=== PATIENT | male | born 1950 | race Caucasian/White ===

== ENCOUNTER 2016-05-25 16:18 | Emergency (ER) | payer OTHER ==
[~2016-05-25] VITALS: Ht 182.9 cm; Wt 97.1 kg
[~2016-05-25 16:18] MED LIST: CHOL100010 PO; CIPR-255 PO; CLC100 PO; DTR5 PO; LISI20TA3 PO; MULT-506 PO; OMEG10007 PO; OXYC-59 PO; OXYC1TAB3 PO; PRAV20TA PO; PXL/40 PO
[2016-05-25 16:24] VITALS: TEMP 36.7; Ht 182.9 cm; Wt 97.1 kg
[2016-05-25] MEDS ORDERED: CIPROFLOXACIN 500 MG TAB PO STA (17:07)
[2016-05-25] MEDS ORDERED: CIPR-255 PO (17:20)
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
[2016-05-25] MEDS ORDERED: PXL20 PO (17:36)
[2016-05-25] MEDS ORDERED: PRVC/20 PO (17:36)
[2016-05-25] MEDS ORDERED: LSN20 PO (17:36)
[2016-05-25] MEDS ORDERED: OXYC-609 PO (17:42)
[2016-05-25 17:44] LABS: MANUAL MICROSCOPIC REQUIRED? YES; REVIEW REQ? NO; SULFASALICYLIC ACID POS (NEG); URINE APPEARANCE T (CLEAR); URINE COLOR RED; URINE SPECIFIC GRAVITY 1.029 (1.000-1.030)
[2016-05-25 17:54] LABS: URINE BACTERIA 1+ (NEG); URINE RBC >30 /hpf (0-4); URINE WBC >30 /hpf (0-5); ZZUR CULT IF INDIC CLEAN CATCH YES
[2016-05-25 18:11] VITALS: BP 135/80; PULSE 79; O2SAT 98
[2016-05-25] MEDS ORDERED: METF-384 PO (22:47)
== END 2016-05-25 17:50 | disposition home or self-care (01) ==
LOC: C.EDB 16:19 → C.EDC 17:50
DX: R31.9 Hematuria, unspecified (principal); I10 Essential (primary) hypertension; Z98.890 Other specified postprocedural states; F17.200 Nicotine dependence, unspecified, uncomplicated; Z83.3 Family history of diabetes mellitus; Z80.9 Family history of malignant neoplasm, unspecified; Z88.0 Allergy status to penicillin; Z85.46 Personal history of malignant neoplasm of prostate

== ENCOUNTER 2016-06-08 20:30 | Emergency (ER) | payer OTHER ==
[~2016-06-08] VITALS: Ht 182.9 cm; Wt 102.3 kg
[~2016-06-08 20:30] MED LIST changes: -LISI20TA3 PO; +LSN20 PO; +METF-384 PO; -OXYC-59 PO; +OXYC-609 PO; -OXYC1TAB3 PO; -PRAV20TA PO; +PRVC/20 PO; -PXL/40 PO; +PXL20 PO
[2016-06-08 20:35] VITALS: TEMP 36.7; Ht 182.9 cm; Wt 102.3 kg
[2016-06-08 20:37] VITALS: O2SAT 98
[2016-06-08] MEDS ORDERED: SODIUM CHLORIDE 0.9% 1000ML 1,000 ML IV STA (20:45)
[2016-06-08 21:00] LABS: BASO % 0.1 %; BASO ABS # 0.01 K/uL (0-0.2); COMPLETE YES; EOS % 2.8 %; HEMATOCRIT 40.3 % (42-52); IG% 0.3 %; LYMPH % 21.1 %; LYMPH ABS # 2.48 K/uL (1.2-3.4); MEAN CELL VOLUME 90.8 fL (80-100); MEAN CORPUSCULAR HEMOGLOBIN 32.4 pg (25-34); MEAN CORPUSCULAR HGB CONC 35.7 g/dl (32-36); MEAN PLATELET VOLUME 9.3 fL (7.4-10.4); MONO % 7.7 %; PLATELET COUNT 377 K/uL (130-400); RED BLOOD COUNT 4.44 M/uL (4.7-6.1); WHITE BLOOD COUNT 11.73 K/uL (4.8-10.8)
--- NOTE | 2016-06-08 21:18 | DIAGNOSTIC IMAGING REPORT ---
HEAD CT NONCONTRAST CT DOSE: 712.55 mGy.cm HISTORY: Mental status change altered ms and headache TECHNIQUE: Multiaxial CT images of the head were performed without the use of intravenous contrast. Comparison: None. Findings: The paranasal sinuses and mastoid air cells are clear. The calvarium and skull base are intact. The ventricles and sulci are within normal limits. There is no mass, hematoma, midline shift, or acute infarct. Impression: No acute intracranial abnormality. Electronically signed by: Calixto Walker M.D. 06/08/2016 9:16 PM Dictated Date/Time: 06/08/2016 9:16 PM
[2016-06-08 21:23] LABS: ALT/SGPT 24 U/L (12-78); BLOOD UREA NITROGEN 30 mg/dl (7-18); BUN/CREATININE RATIO 14.3 (10-20); CALCIUM 8.8 mg/dl (8.5-10.1); CARBON DIOXIDE 22 mmol/L (21-32); CHLORIDE 104 mmol/L (98-107); GLUCOSE 115 mg/dl (70-99); POTASSIUM 4.1 mmol/L (3.5-5.1); SODIUM 139 mmol/L (136-145)
[2016-06-08 21:33] LABS: ALKALINE PHOSPHATASE 119 U/L (45-117); AST/SGOT 20 U/L (15-37); CKMB/CK RATIO 1.7 (0-3.0)
[2016-06-08 21:56] LABS: REVIEW REQ? NO; URINE APPEARANCE CLEAR (CLEAR); URINE BILIRUBIN NEG (NEG); URINE COLOR YELLOW; URINE EPITHELIAL CELL AUTO 20-30 /lpf (0-5); URINE NITRITE NEG (NEG); URINE PH 5.5 (4.5-7.5); URINE SPECIFIC GRAVITY 1.021 (1.000-1.030); UROBILINOGEN NEG (NEG)
[2016-06-08 21:57] LABS: MANUAL MICROSCOPIC REQUIRED? NO
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
[2016-06-08] MEDS ORDERED: OXYCODONE IR HOME PACK PO ONE (23:30)
[2016-06-08 23:35] VITALS: BP 114/78; PULSE 69; O2SAT 98
== END 2016-06-08 23:35 | disposition home or self-care (01) ==
LOC: EDBD 20:30 → C.EDB 20:33
DX: R55 Syncope and collapse (principal); N28.9 Disorder of kidney and ureter, unspecified; E11.9 Type 2 diabetes mellitus without complications; I10 Essential (primary) hypertension; R41.0 Disorientation, unspecified; Z85.46 Personal history of malignant neoplasm of prostate; Z90.79 Acquired absence of other genital organ(s); Z98.890 Other specified postprocedural states; Z82.49 Family history of ischemic heart disease and other diseases of the circulatory system; Z79.84 Long term (current) use of oral hypoglycemic drugs; Z79.899 Other long term (current) drug therapy

== ENCOUNTER → 2016-06-23 | Outpatient (CLI) | payer OTHER ==
[~2016-06-23] MED LIST changes: -CIPR-255 PO; -DTR5 PO
--- NOTE | 2016-06-23 11:29 | DIAGNOSTIC IMAGING REPORT ---
C-SPINE ROUTINE 4 OR 5 VIEWS CLINICAL HISTORY: Cervical radiculopathy. COMPARISON STUDY: Cervical spine radiographs October 18, 2012 and MRI the cervical spine October 21, 2012 FINDINGS: Visualization of the cervical spine is adequate. Slight retrolisthesis of C5 on C6 is unchanged. There is moderate to marked disc space narrowing at this level. There is moderate to severe multilevel facet arthrosis most pronounced at the C4-C5 and C5-C6 levels. There is no fracture or suspicious lesion. IMPRESSION: 1. No cervical spine fracture or subluxation. 2. Moderate to severe multilevel degenerative disc disease and facet arthrosis, most pronounced at C5-C6. 3. Slight retrolisthesis of C5 on C6 which is unchanged. Electronically signed by: Issac Vu M.D. 06/23/2016 11:28 AM Dictated Date/Time: 06/23/2016 11:25 AM
[2016-06-23 12:14] LABS: BLOOD UREA NITROGEN 28 mg/dl (7-18); BUN/CREATININE RATIO 21.2 (10-20)
[2016-06-23 12:18] LABS: PROSTATE SPECIFIC ANTIGEN < 0.010 ng/ml (0.000-4.000)
== END | disposition home or self-care (01) ==
LOC: C.RAD 10:30
PROVIDERS: ATTEND Urology
DX: M54.2 Cervicalgia (principal); M54.12 Radiculopathy, cervical region

== ENCOUNTER → 2016-09-20 | Outpatient (CLI) | payer OTHER ==
[2016-09-20 13:27] LABS: BLOOD UREA NITROGEN 25 mg/dl (7-18)
== END | disposition home or self-care (01) ==
LOC: C.LAB 11:59
PROVIDERS: ATTEND Family Medicine
DX: R79.89 Other specified abnormal findings of blood chemistry (principal)

== ENCOUNTER 2016-10-03 10:16 | Emergency (ER) | payer OTHER ==
[~2016-10-03] VITALS: Ht 182.9 cm; Wt 98.7 kg
[2016-10-03 10:19] VITALS: Ht 182.9 cm; Wt 98.7 kg
[2016-10-03] MEDS ORDERED: KETOROLAC TROMETHAMINE 60 MG/2 ML VIAL IM STA (11:27)
[2016-10-03] MEDS ORDERED: HYDROmorphone INJ 1 MG/ML SYR IM STA (11:27)
[2016-10-03] MEDS ORDERED: ONDANSETRON 4MG OD TAB PO STA (11:27)
--- NOTE | 2016-10-03 12:07 | DIAGNOSTIC IMAGING REPORT ---
LEFT SHOULDER MIN 2 VIEWS ROUTINE CLINICAL HISTORY: Left shoulder pain following lifting. COMPARISON: None FINDINGS: Alignment of the left shoulder is anatomic. There is no fracture or suspicious lesion. There is moderate AC joint arthrosis and mild glenohumeral joint arthrosis. IMPRESSION: 1. No acute fracture or dislocation of the left shoulder. 2. Moderate left acromioclavicular joint osteoarthritis and mild left glenohumeral joint arthritis. Electronically signed by: Issac Vu M.D. 10/03/2016 12:06 PM Dictated Date/Time: 10/03/2016 12:05 PM
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
[2016-10-03 13:23] VITALS: BP 121/88; PULSE 71; TEMP 36.8; O2SAT 94
== END 2016-10-03 13:24 | disposition home or self-care (01) ==
LOC: C.EDB 10:18
DX: M25.512 Pain in left shoulder (principal); M54.2 Cervicalgia; G89.29 Other chronic pain; E11.9 Type 2 diabetes mellitus without complications; I10 Essential (primary) hypertension; Z79.899 Other long term (current) drug therapy

== ENCOUNTER → 2016-10-29 | Outpatient (CLI) | payer OTHER | END | disposition home or self-care (01) | LOC: C.RDSM 14:22 | PROVIDERS: ATTEND Family Medicine | DX: M65.812 Other synovitis and tenosynovitis, left shoulder (principal); M54.5 Low back pain; C61 Malignant neoplasm of prostate ==

== ENCOUNTER → 2016-11-01 | Outpatient (CLI) | payer OTHER ==
--- NOTE | 2016-11-01 14:54 | DIAGNOSTIC IMAGING REPORT ---
WHOLE-BODY NUCLEAR BONE SCAN CLINICAL HISTORY: Low back pain. Reported history of prostate cancer. COMPARISON STUDY: Bone scan of the cervical spine. Radiographs of the lumbar spine dated 10/29/2016. Abdominal CT dated 06/28/2015.. TECHNIQUE: Three hours following the IV administration of 26.7 mCi of technetium 99m MDP, whole body nuclear bone scan was performed in the anterior and posterior projections. FINDINGS: There is no abnormal osseous tracer deposition identified typical in appearance for bony metastatic disease. Typically degenerative uptake is identified in the shoulders, knees, hips, ankles, and feet. Typically degenerative activity is seen throughout the spine, greatest in the lumbar region. There is paraspinous activity consistent with bone graft material from previous spinal surgery. There is expected excreted activity within the renal collecting system and bladder. IMPRESSION: 1. There is no abnormal tracer deposition identified typical in appearance for bony metastatic disease. 2. Typically degenerative as well as postoperative activity is noted throughout the spine. Electronically signed by: Perry Noe M.D. 11/01/2016 2:52 PM Dictated Date/Time: 11/01/2016 2:39 PM
== END | disposition home or self-care (01) ==
LOC: C.NUCL 10:34
PROVIDERS: ATTEND Family Medicine
DX: M54.5 Low back pain (principal); C61 Malignant neoplasm of prostate

== ENCOUNTER → 2016-11-10 | Outpatient (CLI) | payer OTHER ==
[2016-11-10 10:56] LABS: BLOOD UREA NITROGEN 36 mg/dl (7-18); BUN/CREATININE RATIO 29.8 (10-20)
[2016-11-10 11:02] LABS: PROSTATE SPECIFIC ANTIGEN < 0.010 ng/ml (0.000-4.000)
== END | disposition home or self-care (01) ==
LOC: C.LAB 10:01
PROVIDERS: ATTEND Urology
DX: N52.9 Male erectile dysfunction, unspecified (principal)

== ENCOUNTER 2017-01-12 15:51 | Emergency (ER) | payer OTHER ==
[~2017-01-12] VITALS: Ht 182.9 cm; Wt 101.0 kg
[2017-01-12 15:53] VITALS: Ht 182.9 cm; Wt 101.0 kg
[2017-01-12 17:53] VITALS: BP 159/80; PULSE 75; TEMP 36.7; O2SAT 96
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
== END 2017-01-12 17:53 | disposition home or self-care (01) ==
LOC: C.EDB 15:53 → C.EDD 17:53
DX: M54.2 Cervicalgia (principal); M54.5 Low back pain; M25.511 Pain in right shoulder; M25.512 Pain in left shoulder; E11.9 Type 2 diabetes mellitus without complications; H02.009 Unspecified entropion of unspecified eye, unspecified eyelid; I10 Essential (primary) hypertension

== ENCOUNTER → 2017-02-06 | Outpatient (CLI) | payer OTHER ==
[~2017-02-06] MED LIST changes: -CHOL100010 PO; -CLC100 PO; -OXYC-609 PO
== END | disposition home or self-care (01) ==
LOC: C.RDSM 13:48
PROVIDERS: ATTEND Family Medicine
DX: M25.512 Pain in left shoulder (principal)

== ENCOUNTER → 2017-05-02 | Outpatient (CLI) | payer OTHER, MEDICARE ==
--- NOTE | 2017-05-02 09:16 | DIAGNOSTIC IMAGING REPORT ---
LUMBAR SPINE W/O CONTRAST HISTORY: Pain. Neuropathy. LUMBAR PAIN TECHNIQUE: Multiplanar multisequence MRI of the lumbar spine was performed without the use of contrast. COMPARISON: None. FINDINGS: For the purpose of the report the L5-S1 disc space will be located on axial image 28 of 30. Findings consistent with a posterior laminectomy and fusion with interpedicular screws from L3 through S1. Vertebral body alignment is anatomic. There is moderate degenerative disc changes throughout. Sagittal images suggest narrowing of the spinal canal at L2-L3. L1-L2: No significant central canal or neural foraminal narrowing. L2-L3: Moderate multifactorial narrowing of the spinal canal. Moderate broad-based disc herniation. Moderate impact upon the anterior thecal sac. Mild narrowing of the neuroforamina bilaterally. This is slightly more prominent on the right. L3-L4: Posterior laminectomy and fusion. No significant narrowing of the spinal canal L4-L5: Posterior laminectomy and fusion. No significant narrowing of spinal canal. L5-S1: Posterior laminectomy and fusion. No significant narrowing of spinal canal. IMPRESSION: 1. Moderate multifactorial narrowing of the spinal canal at L2-L3 associated with a moderate broad-based disc herniation. 2. There is also narrowing to a significant degree of the right and to lesser extent left neural foramina. 3. Findings consistent with posterior laminectomy and fusion from L3 through S1 with the spinal canal widely patent at those sites The above report was generated using voice recognition software. It may contain grammatical, syntax or spelling errors. Electronically signed by: Calixto Walker M.D. 05/02/2017 9:15 AM Dictated Date/Time: 05/02/2017 9:07 AM
== END | disposition home or self-care (01) ==
LOC: C.MRI 08:06
PROVIDERS: ATTEND Orthopaedic Surgery Orthopaedic Surgery of the Spine
DX: M54.5 Low back pain (principal); M99.73 Connective tissue and disc stenosis of intervertebral foramina of lumbar region

== ENCOUNTER 2017-05-18 19:43 | Emergency (ER) | payer OTHER, MEDICARE ==
[~2017-05-18] VITALS: Ht 182.9 cm; Wt 98.0 kg
[~2017-05-18 19:43] MED LIST changes: -METF-384 PO
[2017-05-18 19:50] VITALS: TEMP 36.7; Ht 182.9 cm; Wt 98.0 kg
[2017-05-18] MEDS ORDERED: HYDROmorphone INJ 2 MG/ML SYR/VIAL IM STA (20:19)
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
[2017-05-18] MEDS ORDERED: VLM5CL PO (20:49)
[2017-05-18] MEDS ORDERED: SILD1TAB20 PO (20:49)
[2017-05-18] MEDS ORDERED: OXYC-164 PO (20:49)
[2017-05-18 21:01] VITALS: BP 120/69; PULSE 69; O2SAT 94
[2017-05-18] MEDS ORDERED: METF-384 PO (22:47)
== END 2017-05-18 21:02 | disposition home or self-care (01) ==
LOC: C.EDB 19:44 → C.EDD 21:02
DX: M54.5 Low back pain (principal); M25.512 Pain in left shoulder; M54.2 Cervicalgia; E11.9 Type 2 diabetes mellitus without complications; I10 Essential (primary) hypertension; Z79.899 Other long term (current) drug therapy

== ENCOUNTER → 2017-08-02 | Outpatient (CLI) | payer OTHER, MEDICARE ==
[~2017-08-02] MED LIST changes: +METF-384 PO; +OXYC-164 PO; +SILD1TAB20 PO; +VLM5CL PO
[2017-08-02 10:29] LABS: ALBUMIN 3.7 gm/dl (3.4-5.0); ALT/SGPT 21 U/L (12-78); BLOOD UREA NITROGEN 19 mg/dl (7-18); CALCIUM 8.2 mg/dl (8.5-10.1); CARBON DIOXIDE 24 mmol/L (21-32); CHOLESTEROL 227 mg/dl (0-200); CREATININE 1.59 mg/dl (0.60-1.40); GLUCOSE 114 mg/dl (70-99); POTASSIUM 4.1 mmol/L (3.5-5.1); SODIUM 134 mmol/L (136-145)
[2017-08-02 10:32] LABS: ALKALINE PHOSPHATASE 76 U/L (45-117); AST/SGOT 28 U/L (15-37); LDL CHOLESTEROL CALCULATED 172 mg/dl; TOTAL PROTEIN 7.2 gm/dl (6.4-8.2)
[2017-08-02 10:32] LABS: BLOOD UREA NITROGEN 19 mg/dl (7-18); CREATININE 1.52 mg/dl (0.60-1.40)
[2017-08-02 10:43] LABS: HEMOGLOBIN A1C 5.5 % (4.5-5.6)
== END | disposition home or self-care (01) ==
LOC: C.LAB 07:10
PROVIDERS: ATTEND Nurse Practitioner Family
DX: E78.5 Hyperlipidemia, unspecified (principal); I10 Essential (primary) hypertension; E11.9 Type 2 diabetes mellitus without complications

== ENCOUNTER 2017-08-10 21:33 | Emergency (ER) | payer OTHER, MEDICARE ==
[~2017-08-10] VITALS: Ht 182.9 cm; Wt 95.4 kg
[2017-08-10 21:39] VITALS: Ht 182.9 cm; Wt 95.4 kg
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
[2017-08-10 22:31] VITALS: BP 146/86; PULSE 78; TEMP 36.7; O2SAT 97
== END 2017-08-10 22:32 | disposition home or self-care (01) ==
LOC: C.EDB 21:35 → C.EDC 22:32
DX: M54.9 Dorsalgia, unspecified (principal); E11.9 Type 2 diabetes mellitus without complications; I10 Essential (primary) hypertension; Z82.49 Family history of ischemic heart disease and other diseases of the circulatory system

== ENCOUNTER 2017-11-28 22:41 | Emergency (ER) | payer OTHER, MEDICARE ==
[~2017-11-28] VITALS: Ht 182.9 cm; Wt 91.9 kg
[~2017-11-28 22:41] MED LIST changes: +LISI-726 PO; -LSN20 PO; +MRPSR15 PO; -OXYC-164 PO; +PARO1TAB27 PO; +PRX/40 PO; -PXL20 PO; +RXC5 PO; -SILD1TAB20 PO; +SILD1TAB31 PO
[2017-11-28 22:46] VITALS: TEMP 36.8; Ht 182.9 cm; Wt 91.9 kg
[2017-11-28] MEDS ORDERED: MoRPHine SULFATE 10 MG/ML CARP/VIAL IM STA (23:11)
[2017-11-28] MEDS ORDERED: DEXAMETHASONE **PF** INJ 10 MG/ML VIAL IM STA (23:11)
[2017-11-28] MEDS ORDERED: GLUCTAB7 PO (23:34)
[2017-11-28] MEDS ORDERED: MULTCAP7 PO (23:34)
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
--- NOTE | 2017-11-29 00:45 | EMERGENCY ROOM VISIT NOTE ---
ED Visit Note First contact with patient: 23:00 Staff note: I have reviewed the Patients chart and have discussed this case with my PA. I generally agree with the ED note and findings.
[2017-11-29 00:50] VITALS: BP 123/79; PULSE 80; O2SAT 94
[2017-11-29] MEDS ORDERED: METH4PAK PO (01:10)
--- NOTE | 2017-11-29 06:42 | DIAGNOSTIC IMAGING REPORT ---
L-SPINE MIN 4 VIEWS ROUTINE HISTORY: 67 years-old Male low back pain with right radiculopathy acute low back pain COMPARISON: Spot fluoroscopic images of the lumbar spine 10/03/2017 TECHNIQUE: 5 views of the lumbar spine FINDINGS: Prior laminectomy with posterior interbody sherry and screw fusion and L2-S1. Discectomy changes at L2-L3, L4-L5 and L5-S1. No evidence of hardware fracture or loosening. There is 4 mm retrolisthesis L3 on L4 with otherwise satisfactory alignment. Multilevel spondylitic spurring. Intervertebral disc space narrowing is seen about the imaged lower thoracic spine and also at L3-L4. IMPRESSION: 1. No acute fracture. 2. Postoperative changes of the lumbar spine as above. No evidence of hardware fracture or loosening. 3. 4 mm retrolisthesis L3 on L4. The above report was generated using voice recognition software. It may contain grammatical, syntax or spelling errors. Electronically signed by: Wolfgang Cedillo M.D. 11/29/2017 6:40 AM Dictated Date/Time: 11/29/2017 6:37 AM
--- NOTE | 2017-11-29 06:54 | DIAGNOSTIC IMAGING REPORT ---
CERVICAL SPINE 2 OR 3 VIEWS HISTORY: 67 years-old Male neck pain acute neck pain without known injury COMPARISON: Cervical spine radiographs 06/23/2016 TECHNIQUE: 3 views of the cervical spine FINDINGS: Moderate to severe intervertebral disc space narrowing at C5-C6 with spondylitic spurring. Unchanged 3 mm retrolisthesis C5 on C6, likely degenerative. Mild multilevel facet arthropathy, at least moderate within the lower cervical spine levels. There is mild straightening of the normal cervical lordosis. No acute fracture or subluxation is identified. No prevertebral soft tissue swelling. The imaged lung apices are clear. IMPRESSION: 1. No acute fracture or subluxation. 2. Moderate to severe intervertebral disc space narrowing redemonstrated at C5-C6. 3. Multilevel facet arthropathy. The above report was generated using voice recognition software. It may contain grammatical, syntax or spelling errors. Electronically signed by: Wolfgang Cedillo M.D. 11/29/2017 6:53 AM Dictated Date/Time: 11/29/2017 6:51 AM
== END 2017-11-29 00:53 | disposition home or self-care (01) ==
LOC: C.EDB 22:43 → C.EDC 11-29 00:53
DX: G89.29 Other chronic pain (principal); M54.41 Lumbago with sciatica, right side; M54.2 Cervicalgia; M25.512 Pain in left shoulder; E11.9 Type 2 diabetes mellitus without complications; Z79.84 Long term (current) use of oral hypoglycemic drugs; E78.5 Hyperlipidemia, unspecified; Z98.1 Arthrodesis status; Z88.0 Allergy status to penicillin; Z91.048 Other nonmedicinal substance allergy status

== ENCOUNTER 2018-06-16 05:48 | Observation (INO) ==
--- NOTE | 2018-06-02 09:07 | Anesthesiology Consultation ---
Date of Service June 02, 2018 Assessment & Plan (1) Encounter for pre-operative examination: Plan: - Check BSG AM DOS Chart Review Chart Review: Acceptable Risk for Surgery and Patient seen in Pre Admission Testing Teaching & Discussion Pre-Anesthesia Teaching/Discussion Notes: Instructed NPO after midnight before surgery,except medications with 15 cc of water. Medication instructions provided according to the PAT guidelines. History Surgery Operation Date: 06/16/18 07:45 Proposed Procedures p C5-C6 Anterior Cervical Discectomy and Fusion - Sanchez Blank DO Height/Weight Height: 6 ft Weight: 95 kg Allergies Allergy/AdvReac Type Severity Reaction Status Date / Time mold Allergy Mild NASAL Verified 05/29/18 08:39 CONGESTION,DIFFICULTY BREATHING Penicillins Allergy Mild CHILD Verified 05/29/18 08:39 RASH HIVES Dust Allergy Intermediate receives Uncoded 05/29/18 08:39 allergy shots-NASAL CONGESTION,DIFFICULTY BREATHING Medications Home Medications Medication Instructions Recorded Confirmed Last Taken diazepam [Valium] 5 mg PO HS 01/28/18 05/29/18 05/14/18 glucosamine-chondroitin 1 tab PO 01/28/18 05/29/18 05/14/18 lisinopril [Zestril] 20 mg PO HS 01/28/18 05/29/18 05/14/18 metformin 500 mg PO HS 01/28/18 05/29/18 05/14/18 multivitamin 1 tab PO 01/28/18 05/29/18 05/14/18 omega 6-hir-njn-fish oil [Fish Oil] 1 cap PO 01/28/18 05/29/18 05/14/18 paroxetine HCl [Paxil] 40 mg PO 01/28/18 05/29/18 05/14/18 paroxetine HCl [Paxil] 60 mg PO 01/28/18 05/29/18 05/14/18 pravastatin [Pravachol] 20 mg PO 01/28/18 05/29/18 05/14/18 meloxicam 15 mg PO 05/09/18 05/29/18 05/14/18 Past Medical History Medical History Anxiety CKD (chronic kidney disease) Cancer PROSTATE CANCER (2017) Depression 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, type 2 NIDDM Hepatitis C "RESOLVED" SPONTANEOUSLY Hyperlipidemia Hypertension Past Family History Family History Uncle Family history of diabetes mellitus Mother FHx: breast cancer Aneurysm FRONTAL LOBE Father FHx: aortic aneurysm Past Surgical History Surgical History History of spinal fusion LUMBAR AREA X2 History of appendectomy History of colonoscopy History of herniorrhaphy INGUINAL HERNIA REPAIR History of nasal septoplasty History of prostatectomy History of repair of rotator cuff B/L History of tonsillectomy Past Anesthesia History No Hx of Anesthesia Complications and No Family Hx of Anesthesia Complications History of PONV No Motion Sickness Screening History of Motion Sickness: No STOP BANG Total 5 Social History Smoking Status: Former smoker tobacco type: cigarettes Smoking cigarettes per day: QUIT 1979 Do You Dip or Chew Tobacco: No Hx Alcohol Use: No Hx Substance Use: No substance use type: does not use Exercise / Class Metabolic Activity II 4-5 Yardwork/Stairs/Walk up hill Review of Systems Patient denies chest pain, shortness of breath, dyspnea on exertion, wheezing, palpitations. Physical Exam Vital Signs VITALS BP 131/80 P 86 TEMP 98.2 SP02 95%RA RESP 16 Full neck and c-spine range of motion. Full TMJ range of motion. TMD 3 finger breaths Mallampati Score 2 Dentition: cavity "fell out" on right upper, upper front caps, crown on molar Lungs: clear throughout to auscultation Cardiac: regular rate and rhythm, no murmurs noted Spine: normal Carotid arteries: negative bruit Extremities: no edema Testing Electrocardiogram Date: 09/04/17 Findings: + NSR @ (76) Chest X-Ray Date: 09/04/17 Findings: + NAD Laboratory Results Blood Type A Positive 06/02/18 10:01 Antibody Screen NEGATIVE 06/02/18 10:01 PT 10.4 Seconds (9.0-12.0) 06/02/18 10:01 INR 1.0 (0.9-1.1) 06/02/18 10:01 APTT 23.1 Seconds (21.0-31.0) 06/02/18 10:01 Hemoglobin A1c 5.5 % (4.5-5.6) 06/02/18 10:01 Urine Color Dark Yellow 06/02/18 Unknown Urine Appearance Clear (Clear) 06/02/18 Unknown Urine pH 5.0 (4.5-7.5) 06/02/18 Unknown Ur Specific Kenney 1.024 (1.000-1.030) 06/02/18 Unknown Urine Protein Trace (Negative) H 06/02/18 Unknown Urine Glucose (UA) Negative (Negative) 06/02/18 Unknown Urine Ketones Trace (Negative) H 06/02/18 Unknown Urine Nitrite Negative (Negative) 06/02/18 Unknown Ur Leukocyte Esterase Negative (Negative) 06/02/18 Unknown Urine WBC (Auto) 5-10 /hpf (0-5) H 06/02/18 Unknown Urine RBC (Auto) 5-10 /hpf (0-4) H 06/02/18 Unknown U Hyaline Cast (Auto) 5-10 /lpf (0-5) H 06/02/18 Unknown U Epithel Cells (Auto) >30 /lpf (0-5) H 06/02/18 Unknown Urine Bacteria (Auto) Negative (Negative) 06/02/18 Unknown 05/09/18 WBC 6.1 H/H 14.8/41.5 PLATELETS 240 SODIUM 142 POTASSIUM 4.0 CHLORIDE 109 CO2 26 BUN 17 CREATININE 1.44 GLUCOSE 95
--- NOTE | 2018-06-02 09:09 | PAT Medication Instructions ---
Medication Instructions Date of Service June 02, 2018 Home Medications diazepam [Valium] 5 mg PO HS glucosamine-chondroitin 1 tab PO HS lisinopril [Zestril] 20 mg PO HS metformin 500 mg PO HS multivitamin 1 tab PO HS omega 9-tud-scf-fish oil [Fish Oil] 1 cap PO HS paroxetine HCl [Paxil] 40 mg PO HS paroxetine HCl [Paxil] 60 mg PO HS pravastatin [Pravachol] 20 mg PO HS meloxicam 15 mg PO HS ASK your surgeon for instructions meloxicam 15 mg PO HS STOP taking 2 weeks before surgery (or as soon as possible if surgery is within 2 weeks) omega 7-kno-pdn-fish oil [Fish Oil] 1 cap PO HS glucosamine-chondroitin 1 tab PO HS Take evening before surgery diazepam [Valium] 5 mg PO HS lisinopril [Zestril] 20 mg PO HS metformin 500 mg PO HS multivitamin 1 tab PO HS paroxetine HCl [Paxil] 40 mg PO HS paroxetine HCl [Paxil] 60 mg PO HS pravastatin [Pravachol] 20 mg PO HS Other Notes If you have any questions please call us at [phone] or [phone] or [phone] or [phone]
[2018-06-02 10:57] LABS: Estimated Average Glucose 111 mg/dl
[2018-06-02 11:18] LABS: Appearance Urine Clear (Clear); Bacteria Urine Automated Negative (Negative); Bilirubin Urine Negative (Negative); Color Urine Dark Yellow; Epithelial Cell Urine Auto >30 /lpf (0-5); Glucose Urine UA Negative (Negative); Ketones Urine Trace (Negative); Leukocyte Esterase Urine Negative (Negative); Nitrite Urine Negative (Negative); Protein Urine Trace (Negative); Specific Gravity Urine 1.024 (1.000-1.030); Urobilinogen Urine Negative (Negative)
[2018-06-02 11:28] LABS: Partial Thromboplastin Ratio 0.9; Partial Thromboplastin Time 23.1 Seconds (21.0-31.0); Prothrombin Time 10.4 Seconds (9.0-12.0)
[2018-06-16] MEDS ORDERED: ACETAMINOPHEN 500 MG TAB PO SCH (06:00)
[2018-06-16] MEDS ORDERED: LR 15ML/HR IV SCH (06:00)
[2018-06-16] MEDS ORDERED: CeleBREX 200 MG CAP PO SCH (06:00)
[2018-06-16] MEDS ORDERED: CEFAZOLIN 2000MG 2,000 MG/15 ML SYR IV SCH (06:00)
[2018-06-16] MEDS ORDERED: CLINDAMYCIN 600 MG/54 ML BAG IV SCH (06:00)
[2018-06-16] MEDS ORDERED: CIPROFLOXACIN 400 MG/200 ML BAG IV SCH (06:00)
[2018-06-16] MEDS ORDERED: GABAPENTIN 300 MG PO SCH (06:00)
[2018-06-16] MEDS ORDERED: LIDOCAINE HCL 2% 2 ML VIAL/AMP(20MG/ML) INFIL ONE (06:34)
[2018-06-16] MEDS ORDERED: ROCURONIUM BROMIDE 10 MG/ML 5 ML VIAL ONE (06:34)
[2018-06-16] MEDS ORDERED: PROPOFOL IV EMULSION 10 MG/ML 20 ML VIAL IV ONE (06:34)
[2018-06-16] MEDS ORDERED: fentaNYL citrate 100 MCG/2 ML VIAL ONE ×2 (06:35→08:05)
[2018-06-16] MEDS ORDERED: MIDAZOLAM HCL 1 MG/ML 2ML VIAL ONE (06:35)
[2018-06-16] MEDS ORDERED: BACITRACIN INJ 50,000 UNIT VIAL ONE (06:47)
[2018-06-16] MEDS ORDERED: ePHEDrine sulfate 50 MG/ML AMP IV PRN (07:28)
[2018-06-16] MEDS ORDERED: PHENYLEPHRINE 100MCG/ML 5ML SYR IV PRN (07:28)
[2018-06-16] MEDS ORDERED: LABETALOL HCL IV 5 MG/ML 20ML IV PRN (07:28)
[2018-06-16] MEDS ORDERED: ATROPINE SULFATE 0.1 MG/ML 10ML SYR IV PRN (07:28)
[2018-06-16] MEDS ORDERED: MEPERIDINE HCL 25 MG/ML CARP IV PRN (07:28)
[2018-06-16] MEDS ORDERED: ONDANSETRON INJ 2 MG/ML 2 ML VIAL IV PRN ×2 (07:28→10:42)
--- NOTE | 2018-06-16 07:33 | History & Physical Bridge Note ---
Date of Service June 16, 2018 History & Physical Bridge Note I have examined the patient, reviewed the History & Physical and in the interval since the performance of the History & Physical I have noted the following changes of clinical significance: no changes noted
--- NOTE | 2018-06-16 07:34 | History & Physical Report ---
Date of Service June 16, 2018 Assessment & Plan (1) Cervical stenosis of spinal canal: Anterior cervical discectomy and fusion C5-6 Present on Admission?: Yes History of Present Illness Chief Complaint: Neck and arm pain Primary Care Provider: Ilia Gonzalez MD This is a 68-year-old male well-known to me that presents with chronic persistent neck and arm pain. After failing extensive course of nonoperative care is here for surgical intervention. Allergies Allergy/AdvReac Type Severity Reaction Status Date / Time mold Allergy Mild NASAL Verified 06/16/18 06:07 CONGESTION,DIFFICULTY BREATHING Penicillins Allergy Mild CHILD Verified 06/16/18 06:07 RASH HIVES Dust Allergy Intermediate receives Uncoded 06/16/18 06:07 allergy shots-NASAL CONGESTION,DIFFICULTY BREATHING Home Medications Home Medications Medication Instructions Recorded Confirmed Type diazepam [Valium] 5 mg PO HS 01/28/18 06/16/18 History glucosamine-chondroitin 1 tab PO HS 01/28/18 06/16/18 History lisinopril [Zestril] 20 mg PO HS 01/28/18 06/16/18 History metformin 500 mg PO HS 01/28/18 06/16/18 History multivitamin 1 tab PO HS 01/28/18 06/16/18 History omega 8-nqy-sek-fish oil [Fish Oil] 1 cap PO HS 01/28/18 06/16/18 History paroxetine HCl [Paxil] 40 mg PO HS 01/28/18 06/16/18 History paroxetine HCl [Paxil] 60 mg PO HS 01/28/18 06/16/18 History pravastatin [Pravachol] 20 mg PO HS 01/28/18 06/16/18 History meloxicam 15 mg PO HS 05/09/18 06/16/18 History oxycodone [OxyContin] 10 mg PO PRN 06/16/18 History Past Med/Surg History Medical History Anxiety CKD (chronic kidney disease) Cancer PROSTATE CANCER (2017) Depression 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, type 2 NIDDM Hepatitis C "RESOLVED" SPONTANEOUSLY Hyperlipidemia Hypertension Surgical History History of spinal fusion LUMBAR AREA X2 History of appendectomy History of colonoscopy History of herniorrhaphy INGUINAL HERNIA REPAIR History of nasal septoplasty History of prostatectomy History of repair of rotator cuff B/L History of tonsillectomy Family History Uncle Family history of diabetes mellitus Mother FHx: breast cancer Aneurysm FRONTAL LOBE Father FHx: aortic aneurysm Social History marital status: Single Current Living Situation: Alone current occupational status: retired Other Information That Helps Us Care for You: No Feels Safe at Home: Yes Safety Concerns: Feels Safe At This Time Smoking Status: Former smoker Do You Dip or Chew Tobacco: No Hx Alcohol Use: No Hx Substance Use: No Beliefs That Will Affect Care: None Preferred Language: Gambian Communication Ability: Effective Fleet Coordinator Required: No Physical Exam 2 Vital Signs (Past 24 Hours): Last Vital Signs Temp 36.9 C 06/16/18 06:15 Pulse 71 06/16/18 06:15 Resp 20 06/16/18 06:15 BP 173/111 H 06/16/18 06:15 Pulse Ox 94 06/16/18 06:15 Results & Data Medications Administered Acetaminophen (Tylenol) 1,000 mg PO PREOP JORJE Stop: 06/16/18 18:00 Last Admin: 06/16/18 06:35 Dose: 1,000 mg Celecoxib (Celebrex) 200 mg PO PREOP JORJE Stop: 06/16/18 18:00 Last Admin: 06/16/18 06:35 Dose: 200 mg Gabapentin (Neurontin) 300 mg PO PREOP JORJE Stop: 06/16/18 18:00 Last Admin: 06/16/18 06:35 Dose: 300 mg Lactated Ringer's (Lr) 1,000 mls @ 15 mls/hr IV .Q24H JORJE Stop: 06/17/18 05:59 Last Admin: 06/16/18 06:35 Dose: 15 mls/hr
[2018-06-16] MEDS ORDERED: FLOSEAL HEMOSTATIC MATRIX 10ML TOP ONE (08:15)
[2018-06-16] MEDS ORDERED: HYDROmorphone INJ 2 MG/ML SYR/VIAL ONE (08:23)
--- NOTE | 2018-06-16 09:00 | Operative Report ---
Post Operative Report Pre & Post Diagnosis Operation Date: 06/16/18 07:45 Pre-Op Diagnosis: Cervical spinal stenosis with radiculopathy Post-Op Diagnosis: Same Procedure Operation Date: 06/16/18 07:45 Actual Procedures #1 anterior cervical discectomy bilateral foraminotomies C5-6. #2 anterior cervical arthrodesis C5-6. #3 history of cortical allograft 8 mm in height filled with DBM at C5-6. #4 application harmon plate and screws across C5-6. Surgeon Sanchez Blank DO Grinding Wheel Dresser Karolina Bae Estimated Blood Loss 20 Findings Consistent with Post-Op Diagnosis Specimens None Description of Procedure Patient was met with preoperatively case discussed all questions addressed. After informed consent obtained patient was taken to the operative suite underwent intubation and placed in a supine position on the Иван table the head Farmer head trimmer. All bony prominences well-padded eyes inspected to ensure no external pressure placed upon the. This point the anterior cervical spine was prepped and draped in normal sterile fashion with the assistance of fluoroscopy nodes identified the C5-6 disc space. A transverse incision was placed on the right anterior aspect of the cervical spine overlying this region. Sharp dissection with the assistance of bipolar elective cautery was performed down to and exposing the anterior cervical spine at C5-6. Self- retaining retractors placed. A complete discectomy of C5-6 was performed out to the uncovertebral joints bilaterally. [place] distracting pins were utilized to assist in visualization. Removed all posterior annular fibers and longitudinal ligament. Bilateral foraminotomies performed. Endplates then burred to subcortical bleeding bone and an 8 mm cortical allograft filled with DBM tamped in position. Distraction apparatus was removed and a harmon plate and screws applied with the assistance of fluoroscopy. 10 round TEJAS drain inserted. Incision was then closed with 2 Vicryl in a fashion of 4 Monocryl for final skin closure Steri-Strip sterile dressings placed. Patient will continue to PACU stable condition. Please note Karolina Bae present throughout the entire procedure involved in patient positioning complex portions of the surgery and final skin closure. I attest to the content of the Intraoperative Record and any orders documented therein. Any exceptions are noted below.
[2018-06-16] MEDS: fentaNYL citrate 100 MCG/2 ML VIAL IV PRN ×6 (09:14→09:49)
--- NOTE | 2018-06-16 09:27 | Fluoroscopy Report ---
FL cervical 2-3V CLINICAL HISTORY: C5-C6 ACDFfusion COMPARISON STUDY: 08/14/2006 FLUOROSCOPY TIME: 7 seconds NUMBER OF FLUOROSCOPIC IMAGES: 3 FINDINGS: Findings consistent with an anterior C5-C6 fusion. IMPRESSION: Anterior C5-C6 fusion. The above report was generated using voice recognition software. It may contain grammatical, syntax or spelling errors. Electronically signed by: Calixto Walker M.D. 06/16/2018 9:26 AM
[2018-06-16] MEDS: HYDROmorphone INJ 1 MG/ML SYRINGE IV PRN ×6 (09:39→10:14)
--- NOTE | 2018-06-16 10:13 | Anesthesiology Progress Note ---
Date of Service June 16, 2018 Anesthesia Post Procedure Vital Signs Vital Signs: Temp Pulse Pulse Resp BP Pulse Ox 06/16/18 10:05 78 19 139/89 99 06/16/18 09:55 76 13 146/97 H 99 06/16/18 09:45 78 17 144/83 H 100 06/16/18 09:35 78 17 162/105 H 100 06/16/18 09:25 83 17 161/107 H 100 06/16/18 09:15 87 11 L 157/100 H 90 06/16/18 09:08 37 C 88 18 174/96 H 94 06/16/18 06:15 36.9 C 71 20 173/111 H 94 Pain Intensity Medial Back: Pain Intensity: 3 Anterior Neck: Pain Intensity: 3 Notes Notes: I discussed with the patient and his sister to watch for any difficulty breathing or neck swelling once the patient is on the floor and to notify a nurse immediately if this is experienced.
[2018-06-16] MEDS ORDERED: DEXAMETHASONE SOD PHOSPHATE 8 MG in SYRINGE 0 ML IV PRN (10:42)
[2018-06-16] MEDS ORDERED: NALOXONE HCL 0.4 MG/1 ML VIAL/CARP IV PRN (10:42)
[2018-06-16] MEDS ORDERED: MAGNESIUM HYDROXIDE SUSP 30 ML UDC PO PRN (10:42)
[2018-06-16] MEDS ORDERED: LORazepam 0.5 MG/1 ML VIAL IV PRN (10:42)
[2018-06-16] MEDS ORDERED: DiphenhydrAMINE HCL 50 MG/ML VIAL IV PRN (10:42)
[2018-06-16] MEDS ORDERED: DO NOT ADMINISTER FLU VACCINE PRN (10:42)
[2018-06-16] MEDS ORDERED: DO NOT ADMINISTER PNEUMOCOCCAL VACCINE PRN (10:42)
[2018-06-16] MEDS ORDERED: ACETAMINOPHEN 1,000 MG/100 ML VIAL IV PRN (10:42)
[2018-06-16] MEDS ORDERED: RACEPINEPHRINE 2.25% NEBU SOLN 0.5 ML VIAL INH PRN (10:42)
[2018-06-16] MEDS: OXYCODONE HCL IR 5 MG TAB (IMMEDIATE RELEASE) PO PRN ×3 (11:49→23:31)
[2018-06-16] MEDS: LACTATED RINGER'S 1,000 ML IV SCH (11:50)
[2018-06-16] MEDS ORDERED: SCOPOLAMINE 1.5 MG TDSY TD SCH (12:00)
[2018-06-16] MEDS ORDERED: PHARMACY GLYCEMIC MGMT CONSULT PRN (14:42)
--- NOTE | 2018-06-16 14:57 | Pharmacy Report ---
Glycemic Control Consultation - Date of Service June 16, 2018 - Scope Scope: Glycemic Pharmacist consulted by Dr Blank on 06/16/18 for glycemic control and to write orders per [facility] inpatient glycemic control protocol - Objective Weight: 95.9 kg Accuchecks BSG (last 24hrs): 06/16/18 06/16/18 06/16/18 06:20 09:20 11:57 POC Glucose 100 H 108 H 121 H HbA1c: Hemoglobin A1c 5.5 % (4.5-5.6) 06/02/18 10:01 - Recent Pertinent Medications Outpatient Anti-diabetic Regimen: * Metformin 500 mg HS * A1c = 5.5 % 06/02/18 Risk Factors for Insulin Resistance: * Recent Surgery:POD #0 * Diet: T2DM, Clear Liquids : - Assessment & Plan Assessment & Plan: ASSESSMENT: * Mr. Coleman is a 68 yo m with history of type 2 DM, admitted following elective spinal surgery * Outpatient A1c is within normal limits indicating good control with metformin/ diet * BSGs have been within range post-surgical intervention * Patient has order for dexamethasone for stridor but no administrations documented * Will initiate novolog correctional scale for now and add carb coverage if needed. PLAN FOR INPATIENT GLYCEMIC CONTROL: * Hold basal insulin for now * Holding outpatient oral diabetes medications * Bolus insulin * NovoLog per scale ACHS or Q6hrs while NPO * Goal Range: Low 110 mg/dL - High 140 mg/dL * Correction Factor: 25 mg/dL/unit * Please note that the plan above was derived based on current level of insulin resistance and hospital stress. These recommendations are appropriate for inpatient admission only. Plan of care upon discharge will need to be reassessed to avoid potential outpatient hypo/hyperglycemia. Thank you.
[2018-06-16] MEDS: CHECK SCOPOLAMINE PATCH PLACEMENT SCH ×2 (15:32→23:31)
[2018-06-16] MEDS: HYDROmorphone INJ 0.5 MG/0.5 ML SYR IV PRN ×2 (16:02→21:21)
[2018-06-16] MEDS: CLINDAMYCIN 600 MG in DEXTROSE 5% 50 ML IV SCH ×2 (16:02→23:30)
[2018-06-16] MEDS: INSULIN ASPART 100 UNITS/ML 3 ML PEN SC SCH ×2 (18:10→21:01)
[2018-06-16] MEDS ORDERED: METFORMIN HCL 500 MG TAB PO SCH (21:00)
[2018-06-16] MEDS ORDERED: PRAVASTATIN SOD 20 MG TAB PO SCH (21:00)
[2018-06-16] MEDS ORDERED: LISINOPRIL 20 MG TAB PO SCH (21:00)
[2018-06-16] MEDS ORDERED: MULTIVITAMIN TAB PO SCH (21:00)
[2018-06-16] MEDS ORDERED: diazePAM 5 MG TABLET PO SCH (21:00)
[2018-06-16] MEDS ORDERED: PARoxetine HCl 20 MG TAB PO SCH (21:00)
[2018-06-16] MEDS ORDERED: PAROXETINE HCL 40 MG PO SCH (21:00)
[2018-06-16] MEDS: DOCUSATE SODIUM 100 MG CAP PO SCH (21:21)
[2018-06-17] MEDS: HYDROmorphone INJ 0.5 MG/0.5 ML SYR IV PRN ×3 (00:26→07:33)
[2018-06-17] MEDS: OXYCODONE HCL IR 5 MG TAB (IMMEDIATE RELEASE) PO PRN ×2 (03:29→08:21)
[2018-06-17] MEDS: LACTATED RINGER'S 1,000 ML IV SCH (07:00)
[2018-06-17] MEDS: CHECK SCOPOLAMINE PATCH PLACEMENT SCH (08:15)
--- NOTE | 2018-06-17 08:15 | Anesthesiology Progress Note ---
Date of Service June 17, 2018 Anesthesia Post Procedure Vital Signs Vital Signs: Temp Pulse Pulse Resp BP Pulse Ox Pulse Ox 06/17/18 07:40 36.4 C L 66 18 119/79 98 97 06/17/18 07:18 63 16 96 06/17/18 06:00 36.4 C L 68 16 117/68 94 06/17/18 04:05 36.6 C 61 18 107/66 94 06/17/18 03:36 66 20 94 06/17/18 01:58 36.7 C 69 16 118/71 96 06/16/18 23:41 36.5 C 66 16 127/76 94 06/16/18 23:19 86 18 93 06/16/18 22:30 36.7 C 69 18 127/73 93 06/16/18 19:12 36.5 C 76 22 145/82 H 91 06/16/18 19:09 82 14 96 06/16/18 18:00 36.7 C 79 16 123/77 96 06/16/18 16:00 37.0 C 82 16 142/83 H 95 06/16/18 15:20 83 16 96 06/16/18 13:38 82 18 138/77 94 06/16/18 12:46 79 18 153/89 H 93 06/16/18 11:40 36.7 C 76 17 150/88 H 94 06/16/18 11:23 80 16 98 06/16/18 11:08 36.5 C 79 18 152/89 H 93 06/16/18 10:40 36.4 C L 78 16 138/86 97 97 06/16/18 10:15 36.8 C 77 22 131/83 99 06/16/18 10:05 78 19 139/89 99 06/16/18 09:55 76 13 146/97 H 99 06/16/18 09:45 78 17 144/83 H 100 06/16/18 09:35 78 17 162/105 H 100 06/16/18 09:25 83 17 161/107 H 100 06/16/18 09:15 87 11 L 157/100 H 90 06/16/18 09:08 37 C 88 18 174/96 H 94 Pain Intensity Medial Back: Pain Intensity: 3 Anterior Neck: Pain Intensity: 8 Notes Mental Status: alert / awake / arousable and participated in evaluation Nausea / Vomiting: adequately controlled Pain: adequately controlled Airway Patency, RR, SpO2: stable & adequate BP & HR: stable & adequate Hydration State: stable & adequate Anesthetic Complications: no major complications apparent
[2018-06-17] MEDS: INSULIN ASPART 100 UNITS/ML 3 ML PEN SC SCH (08:16)
[2018-06-17] MEDS: CLINDAMYCIN 600 MG in DEXTROSE 5% 50 ML IV SCH (08:20)
[2018-06-17] MEDS: DOCUSATE SODIUM 100 MG CAP PO SCH (08:21)
[2018-06-17] MEDS ORDERED: MoRPHine SULFATE CR 15 MG TABCR PO SCH (09:15)
--- NOTE | 2018-06-17 09:21 | Discharge Summary ---
Date of Service June 17, 2018 Admission HPI Per Admitting Provider This is a 68-year-old male well-known to me that presents with chronic persistent neck and arm pain. After failing extensive course of nonoperative care is here for surgical intervention. Principal Diagnosis Cervical spinal stenosis with radiculopathy Discharge Data Allergies Allergy/AdvReac Type Severity Reaction Status Date / Time mold Allergy Mild NASAL Verified 06/16/18 06:07 CONGESTION,DIFFICULTY BREATHING Penicillins Allergy Mild CHILD Verified 06/16/18 06:07 RASH HIVES Dust Allergy Intermediate receives Uncoded 06/16/18 06:07 allergy shots-NASAL CONGESTION,DIFFICULTY BREATHING Procedures Performed Operation Date: 06/16/18 07:45 Actual Procedures p C5-C6 Anterior Cervical Discectomy and Fusion(Not Applicable) - Sanchez Blank DO Ordered Studies 06/16/18 07:45 FL cervical 2-3V Routine FL fluoroscopy <1hr Routine Hospital Course (1) Cervical stenosis of spinal canal: Patient underwent anterior cervical discectomy and fusion tolerated this well was taken to orthopedic floor postoperative. Postop day #1 he was swallowing well. No hoarseness. Neck pain controlled. Subsequently was discharged home. Discharge orders and instructions found in the chart for further review. Total Time Total Time Spent Total Time Spent (In Minutes): Not applicable Discharge Plan Discharge Items Patient Disposition: Home - Self-Care Reason For Visit: CERVICAL SPINAL STENOSIS Discharge Diagnosis: cervical stenosis Discharge Goals: Decrease discomfort Activity: Per 'Additional Instructions' section Non-emergency contact: Primary Care Provider Call non-emergency contact if: you have any medication questions Follow-up/Referrals: Ilia Gonzalez MD [Primary Care Provider] - Diet: Regular Addtl Provider Instructions: ACTIVITY RECOMMENDATIONS: SELF CARE INSTRUCTIONS AFTER CERVICAL FUSIONS 1. No smoking. Smoking drastically decreases the chance of a solid fusion. 2. No bending, lifting more than 5 pounds, or twisting (roll like a log when turning in bed). 3. You may shower 3 days after surgery. Thoroughly dry wound. Do not soak in the tub. 4. Cervical collar: Must be worn at all times including sleeping. You may remove the brace only to bath, eat and if you are sitting in a recliner. 5. Please walk as much as you can for exercise. Gradually increase the distance that you walk as your endurance increases. SPECIAL CARE INSTRUCTIONS: VERY IMPORTANT TO READ AND REVIEW A. Do not take any anti-inflammatory medications (i.e. Indocin, Advil, Aspirin, Naprosyn, Aleve, Motrin, etc.) as these may inhibit the chance of a solid fusion. Tylenol is okay to take. B. Your surgical incision has been closed with a cosmetic suture under the skin that will dissolve in about 6 weeks. In 14 days, you can use a pair of clean scissors and cut the suture that is left outside of the skin at the ends of your incision. C. Complications are uncommon, but please contact us if you have any signs or symptoms of: 1. wound infection (fever higher than 102.5 degrees F, redness, separation of wound, drainage, or increasing pain from the incision) 2. blood clots in legs (pain, swelling, redness and warmth in legs) 3. urinary tract infection (fever higher than 102.5 degrees, burning upon urination or increased frequency of urination) 4. nerve problems (inability to walk on your toes or heels, numbness, loss of bowel or bladder control) 5. any other symptoms that concern you. D. Please call the office at if you have any concerns or questions about your operation or recovery. MANAGING PAIN AFTER SPINAL SURGERY 1. Narcotic medication is intended for short-term use and will be provided for surgical pain. Surgical pain usually lasts for a period of 4-6 weeks. Narcotic medication includes Percocet, Vicodin, Darvocet, Tylenol #3 or Lortab. 2. Longer-term pain is more appropriately treated with non-narcotic medication such as Tylenol ES. 3. Muscle spasm is not appropriately treated with narcotics. Muscle relaxers such as Soma, Flexeril or Skelaxin can be used along with Tylenol ES. 4. Remember that we all live with some "aches and pains". This is not unusual or uncommon after an injury or as we get older. 5. We will provide appropriate medication within the normal guidelines of their prescribed use. We will also be very cautious and aware of potential abuse and extended duration of patients' medication needs. 6. Please allow 2-3 days to process refills. Prescriptions will not be mailed but must be picked up at the office. FOLLOW UP VISIT: Keep your scheduled follow-up appointment. Any questions, please call the office at . Prescriptions: New oxycodone 5 mg Tablet 5 mg PO Q4H PRN (Reason: Pain) Qty: 20 RF: 0 morphine 15 mg Tablet Extended Release 15 mg PO Q12H Qty: 14 RF: 0 Continue oxycodone [OxyContin] 10 mg Tablet,Oral Only,Ext.Rel.12 Hr 10 mg PO PRN (Reason: Pain) RF: 0 multivitamin Tablet 1 tab PO HS RF: 0 metformin 500 mg Tablet 500 mg PO HS RF: 0 lisinopril [Zestril] 20 mg tablet 20 mg PO HS RF: 0 paroxetine HCl [Paxil] 20 mg tablet 60 mg PO HS RF: 0 pravastatin [Pravachol] 20 mg tablet 20 mg PO HS RF: 0 paroxetine HCl [Paxil] 40 mg tablet 40 mg PO HS RF: 0 diazepam [Valium] 5 mg tablet 5 mg PO HS RF: 0 glucosamine-chondroitin 250-200 mg Tablet 1 tab PO HS RF: 0 omega 7-zcy-zhb-fish oil [Fish Oil] 1,000 mg (120 mg-180 mg) Capsule 1 cap PO HS RF: 0 Discontinued meloxicam 15 mg tablet 15 mg PO HS RF: 0 Stand-Alone Forms: [facility] Discharge Orders: Discharge Order (Routine); Ordered 06/17/18 Ordered By: Sanchez Blank Admission Data Admit Date/Time: 06/16/18 09:05 Attending Provider: Sanchez Blank Admit Provider: Sanchez Blank Primary Care Provider: Ilia Gonzalez Service: Surgical Services
[2018-06-17 09:58] LABS: Est GFR (African American) 45.1; Est GFR (Non-African American) 38.9
[2018-06-18] MEDS ORDERED: BISACODYL 5 MG TABEC PO PRN (09:04)
== END 2018-06-17 12:48 | disposition home or self-care (01) ==
LOC: 3E 05:48 → ASU 05:48

== ENCOUNTER 2019-03-10 08:22 | Inpatient (IN) ==
--- NOTE | 2019-02-25 13:06 | PAT Medication Instructions ---
Medication Instructions Date of Service February 25, 2019 Home Medications diazepam [Valium] 5 mg PO BID lisinopril [Zestril] 20 mg PO HS metformin 500 mg PO HS multivitamin 1 tab PO HS omega 7-yks-tkw-fish oil [Fish Oil] 1 cap PO HS paroxetine HCl [Paxil] 60 mg PO HS pravastatin [Pravachol] 40 mg PO HS oxycodone-acetaminophen 1 tab PO QID PRN oxycodone 5 mg PO QID PRN STOP taking 2 weeks before surgery (or as soon as possible if surgery is within 2 weeks) omega 5-dsc-zxe-fish oil [Fish Oil] 1 cap PO HS Take morning of surgery With a small sip of water, OTHERWISE NOTHING TO EAT OR DRINK AFTER MIDNIGHT: diazepam [Valium] 5 mg PO BID oxycodone-acetaminophen 1 tab PO QID PRN (okay to take up to 4 hours prior to surgery if needed) oxycodone 5 mg PO QID PRN (okay to take up to 4 hours prior to surgery if needed) Take evening before surgery diazepam [Valium] 5 mg PO BID lisinopril [Zestril] 20 mg PO HS metformin 500 mg PO HS multivitamin 1 tab PO HS paroxetine HCl [Paxil] 60 mg PO HS pravastatin [Pravachol] 40 mg PO HS oxycodone-acetaminophen 1 tab PO QID PRN (if needed) oxycodone 5 mg PO QID PRN (if needed) Other Notes If you have any questions please call us at [phone] or [phone] or [phone] or [phone]
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
[2019-02-26 12:13] LABS: Basophils # (auto) 0.03 K/uL (0-0.2); Basophils % (auto) 0.4 %; Eosinophils # (auto) 0.33 K/uL (0-0.5); Eosinophils % (auto) 4.6 %; Hematocrit (blood only) 37.1 % (42-52); Hemoglobin 12.8 g/dL (14.0-18.0); Immature Granulocytes # (auto) 0.02 K/uL (0.00-0.02); Immature Granulocytes % (auto) 0.3 %; Lymphocytes % (auto) 29.4 %; Mean Corpuscular Hemoglobin 33.7 pg (25-34); Mean Corpuscular Hgb Conc 34.5 g/dL (32-36); Mean Corpuscular Volume 97.6 fL (80-100); Mean Platelet Volume 8.9 fL (7.4-10.4); Monocytes # (auto) 0.84 K/uL (0.11-0.59); Monocytes % (auto) 11.7 %; Neutrophils # (auto) 3.83 K/uL (1.4-6.5); Neutrophils % (auto) 53.6 %; Platelet Count 319 K/uL (130-400); RDW Standard Deviation 49.5 fL (36.4-46.3); White Blood Count 7.15 K/uL (4.8-10.8)
[2019-02-26 12:18] LABS: Appearance Urine Clear (Clear); Bilirubin Urine Negative (Negative); Blood Urine Negative (Negative); Color Urine Yellow; Glucose Urine UA Negative (Negative); Ketones Urine Negative (Negative); Leukocyte Esterase Urine Negative (Negative); Nitrite Urine Negative (Negative); Protein Urine Negative (Negative); Specific Gravity Urine 1.019 (1.000-1.030); Urobilinogen Urine Negative (Negative)
[2019-02-26 12:21] LABS: Estimated Average Glucose 108 mg/dl; Hemoglobin A1C 5.4 % (4.5-5.6)
[2019-02-26 12:26] LABS: Partial Thromboplastin Ratio 0.9; Partial Thromboplastin Time 24.5 Seconds (21.0-31.0); Prothrombin Time 10.4 Seconds (9.0-12.0)
[~2019-03-10 08:22] MED LIST changes: +ACETAMINOPHEN 500 MG TAB PO SCH; +CLINDAMYCIN 600 MG/54 ML BAG IV SCH; +CeleBREX 200 MG CAP PO SCH; +GABAPENTIN 300 MG CAP PO SCH; -LISI-726 PO; +LR 15ML/HR IV SCH; -METF-384 PO; -MRPSR15 PO; -MULT-506 PO; -OMEG10007 PO; -PARO1TAB27 PO; -PRVC/20 PO; -PRX/40 PO; -RXC5 PO; -SILD1TAB31 PO; -VLM5CL PO
[2019-03-10] MEDS ORDERED: ROCURONIUM BROMIDE 10 MG/ML 5 ML VIAL ONE ×2 (09:05→11:05)
[2019-03-10] MEDS ORDERED: ONDANSETRON INJ 2 MG/ML 2 ML VIAL ONE (09:05)
[2019-03-10] MEDS ORDERED: PROPOFOL IV EMULSION 10 MG/ML 20 ML VIAL IV ONE (09:05)
[2019-03-10] MEDS ORDERED: fentaNYL citrate 100 MCG/2 ML VIAL ONE (09:05)
[2019-03-10] MEDS ORDERED: MIDAZOLAM HCL 1 MG/ML 2ML VIAL ONE (09:05)
[2019-03-10] MEDS ORDERED: DEXAMETHASONE SOD INJ 4 MG/ML VIAL ONE (09:05)
[2019-03-10] MEDS ORDERED: LIDOCAINE HCL 2% 2 ML VIAL/AMP(20MG/ML) INFIL ONE (09:05)
--- NOTE | 2019-03-10 09:37 | History & Physical Bridge Note ---
Date of Service March 10, 2019 History & Physical Bridge Note I have examined the patient, reviewed the History & Physical and in the interval since the performance of the History & Physical I have noted the following changes of clinical significance: no changes noted
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
[2019-03-10] MEDS ORDERED: ATROPINE SULFATE 0.1 MG/ML 10ML SYR IV PRN (09:48)
[2019-03-10] MEDS ORDERED: HYDROmorphone INJ 1 MG/ML SYRINGE IV PRN (09:48)
[2019-03-10] MEDS ORDERED: LABETALOL HCL IV 5 MG/ML 20ML IV PRN (09:48)
[2019-03-10] MEDS ORDERED: ONDANSETRON INJ 2 MG/ML 2 ML VIAL IV PRN ×2 (09:48→14:18)
[2019-03-10] MEDS ORDERED: BACITRACIN INJ 50,000 UNIT VIAL ONE (09:49)
[2019-03-10] MEDS ORDERED: BUPIVACAINE 0.5 % 5 MG/1 ML MPF 30ML VIAL ONE (09:52)
[2019-03-10] MEDS ORDERED: EPINEPHrine INJ 1 MG/ML AMP ONE (09:52)
[2019-03-10] MEDS ORDERED: HYDROmorphone INJ 2 MG/ML SYR/VIAL ONE (10:29)
[2019-03-10] MEDS ORDERED: BUPIVACAINE 0.5 % 5 MG/1 ML MPF 30ML VIAL INFIL ONE (10:44)
[2019-03-10] MEDS ORDERED: EPINEPHrine INJ 1 MG/ML AMP INJ STA (10:45)
[2019-03-10] MEDS ORDERED: PHENYLEPHRINE 100MCG/ML 5ML SYR ONE (10:59)
[2019-03-10] MEDS ORDERED: ePHEDrine sulfate 50 MG/ML SYR ONE (10:59)
[2019-03-10] MEDS ORDERED: KETAMINE HCL INJ 50 MG/ML 10 ML VIAL ONE (11:50)
[2019-03-10] MEDS ORDERED: GLYCOPYRROLATE 0.2 MG/ML VIAL ONE (12:34)
[2019-03-10] MEDS ORDERED: NEOSTIGMINE METHYLSULFATE 1 MG/ML 10ML VIAL ONE (12:34)
--- NOTE | 2019-03-10 12:47 | Operative Report ---
Post Operative Report Pre & Post Diagnosis Operation Date: 03/10/19 10:05 Pre-Op Diagnosis: Lumbar spinal stenosis with neurogenic claudication. Herniated nucleus pulposus L1-2. Post-Op Diagnosis: Same I identified the patient and participated in the time-out.: Yes Procedure Operation Date: 03/10/19 10:05 Actual Procedures #1 removal of posterior instrumentation L2. #2 expiration of fusion L2-3. #3 lumbar decompression with bilateral medial facetectomies and foraminotomies T12- L1 L1-L2. #4 posterior spinal fusion T10-L2. #5 placement posterior segmental instrumentation T11-L2. #6 interbody fusion L1-2. #7 placement of peek cage 9 x 26 mm at L1-2. #8 placement of locally harvested morselized autograft in the posterior lateral gutters. #9 placement infuse collagen sponge master graft in the posterior lateral gutters and ostial amp and interbody space. Surgeon Sanchez Blank, DO Manager Concrete None Estimated Blood Loss 200 Findings Consistent with Post-Op Diagnosis Specimens None Indications This is a 68-year-old male known to me that presents with above-mentioned diagnosis after having marked decline in status would like to undergo the above- mentioned procedure in urgent basis. Description of Procedure Patient was met with identified and informed consent obtained. Patient was then taken to the operative suite underwent intubation placed in a prone position the Иван table on top of the Jabari frame. All bony prominences well-padded eyes inspected to ensure no external pressure placed upon the peer at this point the thoracolumbar spine was prepped and draped in normal sterile fashion. Sharp dissection with the assistance of Bovie electrocautery was performed down to and exposing the lamina and transverse processes of T10-T11 T12-L1 and instrumentation at L2. I then proceed remove the connector and pedicle screw at L2 as well as the barrel connector connected to the proximal aspect of the pre- existing rods. I then performed a complete laminectomy of L1 partial laminectomy of L2 including bilateral medial facetectomies and foraminotomies ad dressing severe stenosis. This also included addressing the massive disc herniation at L1-2 level with caudal migration. After this complete pedicle screws were placed in T11 T12-L1 and L2 bilaterally. And by way of a transforaminal approach on the right a complete discectomy of L1-L2 was performed endplates curetted to subcortical being bone and a 9 x 26 mm peek cage filled with ostium bone graft tapped in position. Appropriate size rods were then placed and connected and locked in final position. The transverse processes of T10-T11 T12-L1 and L2 burred to subcortical bleeding bone. Infuse collagen sponge master graft and local graft was placed the posterior gutters. 15 round TEJAS drain inserted. The incision was then closed with 1 Vicryl in the fascia 2-0 Vicryl substantially and 4-0 Monocryl for final skin closure. Steri- Strip sterile dressing placed. Patient awakened taken to PACU stable condition. Please note spinal cord monitoring was utilized that the procedure no changes noted. I attest to the content of the Intraoperative Record and any orders documented therein. Any exceptions are noted below.
--- NOTE | 2019-03-10 13:01 | Fluoroscopy Report ---
FL lumbar spine 2-3V CLINICAL HISTORY: 68 years-old Male presenting with T11-L2 decompression and fusion. TECHNIQUE: 2 fluoroscopic image(s) recorded as part of an intraoperative procedure. COMPARISON: CT from 02/06/2019. FINDINGS/IMPRESSION: Post surgical changes of posterior bilateral transpedicular screw and sherry fixation, which now extends to the T11 level. Previously hardware extending to the level of L2. Laminectomy defects noted in the lumbar spine. An interbody spacer is now in place at L1-2. Prior interbody spacer noted at L2-3. Mil d wedging deformity of L1 is similar to prior CT. Please see surgical report for further details. Fluoroscopy dosage (mGy): 15.85. Fluoroscopy time: 24.2 seconds. Number or time of high level fluoroscopy (HLF), digital spot, or digital subtraction images: 0. Electronically signed by: Gerry Holm M.D. 03/10/2019 1:00 PM
[2019-03-10] MEDS: HYDROmorphone INJ 1 MG/ML SYRINGE IV PRN ×6 (13:12→20:38)
--- NOTE | 2019-03-10 13:40 | Anesthesiology Progress Note ---
Date of Service March 10, 2019 Anesthesia Post Procedure Vital Signs Vital Signs: Temp Pulse Pulse Resp BP Pulse Ox 03/10/19 13:30 83 16 105/71 97 03/10/19 13:20 82 20 116/75 99 03/10/19 13:10 77 20 114/67 99 03/10/19 13:00 80 20 109/72 99 03/10/19 12:51 36.8 C 86 20 149/86 H 99 03/10/19 08:54 37 C 87 20 134/91 97 Pain Intensity Lower Back: Pain Intensity: 6 Transfer of Care Handoff Completed per policy Notes Mental Status: alert / awake / arousable Patient Amnestic to Procedure: Yes Nausea / Vomiting: adequately controlled Pain: adequately controlled Airway Patency, RR, SpO2: stable & adequate BP & HR: stable & adequate Hydration State: stable & adequate Anesthetic Complications: no major complications apparent
[2019-03-10] MEDS ORDERED: METOCLOPRAMIDE HCL INJ 5 MG/ML 2 ML VIAL IV PRN (14:18)
[2019-03-10] MEDS ORDERED: FAMOTIDINE 20 MG TAB PO PRN (14:18)
[2019-03-10] MEDS ORDERED: TRAMADOL HCL 50 MG TABLET PO PRN (14:18)
[2019-03-10] MEDS ORDERED: HYDROmorphone INJ 0.5 MG/0.5 ML SYR IV PRN (14:18)
[2019-03-10] MEDS ORDERED: ONDANSETRON 4 MG OD TAB PO PRN (14:18)
[2019-03-10] MEDS ORDERED: PROMETHAZINE HCL 12.5 MG in SODIUM CHLORIDE 0.9% 50 ML IV PRN (14:18)
[2019-03-10] MEDS ORDERED: ACETAMINOPHEN 1,000 MG/100 ML VIAL IV PRN (14:18)
[2019-03-10] MEDS ORDERED: DO NOT ADMINISTER FLU VACCINE PRN (14:18)
[2019-03-10] MEDS ORDERED: LORazepam 0.5 MG TAB PO PRN (14:18)
[2019-03-10] MEDS ORDERED: SOD PHOSPHATE/SOD BIPHOSPHATE ENEMA 132 ML BTL PR PRN (14:18)
[2019-03-10] MEDS ORDERED: BISACODYL 10 MG SUPP PR PRN (14:18)
[2019-03-10] MEDS ORDERED: NALOXONE HCL 0.4 MG/1 ML VIAL/CARP IV PRN (14:18)
[2019-03-10] MEDS ORDERED: LORazepam 0.5 MG/1 ML VIAL IV PRN (14:18)
[2019-03-10] MEDS ORDERED: ALUMINUM/MAGNESIUM SUSP 30 ML UDC PO PRN (14:18)
[2019-03-10] MEDS ORDERED: DO NOT ADMINISTER PNEUMOCOCCAL VACCINE PRN (14:18)
[2019-03-10] MEDS: OXYCODONE HCL IR 5 MG TAB (IMMEDIATE RELEASE) PO PRN ×3 (14:52→23:33)
[2019-03-10] MEDS: KETOROLAC TROMETHAMINE 15 MG/ML VIAL IV SCH ×2 (14:56→20:41)
[2019-03-10] MEDS: SODIUM CHLORIDE 0.9% 1000ML 1,000 ML IV SCH ×2 (16:05→23:31)
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
[2019-03-10] MEDS ORDERED: LORazepam 1 MG TAB PO PRN (17:12)
[2019-03-10] MEDS: THIAMINE HCL 100 MG TAB PO SCH (19:31)
[2019-03-10] MEDS: CLINDAMYCIN 600 MG in DEXTROSE 5% 50 ML IV SCH (19:31)
[2019-03-10] MEDS: PRAVASTATIN SOD 20 MG TAB PO SCH (20:40)
[2019-03-10] MEDS: DOCUSATE SODIUM/SENNA 50/8.6MG TAB PO SCH (20:40)
[2019-03-10] MEDS: OMEGA-3 (PURIFIED FISH OIL) 1 GM CAP PO SCH (20:40)
[2019-03-10] MEDS: PARoxetine HCl 20 MG TAB PO SCH (20:40)
[2019-03-10] MEDS ORDERED: MULTIVITAMIN TAB PO SCH (21:00)
[2019-03-10] MEDS ORDERED: LISINOPRIL 20 MG TAB PO SCH (21:00)
[2019-03-10] MEDS: diazePAM 5 MG TABLET PO SCH (21:11)
[2019-03-10] MEDS: INSULIN ASPART 100 UNITS/ML 3 ML PEN SC SCH (23:27)
[2019-03-11] MEDS: HYDROmorphone INJ 1 MG/ML SYRINGE IV PRN ×7 (00:30→23:46)
[2019-03-11] MEDS: CLINDAMYCIN 600 MG in DEXTROSE 5% 50 ML IV SCH (03:13)
[2019-03-11] MEDS: KETOROLAC TROMETHAMINE 15 MG/ML VIAL IV SCH ×2 (03:13→09:16)
[2019-03-11] MEDS: OXYCODONE HCL IR 5 MG TAB (IMMEDIATE RELEASE) PO PRN ×4 (03:42→19:07)
[2019-03-11] MEDS: SODIUM CHLORIDE 0.9% 1000ML 1,000 ML IV SCH (04:54)
[2019-03-11] MEDS: POLYETHYLENE (MIRALAX) 17 GM PACK PO SCH ×4 (05:10→23:46)
[2019-03-11 05:29] LABS: Eosinophils # (auto) 0.01 K/uL (0-0.5); Eosinophils % (auto) 0.1 %; Hemoglobin 11.3 g/dL (14.0-18.0); Immature Granulocytes # (auto) 0.04 K/uL (0.00-0.02); Immature Granulocytes % (auto) 0.3 %; Lymphocytes # (auto) 1.58 K/uL (1.2-3.4); Lymphocytes % (auto) 13.2 %; Mean Corpuscular Hemoglobin 32.9 pg (25-34); Mean Corpuscular Hgb Conc 33.2 g/dL (32-36); Mean Corpuscular Volume 99.1 fL (80-100); Mean Platelet Volume 9.1 fL (7.4-10.4); Monocytes # (auto) 0.91 K/uL (0.11-0.59); Monocytes % (auto) 7.6 %; Neutrophils # (auto) 9.43 K/uL (1.4-6.5); Neutrophils % (auto) 78.8 %; Platelet Count 229 K/uL (130-400); RDW Coefficient of Variation 13.5 % (11.5-14.5); RDW Standard Deviation 48.7 fL (36.4-46.3); Red Blood Count 3.43 M/uL (4.7-6.1); White Blood Count 11.97 K/uL (4.8-10.8)
[2019-03-11 05:58] LABS: BUN Creatinine Ratio 18.9 (10-20); Calcium 8.1 mg/dl (8.5-10.1); Creatinine Clr Calc Pharmacy 53.2 ml/min; Est GFR (African American) 55.4; Est GFR (Non-African American) 47.8; Magnesium 1.6 mg/dl (1.8-2.4); Potassium 4.6 mmol/L (3.5-5.1)
[2019-03-11] MEDS: ACETAMINOPHEN 500 MG TAB PO PRN (07:26)
[2019-03-11] MEDS ORDERED: Nursing to Pharmacy Communication ONE (08:18)
[2019-03-11] MEDS: INSULIN ASPART 100 UNITS/ML 3 ML PEN SC SCH ×4 (09:11→21:57)
[2019-03-11] MEDS: diazePAM 5 MG TABLET PO SCH ×2 (09:16→20:24)
[2019-03-11] MEDS: CEROVITE ADV FORMULA TAB PO SCH (09:16)
[2019-03-11] MEDS: FOLIC ACID 1 MG TAB PO SCH (09:16)
[2019-03-11] MEDS: MAGNESIUM SULFATE / D5W 1 GM/100 ML BAG IV SCH ×2 (09:28→10:38)
[2019-03-11] MEDS: THIAMINE HCL 100 MG TAB PO SCH ×2 (09:55→10:56)
--- NOTE | 2019-03-11 11:51 | Orthopedic Progress Note ---
Date of Service March 11, 2019 Assessment & Plan (1) Spinal stenosis, lumbar region with neurogenic claudication: This time we will continue physical therapy monitor his TEJAS output hopefully discharge home in the next few days. Present on Admission?: Yes Subjective Back pain is controlled leg pain improved. Physical Exam Physical Exam: On exam patient is in the chair at the bedside. Is good strength testing. Appears comfortable. Results & Data Vital Signs (Past 12 Hours) Vital Signs Temp Pulse Pulse Resp BP BP Pulse Ox 03/11/19 07:44 36.4 C L 65 11 L 115/70 99 03/11/19 03:15 36.8 C 68 16 114/72 98
--- NOTE | 2019-03-11 17:24 | Hospitalist Progress Note ---
Date of Service March 11, 2019 Assessment & Plan (1) Acute blood loss anemia: mild - pre-op Hb 12.8, now 11.3. repeat CBC in am for stability. may need iron supplementation depending if there are further decreases in H/H. acute blood loss is 2nd to surgery. (2) Hypomagnesemia: replace w/ 2 grams mag sulfate IV x 1. repeat mag level am. likely due to chronic etoh dependence. (3) Status post lumbar surgery: POD #1 -- s/p lumbar decompression-fusion procedure by Dr Blank. Defer pain management, fluids, DVT proph to Dr Blank. He has chronic opiate dependence and thus he has tolerance. May need adjustments in normal oxycodone regimen given that tolerance. (4) CKD (chronic kidney disease): stage 3, with baseline Cr of 1.5-1.6. Cr 1.5 today and stable. cont to hold RAPHAEL given the low-normal BPs. (5) 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, type 2: most recent HbA1C was quite low (5.4%). even despite perioperative steroids his glycemic control is excellent. cont novolog sliding scale prn. Hold metformin. (6) Hypertension: BPs are low or low-normal post-op. cont to HOLD RAPHAEL. creatinine is stable. (7) Chronic pain syndrome: See discussion above in "lumbar back surgery." Defer pain management to primary team. (8) Chronic use of benzodiazepine for therapeutic purpose: Continue valium BID. (9) Depression: Cont home meds including paxil 60mg daily. Cont valium. (10) Anxiety: Valium BID. (11) Hyperlipidemia: Cont statin agent. (12) Chest pain: PRIOR TO THE HOSPITAL STAY (SEVERAL MONTHS PRIOR). Had 2-3 episodes over the last few months at home - nonexertional, no radiation to the arms/neck/back, resolved on own. No recent stress test. Pre-op EKG wnl. Again no chest pain overnight. Multiple CAD risk factors. Recommended he discuss with his PCP an outpatient stress test down the line once recovered from surgery. (13) Tremor: Consider neurology referral after d/c. familial/benign essential?? intermittent - due to anxiety? other? (14) Alcohol dependence: MVI, thiamine, folic acid supplementation. Replace low mag. At risk of withdrawal - however, has never had withdrawal in a hospital setting in the past. And continues to display no signs of withdrawal this admission. Cont alcohol withdrawal precautions. Ativan prn per protocol. (15) DVT prophylaxis: SCDS/TEDs Subjective patient had significant pain overnight. having to use IV dilaudid to stay ahead of pain. oxycodone ineffective at current doses. just started passing flatus this afternoon. eating ok. ambulated today. no shakes; no withdrawal symptoms. Review of Systems Respiratory: no cough, no dyspnea and no dyspnea on exertion Cardiovascular: no chest pain Gastrointestinal: no abdominal pain, no nausea and no vomiting Physical Exam Constitutional: well developed and well nourished; no acute distress sitting in chair comfortably ENMT: external ear and nose normal, oropharynx normal Respiratory: normal respiratory effort, lungs clear to auscultation Cardiovascular: Rate/Rhythm: regular rate and regular rhythm Heart Sounds: normal S1 and normal S2; no murmur Vessels: posterior tibial pulses present and dorsalis pedis pulses present; no JVD Extremities: no edema Gastrointestinal (Abdomen): normal bowel sounds, soft, nontender, no hepatosplenomegaly Neurologic: moves all extremities; no focal motor deficits (strength 5/5 both legs) Motor/Sensory: no tremor Psychiatric: Orientation: alert and oriented x 3 Affect: no anxious affect and no flat affect Results & Data Vital Signs (Past 12 Hours) Vital Signs Temp Pulse Pulse Resp BP Pulse Ox 03/11/19 15:14 36.7 C 73 17 115/72 96 03/11/19 12:00 36.9 C 74 11 L 116/68 96 03/11/19 07:44 36.4 C L 65 11 L 115/70 99 Laboratory Results Laboratory Results - last 24 hr 03/11/19 03/11/19 03/11/19 09:00 12:07 17:21 POC Glucose 123 H 102 H 106 H 03/11/19 20:39 POC Glucose 100 H Hb 11.3 Cr 1.5 mag 1.6 PG Care Time/CCT Total # of Minutes Spent Total Time Spent with Patient: Total time spent is greater than 50% in coordination of care (as documented) at patient's floor/unit and/or counseling patient: (1) CKD (chronic kidney disease) Chronic kidney disease stage: stage 3 (moderate) Qualified Code(s): N18.3 - Chronic kidney disease, stage 3 (moderate) (2) 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, 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 complication status: without complication Qualified Code(s): E11.9 - Type 2 diabetes mellitus without complications (3) Hypertension Hypertension type: essential hypertension Qualified Code(s): I10 - Essential (primary) hypertension (4) Depression Depression Type: other depression Qualified Code(s): F32.89 - Other specified depressive episodes (5) Hyperlipidemia Hyperlipidemia type: mixed hyperlipidemia Qualified Code(s): E78.2 - Mixed hyperlipidemia (6) Chest pain Chest pain type: unspecified Qualified Code(s): R07.9 - Chest pain, unspecified (7) Alcohol dependence Substance use status: uncomplicated Qualified Code(s): F10.20 - Alcohol dependence, uncomplicated
[2019-03-11] MEDS: DOCUSATE SODIUM/SENNA 50/8.6MG TAB PO SCH (20:21)
[2019-03-11] MEDS: PRAVASTATIN SOD 20 MG TAB PO SCH (20:22)
[2019-03-11] MEDS: PARoxetine HCl 20 MG TAB PO SCH (20:22)
[2019-03-11] MEDS: OMEGA-3 (PURIFIED FISH OIL) 1 GM CAP PO SCH (20:22)
[2019-03-12] MEDS: HYDROmorphone INJ 1 MG/ML SYRINGE IV PRN ×6 (02:57→22:30)
[2019-03-12] MEDS: POLYETHYLENE (MIRALAX) 17 GM PACK PO SCH ×4 (05:55→23:52)
[2019-03-12 06:48] LABS: Hematocrit (blood only) 33.2 % (42-52); Hemoglobin 11.5 g/dL (14.0-18.0); Mean Corpuscular Hemoglobin 33.6 pg (25-34); Mean Corpuscular Hgb Conc 34.6 g/dL (32-36); Mean Corpuscular Volume 97.1 fL (80-100); Mean Platelet Volume 9.2 fL (7.4-10.4); Platelet Count 263 K/uL (130-400); RDW Coefficient of Variation 13.3 % (11.5-14.5); RDW Standard Deviation 46.7 fL (36.4-46.3); Red Blood Count 3.42 M/uL (4.7-6.1); White Blood Count 11.85 K/uL (4.8-10.8)
[2019-03-12] MEDS: INSULIN ASPART 100 UNITS/ML 3 ML PEN SC SCH ×4 (06:58→21:38)
[2019-03-12 07:21] LABS: BUN Creatinine Ratio 18.6 (10-20); Calcium 8.8 mg/dl (8.5-10.1); Creatinine Clr Calc Pharmacy 54.3 ml/min; Est GFR (African American) 56.8; Magnesium 1.8 mg/dl (1.8-2.4); Potassium 4.4 mmol/L (3.5-5.1)
--- NOTE | 2019-03-12 07:36 | Orthopedic Progress Note ---
Date of Service March 12, 2019 Assessment & Plan (1) Spinal stenosis, lumbar region with neurogenic claudication: At this time would like to add MS Contin to his pain regimen. He has had a history of narcotic use were hoping sustained relief will provide better pain control. TEJAS drain is still significant we will maintain in place. We will continue to advance his bowel regimen. Present on Admission?: Yes Subjective Patient's complaining mostly of back pain today. He and his leg symptoms are markedly improved. He is tolerating ambulation relatively well. No bowel movement at this time. Physical Exam Physical Exam: Physical exam is in the chair at the bedside is good strength testing. Is able to stand and ambulate reasonably well. Results & Data Vital Signs (Past 12 Hours) Vital Signs Temp Pulse Resp BP BP Pulse Ox 03/12/19 06:15 37.2 C 86 15 103/65 98 03/12/19 02:20 37.4 C 91 H 15 89/49 L 100/65 96 03/11/19 23:09 36.9 C 78 15 123/79 100
[2019-03-12] MEDS: THIAMINE HCL 100 MG TAB PO SCH (08:27)
[2019-03-12] MEDS: CEROVITE ADV FORMULA TAB PO SCH (08:27)
[2019-03-12] MEDS: diazePAM 5 MG TABLET PO SCH ×2 (08:27→20:20)
[2019-03-12] MEDS: FOLIC ACID 1 MG TAB PO SCH (08:27)
[2019-03-12] MEDS: MoRPHine SULFATE CR 15 MG TABCR PO SCH ×2 (08:27→20:20)
[2019-03-12] MEDS: OXYCODONE HCL IR 5 MG TAB (IMMEDIATE RELEASE) PO PRN ×3 (12:08→23:52)
--- NOTE | 2019-03-12 18:10 | Hospitalist Progress Note ---
Date of Service March 12, 2019 Assessment & Plan (1) Hyponatremia: Yesterday was 134; now 132. Patient appears euvolemic. Not on diuretics. Creatinine is at baseline. Etiology? SIADH? Recheck serum Na now along with serum osm and uric acid. Check urine Na and urine osm. Then re-eval. If suspicion of SIADH then fluid restrict and add salt tab daily. BMP am. (2) Acute blood loss anemia: mild. repeat CBC today without further Hb drop. acute blood loss is 2nd to surgery. would not add iron supplementation at this time as it will make his constipation worse. (3) Hypomagnesemia: replaced and resolved; level 1.8 this am. (4) Status post lumbar surgery: POD #2-- s/p lumbar decompression-fusion procedure by Dr Blank. He has chronic opiate dependence and thus he has tolerance to such. Agree w/ addition of long-acting pain medications. Hopefully this will allow us to wean him off IV dilaudid. (5) CKD (chronic kidney disease): stage 3, with baseline Cr of 1.5-1.6. Cr 1.4 today. cont to hold RAPHAEL given the low-normal BPs. (6) 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, type 2: glycemic control remains excellent. cont novolog sliding scale prn. cont to hold metformin. (7) Hypertension: BPs are low or controlled post-op. cont to HOLD RAPHAEL. (8) Chronic pain syndrome: See discussion above in "lumbar back surgery." Defer pain management to primary team. Agree w/ addition of ms-contin. (9) Chronic use of benzodiazepine for therapeutic purpose: Continue valium BID. (10) Depression: Cont home meds including paxil 60mg daily. (11) Anxiety: Valium BID. (12) Hyperlipidemia: Cont statin agent. (13) Chest pain: PRIOR TO THE HOSPITAL STAY (SEVERAL MONTHS PRIOR). Had 2-3 episodes over the last few months at home - nonexertional, no radiation to the arms/neck/back, resolved on own. No recent stress test. Pre-op EKG wnl. Multiple CAD risk factors. Outpatient stress test recommended. No ischemic symptoms perioperatively or post-op. (14) Tremor: Consider neurology referral after d/c. familial/benign essential?? no features of PD while here. (15) Alcohol dependence: Cont MVI, thiamine, folic acid supplementation. At risk of withdrawal but no signs of withdrawal to date. Cont alcohol withdrawal precautions. Ativan prn per protocol. (16) DVT prophylaxis: SCDS/TEDs will continue to follow Subjective pt's main complaint is that of back pain. Dr Blank added extended release ms contin to help with basal pain control. he is still requiring frequent use of IV dilaudid. he is passing flatus but not much and certainly has not had a stool yet. no tremors or anxiety. no abd pain or nausea/vomiting. no chest pain or dyspnea. Review of Systems Constitutional: no fever Respiratory: no cough, no dyspnea and no dyspnea on exertion Cardiovascular: no chest pain, no dyspnea on exertion, no orthopnea, no paroxysmal nocturnal dyspnea and no edema Gastrointestinal: + constipation; no abdominal pain, no nausea and no vomiting Genitourinary: no difficulty urinating Physical Exam Constitutional: well developed, well nourished and average body habitus; no acute distress and no altered mental status ENMT: external ear and nose normal, oropharynx normal Respiratory: normal respiratory effort, lungs clear to auscultation Cardiovascular: Rate/Rhythm: regular rate and regular rhythm Heart Sounds: normal S1 and normal S2; no murmur Vessels: posterior tibial pulses present and dorsalis pedis pulses present; no JVD Extremities: no edema Gastrointestinal (Abdomen): normal bowel sounds, soft, nontender, no hepatosplenomegaly Skin: dressings intact over lumbar spine area Neurologic: no focal motor deficits (strength 5/5 both legs) Psychiatric: Orientation: alert and oriented x 3 Results & Data Vital Signs (Past 12 Hours) Vital Signs Temp Pulse Resp BP BP Pulse Ox 03/12/19 16:22 37.2 C 82 17 114/72 94 03/12/19 06:15 37.2 C 86 15 103/65 98 Laboratory Results Laboratory Results - last 24 hr 03/10/19 03/12/19 03/12/19 08:45 06:36 06:36 WBC 11.85 H RBC 3.42 L Hgb 11.5 L Hct 33.2 L MCV 97.1 MCH 33.6 MCHC 34.6 RDW Std Deviation 46.7 H RDW Coeff of Diana 13.3 Plt Count 263 MPV 9.2 Sodium 132 L Potassium 4.4 Chloride 102 Carbon Dioxide 23 Anion Gap 8.0 BUN 27 H Creatinine 1.47 H Est Cr Clr Drug Dosing 54.3 Est GFR ( Amer) 56.8 Est GFR (Non-Af Amer) 49.0 BUN/Creatinine Ratio 18.6 Glucose 103 H POC Glucose Osmolality Uric Acid Calcium 8.8 Magnesium 1.8 Urine Osmolality Ur Random Sodium Crossmatch See Detail 03/12/19 03/12/19 03/12/19 06:38 12:12 17:14 WBC RBC Hgb Hct MCV MCH MCHC RDW Std Deviation RDW Coeff of Diana Plt Count MPV Sodium Potassium Chloride Carbon Dioxide Anion Gap BUN Creatinine Est Cr Clr Drug Dosing Est GFR ( Amer) Est GFR (Non-Af Amer) BUN/Creatinine Ratio Glucose POC Glucose 105 H 87 122 H Osmolality Uric Acid Calcium Magnesium Urine Osmolality Ur Random Sodium Crossmatch 03/12/19 03/12/19 03/12/19 18:29 18:29 20:58 WBC RBC Hgb Hct MCV MCH MCHC RDW Std Deviation RDW Coeff of Diana Plt Count MPV Sodium 133 L Potassium Chloride Carbon Dioxide Anion Gap BUN Creatinine Est Cr Clr Drug Dosing Est GFR ( Amer) Est GFR (Non-Af Amer) BUN/Creatinine Ratio Glucose POC Glucose 115 H Osmolality 283 Uric Acid 7.1 Calcium Magnesium Urine Osmolality Ur Random Sodium Crossmatch 03/12/19 03/12/19 Unknown Unknown WBC RBC Hgb Hct MCV MCH MCHC RDW Std Deviation RDW Coeff of Diana Plt Count MPV Sodium Potassium Chloride Carbon Dioxide Anion Gap BUN Creatinine Est Cr Clr Drug Dosing Est GFR ( Amer) Est GFR (Non-Af Amer) BUN/Creatinine Ratio Glucose POC Glucose Osmolality Uric Acid Calcium Magnesium Urine Osmolality 402 L Ur Random Sodium 31 Crossmatch PG Care Time/CCT Total # of Minutes Spent Total Time Spent with Patient: Total time spent is greater than 50% in coordination of care (as documented) at patient's floor/unit and/or counseling patient: (1) Alcohol dependence Substance use status: uncomplicated Qualified Code(s): F10.20 - Alcohol dependence, uncomplicated (2) 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, type 2 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 complication status: without complication 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 Qualified Code(s): E11.9 - Type 2 diabetes mellitus without complications (3) Depression Depression Type: other depression Qualified Code(s): F32.89 - Other specified depressive episodes (4) Hyperlipidemia Hyperlipidemia type: mixed hyperlipidemia Qualified Code(s): E78.2 - Mixed hyperlipidemia (5) CKD (chronic kidney disease) Chronic kidney disease stage: stage 3 (moderate) Qualified Code(s): N18.3 - Chronic kidney disease, stage 3 (moderate) (6) Chest pain Chest pain type: unspecified Qualified Code(s): R07.9 - Chest pain, unspecified (7) Hypertension Hypertension type: essential hypertension Qualified Code(s): I10 - Essential (primary) hypertension
[2019-03-12 19:09] LABS: Uric Acid 7.1 mg/dl (2.6-7.2)
[2019-03-12] MEDS: DOCUSATE SODIUM/SENNA 50/8.6MG TAB PO SCH (20:20)
[2019-03-12] MEDS: PARoxetine HCl 20 MG TAB PO SCH (20:20)
[2019-03-12] MEDS: OMEGA-3 (PURIFIED FISH OIL) 1 GM CAP PO SCH (20:21)
[2019-03-12] MEDS: PRAVASTATIN SOD 20 MG TAB PO SCH (20:21)
[2019-03-13] MEDS: HYDROmorphone INJ 1 MG/ML SYRINGE IV PRN ×4 (02:25→17:07)
[2019-03-13] MEDS: POLYETHYLENE (MIRALAX) 17 GM PACK PO SCH ×3 (05:34→18:20)
[2019-03-13] MEDS: MAGNESIUM HYDROXIDE SUSP 30 ML UDC PO PRN (05:34)
[2019-03-13 05:39] LABS: BUN Creatinine Ratio 17.8 (10-20); Calcium 8.7 mg/dl (8.5-10.1); Creatinine Clr Calc Pharmacy 51.8 ml/min; Est GFR (African American) 53.7; Est GFR (Non-African American) 46.3
[2019-03-13] MEDS: OXYCODONE HCL IR 5 MG TAB (IMMEDIATE RELEASE) PO PRN ×2 (07:42→14:39)
[2019-03-13] MEDS: INSULIN ASPART 100 UNITS/ML 3 ML PEN SC SCH ×4 (08:35→21:54)
[2019-03-13] MEDS: MoRPHine SULFATE CR 15 MG TABCR PO SCH ×2 (09:24→22:01)
[2019-03-13] MEDS: THIAMINE HCL 100 MG TAB PO SCH (09:24)
[2019-03-13] MEDS: FOLIC ACID 1 MG TAB PO SCH (09:24)
[2019-03-13] MEDS: diazePAM 5 MG TABLET PO SCH ×2 (09:24→22:01)
[2019-03-13] MEDS: CEROVITE ADV FORMULA TAB PO SCH (09:24)
[2019-03-13] MEDS: SODIUM CHLORIDE 1 GM TABLET PO SCH (10:57)
--- NOTE | 2019-03-13 12:59 | Orthopedic Progress Note ---
Date of Service March 13, 2019 Assessment & Plan (1) Spinal stenosis, lumbar region with neurogenic claudication: This time we will continue physical therapy we will maintain the TEJAS drain another 24 hours post complete discharge home tomorrow. We discussed decreasing his daily narcotic utilization. Present on Admission?: Yes Subjective Patient's back pain is controlled. Leg symptoms improved. Physical Exam Physical Exam: On exam he is ambulating halls is good strength testing. Dressing in place. Results & Data Vital Signs (Past 12 Hours) Vital Signs Temp Pulse Pulse Resp BP BP Pulse Ox 03/13/19 11:28 37.3 C 78 11 L 130/68 99 03/13/19 07:35 37.7 C H 78 12 140/76 95 03/13/19 07:10 37.2 C 92 H 16 126/79 92
[2019-03-13] MEDS: ACETAMINOPHEN 500 MG TAB PO PRN (15:37)
--- NOTE | 2019-03-13 17:35 | XRay Report ---
XR abdomen min 2V CLINICAL HISTORY: severe constipation, abd pain COMPARISON STUDY: No previous studies for comparison. FINDINGS: The examination is somewhat limited from a technical standpoint. There are extensive postsu rgical changes present within the lower thoracic and lumbar spine. There is an overlying surgical marietta in. There is no pathologic bowel dilatation. IMPRESSION: No evidence of pathologic bowel dilatation. Electronically signed by: Rodger Biggs M.D. 03/13/2019 5:34 PM
[2019-03-13 18:21] LABS: Appearance Urine Clear (Clear); Bacteria Urine Automated Negative (Negative); Bilirubin Urine Negative (Negative); Blood Urine Trace (Negative); Color Urine Yellow; Glucose Urine UA Negative (Negative); Ketones Urine Negative (Negative); Leukocyte Esterase Urine Negative (Negative); Nitrite Urine Negative (Negative); Protein Urine Trace (Negative); RBC Urine Automated 0-4 /hpf (0-4); Specific Gravity Urine 1.019 (1.000-1.030); Urobilinogen Urine Negative (Negative)
--- NOTE | 2019-03-13 19:00 | Hospitalist Progress Note ---
Date of Service March 13, 2019 Assessment & Plan (1) Fever: may simply be post-operative inflammatory related fever. however, will obtain blood cx's, urine cx, u/a. treat fever w/ antipyretics. consider cxr. 2nd to severe constipation? low threshold for empiric abx if temps continue or worsen. (2) Constipation: severe. due to copious narcotic usage here and at home coupled with recent surgery. no ileus on x-ray; no nausea/vomiting/feeding intolerance to suggest ileus either. he is on senna, colace, and q6h miralax. give fleets enema x 1. if no results then consider "bowel prep" with miralax or golytely. last resort - relistor. (3) Hyponatremia: Patient appears euvolemic. Not on diuretics. Creatinine is at baseline. Urine osm > serum osm. 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 Fluid restrict to 1500cc/day. Start NaCL tab 1gm daily. Repeat Na level tonight and in am. (4) Acute blood loss anemia: mild. stable. acute blood loss is 2nd to surgery. would not add iron supplementation at this time given the severe constipation. (5) Hypomagnesemia: replaced and resolved. repeat level am. (6) Status post lumbar surgery: POD #3-- s/p lumbar decompression-fusion procedure by Dr Blank. Post-op course complicated by hyponatremia, constipation issues, and now fever. I spoke with Dr blank today and made him aware of fever and constipation. He will be seeing the patient tomorrow. (7) CKD (chronic kidney disease): stage 3, with baseline Cr of 1.5-1.6. Cr continues to be stable. cont to hold RAPHAEL as BPs at times are low. (8) 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, type 2: glycemic control remains excellent. cont novolog sliding scale prn. cont to hold metformin. (9) Hypertension: BPs are low or controlled. cont to HOLD RAPHAEL. (10) Chronic pain syndrome: Has been on narcotics at home for years. MS-Contin added by Dr Blank yesterday. Cont this + oxycodone. Despite such still requiring copious dilaudid. Defer management to Dr Blank. Could consider pain management consult. (11) Chronic use of benzodiazepine for therapeutic purpose: Continue valium BID. (12) Depression: Cont home meds including paxil 60mg daily. (13) Anxiety: Valium BID. Paxil. (14) Hyperlipidemia: Cont statin agent. (15) Chest pain: PRIOR TO THE HOSPITAL STAY (SEVERAL MONTHS PRIOR). Had 2-3 episodes over the last few months at home - nonexertional, no radiation to the arms/neck/back, resolved on own. No recent stress test. Pre-op EKG wnl. Multiple CAD risk factors. Outpatient stress test recommended. No ischemic symptoms perioperatively or post-op. (16) Tremor: Consider neurology referral after d/c. familial/benign essential?? no features of PD while here. he has minimal to no tremor most days I have seen him. (17) Alcohol dependence: Still no signs of etoh withdrawal. Unlikely to have any at this point in hospital stay. Cont MVI, thiamine, folic acid supplementation. Cont alcohol withdrawal precautions. Ativan prn per protocol. (18) DVT prophylaxis: SCDS/TEDs ambulation Subjective patient c/o constipation- no BM in 5+ days. passing little flatus. despite such he has no nausea, emesis or inability to eat. he has mild abd pain, however, due to the constipation. had fever/chills this afternoon. denies dysuria or difficulty voiding. denies cough. denies other infectious symptoms. states that during positioning for KUB x-ray he heard a "pop" in his back. still requiring COPIOUS amounts of IV dilaudid for breakthrough pain. Review of Systems Constitutional: + fever and + chills; no anorexia Respiratory: no cough, no chest congestion, no dyspnea and no dyspnea on exertion Cardiovascular: no chest pain Gastrointestinal: + abdominal pain, + bloating and + constipation; no nausea, no vomiting and no diarrhea/loose stools Genitourinary: no dysuria Musculoskeletal: + back pain Neurologic: + numbness (right upper lateral thigh only ); no localized weakness Physical Exam Constitutional: well developed, well nourished and average body habitus; no acute distress and no altered mental status ENMT: external ear and nose normal, oropharynx normal Neck: trachea midline, no thyromegaly Respiratory: normal respiratory effort, lungs clear to auscultation Cardiovascular: Rate/Rhythm: regular rate and regular rhythm Heart Sounds: normal S1 and normal S2; no murmur Vessels: posterior tibial pulses present and dorsalis pedis pulses present; no JVD Extremities: no edema Gastrointestinal (Abdomen): Inspection/Auscultation: + abdomen distended (mild); + abnormal bowel sounds (modestly decreased) Percussion/Palpation: abdomen soft; abdomen nontender and no hepatosplenomegaly Skin: no rashes, warm and dry Neurologic: no focal motor deficits (strength 5/5 both legs) Psychiatric: Orientation: alert and oriented x 3 Results & Data Vital Signs (Past 12 Hours) Vital Signs Temp Pulse Pulse Resp BP BP Pulse Ox 03/13/19 16:27 38.5 C H 03/13/19 15:41 38.4 C H 03/13/19 15:02 38.0 C H 97 H 18 112/72 96 03/13/19 11:28 37.3 C 78 11 L 130/68 99 03/13/19 08:15 36.9 C 03/13/19 07:35 37.7 C H 78 12 140/76 95 03/13/19 07:10 37.2 C 92 H 16 126/79 92 Laboratory Results Laboratory Results - last 24 hr 03/12/19 03/12/19 03/12/19 18:29 18:29 20:58 Sodium 133 L Potassium Chloride Carbon Dioxide Anion Gap BUN Creatinine Est Cr Clr Drug Dosing Est GFR ( Amer) Est GFR (Non-Af Amer) BUN/Creatinine Ratio Glucose POC Glucose 115 H Osmolality 283 Uric Acid 7.1 Calcium Urine Color Urine Appearance Urine pH Ur Specific [place] Urine Protein Urine Glucose (UA) Urine Ketones Urine Blood Urine Nitrite Urine Bilirubin Urine Urobilinogen Ur Leukocyte Esterase Urine WBC (Auto) Urine RBC (Auto) U Hyaline Cast (Auto) U Epithel Cells (Auto) Urine Bacteria (Auto) Urine Osmolality Ur Random Sodium 03/12/19 03/12/19 03/13/19 Unknown Unknown 05:01 Sodium 131 L Potassium 4.0 Chloride 99 Carbon Dioxide 25 Anion Gap 7.0 BUN 27 H Creatinine 1.54 H Est Cr Clr Drug Dosing 51.8 Est GFR ( Amer) 53.7 Est GFR (Non-Af Amer) 46.3 BUN/Creatinine Ratio 17.8 Glucose 95 POC Glucose Osmolality Uric Acid Calcium 8.7 Urine Color Urine Appearance Urine pH Ur Specific [place] Urine Protein Urine Glucose (UA) Urine Ketones Urine Blood Urine Nitrite Urine Bilirubin Urine Urobilinogen Ur Leukocyte Esterase Urine WBC (Auto) Urine RBC (Auto) U Hyaline Cast (Auto) U Epithel Cells (Auto) Urine Bacteria (Auto) Urine Osmolality 402 L Ur Random Sodium 31 03/13/19 03/13/19 03/13/19 08:28 12:06 16:20 Sodium 133 L Potassium Chloride Carbon Dioxide Anion Gap BUN Creatinine Est Cr Clr Drug Dosing Est GFR ( Amer) Est GFR (Non-Af Amer) BUN/Creatinine Ratio Glucose POC Glucose 102 H 114 H Osmolality Uric Acid Calcium Urine Color Urine Appearance Urine pH Ur Specific [place] Urine Protein Urine Glucose (UA) Urine Ketones Urine Blood Urine Nitrite Urine Bilirubin Urine Urobilinogen Ur Leukocyte Esterase Urine WBC (Auto) Urine RBC (Auto) U Hyaline Cast (Auto) U Epithel Cells (Auto) Urine Bacteria (Auto) Urine Osmolality Ur Random Sodium 03/13/19 17:34 Sodium Potassium Chloride Carbon Dioxide Anion Gap BUN Creatinine Est Cr Clr Drug Dosing Est GFR ( Amer) Est GFR (Non-Af Amer) BUN/Creatinine Ratio Glucose POC Glucose Osmolality Uric Acid Calcium Urine Color Yellow Urine Appearance Clear Urine pH 5.0 Ur Specific [place] 1.019 Urine Protein Trace H Urine Glucose (UA) Negative Urine Ketones Negative Urine Blood Trace H Urine Nitrite Negative Urine Bilirubin Negative Urine Urobilinogen Negative Ur Leukocyte Esterase Negative Urine WBC (Auto) 1-5 Urine RBC (Auto) 0-4 U Hyaline Cast (Auto) 1-5 U Epithel Cells (Auto) 5-10 H Urine Bacteria (Auto) Negative Urine Osmolality Ur Random Sodium Diagnostic Findings KUB x-ray- my reading - no bowel dilatation; copious stool throughout much of colon PG Care Time/CCT Total # of Minutes Spent Total Time Spent with Patient: Total time spent is greater than 50% in coordination of care (as documented) at patient's floor/unit and/or counseling patient: (1) Alcohol dependence Substance use status: uncomplicated Qualified Code(s): F10.20 - Alcohol dependence, uncomplicated (2) 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, type 2 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 complication status: without complication 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 Qualified Code(s): E11.9 - Type 2 diabetes mellitus without complications (3) Depression Depression Type: other depression Qualified Code(s): F32.89 - Other specified depressive episodes (4) Hyperlipidemia Hyperlipidemia type: mixed hyperlipidemia Qualified Code(s): E78.2 - Mixed hyperlipidemia (5) CKD (chronic kidney disease) Chronic kidney disease stage: stage 3 (moderate) Qualified Code(s): N18.3 - Chronic kidney disease, stage 3 (moderate) (6) Chest pain Chest pain type: unspecified Qualified Code(s): R07.9 - Chest pain, unspecified (7) Hypertension Hypertension type: essential hypertension Qualified Code(s): I10 - Essential (primary) hypertension (8) Fever Fever type: unspecified Qualified Code(s): R50.9 - Fever, unspecified (9) Constipation Constipation type: drug induced constipation Qualified Code(s): K59.03 - Drug induced constipation
[2019-03-13] MEDS: PRAVASTATIN SOD 20 MG TAB PO SCH (21:33)
[2019-03-13] MEDS: OMEGA-3 (PURIFIED FISH OIL) 1 GM CAP PO SCH (21:33)
[2019-03-13] MEDS: PARoxetine HCl 20 MG TAB PO SCH (21:33)
[2019-03-13] MEDS: DOCUSATE SODIUM/SENNA 50/8.6MG TAB PO SCH (21:33)
[2019-03-14] MEDS: POLYETHYLENE (MIRALAX) 17 GM PACK PO SCH ×4 (00:11→17:44)
[2019-03-14] MEDS: HYDROmorphone INJ 1 MG/ML SYRINGE IV PRN ×4 (00:13→23:41)
[2019-03-14] MEDS: OXYCODONE HCL IR 5 MG TAB (IMMEDIATE RELEASE) PO PRN ×2 (03:11→17:42)
[2019-03-14] MEDS: MAGNESIUM HYDROXIDE SUSP 30 ML UDC PO PRN (05:51)
[2019-03-14 06:16] LABS: BUN Creatinine Ratio 15.3 (10-20); Calcium 8.9 mg/dl (8.5-10.1); Creatinine Clr Calc Pharmacy 58.2 ml/min; Est GFR (African American) 61.9; Est GFR (Non-African American) 53.4; Magnesium 1.9 mg/dl (1.8-2.4); Potassium 4.2 mmol/L (3.5-5.1)
[2019-03-14] MEDS: INSULIN ASPART 100 UNITS/ML 3 ML PEN SC SCH ×4 (09:07→21:04)
--- NOTE | 2019-03-14 09:15 | Orthopedic Progress Note ---
Date of Service March 14, 2019 Assessment & Plan (1) Spinal stenosis, lumbar region with neurogenic claudication: This time we will discontinue his drain today. Continue activity and bowel regimen as tolerated. Anticipate discharge home tomorrow. Present on Admission?: Yes Subjective Patient's back pain is more more controlled. He did have a bowel movement last night this morning. He is feeling somewhat improved. Physical Exam Physical Exam: Patient appears more comfortable is neurologically intact. Results & Data Vital Signs (Past 12 Hours) Vital Signs Temp Pulse Resp BP BP Pulse Ox 03/14/19 06:18 37.2 C 86 16 107/58 L 92 03/13/19 23:10 37 C 82 16 101/62 94
[2019-03-14] MEDS: FOLIC ACID 1 MG TAB PO SCH (10:01)
[2019-03-14] MEDS: CEROVITE ADV FORMULA TAB PO SCH (10:02)
[2019-03-14] MEDS: diazePAM 5 MG TABLET PO SCH ×2 (10:02→20:41)
[2019-03-14] MEDS: SODIUM CHLORIDE 1 GM TABLET PO SCH (10:02)
[2019-03-14] MEDS: MoRPHine SULFATE CR 15 MG TABCR PO SCH ×2 (10:02→20:41)
[2019-03-14] MEDS: THIAMINE HCL 100 MG TAB PO SCH (10:02)
--- NOTE | 2019-03-14 11:01 | Hospitalist Progress Note ---
Date of Service March 14, 2019 Assessment & Plan (1) Status post lumbar surgery: - POD#4 lumbar decompression fusion procedure. - Continues to have issues with pain control -- MS Contin 30 mg BID was added on 03/12. - Will decrease Dilaudid to 1 mg IV q8hr and continue Oxycodone q6hr prn pain to prepare for discharge over next 24 hours. - PT/OT - discharge to home pending adequate pain control. (2) Fever: - Post-operative inflammatory related fever vs. related to infection. - U/a was negative; UC and BC are pending. - Consider CXR for recurrent fevers. - Hold abx coverage at this time - has been afebrile >24 hours. (3) Constipation: - Now resolved -- had multiple BMs this morning. - Continue Senokot S 2 tab qhs, Miralax q6hr in setting of high opioid use. - Abd XR was neg for obstruction/ileus on 03/13. (4) Hyponatremia: - Possibly related to SIADH in setting of recent surgery vs. Tramadol induced. - Responded well to 1500 cc fluid restriction -- will change to 2L per day. - Continue NaCl 1 gm PO daily. - Monitor levels daily. (5) Acute blood loss anemia: - Related to recent surgery. - Monitor CBC daily - hold iron supplementation due to constipation. (6) CKD (chronic kidney disease): - CKD Stage III. Creatinine currently below baseline. - Renally dose all meds. (7) 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, type 2: - Holding home Metformin. - A1C was 5.4 in Feb 2019. - Continue SSI coverage - BG well controlled. (8) Hypertension: - Holding home ACEI - BP has been normo to hypotensive. (9) Chronic pain syndrome: - On narcotics (Oxycodone and Percocet) for years at home; difficult to obtain adequate pain control as inpt. - MS Contin 30 mg BID started on 03/[address] Blank. - Will decrease Dilaudid to 1 mg IV q8hr to prepare for discharge; encourage oral Oxycodone usage. - Will need pain management consult if we are not able to taper Dilaudid dosing. (10) Chronic use of benzodiazepine for therapeutic purpose: - Continue Valium 5 mg BID. (11) Depression: - Continue home Paxil as prescribed. (12) Anxiety: - Continue Valium and Paxil. (13) Hyperlipidemia: - Continue Pravachol and Fish oil as prescribed. (14) Chest pain: - Several months prior to hospital admission. - Preop EKG was WNL. Has multiple CAD risk factors. - Recommend f/u with cardiology and outpatient stress test. (15) Tremor: - May be benign vs. familial. - Consider neuro referral as outpatient. (16) Alcohol dependence: - No evidence of acute withdrawal. - Continue folic acid, B1 replacement. - Ativan prn per protocol. (17) Hypomagnesemia: - Replaced prn. (18) DVT prophylaxis: - TEDs/SCDs; ppx per ortho team. Dispo: Med/surg for pain control post op. Discharge likely on 03/15 pending adequate pain control. Supervising Physician Co-Signing Physician Notes I have seen and examined patient with Ruby Callahan PA-C and agree with assessment and plan. Subjective Pt. complains of / back pain - he has been using Dilaudid IV frequently. We discussed discontinuing Dilaudid usage today -- pt. reports he cannot stop using Dilaudid as it is helping with short term pain. He states Oxycodone/Percocet will not help with pain. He was lethargic last evening -- MS Contin and home Valium were held but can be resumed this morning. He had 3 BMs this morning. Discussed case with Dr. Blank - will decrease Dilaudid to q8hr to begin tapering off IV narcotics to prepare for discharge. Review of Systems Review of Systems: All systems reviewed & are unremarkable except as noted in HPI & below Constitutional: no fever, no chills, no fatigue and no weakness Respiratory: no cough, no dyspnea, no dyspnea on exertion and no wheezing Cardiovascular: no chest pain, no palpitations and no edema Gastrointestinal: + abdominal pain; no nausea and no constipation Genitourinary: no difficulty urinating Musculoskeletal: + back pain; no joint pain Integumentary: no non-healing lesions Physical Exam Physical Exam: General: Resting comfortably HEENT: NC/AT; PERRLA with EOMI; Angie conjunctiva, MMM. No erythema of posterior pharynx Neck: Supple and nontender Cardiac: RRR Lungs: CTA bilaterally Abdomen: Bowel normoactive X 4; Nontender to palpation Extremities: Warm. No edema present Neuro: No focal weakness Skin: No rash; dressing in place on spine, no discharge noted. Results & Data Vital Signs (Past 12 Hours) Vital Signs Temp Pulse Resp BP BP Pulse Ox 03/14/19 06:18 37.2 C 86 16 107/58 L 92 03/13/19 23:10 37 C 82 16 101/62 94 Laboratory Results 03/14/19 03/14/19 03/13/19 Range/Units 06:40 05:31 20:34 Sodium 135 L (136-145) mmol/L Potassium 4.2 (3.5-5.1) mmol/L Chloride 101 (98-107) mmol/L Carbon Dioxide 28 (21-32) mmol/L Anion Gap 6.0 (3-11) BUN 21 H (7-18) mg/dl Creatinine 1.37 (0.6-1.4) mg/dl Est Cr Clr Drug Dosing 58.2 ml/min Est GFR ( Amer) 61.9 Est GFR (Non-Af Amer) 53.4 BUN/Creatinine Ratio 15.3 (10-20) Glucose 103 H (70-99) mg/dl POC Glucose 112 H 147 H (70-99) Calcium 8.9 (8.5-10.1) mg/dl Magnesium 1.9 (1.8-2.4) mg/dl Urine Color Urine Appearance (Clear) Urine pH (4.5-7.5) Ur Specific [place] (1.000-1.030) Urine Protein (Negative) Urine Glucose (UA) (Negative) Urine Ketones (Negative) Urine Blood (Negative) Urine Nitrite (Negative) Urine Bilirubin (Negative) Urine Urobilinogen (Negative) Ur Leukocyte Esterase (Negative) Urine WBC (Auto) (0-5) /hpf Urine RBC (Auto) (0-4) /hpf U Hyaline Cast (Auto) (0-5) /lpf U Epithel Cells (Auto) (0-5) /lpf Urine Bacteria (Auto) (Negative) 03/13/19 03/13/19 03/13/19 Range/Units 17:34 16:56 16:20 Sodium 133 L (136-145) mmol/L Potassium (3.5-5.1) mmol/L Chloride (98-107) mmol/L Carbon Dioxide (21-32) mmol/L Anion Gap (3-11) BUN (7-18) mg/dl Creatinine (0.6-1.4) mg/dl Est Cr Clr Drug Dosing ml/min Est GFR ( Amer) Est GFR (Non-Af Amer) BUN/Creatinine Ratio (10-20) Glucose (70-99) mg/dl POC Glucose 129 H (70-99) Calcium (8.5-10.1) mg/dl Magnesium (1.8-2.4) mg/dl Urine Color Yellow Urine Appearance Clear (Clear) Urine pH 5.0 (4.5-7.5) Ur Specific [place] 1.019 (1.000-1.030) Urine Protein Trace H (Negative) Urine Glucose (UA) Negative (Negative) Urine Ketones Negative (Negative) Urine Blood Trace H (Negative) Urine Nitrite Negative (Negative) Urine Bilirubin Negative (Negative) Urine Urobilinogen Negative (Negative) Ur Leukocyte Esterase Negative (Negative) Urine WBC (Auto) 1-5 (0-5) /hpf Urine RBC (Auto) 0-4 (0-4) /hpf U Hyaline Cast (Auto) 1-5 (0-5) /lpf U Epithel Cells (Auto) 5-10 H (0-5) /lpf Urine Bacteria (Auto) Negative (Negative) 03/13/19 Range/Units 12:06 Sodium (136-145) mmol/L Potassium (3.5-5.1) mmol/L Chloride (98-107) mmol/L Carbon Dioxide (21-32) mmol/L Anion Gap (3-11) BUN (7-18) mg/dl Creatinine (0.6-1.4) mg/dl Est Cr Clr Drug Dosing ml/min Est GFR ( Amer) Est GFR (Non-Af Amer) BUN/Creatinine Ratio (10-20) Glucose (70-99) mg/dl POC Glucose 114 H (70-99) Calcium (8.5-10.1) mg/dl Magnesium (1.8-2.4) mg/dl Urine Color Urine Appearance (Clear) Urine pH (4.5-7.5) Ur Specific [place] (1.000-1.030) Urine Protein (Negative) Urine Glucose (UA) (Negative) Urine Ketones (Negative) Urine Blood (Negative) Urine Nitrite (Negative) Urine Bilirubin (Negative) Urine Urobilinogen (Negative) Ur Leukocyte Esterase (Negative) Urine WBC (Auto) (0-5) /hpf Urine RBC (Auto) (0-4) /hpf U Hyaline Cast (Auto) (0-5) /lpf U Epithel Cells (Auto) (0-5) /lpf Urine Bacteria (Auto) (Negative) PG Care Time/CCT Total # of Minutes Spent Total Time Spent with Patient: Total time spent is greater than 50% in coordination of care (as documented) at patient's floor/unit and/or counseling p atient: (1) Alcohol dependence Substance use status: uncomplicated Qualified Code(s): F10.20 - Alcohol dependence, uncomplicated (2) Fever Fever type: unspecified Qualified Code(s): R50.9 - Fever, unspecified (3) 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, type 2 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 complication status: without complication 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 buttermaker helper insulin use: without buttermaker helper use Qualified Code(s): E11.9 - Type 2 diabetes mellitus without complications (4) Depression Depression Type: other depression Qualified Code(s): F32.89 - Other specified depressive episodes (5) Hyperlipidemia Hyperlipidemia type: mixed hyperlipidemia Qualified Code(s): E78.2 - Mixed hyperlipidemia (6) CKD (chronic kidney disease) Chronic kidney disease stage: stage 3 (moderate) Qualified Code(s): N18.3 - Chronic kidney disease, stage 3 (moderate) (7) Chest pain Chest pain type: unspecified Qualified Code(s): R07.9 - Chest pain, unspecified (8) Hypertension Hypertension type: essential hypertension Qualified Code(s): I10 - Essential (primary) hypertension (9) Constipation Constipation type: drug induced constipation Qualified Code(s): K59.03 - Drug induced constipation
[2019-03-14] MEDS: OMEGA-3 (PURIFIED FISH OIL) 1 GM CAP PO SCH (20:42)
[2019-03-14] MEDS: DOCUSATE SODIUM/SENNA 50/8.6MG TAB PO SCH (20:42)
[2019-03-14] MEDS: PARoxetine HCl 20 MG TAB PO SCH (20:42)
[2019-03-14] MEDS: PRAVASTATIN SOD 20 MG TAB PO SCH (20:43)
[2019-03-15 05:10] LABS: Hematocrit (blood only) 28.4 % (42-52); Hemoglobin 9.7 g/dL (14.0-18.0); Mean Corpuscular Hemoglobin 33.3 pg (25-34); Mean Corpuscular Hgb Conc 34.2 g/dL (32-36); Mean Corpuscular Volume 97.6 fL (80-100); Mean Platelet Volume 9.1 fL (7.4-10.4); Platelet Count 222 K/uL (130-400); RDW Coefficient of Variation 12.7 % (11.5-14.5); RDW Standard Deviation 45.3 fL (36.4-46.3); Red Blood Count 2.91 M/uL (4.7-6.1); White Blood Count 10.81 K/uL (4.8-10.8)
[2019-03-15 05:36] LABS: BUN Creatinine Ratio 12.4 (10-20); Calcium 8.7 mg/dl (8.5-10.1); Creatinine Clr Calc Pharmacy 66.5 ml/min; Est GFR (African American) 72.6; Est GFR (Non-African American) 62.6; Magnesium 1.8 mg/dl (1.8-2.4)
[2019-03-15] MEDS: OXYCODONE HCL IR 5 MG TAB (IMMEDIATE RELEASE) PO PRN (06:03)
[2019-03-15 07:32] VITALS: BP 100/62; PULSE 83; TEMP 98.8; O2SAT 93
[2019-03-15] MEDS: MoRPHine SULFATE CR 15 MG TABCR PO SCH (08:19)
[2019-03-15] MEDS: CEROVITE ADV FORMULA TAB PO SCH (08:19)
[2019-03-15] MEDS: FOLIC ACID 1 MG TAB PO SCH (08:19)
[2019-03-15] MEDS: diazePAM 5 MG TABLET PO SCH (08:20)
[2019-03-15] MEDS: SODIUM CHLORIDE 1 GM TABLET PO SCH (08:20)
[2019-03-15] MEDS: THIAMINE HCL 100 MG TAB PO SCH (08:20)
[2019-03-15] MEDS: INSULIN ASPART 100 UNITS/ML 3 ML PEN SC SCH (08:34)
--- NOTE | 2019-03-15 08:53 | Discharge Summary ---
Date of Service March 15, 2019 Admission HPI Per Admitting Provider This is a 68-year-old male well-known to me that presents with chronic persistent back and bilateral leg pain. After failing a course of nonoperative care is here for surgical intervention. Admission Exam (Per Admitting) Constitutional WD/WN, vitals as above Eyes normal visual johnson by confrontation ENMT external ear and nose normal, oropharynx normal Neck normal visual inspection Respiratory normal respiratory effort Cardiovascular Vessels: dorsalis pedis pulses present Extremities: normal capillary refill Gastrointestinal (Abdomen) Inspection/Auscultation: abdomen normal to inspection Musculoskeletal no cyanosis or clubbing, extremities motor strength 5/5 Spine: + pain with thoraco-lumbar ROM Extremities: extremities normal to inspection and strength 5/5 throughout Gait: normal gait Skin no rashes, warm and dry Neurologic patellar DTR's 2+ bilat, sensation intact deep tendon reflexes 2+ bilaterally and moves all extremities Psychiatric A+Ox3, euthymic affect Discharge Data Consultations 03/10/19 14:18 Consult Case Management - Discharge Planning Routine Consult Hospitalist Routine Procedures Performed Operation Date: 03/10/19 10:05 Actual Procedures p T11-L2 Decompression and Fusion, Application of osteoamp, application of infuse, interbody cage level L1-L2 , Spinal Cord Monitoring(Not Applicable) - Sanchez Blank DO s L2 Hardware Removal(Not Applicable) - Sanchez Blank DO Hospital Course (1) Spinal stenosis, lumbar region with neurogenic claudication: Patient has been discharged home on postoperative day 5. He struggled with pain control issues toward his postoperative course. He is on chronic narcotics. By the team at the time of discharge she is ambling 675 feet in ph ysical therapy. He had a bowel movement. Pain is under better control. Lab values have been stable. Discharge Instructions ACTIVITY RECOMMENDATIONS: SELF CARE INSTRUCTIONS AFTER THORACIC/LUMBAR FUSIONS 1. You may walk to your tolerance. It is good exercise for your legs and back. Expect some back and intermittent leg aches and pains. 2. You may perform "counter-top" level activities (make a sandwich, renetta with a project, etc.). 3. No bending or lifting of more than 10 pounds or back twisting of any nature (roll like a log when turning in bed). 4. You may ride in a car for 20-30 minutes at a time. No driving until after your first visit with your doctor. 5. Frequent changes of position and restricting sitting to 30 minutes at a time will help limit the amount of back spasms and stiffness you may experience. 6. You may discontinue the use of ambulatory aids (cane, crutches, etc.) once your strength and confidence allow. 7. You may package dye stand loader the shower and let water strike your incision when you arrive home at least once daily. Do not take a tub bath, sit in a hot tub or go into a swimming pool until after your first recheck in the office. SPECIAL CARE INSTRUCTIONS: VERY IMPORTANT TO READ AND REVIEW A. Your surgical incision has been closed with a cosmetic suture under the skin that will dissolve in about 6 weeks. In 14 days, you can use a pair of clean scissors and cut the suture that is left outside of the skin at the ends of your incision. 1. The small skin tapes can be removed 7 days after surgery if they have not fallen off by that point. 2. You may keep the wound open to air as much as possible to promote healing after post-op day number 5 unless told otherwise by your doctor. 3. If you think the wound looks like it is becoming infected (redness or worsening drainage) and/or you are experiencing fever, chill or worsening back pain and muscle spasms, contact the office so that we may evaluate you as soon as possible. B. Complications are uncommon, but please contact us if you have any signs or symptoms of: 1. wound infection (fever higher than 102.5 degrees F, redness, separation of wound, drainage, or increasing pain from the incision) 2. blood clots in legs (pain, swelling, redness and warmth in legs) 3. urinary tract infection (fever higher than 102.5 degrees F, burning upon urination or increased frequency of urination) 4. nerve problems (inability to walk on your toes or heels, numbness, loss of bowel or bladder control) 5. any other symptoms that concern you C. Please call the office at if you have any concerns or questions about your operation or recovery. D. No smoking! Smoking drastically decreases the chance of a solid fusion. E. Do not take any anti-inflammatory medications (Indocin, Advil, Motrin, Aspirin, Naprosyn, etc.) as these may inhibit the chance of a solid fusion. Tylenol is okay to take for pain. MANAGING PAIN AFTER SPINAL SURGERY 1. Narcotic medication is intended for short-term use and will be provided for surgical pain. Surgical pain usually lasts for a period of 4-6 weeks. Narcotic medication includes Percocet, Vicodin, Darvocet, Tylenol #3 or Lortab. 2. Longer-term pain is more appropriately treated with non-narcotic medication such as Tylenol ES. 3. Muscle spasm is not appropriately treated with narcotics. Muscle relaxers such as Soma, Flexeril or Skelaxin can be used along with Tylenol ES. 4. Remember that we all live with some "aches and pains". This is not unusual or uncommon after an injury or as we get older. a. Back pain is expected and may include muscle spasms for 4 to 6 weeks after surgery. The pain should gradually improve. If the pain worsens for no apparent reason, please contact the office. b. Intermittent leg pain may also be experienced and should not be concerned about unless it worsens for no apparent reason. If so, please contact the office. 5. We will provide appropriate medication within the normal guidelines of their prescribed use. We will also be very cautious and aware of potential abuse and extended duration of patients' medication needs. a. Pain medications are for your comfort and to assist with sleep and rest so that the tissue can heal. They are not provided in order to return to normal activity and should not be used through the day. To do so or worsening pain at night can result from ongoing tissue damage and development of tolerance to the prescribed medicine. 6. Please allow 2-3 days to process refills. Prescriptions will not be mailed but must be picked up at the office. FOLLOW UP VISIT: Keep your scheduled follow-up appointment. Any questions, please call the office at . Supervising Physician Co-Signing Physician Notes Dr. Sanchez Blank
--- NOTE | 2019-03-15 12:11 | Communication Note ---
Date of Service: March 15, 2019 Did not evaluate patient at bedside today. Per chart rounding: Na level is stable -- consider outpatient monitoring of BMP in 1-2 weeks. Hgb trended down to 9.7 - likely related to post op setting. Recommend outpatient CBC in 1-2 weeks. Continue MS Contin 30 mg BID with short acting narcotics for break through pain. He is medically stable for discharge, will sign off. I Fatoumata have seen and examined pt, and I agree with Ruby Callahan PA-C assessment and plan.
== END 2019-03-15 10:25 | disposition home or self-care (01) | DRG 454 ==
LOC: ASU 08:22 → 3E 12:51

== ENCOUNTER 2019-09-23 18:49 | Inpatient (IN) ==
[2019-09-23] MEDS ORDERED: FAMOTIDINE 20MG IV PUSH 20 MG/5 ML SYR IV STA (19:16)
[2019-09-23] MEDS ORDERED: DiphenhydrAMINE HCL 50 MG/ML VIAL IV STA (19:16)
[2019-09-23] MEDS ORDERED: PROCHLORPERAZINE 2 ML IV ONE (19:16)
[2019-09-23] MEDS ORDERED: SODIUM CHLORIDE 0.9% 1000ML 1,000 ML IV ONE (19:17)
--- NOTE | 2019-09-23 19:24 | Emergency Department Note ---
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 [place] % (Auto) Eos % (Auto) Baso % (Auto) Immature Gran # (Auto) Neut # (Auto) Lymph # (Auto) [place] # (Auto) Eos # (Auto) Baso # (Auto) Absolute Nucleated RBC Nucleated RBC % (auto) Neutrophils % (Manual) Band Neutrophils % Lymphocytes % (Manual) Prolymphocyte % Reactive Lymphs % (Man) Monocytes % (Manual) Eosinophils % (Manual) Basophils % (Manual) Metamyelocytes % (Man) Myelocytes % (Man) Promyelocytes % (Man) Blast Cells % (Manual) Plasma Cell % (Manual) Other Cells % Nucleated RBC % Neutrophils # (Manual) Band Neutrophils # Total Absolute Neuts Lymphocytes # (Manual) Prolymphocyte # Reactive Lymphs # Total Abs Lymphocytes Monocytes # (Manual) Eosinophils # (Manual) Basophils # (Manual) Metamyelocytes # (Man) Myelocytes # (Manual) Promyelocytes # (Man) Blast Cells # (Man) Plasma Cell # (Manual) Other Cells # Nucleated RBCs # (Man) Hypersegmented Neuts Hyposegmented Neuts Hypogranular Neuts Large Granular Lymphs # Lrg Granular Lymphs Hairy Cells Smudge Cells Toxic Granulation Toxic Vacuolation Dohle Bodies Yordy Rods Platelet Estimate Hypogranular Platelets Clumped Platelets Giant Platelets Platelet Satelliting RBC Morphology Polychromasia Hypochromasia Poikilocytosis Basophilic Stippling Anisocytosis Microcytosis Macrocytosis Spherocytes Pappenheimer Bodies Sickle Cells Target Cells Tear Drop Cells Ovalocytes Stomatocytes [place] Dickinson Bodies Echinocytes Acanthocytes (Spur) Rouleaux RBC Agglutinates Schistocytes RBC Morph Comment Sezary Cell PT INR APTT PTT Ratio POC Sodium (135-144) mmol/L Sodium POC Potassium (3.3-5.0) mmol/L Potassium POC Chloride (101-112) mmol/L Chloride Carbon Dioxide POC Total CO2 (24-31) mmol/L Anion Gap POC Anion Gap (16-25) mmol/L POC BUN (7-18) mg/dl BUN Creatinine POC Creatinine (0.6-1.3) mg/dl Est Cr Clr Drug Dosing Est GFR ( Amer) Est GFR (Non-Af Amer) BUN/Creatinine Ratio Glucose POC Glucose 75 (70-99) mg/dl POC Glucose (other) (70-99) mg/dl Lactate 1.0 (0.4-2.0) mmol/L Calcium POC Ioniz Calcium Steffen (1.12-1.32) mmol/l Phosphorus Magnesium Total Bilirubin Direct Bilirubin AST ALT Alkaline Phosphatase Total Creatine Kinase (39-308) U/L Troponin I Total Protein Albumin Globulin Albumin/Globulin Ratio Lipase TSH Ethyl Alcohol mg/dL < 3.0 COVID-19 PCR (Negative) Influenza Type A (PCR) (Neg) Influenza Type B (PCR) (Neg) 09/24/19 09/24/19 Range/Units 01:09 02:06 WBC RBC Hgb POC Hgb 11.9 L (14.0-18.0) g/dl Hct POC Hct 35 L (42-52) % MCV MCH MCHC RDW Std Deviation RDW Coeff of Diana Plt Count MPV Immature Gran % (Auto) Neut % (Auto) Lymph % (Auto) [place] % (Auto) Eos % (Auto) Baso % (Auto) Immature Gran # (Auto) Neut # (Auto) Lymph # (Auto) [place] # (Auto) Eos # (Auto) Baso # (Auto) Absolute Nucleated RBC Nucleated RBC % (auto) Neutrophils % (Manual) Band Neutrophils % Lymphocytes % (Manual) Prolymphocyte % Reactive Lymphs % (Man) Monocytes % (Manual) Eosinophils % (Manual) Basophils % (Manual) Metamyelocytes % (Man) Myelocytes % (Man) Promyelocytes % (Man) Blast Cells % (Manual) Plasma Cell % (Manual) Other Cells % Nucleated RBC % Neutrophils # (Manual) Band Neutrophils # Total Absolute Neuts Lymphocytes # (Manual) Prolymphocyte # Reactive Lymphs # Total Abs Lymphocytes Monocytes # (Manual) Eosinophils # (Manual) Basophils # (Manual) Metamyelocytes # (Man) Myelocytes # (Manual) Promyelocytes # (Man) Blast Cells # (Man) Plasma Cell # (Manual) Other Cells # Nucleated RBCs # (Man) Hypersegmented Neuts Hyposegmented Neuts Hypogranular Neuts Large Granular Lymphs # Lrg Granular Lymphs Hairy Cells Smudge Cells Toxic Granulation Toxic Vacuolation Dohle Bodies Yordy Rods Platelet Estimate Hypogranular Platelets Clumped Platelets Giant Platelets Platelet Satelliting RBC Morphology Polychromasia Hypochromasia Poikilocytosis Basophilic Stippling Anisocytosis Microcytosis Macrocytosis Spherocytes Pappenheimer Bodies Sickle Cells Target Cells Tear Drop Cells Ovalocytes Stomatocytes [place] Dickinson Bodies Echinocytes Acanthocytes (Spur) Rouleaux RBC Agglutinates Schistocytes RBC Morph Comment Sezary Cell PT INR APTT PTT Ratio POC Sodium 131 L (135-144) mmol/L Sodium 133 L POC Potassium 5.3 H (3.3-5.0) mmol/L Potassium 5.1 D POC Chloride 98 L (101-112) mmol/L Chloride 100 Carbon Dioxide 23 POC Total CO2 23 L (24-31) mmol/L Anion Gap 10.0 POC Anion Gap 16.0 (16-25) mmol/L POC BUN 65 H (7-18) mg/dl BUN 54 H Creatinine 2.55 H D POC Creatinine 2.8 H (0.6-1.3) mg/dl Est Cr Clr Drug Dosing 34.1 Est GFR ( Amer) 29.0 Est GFR (Non-Af Amer) 25.0 BUN/Creatinine Ratio 21.2 H Glucose 97 POC Glucose (70-99) mg/dl POC Glucose (other) 92 (70-99) mg/dl Lactate (0.4-2.0) mmol/L Calcium 8.4 L POC Ioniz Calcium Steffen 1.14 (1.12-1.32) mmol/l Phosphorus Magnesium Total Bilirubin Direct Bilirubin AST ALT Alkaline Phosphatase Total Creatine Kinase 521 H (39-308) U/L Troponin I Total Protein Albumin Globulin Albumin/Globulin Ratio Lipase TSH Ethyl Alcohol mg/dL COVID-19 PCR (Negative) Influenza Type A (PCR) (Neg) Influenza Type B (PCR) (Neg) Administered Medications Sodium Chloride (Nss 1000ml) 1,000 mls @ 125 mls/hr IV .Q8H JORJE Stop: 10/23/19 21:59 Last Admin: 09/23/19 22:36 Dose: 125 mls/hr Documented by: [id number] Ioversol (Optiray 320 100ml) 100 ml IV ONCE PRN PRN Reason: Interaction Checking Stop: 09/28/19 03:58 Last Admin: 09/24/19 04:00 Dose: 94 ml Documented by: [id number] Discontinued Medications Dextrose (Dextrose 50%) 100 ml IV NOW STA Stop: 09/23/19 21:51 Last Admin: 09/23/19 22:35 Dose: 100 ml Documented by: [id number] Diphenhydramine HCl (Benadryl) 25 mg IV NOW STA Stop: 09/23/19 19:17 Last Admin: 09/23/19 19:58 Dose: 25 mg Documented by: [id number] Prochlorperazine (Compazine) 2 mls @ 1 mls/min IV ONE ONE Stop: 09/23/19 19:17 Last Admin: 09/23/19 19:58 Dose: 1 mls/min Documented by: [id number] Famotidine (Pepcid 20mg Iv Push) 20 mg in 5 mls @ 2.5 mls/min IV NOW STA Stop: 09/23/19 19:17 Last Admin: 09/23/19 19:58 Dose: 2.5 mls/min Documented by: [id number] Sodium Chloride (Nss 1000ml) 1,000 mls @ 999 mls/hr IV .Q1H1M ONE Stop: 09/23/19 20:17 Last Infusion: 09/23/19 20:51 Dose: 0 mls/hr Documented by: [id number] Admin: 09/23/19 19:58 Dose: 999 mls/hr Documented by: [id number] Calcium Gluconate 2,000 mg/ (Sodium Chloride) 70 mls @ 240 mls/hr IV NOW STA Stop: 09/23/19 22:04 Last Infusion: 09/23/19 22:55 Dose: 0 mls/hr Documented by: [id number] Admin: 09/23/19 22:36 Dose: 240 mls/hr Documented by: [id number] Insulin Human Regular 10 units (/ Syringe) 9.9 mls @ 3 mls/sec IV ONE STA Stop: 09/23/19 21:51 Last Admin: 09/23/19 22:54 Dose: 3 mls/sec Documented by: [id number] Cosigned by: [id number] Ceftriaxone Sodium (Rocephin) 2,000 mg in 70 mls @ 140 mls/hr IV NOW STA Stop: 09/23/19 22:21 Last Infusion: 09/23/19 23:39 Dose: 0 mls/hr Documented by: [id number] Admin: 09/23/19 23:08 Dose: 140 mls/hr Documented by: [id number] Doxycycline Hyclate 100 mg/ (Dextrose) 110 mls @ 50 mls/hr IV NOW STA Stop: 09/24/19 00:03 Last Infusion: 09/24/19 01:20 Dose: 0 mls/hr Documented by: [id number] Admin: 09/23/19 23:08 Dose: 50 mls/hr Documented by: [id number] Blood Pressure Blood Pressure Findings: Low blood pressure Blood Pressure Disposition: further management by hospitalist Discharge Plan Visit Data *Final* Discharge Date/Time: 09/24/19 03:36 Chief Complaint: Cough Stated Complaint: COUGH ED Provider: Robby Moreno Discharge Problem: Pneumonia, Acute on chronic kidney failure, Acute hyperkalemia, Nausea & vomiting Patient Disposition: Admitted As Inpatient Discharge Instructions Interventions: ED Discharge Assessment Last Done: 09/24/19 03:36 Discharge Problem: Pneumonia Qualifiers: Pneumonia type: due to unspecified organism Laterality: bilateral Lung location: lower lobe of lung Qualified Code(s): J18.9 - Pneumonia, unspecified organism Acute on chronic kidney failure Qualifiers: Acute renal failure type: unspecified Chronic kidney disease stage: unspecified stage Qualified Code(s): N17.9 - Acute kidney failure, unspecified Nausea & vomiting Qualifiers: Vomiting type: unspecified Vomiting Intractability: non-intractable Qualified Code(s): R11.2 - Nausea with vomiting, unspecified
--- NOTE | 2019-09-23 20:38 | XRay Report ---
SINGLE VIEW CHEST CLINICAL HISTORY: Atypical chest pain. FINDINGS: An AP, portable, upright chest radiograph is compared to study dated 02/06/2019. The examina tion is degraded by portable technique and patient rotation. The heart is enlarged noting atheroscler otic calcification of the thoracic aorta. The pulmonary vasculature is noncongested. Patchy airspace opacities are present at both lung bases. No large pleural effusion or pneumothorax is seen. The skel etal structures are osteopenic. The bony thorax is grossly intact. Fusion hardware is noted in the lo wer cervical spine and the upper lumbar spine. IMPRESSION: 1. Cardiomegaly without radiographic evidence of congestive failure. 2. Patchy airspace opacities are present at both lung bases. This could represent atelectasis and/or pneumonia/aspiration pneumonitis. Clinical correlation will be required and radiographic follow-up to resolution is recommended. ACT 112: Negative or not required by law. Electronically signed by: Perry Noe M.D. 09/23/2019 8:37 PM
[2019-09-23 21:08] LABS: Influenza A virus by PCR Neg for Influ A (Neg); Influenza B virus by PCR Neg for Influ B (Neg)
[2019-09-23 21:20] LABS: Basophils # (auto) 0.02 K/uL (0-0.2); Basophils % (auto) 0.2 %; Eosinophils # (auto) 0.14 K/uL (0-0.5); Eosinophils % (auto) 1.5 %; Hematocrit (blood only) 38.9 % (42-52); Hemoglobin 12.8 g/dL (14.0-18.0); Immature Granulocytes # (auto) 0.01 K/uL (0.00-0.02); Immature Granulocytes % (auto) 0.1 %; Lymphocytes # (auto) 1.33 K/uL (1.2-3.4); Lymphocytes % (auto) 14.1 %; Mean Corpuscular Hemoglobin 30.8 pg (25-34); Mean Corpuscular Hgb Conc 32.9 g/dL (32-36); Mean Corpuscular Volume 93.7 fL (80-100); Mean Platelet Volume 9.4 fL (7.4-10.4); Monocytes # (auto) 0.84 K/uL (0.11-0.59); Monocytes % (auto) 8.9 %; Neutrophils # (auto) 7.08 K/uL (1.4-6.5); Neutrophils % (auto) 75.2 %; Platelet Count 213 K/uL (130-400); RDW Coefficient of Variation 14.2 % (11.5-14.5); RDW Standard Deviation 48.5 fL (36.4-46.3); Red Blood Count 4.15 M/uL (4.7-6.1); White Blood Count 9.42 K/uL (4.8-10.8)
[2019-09-23 21:27] LABS: Partial Thromboplastin Time 27.5 Seconds (21.0-31.0); Prothrombin Time 10.8 Seconds (9.0-12.0)
[2019-09-23 21:39] LABS: Albumin Level 4.2 gm/dl (3.4-5.0); Calcium 8.6 mg/dl (8.5-10.1); Creatinine Clr Calc Pharmacy 27.8 ml/min; Est GFR (African American) 22.7; Est GFR (Non-African American) 19.6; Magnesium 2.4 mg/dl (1.8-2.4); Potassium 6.5 mmol/L (3.5-5.1)
[2019-09-23 21:43] LABS: Albumin Globulin Ratio 1.2 (0.9-2); Bilirubin Direct 0.1 mg/dl (0-0.2); Bilirubin,Total 0.6 mg/dl (0.2-1); Globulin 3.6 gm/dl (2.5-4.0); Phosphorus 5.9 mg/dl (2.5-4.9); Total Protein 7.8 gm/dl (6.4-8.2)
[2019-09-23] MEDS ORDERED: CALCIUM GLUCONATE 10% 2,000 MG in SODIUM CHLORIDE 0.9% 50 ML IV STA (21:50)
[2019-09-23] MEDS ORDERED: INSULIN HUMAN REGULAR PER UNIT 10 UNITS in SYRINGE 9.9 ML IV STA (21:50)
[2019-09-23] MEDS ORDERED: DEXTROSE 50% 50 ML SYRINGE IV STA (21:50)
[2019-09-23] MEDS ORDERED: DOXYCYCLINE HYCLATE 100 MG in DEXTROSE 5% 100 ML IV STA (21:52)
[2019-09-23] MEDS ORDERED: cefTRIAXone SODIUM 2,000 MG/70 ML BAG IV STA (21:52)
[2019-09-23] MEDS: SODIUM CHLORIDE 0.9% 1000ML 1,000 ML IV SCH (22:36)
[2019-09-24 01:22] LABS: iSTAT Creatinine 2.8 mg/dl (0.6-1.3); iSTAT Hemoglobin 11.9 g/dl (14.0-18.0); iSTAT Ionized Calcium 1.14 mmol/l (1.12-1.32); iSTAT Potassium 5.3 mmol/L (3.3-5.0)
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
[2019-09-24 03:02] LABS: BUN Creatinine Ratio 21.2 (10-20); Calcium 8.4 mg/dl (8.5-10.1); Creatinine Clr Calc Pharmacy 34.1 ml/min; Potassium 5.1 mmol/L (3.5-5.1)
[2019-09-24] MEDS ORDERED: IOVERSOL 100ml IV PRN (03:59)
[2019-09-24] MEDS ORDERED: MAGNESIUM HYDROXIDE SUSP 30 ML UDC PO PRN (04:13)
[2019-09-24] MEDS ORDERED: ONDANSETRON INJ 2 MG/ML 2 ML VIAL IV PRN (04:13)
[2019-09-24] MEDS ORDERED: ALUMINUM/MAGNESIUM SUSP 30 ML UDC PO PRN (04:13)
[2019-09-24] MEDS ORDERED: POLYETHYLENE (MIRALAX) 17 GM PACK PO PRN (04:13)
--- NOTE | 2019-09-24 07:21 | CT Scan Report ---
CT OF THE ABDOMEN AND PELVIS WITH CONTRAST CLINICAL HISTORY: nausea/vomiting COMPARISON STUDY: CT of the abdomen separate 2015. Renal ultrasound September 18, 2019. TECHNIQUE: Following IV administration of 94 mL of Optiray-320, axial images of the abdomen and pelvi s were obtained from the lung bases to the proximal femurs. Images were reviewed in the axial, sagitt al, and coronal planes. IV contrast was administered without complication. Automated exposure contro l was utilized for the study. A dose lowering technique was utilized adhering to the principles of A JOHN. CT DOSE: 1025.31 mGy.cm FINDINGS: Lung bases are unremarkable. Subcentimeter right hepatic dome lesion is benign. The spleen, adrenal glands and pancreas are unremarkable. There is no biliary or pancreatic ductal dilatation. T here is no hydronephrosis. Note is made of a 1.7 cm intermediate attenuation lesion within the intelligence intern ior cortex of the upper pole of the right kidney. Adjacent hypodense lesion represents a cyst. There is no evidence for a bowel obstruction. The appendix is dilated, measuring 9 mm in caliber. There are suspected diverticula of the appendix. No periappendiceal infiltration is noted. There is no abscess or free air. No lymphadenopathy is noted. Central hernia contains a loop of small bowel without resu ltant bowel obstruction. A posterior decompression is noted. Multilevel discectomy is noted. Posterio r fusion from T11 through S1 is noted. The L2 screws have been removed. There is a fracture of the le ft T11 screw. Note is made of lucency adjacent to the T11 screws. IMPRESSION: 1. No acute process within the abdomen or pelvis. 2. Mildly dilated appendix which contains numerous diverticula. No evidence for acute appendicitis or diverticulitis however surgical consultation is recommended for consideration for appendectomy given potential for underlying lesion or complication. 3. 1.7 cm lesion within the posterior cortex of the upper pole pf the right kidney. This could reflec t a small solid renal lesion or hyperdense cyst. Nonemergent MRI of the kidneys is recommended. 4. Status post T11-S1 fusion. Fracture of the left T11 pedicle screw. Lucency adjacent to the T11 scr ews may reflect loosening. ACT 112: Negative or not required by law. Electronically signed by: Issac Vu M.D. 09/24/2019 7:19 AM
[2019-09-24] MEDS: SODIUM CHLORIDE 0.9% 1000ML 1,000 ML IV SCH ×2 (08:13→16:43)
[2019-09-24 09:00] LABS: Appearance Urine Clear (Clear); Bilirubin Urine Negative (Negative); Blood Urine Negative (Negative); Color Urine Yellow; Glucose Urine UA Negative (Negative); Ketones Urine Trace (Negative); Leukocyte Esterase Urine Negative (Negative); Nitrite Urine Negative (Negative); Protein Urine Negative (Negative); Urobilinogen Urine Negative (Negative)
[2019-09-24] MEDS ORDERED: lisinopriL 20 MG TAB PO SCH (09:00)
[2019-09-24 09:42] LABS: Urine Potassium 16.5 mmol/L
[2019-09-24] MEDS ORDERED: GLUCOSE 10 TABS/TUBE PO PRN (09:57)
[2019-09-24] MEDS ORDERED: CARBOHYDRATES FOR HYPOGLYCEMIA PO PRN (09:57)
[2019-09-24] MEDS ORDERED: DEXTROSE 50% 50 ML SYRINGE IV PRN (09:57)
[2019-09-24] MEDS ORDERED: GLUCAGON FOR INJ 1 MG VIAL SQ PRN (09:57)
[2019-09-24] MEDS ORDERED: GLUCOSE 40% GEL 15 GM TUBE PO PRN (09:57)
[2019-09-24] MEDS: diazePAM 5 MG TABLET PO SCH ×2 (12:11→21:27)
[2019-09-24] MEDS: INSULIN ASPART 100 UNITS/ML 3 ML PEN SC SCH ×3 (12:21→20:55)
--- NOTE | 2019-09-24 16:05 | Electrocardiogram Report ---
Test Reason : Blood Pressure : / mmHG Vent. Rate : 084 BPM Atrial Rate : 084 BPM P-R Int : 160 ms QRS Dur : 084 ms QT Int : 378 ms P-R-T Axes : 061 030 044 degrees QTc Int : 446 ms Normal sinus rhythm Normal ECG When compared with ECG of 26-FEB-2019 11:18, No significant change was found Confirmed by Kyaw Guzman ([id number]) on 09/24/2019 4:05:27 PM Referred By: REFERRED SELF Confirmed By:Chaz Guzman
--- NOTE | 2019-09-24 16:06 | Electrocardiogram Report ---
Test Reason : Blood Pressure : / mmHG Vent. Rate : 092 BPM Atrial Rate : 092 BPM P-R Int : 162 ms QRS Dur : 086 ms QT Int : 368 ms P-R-T Axes : 097 017 039 degrees QTc Int : 455 ms Poor data quality, interpretation may be adversely affected Normal sinus rhythm Normal ECG When compared with ECG of 23-SEP-2019 20:06, (unconfirmed) No significant change was found Confirmed by Kyaw Guzman ([id number]) on 09/24/2019 4:06:07 PM Referred By: REFERRED SELF Confirmed By:Chaz Guzman
--- NOTE | 2019-09-24 18:20 | Family Medicine Progress Note ---
Date of Service September 24, 2019 Assessment & Plan (1) Nausea & vomitin-year-old male was admitted on 24 Sep 2019 for acute nausea and vomiting over 24 hours. Nausea and vomiting: Patient notes his acute N/V has resolved since his admission. He has some mild right flank pain but no anterior abdominal pain. Afebrile. WBC 9. Lipase normal. Has not needed Zofran prn yet. Monitoring. Acute on chronic CKD: Initial Cr 3.12, BUN 59. Baseline Cr perhaps 1.6. FeNa 3% (intrinsic). Notes he has been voiding well all day today. - Providing hydration. Recheck labs in AM. Also will check a post-void bladder scan. Given level of electrolyte issues, may need nephrology consult. Airspace opacities: pCXR noted bilateral lung base patchy opacities. COVID- negative. Blood cultures sent. Given recent reported vomiting, perhaps has some aspiration pneumonitis. Symptomatically, he has no cough, fever, or leukocytosis suggesting infection. Lungs are clear to auscultation. - In ED, treated with single doses of ceftriaxone and doxycycline. - Will recheck CXR in AM. Lab issues: - Hyponatremia: Admit Na 131. Trace urine ketones. Perhaps a bit dehydrated. Provided IVF, recheck in AM. - Hyperkalemia: Initial K 6.5. Initial EKG okay. In ED, treated with calcium, insulin, IVF. Recheck down to 5.1. --- Combo of low Na and high K includes DDx Odilon disease. Will check AM cortisol level. - Hyperphosphatemia: Admit phos 5.9. Unclear source, DDx includes rhabdo vs acute / chronic kidney disease vs hypoparathyroidism. --- Recheck in AM. May need a phosphate binder. Ordered PTH as well. - Elevated CK: Admit CK 521. DDx includes dehydration vs rhabdo. Providing IVF, recheck in AM. - Elevated AP: Admit AP 154. Remaining LFTs normal. No abdominal pain or RUQ ttp. Recheck in AM. Anemia: Admit hemoglobin 12.8, MCV 94. No evidence of acute bleeding. Appendix diverticula: Noted on CT a/p. No present RLQ pain or tenderness on exam. - Will consult surgery to help determine if/when he would need an appendectomy. Right kidney lesion: 1.[address] a/p. Radiology recommended non-emergent kidney MRI. Ongoing medical history: - HTN, HLD: On home rosuvastatin. Hold his home lisinopril. - DM2: September 2019 HbA1c 5.6. At home is on metformin. On insulin sliding scale here. - Spinal stenosis: PSH T11-S1 fusion. See neurology in the past. CT a/p noted fracture of left T11 pedicle screw, possible loosening. Can follow up with his surgeon as an outpatient. - Chronic pain syndrome, chronic benzodiazepine use: On home scheduled Valium. - PMH prostate cancer: History of prostatectomy 2016. - Hepatitis C: Patient says has been in remission for 5 to 10 years. - Anxiety, depression: Continue home paroxetine 60 mg. - Gout: At home, takes colchicine prn, none recently. - Alcohol dependence: Admit ethanol negative. Patient says last drink a couple weeks ago. - PMH difficult intubation. Code status: Full code. Diet: Diabetic diet. On NS at 80 mL/hr. DVT prophy: Heparin and SCDs. PT/OT: Ordered. Disbo: Admitted to [facility] with telemetry. Lives at home alone. (2) Acute on chronic kidney failure: (3) Aspiration pneumonia: (4) Hyponatremia: (5) Hyperkalemia: (6) Hyperphosphatemia: (7) Elevated creatine kinase level: (8) Elevated alkaline phosphatase level: (9) Anemia: (10) Diverticula, appendix: (11) Lesion of right [place] kidney: (12) Hypertension: (13) Hyperlipidemia: (14) Spinal stenosis, lumbar region with neurogenic claudication: (15) Gout: (16) Alcohol dependence: (17) History of difficult intubation: Admission and Anticipated Discharge Date Admission Date: September 24, 2019 Supervising Physician Co-Signing Physician Notes I personally examined the patient and verified all guerrero points of history and exam, discussed case, and agree with decision making with Dr. Ferreira with the following additions/exceptions: Pt feeling much better nd is anxious to get home again hopefully tomorrow. He is making a lot of urine today. Denies any further N/V and is eating. He denies abd pain. Vitals reviewed NAD, AAOx3 Slight tremor in hands RRR no mgr CTAB no wcr Ext no edema Tele with NSR 69 yo male here with N/V, JACK. Much improved Continue IVFs Follow BMP Likely dc to home tomorrow Subjective Found patient lying very comfortably in bed. Overall he says he feels better than yesterday. - Patient notes his prior nausea and vomiting previously came "out of the blue". Presently, says his nausea has resolved and he has not thrown up at all overnight. Never had any diarrhea. Had a bowel movement yesterday. Presently denies any abdominal pain. - When asked about his overall nutrition, he says he eats regularly. He often will not eat full meals or 3 meals a day. Does not clarify why this is the case. - Only presents noted pain is chronic low back pain. - When asked about urinary symptoms, he says over the past couple of weeks he has had to "push" more to void. Denies any dysuria or known hematuria. Denies any suprapubic discomfort. Does note some right flank pain. He says that he was seen by his primary care provider, an ultrasound for this, and was told it was normal. - On review of systems, denies any chest pain or shortness of breath. Says on occasion he has a cough productive of phlegm. Review of Systems Review of Systems: Per HPI as above. Physical Exam Physical Exam: General Appearance: Awake, alert & oriented, comfortable in general, NAD. CV: +S1S2 RRR, no murmur. Pulm: Clear to auscultation throughout. No present cough. Abdomen: +BS, soft, non-tender, non-distended. Has a self-reducible midline incisional hernia. Extremities: No pedal edema or calf tenderness. Moving all extremities naturally and easily. He has a healed scar over his left second digit following surgery. Neuro: No resting tremor, though upon sitting up he has a bilateral upper extremity and almost whole body tremor. Results & Data ([facility]) Vital Signs (Past 12 Hours) Vital Signs Temp Pulse Pulse Resp BP Pulse Ox 09/24/19 16:26 36.9 C 72 17 108/70 93 09/24/19 08:00 72 09/24/19 07:42 36.9 C 76 18 104/68 95 Laboratory Results 09/24/19 09/24/19 09/24/19 Range/Units 16:48 12:07 08:00 WBC RBC Hgb POC Hgb (14.0-18.0) g/dl Hct POC Hct (42-52) % MCV MCH MCHC RDW Std Deviation RDW Coeff of Diana Plt Count MPV Immature Gran % (Auto) Neut % (Auto) Lymph % (Auto) [place] % (Auto) Eos % (Auto) Baso % (Auto) Immature Gran # (Auto) Neut # (Auto) Lymph # (Auto) [place] # (Auto) Eos # (Auto) Baso # (Auto) Absolute Nucleated RBC Nucleated RBC % (auto) Neutrophils % (Manual) Band Neutrophils % Lymphocytes % (Manual) Prolymphocyte % Reactive Lymphs % (Man) Monocytes % (Manual) Eosinophils % (Manual) Basophils % (Manual) Metamyelocytes % (Man) Myelocytes % (Man) Promyelocytes % (Man) Blast Cells % (Manual) Plasma Cell % (Manual) Other Cells % Nucleated RBC % Neutrophils # (Manual) Band Neutrophils # Total Absolute Neuts Lymphocytes # (Manual) Prolymphocyte # Reactive Lymphs # Total Abs Lymphocytes Monocytes # (Manual) Eosinophils # (Manual) Basophils # (Manual) Metamyelocytes # (Man) Myelocytes # (Manual) Promyelocytes # (Man) Blast Cells # (Man) Plasma Cell # (Manual) Other Cells # Nucleated RBCs # (Man) Hypersegmented Neuts Hyposegmented Neuts Hypogranular Neuts Large Granular Lymphs # Lrg Granular Lymphs Hairy Cells Smudge Cells Toxic Granulation Toxic Vacuolation Dohle Bodies Yordy Rods Platelet Estimate Hypogranular Platelets Clumped Platelets Giant Platelets Platelet Satelliting RBC Morphology Polychromasia Hypochromasia Poikilocytosis Basophilic Stippling Anisocytosis Microcytosis Macrocytosis Spherocytes Pappenheimer Bodies Sickle Cells Target Cells Tear Drop Cells Ovalocytes Stomatocytes [place] Bodies Echinocytes Acanthocytes (Spur) Rouleaux RBC Agglutinates Schistocytes RBC Morph Comment Sezary Cell PT INR APTT PTT Ratio POC Sodium (135-144) mmol/L Sodium POC Potassium (3.3-5.0) mmol/L Potassium POC Chloride (101-112) mmol/L Chloride Carbon Dioxide POC Total CO2 (24-31) mmol/L Anion Gap POC Anion Gap (16-25) mmol/L POC BUN (7-18) mg/dl BUN Creatinine POC Creatinine (0.6-1.3) mg/dl Est Cr Clr Drug Dosing Est GFR ( Amer) Est GFR (Non-Af Amer) BUN/Creatinine Ratio Glucose POC Glucose 107 H 88 (70-99) mg/dl POC Glucose (other) (70-99) mg/dl Lactate (0.4-2.0) mmol/L Calcium POC Ioniz Calcium Steffen (1.12-1.32) mmol/l Phosphorus Magnesium Total Bilirubin Direct Bilirubin AST ALT Alkaline Phosphatase Total Creatine Kinase (39-308) U/L Troponin I Total Protein Albumin Globulin Albumin/Globulin Ratio Lipase TSH Urine Color Urine Appearance (Clear) Urine pH (4.5-7.5) Ur Specific [place] (1.000-1.030) Urine Protein (Negative) Urine Glucose (UA) (Negative) Urine Ketones (Negative) Urine Blood (Negative) Urine Nitrite (Negative) Urine Bilirubin (Negative) Urine Urobilinogen (Negative) Ur Leukocyte Esterase (Negative) Ur Random Creatinine 38.0 mg/dl Urine Sodium 59 mmol/L Urine Potassium 16.5 mmol/L Urine Chloride 52 mmol/L Ethyl Alcohol mg/dL COVID-19 PCR (Negative) Influenza Type A (PCR) (Neg) Influenza Type B (PCR) (Neg) 09/24/19 09/24/19 09/24/19 Range/Units 08:00 04:35 02:06 WBC RBC Hgb POC Hgb (14.0-18.0) g/dl Hct POC Hct (42-52) % MCV MCH MCHC RDW Std Deviation RDW Coeff of Diana Plt Count MPV Immature Gran % (Auto) Neut % (Auto) Lymph % (Auto) [place] % (Auto) Eos % (Auto) Baso % (Auto) Immature Gran # (Auto) Neut # (Auto) Lymph # (Auto) [place] # (Auto) Eos # (Auto) Baso # (Auto) Absolute Nucleated RBC Nucleated RBC % (auto) Neutrophils % (Manual) Band Neutrophils % Lymphocytes % (Manual) Prolymphocyte % Reactive Lymphs % (Man) Monocytes % (Manual) Eosinophils % (Manual) Basophils % (Manual) Metamyelocytes % (Man) Myelocytes % (Man) Promyelocytes % (Man) Blast Cells % (Manual) Plasma Cell % (Manual) Other Cells % Nucleated RBC % Neutrophils # (Manual) Band Neutrophils # Total Absolute Neuts Lymphocytes # (Manual) Prolymphocyte # Reactive Lymphs # Total Abs Lymphocytes Monocytes # (Manual) Eosinophils # (Manual) Basophils # (Manual) Metamyelocytes # (Man) Myelocytes # (Manual) Promyelocytes # (Man) Blast Cells # (Man) Plasma Cell # (Manual) Other Cells # Nucleated RBCs # (Man) Hypersegmented Neuts Hyposegmented Neuts Hypogranular Neuts Large Granular Lymphs # Lrg Granular Lymphs Hairy Cells Smudge Cells Toxic Granulation Toxic Vacuolation Dohle Bodies Yordy Rods Platelet Estimate Hypogranular Platelets Clumped Platelets Giant Platelets Platelet Satelliting RBC Morphology Polychromasia Hypochromasia Poikilocytosis Basophilic Stippling Anisocytosis Microcytosis Macrocytosis Spherocytes Pappenheimer Bodies Sickle Cells Target Cells Tear Drop Cells Ovalocytes Stomatocytes [place] Bodies Echinocytes Acanthocytes (Spur) Rouleaux RBC Agglutinates Schistocytes RBC Morph Comment Sezary Cell PT INR APTT PTT Ratio POC Sodium (135-144) mmol/L Sodium 133 L POC Potassium (3.3-5.0) mmol/L Potassium 5.1 D POC Chloride (101-112) mmol/L Chloride 100 Carbon Dioxide 23 POC Total CO2 (24-31) mmol/L Anion Gap 10.0 POC Anion Gap (16-25) mmol/L POC BUN (7-18) mg/dl BUN 54 H Creatinine 2.55 H D POC Creatinine (0.6-1.3) mg/dl Est Cr Clr Drug Dosing 34.1 Est GFR ( Amer) 29.0 Est GFR (Non-Af Amer) 25.0 BUN/Creatinine Ratio 21.2 H Glucose 97 POC Glucose 92 (70-99) mg/dl POC Glucose (other) (70-99) mg/dl Lactate (0.4-2.0) mmol/L Calcium 8.4 L POC Ioniz Calcium Steffen (1.12-1.32) mmol/l Phosphorus Magnesium Total Bilirubin Direct Bilirubin AST ALT Alkaline Phosphatase Total Creatine Kinase 521 H (39-308) U/L Troponin I Total Protein Albumin Globulin Albumin/Globulin Ratio Lipase TSH Urine Color Yellow Urine Appearance Clear (Clear) Urine pH 5.0 (4.5-7.5) Ur Specific [place] 1.020 (1.000-1.030) Urine Protein Negative (Negative) Urine Glucose (UA) Negative (Negative) Urine Ketones Trace H (Negative) Urine Blood Negative (Negative) Urine Nitrite Negative (Negative) Urine Bilirubin Negative (Negative) Urine Urobilinogen Negative (Negative) Ur Leukocyte Esterase Negative (Negative) Ur Random Creatinine mg/dl Urine Sodium mmol/L Urine Potassium mmol/L Urine Chloride mmol/L Ethyl Alcohol mg/dL COVID-19 PCR (Negative) Influenza Type A (PCR) (Neg) Influenza Type B (PCR) (Neg) 09/24/19 09/24/19 09/23/19 Range/Units 01:09 00:40 23:01 WBC RBC Hgb POC Hgb 11.9 L (14.0-18.0) g/dl Hct POC Hct 35 L (42-52) % MCV MCH MCHC RDW Std Deviation RDW Coeff of Diana Plt Count MPV Immature Gran % (Auto) Neut % (Auto) Lymph % (Auto) [place] % (Auto) Eos % (Auto) Baso % (Auto) Immature Gran # (Auto) Neut # (Auto) Lymph # (Auto) [place] # (Auto) Eos # (Auto) Baso # (Auto) Absolute Nucleated RBC Nucleated RBC % (auto) Neutrophils % (Manual) Band Neutrophils % Lymphocytes % (Manual) Prolymphocyte % Reactive Lymphs % (Man) Monocytes % (Manual) Eosinophils % (Manual) Basophils % (Manual) Metamyelocytes % (Man) Myelocytes % (Man) Promyelocytes % (Man) Blast Cells % (Manual) Plasma Cell % (Manual) Other Cells % Nucleated RBC % Neutrophils # (Manual) Band Neutrophils # Total Absolute Neuts Lymphocytes # (Manual) Prolymphocyte # Reactive Lymphs # Total Abs Lymphocytes Monocytes # (Manual) Eosinophils # (Manual) Basophils # (Manual) Metamyelocytes # (Man) Myelocytes # (Manual) Promyelocytes # (Man) Blast Cells # (Man) Plasma Cell # (Manual) Other Cells # Nucleated RBCs # (Man) Hypersegmented Neuts Hyposegmented Neuts Hypogranular Neuts Large Granular Lymphs # Lrg Granular Lymphs Hairy Cells Smudge Cells Toxic Granulation Toxic Vacuolation Dohle Bodies Yordy Rods Platelet Estimate Hypogranular Platelets Clumped Platelets Giant Platelets Platelet Satelliting RBC Morphology Polychromasia Hypochromasia Poikilocytosis Basophilic Stippling Anisocytosis Microcytosis Macrocytosis Spherocytes Pappenheimer Bodies Sickle Cells Target Cells Tear Drop Cells Ovalocytes Stomatocytes [place] Bodies Echinocytes Acanthocytes (Spur) Rouleaux RBC Agglutinates Schistocytes RBC Morph Comment Sezary Cell PT INR APTT PTT Ratio POC Sodium 131 L (135-144) mmol/L Sodium POC Potassium 5.3 H (3.3-5.0) mmol/L Potassium POC Chloride 98 L (101-112) mmol/L Chloride Carbon Dioxide POC Total CO2 23 L (24-31) mmol/L Anion Gap POC Anion Gap 16.0 (16-25) mmol/L POC BUN 65 H (7-18) mg/dl BUN Creatinine POC Creatinine 2.8 H (0.6-1.3) mg/dl Est Cr Clr Drug Dosing Est GFR ( Amer) Est GFR (Non-Af Amer) BUN/Creatinine Ratio Glucose POC Glucose 75 (70-99) mg/dl POC Glucose (other) 92 (70-99) mg/dl Lactate 1.0 (0.4-2.0) mmol/L Calcium POC Ioniz Calcium Steffen 1.14 (1.12-1.32) mmol/l Phosphorus Magnesium Total Bilirubin Direct Bilirubin AST ALT Alkaline Phosphatase Total Creatine Kinase (39-308) U/L Troponin I Total Protein Albumin Globulin Albumin/Globulin Ratio Lipase TSH Urine Color Urine Appearance (Clear) Urine pH (4.5-7.5) Ur Specific [place] (1.000-1.030) Urine Protein (Negative) Urine Glucose (UA) (Negative) Urine Ketones (Negative) Urine Blood (Negative) Urine Nitrite (Negative) Urine Bilirubin (Negative) Urine Urobilinogen (Negative) Ur Leukocyte Esterase (Negative) Ur Random Creatinine mg/dl Urine Sodium mmol/L Urine Potassium mmol/L Urine Chloride mmol/L Ethyl Alcohol mg/dL COVID-19 PCR (Negative) Influenza Type A (PCR) (Neg) Influenza Type B (PCR) (Neg) 09/23/19 09/23/19 09/23/19 Range/Units 21:15 21:15 21:15 WBC RBC Hgb POC Hgb (14.0-18.0) g/dl Hct POC Hct (42-52) % MCV MCH MCHC RDW Std Deviation RDW Coeff of Diana Plt Count MPV Immature Gran % (Auto) Neut % (Auto) Lymph % (Auto) [place] % (Auto) Eos % (Auto) Baso % (Auto) Immature Gran # (Auto) Neut # (Auto) Lymph # (Auto) [place] # (Auto) Eos # (Auto) Baso # (Auto) Absolute Nucleated RBC Nucleated RBC % (auto) Neutrophils % (Manual) Band Neutrophils % Lymphocytes % (Manual) Prolymphocyte % Reactive Lymphs % (Man) Monocytes % (Manual) Eosinophils % (Manual) Basophils % (Manual) Metamyelocytes % (Man) Myelocytes % (Man) Promyelocytes % (Man) Blast Cells % (Manual) Plasma Cell % (Manual) Other Cells % Nucleated RBC % Neutrophils # (Manual) Band Neutrophils # Total Absolute Neuts Lymphocytes # (Manual) Prolymphocyte # Reactive Lymphs # Total Abs Lymphocytes Monocytes # (Manual) Eosinophils # (Manual) Basophils # (Manual) Metamyelocytes # (Man) Myelocytes # (Manual) Promyelocytes # (Man) Blast Cells # (Man) Plasma Cell # (Manual) Other Cells # Nucleated RBCs # (Man) Hypersegmented Neuts Hyposegmented Neuts Hypogranular Neuts Large Granular Lymphs # Lrg Granular Lymphs Hairy Cells Smudge Cells Toxic Granulation Toxic Vacuolation Dohle Bodies Yordy Rods Platelet Estimate Hypogranular Platelets Clumped Platelets Giant Platelets Platelet Satelliting RBC Morphology Polychromasia Hypochromasia Poikilocytosis Basophilic Stippling Anisocytosis Microcytosis Macrocytosis Spherocytes Pappenheimer Bodies Sickle Cells Target Cells Tear Drop Cells Ovalocytes Stomatocytes [place] Bodies Echinocytes Acanthocytes (Spur) Rouleaux RBC Agglutinates Schistocytes RBC Morph Comment Sezary Cell PT 10.8 INR 1.0 APTT 27.5 PTT Ratio 1.0 POC Sodium (135-144) mmol/L Sodium 131 L POC Potassium (3.3-5.0) mmol/L Potassium 6.5 H* POC Chloride (101-112) mmol/L Chloride 97 L Carbon Dioxide 24 POC Total CO2 (24-31) mmol/L Anion Gap 11.0 POC Anion Gap (16-25) mmol/L POC BUN (7-18) mg/dl BUN 59 H Creatinine 3.12 H POC Creatinine (0.6-1.3) mg/dl Est Cr Clr Drug Dosing 27.8 Est GFR ( Amer) 22.7 Est GFR (Non-Af Amer) 19.6 BUN/Creatinine Ratio 19.0 Glucose 83 POC Glucose (70-99) mg/dl POC Glucose (other) (70-99) mg/dl Lactate (0.4-2.0) mmol/L Calcium 8.6 POC Ioniz Calcium Steffen (1.12-1.32) mmol/l Phosphorus 5.9 H Magnesium 2.4 Total Bilirubin 0.6 Direct Bilirubin 0.1 AST 32 ALT 26 Alkaline Phosphatase 154 H Total Creatine Kinase (39-308) U/L Troponin I Total Protein 7.8 Albumin 4.2 Globulin 3.6 Albumin/Globulin Ratio 1.2 Lipase 78 TSH Urine Color Urine Appearance (Clear) Urine pH (4.5-7.5) Ur Specific [place] (1.000-1.030) Urine Protein (Negative) Urine Glucose (UA) (Negative) Urine Ketones (Negative) Urine Blood (Negative) Urine Nitrite (Negative) Urine Bilirubin (Negative) Urine Urobilinogen (Negative) Ur Leukocyte Esterase (Negative) Ur Random Creatinine mg/dl Urine Sodium mmol/L Urine Potassium mmol/L Urine Chloride mmol/L Ethyl Alcohol mg/dL < 3.0 COVID-19 PCR (Negative) Influenza Type A (PCR) (Neg) Influenza Type B (PCR) (Neg) 09/23/19 09/23/19 09/23/19 Range/Units 21:15 20:50 20:30 WBC 9.42 RBC 4.15 L Hgb 12.8 L POC Hgb (14.0-18.0) g/dl Hct 38.9 L POC Hct (42-52) % MCV 93.7 MCH 30.8 MCHC 32.9 RDW Std Deviation 48.5 H RDW Coeff of Diana 14.2 Plt Count 213 MPV 9.4 Immature Gran % (Auto) 0.1 Neut % (Auto) 75.2 Lymph % (Auto) 14.1 [place] % (Auto) 8.9 Eos % (Auto) 1.5 Baso % (Auto) 0.2 Immature Gran # (Auto) 0.01 Neut # (Auto) 7.08 H Lymph # (Auto) 1.33 [place] # (Auto) 0.84 H Eos # (Auto) 0.14 Baso # (Auto) 0.02 Absolute Nucleated RBC Nucleated RBC % (auto) Neutrophils % (Manual) Band Neutrophils % Lymphocytes % (Manual) Prolymphocyte % Reactive Lymphs % (Man) Monocytes % (Manual) Eosinophils % (Manual) Basophils % (Manual) Metamyelocytes % (Man) Myelocytes % (Man) Promyelocytes % (Man) Blast Cells % (Manual) Plasma Cell % (Manual) Other Cells % Nucleated RBC % Neutrophils # (Manual) Band Neutrophils # Total Absolute Neuts Lymphocytes # (Manual) Prolymphocyte # Reactive Lymphs # Total Abs Lymphocytes Monocytes # (Manual) Eosinophils # (Manual) Basophils # (Manual) Metamyelocytes # (Man) Myelocytes # (Manual) Promyelocytes # (Man) Blast Cells # (Man) Plasma Cell # (Manual) Other Cells # Nucleated RBCs # (Man) Hypersegmented Neuts Hyposegmented Neuts Hypogranular Neuts Large Granular Lymphs # Lrg Granular Lymphs Hairy Cells Smudge Cells Toxic Granulation Toxic Vacuolation Dohle Bodies Yordy Rods Platelet Estimate Hypogranular Platelets Clumped Platelets Giant Platelets Platelet Satelliting RBC Morphology Polychromasia Hypochromasia Poikilocytosis Basophilic Stippling Anisocytosis Microcytosis Macrocytosis Spherocytes Pappenheimer Bodies Sickle Cells Target Cells Tear Drop Cells Ovalocytes Stomatocytes [place] Bodies Echinocytes Acanthocytes (Spur) Rouleaux RBC Agglutinates Schistocytes RBC Morph Comment Sezary Cell PT INR APTT PTT Ratio POC Sodium (135-144) mmol/L Sodium POC Potassium (3.3-5.0) mmol/L Potassium POC Chloride (101-112) mmol/L Chloride Carbon Dioxide POC Total CO2 (24-31) mmol/L Anion Gap POC Anion Gap (16-25) mmol/L POC BUN (7-18) mg/dl BUN Creatinine POC Creatinine (0.6-1.3) mg/dl Est Cr Clr Drug Dosing Est GFR ( Amer) Est GFR (Non-Af Amer) BUN/Creatinine Ratio Glucose POC Glucose (70-99) mg/dl POC Glucose (other) (70-99) mg/dl Lactate (0.4-2.0) mmol/L Calcium POC Ioniz Calcium Steffen (1.12-1.32) mmol/l Phosphorus Magnesium Total Bilirubin Direct Bilirubin AST ALT Alkaline Phosphatase Total Creatine Kinase (39-308) U/L Troponin I Total Protein Albumin Globulin Albumin/Globulin Ratio Lipase TSH Urine Color Urine Appearance (Clear) Urine pH (4.5-7.5) Ur Specific [place] (1.000-1.030) Urine Protein (Negative) Urine Glucose (UA) (Negative) Urine Ketones (Negative) Urine Blood (Negative) Urine Nitrite (Negative) Urine Bilirubin (Negative) Urine Urobilinogen (Negative) Ur Leukocyte Esterase (Negative) Ur Random Creatinine mg/dl Urine Sodium mmol/L Urine Potassium mmol/L Urine Chloride mmol/L Ethyl Alcohol mg/dL Cancelled COVID-19 PCR NEGATIVE (Negative) Influenza Type A (PCR) (Neg) Influenza Type B (PCR) (Neg) 09/23/19 09/23/19 09/23/19 Range/Units 20:30 20:30 20:30 WBC Cancelled RBC Cancelled Hgb Cancelled POC Hgb (14.0-18.0) g/dl Hct Cancelled POC Hct (42-52) % MCV Cancelled MCH Cancelled MCHC Cancelled RDW Std Deviation Cancelled RDW Coeff of Diana Cancelled Plt Count Cancelled MPV Cancelled Immature Gran % (Auto) Cancelled Neut % (Auto) Cancelled Lymph % (Auto) Cancelled [place] % (Auto) Cancelled Eos % (Auto) Cancelled Baso % (Auto) Cancelled Immature Gran # (Auto) Cancelled Neut # (Auto) Cancelled Lymph # (Auto) Cancelled [place] # (Auto) Cancelled Eos # (Auto) Cancelled Baso # (Auto) Cancelled Absolute Nucleated RBC Cancelled Nucleated RBC % (auto) Cancelled Neutrophils % (Manual) Cancelled Band Neutrophils % Cancelled Lymphocytes % (Manual) Cancelled Prolymphocyte % Cancelled Reactive Lymphs % (Man) Cancelled Monocytes % (Manual) Cancelled Eosinophils % (Manual) Cancelled Basophils % (Manual) Cancelled Metamyelocytes % (Man) Cancelled Myelocytes % (Man) Cancelled Promyelocytes % (Man) Cancelled Blast Cells % (Manual) Cancelled Plasma Cell % (Manual) Cancelled Other Cells % Cancelled Nucleated RBC % Cancelled Neutrophils # (Manual) Cancelled Band Neutrophils # Cancelled Total Absolute Neuts Cancelled Lymphocytes # (Manual) Cancelled Prolymphocyte # Cancelled Reactive Lymphs # Cancelled Total Abs Lymphocytes Cancelled Monocytes # (Manual) Cancelled Eosinophils # (Manual) Cancelled Basophils # (Manual) Cancelled Metamyelocytes # (Man) Cancelled Myelocytes # (Manual) Cancelled Promyelocytes # (Man) Cancelled Blast Cells # (Man) Cancelled Plasma Cell # (Manual) Cancelled Other Cells # Cancelled Nucleated RBCs # (Man) Cancelled Hypersegmented Neuts Cancelled Hyposegmented Neuts Cancelled Hypogranular Neuts Cancelled Large Granular Lymphs Cancelled # Lrg Granular Lymphs Cancelled Hairy Cells Cancelled Smudge Cells Cancelled Toxic Granulation Cancelled Toxic Vacuolation Cancelled Dohle Bodies Cancelled Yordy Rods Cancelled Platelet Estimate Cancelled Hypogranular Platelets Cancelled Clumped Platelets Cancelled Giant Platelets Cancelled Platelet Satelliting Cancelled RBC Morphology Cancelled Polychromasia Cancelled Hypochromasia Cancelled Poikilocytosis Cancelled Basophilic Stippling Cancelled Anisocytosis Cancelled Microcytosis Cancelled Macrocytosis Cancelled Spherocytes Cancelled Pappenheimer Bodies Cancelled Sickle Cells Cancelled Target Cells Cancelled Tear Drop Cells Cancelled Ovalocytes Cancelled Stomatocytes Cancelled [place] Bodies Cancelled Echinocytes Cancelled Acanthocytes (Spur) Cancelled Rouleaux Cancelled RBC Agglutinates Cancelled Schistocytes Cancelled RBC Morph Comment Cancelled Sezary Cell Cancelled PT Cancelled INR Cancelled APTT Cancelled PTT Ratio Cancelled POC Sodium (135-144) mmol/L Sodium Cancelled POC Potassium (3.3-5.0) mmol/L Potassium Cancelled POC Chloride (101-112) mmol/L Chloride Cancelled Carbon Dioxide Cancelled POC Total CO2 (24-31) mmol/L Anion Gap Cancelled POC Anion Gap (16-25) mmol/L POC BUN (7-18) mg/dl BUN Cancelled Creatinine Cancelled POC Creatinine (0.6-1.3) mg/dl Est Cr Clr Drug Dosing Cancelled Est GFR ( Amer) Cancelled Est GFR (Non-Af Amer) Cancelled BUN/Creatinine Ratio Cancelled Glucose Cancelled POC Glucose (70-99) mg/dl POC Glucose (other) (70-99) mg/dl Lactate (0.4-2.0) mmol/L Calcium Cancelled POC Ioniz Calcium Steffen (1.12-1.32) mmol/l Phosphorus Cancelled Magnesium Cancelled Total Bilirubin Cancelled Direct Bilirubin Cancelled AST Cancelled ALT Cancelled Alkaline Phosphatase Cancelled Total Creatine Kinase (39-308) U/L Troponin I Cancelled Total Protein Cancelled Albumin Cancelled Globulin Cancelled Albumin/Globulin Ratio Cancelled Lipase Cancelled TSH Cancelled Urine Color Urine Appearance (Clear) Urine pH (4.5-7.5) Ur Specific [place] (1.000-1.030) Urine Protein (Negative) Urine Glucose (UA) (Negative) Urine Ketones (Negative) Urine Blood (Negative) Urine Nitrite (Negative) Urine Bilirubin (Negative) Urine Urobilinogen (Negative) Ur Leukocyte Esterase (Negative) Ur Random Creatinine mg/dl Urine Sodium mmol/L Urine Potassium mmol/L Urine Chloride mmol/L Ethyl Alcohol mg/dL COVID-19 PCR (Negative) Influenza Type A (PCR) (Neg) Influenza Type B (PCR) (Neg) 09/23/19 Range/Units 20:00 WBC RBC Hgb POC Hgb (14.0-18.0) g/dl Hct POC Hct (42-52) % MCV MCH MCHC RDW Std Deviation RDW Coeff of Diana Plt Count MPV Immature Gran % (Auto) Neut % (Auto) Lymph % (Auto) [place] % (Auto) Eos % (Auto) Baso % (Auto) Immature Gran # (Auto) Neut # (Auto) Lymph # (Auto) [place] # (Auto) Eos # (Auto) Baso # (Auto) Absolute Nucleated RBC Nucleated RBC % (auto) Neutrophils % (Manual) Band Neutrophils % Lymphocytes % (Manual) Prolymphocyte % Reactive Lymphs % (Man) Monocytes % (Manual) Eosinophils % (Manual) Basophils % (Manual) Metamyelocytes % (Man) Myelocytes % (Man) Promyelocytes % (Man) Blast Cells % (Manual) Plasma Cell % (Manual) Other Cells % Nucleated RBC % Neutrophils # (Manual) Band Neutrophils # Total Absolute Neuts Lymphocytes # (Manual) Prolymphocyte # Reactive Lymphs # Total Abs Lymphocytes Monocytes # (Manual) Eosinophils # (Manual) Basophils # (Manual) Metamyelocytes # (Man) Myelocytes # (Manual) Promyelocytes # (Man) Blast Cells # (Man) Plasma Cell # (Manual) Other Cells # Nucleated RBCs # (Man) Hypersegmented Neuts Hyposegmented Neuts Hypogranular Neuts Large Granular Lymphs # Lrg Granular Lymphs Hairy Cells Smudge Cells Toxic Granulation Toxic Vacuolation Dohle Bodies Yordy Rods Platelet Estimate Hypogranular Platelets Clumped Platelets Giant Platelets Platelet Satelliting RBC Morphology Polychromasia Hypochromasia Poikilocytosis Basophilic Stippling Anisocytosis Microcytosis Macrocytosis Spherocytes Pappenheimer Bodies Sickle Cells Target Cells Tear Drop Cells Ovalocytes Stomatocytes [place] Bodies Echinocytes Acanthocytes (Spur) Rouleaux RBC Agglutinates Schistocytes RBC Morph Comment Sezary Cell PT INR APTT PTT Ratio POC Sodium (135-144) mmol/L Sodium POC Potassium (3.3-5.0) mmol/L Potassium POC Chloride (101-112) mmol/L Chloride Carbon Dioxide POC Total CO2 (24-31) mmol/L Anion Gap POC Anion Gap (16-25) mmol/L POC BUN (7-18) mg/dl BUN Creatinine POC Creatinine (0.6-1.3) mg/dl Est Cr Clr Drug Dosing Est GFR ( Amer) Est GFR (Non-Af Amer) BUN/Creatinine Ratio Glucose POC Glucose (70-99) mg/dl POC Glucose (other) (70-99) mg/dl Lactate (0.4-2.0) mmol/L Calcium POC Ioniz Calcium Steffen (1.12-1.32) mmol/l Phosphorus Magnesium Total Bilirubin Direct Bilirubin AST ALT Alkaline Phosphatase Total Creatine Kinase (39-308) U/L Troponin I Total Protein Albumin Globulin Albumin/Globulin Ratio Lipase TSH Urine Color Urine Appearance (Clear) Urine pH (4.5-7.5) Ur Specific [place] (1.000-1.030) Urine Protein (Negative) Urine Glucose (UA) (Negative) Urine Ketones (Negative) Urine Blood (Negative) Urine Nitrite (Negative) Urine Bilirubin (Negative) Urine Urobilinogen (Negative) Ur Leukocyte Esterase (Negative) Ur Random Creatinine mg/dl Urine Sodium mmol/L Urine Potassium mmol/L Urine Chloride mmol/L Ethyl Alcohol mg/dL COVID-19 PCR (Negative) Influenza Type A (PCR) Neg for Influ A (Neg) Influenza Type B (PCR) Neg for Influ B (Neg) Medications Administered Current Inpatient Medications Al Hydrox/Mg Hydrox/Simethicone (Maalox) 30 ml PO Q6H PRN PRN Reason: Dyspepsia Stop: 10/24/19 04:12 Dextrose (Dextrose 50%) 25 - 50 ml IV UD PRN; Protocol PRN Reason: Hypoglycemia Protocol Stop: 10/24/19 09:56 Diazepam (Valium) 5 mg PO BID JORJE Stop: 10/24/19 08:59 Last Admin: 09/24/19 12:11 Dose: 5 mg Documented by: Glucagon (Glucagen) 1 mg SQ UD PRN; Protocol PRN Reason: Hypoglycemia Protocol Stop: 10/24/19 09:56 Glucose (Dex4 Glucose) 4 - 8 tabs PO UD PRN; Protocol PRN Reason: Hypoglycemia Protocol Stop: 10/24/19 09:56 Glucose (Glucose 40%) 15 - 30 gm PO UD PRN; Protocol PRN Reason: Hypoglycemia Protocol Stop: 10/24/19 09:56 Heparin Sodium (Porcine) (Heparin Sodium (Porcine)) 5,000 units SQ Q12 JORJE Stop: 10/24/19 20:59 Sodium Chloride (Nss 1000ml) 1,000 mls @ 80 mls/hr IV .[id number] JORJE Stop: 10/23/19 21:59 Last Admin: 09/24/19 16:43 Dose: 125 mls/hr Documented by: Insulin Aspart (Novolog Flexpen) 0 units SC ACHS JORJE Stop: 10/24/19 11:29 Last Admin: 09/24/19 17:24 Dose: 3 units Documented by: Ioversol (Optiray 320 100ml) 100 ml IV ONCE PRN PRN Reason: Interaction Checking Stop: 09/28/19 03:58 Last Admin: 09/24/19 04:00 Dose: 94 ml Documented by: Magnesium Hydroxide (Milk Of Magnesia) 30 ml PO Q6H PRN PRN Reason: Constipation Stop: 10/24/19 04:12 Miscellaneous (Carbohydrates For Hypoglycemia) 15 - 30 gm PO UD PRN PRN Reason: Hypoglycemia Protocol Stop: 10/24/19 09:56 Non-Formulary Medication (Paroxetine Hcl [Paxil]) 60 mg PO HS JOREJ Stop: 10/24/19 20:59 Ondansetron HCl (Zofran) 4 mg IV Q6H PRN PRN Reason: Nausea Stop: 10/24/19 04:12 Polyethylene Glycol (Miralax Powder Packet) 17 gm PO DAILY PRN PRN Reason: Constipation Stop: 10/24/19 04:12 Rosuvastatin Calcium (Crestor) 20 mg PO HS JORJE Stop: 10/24/19 20:59 Resident Activity Tracking Resident Involvement: Resident Care Provided Care Provided: Adult Hospital Medicine (1) Alcohol dependence Substance use status: uncomplicated Qualified Code(s): F10.20 - Alcohol dependence, uncomplicated (2) Nausea & vomiting Vomiting Intractability: non-intractable Vomiting type: unspecified Qualified Code(s): R11.2 - Nausea with vomiting, unspecified (3) Acute on chronic kidney failure Acute renal failure type: unspecified Chronic kidney disease stage: unspecified stage Qualified Code(s): N17.9 - Acute kidney failure, unspecified; N18.9 - Chronic kidney disease, unspecified
--- NOTE | 2019-09-24 18:41 | Billing Data ---
Date of Service September 24, 2019 Coding Level of Care Code 26350 Subseq Hosp Care Lvl 3
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
[2019-09-24] MEDS ORDERED: LORazepam 1 MG TAB PO PRN (19:38)
[2019-09-24] MEDS ORDERED: ROSUVASTATIN CALCIUM 20 MG TAB PO SCH (21:00)
[2019-09-24] MEDS ORDERED: PARoxetine HCL 20 MG TAB PO SCH (21:00)
[2019-09-24] MEDS: FOLIC ACID 1 MG TAB PO SCH (21:12)
[2019-09-24] MEDS: THIAMINE HCL 100 MG in SYRINGE 9 ML IV SCH (21:12)
[2019-09-24] MEDS: HEPARIN SOD 5,000 UNIT/0.5 ML VIAL SQ SCH (21:13)
--- NOTE | 2019-09-24 23:04 | Billing Data ---
Date of Service September 24, 2019 Coding Level of Care Code 14776 Initial Inpt Care Lvl 3
[2019-09-25] MEDS: SODIUM CHLORIDE 0.9% 1000ML 1,000 ML IV SCH (04:27)
[2019-09-25] MEDS: FOLIC ACID 1 MG TAB PO SCH (07:56)
[2019-09-25] MEDS: HEPARIN SOD 5,000 UNIT/0.5 ML VIAL SQ SCH (07:56)
[2019-09-25] MEDS: INSULIN ASPART 100 UNITS/ML 3 ML PEN SC SCH ×2 (07:58→11:32)
[2019-09-25] MEDS: diazePAM 5 MG TABLET PO SCH (08:02)
[2019-09-25 08:41] LABS: Hematocrit (blood only) 38.6 % (42-52); Hemoglobin 12.9 g/dL (14.0-18.0); Mean Corpuscular Hemoglobin 30.8 pg (25-34); Mean Corpuscular Hgb Conc 33.4 g/dL (32-36); Mean Corpuscular Volume 92.1 fL (80-100); Platelet Count 200 K/uL (130-400); Red Blood Count 4.19 M/uL (4.7-6.1); White Blood Count 5.85 K/uL (4.8-10.8)
[2019-09-25 09:04] LABS: Albumin Globulin Ratio 1.1 (0.9-2); Albumin Level 3.7 gm/dl (3.4-5.0); BUN Creatinine Ratio 18.1 (10-20); Bilirubin,Total 0.6 mg/dl (0.2-1); Calcium 9.2 mg/dl (8.5-10.1); Est GFR (African American) 49.4; Est GFR (Non-African American) 42.6; Globulin 3.5 gm/dl (2.5-4.0); Magnesium 2.1 mg/dl (1.8-2.4); Phosphorus 2.8 mg/dl (2.5-4.9); Potassium 4.6 mmol/L (3.5-5.1); Total Protein 7.2 gm/dl (6.4-8.2)
[2019-09-25] MEDS: THIAMINE HCL 100 MG in SYRINGE 9 ML IV SCH (09:04)
--- NOTE | 2019-09-25 09:57 | XRay Report ---
XR chest 2V PA/lateral CLINICAL HISTORY: 69 years-old Male presenting with recent chest pain, patchy basilar infiltrate, fol low-up. TECHNIQUE: PA and lateral views of the chest were obtained. COMPARISON: 09/23/2019. FINDINGS: Atherosclerosis of the aortic arch. Cardiac silhouette normal in size. Trace if any bibasilar opaciti es are present on the current exam. No new focal opacity. No pleural effusion or pneumothorax. Anteri or cervical and posterior thoracolumbar fusion hardware. Degenerative changes of the spine. Upper abd omen normal. IMPRESSION: 1. Minimal if any residual bibasilar opacities. No convincing evidence of acute cardiopulmonary dise ase on the current exam. ACT 112: Negative or not required by law. Electronically signed by: Gerry Holm M.D. 09/25/2019 9:55 AM
--- NOTE | 2019-09-25 11:52 | Discharge Summary ---
Date of Service September 25, 2019 Admission HPI Per Admitting Provider Sawyer Coleman is a 69y/o M w/ PMH significant for spinal stenosis, and history of alcohol dependence who presents emergency department with acute onset nausea and vomiting that began last night with associated cough and productive sputum worsening throughout the day. History provided by patient largely incoherent with minimal direct responses to questions asked, states that he has been staying mostly at home and only leaves his house for doctor's appointments and then every now and then to go to the grocery store with his daughter. Denies known or suspected COVID-19 exposure. Admission Exam Per Admitting Provider Constitutional: WD/WN, vitals as above Eyes: PERRL, conjunctivae normal, anicteric sclerae ENMT: external ear and nose normal, oropharynx normal Neck: normal visual inspection Respiratory: normal respiratory effort, lungs clear to auscultation Cardiovascular: Rate/Rhythm: regular rate and regular rhythm Heart Sounds: normal S1 and normal S2; no gallop, no murmur and no cardiac rub Gastrointestinal (Abdomen): Inspection/Auscultation: normal bowel sounds Percussion/Palpation: + abdomen tender (epigastric and suprapubic), + guarding and abdomen soft; no hepatosplenomegaly Musculoskeletal: no cyanosis or clubbing, extremities motor strength 5/5 Neurologic: patellar DTR's 2+ bilat, sensation intact CN's II-XI intact bilaterally Psychiatric: Orientation: alert, oriented to person, oriented to place and oriented to time Thought Process: + looseness of associations and + incoherent thought process Cognition: + attention not intact Insight: + limited insight Judgement: + limited judgement Genitourinary: + CVA tenderness Lymphatic: no cervical or axillary lymphadenopathy Principal Diagnosis Nausea and vomiting, acute on chronic kidney disease, airspace opacities, hyponatremia, hyperkalemia, hyperphosphatemia, elevated creatinine kinase, elevated alk phos, anemia, appendix diverticula, right kidney lesion, fractured left T11 pedicle screw, alcohol dependence Discharge Exam General Appearance: Awake, alert & oriented, comfortable in general, NAD. CV: +S1S2 RRR, no murmur. Pulm: Clear to auscultation throughout. No present cough. Abdomen: +BS, soft, non-tender, non-distended. Has a self-reducible midline incisional hernia. Extremities: No pedal edema or calf tenderness. Moving all extremities naturally and easily. He has a healed scar over his left second digit following surgery. Neuro: No gross neuro deficits. Discharge Data Allergies Allergy/AdvReac Type Severity Reaction Status Date / Time mold Allergy Mild nasal Verified 09/23/19 22:34 congestion, difficulty breathing Penicillins Allergy Mild rash, hives Verified 09/23/19 22:34 house dust Allergy Unknown congestion,difficulty Verified 09/23/19 22:34 breathing- receives allergy shots Consultations Surgical consult assessment and plan on September 24, 2019 - Patient admitted with nausea vomiting dehydration cough and sputum production with hyperkalemia and acute renal insufficiency - He seems to be improving significantly - He had an incidental finding on his CAT scan of mildly dilated appendix with diverticulosis, apparently this can sometimes be associated with neoplasm We will follow him as an outpatient if he improves significantly we will consider laparoscopic appendectomy versus open There is no plan for any surgical intervention during this admission Ordered Studies Single view chest x-ray on September 23, 2019 IMPRESSION: 1. Cardiomegaly without radiographic evidence of congestive failure. 2. Patchy airspace opacities are present at both lung bases. This could represent atelectasis and/or pneumonia/aspiration pneumonitis. Clinical correlation will be required and radiographic follow-up to resolution is recommended. Chest x-ray PA and lateral on September 25, 2019 IMPRESSION: 1. Minimal if any residual bibasilar opacities. No convincing evidence of acute cardiopulmonary disease on the current exam. CT abdomen and pelvis with IV contrast on September 24, 2019 IMPRESSION: 1. No acute process within the abdomen or pelvis. 2. Mildly dilated appendix which contains numerous diverticula. No evidence for acute appendicitis or diverticulitis however surgical consultation is recommended for consideration for appendectomy given potential for underlying lesion or complication. 3. 1.7 cm lesion within the posterior cortex of the upper pole pf the right kidney. This could reflect a small solid renal lesion or hyperdense cyst. Nonemergent MRI of the kidneys is recommended. 4. Status post T11-S1 fusion. Fracture of the left T11 pedicle screw. Lucency adjacent to the T11 screws may reflect loosening. Hospital Course (1) Nausea & vomitin-year-old male was admitted on 24 Sep 2019 for acute nausea and vomiting over 24 hours. Nausea and vomiting: His transient N/V has resolved since admission. He has some mild right flank pain but no anterior abdominal pain. Never needed any Zofran. Unclear source, though looks good now. Acute on CKD: Initial Cr 3.12, BUN 59. FeNa 3% (intrinsic). Treated with hydration, Cr back down to 1.6. Voiding well, though still c/o some need for increased effort. ? BPH. Can be followed as outpatient. Airspace opacities: Initial pCXR noted bilateral lung base patchy opacities. COVID-negative. BCx NGTD at time of hospital d/c. Given recent reported vomiting, perhaps has some aspiration pneumonitis. In ED, treated with single doses of ceftriaxone and doxycycline. On serial rechecks, completely pulm asymptomatic. Repeat CXR was clear. Lab issues Though to be related overall to poor nutrition, poor PO intake, +/- alcohol intake. - Hyponatremia: Admit Na 131. Trace urine ketones. Perhaps a bit dehydrated. Provided IVF, resolved to 137. - Hyperkalemia: Initial K 6.5. Initial EKG okay. Treated acutely. Resolved to 4.6. Checked AM cortisol (20), thus unlikely Odilon disease. - Hyperphosphatemia: Admit phos 5.9. Provided IVF, resolved to 2.8. Intact PTH was 57. - Elevated Creatinine Kinase: Admit CK 521. Provided IVF, resolved to 275. - Elevated AP: Admit AP 154. Remaining LFTs normal. No abdominal pain or RUQ ttp. On recheck, stable around 135. Can be followed as outpatient. Anemia: Admit hemoglobin 12.8, MCV 94. No evidence of acute bleeding. Recheck stable at 12.9. Can be followed as outpatient. Appendix diverticula: Noted on CT a/p. No present RLQ pain or tenderness on exam. See surgery consult. They recommended following him as an outpatient and possible surgery then. Right kidney lesion: 1.[address] a/p. Radiology recommended non-emergent kidney MRI. Ongoing medical history: - HTN, HLD: On home rosuvastatin. Will restart his home Lisinopril on dischar ge. - DM2: September 2019 HbA1c 5.6. At home is on metformin. On insulin sliding scale here. - Spinal stenosis: PSH T11-S1 fusion. See neurology in the past. CT a/p noted fracture of left T11 pedicle screw, possible loosening. --- Can follow up with his surgeon as an outpatient. - Chronic pain syndrome, chronic benzodiazepine use: On home scheduled Valium. --- Can consider acupuncture as an outpatient with Dr. Irish Yusuf. - PMH prostate cancer: History of prostatectomy 2016. - Hepatitis C: Patient says has been in remission for 5 to 10 years. - Anxiety, depression: Continue home paroxetine 60 mg. - Gout: At home, takes colchicine prn, none recently. - Alcohol dependence: Admit ethanol negative. Patient says last drink a couple weeks ago. Had recently started drinking again in March to help with his back pain. --- Added CIWA protocol, thiamine, and folate as a precaution. Is already on home scheduled valium. Will discharge on thiamine, folate, and recommend continued home MVI. - H difficult intubation. Code status: Full code. At time of hospital discharge, with the patient's permission, the patient's discharge plan was discussed with his sister Sumi Coleman on the phone. (2) Acute on chronic kidney failure: (3) Aspiration pneumonia: (4) Hyponatremia: (5) Hyperkalemia: (6) Hyperphosphatemia: (7) Elevated creatine kinase level: (8) Elevated alkaline phosphatase level: (9) Anemia: (10) Diverticula, appendix: (11) Lesion of right [place] kidney: (12) Hypertension: (13) Hyperlipidemia: (14) Spinal stenosis, lumbar region with neurogenic claudication: (15) Gout: (16) Alcohol dependence: (17) History of difficult intubation: Total Time Total Time Spent Total Time Spent (In Minutes): > 30 min Discharge Plan Discharge Items Patient Disposition: Home - Self-Care Reason For Visit: ACUTE RENAL FAILURE Discharge Diagnosis: Nausea vomiting, acute on chronic kidney disease, multiple lab issues, appendix diverticula, right kidney lesion Activity: Per Instructions section Non-emergency contact: Primary Care Provider and Surgeon Call non-emergency contact if: you have any medication questions Follow-up/Referrals: Yovani Ventura MD, FACS [Physician] - (Please call for a follow up appointment within 2 weeks.) Irish Yusuf DO [Hospitalist] - Ilia Gonzalez MD [Primary Care Provider] - Diet: Carb Consistent or DM2 Addtl Attending Provider Instructions: You were admitted to the hospital on September 24, 2019. While here we evaluated for the following issues: Nausea and vomiting: This seemed to be transient and had resolved at the time of your hospital discharge. Acute on chronic kidney disease: As you know, you have underlying kidney disease. On hospital admission, your kidneys were functioning worse than your baseline. This was likely related to being dehydrated. After some IV fluids, your kidney function returned to its baseline. - Please follow-up with your primary care provider for continued monitoring of your kidney function. Concern for aspiration pneumonia: There was some question that you may have aspirated (got some fluid into your lungs) after throwing up. This seem to have resolved on repeat chest x-ray and you are breathing well. Multiple laboratory issues: On hospital admission, there were multiple issues with your sodium, potassium, and other labs. Most likely this was all due to a combination of some dehydration as well as poor nutrition. - We would recommend that you try to eat three balanced meals per day. Perhaps your sister can help with this. Appendix diverticula: As an incidental finding on your CT scan, your appendix appears to have small pockets on it called diverticula. Because of this, we had general surgery see you. They recommend that you follow-up with them as an outpatient and discuss having your appendix taken out. Right kidney finding: As an incidental finding on your CT scan, there is a 1.7 cm mass, perhaps a cyst, on your kidney. Radiology recommends that you have a follow-up kidney MRI to help determine what this is. - Please work with your primary care provider for close follow-up of this. Spinal fusion: As an incidental finding on your CT scan, it looks like 1 of the fusion screws may be either loose or fractured. - Please follow-up with your spinal surgeon for further discussion on if this needs to be further addressed. Back pain, alcohol use: Of course, we recommend that you do not use alcohol to try to help cope with your back pain. - You can try following up with Dr. Irish Yusuf for outpatient acupuncture. Please make an appointment with her office to do so. - We recommend that you continue to take your home multivitamin. You will were also prescribed thiamine and folate supplements. At the time of your hospital discharge, with your permission, all of the above was discussed with your sister (Sumi Coleman) on the phone. Overall, we recommend that you follow-up with general surgery within 2 weeks, your back surgeon, as well as your primary care provider for ongoing care as discussed above. Please return to the nearest emergency department if you develop any new uncontrolled nausea or vomiting, abdominal pain, difficulty with urination, or any other emergent concerns. Addtl [employer] Provider Instructions: Please call Dr. Irish Yusuf at [facility] to schedule an appointment for acupuncture treatment for your back. Pending Studies at Discharge: Yes Studies:: Final blood culture results. Stand-Alone Forms: My [facility] Medications and DC Order Prescriptions: New folic acid 1 mg Tablet 1 mg PO QAM 30 Days Qty: 30 RF: 0 thiamine HCl (vitamin B1) 100 mg tablet 100 mg PO DAILY Qty: 30 RF: 0 Continued ascorbic acid (vitamin C) [Vitamin C] 500 mg Tablet 0 mg PO DAILY RF: 0 colchicine 0.6 mg Tablet 0.6 mg PO DAILY PRN (Reason: gout) RF: 0 rosuvastatin [Crestor] 20 mg tablet 20 mg PO HS RF: 0 oxycodone [Roxicodone] 5 mg tablet 7.5 mg PO Q6 PRN (Reason: Pain) RF: 0 multivitamin Tablet 1 tab PO HS RF: 0 metformin 500 mg Tablet 500 mg PO HS RF: 0 paroxetine HCl [Paxil] 40 mg tablet 60 mg PO HS RF: 0 diazepam [Valium] 5 mg tablet 5 mg PO BID RF: 0 omega 0-qky-mym-fish oil [Fish Oil] 1,000 mg (120 mg-180 mg) Capsule 1 cap PO HS RF: 0 lisinopril [Zestril] 20 mg tablet 20 mg PO DAILY RF: 0 docusate sodium [Colace] 100 mg capsule 100 mg PO BID PRN (Reason: Constipation) RF: 0 Discharge Orders: Discharge Order (Routine); Ordered 09/25/19 Ordered By: Wolfgang Ferreira Admission Data Admit Date/Time: 09/24/19 02:54 Attending Provider: Jazlyn Reese Admit Provider: Shailesh Silverman Primary Care Provider: Ilia Gonzalez Other Providers: Ian Menendez ; Yovani Ventura Other Interventions: Discharge Summary Assessment (RN) Last Done: 09/25/19 12:14 DC Date/Time DO NOT enter until pt leaves facility: 09/25/19 12:37 Supervising Physician Co-Signing Physician Notes I personally examined the patient and verified all guerrero points of history and exam, discussed case, and agree with decision making with Dr. Ferreira with the following additions/exceptions: Patient feeling much better, is tolerating regular diet. No further nausea or vomiting. Renal function is improved. He admits that he has been drinking more alcohol to deal with his chronic back pain and thinks that that may have been related to the nausea vomiting and likely had alcoholic gastritis. Stable for discharge home Vitals reviewed Gen: AAOx3, NAD HEENT: Anicteric sclerae, EOMI CV: RRR no mgr nl S1S2 Pulm: CTAB no wcr Abd: +BS soft NT ND no masses or hernias Ext: No edema, 2+ DP pulses Skin: No rashes, warm/dry Neuro: Full strength throughout 69-year-old male here with nausea vomiting likely alcoholic gastritis and acute kidney injury with electrolyte abnormalities now resolving -Encouraged abstinence from alcohol use Resident Activity Tracking Resident Involvement: Resident Care Provided Care Provided: Adult Hospital Medicine
--- NOTE | 2019-10-08 10:49 | Billing Data ---
Date of Service September 25, 2019 Coding Level of Care Code D/C Day Management >30 mins
== END 2019-09-25 12:37 | disposition home or self-care (01) | DRG 698 ==
LOC: ED 18:49 → SUATTDRO 09-24 02:54 → 2W 09-24 02:54
DX: M10.9 Gout, unspecified; N17.9 Acute kidney failure, unspecified; E87.1 Hypo-osmolality and hyponatremia; I12.9 Hypertensive chronic kidney disease with stage 1 through stage 4 chronic kidney disease, or unspecified chronic kidney disease; J69.0 Pneumonitis due to inhalation of food and vomit; E83.39 Other disorders of phosphorus metabolism; K38.2 Diverticulum of appendix; E11.9 Type 2 diabetes mellitus without complications; D64.9 Anemia, unspecified; R11.2 Nausea with vomiting, unspecified; N28.9 Disorder of kidney and ureter, unspecified; E78.5 Hyperlipidemia, unspecified; N18.9 Chronic kidney disease, unspecified; F10.20 Alcohol dependence, uncomplicated

== ENCOUNTER 2019-11-27 06:13 | Inpatient (IN) ==
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
[~2019-11-27 06:13] MED LIST changes: -ACETAMINOPHEN 500 MG TAB PO SCH; -CeleBREX 200 MG CAP PO SCH
[2019-11-27] MEDS ORDERED: PROPOFOL IV EMULSION 10 MG/ML 20 ML VIAL IV ONE (07:04)
[2019-11-27] MEDS ORDERED: ROCURONIUM BROMIDE 10 MG/ML 5 ML VIAL IV ONE (07:04)
[2019-11-27] MEDS ORDERED: ePHEDrine sulfate 50 MG/ML SYR ONE (07:04)
[2019-11-27] MEDS ORDERED: PHENYLEPHRINE 100MCG/ML 5ML SYR ONE (07:04)
[2019-11-27] MEDS ORDERED: GLYCOPYRROLATE 0.2 MG/ML VIAL ONE (07:04)
[2019-11-27] MEDS ORDERED: DEXAMETHASONE SOD INJ 4 MG/ML VIAL ONE (07:04)
[2019-11-27] MEDS ORDERED: fentaNYL citrate 100 MCG/2 ML VIAL ONE (07:04)
[2019-11-27] MEDS ORDERED: NEOSTIGMINE METHYLSULFATE 1 MG/ML 10ML VIAL ONE (07:04)
[2019-11-27] MEDS ORDERED: LARYING-O-JET KIT (LTA) ONE (07:04)
[2019-11-27] MEDS ORDERED: LIDOCAINE HCL 2% 2 ML VIAL/AMP(20MG/ML) INFIL ONE (07:04)
[2019-11-27] MEDS ORDERED: ONDANSETRON INJ 2 MG/ML 2 ML VIAL ONE (07:04)
[2019-11-27] MEDS ORDERED: MIDAZOLAM HCL 1 MG/ML 2ML VIAL ONE (07:05)
[2019-11-27] MEDS ORDERED: BACITRACIN INJ 50,000 UNIT VIAL ONE (07:08)
[2019-11-27] MEDS ORDERED: BUPIVACAINE/EPINEPHRINE 0.25% 1:200,000 30 ML VIAL ONE (07:08)
[2019-11-27] MEDS ORDERED: ATROPINE SULFATE 0.1 MG/ML 10ML SYR IV PRN (07:28)
[2019-11-27] MEDS ORDERED: ePHEDrine sulfate 50 MG/ML AMP IV PRN (07:28)
[2019-11-27] MEDS ORDERED: ONDANSETRON INJ 2 MG/ML 2 ML VIAL IV PRN (07:28)
--- NOTE | 2019-11-27 07:28 | History & Physical Bridge Note ---
Date of Service November 27, 2019 History & Physical Bridge Note I have examined the patient, reviewed the History & Physical and in the interval since the performance of the History & Physical I have noted the following changes of clinical significance: no changes noted
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
[2019-11-27] MEDS ORDERED: KETAMINE HCL INJ 50 MG/ML 10 ML VIAL ONE (07:43)
[2019-11-27] MEDS ORDERED: HYDROmorphone INJ 2 MG/ML SYR/VIAL ONE (08:00)
[2019-11-27] MEDS ORDERED: FLOSEAL HEMOSTATIC MATRIX 10ML TOP ONE (08:34)
[2019-11-27] MEDS ORDERED: KETOROLAC 30 MG/ML VIAL IV PRN (08:45)
[2019-11-27] MEDS ORDERED: KETOROLAC TROMETHAMINE 15 MG/ML VIAL IV PRN (08:45)
[2019-11-27] MEDS ORDERED: HYDROmorphone INJ 0.5 MG/0.5 ML SYR IV PRN ×2 (08:45)
[2019-11-27] MEDS ORDERED: OXYCODONE HCL IR 5 MG TAB (IMMEDIATE RELEASE) PO PRN ×2 (08:45)
--- NOTE | 2019-11-27 08:45 | Operative Report ---
Post Operative Report Pre & Post Diagnosis Operation Date: 11/27/19 07:45 Pre-Op Diagnosis: Right Sacroiliac Joint Dysfunction Post-Op Diagnosis: Right Sacroiliac Joint Dysfunction I identified the patient and participated in the time-out.: Yes Procedure Operation Date: 11/27/19 07:45 Actual Procedures #1 open right sacroiliac joint fusion. #2 placement of 25 mm allograft filled with infuse collagen sponge in the right SI joint. #3 placement of 3 percutaneous globus SI screws across the right SI joint. Surgeon Sanchez Blank, Biostatistician Papo Cotto Estimated Blood Loss 25 Findings Consistent with Post-Op Diagnosis Specimens None Indications This is a 69-year-old male well-known to me the presents with above-mentioned diagnosis after failed extensive course of nonoperative care is here for surgical invention. Description of Procedure Patient was met with identified informed consent obtained. Patient was then taken to the operative suite underwent intubation placed in the prone position the Иван table chest padded bolsters. All bony prominences well-padded eyes inspected to ensure no external pressure placed upon them. This point the right upper buttock was prepped and draped in normal sterile fashion. I then placed a approximately 3 cm incision over the right SI joint. I verified my position with fluoroscopy. Then placed a guidewire directly within the joint joint food scientist over the guidewire followed by cannula into the joint. I then curetted the joint out to subcortical bleeding bone and placed a 25 mm bony allograft filled with infuse collagen sponge directly in the right SI joint. After this complete a second incision was placed on the right upper buttock in line with the posterior sacral slope. It was approximately 3 cm in length. A guidewire was then inserted. Using inlet outlet and lateral views a guidewire was placed across the proximal portion of the right SI joint. Once this was established. Cannulas were placed and I drilled across the guidewire. A 50 mm SANDOVAL-coated slotted screw filled with infuse collagen sponge and local autograft was then placed across the joint. A second screw was then placed distally to this. It was placed in similar fashion. The screw was 45 mm in length SANDOVAL-coated slotted and filled with infuse and local autograft. A third distal screw was also placed in a similar fashion. The screw was 35 mm in length SANDOVAL-coated slotted filled with infuse and local autograft. All screws had excellent alignment and purchase. The incisions were then copiously irrigated closed with subcutaneous Vicryl and 4 Monocryl for final skin closure. Steri-Strips dressings placed. Patient waken taken to PACU stable condition. Please note Papo record was present at the entire procedure involved the patient positioning complex portions of the surgery and final skin closure. I attest to the content of the Intraoperative Record and any orders documented therein. Any exceptions are noted below.
[2019-11-27] MEDS: fentaNYL citrate 100 MCG/2 ML VIAL IV PRN ×4 (09:11→09:26)
[2019-11-27] MEDS: HYDROmorphone INJ 2 MG/ML SYR/VIAL IV PRN ×8 (09:31→10:06)
--- NOTE | 2019-11-27 09:56 | Fluoroscopy Report ---
FL sacrum HISTORY: 69 years-old Male RIGHT SI JOINT FUSION fusion of the right SI joint COMPARISON: CT abdomen pelvis 11/11/2019 TECHNIQUE: 3 spot fluoroscopic images of the sacrum were obtained utilizing 75.0 seconds fluoroscopy time FINDINGS: There are 3 cannulated screws fixating the right SI joint. Satisfactory alignment. Hardware appears i ntact. Partially imaged discectomy changes with posterior interbody sherry and screw fusion of the lower lumbar spine. IMPRESSION: Fluoroscopic assistance as above. Please see operative report for further details. ACT 112: Negative or not required by law. The above report was generated using voice recognition software. It may contain grammatical, syntax o r spelling errors. Electronically signed by: Wolfgang Cedillo M.D. 11/27/2019 9:54 AM
--- NOTE | 2019-11-27 10:16 | Anesthesiology Progress Note ---
Date of Service November 27, 2019 Anesthesia Post Procedure Vital Signs Vital Signs: Temp Pulse Pulse Resp BP BP Pulse Ox 11/27/19 10:10 37.2 C 82 16 108/69 96 11/27/19 10:00 91 H 16 119/73 97 11/27/19 09:50 91 H 16 141/72 H 95 11/27/19 09:40 88 16 133/72 96 11/27/19 09:30 87 16 117/82 92 11/27/19 09:20 85 16 130/86 98 11/27/19 09:10 88 16 139/86 99 11/27/19 09:02 36.3 C L 94 H 16 159/94 H 98 11/27/19 06:48 36.6 C 67 18 155/108 H 96 Transfer of Care Handoff Completed per policy Notes Mental Status: alert / awake / arousable and participated in evaluation Patient Amnestic to Procedure: Yes Nausea / Vomiting: adequately controlled Pain: adequately controlled Airway Patency, RR, SpO2: stable & adequate BP & HR: stable & adequate Hydration State: stable & adequate Anesthetic Complications: no major complications apparent and Pt Satisfied with anesthetic care
== END 2019-11-27 11:18 | disposition home or self-care (01) | DRG 460 ==
LOC: ASU 06:13 → 1E 07:00 → ASU 11:18

== ENCOUNTER 2022-06-27 09:31 | Inpatient (IN) ==
[2022-06-27] MEDS ORDERED: ACETAMINOPHEN 325 MG TAB PO STA (09:55)
[2022-06-27] MEDS ORDERED: cefTRIAXone SODIUM 2,000 MG/70 ML BAG IV STA (09:55)
[2022-06-27] MEDS ORDERED: SODIUM CHLORIDE 0.9% 1000ML 2,000 ML IV ONE (09:55)
--- NOTE | 2022-06-27 10:05 | Emergency Department Note ---
Impression & Plan Atrial flutter with rapid ventricular response, CHF (congestive heart failure), Sepsis, Pleural effusion, Hypoxia ED Provider Note NAME: ENRIQUE VÁSQUEZ AGE: 72 SEX: M : 1950 ARRIVES VIA: Ambulance INFORMANT: Patient ED PROVIDER(S): Francis Amaral DO CHIEF COMPLAINT: Shortness of breath HPI: Patient is a 72-year-old male who presents to the ER with past medical hi story of diabetes, hepatitis C, previous intravenous drug use, hypertension, back pain, spinal stenosis, alcohol dependence, who presents to the ER for fever, tachycardia, shortness of breath, and back pain. He notes he has chronic back pain but this has been getting worse. Denies any headache or change in vision. Does have pain in his chest with breathing in his back. No belly pain, nausea, vomiting, or diarrhea. No dysuria, urgency, or frequency. No other exacerbating or remitting factors. He was brought in by EMS and found to be in A-fib with RVR. PAST MEDICAL HISTORY:See Below PAST SURGICAL HISTORY:See Below FAMILY HISTORY:See Below SOCIAL HISTORY:See Below HOME MEDICATIONS:See Below ALLERGIES:See Below VITALS:See Below PHYSICAL EXAMINATION: GENERAL: Sitting up in bed, alert, ill-appearing, moderate distress, on nasal cannula EYE EXAM: normal conjunctiva. PERRL and EOM's intact. OROPHARYNX: mucous membranes are dry NECK: supple, no nuchal rigidity, no adenopathy, non-tender LUNGS: Clear to auscultation. Normal chest wall mechanics HEART: no murmurs, S1 normal and S2 normal BACK: Pain in the lower lumbar midline region with small mount of ABDOMEN: abdomen soft, non-tender, normo-active bowel sounds, no masses, no rebound or guarding. UPPER EXTREMITIES: upper extremities are grossly normal. LOWER EXTREMITIES: No pitting edema. NEURO EXAM: Normal sensorium, cranial nerves II-XII grossly intact, normal speech, no gross weakness of arms, no gross weakness of legs. MEDICAL DECISION MAKING: Patient is a 72-year-old male who presents to the ER brought in by EMS for shortness of breath. He was found to be in atrial flutter with RVR prior to arrival with a heart rate in the 170s. I received medical command. Ordered them to give him fluids and hold on antiarrhythmics. Upon presentation he is febrile and tachycardic with a temp of nearly 39. IVs were established and he was given 2 L of IV fluids. Heart rate trended down and converted from an atrial flutter with RVR into sinus rhythm in the 110s with PACs. Labs consistent with a leukocytosis of 12,000. Mild anemia 11.3. BMP with sodium of 140. Due to was unremarkable. Creatinine slightly up at 1.5. Lactate was elevated at 2.6. Troponin was elevated as well. Pro-Colin was normal. UA was clean. Viral URI pending upon admission. CT chest abdomen pelvis and thoracic spine shows mild pulmonary edema versus pneumonia. External records were reviewed. Fluids were stopped once he converted into a sinus rhythm and heart rate trended down. He received 2 L but did not receive any additional fluids as he received 500 prior to arrival and he does have overt failure on his CTA of the chest. No PEs. He was given Tylenol and IV antibiotics. He was updated at bedside. Discussed with Kostas Fofana for further evaluation management and treatment. External records were reviewed. Unclear source at this time external records were reviewed. Triage Nursing notes reviewed. Limited review of prior medical records performed Vital Signs: reviewed and remarkable for febrile and tachycardic Differential diagnosis: Differential diagnoses includes but is not limited to pneumonia, bronchitis, COPD/Asthma exacerbation, pneumothorax, pulmonary embolism, congestive heart failure, acute coronary syndrome ER treatment provided: See below Diagnostics interpreted by me include EKG and cardiac monitoring as listed below: -Cardiac Monitoring: An order was placed for continuous cardiac monitoring. The monitor shows a rate of 157 with Afib rhythm. -ECG: A-fib RVR rate 160 Normal axis PVCs QTc 469 Repeat EKG #2 shows sinus rhythm PACs present Normal axis PVCs present QTc 479 -Laboratory studies:Interpreted by me as stated above in MDM and shown below. Imaging studies: Xrays: As interpreted by me: Portable AP upright 1 view of the chest shows right lower lobe infiltrate per my read CTs show: CT angio of the chest as well as abdomen pelvis and thoracic spine shows pulmonary edema versus pneumonia Consultation(s): Discussed with Dr. Kostas Fofana for further evaluation management and treatment Procedures:none Critical Care: I have personally spent 32 minutes of critical care time in the direct management of this patient. This includes bedside care, interpretation of diagnostic studies, and testing, discussion with consultants, patient, and family members, and other required patient management activities. This 32 minutes is in excess of all separately billable procedures. Past Med/Surg History Medical History Acute kidney injury Alcohol dependence Anxiety Cancer Chronic pain syndrome Chronic use of benzodiazepine for therapeutic purpose CKD (chronic kidney disease) Depression 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, type 2 Hepatitis C History of benign eye tumor Hyperlipidemia Hypertension Stage 3b chronic kidney disease Tremor Surgical History History of Achilles tendon repair History of appendectomy History of back surgery History of colonoscopy History of difficult intubation History of elbow surgery History of eye surgery History of eyelid surgery History of facial surgery History of fusion of cervical spine History of herniorrhaphy History of incision and drainage History of nasal septoplasty History of prostatectomy History of repair of rotator cuff History of spinal fusion History of tonsillectomy Family History Uncle Family history of diabetes mellitus Cancer Mother FHx: breast cancer Aneurysm FRONTAL LOBE Breast cancer Father FHx: aortic aneurysm Lewy body dementia Cancer Social History Smoking Status: Former smoker Tobacco Type: Cigarettes packs per day: 1; Second Hand Exposure: Yes (at times); Hx Alcohol Use: Yes Alcohol type: hard liquor Alcohol type Comment: 3 drinks daily Hx Substance Use: No Preferred Language: Malian Communication Ability: Effective Visual Impairment: Limited Hearing Ability: Normal [employer] Consultant Required: No Beliefs That Will Affect Care: None marital status: Single Current Living Situation: Alone current occupational status: retired 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[employer], 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, 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 other: 1 daughter Feels Safe at Home: Yes Assistive Devices: Contacts and Glasses Allergies Allergies Allergy/AdvReac Type Severity Reaction Status Date / Time house dust Allergy Unknown congestion,difficulty Verified 04/13/22 10:24 breathing- receives allergy shots mold Allergy Unknown nasal Verified 04/13/22 10:24 congestion, difficulty breathing Penicillins Allergy Unknown rash, hives Verified 04/13/22 10:24 Home Meds Home Medications Medication Instructions Recorded Confirmed diazepam 5 mg tablet (Valium) 5 mg PO BID 01/28/18 06/27/22 metformin 500 mg tablet 500 mg PO HS 01/28/18 06/27/22 multivitamin 1 tab PO HS 01/28/18 06/27/22 lisinopril 20 mg tablet (Zestril) 20 mg PO HS 08/16/19 06/27/22 colchicine 0.6 mg tablet 0.6 mg PO DAILY PRN gout 09/23/19 06/27/22 paroxetine HCl 40 mg tablet (Paxil) 40 mg PO HS 01/04/22 06/27/22 oxycodone 5 mg tablet 5 mg PO TID PRN Pain 04/13/22 06/27/22 paroxetine HCl 20 mg tablet 20 mg PO HS 04/13/22 06/27/22 rosuvastatin 40 mg tablet 40 mg PO HS 04/13/22 06/27/22 Results & Data (ED) Vital Signs Vital Signs - 24 hr 06/27/22 09:47 06/27/22 09:54 06/27/22 10:21 Temperature 38.7 C H Temperature Source Oral Pulse Rate 185 H 167 H Pulse Rate from SpO2 Sensor Pulse Rhythm Irregular Pulse Strength Normal Respiratory Rate 22 Respiratory Effort / Characteristics Non-Labored Spontaneous Spontaneous Labored Short of Breath Respiratory Depth Normal Deep Respiratory Pattern Regular Tachypnea Blood Pressure 183/136 H Blood Pressure Mean 151 Pulse Oximetry 96 Oxygen Delivery Method Room Air Nasal Cannula Oxygen Flow Rate Sepsis Recent Fever Within 48 Hours No Sepsis New/Unexplained Change in Mental Status No Sepsis Action Taken by Nursing No Action Required 06/27/22 10:23 06/27/22 10:00 06/27/22 10:15 Temperature Temperature Source Pulse Rate 169 H 129 H Pulse Rate from SpO2 Sensor 169 H Pulse Rhythm Pulse Strength Respiratory Rate 32 H 34 H Respiratory Effort / Characteristics Respiratory Depth Respiratory Pattern Blood Pressure Blood Pressure Mean Pulse Oximetry 94 Oxygen Delivery Method Nasal Cannula Oxygen Flow Rate 2 Sepsis Recent Fever Within 48 Hours Sepsis New/Unexplained Change in Mental Status Sepsis Action Taken by Nursing 06/27/22 11:03 06/27/22 10:27 06/27/22 10:30 Temperature Temperature Source Pulse Rate 127 H 135 H Pulse Rate from SpO2 Sensor 111 H 99 H Pulse Rhythm Pulse Strength Respiratory Rate 30 H 23 Respiratory Effort / Characteristics Respiratory Depth Respiratory Pattern Blood Pressure 178/102 H 165/100 H Blood Pressure Mean 127 121 Pulse Oximetry 94 96 97 Oxygen Delivery Method Nasal Cannula Oxygen Flow Rate 2 Sepsis Recent Fever Within 48 Hours Sepsis New/Unexplained Change in Mental Status Sepsis Action Taken by Nursing 06/27/22 10:45 06/27/22 11:00 Temperature Temperature Source Pulse Rate 128 H 126 H Pulse Rate from SpO2 Sensor 119 H 115 H Pulse Rhythm Pulse Strength Respiratory Rate 24 23 Respiratory Effort / Characteristics Respiratory Depth Respiratory Pattern Blood Pressure 182/145 H Blood Pressure Mean 157 Pulse Oximetry 93 94 Oxygen Delivery Method Oxygen Flow Rate Sepsis Recent Fever Within 48 Hours Sepsis New/Unexplained Change in Mental Status Sepsis Action Taken by Nursing Laboratory Data 06/27/22 11:08 06/27/22 11:11 Lab Results 06/27/22 06/27/22 06/27/22 Range/Units 10:00 10:00 10:00 WBC Cancelled RBC Cancelled Hgb Cancelled POC Hgb (14.0-18.0) g/dl Hct Cancelled POC Hct (42-52) % MCV Cancelled MCH Cancelled MCHC Cancelled RDW Std Deviation Cancelled RDW Coeff of Diana Cancelled Plt Count Cancelled MPV Cancelled Immature Gran % (Auto) Cancelled Neut % (Auto) Cancelled Lymph % (Auto) Cancelled Davison % (Auto) Cancelled Eos % (Auto) Cancelled Baso % (Auto) Cancelled Neut # (Auto) Cancelled Lymph # (Auto) Cancelled Davison # (Auto) Cancelled Eos # (Auto) Cancelled Baso # (Auto) Cancelled Immature Gran # (Auto) Cancelled Absolute Nucleated RBC Cancelled Nucleated RBC % (auto) Cancelled Neutrophils % (Manual) Cancelled Band Neutrophils % Cancelled Lymphocytes % (Manual) Cancelled Prolymphocyte % Cancelled Reactive Lymphs % (Man) Cancelled Monocytes % (Manual) Cancelled Eosinophils % (Manual) Cancelled Basophils % (Manual) Cancelled Metamyelocytes % (Man) Cancelled Myelocytes % (Man) Cancelled Promyelocytes % (Man) Cancelled Blast Cells % (Manual) Cancelled Plasma Cell % (Manual) Cancelled Other Cells % Cancelled Nucleated RBC % Cancelled Neutrophils # (Manual) Cancelled Band Neutrophils # Cancelled Total Absolute Neuts Cancelled Lymphocytes # (Manual) Cancelled Prolymphocyte # Cancelled Reactive Lymphs # Cancelled Total Abs Lymphocytes Cancelled Monocytes # (Manual) Cancelled Eosinophils # (Manual) Cancelled Basophils # (Manual) Cancelled Metamyelocytes # (Man) Cancelled Myelocytes # (Manual) Cancelled Promyelocytes # (Man) Cancelled Blast Cells # (Man) Cancelled Plasma Cell # (Manual) Cancelled Other Cells # Cancelled Nucleated RBCs # (Man) Cancelled Hypersegmented Neuts Cancelled Hyposegmented Neuts Cancelled Hypogranular Neuts Cancelled Large Granular Lymphs Cancelled # Lrg Granular Lymphs Cancelled Hairy Cells Cancelled Smudge Cells Cancelled Toxic Granulation Cancelled Toxic Vacuolation Cancelled Dohle Bodies Cancelled Yordy Rods Cancelled Platelet Estimate Cancelled Hypogranular Platelets Cancelled Giant Platelets Cancelled Platelet Satelliting Cancelled RBC Morphology Cancelled Polychromasia Cancelled Hypochromasia Cancelled Poikilocytosis Cancelled Basophilic Stippling Cancelled Anisocytosis Cancelled Microcytosis Cancelled Macrocytosis Cancelled Spherocytes Cancelled Pappenheimer Bodies Cancelled Sickle Cells Cancelled Target Cells Cancelled Tear Drop Cells Cancelled Ovalocytes Cancelled Stomatocytes Cancelled Wilcox-Brewton Bodies Cancelled Echinocytes Cancelled Acanthocytes (Spur) Cancelled Rouleaux Cancelled RBC Agglutinates Cancelled Schistocytes Cancelled Sezary Cell Cancelled POC Sodium (135-144) mmol/L Sodium 140 (136-145) mmol/L POC Potassium (3.3-5.0) mmol/L Potassium TNP POC Chloride (101-112) mmol/L Chloride 108 H (98-107) mmol/L Carbon Dioxide 21 (21-32) mmol/L POC Total CO2 (24-31) mmol/L Anion Gap 11 (3-11) POC Anion Gap (16-25) mmol/L POC BUN (7-18) mg/dl BUN 27 H (6-23) mg/dl Creatinine 1.49 H (0.6-1.4) mg/dl POC Creatinine (0.6-1.3) mg/dl Est Cr Clr Drug Dosing 56.5 ml/min Est GFR ( Amer) 54.3 ml/min Est GFR (Non-Af Amer) 46.9 ml/min BUN/Creatinine Ratio 18.1 (10-20) Glucose 87 (70-99(Fasting)) mg/dl POC Glucose (70-99) mg/dl POC Glucose (other) (70-99) mg/dl Lactate (0.4-2.0) mmol/L Calcium 9.2 (8.5-10.1) mg/dl POC Ioniz Calcium Steffen (1.12-1.32) mmol/l Magnesium 1.2 L (1.7-2.4) mg/dl Total Bilirubin 0.6 (0.2-1.0) mg/dl Direct Bilirubin TNP AST TNP ALT 18 (7-52) U/L Alkaline Phosphatase 85 (34-104) U/L Troponin I High Sens 36.0 H (0-20) pg/ml Total Protein 6.9 (6.0-8.3) gm/dl Albumin 4.2 (3.4-5.0) gm/dl Procalcitonin < 0.05 (0-0.5) ng/ml Urine Color Urine Appearance (Clear) Urine pH (4.5-7.5) Ur Specific [place] (1.000-1.030) Urine Protein (Negative) Urine Glucose (UA) (Negative) Urine Ketones (Negative) Urine Blood (Negative) Urine Nitrite (Negative) Urine Bilirubin (Negative) Urine Urobilinogen (Negative) Ur Leukocyte Esterase (Negative) Urine WBC (Auto) (0-5) /hpf Urine RBC (Auto) (0-4) /hpf U Hyaline Cast (Auto) (0-5) /lpf U Epithel Cells (Auto) (0-5) /lpf Urine Bacteria (Auto) (Negative) Blood Parasites ID Cancelled 06/27/22 06/27/22 06/27/22 Range/Units 10:06 10:41 11:08 WBC 11.59 H RBC 3.43 L Hgb 11.3 L POC Hgb 9.2 L (14.0-18.0) g/dl Hct 33.1 L POC Hct 27 L (42-52) % MCV 96.5 MCH 32.9 MCHC 34.1 RDW Std Deviation 46.7 H RDW Coeff of Diana 13.3 Plt Count 178 MPV 9.6 Immature Gran % (Auto) 1.9 Neut % (Auto) 84.4 Lymph % (Auto) 7.9 Davison % (Auto) 4.9 Eos % (Auto) 0.6 Baso % (Auto) 0.3 Neut # (Auto) 9.79 H Lymph # (Auto) 0.91 L Davison # (Auto) 0.57 Eos # (Auto) 0.07 Baso # (Auto) 0.03 Immature Gran # (Auto) 0.22 H Absolute Nucleated RBC Nucleated RBC % (auto) Neutrophils % (Manual) Band Neutrophils % Lymphocytes % (Manual) Prolymphocyte % Reactive Lymphs % (Man) Monocytes % (Manual) Eosinophils % (Manual) Basophils % (Manual) Metamyelocytes % (Man) Myelocytes % (Man) Promyelocytes % (Man) Blast Cells % (Manual) Plasma Cell % (Manual) Other Cells % Nucleated RBC % Neutrophils # (Manual) Band Neutrophils # Total Absolute Neuts Lymphocytes # (Manual) Prolymphocyte # Reactive Lymphs # Total Abs Lymphocytes Monocytes # (Manual) Eosinophils # (Manual) Basophils # (Manual) Metamyelocytes # (Man) Myelocytes # (Manual) Promyelocytes # (Man) Blast Cells # (Man) Plasma Cell # (Manual) Other Cells # Nucleated RBCs # (Man) Hypersegmented Neuts Hyposegmented Neuts Hypogranular Neuts Large Granular Lymphs # Lrg Granular Lymphs Hairy Cells Smudge Cells Toxic Granulation Toxic Vacuolation Dohle Bodies Yordy Rods Platelet Estimate Hypogranular Platelets Giant Platelets Platelet Satelliting RBC Morphology Polychromasia Hypochromasia Poikilocytosis Basophilic Stippling Anisocytosis Microcytosis Macrocytosis Spherocytes Pappenheimer Bodies Sickle Cells Target Cells Tear Drop Cells Ovalocytes Stomatocytes Wilcox-Brewton Bodies Echinocytes Acanthocytes (Spur) Rouleaux RBC Agglutinates Schistocytes Sezary Cell POC Sodium 147 H (135-144) mmol/L Sodium (136-145) mmol/L POC Potassium 3.2 L (3.3-5.0) mmol/L Potassium POC Chloride 114 H (101-112) mmol/L Chloride (98-107) mmol/L Carbon Dioxide (21-32) mmol/L POC Total CO2 16 L (24-31) mmol/L Anion Gap (3-11) POC Anion Gap 22.0 (16-25) mmol/L POC BUN 21 H (7-18) mg/dl BUN (6-23) mg/dl Creatinine (0.6-1.4) mg/dl POC Creatinine 1.1 (0.6-1.3) mg/dl Est Cr Clr Drug Dosing ml/min Est GFR ( Amer) ml/min Est GFR (Non-Af Amer) ml/min BUN/Creatinine Ratio (10-20) Glucose (70-99(Fasting)) mg/dl POC Glucose (70-99) mg/dl POC Glucose (other) 65 L* (70-99) mg/dl Lactate 2.6 H* (0.4-2.0) mmol/L Calcium (8.5-10.1) mg/dl POC Ioniz Calcium Steffen 0.95 L (1.12-1.32) mmol/l Magnesium (1.7-2.4) mg/dl Total Bilirubin (0.2-1.0) mg/dl Direct Bilirubin AST ALT (7-52) U/L Alkaline Phosphatase (34-104) U/L Troponin I High Sens (0-20) pg/ml Total Protein (6.0-8.3) gm/dl Albumin (3.4-5.0) gm/dl Procalcitonin (0-0.5) ng/ml Urine Color Urine Appearance (Clear) Urine pH (4.5-7.5) Ur Specific [place] (1.000-1.030) Urine Protein (Negative) Urine Glucose (UA) (Negative) Urine Ketones (Negative) Urine Blood (Negative) Urine Nitrite (Negative) Urine Bilirubin (Negative) Urine Urobilinogen (Negative) Ur Leukocyte Esterase (Negative) Urine WBC (Auto) (0-5) /hpf Urine RBC (Auto) (0-4) /hpf U Hyaline Cast (Auto) (0-5) /lpf U Epithel Cells (Auto) (0-5) /lpf Urine Bacteria (Auto) (Negative) Blood Parasites ID 06/27/22 06/27/22 06/27/22 Range/Units 11:10 11:11 12:16 WBC RBC Hgb POC Hgb (14.0-18.0) g/dl Hct POC Hct (42-52) % MCV MCH MCHC RDW Std Deviation RDW Coeff of Diana Plt Count MPV Immature Gran % (Auto) Neut % (Auto) Lymph % (Auto) Davison % (Auto) Eos % (Auto) Baso % (Auto) Neut # (Auto) Lymph # (Auto) Davison # (Auto) Eos # (Auto) Baso # (Auto) Immature Gran # (Auto) Absolute Nucleated RBC Nucleated RBC % (auto) Neutrophils % (Manual) Band Neutrophils % Lymphocytes % (Manual) Prolymphocyte % Reactive Lymphs % (Man) Monocytes % (Manual) Eosinophils % (Manual) Basophils % (Manual) Metamyelocytes % (Man) Myelocytes % (Man) Promyelocytes % (Man) Blast Cells % (Manual) Plasma Cell % (Manual) Other Cells % Nucleated RBC % Neutrophils # (Manual) Band Neutrophils # Total Absolute Neuts Lymphocytes # (Manual) Prolymphocyte # Reactive Lymphs # Total Abs Lymphocytes Monocytes # (Manual) Eosinophils # (Manual) Basophils # (Manual) Metamyelocytes # (Man) Myelocytes # (Manual) Promyelocytes # (Man) Blast Cells # (Man) Plasma Cell # (Manual) Other Cells # Nucleated RBCs # (Man) Hypersegmented Neuts Hyposegmented Neuts Hypogranular Neuts Large Granular Lymphs # Lrg Granular Lymphs Hairy Cells Smudge Cells Toxic Granulation Toxic Vacuolation Dohle Bodies Yordy Rods Platelet Estimate Hypogranular Platelets Giant Platelets Platelet Satelliting RBC Morphology Polychromasia Hypochromasia Poikilocytosis Basophilic Stippling Anisocytosis Microcytosis Macrocytosis Spherocytes Pappenheimer Bodies Sickle Cells Target Cells Tear Drop Cells Ovalocytes Stomatocytes Wilcox-Brewton Bodies Echinocytes Acanthocytes (Spur) Rouleaux RBC Agglutinates Schistocytes Sezary Cell POC Sodium (135-144) mmol/L Sodium (136-145) mmol/L POC Potassium (3.3-5.0) mmol/L Potassium 4.2 POC Chloride (101-112) mmol/L Chloride (98-107) mmol/L Carbon Dioxide (21-32) mmol/L POC Total CO2 (24-31) mmol/L Anion Gap (3-11) POC Anion Gap (16-25) mmol/L POC BUN (7-18) mg/dl BUN (6-23) mg/dl Creatinine (0.6-1.4) mg/dl POC Creatinine (0.6-1.3) mg/dl Est Cr Clr Drug Dosing ml/min Est GFR ( Amer) ml/min Est GFR (Non-Af Amer) ml/min BUN/Creatinine Ratio (10-20) Glucose (70-99(Fasting)) mg/dl POC Glucose (70-99) mg/dl POC Glucose (other) (70-99) mg/dl Lactate 1.9 (0.4-2.0) mmol/L Calcium (8.5-10.1) mg/dl POC Ioniz Calcium Steffen (1.12-1.32) mmol/l Magnesium (1.7-2.4) mg/dl Total Bilirubin (0.2-1.0) mg/dl Direct Bilirubin 0.1 AST 25 ALT (7-52) U/L Alkaline Phosphatase (34-104) U/L Troponin I High Sens (0-20) pg/ml Total Protein (6.0-8.3) gm/dl Albumin (3.4-5.0) gm/dl Procalcitonin (0-0.5) ng/ml Urine Color Yellow Urine Appearance Clear (Clear) Urine pH 5.5 (4.5-7.5) Ur Specific [place] 1.015 (1.000-1.030) Urine Protein 1+ H (Negative) Urine Glucose (UA) Negative (Negative) Urine Ketones Trace H (Negative) Urine Blood Trace H (Negative) Urine Nitrite Negative (Negative) Urine Bilirubin Negative (Negative) Urine Urobilinogen Negative (Negative) Ur Leukocyte Esterase Negative (Negative) Urine WBC (Auto) 0 (0-5) /hpf Urine RBC (Auto) 0-4 (0-4) /hpf U Hyaline Cast (Auto) 0 (0-5) /lpf U Epithel Cells (Auto) 0-5 (0-5) /lpf Urine Bacteria (Auto) Negative (Negative) Blood Parasites ID 06/27/22 Range/Units 12:26 WBC RBC Hgb POC Hgb (14.0-18.0) g/dl Hct POC Hct (42-52) % MCV MCH MCHC RDW Std Deviation RDW Coeff of Diana Plt Count MPV Immature Gran % (Auto) Neut % (Auto) Lymph % (Auto) Davison % (Auto) Eos % (Auto) Baso % (Auto) Neut # (Auto) Lymph # (Auto) Davison # (Auto) Eos # (Auto) Baso # (Auto) Immature Gran # (Auto) Absolute Nucleated RBC Nucleated RBC % (auto) Neutrophils % (Manual) Band Neutrophils % Lymphocytes % (Manual) Prolymphocyte % Reactive Lymphs % (Man) Monocytes % (Manual) Eosinophils % (Manual) Basophils % (Manual) Metamyelocytes % (Man) Myelocytes % (Man) Promyelocytes % (Man) Blast Cells % (Manual) Plasma Cell % (Manual) Other Cells % Nucleated RBC % Neutrophils # (Manual) Band Neutrophils # Total Absolute Neuts Lymphocytes # (Manual) Prolymphocyte # Reactive Lymphs # Total Abs Lymphocytes Monocytes # (Manual) Eosinophils # (Manual) Basophils # (Manual) Metamyelocytes # (Man) Myelocytes # (Manual) Promyelocytes # (Man) Blast Cells # (Man) Plasma Cell # (Manual) Other Cells # Nucleated RBCs # (Man) Hypersegmented Neuts Hyposegmented Neuts Hypogranular Neuts Large Granular Lymphs # Lrg Granular Lymphs Hairy Cells Smudge Cells Toxic Granulation Toxic Vacuolation Dohle Bodies Yordy Rods Platelet Estimate Hypogranular Platelets Giant Platelets Platelet Satelliting RBC Morphology Polychromasia Hypochromasia Poikilocytosis Basophilic Stippling Anisocytosis Microcytosis Macrocytosis Spherocytes Pappenheimer Bodies Sickle Cells Target Cells Tear Drop Cells Ovalocytes Stomatocytes Wilcox-Brewton Bodies Echinocytes Acanthocytes (Spur) Rouleaux RBC Agglutinates Schistocytes Sezary Cell POC Sodium (135-144) mmol/L Sodium (136-145) mmol/L POC Potassium (3.3-5.0) mmol/L Potassium POC Chloride (101-112) mmol/L Chloride (98-107) mmol/L Carbon Dioxide (21-32) mmol/L POC Total CO2 (24-31) mmol/L Anion Gap (3-11) POC Anion Gap (16-25) mmol/L POC BUN (7-18) mg/dl BUN (6-23) mg/dl Creatinine (0.6-1.4) mg/dl POC Creatinine (0.6-1.3) mg/dl Est Cr Clr Drug Dosing ml/min Est GFR ( Amer) ml/min Est GFR (Non-Af Amer) ml/min BUN/Creatinine Ratio (10-20) Glucose (70-99(Fasting)) mg/dl POC Glucose 91 (70-99) mg/dl POC Glucose (other) (70-99) mg/dl Lactate (0.4-2.0) mmol/L Calcium (8.5-10.1) mg/dl POC Ioniz Calcium Steffen (1.12-1.32) mmol/l Magnesium (1.7-2.4) mg/dl Total Bilirubin (0.2-1.0) mg/dl Direct Bilirubin AST ALT (7-52) U/L Alkaline Phosphatase (34-104) U/L Troponin I High Sens (0-20) pg/ml Total Protein (6.0-8.3) gm/dl Albumin (3.4-5.0) gm/dl Procalcitonin (0-0.5) ng/ml Urine Color Urine Appearance (Clear) Urine pH (4.5-7.5) Ur Specific [place] (1.000-1.030) Urine Protein (Negative) Urine Glucose (UA) (Negative) Urine Ketones (Negative) Urine Blood (Negative) Urine Nitrite (Negative) Urine Bilirubin (Negative) Urine Urobilinogen (Negative) Ur Leukocyte Esterase (Negative) Urine WBC (Auto) (0-5) /hpf Urine RBC (Auto) (0-4) /hpf U Hyaline Cast (Auto) (0-5) /lpf U Epithel Cells (Auto) (0-5) /lpf Urine Bacteria (Auto) (Negative) Blood Parasites ID Administered Medications Discontinued Medications Acetaminophen (Acetaminophen 325 Mg Tab) 650 mg PO NOW STA Stop: 06/27/22 09:56 Last Admin: 06/27/22 10:19 Dose: 650 mg Documented By: LACIE Sodium Chloride (Nss 1000ml) 2,000 mls @ 999 mls/hr IV .Q2H1M ONE Stop: 06/27/22 11:55 Last Infusion: 06/27/22 13:08 Dose: 0 mls/hr Documented By: Admin: 06/27/22 10:20 Dose: 999 mls/hr Documented By: LACIE Ceftriaxone Sodium (Rocephin) 2,000 mg in 70 mls @ 140 mls/hr IV NOW STA Stop: 06/27/22 10:24 Last Infusion: 06/27/22 12:03 Dose: 0 mls/hr Documented By: Admin: 06/27/22 11:13 Dose: 140 mls/hr Documented By: LACIE Ioversol (Optiray 320 500ml) 115 ml IV ONCE ONE Stop: 06/27/22 12:04 Last Admin: 06/27/22 12:03 Dose: 115 ml Documented By: TELLO Morphine Sulfate (Morphine Sulfate 4 Mg/Ml 1 Ml Carp\Vial) 4 mg IV NOW STA Stop: 06/27/22 12:29 Last Admin: 06/27/22 12:59 Dose: 4 mg Documented By: MAS Imaging Data Radiologist's Impression: Chest X-Ray 06/27/22 09:56 XR chest 1V portable CLINICAL HISTORY: Sepsis TECHNIQUE: Single frontal radiograph of the chest was obtained. Comparison: Comparison is made to chest radiograph 09/25/2019 FINDINGS: No lines and tubes are seen. Calcified aortic knob is seen. Airspace opacities are seen in the bilateral lower lungs. No evidence of pleural effusion or pneumothorax. IMPRESSION: Airspace opacities in bilateral lower lungs may represent atelectasis, pneumonia, and/or aspiration. ACT 112: Negative or not required by law. Electronically signed by: Maico Nguyễn M.D. 06/27/2022 11:26 AM Chest CTA 06/27/22 10:05 CT angio chest PE protocol, CT thoracic spine w con CLINICAL HISTORY: PE CP lower thoracic pain febrile and tachy TECHNIQUE: Multidetector row helical CT of the chest was performed with angiographic protocol. Coronal and sagittal reformations were obtained. Coronal and sagittal MIPS were obtained from the axial data set and were submitted for review. Automated dose lowering techniques and/or adjustment according to patient size were utilized for this exam. Dedicated required portions of the thoracic spine were obtained. Comparison: Comparison is made to CT chest 09/01/2013 FINDINGS: Lungs and pleura: Bilateral pleural effusions are seen with associated atelectasis. Scattered groundglass opacities are seen primarily in the right lung. There is smooth interlobular septal thickening, the pulmonary trunk measures 32 mm in diameter. Heart and pericardium: Heart size is normal. No pericardial effusion. Vessels: No evidence of pulmonary embolism. Mediastinum and vijay: Unremarkable. Chest wall and lower neck: Unremarkable. Abdomen: Unremarkable. Bones: Degenerative changes in the thoracic spine. Posterior fixation hardware is seen in the lower thoracic spine. Anterior cervical fixation hardware is seen. IMPRESSION: 1. No pulmonary embolus is seen. No acute fracture. 2. Smooth interlobular septal thickening compatible with interstitial pulmonary edema. 3. Groundglass opacities may represent alveolar edema or superimposed pneumonia. 4. Small bilateral pleural effusions. ACT 112: Negative or not required by law. Electronically signed by: Maico Nguyễn M.D. 06/27/2022 12:[address] 06/27/22 11:19 CT angio chest PE protocol, CT thoracic spine w con CLINICAL HISTORY: PE CP lower thoracic pain febrile and tachy TECHNIQUE: Multidetector row helical CT of the chest was performed with angiographic protocol. Coronal and sagittal reformations were obtained. Coronal and sagittal MIPS were obtained from the axial data set and were submitted for review. Automated dose lowering techniques and/or adjustment according to pat ient size were utilized for this exam. Dedicated required portions of the thoracic spine were obtained. Comparison: Comparison is made to CT chest 09/01/2013 FINDINGS: Lungs and pleura: Bilateral pleural effusions are seen with associated atelectasis. Scattered groundglass opacities are seen primarily in the right lung. There is smooth interlobular septal thickening, the pulmonary trunk measures 32 mm in diameter. Heart and pericardium: Heart size is normal. No pericardial effusion. Vessels: No evidence of pulmonary embolism. Mediastinum and vijay: Unremarkable. Chest wall and lower neck: Unremarkable. Abdomen: Unremarkable. Bones: Degenerative changes in the thoracic spine. Posterior fixation hardware is seen in the lower thoracic spine. Anterior cervical fixation hardware is seen. IMPRESSION: 1. No pulmonary embolus is seen. No acute fracture. 2. Smooth interlobular septal thickening compatible with interstitial pulmonary edema. 3. Groundglass opacities may represent alveolar edema or superimposed pneumonia. 4. Small bilateral pleural effusions. ACT 112: Negative or not required by law. Electronically signed by: Maico Nguyễn M.D. 06/27/2022 12:26 PM Abdomen/Pelvis CT 06/27/22 11:20 CT OF THE ABDOMEN AND PELVIS WITH CONTRAST CLINICAL HISTORY: Sepsis. Abdominal and back pain. COMPARISON STUDY: CT of the abdomen pelvis November 11, 2019. Renal ultrasound January 26, 2022. TECHNIQUE: Following IV administration of 115 mL of Optiray, axial images of the abdomen and pelvis were obtained from the lung bases to the proximal femurs. Tami ges were reviewed in the axial, sagittal, and coronal planes. IV contrast was administered without complication. Automated exposure control was utilized for the study. A dose lowering technique was utilized adhering to the principles of ALARA. FINDINGS: Please note that the chest CT will be reported separately. Multifocal pericardial calcification is unchanged. Small bilateral pleural effusions are noted. Interlobular septal thickening is present. Subpleural ground glass opacities are also noted. No pneumatosis, free air or portal venous gas is present. There is hepatic steatosis. No biliary or pancreatic ductal dilatation. Spleen, adrenal glands and pancreas are unremarkable as is the left kidney. 2 right renal lesions were shown to represent cysts on prior renal ultrasound. There is no hydronephrosis. There is mild pericholecystic stranding. However, the gallbladder is not distended. There is no evidence for a bowel obstruction. The caliber and wall thickness of small and large bowel are normal. The appearance of the appendix is unchanged. Specifically, the appendix is mildly dilated, measuring 9 mm in caliber. There is wall thickening of the appendix with numerous appendiceal diverticula. No associated inflammation is noted. There is no lymphadenopathy. There is no ascites. Postoperative findings within the spine are noted, including a T11-S1 posterior fusion with multilevel posterior decompression and discectomy. No acute fracture is present. Left T11 pedicle screw is fractured. This is unchanged. Otherwise, hardware is intact. Lateral hernia is noted. This contains a small portion of a loop of small bowel. No resultant bowel obstruction. IMPRESSION: 1. No acute process within the abdomen or pelvis. 2. Small bilateral pleural effusions with evidence for pulmonary edema within the lower lungs. The chest CT will be reported separately. 3. Unchanged appearance of the appendix which is mildly dilated with wall thickening and contains numerous diverticula. No evidence for acute appendicitis. This remains pathologically indeterminate and nonemergent surgical consultation is recommended if not already obtained. 4. No bowel obstruction. No bowel wall thickening. 5. Unchanged postoperative findings within the spine. No acute fractures. ACT 112: Negative or not required by law. Electronically signed by: Issac Vu M.D. 06/27/2022 12:30 PM Discharge Plan Visit Data Chief Complaint: Shortness of Breath/Dyspnea Stated Complaint: SOB, BACK PAIN, TACHYCARDIA ED Provider: Francis Amaral Discharge Problem: Atrial flutter with rapid ventricular response, CHF (congestive heart failure), Sepsis, Pleural effusion, Hypoxia Forms Stand Alone Forms: My [facility] Prescriptions Prescriptions: No Action colchicine 0.6 mg Tablet 0.6 mg PO DAILY PRN (Reason: gout) multivitamin Tablet 1 tab PO HS metformin 500 mg Tablet 500 mg PO HS diazepam [Valium] 5 mg tablet 5 mg PO BID paroxetine HCl [Paxil] 40 mg tablet 40 mg PO HS lisinopril [Zestril] 20 mg tablet 20 mg PO HS paroxetine HCl 20 mg tablet 20 mg PO HS oxycodone 5 mg tablet 5 mg PO TID PRN (Reason: Pain) rosuvastatin 40 mg tablet 40 mg PO HS Referrals Referrals: Ilia Gonzalez MD [Physician] -
[2022-06-27 10:54] LABS: iSTAT Creatinine 1.1 mg/dl (0.6-1.3); iSTAT Hemoglobin 9.2 g/dl (14.0-18.0); iSTAT Ionized Calcium 0.95 mmol/l (1.12-1.32); iSTAT Potassium 3.2 mmol/L (3.3-5.0)
[2022-06-27 11:12] LABS: Alanine Aminotransferase 18 U/L (7-52); Albumin Level 4.2 gm/dl (3.4-5.0); Alkaline Phosphatase 85 U/L (34-104); Anion Gap 11 (3-11); BUN Creatinine Ratio 18.1 (10-20); Bilirubin,Total 0.6 mg/dl (0.2-1.0); Blood Urea Nitrogen 27 mg/dl (6-23); Calcium 9.2 mg/dl (8.5-10.1); Carbon Dioxide 21 mmol/L (21-32); Chloride 108 mmol/L (98-107); Creatinine Clr Calc Pharmacy 56.5 ml/min; Est GFR (African American) 54.3 ml/min; Est GFR (Non-African American) 46.9 ml/min; Glucose 87 mg/dl (70-99(Fasting)); Magnesium 1.2 mg/dl (1.7-2.4); Sodium 140 mmol/L (136-145); Total Protein 6.9 gm/dl (6.0-8.3)
--- NOTE | 2022-06-27 11:28 | XRay Report ---
XR chest 1V portable CLINICAL HISTORY: Sepsis TECHNIQUE: Single frontal radiograph of the chest was obtained. Comparison: Comparison is made to chest radiograph 09/25/2019 FINDINGS: No lines and tubes are seen. Calcified aortic knob is seen. Airspace opacities are seen in the bilate ral lower lungs. No evidence of pleural effusion or pneumothorax. IMPRESSION: Airspace opacities in bilateral lower lungs may represent atelectasis, pneumonia, and/or aspiration. ACT 112: Negative or not required by law. Electronically signed by: Maico Nguyễn M.D. 06/27/2022 11:26 AM
[2022-06-27 11:30] LABS: Basophils # (auto) 0.03 K/uL (0-0.2); Basophils % (auto) 0.3 %; Eosinophils # (auto) 0.07 K/uL (0-0.50); Eosinophils % (auto) 0.6 %; Hematocrit (blood only) 33.1 % (42.0-52.0); Hemoglobin 11.3 g/dl (14.0-18.0); Immature Granulocytes # (auto) 0.22 K/uL (0.01-0.20); Immature Granulocytes % (auto) 1.9 %; Lymphocytes # (auto) 0.91 K/uL (1.2-3.4); Lymphocytes % (auto) 7.9 %; Mean Corpuscular Hemoglobin 32.9 pg (25.0-34.0); Mean Corpuscular Hgb Conc 34.1 g/dL (32.0-36.0); Mean Corpuscular Volume 96.5 fL (80.0-100.0); Mean Platelet Volume 9.6 fL (9.4-12.4); Monocytes # (auto) 0.57 K/uL (0.11-0.59); Monocytes % (auto) 4.9 %; Neutrophils # (auto) 9.79 K/uL (1.40-6.50); Neutrophils % (auto) 84.4 %; Platelet Count 178 K/uL (130-400); RDW Coefficient of Variation 13.3 % (11.5-14.5); RDW Standard Deviation 46.7 fL (36.4-46.3); Red Blood Count 3.43 M/uL (4.70-6.10); White Blood Count 11.59 K/ul (4.8-10.8)
[2022-06-27 11:41] LABS: Appearance Urine Clear (Clear); Bacteria Urine Automated Negative (Negative); Bilirubin Urine Negative (Negative); Blood Urine Trace (Negative); Cast Urine Automated 0 /lpf (0-5); Color Urine Yellow; Epithelial Cell Urine Auto 0-5 /lpf (0-5); Glucose Urine UA Negative (Negative); Ketones Urine Trace (Negative); Leukocyte Esterase Urine Negative (Negative); Nitrite Urine Negative (Negative); Protein Urine 1+ (Negative); RBC Urine Automated 0-4 /hpf (0-4); Specific Gravity Urine 1.015 (1.000-1.030); Urobilinogen Urine Negative (Negative); WBC Urine Automated 0 /hpf (0-5); pH Urine 5.5 (4.5-7.5)
[2022-06-27 11:52] LABS: Bilirubin Direct 0.1 mg/dl (0-0.2); Potassium 4.2 mmol/L (3.5-5.1)
[2022-06-27] MEDS ORDERED: OPTIRAY 320 500ml IV ONE (12:03)
[2022-06-27] MEDS ORDERED: MoRPHine SULFATE 4 MG/ML 1 ML CARP\\VIAL IV STA (12:28)
--- NOTE | 2022-06-27 12:28 | CT Scan Report ---
CT angio chest PE protocol, CT thoracic spine w con CLINICAL HISTORY: PE CP lower thoracic pain febrile and tachy TECHNIQUE: Multidetector row helical CT of the chest was performed with angiographic protocol. Chang l and sagittal reformations were obtained. Coronal and sagittal MIPS were obtained from the axial viraj a set and were submitted for review. Automated dose lowering techniques and/or adjustment according to patient size were utilized for this exam. Dedicated required portions of the thoracic spine were o btained. Comparison: Comparison is made to CT chest 09/01/2013 FINDINGS: Lungs and pleura: Bilateral pleural effusions are seen with associated atelectasis. Scattered groundg lass opacities are seen primarily in the right lung. There is smooth interlobular septal thickening, the pulmonary trunk measures 32 mm in diameter. Heart and pericardium: Heart size is normal. No pericardial effusion. Vessels: No evidence of pulmonary embolism. Mediastinum and vijay: Unremarkable. Chest wall and lower neck: Unremarkable. Abdomen: Unremarkable. Bones: Degenerative changes in the thoracic spine. Posterior fixation hardware is seen in the lower t horacic spine. Anterior cervical fixation hardware is seen. IMPRESSION: 1. No pulmonary embolus is seen. No acute fracture. 2. Smooth interlobular septal thickening compatible with interstitial pulmonary edema. 3. Groundglass opacities may represent alveolar edema or superimposed pneumonia. 4. Small bilateral pleural effusions. ACT 112: Negative or not required by law. Electronically signed by: Maico Nguyễn M.D. 06/27/2022 12:26 PM
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
--- NOTE | 2022-06-27 12:32 | CT Scan Report ---
CT OF THE ABDOMEN AND PELVIS WITH CONTRAST CLINICAL HISTORY: Sepsis. Abdominal and back pain. COMPARISON STUDY: CT of the abdomen pelvis November 11, 2019. Renal ultrasound January 26, 2022. TECHNIQUE: Following IV administration of 115 mL of Optiray, axial images of the abdomen and pelvis w ere obtained from the lung bases to the proximal femurs. Images were reviewed in the axial, sagittal, and coronal planes. IV contrast was administered without complication. Automated exposure control w as utilized for the study. A dose lowering technique was utilized adhering to the principles of ROSE Brar. FINDINGS: Please note that the chest CT will be reported separately. Multifocal pericardial calcifica tion is unchanged. Small bilateral pleural effusions are noted. Interlobular septal thickening is pre sent. Subpleural ground glass opacities are also noted. No pneumatosis, free air or portal venous gas is present. There is hepatic steatosis. No biliary or pancreatic ductal dilatation. Spleen, adrenal glands and pancreas are unremarkable as is the left kidney. 2 right renal lesions were shown to repre sent cysts on prior renal ultrasound. There is no hydronephrosis. There is mild pericholecystic stran ding. However, the gallbladder is not distended. There is no evidence for a bowel obstruction. The c aliber and wall thickness of small and large bowel are normal. The appearance of the appendix is unch anged. Specifically, the appendix is mildly dilated, measuring 9 mm in caliber. There is wall thicken ing of the appendix with numerous appendiceal diverticula. No associated inflammation is noted. There is no lymphadenopathy. There is no ascites. Postoperative findings within the spine are noted, inclu ding a T11-S1 posterior fusion with multilevel posterior decompression and discectomy. No acute fract ure is present. Left T11 pedicle screw is fractured. This is unchanged. Otherwise, hardware is intact . Lateral hernia is noted. This contains a small portion of a loop of small bowel. No resultant bowel obstruction. IMPRESSION: 1. No acute process within the abdomen or pelvis. 2. Small bilateral pleural effusions with evidence for pulmonary edema within the lower lungs. The est CT will be reported separately. 3. Unchanged appearance of the appendix which is mildly dilated with wall thickening and contains num erous diverticula. No evidence for acute appendicitis. This remains pathologically indeterminate and nonemergent surgical consultation is recommended if not already obtained. 4. No bowel obstruction. No bowel wall thickening. 5. Unchanged postoperative findings within the spine. No acute fractures. ACT 112: Negative or not required by law. Electronically signed by: Issac uV M.D. 06/27/2022 12:30 PM
--- NOTE | 2022-06-27 12:47 | Electrocardiogram Report ---
Test Reason : Blood Pressure : / mmHG Vent. Rate : 160 BPM Atrial Rate : 374 BPM P-R Int : 000 ms QRS Dur : 072 ms QT Int : 288 ms P-R-T Axes : 000 031 030 degrees QTc Int : 469 ms Poor data quality, interpretation may be adversely affected Atrial flutter with premature ventricular or aberrantly conducted complexes Nonspecific ST abnormality Abnormal ECG When compared with ECG of 03-OCT-2019 20:32, atrial flutter has replaced Sinus rhythm Vent. rate has increased BY [address] now depressed in Anterior leads Reconfirmed by Kyaw Guzman ([id number]) on 06/27/2022 12:56:54 PM Referred By: Confirmed By:Chaz Guzman
--- NOTE | 2022-06-27 12:48 | Electrocardiogram Report ---
Test Reason : Blood Pressure : / mmHG Vent. Rate : 117 BPM Atrial Rate : 117 BPM P-R Int : 000 ms QRS Dur : 076 ms QT Int : 344 ms P-R-T Axes : 000 029 043 degrees QTc Int : 479 ms Sinus rhythm with PACs and possible aberrant conduction Low voltage QRS Borderline ECG When compared with ECG of 27-JUN-2022 09:43, (unconfirmed) Sinus rhythm has replaced atrial fibrillation Confirmed by Kyaw Guzman ([id number]) on 06/27/2022 12:48:08 PM Referred By: REFERRED SELF Confirmed By:Chaz Guzman
[2022-06-27 14:42] LABS: Adenovirus PCR Not Detected (NotDetected); Bordetella parapertussis PCR Not Detected (NotDetected); Bordetella pertussis PCR Not Detected (NotDetected); Chlamydia pneumoniae PCR Not Detected (NotDetected); Coronavirus 229E PCR Not Detected (NotDetected); Coronavirus CoV-2 (COVID19)PCR Not Detected (NotDetected); Coronavirus HKU1 PCR Not Detected (NotDetected); Coronavirus NL63 PCR Not Detected (NotDetected); Coronavirus OC43PCR Not Detected (NotDetected); Human Metapneumovirus PCR Not Detected (NotDetected); Influenza A PCR Not Detected (NotDetected); Influenza B PCR Not Detected (NotDetected); Mycoplasma pneumoniae PCR Not Detected (NotDetected); Parainfluenza Virus 1 PCR Not Detected (NotDetected); Parainfluenza Virus 2 PCR Not Detected (NotDetected); Parainfluenza Virus 3 PCR Not Detected (NotDetected); Parainfluenza Virus 4 PCR Not Detected (NotDetected); Respiratory Syncytial VirusPCR Not Detected (NotDetected); Rhinovirus/Enterovirus PCR Not Detected (NotDetected)
[2022-06-27] MEDS ORDERED: DEXTROSE 50% 50 ML SYRINGE IV PRN (15:59)
[2022-06-27] MEDS ORDERED: GLUCAGON FOR INJ 1 MG VIAL SQ PRN (15:59)
[2022-06-27] MEDS ORDERED: GLUCOSE 40% GEL 15 GM TUBE PO PRN (15:59)
[2022-06-27] MEDS ORDERED: oxyCODONE HCL IR 5 MG TAB (IMMEDIATE RELEASE) PO PRN (15:59)
[2022-06-27] MEDS ORDERED: ACETAMINOPHEN 325 MG TAB PO PRN (15:59)
[2022-06-27] MEDS ORDERED: GLUCOSE 10 TAB/TUBE PO PRN (15:59)
[2022-06-27] MEDS ORDERED: CARBOHYDRATES FOR HYPOGLYCEMIA PO PRN (15:59)
[2022-06-27] MEDS: MAGNESIUM SULFATE / D5W 1 GM/100 ML BAG IV SCH ×4 (16:10→20:23)
[2022-06-27] MEDS: INSULIN ASPART PER UNIT SC SCH ×2 (17:18→19:50)
[2022-06-27] MEDS: MoRPHine SULFATE 4 MG/ML 1 ML CARP\\VIAL IV PRN ×2 (17:41→22:02)
[2022-06-27] MEDS: AZITHROMYCIN 250 MG TAB PO SCH (17:52)
[2022-06-27] MEDS: ROSUVASTATIN CALCIUM 20 MG TAB PO SCH (19:27)
[2022-06-27] MEDS: PARoxetine HCL 20 MG TAB PO SCH (19:27)
[2022-06-27] MEDS: ACETAMINOPHEN 500 MG TAB PO SCH (19:28)
[2022-06-27] MEDS: MULTIVITAMIN TAB PO SCH (19:28)
[2022-06-27] MEDS: lisinopril 20 MG TAB PO SCH (19:28)
[2022-06-27] MEDS: diazePAM 5 MG TABLET PO SCH (20:23)
[2022-06-27] MEDS ORDERED: hydrALAZINE HCL 20 MG/ML VIAL IV PRN (20:29)
[2022-06-27] MEDS: HEPARIN SOD 5,000 UNIT/0.5 ML VIAL SQ SCH (20:48)
[2022-06-28] MEDS: MoRPHine SULFATE 4 MG/ML 1 ML CARP\\VIAL IV PRN ×4 (02:12→21:21)
[2022-06-28] MEDS: METOPROLOL TARTRATE 1 MG/ML VIAL IV PRN ×3 (02:12→03:37)
[2022-06-28] MEDS ORDERED: METOPROLOL TARTRATE 25 MG TAB PO ONE (03:37)
[2022-06-28] MEDS ORDERED: POTASSIUM CHLORIDE CRTAB 20 MEQ TABCR PO ONE (03:39)
[2022-06-28] MEDS: HEPARIN SOD 5,000 UNIT/0.5 ML VIAL SQ SCH ×2 (04:04→14:05)
[2022-06-28 06:11] LABS: Basophils # (auto) 0.02 K/uL (0-0.2); Basophils % (auto) 0.2 %; Eosinophils # (auto) 0.21 K/uL (0-0.50); Eosinophils % (auto) 1.9 %; Hematocrit (blood only) 31.2 % (42.0-52.0); Hemoglobin 10.6 g/dl (14.0-18.0); Immature Granulocytes # (auto) 0.04 K/uL (0.01-0.20); Immature Granulocytes % (auto) 0.4 %; Lymphocytes # (auto) 1.27 K/uL (1.2-3.4); Lymphocytes % (auto) 11.6 %; Mean Corpuscular Volume 97.2 fL (80.0-100.0); Mean Platelet Volume 9.8 fL (9.4-12.4); Monocytes # (auto) 0.55 K/uL (0.11-0.59); Neutrophils # (auto) 8.85 K/uL (1.40-6.50); Neutrophils % (auto) 80.9 %; Platelet Count 189 K/uL (130-400); RDW Coefficient of Variation 13.3 % (11.5-14.5); RDW Standard Deviation 46.6 fL (36.4-46.3); Red Blood Count 3.21 M/uL (4.70-6.10); White Blood Count 10.94 K/ul (4.8-10.8)
[2022-06-28 06:26] LABS: BUN Creatinine Ratio 15.1 (10-20); Calcium 8.5 mg/dl (8.5-10.1); Creatinine Clr Calc Pharmacy 59.8 ml/min; Est GFR (African American) 55.7 ml/min; Magnesium 1.7 mg/dl (1.7-2.4); Potassium 4.4 mmol/L (3.5-5.1)
[2022-06-28 06:36] LABS: Thyroid Stimulating Hormone 4.945 uIu/ml (0.300-4.500)
[2022-06-28 06:57] LABS: Estimated Average Glucose 120 mg/dl; Hemoglobin A1C 5.8 % (4.5-5.6)
[2022-06-28 07:11] LABS: T4 Free Thyroxine 0.81 ng/dl (0.61-1.60)
[2022-06-28 07:36] LABS: Troponin I High Sensitivity 33.8 pg/ml (0-20)
[2022-06-28] MEDS ORDERED: MAGNESIUM SULFATE / D5W 1 GM/100 ML BAG IV ONE (08:00)
--- NOTE | 2022-06-28 08:11 | Hospitalist Progress Note ---
Date of Service June 28, 2022 Assessment & Plan (1) Sepsis: Plan: Sawyer Coleman is a 72 yo male with PMH diabetes, hepatitis C, previous intravenous drug use, hypertension, back pain, spinal stenosis, alcohol dependence, who presents to the ER for fever, tachycardia, shortness of breath, and back pain. On admission he met SIRS criteria and was in atrial fl utter/fibrillation now converted to sinus rhythm. Sepsis - Met SIRS 3/4 on admission (tachycardic, tachypneic, febrile) - Lactate 2.6 -> 1.9 with 2L NSS bolus, WBC 10.94 - source most likely PNA given b/t opacities and small pleural effusions - source less likely from hardware in his back but pending blood cultures, negative at 24 hours - Biofire and UA negative - cover for bacterial PNA with ceftriaxone + azithromycin (2) Atrial flutter with rapid ventricular response: Plan: - Suspect secondary to sepsis and pneumonia and inciting cause - Mg and K replaced - TSH 4.945, T4 0.81 - TTE: EF 50-55%, right ventricular systolic pressure elevated 30-40mmg - CHADVasc 3 (moderate/high risk), recommend anticoagulation Eliquis - Recommend outpatient cardiology (3) Cervical stenosis of spinal canal: Plan: - Absence of red flags with regards to his back pain - Significant surgical history, hardware T10-S1, blood cx pending - Suspect cause in setting of a. fib with RVR making him more short of breath and acutely making his back pain worse. - Tyelenol 1,000mg TID, Oxycodone 5mg q6h PRN, Morphine 2mg q4h PRN - continue to monitor (4) Chronic kidney disease with active medical management without dialysis, stage 3 (moderate): Plan: - CKD stage G3b/A2 (moderate impairment). Baseline Cr 1.6 - 1.9 w/ mGFR 39.6 cc/min - Current BUN 22, Cr 1.46, GFR 48 (5) 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, type 2: Plan: - HbA1C 5.8 - Hold metformin Novolog: --Goal BSG Range: Low 110 mg/dL, High 140 mg/dL --Correction Factor: 45 mg/dL/unit No carb ratio --BSGs ACHS if eating, q6h if npo (6) Hypertension: Plan: - Continue lisinopril 20mg PO HS (7) Hyperlipidemia: Plan: - Continue rosuvastatin 40mg HS (8) Hypomagnesemia: Plan: - Mg level 1.2. 2g IV over 1 hour each followed by 2g IV over 2 hours each, - 06/28 AM 1.7, repleted (9) Anxiety: Plan: - Continue paroxetine - continue diazepam (10) Hyponatremia: Plan: - Sodium 140 on presentation, 133 following hydration 2L NS - Continue to monitor Plan VTE Prophylaxis - heparin 5000 units SQ q8h Diet - T2DM Disposition - admit to PCU/Tele Code - Full Admission and Anticipated Discharge Date Admission Date: June 27, 2022 Supervising Physician Co-Signing Physician Notes Attending attestation Pt seen and examined in concert with Dr. Gomez, . Dr. Milan, . In agreement with the documented findings as noted in the resident documentation with any exceptions or additions as noted here. Resting comfortably in bed without acute complaint - tolerating abx therapy well and in sinus rhythm at time of examination. On exam, S1/S2 nl RRR no MCG. CTAB. Abd NT/ND BS+ve Sepsis in the setting of bacterial PNA - f/u BCx, continue abx therapy as noted above Atrial fibrillation/flutter with RVR - start anticoagulation, consider rate limiting therapy Else see student/resident documentation as noted. Justice Coleman is a 72-year-old male who presents to the ER with past medical history of diabetes, hepatitis C, previous intravenous drug use, hypertension, back pain, spinal stenosis, alcohol dependence, who presents to the ER for fever, tachycardia, shortness of breath, and back pain. He has a history of chronic back pain and over the past 2-3 days developed a worsening of the pain as well as shortness of breath at rest and a racing heart that he woke up with in the middle of the night. This has never happened before. He endorses a cough but no chest pain, nausea/vomiting, diarrhea, lightheadedness or headache. Movement is limited by chromic back pain at baseline. Over the past 1.5 year, he has had 11 surgeries (4 on back, 1 on neck) that have reduced is activity significantly. He rarely drinks alcohol due to use of narcotic to relieve his pain but did drink over the past several days. He will have 2-3 drinks a day of rum. Today his breathing feels improved at rest and rates the back pain a 6/10. Review of Systems Review of Systems: See HPI Physical Exam Constitutional: WD/WN, vitals as above Eyes: PERRL, conjunctivae normal, anicteric sclerae Respiratory: normal respiratory effort, lungs clear to auscultation Cardiovascular: RRR, no murmur, no edema Gastrointestinal (Abdomen): normal bowel sounds, soft, nontender, no hepatosplenomegaly Psychiatric: A+Ox3, euthymic affect Results & Data Results & Data ([facility]) Vital Signs (Past 12 Hours) Vital Signs Temp Pulse Pulse Resp BP BP Pulse Ox 06/28/22 07:30 82 06/28/22 07:16 37.3 C 86 20 135/89 92 06/28/22 04:30 84 06/28/22 04:03 127 H 38 H 150/94 H 90 06/28/22 03:37 146 H 135/74 06/28/22 02:52 123 H 131/91 06/28/22 02:25 127 H 156/112 H 06/28/22 02:42 139 H 149/100 H 06/28/22 02:12 142 H 149/98 H 06/28/22 01:08 36.6 C 135 H 20 150/106 H 96 06/27/22 22:46 102 H 06/27/22 22:30 37 C 87 16 139/87 95 06/27/22 20:42 103 H 144/95 H O2 Del Method O2 Flow Rate 06/28/22 07:30 06/28/22 07:16 Nasal Cannula 2 06/28/22 04:30 06/28/22 04:03 Nasal Cannula 2 06/28/22 03:37 06/28/22 02:52 06/28/22 02:25 06/28/22 02:42 06/28/22 02:12 06/28/22 01:08 Nasal Cannula 2 06/27/22 22:46 06/27/22 22:30 Nasal Cannula 2 06/27/22 20:42 Laboratory Results 06/28/22 05:41 06/28/22 05:41 (5) 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, type 2 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 complication status: without complication 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 usp insulin use: without termite treater use Qualified Code(s): E11.9 - Type 2 diabetes mellitus without complications
[2022-06-28] MEDS: INSULIN ASPART PER UNIT SC SCH ×4 (08:16→21:15)
[2022-06-28] MEDS: ACETAMINOPHEN 500 MG TAB PO SCH ×3 (09:56→19:57)
[2022-06-28] MEDS: AZITHROMYCIN 250 MG TAB PO SCH (09:58)
[2022-06-28] MEDS: diazePAM 5 MG TABLET PO SCH ×2 (09:58→19:55)
[2022-06-28] MEDS: cefTRIAXone SODIUM 2,000 MG in DEXTROSE 5% 50 ML IV SCH (10:39)
--- NOTE | 2022-06-28 10:42 | XCELERA ---
[id number]
[2022-06-28] MEDS ORDERED: oxyCODONE HCL IR 5 MG TAB (IMMEDIATE RELEASE) PO PRN (11:03)
[2022-06-28] MEDS: oxyCODONE HCL IR 5 MG TAB (IMMEDIATE RELEASE) PO PRN ×2 (13:18→19:56)
[2022-06-28] MEDS: MULTIVITAMIN TAB PO SCH (19:55)
[2022-06-28] MEDS: APIXABAN 5 MG TABLET PO SCH (19:55)
[2022-06-28] MEDS: PARoxetine HCL 20 MG TAB PO SCH (19:55)
[2022-06-28] MEDS: ROSUVASTATIN CALCIUM 20 MG TAB PO SCH (19:55)
[2022-06-28] MEDS: lisinopril 20 MG TAB PO SCH (19:57)
[2022-06-29] MEDS: oxyCODONE HCL IR 5 MG TAB (IMMEDIATE RELEASE) PO PRN ×4 (02:33→20:33)
[2022-06-29] MEDS ORDERED: METOPROLOL TARTRATE 25 MG TAB PO ONE (02:51)
[2022-06-29] MEDS: MoRPHine SULFATE 4 MG/ML 1 ML CARP\\VIAL IV PRN ×4 (03:09→22:14)
[2022-06-29] MEDS: INSULIN ASPART PER UNIT SC SCH ×4 (07:24→20:08)
--- NOTE | 2022-06-29 07:58 | Hospitalist Progress Note ---
Date of Service June 29, 2022 Assessment & Plan (1) Sepsis: Plan: Sawyer Coleman is a 72 yo male with PMH diabetes, hepatitis C, previous intravenous drug use, hypertension, back pain, spinal stenosis, alcohol dependence, who presents to the ER for fever, tachycardia, shortness of breath, and back pain. On admission he met SIRS criteria and was in atrial fl utter/fibrillation now converted to sinus rhythm. Sepsis - Met SIRS 3/4 on admission (tachycardic, tachypneic, febrile) - Lactate 2.6 -> 1.9 with 2L NSS bolus, WBC 10.94 - source most likely PNA given b/t opacities and small pleural effusions - source less likely from hardware in his back but pending blood cultures, negative at 24 hours - Biofire and UA negative - cover for bacterial PNA with ceftriaxone + azithromycin 500mg - repeat CXR 06/30 (2) Atrial flutter with rapid ventricular response: Plan: - Suspect secondary to sepsis and pneumonia and inciting cause - Mg and K replaced - TSH 4.945, T4 0.81 - TTE: EF 50-55%, right ventricular systolic pressure elevated 30-40mmg - CHADVasc 3 (moderate/high risk), started anticoagulation Eliquis 5mg BID - Cardiology consulted, started on 25 mg metoprolol BID - F/u with cardiology outpatient (3) Cervical stenosis of spinal canal: Plan: - Absence of red flags with regards to his back pain - Significant surgical history, hardware T10-S1, blood cx pending - Suspect cause in setting of a. fib with RVR making him more short of breath and acutely making his back pain worse. - Tyelenol 1,000mg TID, Oxycodone 5mg q6h PRN, Morphine 2mg q4h PRN - Orthopedic outpatient f/u in one month - continue to monitor (4) Chronic kidney disease with active medical management without dialysis, stage 3 (moderate): Plan: - CKD stage G3b/A2 (moderate impairment). Baseline Cr 1.6 - 1.9 w/ mGFR 39.6 cc/min - Current BUN 22, Cr 1.46, GFR 48 (5) 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, type 2: Plan: - HbA1C 5.8 - Hold metformin Novolog: --Goal BSG Range: Low 110 mg/dL, High 140 mg/dL --Correction Factor: 45 mg/dL/unit No carb ratio --BSGs ACHS if eating, q6h if npo (6) Hypertension: Plan: - Continue lisinopril 20mg PO HS (7) Hyperlipidemia: Plan: - Continue rosuvastatin 40mg HS (8) Hypomagnesemia: Plan: - Mg level 1.2. 2g IV over 1 hour each followed by 2g IV over 2 hours each, - 06/28 AM 1.7, repleted (9) Anxiety: Plan: - Continue paroxetine - continue diazepam (10) Hyponatremia: Plan: - Sodium 140 on presentation, 133 following hydration 2L NS, appears to be baseline - Continue to monitor Plan VTE Prophylaxis - Eliquis 5mg BID Diet - T2DM Disposition - admit to PCU/Tele Code - Full Admission and Anticipated Discharge Date Admission Date: June 27, 2022 Supervising Physician Co-Signing Physician Notes I also saw the patient with the medical student resident physician and confirmed guerrero portions of the history and the physical examination. I agree with the impression and plan as noted in the documentation above, and as summarized below. Upon our midmorning exam, the patient was semireclined in bed. He reported less shortness of breath and increased ease of breathing since dosed with pain medication this morning. He describes increased back painsimilar location to his baseline, just increased discomfort. In review of the EMR, he has rather extensive history of back pain/surgery. Exam 126/84, 72, 18, 36.8, 91% on room air Pleasant. Talkative. Heart regular rate and rhythm. Respirations nonlabored. Lungs clear except for faint rales at the bases bilaterally Abdomen is soft nontender. Nondistended. Data Hemoglobin 10 Sodium 133, potassium 4.4, BUN 23, creatinine 1.65 Magnesium 1.6 Micro Blood cultures drawn 06/27/2022 show no growth after 48 hours Impression and Plan Sepsis, likely PNA based on CT imaging Generally improving Continue ceftriaxone/azithromycin Atrial flutter versus atrial fibrillation Cardiology consultation appreciated Continue systemic anticoagulation with apixaban Add metoprolol 25 mg p.o. twice daily Acute on chronic back pain Probably exacerbated the setting of acute illness, increased bedrest Continue current pain medication regimen Chronic kidney disease, stage III Baseline creatinine 1.61.9 Improved Caution with potentially nephrotoxic medications Follow BMP Additional per student/resident documentation above Subjective Normcrystal Coleman is a 72-year-old male who presents to the ER with past medical history of diabetes, hepatitis C, previous intravenous drug use, hypertension, back pain, spinal stenosis, alcohol dependence, who presents to the ER for fever, tachycardia, shortness of breath, and back pain. Sawyer had worsened shortness of breath and back pain last night as well as subjective fevers and chills. He was able to sleep following one dose of morphine for a few hours which also helped breathing. He was not on oxygen overnight. Per telemetry he had a run of Afib vs. flutter overnight at 2am and converted following 1 dose of Metoprolol within 2 hours. Today he feels continued shortness of breath at rest as well as 8/10 back pain located at the central spine, neck, and radiating outwards. Review of Systems Review of Systems: See HPI Physical Exam Constitutional: WD/WN, vitals as above Eyes: PERRL, conjunctivae normal, anicteric sclerae Respiratory: normal respiratory effort, lungs clear to auscultation (Wheeze right lower lung field) Cardiovascular: RRR, no murmur, no edema Gastrointestinal (Abdomen): normal bowel sounds, soft, nontender, no hepatospl enomegaly Musculoskeletal: +point tenderness T12/L1 Psychiatric: A+Ox3, euthymic affect Results & Data Results & Data ([facility]) Vital Signs (Past 12 Hours) Vital Signs Temp Pulse Pulse Pulse Resp BP Pulse Ox 06/29/22 07:40 65 06/29/22 07:20 37.7 C H 87 20 131/89 90 06/29/22 04:02 90 06/29/22 03:17 112 H 163/107 H 06/29/22 02:28 37.9 C H 136 H 22 158/119 H 90 06/28/22 22:53 36.8 C 103 H 24 171/102 H 90 06/28/22 22:48 95 H O2 Del Method 06/29/22 07:40 06/29/22 07:20 Room Air 06/29/22 04:02 06/29/22 03:17 06/29/22 02:28 Room Air 06/28/22 22:53 Room Air 06/28/22 22:48 Laboratory Results 06/29/22 07:16 06/29/22 07:16 (5) 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, type 2 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 complication status: without complication 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 matlab developer insulin use: without matlab developer use Qualified Code(s): E11.9 - Type 2 diabetes mellitus without complications
[2022-06-29 08:03] LABS: Basophils # (auto) 0.03 K/uL (0-0.2); Basophils % (auto) 0.3 %; Eosinophils # (auto) 0.27 K/uL (0-0.50); Hematocrit (blood only) 29.1 % (42.0-52.0); Immature Granulocytes # (auto) 0.05 K/uL (0.01-0.20); Immature Granulocytes % (auto) 0.6 %; Lymphocytes # (auto) 1.25 K/uL (1.2-3.4); Lymphocytes % (auto) 13.8 %; Mean Corpuscular Hemoglobin 33.1 pg (25.0-34.0); Mean Corpuscular Hgb Conc 34.4 g/dL (32.0-36.0); Mean Corpuscular Volume 96.4 fL (80.0-100.0); Mean Platelet Volume 10.1 fL (9.4-12.4); Monocytes # (auto) 0.58 K/uL (0.11-0.59); Monocytes % (auto) 6.4 %; Neutrophils # (auto) 6.88 K/uL (1.40-6.50); Neutrophils % (auto) 75.9 %; Platelet Count 171 K/uL (130-400); RDW Coefficient of Variation 13.2 % (11.5-14.5); RDW Standard Deviation 45.6 fL (36.4-46.3); Red Blood Count 3.02 M/uL (4.70-6.10); White Blood Count 9.06 K/ul (4.8-10.8)
[2022-06-29 08:11] LABS: BUN Creatinine Ratio 13.9 (10-20); Calcium 8.9 mg/dl (8.5-10.1); Creatinine Clr Calc Pharmacy 52.9 ml/min; Est GFR (Non-African American) 41.4 ml/min; Magnesium 1.6 mg/dl (1.7-2.4); Potassium 4.4 mmol/L (3.5-5.1)
[2022-06-29] MEDS: ACETAMINOPHEN 500 MG TAB PO SCH ×3 (08:35→19:58)
[2022-06-29] MEDS: AZITHROMYCIN 250 MG TAB PO SCH (08:35)
[2022-06-29] MEDS: APIXABAN 5 MG TABLET PO SCH ×2 (08:35→19:58)
[2022-06-29] MEDS: cefTRIAXone SODIUM 2,000 MG in DEXTROSE 5% 50 ML IV SCH (08:44)
[2022-06-29] MEDS: diazePAM 5 MG TABLET PO SCH ×2 (08:44→20:05)
[2022-06-29] MEDS: MAGNESIUM SULFATE / D5W 1 GM/100 ML BAG IV SCH ×2 (10:05→12:02)
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
[2022-06-29] MEDS: ROSUVASTATIN CALCIUM 20 MG TAB PO SCH (19:58)
[2022-06-29] MEDS: METOPROLOL TARTRATE 25 MG TAB PO SCH (19:58)
[2022-06-29] MEDS: PARoxetine HCL 20 MG TAB PO SCH (19:59)
[2022-06-29] MEDS: MULTIVITAMIN TAB PO SCH (19:59)
[2022-06-29] MEDS: lisinopril 20 MG TAB PO SCH (19:59)
[2022-06-30] MEDS: MoRPHine SULFATE 4 MG/ML 1 ML CARP\\VIAL IV PRN ×2 (03:11→08:22)
[2022-06-30] MEDS: oxyCODONE HCL IR 5 MG TAB (IMMEDIATE RELEASE) PO PRN (04:19)
[2022-06-30 07:32] LABS: Basophils # (auto) 0.04 K/uL (0-0.2); Basophils % (auto) 0.7 %; Eosinophils # (auto) 0.35 K/uL (0-0.50); Eosinophils % (auto) 5.8 %; Hematocrit (blood only) 31.2 % (42.0-52.0); Hemoglobin 10.5 g/dl (14.0-18.0); Immature Granulocytes # (auto) 0.03 K/uL (0.01-0.20); Immature Granulocytes % (auto) 0.5 %; Lymphocytes # (auto) 1.26 K/uL (1.2-3.4); Lymphocytes % (auto) 20.8 %; Mean Corpuscular Hemoglobin 32.5 pg (25.0-34.0); Mean Corpuscular Hgb Conc 33.7 g/dL (32.0-36.0); Mean Corpuscular Volume 96.6 fL (80.0-100.0); Monocytes # (auto) 0.59 K/uL (0.11-0.59); Monocytes % (auto) 9.7 %; Neutrophils # (auto) 3.79 K/uL (1.40-6.50); Neutrophils % (auto) 62.5 %; Platelet Count 183 K/uL (130-400); RDW Coefficient of Variation 13.5 % (11.5-14.5); RDW Standard Deviation 46.9 fL (36.4-46.3); Red Blood Count 3.23 M/uL (4.70-6.10); White Blood Count 6.06 K/ul (4.8-10.8)
[2022-06-30 07:39] LABS: BUN Creatinine Ratio 14.6 (10-20); Calcium 9.2 mg/dl (8.5-10.1); Creatinine Clr Calc Pharmacy 50.9 ml/min; Est GFR (Non-African American) 39.7 ml/min; Magnesium 1.8 mg/dl (1.7-2.4); Potassium 4.4 mmol/L (3.5-5.1)
--- NOTE | 2022-06-30 07:42 | XRay Report ---
XR chest 1V portable HISTORY: Pneumonia. Follow-up. COMPARISON: Chest 06/27/2022. FINDINGS: No pneumothorax. Interstitial thickening, hazy airspace opacities, and trace bilateral pleu ral effusions have slightly improved. The heart remains top normal in size. No new focal lung consoli dations. Cervical and lumbar spinal fusion hardware is again noted. IMPRESSION: Slight improvement in the mild interstitial pulmonary edema and trace bilateral pleural effusions. ACT 112: Negative or not required by law. Electronically signed by: Andres Carty M.D. 06/30/2022 7:40 AM
--- NOTE | 2022-06-30 07:43 | Hospitalist Progress Note ---
Date of Service June 30, 2022 Assessment & Plan Admission and Anticipated Discharge Date Admission Date: June 27, 2022 Results & Data Results & Data ([facility]) Vital Signs (Past 12 Hours) Vital Signs Temp Pulse Pulse Resp BP BP Pulse Ox 06/30/22 07:36 06/30/22 07:26 36.6 C 75 18 137/88 92 06/30/22 03:07 36.5 C 75 18 131/89 96 06/30/22 02:46 60 06/29/22 21:00 06/29/22 22:34 36.6 C 60 18 133/90 95 O2 Del Method 06/30/22 07:36 Room Air 06/30/22 07:26 Room Air 06/30/22 03:07 Room Air 06/30/22 02:46 06/29/22 21:00 Room Air 06/29/22 22:34 Room Air
[2022-06-30] MEDS: ACETAMINOPHEN 500 MG TAB PO SCH ×2 (08:08→14:43)
[2022-06-30] MEDS: METOPROLOL TARTRATE 25 MG TAB PO SCH (08:08)
[2022-06-30] MEDS: AZITHROMYCIN 250 MG TAB PO SCH (08:08)
[2022-06-30] MEDS: APIXABAN 5 MG TABLET PO SCH (08:08)
[2022-06-30] MEDS: diazePAM 5 MG TABLET PO SCH (08:15)
[2022-06-30] MEDS: cefTRIAXone SODIUM 2,000 MG in DEXTROSE 5% 50 ML IV SCH (08:20)
[2022-06-30] MEDS: INSULIN ASPART PER UNIT SC SCH ×2 (09:23→11:18)
--- NOTE | 2022-06-30 13:58 | Discharge Summary ---
Date of Service June 30, 2022 Admission HPI Per Admitting Provider Sawyer Coleman is a 72-year-old male who presents to the ER with shortness of breath. He reports 3 days of progressively worsening shortness of breath. He has chronic back pain and he thinks worsening of this pain was making him more short of breath and difficulty breathing. Called EMS and reported having new onset atrial fibrillation with rapid ventricular rate on the monitor. He denies any fever, chills, cough, nasal congestion, sinus pain, chest pain, abdominal pain, diarrhea. He was recently in the emergency room in April for evaluation of a flare of his chronic neck pain and received diazepam, lidocaine patch and dexamethasone and was subsequently discharged from the emergency room. No imaging was taken at this time. He reports this is different as the shortness of breath is new. In the ER initial heart rate was noted to be 195 although on monitor this was around 160 and appeared to convert to SR with PACs on the monitor down to 120s with 2 L normal saline. He does recent alcohol intake for the last 4 days as his girlfriend has been staying with him. He was treated as sepsis and after blood cultures taken was given empiric antibiotics with ceftriaxone 2 g IV. Urinalysis was relatively unremarkable for infection. CT chest/abdomen/pelvis and thoracic spine showed possible pneumonia but was otherwise unremarkable. He was referred to medicine for admission and ongoing management of sepsis. Admission Exam Per Admitting Provider Constitutional: WD/WN, vitals as above Eyes: + anicteric sclerae; normal pupil size Respiratory: normal respiratory effort; no respiratory distress Auscultation: + crackles (bibasal); breath sounds present, no diminished lung sounds, no rales, no rhonchi and no wheezes Cardiovascular: Rate/Rhythm: + tachycardic and + irregularly irregular Heart Sounds: no murmur Extremities: + pedal edema (2+ b/l pitting equal) Gastrointestinal (Abdomen): normal bowel sounds, soft, nontender, no hepatosplenomegaly Musculoskeletal: no cyanosis or clubbing, extremities motor strength 5/5 Skin: Ecchymosis on left chest Neurologic: moves all extremities and awake; no focal motor deficits and not confused Motor/Sensory: + tremor (left postural > right); no pronator drift Cranial Nerves: normal facial strength Coordination: normal sitpxy-ya-fqax test Psychiatric: A+Ox3, euthymic affect Principal Diagnosis Sepsis secondary to pulmonary source, atrial flutter, back pain Discharge Exam Constitutional: well-appearing, no acute distress CV: regular rhythm, no murmur appreciated, extremities well-perfused, no LE edema Resp: lung sounds slightly diminished on left upper and lower johnson, no increased work of breathing Neuro: alert, oriented, no focal neurologic deficit appreciated Discharge Data Allergies Allergy/AdvReac Type Severity Reaction Status Date / Time house dust Allergy Unknown congestion,difficulty Verified 04/13/22 10:24 breathing- receives allergy shots mold Allergy Unknown nasal Verified 04/13/22 10:24 congestion, difficulty breathing Penicillins Allergy Unknown rash, hives Verified 04/13/22 10:24 Consultations 06/27/22 12:17 ED Decision to Admit Stat 06/29/22 09:26 Consult Cardiology Routine Ordered Studies 06/27/22 10:05 CT angio chest PE protocol Stat 06/27/22 11:19 CT thoracic spine w con Stat 06/27/22 11:20 CT Abd and Pelvis [CT abd pelvis IV con only] Stat Hospital Course (1) Sepsis: Sepsis suspected secondary to pneumonia Patient's sepsis on admission was suspected to be due to pneumonia, though seeding infection from patient's back hardware was considered; however, blood cultures remained negative. Patient was empirically treated with ceftriaxone and azithromycin. Patient was afebrile from hospital day two until discharge. Patient spO2 remained adequate on room air from hospital day three until discharge. Patient was discharged home in stable condition with prescriptions to complete his antibiotic course (one more dose of azithromycin, and six days of cefdinir). PCP follow-up was arranged upon discharge (Dr. Foster at [facility]). Atrial flutter vs atrial fibrillation with RVR Cardiology was consulted and felt patient's EKG represented atrial flutter rather than atrial fibrillation with RVR due to the presence of organized atrial activity. Cardiology recommended anticoagulation with eliquis (5mg bid) as well as adding metoprolol tartrate 25mg PO bid. Patient was discharged with prescriptions for both of these medications. Outpatient cardiology follow-up (Dr. Beatty at [facility]) was arranged upon discharge, as was PCP follow-up as noted above. Jhons-ca-abwzkec back pain Patient's long history of lower back pain as well as multiple back surgeries with hardware placement was noted on admission. Patient did require an escalation of his home pain regimen; patient's acute worsening of back pain was suspected to be secondary to acute illness as well as reduced mobility while in the hospital. Given the acute exacerbation, patient was discharged with a five- day supply of oxycodone 10mg tid, after which he will resume his home dose of oxycodone 5mg tid. PCP follow-up was arranged upon discharge, and the importance of close follow-up was stressed. Patient voiced understanding of this plan. CKD3 Patient's creatinine was at baseline during this admission. DM2 Patient's home DM2 regimen was held on admission. BSG was controlled with sliding-scale insulin. HbA1c was 5.8% (06/28/22). Patient's home regimen was restarted upon discharge. (2) Atrial flutter with rapid ventricular response: (3) Pneumonia: (4) Back pain: (5) Chronic kidney disease with active medical management without dialysis, stage 3 (moderate): (6) 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, type 2: Total Time Total Time Spent Total Time Spent (In Minutes): see attending documentation Discharge Plan Discharge Items Patient Disposition: Home - Self-Care Reason For Visit: SEPSIS Discharge Diagnosis: Sepsis seondary to ppulmonary source, atrial flutter, back pain Activity: Resume your previous activity Non-emergency contact: Primary Care Provider and Portainer Operator Call non-emergency contact if: you have any medication questions, your symptoms worsen and you have a fever Follow-up/Referrals: Randal Beatty DO [Physician] - (New-onset afib with RVR) Nithya Foster [Primary Care Provider] - Diet: Carb Consistent or DM2 and Heart Healthy Addtl Attending Provider Instructions: You were admitted to the hospital for pneumonia as well as an abnormal heart rhythm called atrial fibrillation. You were treated with antibiotics for pneumonia, and you were treated with heart rate-lowering medicines and blood thinners for atrial fibrillation. You have improved nicely and we feel it is safe for you to return home. A discharge summary will be sent to your primary care physician to ensure continuity of care. Please bring this discharge summary with you to your next office appointment so that your provider can review it at that time. Follow-up appointments: We have requested a follow-up appointment with your primary care physician within one week of discharge. Please call their office if you do not hear from them by mid-week. We have also requested an appointment with Dr. Beatty, a cat operator with [facility]. Their office will be in contact with you next week in order to schedule that appointment. Keep all your follow-up appointments as already scheduled. If you cannot make an appointment, notify your provider. Medications: Your medication list has been reviewed and reconciled upon discharge to ensure accuracy and continuity of care. An updated list of all your medications is included with your hospital discharge paperwork. Please review this list closely, and make note of any changes. * We sent a new medication called apixaban (Eliquis) to your pharmacy. Take apixaban (5mg) one tablet twice daily. * We sent a new medication called azithromycin to your pharmacy. Take azithromycin (250mg) one capsule on Jul 01; after this one dose, you no longer need to take azithromycin. * We sent a new medication called cefdinir to your pharmacy. Take cefdinir (300mg) one capsule twice daily for six days. After your final dose on July 06, you no longer need to take cefdinir. * We also sent a small supply of oxycodone to your pharmacy. Take oxycodone (10mg) one tablet up to three times a day as-needed for pain. If you have any issues filling these prescriptions, please call [phone] and ask to leave a message for Dr. Lenny Barfield. Take your medications as instructed; do not skip a dose of your medicines. Make sure all of your doctors know every medicine you are taking (including dors-omu-ywjwpuw medicines, vitamins, and supplements). Call your primary care provider before taking any new medicines (including qnsg-vom-thlifhv medicines, vitamins, and supplements), because some of these may interact with your current medications, or may make your symptoms worse. Tell your primary care provider if you cannot afford your medications. CONTACT YOUR PRIMARY CARE PROVIDER if you experience any of the following: Fever, chills Worsening shortness of breath or difficulty breathing Difficulty following your treatment plan, or difficulty taking medications CALL 911 OR GO TO THE EMERGENCY DEPARTMENT if you experience any of the foll owing: Sudden, severe abdominal pain or nausea/vomiting Severe chest pain, or chest pain that radiates (moves) to your jaw or arm Sudden, severe shortness of breath or difficulty breathing Thank you for allowing us to participate in your care. Pending Studies at Discharge: No Stand-Alone Forms: My [facility] Medications and DC Order Prescriptions: New Eliquis 5 mg Tablet 5 mg PO BID 30 Days Qty: 60 1RF azithromycin 250 mg Tablet 250 mg PO QAM Qty: 1 0RF Rx Instructions: Take one tablet on Saturday, Jul 01; after this, you no longer need to take azithromycin. metoprolol tartrate 25 mg Tablet 25 mg PO BID 30 Days Qty: 60 1RF cefdinir 300 mg capsule 300 mg PO BID 6 Days Qty: 12 0RF Rx Instructions: Take one capsule twice daily for six days, then stop. oxycodone 10 mg tablet 10 mg PO TID 5 Days Qty: 15 0RF Rx Instructions: Temp increase post hospital; aware of 5mg TID presciption Continued colchicine 0.6 mg Tablet 0.6 mg PO DAILY PRN (Reason: gout) multivitamin Tablet 1 tab PO HS metformin 500 mg Tablet 500 mg PO HS diazepam [Valium] 5 mg tablet 5 mg PO BID paroxetine HCl [Paxil] 40 mg tablet 40 mg PO HS lisinopril [Zestril] 20 mg tablet 20 mg PO HS paroxetine HCl 20 mg tablet 20 mg PO HS oxycodone 5 mg tablet 5 mg PO TID PRN (Reason: Pain) rosuvastatin 40 mg tablet 40 mg PO HS Discharge Orders: Discharge Order (Routine); Ordered 06/30/22 Ordered By: Lenny Barfield Admission Data Admit Date/Time: 06/27/22 12:23 Attending Provider: Jeovany Whitfield Admit Provider: Kostas Fofana Primary Care Provider: Nithya Foster Other Providers: Kostas Fofana ; Kyaw Guzman Other Interventions: Discharge Summary Assessment (RN) Last Done: 06/30/22 14:40 Supervising Physician Co-Signing Physician Notes I also saw the patient with the resident physician and confirmed guerrero portions of the history and the physical examination. I agree with the impression and plan as noted in the documentation above, and as summarized below. He is feeling much better today. He states that his pain in his back, and with inspiration, is improved compared to yesterday. Not at his baseline back pain but again, improved. Remains afebrile. He is satting well on room air. He is having no difficulty with p.o. intake. Exam 131/89, 112, 18, 36.5, 91% room air Pleasant. Talkative. Heart regular rate and rhythm (upon my exam, auscultation mid 70s) Respirations nonlabored. Lungs clear except for faint rales at the bases bilaterally Abdomen is soft nontender. Nondistended. Data Hemoglobin 10.5 Sodium 135, potassium 4.4, BUN 25, creatinine 1.71 Micro Blood cultures drawn 06/27/2022 show no growth after 48 hours Imaging Chest x-ray from this morning shows improvement in the mild interstitial pulmo nary edema and trace bilateral pleural effusions. Impression and Plan Sepsis, likely PNA based on CT imaging SN[facility] improvement today compared to yesterday Tolerating p.o., on room air, and afebrile, meets criteria for discharge He does have assistance at home if needed Atrial flutter versus atrial fibrillation Cardiology consultation appreciated Continue systemic anticoagulation with apixaban Continue metoprolol 25 mg p.o. twice daily Outpatient follow-up with cardiology Acute on chronic back pain Probably exacerbated the setting of acute illness, increased bedrest Improved today but not at his baseline Increased oxycodone 10 mg p.o. 3 times daily for 5 days. One-time prescription for #15 sent to pharmacy Thereafter resume 5 mg p.o. 3 times daily (his chronic regimen). Chronic kidney disease, stage III Baseline creatinine 1.61.9 Improved Additional per student/resident documentation above Resident Activity Tracking Resident Involvement: Resident Care Provided Care Provided: Adult Hospital Medicine
== END 2022-06-30 15:15 | disposition home or self-care (01) | DRG 871 ==
LOC: ED 09:31 → SUATTDRO 12:23 → 2S 12:23

== ENCOUNTER 2023-02-12 19:07 | Inpatient (IN) ==
--- NOTE | 2023-02-12 19:29 | ED Triage Note ---
Date of Service February 12, 2023 History of Present Illness This patient was briefly evaluated while in triage. An abbreviated physical exam was performed. This patient is a 72-year-old Male who presents to the ED for evaluation of seen at cards today-recently started on a blood thinner (Eliquis), BP has been low, fatigue had abnormal blood work today-kidney functions was sent by has a history of JACK Physical Exam GENERAL: NAD , hypotensive CARDIOVASCULAR: RRR RESPIRATORY: CTA ABDOMEN: BS x 4. Nontender to palpation. Initial orders for labs and / or imaging were placed and patient was placed in the waiting area until a bed is available. Please see further documentation for the full ED course.
[2023-02-12] MEDS ORDERED: SODIUM CHLORIDE 0.9% 250 ML IV ONE ×2 (20:14→22:05)
[2023-02-12] MEDS ORDERED: SODIUM CHLORIDE 0.9% 1,000 ML IV SCH (20:15)
--- NOTE | 2023-02-12 21:06 | Emergency Department Note ---
Impression & Plan Acute hypotension, JACK (acute kidney injury), Generalized weakness ED Provider Note INFORMANT: Patient ED PROVIDER(S): Zachary Lama MD CHIEF COMPLAINT: Abnormal blood work and generalized weakness PLAN: Disposition: Admission Outpatient prescription management: none Referral: None MEDICAL DECISION MAKING: Patient presented because of abnormal blood work and concerns about kidney failure. He was mildly hypotensive on arrival. ECG showed a normal sinus rhythm. Cardiac monitoring did the same. I did attempt to get his blood work from the outpatient setting. Patient's blood work from the office did reveal a potassium of 5.1. His creatinine was approaching 5. Repeat blood work here revealed his creatinine to be slightly over 5. The patient underwent CT imaging. I see no evidence of obstruction. Patient has official read pending at this time. His potassium here hemolyzed. Patient's ECG here did not show any sign of hyperkalemia. Repeat potassium is processing. Patient did have some mildly low blood pressure and was given gentle fluid boluses as well as baseline hydration. Further management in the hospital will be necessary. Consultation was made with Dr. Ian Menendez of the [facility] service. Patient was evaluated in the ER for further management. Care/management discussed with: Discussed with sr. operations manager Level of care consideration(s): After review of the information above and other included data, I feel the patient requires escalation of care to admission. Triage Nursing notes: reviewed and agree them. Vital Signs: reviewed and remarkable for hypotension Additional History obtained from: none Chronic Medical/Social Conditions affecting care: A-fib, JACK Prior /Outside records reviewed: none Differential Diagnosis: Kidney failure, infection, dehydration, metabolic abnormality, hypo/hyperglycemia, electrolyte disturbance, anemia, hypoxia, cardiac sources, intracerebral event, toxicologic, neurologic, as well as other pathologies. Diagnostics, independently interpreted by me: EC Lead ECG performed and revealed Normal sinus rhythm at 60, normal [place], QRS normal. No elevation or depression. No PACs or PVCs. Cardiac Monitoring: Cardiac monitoring ordered by me: The patient was placed on continuous cardiac monitoring and observed. It revealed sinus bradycardia 50 beats per minute without ectopy or evidence of dysrhythmia. Medical decision rules: none Imaging studies: CT scan of the abdomen pelvis is negative for hydronephrosis or obstruction. I refer you to the EMR for further details. HPI: The patient is a 72-year-old male who arrives for evaluation of abnormal blood work and weakness. Patient notes that he has been feeling weak and tired over the last several days. He had blood work done at his primary office and was found to have kidney failure. Patient has a history of JACK. His blood pressure was low as well. Patient was referred back to the ER for further management regarding this issue. Patient notes having some chronic back pain but no new pains, especially in the chest or abdomen/pelvis. Patient notes some decreased urine output. Denies any vomiting and diarrhea. Pt denies LOC, headache, fevers, chills, diaphoresis, visual changes, neck pain, chest pain, breathing difficulties, nausea, vomiting, abdominal pain, melena, hematochezia, urinary symptoms, numbness, lymphadenopathy, rash, or other complaints. PAST MEDICAL HISTORY: See Below, chronic back., JACK PAST SURGICAL HISTORY: See Below, multiple back surgeries SOCIAL HISTORY: See Below, retired HOME MEDICATIONS: See Below ALLERGIES: See Below VITALS: See Below PHYSICAL EXAMINATION: GENERAL: Awake, tired-appearing, in no distress HENT: Normocephalic, atraumatic. Oropharynx unremarkable. EYES: Normal conjunctiva. Sclera non-icteric. NECK: Inspection normal. Non-tender. Supple. No nuchal rigidity. FROM. No masses. RESPIRATORY: Clear to auscultation. No wheezes. No rales. Normal respiratory effort. CARDIAC: Normal rate. Normal rhythm. No murmurs. No rubs. Extremities warm and well perfused. Pulses equal. No JVD. GI: Soft, non-distended. No tenderness to palpation. No rebound or guarding. No masses. RECTAL: Deferred. MUSCULOSKELETAL: Atraumatic. Chest examination reveals no tenderness. The back is symmetrical on inspection without obvious abnormality. There is no CVA tenderness to palpation. No joint edema. LOWER EXTREMITIES: Calves are equal size bilaterally and non-tender. Trace edema. No discoloration. NEURO: Normal sensorium. No sensory or motor deficits noted. SKIN: No rash or jaundice noted. PROCEDURES: none CRITICAL CARE: none OBSERVATION NOTE: none Past Med/Surg History Medical History Acute kidney injury Alcohol dependence Anxiety Cancer Chronic pain syndrome Chronic use of benzodiazepine for therapeutic purpose CKD (chronic kidney disease) Depression 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, type 2 Elevated troponin Hepatitis C History of benign eye tumor Hyperlipidemia Hypertension Hypomagnesemia Hyponatremia Sepsis Stage 3b chronic kidney disease Tremor Surgical History History of Achilles tendon repair History of appendectomy History of back surgery History of colonoscopy History of difficult intubation History of elbow surgery History of eye surgery History of eyelid surgery History of facial surgery History of fusion of cervical spine History of herniorrhaphy History of incision and drainage History of nasal septoplasty History of prostatectomy History of repair of rotator cuff History of spinal fusion History of tonsillectomy Family History Uncle Family history of diabetes mellitus Cancer Mother FHx: breast cancer Aneurysm FRONTAL LOBE Breast cancer Father FHx: aortic aneurysm Lewy body dementia Cancer Social History Smoking Status: Never smoker Tobacco Type: Cigarettes packs per day: 1; Second Hand Exposure: No; Do You Dip or Chew Tobacco: No; Hx Alcohol Use: Yes Alcohol type: hard liquor Alcohol type Comment: 3 drinks daily Hx Substance Use: Yes Substance Use Type Other:: in the Preferred Language: Mexican Communication Ability: Effective Visual Impairment: Limited Hearing Ability: Normal Candles Pourer Required: No Beliefs That Will Affect Care: None marital status: Single Current Living Situation: Alone current occupational status: retired 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[employer], 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, 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 other: 1 daughter Feels Safe at Home: Yes Assistive Devices: None Allergies Allergies Allergy/AdvReac Type Severity Reaction Status Date / Time house dust Allergy Unknown congestion,difficulty Verified 02/12/23 22:08 breathing- receives allergy shots mold Allergy Unknown nasal Verified 02/12/23 22:08 congestion, difficulty breathing Penicillins Allergy Unknown rash, hives Verified 02/12/23 22:08 Home Meds Home Medications Medication Instructions Recorded Confirmed metformin 500 mg tablet 500 mg PO HS 01/28/18 02/12/23 multivitamin 1 tab PO HS 01/28/18 02/12/23 lisinopril 20 mg tablet (Zestril) 20 mg PO HS 08/16/19 02/12/23 paroxetine HCl 40 mg tablet (Paxil) 40 mg PO HS 01/04/22 02/12/23 oxycodone 5 mg tablet 5 mg PO TID PRN Pain 04/13/22 02/12/23 paroxetine HCl 20 mg tablet 20 mg PO HS 04/13/22 02/12/23 rosuvastatin 40 mg tablet 40 mg PO HS 04/13/22 02/12/23 cholecalciferol (vitamin D3) 25 25 mcg PO HS 02/12/23 02/12/23 mcg (1,000 unit) tablet (Vitamin D3) diazepam 5 mg tablet 5 mg PO BID 02/12/23 02/12/23 diltiazem HCl 30 mg tablet 30 mg PO BID 02/12/23 02/12/23 metoprolol succinate 25 mg 25 mg PO HS 02/12/23 02/12/23 tablet,extended release 24 hr Previous Rx's Medication Instructions Recorded apixaban 5 mg tablet (Eliquis) 5 mg PO BID 30 days #60 tabs 06/30/22 Results & Data (ED) Vital Signs Vital Signs - 24 hr 02/12/23 19:29 02/12/23 20:25 02/12/23 20:25 Temperature 36.3 C L Temperature Source Temporal Artery Scan Pulse Rate 63 Pulse Rate [Apical] 58 L Respiratory Rate 18 14 Respiratory Effort / Characteristics Non-Labored Spontaneous Respiratory Depth Normal Blood Pressure 85/61 L Blood Pressure [Left Arm] 98/63 L Blood Pressure Mean 69 Blood Pressure Mean [Left Arm] 74 Blood Pressure Position Sitting Pulse Oximetry 99 98 98 Oxygen Delivery Method Room Air Room Air Room Air Sepsis Recent Fever Within 48 Hours No Sepsis New/Unexplained Change in Mental Status N/A Sepsis Action Taken by Nursing No Action Required 02/12/23 20:25 Temperature Temperature Source Pulse Rate Pulse Rate [Apical] Respiratory Rate Respiratory Effort / Characteristics Respiratory Depth Blood Pressure Blood Pressure [Left Arm] Blood Pressure Mean Blood Pressure Mean [Left Arm] Blood Pressure Position Pulse Oximetry Oxygen Delivery Method Room Air Sepsis Recent Fever Within 48 Hours Sepsis New/Unexplained Change in Mental Status Sepsis Action Taken by Nursing Laboratory Data 02/12/23 19:45 02/12/23 19:45 Lab Results 02/12/23 02/12/23 02/12/23 Range/Units 19:45 19:45 19:45 WBC 7.53 (4.8-10.8) K/ul RBC 4.63 L (4.70-6.10) M/uL Hgb 15.7 (14.0-18.0) g/dl Hct 45.1 (42.0-52.0) % MCV 97.4 (80.0-100.0) fL MCH 33.9 (25.0-34.0) pg MCHC 34.8 (32.0-36.0) g/dL RDW Std Deviation 47.6 H (36.4-46.3) fL RDW Coeff of Diana 13.2 (11.5-14.5) % Plt Count 266 (130-400) K/uL MPV 10.2 (9.4-12.4) fL Immature Gran % (Auto) 0.3 % Neut % (Auto) 59.9 % Lymph % (Auto) 21.2 % Cache % (Auto) 14.1 % Eos % (Auto) 4.0 % Baso % (Auto) 0.5 % Neut # (Auto) 4.51 (1.40-6.50) K/uL Lymph # (Auto) 1.60 (1.20-3.40) K/uL Cache # (Auto) 1.06 H (0.11-0.59) K/uL Eos # (Auto) 0.30 (0.00-0.50) K/uL Baso # (Auto) 0.04 (0.00-0.20) K/uL Immature Gran # (Auto) 0.02 (0.01-0.20) K/uL PT Cancelled INR Cancelled APTT Cancelled PTT Ratio Cancelled Sodium 132 L (136-145) mmol/L Potassium TNP Chloride 102 (98-107) mmol/L Carbon Dioxide 19 L (21-32) mmol/L Anion Gap 11 (3-11) BUN 72 H (6-23) mg/dl Creatinine 5.62 H* (0.6-1.4) mg/dl Est Cr Clr Drug Dosing 14.9 ml/min Est GFR ( Amer) 10.9 ml/min Est GFR (Non-Af Amer) 9.4 ml/min BUN/Creatinine Ratio 12.8 (10-20) Glucose 92 (70-99(Fasting)) mg/dl Calcium 9.9 (8.6-10.3) mg/dl Total Bilirubin 0.7 (0.2-1.0) mg/dl AST TNP ALT 14 (7-52) U/L Alkaline Phosphatase 116 H (34-104) U/L Troponin I High Sens 11.9 (0-20) pg/ml Total Protein 8.2 (6.0-8.3) gm/dl Albumin 5.1 H (3.4-5.0) gm/dl Globulin 3.1 (2.5-4.0) gm/dl Albumin/Globulin Ratio 1.6 (0.9-2) SARS-CoV-2, RNA, NAAT (NEGATIVE) 02/12/23 Range/Units 20:20 WBC (4.8-10.8) K/ul RBC (4.70-6.10) M/uL Hgb (14.0-18.0) g/dl Hct (42.0-52.0) % MCV (80.0-100.0) fL MCH (25.0-34.0) pg MCHC (32.0-36.0) g/dL RDW Std Deviation (36.4-46.3) fL RDW Coeff of Diana (11.5-14.5) % Plt Count (130-400) K/uL MPV (9.4-12.4) fL Immature Gran % (Auto) % Neut % (Auto) % Lymph % (Auto) % Cache % (Auto) % Eos % (Auto) % Baso % (Auto) % Neut # (Auto) (1.40-6.50) K/uL Lymph # (Auto) (1.20-3.40) K/uL Cache # (Auto) (0.11-0.59) K/uL Eos # (Auto) (0.00-0.50) K/uL Baso # (Auto) (0.00-0.20) K/uL Immature Gran # (Auto) (0.01-0.20) K/uL PT INR APTT PTT Ratio Sodium (136-145) mmol/L Potassium Chloride (98-107) mmol/L Carbon Dioxide (21-32) mmol/L Anion Gap (3-11) BUN (6-23) mg/dl Creatinine (0.6-1.4) mg/dl Est Cr Clr Drug Dosing ml/min Est GFR ( Amer) ml/min Est GFR (Non-Af Amer) ml/min BUN/Creatinine Ratio (10-20) Glucose (70-99(Fasting)) mg/dl Calcium (8.6-10.3) mg/dl Total Bilirubin (0.2-1.0) mg/dl AST ALT (7-52) U/L Alkaline Phosphatase (34-104) U/L Troponin I High Sens (0-20) pg/ml Total Protein (6.0-8.3) gm/dl Albumin (3.4-5.0) gm/dl Globulin (2.5-4.0) gm/dl Albumin/Globulin Ratio (0.9-2) SARS-CoV-2, RNA, NAAT NEGATIVE (NEGATIVE) Administered Medications Sodium Chloride (Nss) 1,000 mls @ 125 mls/hr IV .Q8H JORJE Stop: 03/14/23 20:14 Last Admin: 02/12/23 22:13 Dose: 125 mls/hr Documented By: STUART Discontinued Medications Sodium Chloride (Nss) 250 mls @ 999 mls/hr IV .Q16M ONE Stop: 02/12/23 20:29 Last Admin: 02/12/23 20:45 Dose: 999 mls/hr Documented By: STUART Sodium Chloride (Nss) 250 mls @ 999 mls/hr IV .Q16M ONE Stop: 02/12/23 22:20 Last Admin: 02/12/23 22:13 Dose: 999 mls/hr Documented By: STUART Discharge Plan Visit Data Chief Complaint: Cardiac Assessment Stated Complaint: BACK AND NECK PAIN ED Provider: Zachary Lama Discharge Problem: Acute hypotension, JACK (acute kidney injury), Generalized weakness Forms Stand Alone Forms: [facility] [employer] Prescriptions Prescriptions: No Action multivitamin Tablet 1 tab PO HS metformin 500 mg Tablet 500 mg PO HS paroxetine HCl [Paxil] 40 mg tablet 40 mg PO HS lisinopril [Zestril] 20 mg tablet 20 mg PO HS paroxetine HCl 20 mg tablet 20 mg PO HS oxycodone 5 mg tablet 5 mg PO TID PRN (Reason: Pain) rosuvastatin 40 mg tablet 40 mg PO HS diltiazem HCl 30 mg tablet 30 mg PO BID diazepam 5 mg tablet 5 mg PO BID metoprolol succinate 25 mg tablet extended release 24 hr 25 mg PO HS cholecalciferol (vitamin D3) [Vitamin D3] 25 mcg (1,000 unit) Tablet 25 mcg PO HS Eliquis 5 mg Tablet 5 mg PO BID 30 Days Qty: 60 1RF Referrals Referrals: Nithya Foster [Primary Care Provider] -
[2023-02-12 21:17] LABS: Alanine Aminotransferase 14 U/L (7-52); Albumin Globulin Ratio 1.6 (0.9-2); Albumin Level 5.1 gm/dl (3.4-5.0); Alkaline Phosphatase 116 U/L (34-104); Anion Gap 11 (3-11); BUN Creatinine Ratio 12.8 (10-20); Basophils # (auto) 0.04 K/uL (0.00-0.20); Basophils % (auto) 0.5 %; Bilirubin,Total 0.7 mg/dl (0.2-1.0); Blood Urea Nitrogen 72 mg/dl (6-23); Calcium 9.9 mg/dl (8.6-10.3); Carbon Dioxide 19 mmol/L (21-32); Chloride 102 mmol/L (98-107); Creatinine Clr Calc Pharmacy 14.9 ml/min; Est GFR (African American) 10.9 ml/min; Est GFR (Non-African American) 9.4 ml/min; Globulin 3.1 gm/dl (2.5-4.0); Glucose 92 mg/dl (70-99(Fasting)); Hematocrit (blood only) 45.1 % (42.0-52.0); Hemoglobin 15.7 g/dl (14.0-18.0); Immature Granulocytes # (auto) 0.02 K/uL (0.01-0.20); Immature Granulocytes % (auto) 0.3 %; Lymphocytes % (auto) 21.2 %; Mean Corpuscular Hemoglobin 33.9 pg (25.0-34.0); Mean Corpuscular Hgb Conc 34.8 g/dL (32.0-36.0); Mean Corpuscular Volume 97.4 fL (80.0-100.0); Mean Platelet Volume 10.2 fL (9.4-12.4); Monocytes # (auto) 1.06 K/uL (0.11-0.59); Monocytes % (auto) 14.1 %; Neutrophils # (auto) 4.51 K/uL (1.40-6.50); Neutrophils % (auto) 59.9 %; Platelet Count 266 K/uL (130-400); RDW Coefficient of Variation 13.2 % (11.5-14.5); RDW Standard Deviation 47.6 fL (36.4-46.3); Red Blood Count 4.63 M/uL (4.70-6.10); Sodium 132 mmol/L (136-145); Total Protein 8.2 gm/dl (6.0-8.3); Troponin I High Sensitivity 11.9 pg/ml (0-20); White Blood Count 7.53 K/ul (4.8-10.8)
[2023-02-12 22:38] LABS: Potassium 5.4 mmol/L (3.5-5.1)
--- NOTE | 2023-02-12 22:49 | CT Scan Report ---
Exam(s): CT ABDOMEN + PELVIS Without Contrast EXAM: CT Abdomen and Pelvis Without Intravenous Contrast CLINICAL HISTORY: Reason for exam: Acute renal failure. TECHNIQUE: Axial computed tomography images of the abdomen and pelvis without intravenous contrast. CTDI is 27.03 mGy and DLP is 1272.35 mGy-cm. Automated exposure control was utilized for the study. A dose lowering technique was utilized adhering to the principles of ALARA. COMPARISON: CT of the pelvis June 27, 2022 FINDINGS: Lung bases: Unremarkable. No mass. No consolidation. Heart: Mild pericardial calcifications. ABDOMEN: Liver: Unremarkable. Gallbladder and bile ducts: Unremarkable. No calcified stones. No ductal dilation. Pancreas: Unremarkable. No ductal dilation. Spleen: Unremarkable. No splenomegaly. Adrenals: Unremarkable. No mass. Kidneys and ureters: Posterior RIGHT renal cyst measures approximately 2 cm, better identified on contrast exam from June 27, 2022. No obstructing stones. No hydronephrosis. Stomach and bowel: Ventral abdominal wall hernia, which contains a single, small to small bowel. No small bowel obstruction at this time. This may be manually reducible. Diverticulosis, without acute diverticulitis. No small bowel obstruction. No free intraperitoneal air. PELVIS: Appendix: No findings to suggest acute appendicitis. Bladder: Mild wall thickening of the urinary bladder, correlate for UTI. Decompressed urinary bladder. No stones. Reproductive: Unremarkable as visualized. ABDOMEN and PELVIS: Intraperitoneal space: Unremarkable. No free air. No significant fluid collection. Bones/joints: Degenerative changes of the spine. RIGHT sacroiliac arthrodesis. Multilevel lumbosacral fusion hardware. No acute fracture. No dislocation. Soft tissues: See above. Vasculature: Atherosclerotic changes of the aorta. No abdominal aortic aneurysm. Lymph nodes: Unremarkable. No enlarged lymph nodes. IMPRESSION: 1. Mild wall thickening of the urinary bladder, correlate for UTI. 2. Mild pericardial calcifications. 3. Ventral abdominal wall hernia, which contains a single, small to small bowel. No small bowel obstruction at this time. This may be manually reducible. 4. RIGHT sacroiliac arthrodesis. Multilevel lumbosacral fusion hardware. 5. Posterior RIGHT renal cyst measures approximately 2 cm, better identified on contrast exam from June 27, 2022. 6. Diverticulosis, without acute diverticulitis. No small bowel obstruction. No free intraperitoneal air. Electronically signed by: Ronnie Galeano MD 02/12/23 22:48 PM
[2023-02-12 23:01] LABS: INR 1.1 (0.9-1.1); Partial Thromboplastin Ratio 0.9; Prothrombin Time 11.7 Seconds (9.0-12.0)
[2023-02-13] MEDS ORDERED: SODIUM CHLORIDE 0.9% 1,000 ML IV ONE ×2 (00:49→05:23)
[2023-02-13] MEDS ORDERED: PATIROMER CALCIUM SORBITEX 8.4 GM PACK PO ONE (00:49)
[2023-02-13] MEDS ORDERED: CALCIUM GLUCONATE 1,000 MG/60 ML BAG IV STA (00:50)
[2023-02-13] MEDS ORDERED: ACETAMINOPHEN 500 MG TAB PO STA (00:50)
[2023-02-13] MEDS ORDERED: LIDOCAINE 5% 1 PATCH TD STA (00:50)
--- NOTE | 2023-02-13 00:58 | History & Physical Report ---
Date of Service February 13, 2023 Assessment & Plan (1) Acute on chronic kidney failure: Plan: 72yo Male with PMH CKD3, alcohol dependence, hx IV drug use in remission, HTN, HLD, anxiety, DM2, prostate cancer, Hx. aflutter, back pain s/p surgical intervention, hx gout sent by cardiology for concern JACK on CKD. JACK on CKD -average creat 2.5, on admit 5.62. Uncertain if this is due to medication changes, cardiorenal syndrome, dehydration. No signs obstruction, patient urinating normally -in ED received NSS 1.5L -CT A/P: Mild wall thickening of the urinary bladder,. Mild pericardial calcifications. Ventral abdominal wall hernia with small bowel. No small bowel obstruction at this time. RIGHT sacroiliac arthrodesis. Multilevel lumbosacral fusion hardware. Posterior RIGHT renal cyst measures approximately 2 cm, Diverticulosis, without acute diverticulitis. No free intraperitoneal air. -admit to med/tele -repeat BMP pending -placed consult to nephrology -hold lisinopril -ordered NSS 1L bolus and 125mls/h -ordered UA, urine osm, urine sodium, urine creat Hyperkalemia -on admit K 5.4 -EKG NSR -started on IVF -received Veltassa 8.4g PO -received calcium gluconate 1g for cardioprotection -repeat BMP pending Dyspnea on Exertion -echo Jun 2022 normal EF -ordered repeat echo Hx. Aflutter -metoprolol on hold -continue eliquis at reduced dose given JACK -per patient cardiology had plans to switch to warfarin Hypotension -in ED received 1.5L NSS -ordered additional 1L NSS -hold diltiazem, lisinopril, metoprolol -trend I&O Substance Use Disorder (hx alcohol and IV drug use) -drinks 2 large glasses rum, last drink 12 days ago -ordered blood alcohol level Lumbar back pain s/p falls -ordered XR lumbar and pelvis -ordered CK level -hold oxycodone given hypotension -PRN tylenol lidocaine patches DM2 -ordered SSI -hold metformin Anxiety -continue paroxetine, if renal function does not improve may need to reduce dosage -hold diazepam for now given hypotension FENa: heart healthy carb consistent Code Status: Full DVT PPX: eliquis PT/OT: ordered Dispo: med/tele Pavithra Burns D.O. PGY 3, FCM (2) Alcohol dependence: (3) 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, type 2: (4) Anxiety: (5) Lumbar back pain: (6) Hypertension: (7) Hyperlipidemia: (8) Prostate cancer: (9) Atrial flutter with rapid ventricular response: History of Present Illness Chief Complaint: JACK Primary Care Provider: Nithya Foster 72yo Male with PMH CKD3, alcohol dependence, HTN, HLD, anxiety, DM2, prostate cancer, Hx. aflutter, back pain s/p surgical intervention, hx gout sent by cardiology for concern JACK on CKD. Patient states he had a cardiology f/u appt today after starting metoprolol and eliquis for hx aflutter, after starting the medication states he did not feel well noted feeling tired fatigued low appetite. States cardiology was planning to switch him to warfarin, wanted baseline labs first. Office creat was 4.96 with K 5.1, they called police to find patient to bring him to hospital. At this time patient denies any SOB at rest swelling in extremities, states he has been urinating normally with slight strain. He describes occasional nausea, occasional swelling in abd in morning that improves in afternoon. Patient states he has significant BECKHAM states standing to shower for a few minutes makes him short of breath. He denies any history MD CHF stroke, denies other recent medication changes. Patient states he usually drinks 2 large glasses of rum at a time, last drink 12 days ago. Patient aware of need for hospital stay and evaluation. 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 Allergies Allergy/AdvReac Type Severity Reaction Status Date / Time house dust Allergy Unknown congestion,difficulty Verified 02/12/23 22:08 breathing- receives allergy shots mold Allergy Unknown nasal Verified 02/12/23 22:08 congestion, difficulty breathing Penicillins Allergy Unknown rash, hives Verified 02/12/23 22:08 Home Medications Medication Instructions Recorded Confirmed Type metformin 500 mg tablet 500 mg PO HS 01/28/18 02/12/23 History multivitamin 1 tab PO HS 01/28/18 02/12/23 History lisinopril 20 mg tablet (Zestril) 20 mg PO HS 08/16/19 02/12/23 History paroxetine HCl 40 mg tablet (Paxil) 40 mg PO HS 01/04/22 02/12/23 History oxycodone 5 mg tablet 5 mg PO TID PRN Pain 04/13/22 02/12/23 History paroxetine HCl 20 mg tablet 20 mg PO HS 04/13/22 02/12/23 History rosuvastatin 40 mg tablet 40 mg PO HS 04/13/22 02/12/23 History apixaban 5 mg tablet (Eliquis) 5 mg PO BID 30 days #60 tabs 06/30/22 02/12/23 Rx cholecalciferol (vitamin D3) 25 25 mcg PO HS 02/12/23 02/12/23 History mcg (1,000 unit) tablet (Vitamin D3) diazepam 5 mg tablet 5 mg PO BID 02/12/23 02/12/23 History diltiazem HCl 30 mg tablet 30 mg PO BID 02/12/23 02/12/23 History metoprolol succinate 25 mg 25 mg PO HS 02/12/23 02/12/23 History tablet,extended release 24 hr Past Med/Surg History Medical History Acute kidney injury Alcohol dependence Anxiety Cancer Chronic pain syndrome Chronic use of benzodiazepine for therapeutic purpose CKD (chronic kidney disease) Depression 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, type 2 Elevated troponin Hepatitis C History of benign eye tumor Hyperlipidemia Hypertension Hypomagnesemia Hyponatremia Sepsis Stage 3b chronic kidney disease Tremor Surgical History History of Achilles tendon repair History of appendectomy History of back surgery History of colonoscopy History of difficult intubation History of elbow surgery History of eye surgery History of eyelid surgery History of facial surgery History of fusion of cervical spine History of herniorrhaphy History of incision and drainage History of nasal septoplasty History of prostatectomy History of repair of rotator cuff History of spinal fusion History of tonsillectomy Family History Uncle Family history of diabetes mellitus Cancer Mother FHx: breast cancer Aneurysm FRONTAL LOBE Breast cancer Father FHx: aortic aneurysm Lewy body dementia Cancer Social History Smoking Status: Never smoker Tobacco Type: Cigarettes packs per day: 1; Second Hand Exposure: No; Do You Dip or Chew Tobacco: No; Hx Alcohol Use: Yes Alcohol type: hard liquor Alcohol type Comment: 3 drinks daily Hx Substance Use: Yes Substance Use Type Other:: in the Preferred Language: [place] Communication Ability: Effective Visual Impairment: Limited Hearing Ability: Normal Mri Supervisor Required: No Beliefs That Will Affect Care: None marital status: Single Current Living Situation: Alone current occupational status: retired 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[employer], 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, 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 other: 1 daughter Feels Safe at Home: Yes Assistive Devices: None Physical Exam Constitutional: well developed, well nourished, cooperative and comfortable Eyes: PERRL, conjunctivae normal, anicteric sclerae ENMT: external ear and nose normal, oropharynx normal Neck: trachea midline, no thyromegaly Respiratory: normal respiratory effort, lungs clear to auscultation Cardiovascular: Rate/Rhythm: regular rate and regular rhythm Extremities: no edema Gastrointestinal (Abdomen): Inspection/Auscultation: abdomen normal to inspection Percussion/Palpation: abdomen soft; abdomen nontender Skin: no rashes, warm and dry Results & Data Results & Data Vital Signs (Past 12 Hours) Vital Signs Temp Pulse Pulse Resp BP BP Pulse Ox 02/13/23 00:15 53 L 17 90/59 L 97 02/13/23 00:00 54 L 19 92/65 L 98 02/12/23 23:45 54 L 21 95/63 L 98 02/12/23 23:30 55 L 18 98/66 L 97 02/12/23 23:15 55 L 15 81/63 L 96 02/12/23 23:10 55 L 19 96 02/12/23 23:00 13 98 02/12/23 22:50 97 02/12/23 22:45 56 L 19 99 02/12/23 22:45 86/62 L 02/12/23 22:40 58 L 24 96 02/12/23 22:30 57 L 21 97 02/12/23 22:30 90/63 L 02/12/23 22:20 57 L 25 H 94 02/12/23 22:15 58 L 23 96 02/12/23 22:15 90/58 L 02/12/23 22:10 56 L 16 96 02/12/23 22:04 78/58 L 02/12/23 22:04 56 L 15 02/12/23 22:03 77/59 L 02/12/23 22:03 57 L 15 02/12/23 22:01 80/52 L 02/12/23 22:01 57 L 14 02/12/23 22:00 57 L 10 L 02/12/23 21:54 56 L 13 02/12/23 21:54 96/57 L 02/12/23 21:53 65 19 02/12/23 21:44 83/58 L 02/12/23 21:44 58 L 28 H 97 02/12/23 21:40 57 L 20 95 02/12/23 21:30 58 L 25 H 95 02/12/23 21:20 58 L 20 97 02/12/23 21:15 88/53 L 02/12/23 21:15 56 L 21 95 02/12/23 21:10 57 L 11 L 94 02/12/23 21:00 58 L 21 95 02/12/23 21:00 85/59 L 02/12/23 20:50 58 L 25 H 95 02/12/23 20:45 85/57 L 02/12/23 20:45 58 L 23 95 02/12/23 20:40 59 L 22 96 02/12/23 20:35 92/57 L 02/12/23 20:35 63 17 81 L 02/12/23 20:30 58 L 18 92 02/12/23 20:23 59 L 14 02/12/23 20:23 98/63 L 02/12/23 20:22 19 02/12/23 20:25 02/12/23 20:25 98 02/12/23 20:25 58 L 14 98/63 L 98 02/12/23 19:29 36.3 C L 63 18 85/61 L 99 O2 Del Method 02/13/23 00:15 02/13/23 00:00 02/12/23 23:45 02/12/23 23:30 02/12/23 23:15 02/12/23 23:10 02/12/23 23:00 02/12/23 22:50 02/12/23 22:45 02/12/23 22:45 02/12/23 22:40 02/12/23 22:30 02/12/23 22:30 02/12/23 22:20 02/12/23 22:15 02/12/23 22:15 02/12/23 22:10 02/12/23 22:04 02/12/23 22:04 02/12/23 22:03 02/12/23 22:03 02/12/23 22:01 02/12/23 22:01 02/12/23 22:00 02/12/23 21:54 02/12/23 21:54 02/12/23 21:53 02/12/23 21:44 02/12/23 21:44 02/12/23 21:40 02/12/23 21:30 02/12/23 21:20 02/12/23 21:15 02/12/23 21:15 02/12/23 21:10 02/12/23 21:00 02/12/23 21:00 02/12/23 20:50 02/12/23 20:45 02/12/23 20:45 02/12/23 20:40 02/12/23 20:35 02/12/23 20:35 02/12/23 20:30 02/12/23 20:23 02/12/23 20:23 02/12/23 20:22 02/12/23 20:25 Room Air 02/12/23 20:25 Room Air 02/12/23 20:25 Room Air 02/12/23 19:29 Room Air Supervising Physician Co-Signing Physician Notes Attending addendum: I have physically seen this patient, have supervised the medical residents activities, and agree with the H&P unless as otherwise noted. Assessment and Plan: Acute kidney injury superimposed on CKD/hyperkalemia/hypertension- Creatinine 5.62 on admission, with base 2.47 Contributing factors include but not limited to: RAPHAEL inhibitor, dehydration, possible postobstructive component, analgesic nephropathy CT notes bladder wall thickening, however, does not note hydroureter or hydrone phrosis Patient did receive NSS 250 mL boluses x2, and then started on NSS at 125 MLS per hour by the ED Hold lisinopril Continue metoprolol succinate Calcium gluconate 1 g IV now Veltassa 8.4 g p.o. x1 now NSS at 125 mils per hour Repeat renal function panel and magnesium level in a few hours shows potassium down to 4.9 and creatinine down to 5.14. Hold on bicarb for now Repeat laboratories in the a.m. Consult nephrology Chronic low back pain- Lumbosacral fusion hardware, right sacroiliac arthrodesis Patient reports having been told that at least one of the screws came loose from his previous surgery We will check a x-ray of lumbosacral spine and pelvis Reports he has had 4-5 surgeries, all of which been done by Dr. Blank, so if necessary he can be consulted Atrial flutter/paroxysmal atrial tachycardia/paroxysmal ventricular tachycardia- Continue apixaban, diltiazem and metoprolol succinate Remaining orders and notations as noted Resident Activity Tracking Resident Involvement: Resident Care Provided Care Provided: Adult [facility] (1) Acute on chronic kidney failure Acute renal failure type: unspecified Chronic kidney disease stage: unspecified stage Qualified Code(s): N17.9 - Acute kidney failure, unspecified; N18.9 - Chronic kidney disease, unspecified (2) Alcohol dependence Substance use status: uncomplicated Qualified Code(s): F10.20 - Alcohol dependence, uncomplicated (3) 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, type 2 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 complication status: without complication 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 assisted insulin use: without assisted use Qualified Code(s): E11.9 - Type 2 diabetes mellitus without complications
[2023-02-13] MEDS ORDERED: GLUCOSE 10 TAB/TUBE PO PRN (01:11)
[2023-02-13] MEDS ORDERED: GLUCOSE 40% GEL 15 GM TUBE PO PRN (01:11)
[2023-02-13] MEDS ORDERED: DEXTROSE 50% 50 ML SYRINGE IV PRN (01:11)
[2023-02-13] MEDS ORDERED: GLUCAGON FOR INJ 1 MG VIAL SQ PRN (01:11)
[2023-02-13] MEDS ORDERED: CARBOHYDRATES FOR HYPOGLYCEMIA PO PRN (01:11)
[2023-02-13 02:19] LABS: Calcium 9.4 mg/dl (8.6-10.3); Creatinine Clr Calc Pharmacy 16.3 ml/min; Est GFR (African American) 12.2 ml/min; Est GFR (Non-African American) 10.5 ml/min; Potassium 4.9 mmol/L (3.5-5.1)
[2023-02-13] MEDS ORDERED: oxyCODONE HCL IR 5 MG TAB (IMMEDIATE RELEASE) PO PRN (02:33)
[2023-02-13] MEDS ORDERED: POLYETHYLENE (MIRALAX) 17 GM PACK PO PRN (02:33)
[2023-02-13] MEDS ORDERED: ACETAMINOPHEN 325 MG TAB PO PRN (02:33)
--- NOTE | 2023-02-13 04:52 | Billing Data ---
Date of Service February 13, 2023 Coding Level of Care Code 77003 INT INP/OBS CARE
[2023-02-13] MEDS: SODIUM CHLORIDE 0.9% 1,000 ML IV SCH ×2 (05:15→11:52)
--- NOTE | 2023-02-13 07:06 | XRay Report ---
XR lumbar spine 2-3V CLINICAL HISTORY: falls COMPARISON STUDY: Lumbar spine CT March 22, 2019. Lumbar spine radiographs July 01, 2018. FINDINGS: Multilevel decompression and fusion is noted. Fusion extends from T11 through S1. One of th e T11 screws, likely the left screw, is fractured. Otherwise, hardware is intact. No acute lumbar spi ne fracture is present. L1-L2, L2-L3, L4-L5 and L5-S1 discectomies are noted. There is a right SI sofia nt fusion. IMPRESSION: 1. No acute lumbar spine fracture or subluxation. 2. Status post multilevel spine decompression, fusion and discectomy. Fusion extends from T11 through S1. One of the T11 screws, likely the left screw, is fractured. Otherwise, hardware intact. Right SI joint fusion. ACT 112: Negative or not required by law. Electronically signed by: Issac Vu M.D. 02/13/2023 7:04 AM
--- NOTE | 2023-02-13 07:07 | XRay Report ---
XR chest 1V portable CLINICAL HISTORY: Chest pain, nonspecific. COMPARISON STUDY: Chest CT June 27, 2022. Chest radiograph June 30, 2022. FINDINGS: Anterior cervical spine fusion is incidentally noted. Lung volumes are normal. Lungs are cl ear. There is no pneumothorax or pleural effusion. Cardiac size is stable. Mediastinal contours are n ormal. There is no evidence for pulmonary edema. IMPRESSION: No acute cardiopulmonary findings. ACT 112: Negative or not required by law. Electronically signed by: Issac Vu M.D. 02/13/2023 7:06 AM
--- NOTE | 2023-02-13 07:16 | Hospitalist Progress Note ---
Date of Service February 13, 2023 Assessment & Plan (1) Acute on chronic kidney failure: Plan: Sawyer Coleman is a 72 year-old male with a past medical history of CKD3, alcohol dependence, hx IV drug use in remission, HTN, HLD, anxiety, DM2, prostate cancer, Hx. aflutter, back pain s/p surgical intervention, hx gout sent by cardiology for concern JACK on CKD. JACK on CKD -Baseline creat 2.5, on admit 5.62. Uncertain if this is due to medication changes, cardiorenal syndrome, dehydration- suspect prerenal etiology and possible ATN. No signs obstruction, patient urinating normally -CT A/P: Mild wall thickening of the urinary bladder, mild pericardial calcifications. Ventral abdominal wall hernia with small bowel. No small bowel obstruction at this time. RIGHT sacroiliac arthrodesis. Multilevel lumbosacral fusion hardware. Posterior RIGHT renal cyst measures approximately 2 cm, Diverticulosis, without acute diverticulitis. No free intraperitoneal air. -Nephrology consulted, appreciate recommendations -Continue IV hydration -UA, urine osm, urine sodium, urine creat pending Hyperkalemia -on admit K 5.4, repeat this morning at 5.2 -EKG NSR -started on IVF -received Veltassa 8.4g PO and calcium gluconate 1g for cardioprotection -Repeat BMP ordered for this afternoon and tomorrow a.m. Dyspnea on Exertion -echo Jun 2022 normal EF -ordered repeat echo: read is largely unchanged from prior echo Atrial Flutter -metoprolol on hold given hypotension -continue Eliquis at reduced dose given JACK -per patient cardiology had plans to switch to warfarin Hypotension -Likely due to poor PO intake for several weeks -hold diltiazem, lisinopril, metoprolol due to hypotension -Strict I's & O's -Normotensive today Substance Use Disorder (hx alcohol and IV drug use) -drinks 2 large glasses rum, last drink 12 days ago -Blood alcohol level negative Chronic Lumbar back pain -Patient endorses several recent falls at home -XR lumbar and pelvis without acute bony abnormality, T11 screw possibly fractured -No current indications for ortho consult or surgical in -CK level within normal limits -Chronic oxycodone 5mg at home, increased dose to 10mg given increased pain -Scheduled Tylenol ordered -PT/OT consulted DM2 -Ordered SSI -Hold metformin Anxiety -Continue paroxetine, if renal function does not improve may need to reduce dosage -Has been on chronic diazepam for several years, will resume diazepam 5mg BID FENa: heart healthy, carb consistent, low potassium Code Status: Full DVT PPX: Eliquis PT/OT: ordered (2) Alcohol dependence: (3) 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, type 2: (4) Anxiety: (5) Lumbar back pain: (6) Hypertension: (7) Hyperlipidemia: (8) Prostate cancer: (9) Atrial flutter with rapid ventricular response: Admission and Anticipated Discharge Date Admission Date: February 13, 2023 Supervising Physician Co-Signing Physician Notes I personally examined the patient and verified all guerrero points of history and exam, discussed case, and agree with decision making with Dr Meza ARF - fluids, time, appreciate nephro input back pain - comprehesnive plan to be build. hardware fx may be some of mid back. more aggerssive pain control for now otherwise as above, anticoagulated w eliquis Subjective Patient seen and examined at bedside. No acute events overnight since admission. Notes ongoing back pain, worsened by uncomfortable office bed. Patient notes that since he was started on metoprolol and Eliquis due to new atrial fibrillation, has had nausea and decreased appetite. Notes that he has only been eating 1 meal per day and decreased PO intake. Denies chest pain or shortness of breath at present. Review of Systems Review of Systems: As per above Physical Exam Constitutional: WD/WN, vitals as above Eyes: + anicteric sclerae; no conjunctival abnormality ENMT: Ears: no external ear abnormality Nose: no external nose abnormality Moist mucous membranes Respiratory: normal respiratory effort, lungs clear to auscultation Cardiovascular: Rate/Rhythm: + irregularly irregular No lower extremity edema bilaterally Gastrointestinal (Abdomen): normal bowel sounds, soft, nontender, no hepatosplenomegaly Musculoskeletal: Moves all limbs independently Skin: no rashes, warm and dry Psychiatric: A+Ox3, euthymic affect Results & Data Results & Data Vital Signs (Past 12 Hours) Vital Signs Temp Pulse Pulse Resp BP BP Pulse Ox 02/13/23 05:00 51 L 18 112/66 100 02/13/23 04:00 60 13 107/57 L 94 02/13/23 03:30 57 L 98/67 L 95 02/13/23 03:00 57 L 105/69 95 02/13/23 02:45 65 109/74 02/13/23 02:30 60 116/75 98 02/13/23 02:16 115/70 02/13/23 01:15 54 L 18 98/64 L 93 02/13/23 01:00 53 L 18 100/70 93 02/13/23 00:45 51 L 18 97/73 L 100 02/13/23 00:30 59 L 18 94/68 L 98 02/13/23 03:46 58 L 02/13/23 00:15 53 L 17 90/59 L 97 02/13/23 00:00 54 L 19 92/65 L 98 02/12/23 23:45 54 L 21 95/63 L 98 02/12/23 23:30 55 L 18 98/66 L 97 02/12/23 23:15 55 L 15 81/63 L 96 02/12/23 23:10 55 L 19 96 02/12/23 23:00 13 98 02/12/23 22:50 97 02/12/23 22:45 56 L 19 99 02/12/23 22:45 86/62 L 02/12/23 22:40 58 L 24 96 02/12/23 22:30 57 L 21 97 02/12/23 22:30 90/63 L 02/12/23 22:20 57 L 25 H 94 02/12/23 22:15 58 L 23 96 02/12/23 22:15 90/58 L 02/12/23 22:10 56 L 16 96 02/12/23 22:04 78/58 L 02/12/23 22:04 56 L 15 02/12/23 22:03 77/59 L 02/12/23 22:03 57 L 15 02/12/23 22:01 80/52 L 02/12/23 22:01 57 L 14 02/12/23 22:00 57 L 10 L 02/12/23 21:54 56 L 13 02/12/23 21:54 96/57 L 02/12/23 21:53 65 19 02/12/23 21:44 83/58 L 02/12/23 21:44 58 L 28 H 97 02/12/23 21:40 57 L 20 95 02/12/23 21:30 58 L 25 H 95 02/12/23 21:20 58 L 20 97 02/12/23 21:15 88/53 L 02/12/23 21:15 56 L 21 95 02/12/23 21:10 57 L 11 L 94 02/12/23 21:00 58 L 21 95 02/12/23 21:00 85/59 L 02/12/23 20:50 58 L 25 H 95 02/12/23 20:45 85/57 L 02/12/23 20:45 58 L 23 95 02/12/23 20:40 59 L 22 96 02/12/23 20:35 92/57 L 02/12/23 20:35 63 17 81 L 02/12/23 20:30 58 L 18 92 02/12/23 20:23 59 L 14 02/12/23 20:23 98/63 L 02/12/23 20:22 19 02/12/23 20:25 02/12/23 20:25 98 02/12/23 20:25 58 L 14 98/63 L 98 02/12/23 19:29 36.3 C L 63 18 85/61 L 99 O2 Del Method 02/13/23 05:00 02/13/23 04:00 02/13/23 03:30 02/13/23 03:00 02/13/23 02:45 02/13/23 02:30 02/13/23 02:16 02/13/23 01:15 02/13/23 01:00 Room Air 02/13/23 00:45 02/13/23 00:30 Room Air 02/13/23 03:46 02/13/23 00:15 02/13/23 00:00 02/12/23 23:45 02/12/23 23:30 02/12/23 23:15 02/12/23 23:10 02/12/23 23:00 02/12/23 22:50 02/12/23 22:45 02/12/23 22:45 02/12/23 22:40 02/12/23 22:30 02/12/23 22:30 02/12/23 22:20 02/12/23 22:15 02/12/23 22:15 02/12/23 22:10 02/12/23 22:04 02/12/23 22:04 02/12/23 22:03 02/12/23 22:03 02/12/23 22:01 02/12/23 22:01 02/12/23 22:00 02/12/23 21:54 02/12/23 21:54 02/12/23 21:53 02/12/23 21:44 02/12/23 21:44 02/12/23 21:40 02/12/23 21:30 02/12/23 21:20 02/12/23 21:15 02/12/23 21:15 02/12/23 21:10 02/12/23 21:00 02/12/23 21:00 02/12/23 20:50 02/12/23 20:45 02/12/23 20:45 02/12/23 20:40 02/12/23 20:35 02/12/23 20:35 02/12/23 20:30 02/12/23 20:23 02/12/23 20:23 02/12/23 20:22 02/12/23 20:25 Room Air 02/12/23 20:25 Room Air 02/12/23 20:25 Room Air 02/12/23 19:29 Room Air Diagnostic Findings Chest X-Ray 02/12/23 19:30 XR chest 1V portable CLINICAL HISTORY: Chest pain, nonspecific. COMPARISON STUDY: Chest CT June 27, 2022. Chest radiograph June 30, 2022. FINDINGS: Anterior cervical spine fusion is incidentally noted. Lung volumes are normal. Lungs are clear. There is no pneumothorax or pleural effusion. Cardiac size is stable. Mediastinal contours are normal. There is no evidence for pulmonary edema. IMPRESSION: No acute cardiopulmonary findings. ACT 112: Negative or not required by law. Electronically signed by: Issac Vu M.D. 02/13/2023 7:06 AM Abdomen/Pelvis CT 02/12/23 21:06 Exam(s): CT ABDOMEN + PELVIS Without Contrast EXAM: CT Abdomen and Pelvis Without Intravenous Contrast CLINICAL HISTORY: Reason for exam: Acute renal failure. TECHNIQUE: Axial computed tomography images of the abdomen and pelvis without intravenous contrast. CTDI is 27.03 mGy and DLP is 1272.35 mGy-cm. Automated exposure control was utilized for the study. A dose lowering technique was utilized adhering to the principles of ALARA. COMPARISON: CT of the pelvis June 27, 2022 FINDINGS: Lung bases: Unremarkable. No mass. No consolidation. Heart: Mild pericardial calcifications. ABDOMEN: Liver: Unremarkable. Gallbladder and bile ducts: Unremarkable. No calcified stones. No ductal dilation. Pancreas: Unremarkable. No ductal dilation. Spleen: Unremarkable. No splenomegaly. Adrenals: Unremarkable. No mass. Kidneys and ureters: Posterior RIGHT renal cyst measures approximately 2 cm, better identified on contrast exam from June 27, 2022. No obstructing stones. No hydronephrosis. Stomach and bowel: Ventral abdominal wall hernia, which contains a single, small to small bowel. No small bowel obstruction at this time. This may be manually reducible. Diverticulosis, without acute diverticulitis. No small bowel obstruction. No free intraperitoneal air. PELVIS: Appendix: No findings to suggest acute appendicitis. Bladder: Mild wall thickening of the urinary bladder, correlate for UTI. Decompressed urinary bladder. No stones. Reproductive: Unremarkable as visualized. ABDOMEN and PELVIS: Intraperitoneal space: Unremarkable. No free air. No significant fluid collection. Bones/joints: Degenerative changes of the spine. RIGHT sacroiliac arthrodesis. Multilevel lumbosacral fusion hardware. No acute fracture. No dislocation. Soft tissues: See above. Vasculature: Atherosclerotic changes of the aorta. No abdominal aortic aneurysm. Lymph nodes: Unremarkable. No enlarged lymph nodes. IMPRESSION: 1. Mild wall thickening of the urinary bladder, correlate for UTI. 2. Mild pericardial calcifications. 3. Ventral abdominal wall hernia, which contains a single, small to small bowel. No small bowel obstruction at this time. This may be manually reducible. 4. RIGHT sacroiliac arthrodesis. Multilevel lumbosacral fusion hardware. 5. Posterior RIGHT renal cyst measures approximately 2 cm, better identified on contrast exam from June 27, 2022. 6. Diverticulosis, without acute diverticulitis. No small bowel obstruction. No free intraperitoneal air. Electronically signed by: Ronnie Galeano MD 02/12/23 22:48 PM Lumbar Spine X-Ray 02/13/23 00:57 XR lumbar spine 2-3V CLINICAL HISTORY: falls COMPARISON STUDY: Lumbar spine CT March 22, 2019. Lumbar spine radiographs July 01, 2018. FINDINGS: Multilevel decompression and fusion is noted. Fusion extends from T11 through S1. One of the T11 screws, likely the left screw, is fractured. Otherwise, hardware is intact. No acute lumbar spine fracture is present. L1-L2, L2-L3, L4-L5 and L5-S1 discectomies are noted. There is a right SI joint fusion. IMPRESSION: 1. No acute lumbar spine fracture or subluxation. 2. Status post multilevel spine decompression, fusion and discectomy. Fusion extends from T11 through S1. One of the T11 screws, likely the left screw, is fractured. Otherwise, hardware intact. Right SI joint fusion. ACT 112: Negative or not required by law. Electronically signed by: Issac Vu M.D. 02/13/2023 7:04 AM Resident Activity Tracking Resident Involvement: Resident Care Provided Care Provided: Adult Hospital Medicine (1) Acute on chronic kidney failure Acute renal failure type: unspecified Chronic kidney disease stage: unspecified stage Qualified Code(s): N17.9 - Acute kidney failure, unspecified; N18.9 - Chronic kidney disease, unspecified (2) Alcohol dependence Substance use status: uncomplicated Qualified Code(s): F10.20 - Alcohol dependence, uncomplicated (3) 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, type 2 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 complication status: without complication 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 terminal manager insulin use: without terminal manager use Qualified Code(s): E11.9 - Type 2 diabetes mellitus without complications
--- NOTE | 2023-02-13 07:25 | XRay Report ---
XR hip JESUS 2v w pelvis CLINICAL HISTORY: Fall COMPARISON STUDY: CT of the abdomen and pelvis February 12, 2023. FINDINGS: Postoperative findings within the spine are partially imaged. There is a right SI joint fus ion. No acute fracture within the pelvis or hips is identified. Degenerative changes at the symphysis pubis are incidentally noted. IMPRESSION: No acute fracture within the pelvis or hips. ACT 112: Negative or not required by law. Electronically signed by: Issca Vu M.D. 02/13/2023 7:24 AM
[2023-02-13 07:54] LABS: Calcium 9.2 mg/dl (8.6-10.3); Potassium 5.2 mmol/L (3.5-5.1)
[2023-02-13 08:04] LABS: BUN Creatinine Ratio 14.9 (10-20); Creatinine Clr Calc Pharmacy 17.3 ml/min; Est GFR (African American) 13.1 ml/min; Est GFR (Non-African American) 11.3 ml/min
[2023-02-13] MEDS: INSULIN ASPART PER UNIT CHARGE SC SCH ×4 (09:01→20:42)
[2023-02-13] MEDS: APIXABAN 5 MG TABLET PO SCH ×2 (09:40→20:34)
--- NOTE | 2023-02-13 09:55 | Nephrology Consultation ---
Date of Consultation February 13, 2023 Assessment & Plan (1) Acute on chronic kidney failure: Non-oliguric. Volume status acceptable. IVF provided for intravascular volume depletion. Electrolytes improved. 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 Clinical history suggestive of prerenal physiology + possible ATN. Etiology not entirely clear but creatinine is improving with intravascular volume expansion. CT demonstrates kidneys to be unobstructed. Urine microscopy is acellular. Repeat metabolic profile this afternoon. Document I/O's. Medications are currently appropriately dosed for kidney function. Lisinopril and metformin held. Rosuvastatin has been dose adjusted from 40 mg daily to 10 mg daily. (2) Alcohol dependence: Last drink 12 days ago. (3) 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, type 2: Metformin held due to JACK. (4) Hypertension: Hypotensive on admission. Antihypertensives held. Avoid RAAS blockade given JAKC. (5) Atrial flutter with rapid ventricular response: Metoprolol on hold due to low BP. Eliquis dosing acceptable. (6) Hyperkalemia: Improved with Lokelma. Continue IVF to encourage urine output. Repeat blood work this afternoon. Low potassium diet. No acute EKG changes noted. ACEi held. History of Present Illness Reason for Consultation: JACK on CKD Requesting Physician: Francis Mera DO Attending Physician: Francis Mera DO History of Present Illness Sawyer is a 72 year old male with a history of CKD stage G3b/A2, diabetes mellitus type II, hypertension, spinal fusions, and previous hospitalization in June who presents to [facility] with JACK. He recently saw his medical office receptionist with concerns about his Eliquis. Sawyer felt the medication was making him lethargic, sleepy, and giving him loss of appetite after starting this 2-3 weeks ago. Planning to switch to Coumadin, bloodwork revealed elevated BUN and creatinine. On admission, his creatinine was 5.62 and BUN was 72. His blood pressure was 92/65 and his potassium was 5.4. CO2 was [address] Olivas for nephrology, his baseline creatinine is 1.6-1.9 w/ mGFR 39.6 cc/min. In October creatinine had been ~2.5 mg/dL. CT shows posterior right renal cyst about 2 cm. Kidneys are otherwise notable for symmetric cortical atrophy. There is no obstruction. Treatment has included Veltassa 8.4 g PO and calcium gluconate 1 g, and UA, urine osm, urine sodium, and urine creatinine were ordered last night. Metroprolol was put on hold and he was put on a reduced dose of Eliquis. This AM he feels that his lethargy and sluggishness has improved. He does not report any major concerns besides his back pain. He reports managing his diabetes well on metformin and controlling his hypertension well with lisinopril. He is not using any NSAIDs. He denies palpitations, feeling like his heart is skipping a beat, shortness of breath, and abdominal pain. Potassium is 5.2 this AM. CO2 is 18 L. BUN is 72 and creatinine is 4.83. UA still pending. On physical exam, when asked to sit up, he began shaking while holding himself up. This shaking resolved while lying back down in the bed. Sawyer attributes this to the pain in his back. Allergies Allergy/AdvReac Type Severity Reaction Status Date / Time house dust Allergy Unknown congestion,difficulty Verified 02/12/23 22:08 breathing- receives allergy shots mold Allergy Unknown nasal Verified 02/12/23 22:08 congestion, difficulty breathing Penicillins Allergy Unknown rash, hives Verified 02/12/23 22:08 Home Medications Medication Instructions Recorded Confirmed Type metformin 500 mg tablet 500 mg PO HS 01/28/18 02/12/23 History multivitamin 1 tab PO HS 01/28/18 02/12/23 History lisinopril 20 mg tablet (Zestril) 20 mg PO HS 08/16/19 02/12/23 History paroxetine HCl 40 mg tablet (Paxil) 40 mg PO HS 01/04/22 02/12/23 History oxycodone 5 mg tablet 5 mg PO TID PRN Pain 04/13/22 02/12/23 History paroxetine HCl 20 mg tablet 20 mg PO HS 04/13/22 02/12/23 History rosuvastatin 40 mg tablet 40 mg PO HS 04/13/22 02/12/23 History apixaban 5 mg tablet (Eliquis) 5 mg PO BID 30 days #60 tabs 06/30/22 02/12/23 Rx cholecalciferol (vitamin D3) 25 25 mcg PO HS 02/12/23 02/12/23 History mcg (1,000 unit) tablet (Vitamin D3) diazepam 5 mg tablet 5 mg PO BID 02/12/23 02/12/23 History diltiazem HCl 30 mg tablet 30 mg PO BID 02/12/23 02/12/23 History metoprolol succinate 25 mg 25 mg PO HS 02/12/23 02/12/23 History tablet,extended release 24 hr Patient History Medical History Acute kidney injury Alcohol dependence Anxiety Cancer Chronic pain syndrome Chronic use of benzodiazepine for therapeutic purpose CKD (chronic kidney disease) Depression 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, type 2 Elevated troponin Hepatitis C History of benign eye tumor Hyperlipidemia Hypertension Hypomagnesemia Hyponatremia Sepsis Stage 3b chronic kidney disease Tremor Surgical History History of Achilles tendon repair History of appendectomy History of back surgery History of colonoscopy History of difficult intubation History of elbow surgery History of eye surgery History of eyelid surgery History of facial surgery History of fusion of cervical spine History of herniorrhaphy History of incision and drainage History of nasal septoplasty History of prostatectomy History of repair of rotator cuff History of spinal fusion History of tonsillectomy Family History Uncle Family history of diabetes mellitus Cancer Mother FHx: breast cancer Aneurysm FRONTAL LOBE Breast cancer Father FHx: aortic aneurysm Lewy body dementia Cancer Social History Smoking Status: Never smoker Tobacco Type: Cigarettes packs per day: 1; Second Hand Exposure: No; Do You Dip or Chew Tobacco: No; Hx Alcohol Use: Yes Alcohol type: hard liquor Alcohol type Comment: 3 drinks daily Hx Substance Use: Yes Substance Use Type Other:: in the 1970s Preferred Language: Ecuadorean Communication Ability: Effective Visual Impairment: Limited Hearing Ability: Normal Machine I Trimmer Required: No Beliefs That Will Affect Care: None marital status: Single Current Living Situation: Alone current occupational status: retired 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 Physical Exam Constitutional: well developed; no acute distress Eyes: no scleral abnormality and no corneal abnormality ENMT: Mouth: no oral mucosal abnormality and oral mucous membranes not dry Neck: normal visual inspection and trachea midline Respiratory: normal respiratory effort Auscultation: lungs clear to auscultation bilaterally Cardiovascular: Rate/Rhythm: regular rate Heart Sounds: normal S1 and normal S2 Extremities: no edema Musculoskeletal: Extremities: no cyanosis and no clubbing Skin: normal turgor; no lesions Neurologic: Motor/Sensory: no tremor and no asterixis Psychiatric: Orientation: alert and oriented x 3 Results & Data Vital Signs (Past 12 Hours) Vital Signs Pulse Pulse Resp BP Pulse Ox O2 Del Method 02/13/23 07:47 53 L 02/13/23 05:00 51 L 18 112/66 100 02/13/23 04:00 60 13 107/57 L 94 02/13/23 03:30 57 L 98/67 L 95 02/13/23 03:00 57 L 105/69 95 02/13/23 02:45 65 109/74 02/13/23 02:30 60 116/75 98 02/13/23 02:16 115/70 02/13/23 01:15 54 L 18 98/64 L 93 02/13/23 01:00 53 L 18 100/70 93 Room Air 02/13/23 00:45 51 L 18 97/73 L 100 02/13/23 00:30 59 L 18 94/68 L 98 Room Air 02/13/23 03:46 58 L 02/13/23 00:15 53 L 17 90/59 L 97 02/13/23 00:00 54 L 19 92/65 L 98 02/12/23 23:45 54 L 21 95/63 L 98 02/12/23 23:30 55 L 18 98/66 L 97 02/12/23 23:15 55 L 15 81/63 L 96 02/12/23 23:10 55 L 19 96 02/12/23 23:00 13 98 02/12/23 22:50 97 02/12/23 22:45 56 L 19 99 02/12/23 22:45 86/62 L 02/12/23 22:40 58 L 24 96 02/12/23 22:30 57 L 21 97 02/12/23 22:30 90/63 L 02/12/23 22:20 57 L 25 H 94 02/12/23 22:15 58 L 23 96 02/12/23 22:15 90/58 L 02/12/23 22:10 56 L 16 96 02/12/23 22:04 78/58 L 02/12/23 22:04 56 L 15 02/12/23 22:03 77/59 L 02/12/23 22:03 57 L 15 02/12/23 22:01 80/52 L 02/12/23 22:01 57 L 14 02/12/23 22:00 57 L 10 L Laboratory Results Laboratory Results - last 24 hr 02/12/23 02/12/23 02/12/23 19:45 19:45 19:45 WBC 7.53 RBC 4.63 L Hgb 15.7 Hct 45.1 MCV 97.4 MCH 33.9 MCHC 34.8 RDW Std Deviation 47.6 H RDW Coeff of Diana 13.2 Plt Count 266 MPV 10.2 Immature Gran % (Auto) 0.3 Neut % (Auto) 59.9 Lymph % (Auto) 21.2 Cocke % (Auto) 14.1 Eos % (Auto) 4.0 Baso % (Auto) 0.5 Neut # (Auto) 4.51 Lymph # (Auto) 1.60 Cocke # (Auto) 1.06 H Eos # (Auto) 0.30 Baso # (Auto) 0.04 Immature Gran # (Auto) 0.02 PT Cancelled INR Cancelled APTT Cancelled PTT Ratio Cancelled Sodium 132 L Potassium TNP Chloride 102 Carbon Dioxide 19 L Anion Gap 11 BUN 72 H Creatinine 5.62 H* Est Cr Clr Drug Dosing 14.9 Est GFR ( Amer) 10.9 Est GFR (Non-Af Amer) 9.4 BUN/Creatinine Ratio 12.8 Glucose 92 POC Glucose Calcium 9.9 Total Bilirubin 0.7 AST TNP ALT 14 Alkaline Phosphatase 116 H Total Creatine Kinase Troponin I High Sens 11.9 Total Protein 8.2 Albumin 5.1 H Globulin 3.1 Albumin/Globulin Ratio 1.6 Ethyl Alcohol mg/dL SARS-CoV-2, RNA, NAAT 02/12/23 02/12/23 02/12/23 20:20 21:35 21:35 WBC RBC Hgb Hct MCV MCH MCHC RDW Std Deviation RDW Coeff of Diana Plt Count MPV Immature Gran % (Auto) Neut % (Auto) Lymph % (Auto) Cocke % (Auto) Eos % (Auto) Baso % (Auto) Neut # (Auto) Lymph # (Auto) Cocke # (Auto) Eos # (Auto) Baso # (Auto) Immature Gran # (Auto) PT 11.7 INR 1.1 APTT 24.0 PTT Ratio 0.9 Sodium Potassium 5.4 H Chloride Carbon Dioxide Anion Gap BUN Creatinine Est Cr Clr Drug Dosing Est GFR ( Amer) Est GFR (Non-Af Amer) BUN/Creatinine Ratio Glucose POC Glucose Calcium Total Bilirubin AST 17 ALT Alkaline Phosphatase Total Creatine Kinase 77 Troponin I High Sens Total Protein Albumin Globulin Albumin/Globulin Ratio Ethyl Alcohol mg/dL SARS-CoV-2, RNA, NAAT NEGATIVE 02/13/23 02/13/23 02/13/23 01:35 01:35 07:17 WBC RBC Hgb Hct MCV MCH MCHC RDW Std Deviation RDW Coeff of Diana Plt Count MPV Immature Gran % (Auto) Neut % (Auto) Lymph % (Auto) Cocke % (Auto) Eos % (Auto) Baso % (Auto) Neut # (Auto) Lymph # (Auto) Cocke # (Auto) Eos # (Auto) Baso # (Auto) Immature Gran # (Auto) PT INR APTT PTT Ratio Sodium 135 L 134 L Potassium 4.9 5.2 H Chloride 106 108 H Carbon Dioxide 20 L 18 L Anion Gap 9 8 BUN 72 H 72 H Creatinine 5.14 H* D 4.83 H* D Est Cr Clr Drug Dosing 16.3 17.3 Est GFR ( Amer) 12.2 13.1 Est GFR (Non-Af Amer) 10.5 11.3 BUN/Creatinine Ratio 14.0 14.9 Glucose 93 86 POC Glucose Calcium 9.4 9.2 Total Bilirubin AST ALT Alkaline Phosphatase Total Creatine Kinase Troponin I High Sens Total Protein Albumin Globulin Albumin/Globulin Ratio Ethyl Alcohol mg/dL < 10.0 SARS-CoV-2, RNA, NAAT 02/13/23 08:58 WBC RBC Hgb Hct MCV MCH MCHC RDW Std Deviation RDW Coeff of Diana Plt Count MPV Immature Gran % (Auto) Neut % (Auto) Lymph % (Auto) Cocke % (Auto) Eos % (Auto) Baso % (Auto) Neut # (Auto) Lymph # (Auto) Cocke # (Auto) Eos # (Auto) Baso # (Auto) Immature Gran # (Auto) PT INR APTT PTT Ratio Sodium Potassium Chloride Carbon Dioxide Anion Gap BUN Creatinine Est Cr Clr Drug Dosing Est GFR ( Amer) Est GFR (Non-Af Amer) BUN/Creatinine Ratio Glucose POC Glucose 82 Calcium Total Bilirubin AST ALT Alkaline Phosphatase Total Creatine Kinase Troponin I High Sens Total Protein Albumin Globulin Albumin/Globulin Ratio Ethyl Alcohol mg/dL SARS-CoV-2, RNA, NAAT Diagnostic Findings CT ABDOMEN + PELVIS Without Contrast COMPARISON: CT of the pelvis June 27, 2022 FINDINGS: Lung bases: Unremarkable. No mass. No consolidation. Heart: Mild pericardial calcifications. ABDOMEN: Liver: Unremarkable. Gallbladder and bile ducts: Unremarkable. No calcified stones. No ductal dilation. Pancreas: Unremarkable. No ductal dilation. Spleen: Unremarkable. No splenomegaly. Adrenals: Unremarkable. No mass. Kidneys and ureters: Posterior RIGHT renal cyst measures approximately 2 cm, better identified on contrast exam from June 27, 2022. No obstructing stones. No hydronephrosis. Stomach and bowel: Ventral abdominal wall hernia, which contains a single, small to small bowel. No small bowel obstruction at this time. This may be manually reducible. Diverticulosis, without acute diverticulitis. No small bowel obstruction. No free intraperitoneal air. PELVIS: Appendix: No findings to suggest acute appendicitis. Bladder: Mild wall thickening of the urinary bladder, correlate for UTI. Decompressed urinary bladder. No stones. Reproductive: Unremarkable as visualized. ABDOMEN and PELVIS: Intraperitoneal space: Unremarkable. No free air. No significant fluid collection. Bones/joints: Degenerative changes of the spine. RIGHT sacroiliac arthrodesis. Multilevel lumbosacral fusion hardware. No acute fracture. No dislocation. Soft tissues: See above. Vasculature: Atherosclerotic changes of the aorta. No abdominal aortic aneurysm. Lymph nodes: Unremarkable. No enlarged lymph nodes. IMPRESSION: 1. Mild wall thickening of the urinary bladder, correlate for UTI. 2. Mild pericardial calcifications. 3. Ventral abdominal wall hernia, which contains a single, small to small bowel. No small bowel obstruction at this time. This may be manually reducible. 4. RIGHT sacroiliac arthrodesis. Multilevel lumbosacral fusion hardware. 5. Posterior RIGHT renal cyst measures approximately 2 cm, better identified on contrast exam from June 27, 2022. 6. Diverticulosis, without acute diverticulitis. No small bowel obstruction. No free intraperitoneal air. XR chest 1V portable FINDINGS: Anterior cervical spine fusion is incidentally noted. Lung volumes are normal. Lungs are clear. There is no pneumothorax or pleural effusion. Cardiac size is stable. Mediastinal contours are normal. There is no evidence for pulmonary edema. IMPRESSION: No acute cardiopulmonary findings. Coding Level of Care Code 90270 IN/OBS CONSULT LVL 4,60M Diagnoses Acute on chronic kidney failure N17.9; N18.9 Acute renal failure type: unspecified Chronic kidney disease stage: unspecified stage Alcohol dependence F10.20 Substance use status: uncomplicated 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, type 2 E11.9 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 complication status: without complication 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 [facility] insulin use: without moth exterminator use Hypertension I10 Atrial flutter with rapid ventricular response I48.92 Hyperkalemia E87.5 (1) Acute on chronic kidney failure Acute renal failure type: unspecified Chronic kidney disease stage: unspecified stage Qualified Code(s): N17.9 - Acute kidney failure, unspecified; N18.9 - Chronic kidney disease, unspecified (2) Alcohol dependence Substance use status: uncomplicated Qualified Code(s): F10.20 - Alcohol dependence, uncomplicated (3) 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, type 2 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 complication status: without complication 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 moth exterminator insulin use: without [facility] use Qualified Code(s): E11.9 - Type 2 diabetes mellitus without complications
[2023-02-13] MEDS: LANTUS PER UNIT CHARGE SQ SCH ×2 (10:53→20:33)
--- NOTE | 2023-02-13 12:53 | XCELERA ---
[id number]
[2023-02-13] MEDS ORDERED: diazePAM 5 MG TABLET PO PRN (13:48)
[2023-02-13] MEDS: ACETAMINOPHEN 500 MG TAB PO SCH ×2 (14:21→20:34)
[2023-02-13] MEDS: MAGNESIUM SULFATE / D5W 1 GM/100 ML BAG IV SCH ×2 (14:21→16:02)
[2023-02-13] MEDS: oxyCODONE HCL IR 5 MG TAB (IMMEDIATE RELEASE) PO PRN (16:02)
--- NOTE | 2023-02-13 16:12 | Electrocardiogram Report ---
Test Reason : Blood Pressure : / mmHG Vent. Rate : 060 BPM Atrial Rate : 060 BPM P-R Int : 166 ms QRS Dur : 088 ms QT Int : 424 ms P-R-T Axes : 063 044 047 degrees QTc Int : 424 ms Normal sinus rhythm Normal ECG When compared with ECG of 27-JUN-2022 12:11, Previous ECG has undetermined rhythm, needs review Confirmed by Ilia Osborne ([id number]) on 02/13/2023 4:12:32 PM Referred By: REFERRED SELF Confirmed By:Ilia Osborne
[2023-02-13 16:18] LABS: Calcium 8.9 mg/dl (8.6-10.3); Creatinine Clr Calc Pharmacy 19.9 ml/min; Est GFR (African American) 15.5 ml/min; Est GFR (Non-African American) 13.4 ml/min; Potassium 4.6 mmol/L (3.5-5.1)
[2023-02-13] MEDS ORDERED: HYDROmorphone INJ 0.5 MG/0.5 ML SYR IV STA (18:06)
[2023-02-13] MEDS ORDERED: PREGABALIN 50 MG CAP PO ONE ×2 (18:08→20:25)
[2023-02-13] MEDS: PREGABALIN 75 MG CAP PO SCH (20:34)
[2023-02-13] MEDS: ROSUVASTATIN CALCIUM 10 MG TAB PO SCH (20:35)
[2023-02-13] MEDS: PARoxetine HCL 20 MG TAB PO SCH (20:35)
[2023-02-13] MEDS ORDERED: ROSUVASTATIN CALCIUM 20 MG TAB PO SCH (21:00)
[2023-02-13] MEDS ORDERED: PARoxetine HCL 20 MG TAB PO SCH (21:00)
[2023-02-14] MEDS: HYDROmorphone INJ 0.5 MG/0.5 ML SYR IV PRN ×4 (00:18→20:24)
[2023-02-14] MEDS: SODIUM CHLORIDE 0.9% 1,000 ML IV SCH (00:59)
[2023-02-14] MEDS: oxyCODONE HCL IR 5 MG TAB (IMMEDIATE RELEASE) PO PRN ×2 (06:01→10:13)
--- NOTE | 2023-02-14 07:02 | Hospitalist Progress Note ---
Date of Service February 14, 2023 Assessment & Plan (1) Acute on chronic kidney failure: Plan: Sawyer Coleman is a 72 year-old male with a past medical history of CKD3, alcohol dependence, hx IV drug use in remission, HTN, HLD, anxiety, DM2, prostate cancer, Hx. aflutter, back pain s/p surgical intervention, hx gout sent by cardiology for concern JACK on CKD. JACK on CKD -Baseline creat 2.5, on admit 5.62. Uncertain if this is due to medication changes, cardiorenal syndrome, dehydration- suspect prerenal etiology and possible ATN. No signs obstruction, patient urinating normally -CT A/P: Mild wall thickening of the urinary bladder, mild pericardial calcifications. Ventral abdominal wall hernia with small bowel. No small bowel obstruction at this time. RIGHT sacroiliac arthrodesis. Multilevel lumbosacral fusion hardware. Posterior RIGHT renal cyst measures approximately 2 cm, Diverticulosis, without acute diverticulitis. No free intraperitoneal air. -Nephrology consulted, appreciate recommendations -Continue IV hydration Hyperkalemia -on admit K 5.4, K 4.5 this afternoon -EKG NSR -started on IVF -received Veltassa 8.4g PO and calcium gluconate 1g for cardioprotection -Repeat BMP ordered for tomorrow a.m. Dyspnea on Exertion -echo Jun 2022 normal EF -ordered repeat echo: read is largely unchanged from prior echo Atrial Flutter -metoprolol on hold given hypotension -continue Eliquis at reduced dose given JACK -per patient cardiology had plans to switch to warfarin Hypotension -Likely due to poor PO intake for several weeks -hold diltiazem, lisinopril, metoprolol due to hypotension -Strict I's & O's -Normotensive today Substance Use Disorder (hx alcohol and IV drug use) -drinks 2 large glasses rum, last drink 12 days ago -Blood alcohol level negative Chronic Lumbar back pain -Patient endorses several recent falls at home -XR lumbar and pelvis without acute bony abnormality, T11 screw possibly fractured -No current indications for ortho consult or surgical intervention -Follow up with outpatient ortho spine/Dr. Blank -CK level within normal limits -Chronic oxycodone 5mg at home, increased dose to 10mg given increased pain. -Started Lyrica. Scheduled Tylenol ordered -PT/OT consulted -Will plan for starting OMT outpatient with Dr. Balderas DM2 -Ordered SSI -Hold metformin Anxiety -Continue paroxetine, if renal function does not improve may need to reduce dosage -Has been on chronic diazepam for several years, will resume diazepam 5mg BID FENa: heart healthy, carb consistent, low potassium Code Status: Full DVT PPX: Jenniis PT/OT: ordered (2) Alcohol dependence: (3) 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, type 2: (4) Anxiety: (5) Lumbar back pain: (6) Hypertension: (7) Hyperlipidemia: (8) Prostate cancer: (9) Atrial flutter with rapid ventricular response: Admission and Anticipated Discharge Date Admission Date: February 13, 2023 Supervising Physician Co-Signing Physician Notes I personally examined the patient and verified all guerrero points of history and exam, discussed case, and agree with decision making with Dr Meza ongoing back and neck pain. Chronic. Not really any different than his usual, but his usual is gotten to basically be intolerable. Extensive discussions on this. Vitals noted, in general he is awake and alert pleasant no distress. HEENT normocephalic atraumatic mucous membranes moist. Paraspinal hypertonicitygentle direct myofascial done, patient tolerated well (this was done in the cervical region) neuro without focal deficits. Skin without rashes, pallor, icterus. ARF - Improving fluids, time, appreciate nephro input back pain and neck painsuspect multifactorial. Spinal disease and postop ch anges/scarring certainly are a major contributor, but I will suspect there is a lot of overlying muscle and ligamentous pain, as well as a degree of chronic pain neurophysiology. Discussed this extensively and in depth with patient. Suspect biomechanical component would respond nicely to a prolonged trial of OMTdiscussed that this would probably take a while to make a difference but likely would be of benefit. Discussed what to expect as far as progress. In regards to peripheral nervous system facilitationstarted pregabalin, tolerating well so fartitrate up slowly as an outpatient. Possibly could benefit from additional med management, but obviously this is more of a long process and he already is on significant medications, so I do not want to induce polypharmacy problemsparticularly given that the bulk of the modifiable pain in my experience is much more the muscle sidewe will work on getting him set up for outpatient OMT after discharge otherwise as above, anticoagulated shanelle Rendon Patient seen and examined at bedside. He notes additional back and neck pain. Has been eating and drinking without issue. Review of Systems Review of Systems: As per above Physical Exam Constitutional: WD/WN, vitals as above Eyes: + anicteric sclerae; no conjunctival abnormality ENMT: Ears: no external ear abnormality Nose: no external nose abnormality Respiratory: normal respiratory effort, lungs clear to auscultation Cardiovascular: Rate/Rhythm: + irregularly irregular Gastrointestinal (Abdomen): normal bowel sounds, soft, nontender, no hepatosplenomegaly Skin: no rashes, warm and dry Psychiatric: A+Ox3, euthymic affect Results & Data Results & Data Vital Signs (Past 12 Hours) Vital Signs Temp Pulse Pulse Resp BP BP Pulse Ox 02/14/23 01:48 52 L 02/14/23 01:48 36.5 C 82 18 108/74 96 02/14/23 01:00 54 L 18 109/66 99 02/13/23 23:22 52 L 02/13/23 22:00 54 L 19 98 02/13/23 22:00 97/64 L 02/13/23 20:00 60 19 91 02/13/23 20:00 95/74 L O2 Del Method 02/14/23 01:48 02/14/23 01:48 Room Air 02/14/23 01:00 Room Air 02/13/23 23:22 02/13/23 22:00 02/13/23 22:00 02/13/23 20:00 02/13/23 20:00 Resident Activity Tracking Resident Involvement: Resident Care Provided Care Provided: Adult [facility] Medicine (1) Acute on chronic kidney failure Acute renal failure type: unspecified Chronic kidney disease stage: unspecified stage Qualified Code(s): N17.9 - Acute kidney failure, unspecified; N18.9 - Chronic kidney disease, unspecified (2) Alcohol dependence Substance use status: uncomplicated Qualified Code(s): F10.20 - Alcohol dependence, uncomplicated (3) 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, type 2 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 complication status: without complication 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 terminal clerk insulin use: without terminal clerk use Qualified Code(s): E11.9 - Type 2 diabetes mellitus without complications
[2023-02-14] MEDS ORDERED: SODIUM CHLORIDE 0.9% 1,000 ML IV SCH (07:15)
[2023-02-14 08:34] LABS: Appearance Urine Clear (Clear); Bilirubin Urine Negative (Negative); Blood Urine Negative (Negative); Color Urine Yellow; Glucose Urine UA Negative (Negative); Ketones Urine Negative (Negative); Leukocyte Esterase Urine Negative (Negative); Nitrite Urine Negative (Negative); Protein Urine Negative (Negative); Specific Gravity Urine 1.012 (1.000-1.030); Urobilinogen Urine Negative (Negative)
[2023-02-14] MEDS: INSULIN ASPART PER UNIT CHARGE SC SCH ×4 (08:42→20:31)
[2023-02-14] MEDS: LANTUS PER UNIT CHARGE SQ SCH ×3 (08:43→20:31)
[2023-02-14] MEDS: APIXABAN 5 MG TABLET PO SCH ×2 (09:35→20:31)
[2023-02-14] MEDS: ACETAMINOPHEN 500 MG TAB PO SCH ×3 (09:35→20:32)
[2023-02-14] MEDS: PREGABALIN 75 MG CAP PO SCH ×2 (09:36→20:32)
[2023-02-14 09:40] LABS: Albumin Level 4.3 gm/dl (3.4-5.0); BUN Creatinine Ratio 16.9 (10-20); Creatinine Clr Calc Pharmacy 24.4 ml/min; Est GFR (African American) 19.8 ml/min; Est GFR (Non-African American) 17.1 ml/min; Phosphorus 3.7 mg/dl (2.5-4.9); Potassium 4.7 mmol/L (3.5-5.1)
--- NOTE | 2023-02-14 10:52 | Nephrology Progress Note ---
Date of Service February 14, 2023 Assessment & Plan (1) JACK (acute kidney injury): Plan: Non-oliguric. VF provided for intravascular volume depletion. Electrolytes improved. Creatinine trending down. 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 Clinical history suggestive of prerenal physiology + possible ATN. Etiology not entirely clear but creatinine is improving with intravascular volume expansion. CT demonstrates kidneys to be unobstructed. Urine microscopy is acellular. Repeat metabolic profile this afternoon. Document I/O's. Medications are currently appropriately dosed for kidney function. Lisinopril and metformin held. Rosuvastatin has been dose adjusted from 40 mg daily to 10 mg daily. IVF switched from NSS to 1/2 NaCl + NaHCO3. (2) CKD (chronic kidney disease): Plan: KD stage G3b/A2 attributed to diabetes mellitus type II and hypertension. Followed by Dr. Olivas as outpatient. No emergent indication for STAGE ELECTRICIAN HELPER. (3) Acute hyperkalemia: Plan: Improved with Lokelma. Continue IVF to encourage urine output. Repeat blood work this afternoon. Low potassium diet. No acute EKG changes noted. ACEi held. (4) Cervical stenosis of spinal canal: Plan: Avoid NSAIDS. (5) Hypertension: Plan: Hypotensive on admission. Antihypertensives held. Avoid RAAS blockade given JACK. Admission and Anticipated Discharge Date Admission Date: February 13, 2023 Subjective No acute events overnight. Reports some neck pain this AM. No complaints otherwise. Pain is chronic. Appetite is good. No GI symptoms. No fluid retention or edema. Tolerating IVF. Review of Systems Review of Systems: All systems reviewed & are unremarkable except as noted in HPI & below Physical Exam Constitutional: well developed; no acute distress Eyes: no scleral abnormality and no corneal abnormality ENMT: Mouth: no oral mucosal abnormality and oral mucous membranes not dry Neck: normal visual inspection and trachea midline Respiratory: normal respiratory effort Auscultation: lungs clear to auscultation bilaterally Cardiovascular: Rate/Rhythm: regular rate Heart Sounds: normal S1 and normal S2 Extremities: no edema Musculoskeletal: Extremities: no cyanosis and no clubbing Skin: normal turgor; no lesions Neurologic: Motor/Sensory: no tremor and no asterixis Psychiatric: Orientation: alert and oriented x 3 Results & Data Vital Signs (Past 12 Hours) Vital Signs Temp Pulse Pulse Pulse Resp BP Pulse Ox 02/14/23 07:30 36.4 C L 57 L 16 99/62 L 95 02/14/23 07:29 57 L 02/14/23 01:48 52 L 02/14/23 01:48 36.5 C 82 18 108/74 96 02/14/23 01:00 54 L 18 109/66 99 02/13/23 23:22 52 L O2 Del Method 02/14/23 07:30 Room Air 02/14/23 07:29 02/14/23 01:48 02/14/23 01:48 Room Air 02/14/23 01:00 Room Air 02/13/23 23:22 Laboratory Results Laboratory Results - last 24 hr 02/13/23 02/13/23 02/13/23 12:05 15:31 16:36 Sodium 136 Potassium 4.6 Chloride 110 H Carbon Dioxide 19 L Anion Gap 7 BUN 67 H Creatinine 4.20 H D Est Cr Clr Drug Dosing 19.9 Est GFR ( Amer) 15.5 Est GFR (Non-Af Amer) 13.4 BUN/Creatinine Ratio 16.0 Glucose 104 H POC Glucose 114 H 100 H Calcium 8.9 Phosphorus Albumin Urine Color Urine Appearance Urine pH Ur Specific Makanda Urine Protein Urine Glucose (UA) Urine Ketones Urine Blood Urine Nitrite Urine Bilirubin Urine Urobilinogen Ur Leukocyte Esterase Urine Osmolality Ur Random Creatinine Ur Random Sodium 02/14/23 02/14/23 02/14/23 08:25 08:42 Unknown Sodium 136 Potassium 4.7 Chloride 111 H Carbon Dioxide 20 L Anion Gap 5 BUN 58 H Creatinine 3.43 H D Est Cr Clr Drug Dosing 24.4 Est GFR ( Amer) 19.8 Est GFR (Non-Af Amer) 17.1 BUN/Creatinine Ratio 16.9 Glucose 75 POC Glucose 81 Calcium 9.0 Phosphorus 3.7 Albumin 4.3 Urine Color Yellow Urine Appearance Clear Urine pH 5.0 Ur Specific Makanda 1.012 Urine Protein Negative Urine Glucose (UA) Negative Urine Ketones Negative Urine Blood Negative Urine Nitrite Negative Urine Bilirubin Negative Urine Urobilinogen Negative Ur Leukocyte Esterase Negative Urine Osmolality Ur Random Creatinine Ur Random Sodium 02/14/23 02/14/23 Unknown Unknown Sodium Potassium Chloride Carbon Dioxide Anion Gap BUN Creatinine Est Cr Clr Drug Dosing Est GFR ( Amer) Est GFR (Non-Af Amer) BUN/Creatinine Ratio Glucose POC Glucose Calcium Phosphorus Albumin Urine Color Urine Appearance Urine pH Ur Specific Makanda Urine Protein Urine Glucose (UA) Urine Ketones Urine Blood Urine Nitrite Urine Bilirubin Urine Urobilinogen Ur Leukocyte Esterase Urine Osmolality 426 L Ur Random Creatinine 78.0 Ur Random Sodium 59 PG Care Time/CCT Total # of Minutes Spent Total Time Spent with Patient: Total time spent is greater than 50% in coordination of care (as documented) at patient's floor/unit and/or counseling patient: Coding Level of Care Code 76755 SUB INP/OBS CARE 3/50MIN Diagnoses JACK (acute kidney injury) N17.9 CKD (chronic kidney disease) N18.3 Chronic kidney disease stage: stage 3 (moderate) Acute hyperkalemia E87.5 Cervical stenosis of spinal canal M48.02 Hypertension I10 (2) CKD (chronic kidney disease) Chronic kidney disease stage: stage 3 (moderate) Qualified Code(s): N18.3 - Chronic kidney disease, stage 3 (moderate)
[2023-02-14] MEDS ORDERED: SODIUM BICARBONATE 8.4% 75 MEQ in SODIUM CHLORIDE 0.45 % 1,000 ML IV SCH (11:00)
[2023-02-14 16:45] LABS: Calcium 8.5 mg/dl (8.6-10.3); Creatinine Clr Calc Pharmacy 25.1 ml/min; Est GFR (African American) 20.5 ml/min; Est GFR (Non-African American) 17.7 ml/min; Potassium 4.5 mmol/L (3.5-5.1)
--- NOTE | 2023-02-14 17:07 | Billing Data ---
Date of Service February 14, 2023 Coding Level of Care Code 88433 SUB INP/OBS CARE MIN
[2023-02-14] MEDS: PARoxetine HCL 20 MG TAB PO SCH (20:31)
[2023-02-14] MEDS: ROSUVASTATIN CALCIUM 10 MG TAB PO SCH (20:32)
[2023-02-15] MEDS: oxyCODONE HCL IR 5 MG TAB (IMMEDIATE RELEASE) PO PRN ×2 (01:13→12:02)
[2023-02-15] MEDS: HYDROmorphone INJ 0.5 MG/0.5 ML SYR IV PRN ×2 (02:21→08:04)
--- NOTE | 2023-02-15 07:01 | Hospitalist Progress Note ---
Date of Service February 15, 2023 Assessment & Plan (1) Acute on chronic kidney failure: Plan: Sawyer Coleman is a 72 year-old male with a past medical history of CKD3, alcohol dependence, hx IV drug use in remission, HTN, HLD, anxiety, DM2, prostate cancer, Hx. aflutter, back pain s/p surgical intervention, hx gout sent by cardiology for concern JACK on CKD. JACK on CKD -Baseline creat 2.5, on admit 5.62. Uncertain if this is due to medication changes, cardiorenal syndrome, dehydration- suspect prerenal etiology and possible ATN. No signs obstruction, patient urinating normally -CT A/P: Mild wall thickening of the urinary bladder, mild pericardial calcifications. Ventral abdominal wall hernia with small bowel. No small bowel obstruction at this time. RIGHT sacroiliac arthrodesis. Multilevel lumbosacral fusion hardware. Posterior RIGHT renal cyst measures approximately 2 cm, Diverticulosis, without acute diverticulitis. No free intraperitoneal air. -Nephrology consulted, appreciate recommendations -Continue IV hydration Hyperkalemia -on admit K 5.4, K 4.5 this afternoon -EKG NSR -started on IVF -received V[place] 8.4g PO and calcium gluconate 1g for cardioprotection -Repeat BMP ordered for tomorrow a.m. Dyspnea on Exertion -echo Jun 2022 normal EF -ordered repeat echo: read is largely unchanged from prior echo Atrial Flutter -metoprolol on hold given hypotension -continue Eliquis at reduced dose given JACK -per patient cardiology had plans to switch to warfarin Hypotension -Likely due to poor PO intake for several weeks -hold diltiazem, lisinopril, metoprolol due to hypotension -Strict I's & O's -Normotensive today Substance Use Disorder (hx alcohol and IV drug use) -drinks 2 large glasses rum, last drink 12 days ago -Blood alcohol level negative Chronic Lumbar back pain -Patient endorses several recent falls at home -XR lumbar and pelvis without acute bony abnormality, T11 screw possibly fractured -No current indications for ortho consult or surgical intervention -Follow up with outpatient ortho spine/Dr. Blank -CK level within normal limits -Chronic oxycodone 5mg at home, increased dose to 10mg given increased pain. -Started Lyrica. Scheduled Tylenol ordered -PT/OT consulted -Will plan for starting OMT outpatient with Dr. Balderas DM2 -Ordered SSI -Hold metformin Anxiety -Continue paroxetine, if renal function does not improve may need to reduce dosage -Has been on chronic diazepam for several years, will resume diazepam 5mg BID FENa: heart healthy, carb consistent, low potassium Code Status: Full DVT PPX: Eliquis PT/OT: ordered (2) Alcohol dependence: (3) 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, type 2: (4) Anxiety: (5) Lumbar back pain: (6) Hypertension: (7) Hyperlipidemia: (8) Prostate cancer: (9) Atrial flutter with rapid ventricular response: Admission and Anticipated Discharge Date Admission Date: February 13, 2023 Subjective Patient seen and examined at bedside. No acute events reported overnight. Review of Systems Review of Systems: As per above Physical Exam Constitutional: WD/WN, vitals as above Eyes: + anicteric sclerae; no conjunctival abnormality ENMT: Ears: no external ear abnormality Nose: no external nose abnormality Respiratory: normal respiratory effort, lungs clear to auscultation Cardiovascular: Rate/Rhythm: + irregularly irregular Gastrointestinal (Abdomen): normal bowel sounds, soft, nontender, no hepatosplenomegaly Skin: no rashes, warm and dry Psychiatric: A+Ox3, euthymic affect Results & Data Results & Data Vital Signs (Past 12 Hours) Vital Signs Temp Pulse Pulse Resp BP Pulse Ox O2 Del Method 02/15/23 04:16 36.6 C 61 20 94/57 L 97 Room Air 02/15/23 00:02 58 L 02/14/23 22:00 36.4 C L 60 20 102/67 97 Room Air 02/14/23 19:00 36.5 C 59 L 18 103/65 96 Room Air Resident Activity Tracking Resident Involvement: Resident Care Provided Care Provided: Adult Hospital Medicine (1) Acute on chronic kidney failure Acute renal failure type: unspecified Chronic kidney disease stage: unspecified stage Qualified Code(s): N17.9 - Acute kidney failure, unspecified; N18.9 - Chronic kidney disease, unspecified (2) Alcohol dependence Substance use status: uncomplicated Qualified Code(s): F10.20 - Alcohol dependence, uncomplicated (3) 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, type 2 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 intermission coordinator insulin use: without residential use 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 complication status: without complication Qualified Code(s): E11.9 - Type 2 diabetes mellitus without complications
[2023-02-15 07:14] LABS: Basophils # (auto) 0.05 K/uL (0.00-0.20); Basophils % (auto) 0.7 %; Eosinophils # (auto) 0.27 K/uL (0.00-0.50); Eosinophils % (auto) 3.5 %; Hematocrit (blood only) 34.2 % (42.0-52.0); Hemoglobin 11.5 g/dl (14.0-18.0); Immature Granulocytes # (auto) 0.02 K/uL (0.01-0.20); Immature Granulocytes % (auto) 0.3 %; Lymphocytes % (auto) 23.5 %; Mean Corpuscular Hemoglobin 33.5 pg (25.0-34.0); Mean Corpuscular Hgb Conc 33.6 g/dL (32.0-36.0); Mean Corpuscular Volume 99.7 fL (80.0-100.0); Mean Platelet Volume 10.2 fL (9.4-12.4); Monocytes # (auto) 0.57 K/uL (0.11-0.59); Monocytes % (auto) 7.4 %; Neutrophils # (auto) 4.96 K/uL (1.40-6.50); Neutrophils % (auto) 64.6 %; Platelet Count 186 K/uL (130-400); RDW Standard Deviation 47.7 fL (36.4-46.3); Red Blood Count 3.43 M/uL (4.70-6.10); White Blood Count 7.67 K/ul (4.8-10.8)
[2023-02-15 07:41] LABS: BUN Creatinine Ratio 17.1 (10-20); Calcium 8.7 mg/dl (8.6-10.3); Creatinine Clr Calc Pharmacy 28.9 ml/min; Est GFR (Non-African American) 20.7 ml/min; Phosphorus 3.4 mg/dl (2.5-4.9)
[2023-02-15] MEDS: ACETAMINOPHEN 500 MG TAB PO SCH ×2 (08:04→13:37)
[2023-02-15] MEDS: APIXABAN 5 MG TABLET PO SCH (08:04)
[2023-02-15] MEDS: PREGABALIN 75 MG CAP PO SCH (08:04)
[2023-02-15] MEDS ORDERED: POLYETHYLENE (MIRALAX) 17 GM PACK PO ONE (09:24)
[2023-02-15] MEDS: INSULIN ASPART PER UNIT CHARGE SC SCH ×2 (09:51→13:27)
[2023-02-15] MEDS: LANTUS PER UNIT CHARGE SQ SCH (10:06)
--- NOTE | 2023-02-15 10:25 | Nephrology Progress Note ---
Date of Service February 15, 2023 Assessment & Plan (1) JACK (acute kidney injury): Plan: Non-oliguric. Creatinine improved to 2.9 mg/dL. Volume status acceptable. Good urine output. Electrolytes acceptable. Potassium slightly high. There is no emergent indication for CITY AUDITOR. IVF have been discontinued and creatinine continues to improve. Adequate PO intake. Clinical history suggestive of prerenal physiology + possible ATN. Etiology not entirely clear but creatinine is improving with intravascular volume expansion. CT demonstrates kidneys to be unobstructed. Urine microscopy is acellular. No additional recommendations from nephrology at this time. I will sign off. Please check blood work early next week. Schedule outpatient follow up with Dr. Olivas within 1-2 weeks of discharge. Continue to hold lisinopril and metformin pending outpatient follow up. Rosuvastatin has been dose adjusted from 40 mg daily to 10 mg daily. (2) CKD (chronic kidney disease): Plan: KD stage G3b/A2 attributed to diabetes mellitus type II and hypertension. Followed by Dr. Olivas as outpatient. No emergent indication for CITY AUDITOR. Close outpatient follow up will be required after discharge. (3) Acute hyperkalemia: Plan: Low potassium diet. ACEi held. At discharge, an Rx for Lokelma to be kept at home will be provided, in case of future hyperkalemia noted on outpatient follow up. It would be reasonable to continue K binder a couple of times weekly empirically. (4) Cervical stenosis of spinal canal: Plan: Avoid NSAIDS. Management deferred to hospitalist team. (5) Hypertension: Plan: Avoid RAAS blockade given JACK. Admission and Anticipated Discharge Date Admission Date: February 13, 2023 Subjective No acute events overnight. Appetite is good. No GI symptoms reported. Excellent urine output. Unfortunately, Sawyer expressed concerns related to chronic neck and right shoulder pain. He notes that symptoms have a tendency to flare and he is experiencing a flare of symptoms since admission to hospital. He is worried that the symptoms may require additional evaluation or that they may affect his ability to perform ADLs if he were to return home. He describes radicular pain into the right arm. He has experienced this symptom in the past but it can be difficult to manage. He denies fluid retention or edema. He denies any recent injury or trauma. Review of Systems Review of Systems: All systems reviewed & are unremarkable except as noted in HPI & below Physical Exam Constitutional: well developed; no acute distress Eyes: no scleral abnormality and no corneal abnormality ENMT: Mouth: no oral mucosal abnormality and oral mucous membranes not dry Neck: normal visual inspection and trachea midline Respiratory: normal respiratory effort Auscultation: lungs clear to auscultation bilaterally Cardiovascular: Rate/Rhythm: regular rate Heart Sounds: normal S1 and normal S2 Extremities: no edema Musculoskeletal: Extremities: no cyanosis and no clubbing Skin: normal turgor; no lesions Neurologic: Motor/Sensory: no tremor and no asterixis Psychiatric: Orientation: alert and oriented x 3 Results & Data Vital Signs (Past 12 Hours) Vital Signs Temp Pulse Pulse Resp BP Pulse Ox O2 Del Method 02/15/23 08:09 66 02/15/23 08:06 36.6 C 62 18 112/73 98 Room Air 02/15/23 04:16 36.6 C 61 20 94/57 L 97 Room Air 02/15/23 00:02 58 L Laboratory Results Laboratory Results - last 24 hr 02/14/23 02/14/23 02/14/23 12:22 15:52 17:25 WBC RBC Hgb Hct MCV MCH MCHC RDW Std Deviation RDW Coeff of Diana Plt Count MPV Immature Gran % (Auto) Neut % (Auto) Lymph % (Auto) Bennett % (Auto) Eos % (Auto) Baso % (Auto) Neut # (Auto) Lymph # (Auto) Bennett # (Auto) Eos # (Auto) Baso # (Auto) Immature Gran # (Auto) Sodium 135 L Potassium 4.5 Chloride 110 H Carbon Dioxide 22 Anion Gap 3 BUN 50 H Creatinine 3.33 H Est Cr Clr Drug Dosing 25.1 Est GFR ( Amer) 20.5 Est GFR (Non-Af Amer) 17.7 BUN/Creatinine Ratio 15.0 Glucose 85 POC Glucose 99 97 Calcium 8.5 L Phosphorus Albumin 02/14/23 02/15/23 02/15/23 20:24 05:56 05:56 WBC 7.67 RBC 3.43 L Hgb 11.5 L Hct 34.2 L MCV 99.7 MCH 33.5 MCHC 33.6 RDW Std Deviation 47.7 H RDW Coeff of Diana 13.0 Plt Count 186 MPV 10.2 Immature Gran % (Auto) 0.3 Neut % (Auto) 64.6 Lymph % (Auto) 23.5 Bennett % (Auto) 7.4 Eos % (Auto) 3.5 Baso % (Auto) 0.7 Neut # (Auto) 4.96 Lymph # (Auto) 1.80 Bennett # (Auto) 0.57 Eos # (Auto) 0.27 Baso # (Auto) 0.05 Immature Gran # (Auto) 0.02 Sodium 136 Potassium 5.0 Chloride 106 Carbon Dioxide 25 Anion Gap 5 BUN 50 H Creatinine 2.93 H D Est Cr Clr Drug Dosing 28.9 Est GFR ( Amer) 24.0 Est GFR (Non-Af Amer) 20.7 BUN/Creatinine Ratio 17.1 Glucose 125 H POC Glucose 108 H Calcium 8.7 Phosphorus 3.4 Albumin 4.0 02/15/23 07:50 WBC RBC Hgb Hct MCV MCH MCHC RDW Std Deviation RDW Coeff of Diana Plt Count MPV Immature Gran % (Auto) Neut % (Auto) Lymph % (Auto) Bennett % (Auto) Eos % (Auto) Baso % (Auto) Neut # (Auto) Lymph # (Auto) Bennett # (Auto) Eos # (Auto) Baso # (Auto) Immature Gran # (Auto) Sodium Potassium Chloride Carbon Dioxide Anion Gap BUN Creatinine Est Cr Clr Drug Dosing Est GFR ( Amer) Est GFR (Non-Af Amer) BUN/Creatinine Ratio Glucose POC Glucose 96 Calcium Phosphorus Albumin PG Care Time/CCT Total # of Minutes Spent Total Time Spent with Patient: Total time spent is greater than 50% in coordination of care (as documented) at patient's floor/unit and/or counseling patient: Coding Level of Care Code 39053 SUB INP/OBS CARE 3/50MIN Diagnoses JACK (acute kidney injury) N17.9 CKD (chronic kidney disease) N18.3 Chronic kidney disease stage: stage 3 (moderate) Acute hyperkalemia E87.5 Cervical stenosis of spinal canal M48.02 Hypertension I10 (2) CKD (chronic kidney disease) Chronic kidney disease stage: stage 3 (moderate) Qualified Code(s): N18.3 - Chronic kidney disease, stage 3 (moderate)
--- NOTE | 2023-02-15 10:51 | XRay Report ---
XR cervical spine 2 or 3V HISTORY: 72 years-old Male worsening chronic neck pain COMPARISON: 05/19/2018 MRI TECHNIQUE: 3 views of the cervical spine FINDINGS: Anterior plate and screw fusion with discectomy at C5-C6. Hardware appears intact. Moderate multileve l facet arthrosis with mild to moderate intervertebral disc space narrowing and spondylotic spurring. No acute fracture, subluxation or endplate erosion. Lung apices are clear. Prevertebral soft tissues are unremarkable. Calcified plaque of the left carot id bulb. IMPRESSION: 1. No acute fracture or subluxation. 2. Degenerative and postoperative changes as above. ACT 112: Negative or not required by law. The above report was generated using voice recognition software. It may contain grammatical, syntax o r spelling errors. Electronically signed by: Brooks Cedillo M.D. 02/15/2023 10:50 AM
[2023-02-15] MEDS ORDERED: POLYETHYLENE (MIRALAX) 17 GM PACK PO SCH (14:00)
--- NOTE | 2023-02-15 14:09 | Discharge Summary ---
Date of Service February 15, 2023 Admission HPI Per Admitting Provider 72yo Male with PMH CKD3, alcohol dependence, HTN, HLD, anxiety, DM2, prostate cancer, Hx. aflutter, back pain s/p surgical intervention, hx gout sent by cardiology for concern JACK on CKD. Patient states he had a cardiology f/u appt today after starting metoprolol and eliquis for hx aflutter, after starting the medication states he did not feel well noted feeling tired fatigued low appetite. States cardiology was planning to switch him to warfarin, wanted baseline labs first. Office creat was 4.96 with K 5.1, they called police to find patient to bring him to hospital. At this time patient denies any SOB at rest swelling in extremities, states he has been urinating normally with slight strain. He describes occasional nausea, occasional swelling in abd in morning that improves in afternoon. Patient states he has significant BECKHAM states standing to shower for a few minutes makes him short of breath. He denies any history [place] CHF stroke, denies other recent medication changes. Patient states he usually drinks 2 large glasses of rum at a time, last drink 12 days ago. Patient aware of need for hospital stay and evaluation. 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 Admission Exam Per Admitting Provider Constitutional: well developed, well nourished, cooperative and comfortable Eyes: PERRL, conjunctivae normal, anicteric sclerae ENMT: external ear and nose normal, oropharynx normal Neck: trachea midline, no thyromegaly Respiratory: normal respiratory effort, lungs clear to auscultation Cardiovascular: Rate/Rhythm: regular rate and regular rhythm Extremities: no edema Gastrointestinal (Abdomen): Inspection/Auscultation: abdomen normal to inspection Percussion/Palpation: abdomen soft; abdomen nontender Skin: no rashes, warm and dry Principal Diagnosis JACK on CKD Discharge Exam Constitutional WD/WN, vitals as above Eyes + anicteric sclerae; no conjunctival abnormality ENMT Ears: no external ear abnormality Nose: no external nose abnormality Moist mucous membranes Respiratory normal respiratory effort, lungs clear to auscultation Cardiovascular Rate/Rhythm: + irregularly irregular No significant lower extremity edema Gastrointestinal (Abdomen) Abdomen soft, nontender and nondistended Musculoskeletal Moves limbs independently Skin no rashes, warm and dry Psychiatric A+Ox3, euthymic affect Discharge Data Allergies Allergy/AdvReac Type Severity Reaction Status Date / Time house dust Allergy Unknown congestion,difficulty Verified 02/12/23 22:08 breathing- receives allergy shots mold Allergy Unknown nasal Verified 02/12/23 22:08 congestion, difficulty breathing Penicillins Allergy Unknown rash, hives Verified 02/12/23 22:08 Consultations 02/12/23 21:53 ED Decision to Admit Stat 02/13/23 02:33 Consult Nephrology Routine Ordered Studies 02/12/23 21:06 CT abd pelvis wo con Stat Chest X-Ray 02/12/23 19:30 XR chest 1V portable CLINICAL HISTORY: Chest pain, nonspecific. COMPARISON STUDY: Chest CT June 27, 2022. Chest radiograph June 30, 2022. FINDINGS: Anterior cervical spine fusion is incidentally noted. Lung volumes are normal. Lungs are clear. There is no pneumothorax or pleural effusion. Cardiac size is stable. Mediastinal contours are normal. There is no evidence for pulmonary edema. IMPRESSION: No acute cardiopulmonary findings. ACT 112: Negative or not required by law. Electronically signed by: Issac Vu M.D. 02/13/2023 7:06 AM Abdomen/Pelvis CT 02/12/23 21:06 Exam(s): CT ABDOMEN + PELVIS Without Contrast EXAM: CT Abdomen and Pelvis Without Intravenous Contrast CLINICAL HISTORY: Reason for exam: Acute renal failure. TECHNIQUE: Axial computed tomography images of the abdomen and pelvis without intravenous contrast. CTDI is 27.03 mGy and DLP is 1272.35 mGy-cm. Automated exposure control was utilized for the study. A dose lowering technique was utilized adhering to the principles of ALARA. COMPARISON: CT of the pelvis June 27, 2022 FINDINGS: Lung bases: Unremarkable. No mass. No consolidation. Heart: Mild pericardial calcifications. ABDOMEN: Liver: Unremarkable. Gallbladder and bile ducts: Unremarkable. No calcified stones. No ductal dilation. Pancreas: Unremarkable. No ductal dilation. Spleen: Unremarkable. No splenomegaly. Adrenals: Unremarkable. No mass. Kidneys and ureters: Posterior RIGHT renal cyst measures approximately 2 cm, better identified on contrast exam from June 27, 2022. No obstructing stones. No hydronephrosis. Stomach and bowel: Ventral abdominal wall hernia, which contains a single, small to small bowel. No small bowel obstruction at this time. This may be manually reducible. Diverticulosis, without acute diverticulitis. No small bowel obstruction. No free intraperitoneal air. PELVIS: Appendix: No findings to suggest acute appendicitis. Bladder: Mild wall thickening of the urinary bladder, correlate for UTI. Decompressed urinary bladder. No stones. Reproductive: Unremarkable as visualized. ABDOMEN and PELVIS: Intraperitoneal space: Unremarkable. No free air. No significant fluid collection. Bones/joints: Degenerative changes of the spine. RIGHT sacroiliac arthrodesis. Multilevel lumbosacral fusion hardware. No acute fracture. No dislocation. Soft tissues: See above. Vasculature: Atherosclerotic changes of the aorta. No abdominal aortic aneurysm. Lymph nodes: Unremarkable. No enlarged lymph nodes. IMPRESSION: 1. Mild wall thickening of the urinary bladder, correlate for UTI. 2. Mild pericardial calcifications. 3. Ventral abdominal wall hernia, which contains a single, small to small bowel. No small bowel obstruction at this time. This may be manually reducible. 4. RIGHT sacroiliac arthrodesis. Multilevel lumbosacral fusion hardware. 5. Posterior RIGHT renal cyst measures approximately 2 cm, better identified on contrast exam from June 27, 2022. 6. Diverticulosis, without acute diverticulitis. No small bowel obstruction. No free intraperitoneal air. Electronically signed by: Ronnie Galeano MD 02/12/23 22:48 PM Hip/Pelvis X-Ray 02/13/23 00:57 XR hip JESUS 2v w pelvis CLINICAL HISTORY: Fall COMPARISON STUDY: CT of the abdomen and pelvis February 12, 2023. FINDINGS: Postoperative findings within the spine are partially imaged. There is a right SI joint fusion. No acute fracture within the pelvis or hips is identified. Degenerative changes at the symphysis pubis are incidentally noted. IMPRESSION: No acute fracture within the pelvis or hips. ACT 112: Negative or not required by law. Electronically signed by: Issac Vu M.D. 02/13/2023 7:24 AM Lumbar Spine X-Ray 02/13/23 00:57 XR lumbar spine 2-3V CLINICAL HISTORY: falls COMPARISON STUDY: Lumbar spine CT March 22, 2019. Lumbar spine radiographs July 01, 2018. FINDINGS: Multilevel decompression and fusion is noted. Fusion extends from T11 through S1. One of the T11 screws, likely the left screw, is fractured. Otherwise, hardware is intact. No acute lumbar spine fracture is present. L1-L2, L2-L3, L4-L5 and L5-S1 discectomies are noted. There is a right SI joint fusion. IMPRESSION: 1. No acute lumbar spine fracture or subluxation. 2. Status post multilevel spine decompression, fusion and discectomy. Fusion extends from T11 through S1. One of the T11 screws, likely the left screw, is fractured. Otherwise, hardware intact. Right SI joint fusion. ACT 112: Negative or not required by law. Electronically signed by: Issac Vu M.D. 02/13/2023 7:04 AM Cervical Spine X-Ray 02/15/23 09:30 XR cervical spine 2 or 3V HISTORY: 72 years-old Male worsening chronic neck pain COMPARISON: 05/19/2018 MRI TECHNIQUE: 3 views of the cervical spine FINDINGS: Anterior plate and screw fusion with discectomy at C5-C6. Hardware appears intact. Moderate multilevel facet arthrosis with mild to moderate intervertebral disc space narrowing and spondylotic spurring. No acute fracture, subluxation or endplate erosion. Lung apices are clear. Prevertebral soft tissues are unremarkable. Calcified plaque of the left carotid bulb. IMPRESSION: 1. No acute fracture or subluxation. 2. Degenerative and postoperative changes as above. ACT 112: Negative or not required by law. The above report was generated using voice recognition software. It may contain grammatical, syntax or spelling errors. Electronically signed by: Brooks Cedillo M.D. 02/15/2023 10:50 AM Hospital Course (1) Acute on chronic kidney failure: (2) Alcohol dependence: (3) 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, type 2: (4) Anxiety: (5) Lumbar back pain: (6) Hypertension: (7) Hyperlipidemia: (8) Prostate cancer: (9) Atrial flutter with rapid ventricular response: Plan Sawyer Coleman is a 72 year-old male with a past medical history of CKD3, alcohol dependence, hx IV drug use in remission, HTN, HLD, anxiety, DM2, prostat e cancer, Hx. aflutter, back pain s/p surgical intervention, hx gout sent by cardiology for concern JACK on CKD. JACK on CKD -Baseline creat 2.5, on admit 5.62. Uncertain if this is due to medication changes, cardiorenal syndrome, dehydration- suspect prerenal etiology and possible ATN. No signs obstruction, patient urinating normally -CT A/P: Mild wall thickening of the urinary bladder, mild pericardial calcifications. Ventral abdominal wall hernia with small bowel. No small bowel obstruction at this time. RIGHT sacroiliac arthrodesis. Multilevel lumbosacral fusion hardware. Posterior RIGHT renal cyst measures approximately 2 cm, Diverticulosis, without acute diverticulitis. No free intraperitoneal air. Nephrology consulted: IV fluids continued and creatinine improved to <3 at time of discharge. Patient to repeat BMP next week and follow up with Dr. Olivas within 1-2 weeks. Hyperkalemia On admit K 5.4, EKG NSR. Received IV fluids, [place], calcium gluconate. Continue low potassium diet and repeat BMP early next week after discharge. Dyspnea on Exertion Echo Jun 2022 normal EF. ordered repeat echo: read is largely unchanged from prior echo Atrial Flutter Continue home metoprolol, eliquis. Per patient cardiology had plans to switch to warfarin. Will defer to outpatient cardiology for further modifications. Hypotension Likely due to poor PO intake for several weeks. Continue home diltiazem, lisinopril, metoprolol due to hypotension. Encouraged increased PO intake, aim for 60-80 ounces of liquids daily Substance Use Disorder (hx alcohol and IV drug use) Drinks 2 large glasses rum, last drink 12 days ago. Blood alcohol level negative Chronic Lumbar back and cervical spine pain Patient endorses several recent falls at home. XR lumbar and pelvis without acute bony abnormality, T11 screw possibly fracture: No current indications for ortho consult or surgical intervention, follow up with outpatient ortho spine/Dr. Blank. XR c-spine without acute change. Started Lyrica 75 BID during this admission, prescription sent. Will plan for starting OMT outpatient with Dr. Balderas. Encouraged daily exercise of at least 20 minutes. Sent new prescription for PO Dilaudid, had extensive conversation with patient about short term vs [facility] pain control and goals. DM2 Hold metformin for now until you kidney function is back to normal Anxiety Continue paroxetine and chronic diazepam Total Time Total Time Spent Total Time Spent (In Minutes): >30 Discharge Plan Discharge Items Patient Disposition: Home - Self-Care Reason For Visit: JACK ON CKD Discharge Diagnosis: renal failure improving Activity: Resume your previous activity Non-emergency contact: Primary Care Provider and Director Of Music Call non-emergency contact if: you have any medication questions and your symptoms worsen Follow-up/Referrals: Beka Olivas MD [Physician] - 02/22/23 1:00 pm (Nephrology follow up) Nithya Foster [Primary Care Provider] - 02/25/23 2:05 pm (THIS APPOINTMENT WILL BE WITH DR. DELEON) Diet: Low Sodium (2gm) Addtl Attending Provider Instructions: Renal Failure -Fortunately your kidney numbers are improving nicely. It is safe to get you home. - Your creatinine was as high as almost 6, and has now come down to 2.93. It looks like your baseline is more in the 1.52.5 range, so there is still likely to be more improvement to come, but with the rate of change that we have seen in the right direction it is safe to follow this as an outpatient - stay well-hydrateddrink a minimum of 60 ounces of fluid a day with a goal of 6080 - avoid anti-inflammatories - alcohol can be dehydrating, so if you have any alcohol, I would probably at least make up for it with as many ounces of nonalcoholic liquid to make sure that you do not have more of a dehydration picture follow - have follow-up lab work ([facility] metabolic panel)checked early next week (Saturday, Saturday) with results to Dr. Greco and Dr. Foster\\ - while in the long-term, we would want you back on the metformin, when kidney numbers are elevated it can be hard for her kidneys to process. To that end, while you are medication list says to keep taking the metformin, I would recommend holding off on it until your kidney numbers are back to your normal back pain - as we discussed, back pain like yours is often misunderstood and looked at purely as the bone and disc problems. I have definitely found people have much better improvement in pain and much better quality of life if we look at the whole thing is much more multifactorialwhere the bone/disc disease has essentially "started the fire" but the secondary muscle/ligament pain and spin off nerve facilitation pain can really be as much of a problem as the bone and disc disease itself. This becomes a fairly successful plan of approach for a majority of people (obviously not everyone, but as we have been discussing, in my experience probably 80% of patients get enough of a benefit from this approach that it is worth there while in terms of improved pain and improved quality of life). Bone/discgenerally speaking, while the distorted anatomy ends up being the "root cause" it is also often the least successful part of this to treat, because there is not a lot that were able to do this wildly successful unless somebody reaches a point where they require another surgeryand as we discussed there, really the only time someone could have a high probability of success after surgery tends to be when there are true radicular symptoms (pinched nerve symptoms that can be tracked along a dermatome). To that end, I tend to phi losophically look at the bone/disc part of the pain is much more of a "constant" and the rest of the picture is the variables that we can get benefit going after, simply because the risk/benefits/yield for improved pain and quality of life is much better with the other aspects of the pain. However, its not to say that there is "nothing we can do" to help alleviate some of the bone/disc painit is just the treatment is more hit or miss, more side effect riddled, and less long-term successful for this part of the pain - since you have noticed temporary pain relief with the Dilaudid (hydromorphone) far more than you are getting from the oxycodone you have at home, I discussed with Dr. Foster, and he is okay with assuming prescriptions moving forward, that for the short-term we will change your oxycodone over to oral hydromorphone instead. It is about a 4:1 ratio of IV to oralwhich is why I sent a prescription for 2 mg tablets even though you were getting only 0.5 mg IVthe goal being to get an equivalent dose when you are home. It goes without saying, but obviously put the oxycodone at the back of the shelf so that you do not accidentally take both and risk and overdose situation. This will not really do anything to have a long-term benefit with your pain, but the idea will be that everything else that we can do to help with long-term pain control will take a while to take effect, so escalating her narcotic pain relief for the short-term can at least by a little "breathing room" while the big picture plan has time to take effect. Like we discussed, while it is a bit of an arbitrary "line in the sand" we probably should look at something around groundhog day as the "finish line" for the escalation of narcotics, simply because long-term escalation tends to lead to tolerance, and then the doses less effective, and eventually we reached a point where our tolerance for the medicine exceeds its ability to be effective, and we are taking a pill with no real relief except that we miss it when we do not take it (like what seems to be happening with the oxycodone now). - Otherwise for the bone/disc pain, while you will never really notice pain relief for any individual dose of Tylenol, I would recommend at least for a week or 2 that you try taking some semblance of [id number] Tylenol to see if it potentiates the effectiveness of the Dilaudid. This does not happen with every 1, but sometimes we get a bit of "2+2 = 5" synergy with Tylenol plus a narcotic. Because its not everyone, what I would do is try taking the Tylenol for a week or 2 with the Dilaudid on top of it, and simply taking the Dilaudid for a week or 2 without the Tylenol to see if it does help more by additive effect, and to save you from taking a pill if its not helping at all - once your kidney numbers are back to baseline, and once Dr. Greco with the note safe to tryI would recommend utilizing topical diclofenac. This might be a lot harder to put on your back, but you could definitely put it on your neck. What I find with topical diclofenac, is that while it never works at "any when people use it one dose", when people use it 34 times a day routinely, it does often tend to make a dent in arthritic pain. It will also help with the muscle/ligament pain, so it does "pull double duty" and is definitely worthwhile trying. It has very little whole-body absorption, so once your kidney numbers are back to baseline, it should be safe to try but since you have a degree of baseline kidney impairment, we will have to remember that there is at least a little bit of whole-body absorption (hence why we want to make sure Dr. Greco gives us his opinion first). it comes as an [id number], there is a patch that is much easier to use because you just put it on and leave it on (instead of the gel that you have to apply 34 times every day for days on and), but often times because the gel is endt-xtj-bwlkfsc and generic, coverage for the patch can be difficult - Pain psychology:while this is a treatment modality is much for the whole approach to chronic pain, given that the bone/disc pain has the most MU tubal quality to it, I have put pain psychology in this section. As we discussed, having watched the GI psychologist work with my oldest daughter whenever she had a neuropathic chronic abdominal pain, it was fascinating how essentially the treatment modality made to reveal the old philosophical saying "the difference between pain and suffering is the struggle". I am not aware of any clinical psychologists locally that specifically do pain psychology, although there might be. [facility] (the psychology clinic on [facility] does biofeedback which is different, but can be helpful; and I do believe that [facility] has pain psychology in [facility] possibly after 1 visit tttr-db-byts they might be able to do the rest remotely. Muscle/ligament- while the bone and disc disease ends up being the underlying driving factor that creates muscle and ligament tightness/pain, treating the muscle/ligament pain tends to be higher yield and more successful in making a dent in the overall burden of pain, and also even times where someone successfully has the bone/disc disease corrected (someone who has a narrow focused surgical problem that can be "fixed") oftentimes fixing the bone and disc problems do not fix the overlying muscle ligament problems. Those are 2 different ways of saying the same thingthat we are likely to get you a pretty significant benefit in your pain and quality of life by specifically addressing the muscle/ligamentous tightness - there are many different ways that we can go about this, in my experience (whenever I was in the office) generally speaking the most successful overall would be a steady treatment of OMT (osteopathic manipulative therapy)essentially what that amounts to is that a DO physician who does a lot of OMT will work on the muscles and ligaments that are surrounding the distorted bony anatomypredominantly for you this will be your cervical, thoracic, and lumbar paraspinals; I am also highly suspicious that your pelvic stabilizer muscles are involved as well. Manipulative medicine is more or less "neuromuscular tricks" to try to get the muscles to settle back to a more appropriate resting length. This often takes a while to "take hold" because muscles will often have an aberrant "muscle memory"remember the analogy that we used about how long it would take to develop muscle memory hitting a slap shot at the ice rink. [address] Foster[address] partners (Dr. Balderas) As well as several of his DO residents are quite good at [facility] I think compared to a lot of other patients, it should be fairly easy to keep you pipeline with someone working on the muscles. Because of how intense the pain is and how chronic it has been, like we have been discussing, I do suspect it will probably take several months (set your sites on Easter) to really start to notice an improvementand they will probably have to work on you at least several times a month to keep working towards a more positive muscle memory. Sometimes things can get a little worse before they get better, sometimes people do not feel a whole lot of a benefit at first, but be patient and keep working with thembecause most of the time what I saw as treatment failures were not really that we tried and it did not work; but rather, that people quit trying before it ever had a realistic chance to be a benefit - similar to above with the Voltaren gel, (diclofenac gel), it can also be helpful for the muscle painso when/if Dr. Greco gives you the greenlight to be on the started, while you will be putting it in the same place, it will hopefully be helping with both of these portions of the pain - while the diazepam (Valium) that you are on, in my experience, is the best pharmacologic muscle relaxant that we have, good blood flow tends to be an even better muscle relaxant than anything we can do pharmacologically. (When you look at muscle physiology, it takes a energy for the muscle to relax after a contractionand so getting good blood flow tends to help keep a muscle that a better/overall more relaxed state). Moist heat can help bring in blood flowso I would definitely try heating pads/hot showers/tubs. At the same time, light cardiovascular exercise (anything that gets your heart rate up and get your breathing up) is really better for blood flow than anything elseand so while there are certain limitations, I would definitely think it is worth your while to try to find some sort of exercise that you can do regularly (at least several days a week) that gets your heart rate up for at least 20 minutes at a time. This will help improve blood flow to the tight, chronically spastic muscles and help them relax better overall nerve facilitationanyone with chronic pain will start to have their nerves tripped more into a state where they carry pain as the "normal day" sensation. the best analogy would be thinking of somebody who has phantom limb painthey no longer have a "somatic focus" to generate the painbut they still often will feel pain from the foot they no longer havethis is because the nerves that carry pain essentially start to carry pain is a "new normal" and the part of her brain that since this pain starts to interpret pain is a "new normal". We have started the Lyrica (pregabalin to try to help make a dent in the peripheral nerve carrying of painyou are on a fairly low-doseobviously we need to pay attention to dosing as it relates to your kidney functionbut also it takes about a month for any dose of Lyrica to truly take effectso for now will sit at the 75 mg twice a day and has a follow-up in the office Dr. Foster can adjust the dose up if it seems like it is helping, but not enough. Similarly, but further up the nervous system, and adjustment from paroxetine to an SNRI (such as duloxetine), or a tricyclic (such as amitriptyline) can also be more pain modifyingbut given that were making several other medication changes, it is better to make these types of changes 1 at a time rather than risking a lot of potential side effects and not knowing where it came from. Pending Studies at Discharge: No Stand-Alone Forms: My [facility], Smoking Cessation Medications and DC Order Prescriptions: New pregabalin [Lyrica] 75 mg Capsule 75 mg PO BID Qty: 60 0RF hydromorphone 2 mg tablet 2 mg PO TID PRN (Reason: pain) Qty: 60 0RF Rx Instructions: stop oxycodone, replace w hydromorphone Continued multivitamin Tablet 1 tab PO HS metformin 500 mg Tablet 500 mg PO HS paroxetine HCl [Paxil] 40 mg tablet 40 mg PO HS lisinopril [Zestril] 20 mg tablet 20 mg PO HS paroxetine HCl 20 mg tablet 20 mg PO HS rosuvastatin 40 mg tablet 40 mg PO HS diltiazem HCl 30 mg tablet 30 mg PO BID diazepam 5 mg tablet 5 mg PO BID metoprolol succinate 25 mg tablet extended release 24 hr 25 mg PO HS cholecalciferol (vitamin D3) [Vitamin D3] 25 mcg (1,000 unit) Tablet 25 mcg PO HS Eliquis 5 mg Tablet 5 mg PO BID 30 Days Qty: 60 1RF Discontinued oxycodone 5 mg tablet 5 mg PO TID PRN (Reason: Pain) Discharge Orders: Discharge Order (Routine); Ordered 02/15/23 Ordered By: Francis Mera Admission Data Admit Date/Time: 02/13/23 00:57 Attending Provider: Francis Mera Admit Provider: Pavithra Burns Primary Care Provider: Nithya Foster Other Providers: Ian Menendez ; Giovanni Grceo Other Interventions: Discharge Summary Assessment (RN) Last Done: 02/15/23 14:18 Supervising Physician Co-Signing Physician Notes I personally examined the patient and verified all guerrero points of history and exam, discussed case, and agree with decision making with Dr Meza Renal function improvingnephrology feels okay to go home. Extensive discussions about back pain and short-term/long-term planning's, coordinated with PCP as well. Vitals noted, in general he is awake and alert pleasant no distress. HEENT normocephalic atraumatic mucous membranes moist. Skin without rashes, pallor, icterus. ARF - Improvingsafe for home, p.o. fluid intake. Basic metabolic panel next week. back pain and neck painsuspect multifactorial. Spinal disease and postop changes/scarring certainly are a major contributor, but I will suspect there is a lot of overlying muscle and ligamentous pain, as well as a degree of chronic pain neurophysiology. Discussed this extensively and in depth with patient. Suspect biomechanical component would respond nicely to a prolonged trial of OMTdiscussed that this would probably take a while to make a difference but likely would be of benefit. Discussed what to expect as far as progress. In regards to peripheral nervous system facilitationstarted pregabalin, tolerating well so fartitrate up slowly as an outpatient. Possibly could benefit from additional med management, but obviously this is more of a long process and he already is on significant medications, so I do not want to induce polypharmacy problemsparticularly given that the bulk of the modifiable pain in my experience is much more the muscle sidewe will work on getting him set up for outpatient OMT after discharge. See extensive discharge instructions as well. otherwise as above, anticoagulated shanelle mistry
--- NOTE | 2023-02-15 17:28 | Billing Data ---
Date of Service February 15, 2023 Coding Level of Care Code 00893 INP/OBS DISCH >30 MIN
== END 2023-02-15 15:07 | disposition home or self-care (01) | DRG 683 ==
LOC: ED 19:07 → EDINP 02-13 00:57 → SUATTDRO 02-13 00:57 → 2N 02-14 01:39

== ENCOUNTER 2023-04-22 17:11 | Observation (INO) ==
--- NOTE | 2023-04-22 17:55 | ED Triage Note ---
Date of Service April 22, 2023 Provider in Triage Author: Catie Humphrey History of Present Illness This patient was briefly evaluated while in triage. An abbreviated physical exam was performed. This patient is a 73-year-old Male who presents to the ED for evaluation of back pain radiating into the left knee. No known injury or trauma to his back or knee. Now having a lot of pain and swelling into the left knee for the past week. Has constant pain of his lower back as well. Has had 4 previous back surgeries. Physical Exam GENERAL: Non-toxic and in no acute distress. HEENT: Pupils equal. No obvious scleral icterus. HEART: Regular rate and rhythm. LUNGS: Clear to auscultation. No accessory muscle use. ABDOMEN: Soft, nontender to palpation. NEURO: Alert and oriented. No obvious neurological deficits on quick neuro exam. MUSCULOSKELETAL: Tender to palpation over the lumbar spine and left-sided paraspinal muscles. Tender to palpation over the left knee and left thigh. Mild edema of the left knee and left thigh compared to the right Initial orders for labs and / or imaging were placed and patient was placed in the waiting area until a bed is available. Please see further documentation for the full ED course. MDM / Impression Impression Impression: Ambulatory dysfunction
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
[2023-04-22] MEDS ORDERED: HYDROmorphone INJ 0.5 MG/0.5 ML SYR IV STA ×2 (18:41→20:13)
--- NOTE | 2023-04-22 18:46 | XRay Report ---
XR knee LT 3V CLINICAL HISTORY: Knee pain TECHNIQUE: 3 views of the left knee were obtained. Comparison: Comparison is made to left knee radiograph 12/30/2015 FINDINGS: There is no evidence of an acute fracture. Osteophyte formation is seen most prominently on the [place]cwilliams [place]. No joint effusion is seen. Vascular calcifications are noted. IMPRESSION: No evidence of acute osseous injury. ACT 112: Negative or not required by law. Electronically signed by: Maico Nguyễn M.D. 04/22/2023 6:44 PM
--- NOTE | 2023-04-22 19:21 | CT Scan Report ---
Exam(s): CT L SPINE EXAM: CT Lumbar Spine Without Intravenous Contrast CLINICAL HISTORY: Back pain. TECHNIQUE: Axial computed tomography images of the lumbar spine without intravenous contrast. CTDI is 39.4 mGy and DLP is 1328.54 mGy-cm. Automated exposure control was utilized for the study. A dose lowering technique was utilized adhering to the principles of ALARA. COMPARISON: CT lumbar spine 03/22/2019. FINDINGS: Vertebrae: Erosive endplate changes of L1-L2 may be postsurgical as there is an intervertebral disc spacer at this level, cannot exclude discitis/osteomyelitis. Minimal age indeterminate L1 compression fracture. Laminectomies of L1, L2, L4 and L5 are present. Posterior screws and rods traverse the entirety of the lumbar spine. Discs/spinal canal/neural foramina: Intervertebral disc spacers at L4- L5 and L5 to as S1 are also present. No spinal canal stenosis. Soft tissues: Mild nonspecific body wall edema. Vasculature: Atherosclerosis. IMPRESSION: 1. Erosive endplate changes of L1-L2 may be postsurgical as there is an intervertebral disc spacer at this level, cannot exclude discitis/osteomyelitis. 2. Minimal age indeterminate L1 compression fracture. 3. Mild nonspecific body wall edema. Electronically signed by: Colleen Pollard MD 04/22/23 19:20 PM
[2023-04-22 19:32] LABS: Basophils # (auto) 0.05 K/uL (0.00-0.20); Basophils % (auto) 0.6 %; Eosinophils # (auto) 0.32 K/uL (0.00-0.50); Eosinophils % (auto) 3.8 %; Hemoglobin 12.4 g/dl (14.0-18.0); Immature Granulocytes # (auto) 0.05 K/uL (0.01-0.20); Immature Granulocytes % (auto) 0.6 %; Lymphocytes # (auto) 2.03 K/uL (1.20-3.40); Lymphocytes % (auto) 24.3 %; Mean Corpuscular Hemoglobin 33.5 pg (25.0-34.0); Mean Corpuscular Hgb Conc 34.4 g/dL (32.0-36.0); Mean Corpuscular Volume 97.3 fL (80.0-100.0); Mean Platelet Volume 9.2 fL (9.4-12.4); Monocytes % (auto) 8.4 %; Neutrophils # (auto) 5.21 K/uL (1.40-6.50); Neutrophils % (auto) 62.3 %; Platelet Count 383 K/uL (130-400); RDW Coefficient of Variation 13.7 % (11.5-14.5); RDW Standard Deviation 49.1 fL (36.4-46.3); White Blood Count 8.36 K/ul (4.8-10.8)
[2023-04-22 19:44] LABS: Alanine Aminotransferase 26 U/L (7-52); Albumin Globulin Ratio 1.5 (0.9-2); Albumin Level 4.4 gm/dl (3.4-5.0); Alkaline Phosphatase 82 U/L (34-104); Anion Gap 9 (3-11); Aspartate Aminotransferase 32 U/L (13-39); BUN Creatinine Ratio 20.6 (10-20); Bilirubin,Total 0.3 mg/dl (0.2-1.0); Blood Urea Nitrogen 29 mg/dl (6-23); Calcium 9.4 mg/dl (8.6-10.3); Carbon Dioxide 25 mmol/L (21-32); Chloride 107 mmol/L (98-107); Est GFR (African American) 57.7 ml/min; Est GFR (Non-African American) 49.8 ml/min; Globulin 2.9 gm/dl (2.5-4.0); Glucose 65 mg/dl (70-99(Fasting)); Potassium 4.8 mmol/L (3.5-5.1); Sodium 141 mmol/L (136-145); Total Protein 7.3 gm/dl (6.0-8.3)
[2023-04-22 20:12] LABS: C Reactive Protein < 0.50 mg/dl (0-0.5)
[2023-04-22] MEDS ORDERED: dilTIAZem HCL 30 MG TAB PO ONE ×2 (20:13→20:37)
[2023-04-22] MEDS ORDERED: METOPROLOL TARTRATE 1 MG/ML VIAL IV STA (20:15)
[2023-04-22] MEDS ORDERED: LORazepam 1 MG in SYRINGE 0.5 ML IV STA (20:44)
[2023-04-22] MEDS ORDERED: LORazepam 1 MG/1 ML SYR ED Inj Use ONE (20:58)
[2023-04-22] MEDS ORDERED: GADOBUTROL 65ML VIAL IV ONE (21:50)
--- NOTE | 2023-04-22 23:14 | Ultrasound Report ---
Exam(s): US VENOUS LEFT LOWER EXTREMITY EXAM: US Duplex Left Lower Extremity Veins CLINICAL HISTORY: Reason for exam: Leg pain and swelling, Eval DVT. TECHNIQUE: Real-time duplex ultrasound scan of the left lower extremity veins integrating B-mode two-dimensional vascular structure, Doppler spectral analysis, color flow Doppler imaging and compression. COMPARISON: None. FINDINGS: Deep veins: Unremarkable. No DVT in the visualized common femoral, femoral, proximal deep femoral or popliteal veins. The veins demonstrate normal color flow, are normally compressible, with normal phasic flow and/or augmentation response. Superficial veins: Unremarkable. No thrombus in the visualized great saphenous vein. Soft tissues: No acute findings. No popliteal cyst. IMPRESSION: No ultrasonographic evidence of deep venous thrombosis involving the left lower extremity. Electronically signed by: Dayana Duong MD 04/22/23 23:13 PM
[2023-04-22 23:28] LABS: INR 2.9 (0.9-1.1); Partial Thromboplastin Ratio 1.3; Partial Thromboplastin Time 38 Seconds (21-31); Prothrombin Time 29.4 Seconds (9.0-12.0)
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
--- NOTE | 2023-04-23 00:07 | Magnetic Resonance Report ---
Exam(s): MRI L SPINE W/WO Contrast IV Amt: 10ml gadavist EXAM: MR Lumbar Spine Without and With Intravenous Contrast CLINICAL HISTORY: Reason for exam: discitis vs. osteomyelitis. TECHNIQUE: Magnetic resonance images of the lumbar spine without and with intravenous contrast in multiple planes. CONTRAST: Patient received 10ml gadavist of IV contrast COMPARISON: CT of the lumbar spine 04/22/2023. FINDINGS: Vertebrae: Minimal compression fracture of L1 with no T2 hyperintensity suggestive of old/chronic etiology. Redemonstrated status post laminectomy at L1, L2, L4 and L5. Diffuse posterior fusion from T11-S1. Spinal cord: Unremarkable. Normal signal. No abnormal enhancement. Soft tissues: There is nonspecific increased signal within the posterior paraspinal musculature and posterior subcutaneous fat most compatible with nonspecific postoperative edema. No fluid collection to suggest abscess. DISCS/SPINAL CANAL/NEURAL FORAMINA: L1-L2: Spondylosis with disc degenerative disease. No stenosis. No abnormal enhancement. L2-L3: Spondylosis with disc degenerative disease. No stenosis. L3-L4: Spondylosis with disc degenerative disease. No stenosis. L4-L5: Spondylosis with disc degenerative disease. No stenosis. L5-S1: Spondylosis with disc degenerative disease. No stenosis. IMPRESSION: Status post posterior fusion as described with otherwise no distinct spinal stenosis. Nonspecific edema involving the posterior paraspinal region with no drainable abscess seen. No signs of discitis or osteomyelitis. Electronically signed by: Dayana Duong MD 04/23/23 00:05 AM
[2023-04-23] MEDS ORDERED: DEXAMETHASONE SOD INJ 4 MG/ML VIAL IV STA (00:16)
[2023-04-23] MEDS ORDERED: HYDROCODONE/ACETAMOPHEN 5/325MG TAB PO PRN (00:18)
[2023-04-23] MEDS ORDERED: BACLOFEN 10 MG TAB PO PRN (00:25)
[2023-04-23] MEDS: HYDROmorphone INJ 1 MG/ML SYRINGE IV PRN ×4 (00:42→20:59)
[2023-04-23] MEDS ORDERED: diazePAM 5 MG TABLET PO PRN (02:40)
[2023-04-23] MEDS ORDERED: ACETAMINOPHEN 325 MG TAB PO PRN (02:40)
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
[2023-04-23] MEDS ORDERED: HYDROmorphone INJ 0.5 MG/0.5 ML SYR IV PRN ×2 (06:59→10:37)
[2023-04-23 07:14] LABS: Basophils # (auto) 0.03 K/uL (0.00-0.20); Basophils % (auto) 0.3 %; Eosinophils # (auto) 0.03 K/uL (0.00-0.50); Eosinophils % (auto) 0.3 %; Hematocrit (blood only) 36.6 % (42.0-52.0); Hemoglobin 12.4 g/dl (14.0-18.0); Immature Granulocytes # (auto) 0.05 K/uL (0.01-0.20); Immature Granulocytes % (auto) 0.6 %; Lymphocytes # (auto) 0.81 K/uL (1.20-3.40); Lymphocytes % (auto) 9.3 %; Mean Corpuscular Hemoglobin 33.2 pg (25.0-34.0); Mean Corpuscular Hgb Conc 33.9 g/dL (32.0-36.0); Mean Corpuscular Volume 97.9 fL (80.0-100.0); Mean Platelet Volume 9.3 fL (9.4-12.4); Monocytes % (auto) 1.1 %; Neutrophils # (auto) 7.72 K/uL (1.40-6.50); Neutrophils % (auto) 88.4 %; Platelet Count 340 K/uL (130-400); RDW Coefficient of Variation 13.7 % (11.5-14.5); RDW Standard Deviation 49.4 fL (36.4-46.3); Red Blood Count 3.74 M/uL (4.70-6.10); White Blood Count 8.74 K/ul (4.8-10.8)
[2023-04-23 07:28] LABS: Albumin Level 4.2 gm/dl (3.4-5.0); BUN Creatinine Ratio 21.3 (10-20); Calcium 8.8 mg/dl (8.6-10.3); Creatinine Clr Calc Pharmacy 22.3 ml/min; Est GFR (African American) 60.2 ml/min; Magnesium 1.7 mg/dl (1.7-2.4); Phosphorus 3.1 mg/dl (2.5-4.9)
[2023-04-23] MEDS: dilTIAZem HCL 30 MG TAB PO SCH ×2 (07:32→17:55)
[2023-04-23] MEDS: dexAMETHasone 4 MG in SYRINGE 0 ML IV SCH ×2 (07:33→16:39)
[2023-04-23] MEDS: diazePAM 5 MG TABLET PO SCH ×2 (07:35→19:57)
--- NOTE | 2023-04-23 07:42 | Hospitalist Progress Note ---
Date of Service April 23, 2023 Assessment & Plan (1) Ambulatory dysfunction: (2) 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, type 2: (3) Anxiety: (4) Cervical stenosis of spinal canal: (5) Spinal stenosis, lumbar region with neurogenic claudication: (6) Status post lumbar surgery: (7) Hypertension: (8) Gout: (9) Prostate cancer: (10) Chronic kidney disease with active medical management without dialysis, stage 3 (moderate): (11) Hepatitis C: (12) Knee pain, left: (13) Lumbar back pain: Plan Sawyer is a 73M w/ PMH of CKDIII, chronic lumbar back pain (s/p lumbar surgery), orthostatic hypotension, anxiety, T2DM, cervical & lumber spinal stenosis, alcohol dependence, HTN, HLD, gout, stress incontinence, BPH, prostate adenocarcinoma, Hepatitis C, and atrial flutter who presents for worsening pain in his left knee, lumbar spine, and thoracic spine. Ambulatory Dysfunction | A/w L Knee Pain and Chronic Lumbar/Thoracic Back Pain - Symptoms acute on chronic - Likely biomechanical: worsening back pain leading to ambulatory dysfunction leading to knee pain which ultimately worsens back pain Acute Pain Lumbar Back Pain - CT scan initially suggested the possibility of discitis versus osteomyelitis - MRI of the lumbar spine only showed s/p posterior fusion, with no distinct spinal stenosis, nonspecific edema involving the posterior paraspinal region w/o abscess - Patient last underwent surgery by Dr. Sanchez Blank on 11/23/2019 - Ortho/Spine Consulted: Appreciate recommendations Imaging reviewed, lack of evidence for infection or indication for surgical intervention at this time - Acute Management: Dexamethasone 6 mg IV, followed by 4 mg IV TID to address suspected edema - Pain Management: Baclofen 10 mg PO TID PRN for spasm Tylenol 600 mg PO q6h PRN for pain/fever [place] 5/324 q4h PRN for moderate pain Dilaudid 1 mg q3h PRN for severe pain Cervical Back Pain - Patient does have a history of cervical spinal stenosis - Current sx suggestive of associated muscular spasm - Diazepam management as outpatient - Inpatient pain management as above Left Knee Pain - X-ray was negative in ED - Acute management and Pain management as above - Suspect origin secondary to ambulatory dysfunction related to back pain - component of abnormal patellar tracking vs osteoarthritis - Improvement with placement of RAPHAEL bandage and resting in bed - Consideration for OMT +/- PT for termite inspector symptom management Paroxysmal Atrial Flutter w/ RVR | Hypertension - INR 2.9 on admission, patient anticoagulated on Warfarin - Restarting anticoagulation given lack of planned procedures - Restarting home antihypertensive as no longer hypotensive - Continue Diltiazem Anxiety - Continue paroxetine and diazepam Code: Full DVT Ppx: Therapeutic Warfarin Diet: Heart Healthy Dispo: Med/Surg Admission and Anticipated Discharge Date Admission Date: April 23, 2023 Supervising Physician Co-Signing Physician Notes I personally examined the patient and verified all guerrero points of history and exam, discussed case, and agree with decision making with Dr Morris Left knee pain, back low back mid back and neck pain. Vitals noted, in general he is awake and alert pleasant appears to be in no distress. HEENT normocephalic atraumatic mucous membranes moist. Left knee shows laterally tracking patella with a little bit of crepitus, no joint effusions minimal joint line tenderness no erythema. Neuro shows no focal deficits. Knee painappears to be patellofemoral/patellar tracking/patellar tendinitistaught VMO strengthening, PT eval and treat, Voltaren gel. Acute on chronic back painknee pain and back pain likely playing off of each other, see mid February discharge instructions for comprehensive plan on his back pain. Unfortunately largely because the office refilled his oxycodone instead of the temporarily escalated narcotic at hydrocodone which I had sent him home on, he essentially ceased to follow-up for anything else. I discussed with him how the plan to actually improve his overall status can in fact function independently from the plan to temporarily escalate pain medicines to better temporarily get a handle on his pain, and that he should not look at it all as essentially an all or none type of a plan especially given that escalated narcotics could only really be helpful temporarily, and otherwise will essentially be a "bridge to nowhere" due to escalated dosing eventually leading to escalated tolerance and lower efficacy of the escalated dosingfollowed eventually by dosing that will not be able to be effective in a way that exceeds his tolerance. Asked senior resident physician to get him scheduled for an OMT visit in the office to make it less likely that he allows himself to sleep through the cracks again. Appreciate Ortho/spine input. Otherwise as above. Subjective 04/23: Patient was resting in bed eating breakfast upon arrival. He noted that his pain remains uncontrolled with the current regimen. He notes a focus of pain at his left knee, lumbar spine, and thoracic spine. He denies any recent injury, fevers, or chills. Patient has chronic radicular sx to his right leg, but denies any acute bowel/bladder changes. Review of Systems Review of Systems: As per HPI Physical Exam Physical Exam: Gen: AO x 3, non-toxic, NAD HEENT: NCAT, MMM Neck: Soft, no LAD Heart: Irregularly irregular, tachycardic, no MRG Lungs: CTAB, non-labored Abdomen: Active bowel sounds, no TTP or masses Extremities: no cyanosis or clubbing, no edema. - Knee: TTP along patella and medial/lat eral joint lines, no effusion, edema, or erythema Skin: No rashes or lesions Neurologic: CN II-XII grossly intact, strength and sensation intact and symmetric Results & Data Results & Data Vital Signs (Past 12 Hours) Vital Signs Temp Pulse Pulse Pulse Resp BP BP 04/23/23 07:28 36.6 C 113 H 18 150/109 H 04/23/23 02:28 36.9 C 100 H 20 146/91 H 04/23/23 02:07 100 H 15 125/86 04/23/23 01:00 99 H 17 129/86 04/22/23 23:21 04/22/23 23:08 105 H 04/22/23 23:02 105/83 04/22/23 23:02 113 H 17 04/22/23 22:41 107/89 04/22/23 20:47 108 H 119/91 04/22/23 20:45 119/91 04/22/23 20:45 111 H 12 04/22/23 20:45 107 H 18 119/91 04/22/23 20:20 121 H 04/22/23 20:08 117 H Pulse Ox O2 Del Method O2 Flow Rate 04/23/23 07:28 94 Room Air 04/23/23 02:28 94 Room Air 04/23/23 02:07 94 Nasal Cannula 2 04/23/23 01:00 94 Nasal Cannula 2 04/22/23 23:21 88 L Room Air, Nasal Cannula 04/22/23 23:08 04/22/23 23:02 04/22/23 23:02 93 04/22/23 22:41 04/22/23 20:47 04/22/23 20:45 04/22/23 20:45 90 04/22/23 20:45 92 Room Air 04/22/23 20:20 04/22/23 20:08 Resident Activity Tracking Resident Involvement: Resident Care Provided Care Provided: Adult Hospital Medicine (2) 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, type 2 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 complication status: without complication 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 retirement insulin use: without termite inspector use Qualified Code(s): E11.9 - Type 2 diabetes mellitus without complications
[2023-04-23] MEDS ORDERED: PNEUMOCOCCAL VACCINE (PCV20) 20-VAL CONJ-DIP CRM/PF 0.5 ML SYR IM ONE (09:30)
[2023-04-23] MEDS ORDERED: HYDROmorphone INJ 1 MG/ML SYRINGE IV STA (10:37)
[2023-04-23] MEDS ORDERED: DICLOFENAC SOD 1% GEL 100 GM TUBE EXT PRN (12:27)
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
--- NOTE | 2023-04-23 16:03 | CT Scan Report ---
CT thoracic spine wo con CLINICAL HISTORY: back pain TECHNIQUE: Multidetector row helical CT of the thoracic spine was performed without administration of intravenous contrast. Coronal and sagittal reformations were obtained. Automated dose lowering techn iques and/or adjustment according to patient size were utilized for this exam. CT DOSE: 1476. mGy.cm Comparison: None available at the time of this dictation. FINDINGS: No acute fractures are identified. Degenerative changes are noted in the visualized spine. Posterior fixation hardware is seen extending from T11 inferiorly and there is a fracture of the left screw at T11. ACDF is seen. IMPRESSION: Degenerative changes without evidence of acute fracture. Fractured left T11 screw is again seen. ACT 112: Negative or not required by law. Electronically signed by: Maico Nguyễn M.D. 04/23/2023 4:01 PM
--- NOTE | 2023-04-23 18:48 | Billing Data ---
Date of Service April 23, 2023 Coding Level of Care Code 81823 SUB INP/OBS CARE MIN
[2023-04-23] MEDS ORDERED: lisinopril 20 MG TAB PO SCH (21:00)
[2023-04-23] MEDS ORDERED: ROSUVASTATIN CALCIUM 20 MG TAB PO SCH (21:00)
[2023-04-23] MEDS ORDERED: CHOLECALCIFEROL 1,000 UNITS 25 MCG TAB PO SCH (21:00)
[2023-04-23] MEDS ORDERED: MULTIVITAMIN TAB PO SCH (21:00)
[2023-04-23] MEDS ORDERED: PARoxetine HCL 20 MG TAB PO SCH ×2 (21:00)
[2023-04-23] MEDS ORDERED: dilTIAZem HCL 30 MG TAB PO ONE (23:51)
[2023-04-24] MEDS: HYDROmorphone INJ 1 MG/ML SYRINGE IV PRN ×5 (00:05→14:29)
[2023-04-24] MEDS: dexAMETHasone 4 MG in SYRINGE 0 ML IV SCH ×3 (00:39→16:12)
[2023-04-24] MEDS ORDERED: dilTIAZem HCL 30 MG TAB PO ONE (01:48)
--- NOTE | 2023-04-24 07:01 | Hospitalist Progress Note ---
"Date of Service April 24, 2023 Assessment & Plan (1) Ambulatory dysfunction: (2) 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, type 2: (3) Anxiety: (4) Cervical stenosis of spinal canal: (5) Spinal stenosis, lumbar region with neurogenic claudication: (6) Status post lumbar surgery: (7) Hypertension: (8) Gout: (9) Prostate cancer: (10) Chronic kidney disease with active medical management without dialysis, stage 3 (moderate): (11) Hepatitis C: (12) Knee pain, left: (13) Lumbar back pain: Plan aSwyer is a 73M w/ PMH of CKDIII, chronic lumbar back pain (s/p lumbar surgery), orthostatic hypotension, anxiety, T2DM, cervical & lumber spinal stenosis, alcohol dependence, HTN, HLD, gout, stress incontinence, BPH, prostate adenocarcinoma, Hepatitis C, and atrial flutter who presents for worsening pain in his left knee, lumbar spine, and thoracic spine. Ambulatory Dysfunction | A/w L Knee Pain and Chronic Lumbar/Thoracic Back Pain - Symptoms acute on chronic - Likely biomechanical: worsening back pain leading to ambulatory dysfunction leading to knee pain which ultimately worsens back pain --- Physical therapy consult requested Acute Pain Lumbar Back Pain - CT scan initially suggested the possibility of discitis versus osteomyelitis - MRI of the lumbar spine only showed s/p posterior fusion, with no distinct spinal stenosis, nonspecific edema involving the posterior paraspinal region w/o abscess - Patient last underwent surgery by Dr. Sanchez Blank on 11/23/2019 - Ortho/Spine Consulted: Appreciate recommendations Imaging reviewed, lack of evidence for infection or indication for surgical intervention at this time - Acute Management: Dexamethasone 6 mg IV, followed by 4 mg IV TID to address suspected edema - Pain Management: Baclofen 10 mg PO TID PRN for spasm Tylenol 600 mg PO q6h PRN for pain/fever [place] 5/324 q4h PRN for moderate pain Dilaudid 1 mg q3h PRN for severe pain Cervical Back Pain - Patient does have a history of cervical spinal stenosis - Current sx suggestive of associated muscular spasm - Diazepam management as outpatient - Inpatient pain management as above Left Knee Pain - X-ray was negative in ED - Acute management and Pain management as above - Suspect origin secondary to ambulatory dysfunction related to back pain - component of abnormal patellar tracking vs osteoarthritis - Improvement with placement of RAPHAEL bandage and resting in bed - Consideration for OMT +/- PT for area counselor symptom management --- OMT visit scheduled outpatinet, PT evaluation requested Paroxysmal Atrial Flutter w/ RVR | Hypertension - INR 2.9 on admission, patient anticoagulated on Warfarin - Restarting anticoagulation given lack of planned procedures - Restarting home antihypertensive as no longer hypotensive - Continue Diltiazem --- Patient requiring Cardizem x 2 overnight, HR remains high 90s-low 100s, no active CP, palpitations, or dyspnea; otherwise hemodynamically stable Anxiety - Continue paroxetine and diazepam Code: Full DVT Ppx: Therapeutic Warfarin Diet: Heart Healthy Dispo: Med/Surg Admission and Anticipated Discharge Date Admission Date: April 23, 2023 Supervising Physician Co-Signing Physician Notes I personally examined the patient and verified all guerrero points of history and exam, discussed case, and agree with decision making with Dr Morris knee pain improved. back pain the same. more bought into the plan as discussed, reiterated.. Vitals noted, in general he is awake and alert pleasant appears to be in no distress. HEENT normocephalic atraumatic mucous membranes moist. Neuro shows no focal deficits. Knee painappears to be patellofemoral/patellar tracking/patellar tendinitistaught VMO strengthening, PT eval and treat, Voltaren gel. improved. safe for home. outpt management. Acute on chronic back pain See discharge instructions. Comprehensive plan outlined yet againessentially the same as in February, except now with his kidney function being so good, we definitely have ability to utilize topical diclofenac. He is set up for OMT next week Subjective 04/24: Patient was comfortable upon arrival. He notes improvement in his pain control, but states that it is not yet ideal. His knee pain has noted the most significant improvement. He denies any fevers, chills, nausea, emesis, chest pain, or dyspnea. Patient experienced an episode of AFib w/ RVR last evening which required Cardizem x 2, he is now asymptomatic. Review of Systems Review of Systems: As per HPI Physical Exam Physical Exam: Gen: AO x 3, non-toxic, NAD HEENT: NCAT, MMM Neck: Soft, no LAD Heart: Irregularly irregular, tachycardic, no MRG Lungs: CTAB, non-labored Abdomen: Active bowel sounds, no TTP or masses Extremities: no cyanosis or clubbing, no edema. - Knee: reduced TTP along patella and me dial/lateral joint lines, no effusion, edema, or erythema Skin: No rashes or lesions Neurologic: CN II-XII grossly intact, strength and sensation intact and symmetric Results & Data Results & Data Vital Signs (Past 12 Hours) Vital Signs Temp Pulse Resp BP Pulse Ox O2 Del Method 04/24/23 04:02 100 H 18 137/84 96 Room Air 04/24/23 02:31 107 H 18 131/86 04/24/23 01:36 108 H 136/97 96 Room Air 04/24/23 00:38 109 H 131/94 95 Room Air 04/23/23 23:16 122 H 04/23/23 22:44 36.7 C 110 H 16 132/96 93 Room Air 04/23/23 20:00 Room Air 04/23/23 19:36 36.5 C 112 H 16 147/102 H 95 Room Air Resident Activity Tracking Resident Involvement: Resident Care Provided Care Provided: Adult Hospital Medicine (2) 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, type 2 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 complication status: without complication 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 penitentiary insulin use: without area counselor use Qualified Code(s): E11.9 - Type 2 diabetes mellitus without complications"
[2023-04-24] MEDS: dilTIAZem HCL 30 MG TAB PO SCH (08:38)
[2023-04-24] MEDS ORDERED: PREGABALIN 75 MG CAP PO SCH (09:00)
[2023-04-24] MEDS: diazePAM 5 MG TABLET PO SCH (09:02)
[2023-04-24] MEDS: ACETAMINOPHEN 325 MG TAB PO SCH ×2 (09:20→14:33)
[2023-04-24 09:49] LABS: BUN Creatinine Ratio 26.6 (10-20); Creatinine Clr Calc Pharmacy 60.6 ml/min; Est GFR (African American) 58.7 ml/min; Est GFR (Non-African American) 50.6 ml/min; Potassium 5.1 mmol/L (3.5-5.1)
[2023-04-24 09:56] LABS: INR 2.1 (0.9-1.1); Prothrombin Time 22.3 Seconds (9.0-12.0)
[2023-04-24] MEDS: DICLOFENAC SOD 1% GEL 100 GM TUBE EXT SCH ×3 (10:47→16:15)
[2023-04-24] MEDS ORDERED: WARFARIN SOD 2.5 MG TAB PO SCH (16:00)
--- NOTE | 2023-04-24 16:16 | Discharge Summary ---
Date of Service April 24, 2023 Admission HPI Per Admitting Provider The patient is a 73-year-old male with a past medical history including CKD stage III, anxiety, lumbar spinal stenosis with neurogenic claudication status post multiple surgeries, history of alcohol dependence, hypertension, hyperlipidemia, gout, prostate cancer, paroxysmal ventricular tachycardia, vent paroxysmal atrial tachycardia, sacroiliitis, hepatitis C, atrial flutter with RVR and generalized weakness. His most recent hospitalization was from 02/13- 02/15/2023 for acute kidney injury on CKD, that responded to conservative therapy. His most recent lumbar spine surgery was noted during admission with Dr. Blank on 11/27/2019. He presents to the emergency department with approximately 10 days of worsening left knee pain, acute on chronic low back pain, and more recent development of neck and upper back pain. Admission Exam Per Admitting Provider The patient is awake, alert and oriented 3, well developed and well nourished, normocephalic and atraumatic, lying in bed and in no acute distress. HEENT--PERRL, EOMI, mucous membranes and oropharynx normal. Neck--supple. No JVD. No bruits. Thyroid normal, trachea midline, no adenopathy. Heart--normal S1 and S2. No murmurs, rubs or gallops. Lungs--clear bilaterally, no respiratory distress, no accessory muscle use. Abdomen--normal bowel sounds and soft. Nontender. Nondistended, no hernias or masses, no organomegaly. Extremities--no cyanosis or clubbing. No edema. Dermatologic--normal skin turgor, normal color, no abnormal lymph nodes, no rash. Neurologic--cranial nerves II through XII grossly intact. Rheumatologic--limited exam due to pain Psychiatric--normal affect. Principal Diagnosis Low Back Pain w/ Knee Pain Discharge Exam Gen: AO x 3, non-toxic, NAD HEENT: NCAT, MMM Neck: Soft, no LAD Heart: Irregularly irregular, tachycardic, no MRG Lungs: CTAB, non-labored Abdomen: Active bowel sounds, no TTP or masses Extremities: no cyanosis or clubbing, no edema. - Knee: reduced TTP along patella and medial/lateral joint lines, no effusion, edema, or erythema Skin: No rashes or lesions Neurologic: CN II-XII grossly intact, strength and sensation intact and symmetric Discharge Data Allergies Allergy/AdvReac Type Severity Reaction Status Date / Time house dust Allergy Unknown congestion,difficulty Verified 04/22/23 21:29 breathing- receives allergy shots mold Allergy Unknown nasal Verified 04/22/23 21:29 congestion, difficulty breathing Penicillins Allergy Unknown rash, hives Verified 04/22/23 21:29 Consultations 04/22/23 23:19 ED Decision to Admit Stat 04/23/23 00:26 Consult Orthopedic Spine Surgery Routine Ordered Studies 04/22/23 17:56 CT lumbar spine wo con Stat US venous doppler LE LT Stat 04/22/23 19:47 MRI Lumbar Spine [MR lumbar spine wo/w con] Stat 04/23/23 15:05 CT thoracic spine wo con Routine Hospital Course (1) Ambulatory dysfunction: (2) 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, type 2: (3) Anxiety: (4) Cervical stenosis of spinal canal: (5) Spinal stenosis, lumbar region with neurogenic claudication: (6) Status post lumbar surgery: (7) Hypertension: (8) Gout: (9) Prostate cancer: (10) Chronic kidney disease with active medical management without dialysis, stage 3 (moderate): (11) Hepatitis C: (12) Knee pain, left: (13) Lumbar back pain: Rashida Jacques is a 73M w/ PMH of CKDIII, chronic lumbar back pain (s/p lumbar surgery), orthostatic hypotension, anxiety, T2DM, cervical & lumber spinal stenosis, alcohol dependence, HTN, HLD, gout, stress incontinence, BPH, prostate adenocarc inoma, Hepatitis C, and atrial flutter who presents for worsening pain in his left knee, lumbar spine, and thoracic spine. Ambulatory Dysfunction | A/w L Knee Pain and Chronic Lumbar/Thoracic Back Pain - Symptoms acute on chronic - Likely biomechanical: worsening back pain leading to ambulatory dysfunction leading to knee pain which ultimately worsens back pain --- Physical therapy recommending outpatient PT Acute Pain Lumbar Back Pain - CT scan initially suggested the possibility of discitis versus osteomyelitis - MRI of the lumbar spine only showed s/p posterior fusion, with no distinct spinal stenosis, nonspecific edema involving the posterior paraspinal region w/o abscess - Patient last underwent surgery by Dr. Sanchez Blank on 11/23/2019 - Ortho/Spine Consulted: Appreciate recommendations Imaging reviewed, lack of evidence for infection or indication for surgical intervention at this time - Acute Management: Dexamethasone 6 mg IV, followed by 4 mg IV TID to address suspected edema - Pain Management: Baclofen 10 mg PO TID PRN for spasm Tylenol 600 mg PO q6h PRN for pain/fever Erie 5/324 q4h PRN for moderate pain Dilaudid 1 mg q3h PRN for severe pain --- Continue pain management regimen PO as outpatient --- Appointment obtained for OMT as part of fpc management plan Cervical Back Pain - Patient does have a history of cervical spinal stenosis - Current sx suggestive of associated muscular spasm - Diazepam management as outpatient - Inpatient pain management as above Left Knee Pain - X-ray was negative in ED - Acute management and Pain management as above - Suspect origin secondary to ambulatory dysfunction related to back pain - component of abnormal patellar tracking vs osteoarthritis - Improvement with placement of RAPHAEL bandage and resting in bed - Consideration for OMT +/- PT for skilled nursing symptom management --- OMT visit scheduled, PT requested outpatinet Paroxysmal Atrial Flutter w/ RVR | Hypertension - INR 2.9 on admission, patient anticoagulated on Warfarin - Restarting anticoagulation given lack of planned procedures - Restarting home antihypertensive as no longer hypotensive - Continue Diltiazem --- HR stable on home dosing of Cardizem Anxiety - Continue paroxetine and diazepam Code: Full DVT Ppx: Therapeutic Warfarin Diet: Heart Healthy Dispo: Home Total Time Total Time Spent Total Time Spent (In Minutes): <30 Discharge Plan Discharge Items Patient Disposition: Home - Self-Care Reason For Visit: LOW BACK PAIN, HX SURGERY Discharge Diagnosis: Low Back Pain Activity: Per Instructions section Non-emergency contact: Primary Care Provider Call non-emergency contact if: you have any medication questions and your symptoms worsen Follow-up/Referrals: Nithya Foster [Primary Care Provider] - 05/13/23 11:05 am Diet: Heart Healthy Addtl Attending Provider Instructions: please note the below instructions were built off your discharge instructions from February since much of the plan is identical - if there's anything about waiting for kidney function to improve/etc or anything else that doesn't make sense for what we talked about this admission/today - i tried my best to read through and edit things, but we're all human and i easily could have missed a stray sentence or two! back pain - as we discussed, back pain like yours is often misunderstood and looked at purely as the bone and disc problems. I have definitely found people have much better improvement in pain and much better quality of life if we look at the whole thing is much more multifactorialwhere the bone/disc disease has essentially "started the fire" but the secondary muscle/ligament pain and spin off nerve facilitation pain can really be as much of a problem as the bone and disc disease itself. This becomes a fairly successful plan of approach for a majority of people (obviously not everyone, but as we have been discussing, in my experience probably 80% of patients get enough of a benefit from this approach that it is worth there while in terms of improved pain and improved quality of life). Bone/discgenerally speaking, while the distorted anatomy ends up being the "root cause" it is also often the least successful part of this to treat, because there is not a lot that were able to do this wildly successful unless somebody reaches a point where they require another surgeryand as we discussed there, really the only time someone could have a high probability of success after surgery tends to be when there are true radicular symptoms (pinched nerve symptoms that can be tracked along a dermatome). To that end, I tend to philosophically look at the bone/disc part of the pain is much more of a "constant" and the rest of the picture is the variables that we can get benefit going after, simply because the risk/benefits/yield for improved pain and quality of life is much better with the other aspects of the pain. However, its not to say that there is "nothing we can do" to help alleviate some of the bone/disc painit is just the treatment is more hit or miss, more side effect riddled, and less long-term successful for this part of the pain - for the short term we'll escalate the narcotic medication from oxycodone to hydromorphone (dilauded) again. This will not really do anything to have a long-term benefit with your pain, but the idea will be that everything else that we can do to help with long-term pain control will take a while to take effect, so escalating her narcotic pain relief for the short-term can at least by a little "breathing room" while the big picture plan has time to take effect. Like we discussed, while it is a bit of an arbitrary "line in the sand" we probably should look at something around groundhog day as the "finish line" for the escalation of narcotics, simply because long-term escalation tends to lead to tolerance, and then the doses less effective, and eventually we reached a point where our tolerance for the medicine exceeds its ability to be effective, and we are taking a pill with no real relief except that we miss it when we do not take it (like what seems to be happening with the oxycodone now). put the oxycodone at the back of the cabinet so you eliminate any chance of accidentally taking both and creating an overdose situation - Otherwise for the bone/disc pain, while you will never really notice pain relief for any individual dose of Tylenol, I would recommend at least for a week or 2 that you try taking some semblance of [id number] Tylenol to see if it potentiates the effectiveness of the Dilaudid. This does not happen with every 1, but sometimes we get a bit of "2+2 = 5" synergy with Tylenol plus a narcotic. Because its not everyone, what I would do is try taking the Tylenol for a week or 2 with the Dilaudid on top of it, and simply taking the Dilaudid for a week or 2 without the Tylenol to see if it does help more by additive effect, and to save you from taking a pill if its not helping at all - now that your kidney numbers are back to pretty good you can use voltaren gel (topical diclofenac) on your back where it hurts (obviously you'll need some help putting it on) - it usually doesn't work at each dose - typically it takes 2-3 days at 3-4 doses per day to get up to speed, but then i find a surprising number of people (including my with her lupus and myofascial pain) will get relief from it in a pretty helpful way - Pain psychology:while this is a treatment modality is much for the whole approach to chronic pain, given that the bone/disc pain has the most immutable quality to it, I have put pain psychology in this section. As we discussed, having watched the GI psychologist work with my oldest daughter whenever she had a neuropathic chronic abdominal pain, it was fascinating how essentially the treatment modality made to reveal the old philosophical saying "the difference between pain and suffering is the struggle". I am not aware of any clinical psychologists locally that specifically do pain psychology, although there might be. [facility] (the psychology clinic on [facility] does biofeedback which is different, but can be helpful; and I do believe that Dhruv has pain psychology in [facility] possibly after 1 visit face-to-f raphael they might be able to do the rest remotely. Muscle/ligament- while the bone and disc disease ends up being the underlying driving factor that creates muscle and ligament tightness/pain, treating the muscle/ligament pain tends to be higher yield and more successful in making a dent in the overall burden of pain, and also even times where someone successfully has the bone/disc disease corrected (someone who has a narrow focused surgical problem that can be "fixed") oftentimes fixing the bone and disc problems do not fix the overlying muscle ligament problems. Those are 2 different ways of saying the same thingthat we are likely to get you a pretty significant benefit in your pain and quality of life by specifically addressing the muscle/ligamentous tightness - there are many different ways that we can go about this, in my experience (whenever I was in the office) generally speaking the most successful overall would be a steady treatment of OMT (osteopathic manipulative therapy)essentially what that amounts to is that a DO physician who does a lot of OMT will work on the muscles and ligaments that are surrounding the distorted bony anatomypredominantly for you this will be your cervical, thoracic, and lumbar paraspinals; I am also highly suspicious that your pelvic stabilizer muscles are involved as well. Manipulative medicine is more or less " neuromuscular tricks" to try to get the muscles to settle back to a more appropriate resting length. This often takes a while to "take hold" because muscles will often have an aberrant "muscle memory"remember the analogy that we used about how long it would take to develop muscle memory hitting a slap shot at the ice rink. [address] Foster[address] partners (Dr. Balderas) As well as several of his DO residents are quite good at OMTso I think compared to a lot of other patients, it should be fairly easy to keep you pipeline with someone working on the muscles. Because of how intense the pain is and how chronic it has been, like we have been discussing, I do suspect it will probably take several months (set your sites on Easter) to really start to notice an improvementand they will probably have to work on you at least several times a month to keep working towards a more positive muscle memory. Sometimes things can get a little worse before they get better, sometimes people do not feel a whole lot of a benefit at first, but be patient and keep working with thembecause most of the time what I saw as treatment failures were not really that we tried and it did not work; but rather, that people quit trying before it ever had a realistic chance to be a benefit - similar to above with the Voltaren gel, (diclofenac gel), it can also be helpful for the muscle painso while you will be putting it in the same place, it will hopefully be helping with both of these portions of the pain - while the diazepam (Valium) that you are on, in my experience, is the best pharmacologic muscle relaxant that we have, good blood flow tends to be an even better muscle relaxant than anything we can do pharmacologically. (When you look at muscle physiology, it takes a energy for the muscle to relax after a contractionand so getting good blood flow tends to help keep a muscle that a better/overall more relaxed state). Moist heat can help bring in blood flowso I would definitely try heating pads/hot showers/tubs. At the same time, light cardiovascular exercise (anything that gets your heart rate up and get your breathing up) is really better for blood flow than anything elseand so while there are certain limitations, I would definitely think it is worth your while to try to find some sort of exercise that you can do regularly (at least several days a week) that gets your heart rate up for at least 20 minutes at a time. This will help improve blood flow to the tight, chronically spastic muscles and help them relax better overall nerve facilitationanyone with chronic pain will start to have their nerves tripped more into a state where they carry pain as the "normal day" sensation. the best analogy would be thinking of somebody who has phantom limb painthey no longer have a "somatic focus" to generate the painbut they still often will feel pain from the foot they no longer havethis is because the nerves that carry pain essentially start to carry pain is a "new normal" and the part of her brain that since this pain starts to interpret pain is a "new normal". We have started the Lyrica (pregabalin to try to help make a dent in the peripheral n erve carrying of painyou are on a fairly low-doseobviously we need to pay attention to dosing as it relates to your kidney functionbut also it takes about a month for any dose of Lyrica to truly take effectso for now will sit at the 75 mg twice a day and has a follow-up in the office Dr. Foster can adjust the dose up if it seems like it is helping, but not enough. Similarly, but further up the nervous system, and adjustment from paroxetine to an SNRI (such as duloxetine), or a tricyclic (such as amitriptyline) can also be more pain modifyingbut given that were making several other medication changes, it is better to make these types of changes 1 at a time rather than risking a lot of potential side effects and not knowing where it came from. When we looked together - the cost of generic lyrica (pregabalin) 75mg twice a day for 60 pills (30 days) was about $15 give or take, depending on the pharmacy, if you use [facility] (either download the [employer] joao or go to [email or web address]) - You have an OMT appointment scheduled with Dr. Merary Padgett on May 03 2023 @ 11:05. Please ensure that you keep this appointment. - You have a hospital follow up appointment with Dr. Ranjan Foster on May 13 @ 11:05. Please ensure that you keep this appointment. Pending Studies at Discharge: No Stand-Alone Forms: My [facility] [employer], Smoking Cessation Medications and DC Order Prescriptions: New diclofenac sodium [Voltaren Arthritis Pain] 1 % Gel 4 g EXT QID 14 Days Qty: 100 0RF hydromorphone 2 mg tablet 2 mg PO Q8H PRN (Reason: pain) Qty: 60 0RF pregabalin 75 mg capsule 75 mg PO BID Qty: 60 0RF Continued multivitamin Tablet 1 tab PO HS paroxetine HCl [Paxil] 40 mg tablet 40 mg PO HS Rx Instructions: TAKE WITH 20MG =60MG DAILY lisinopril [Zestril] 20 mg tablet 20 mg PO HS paroxetine HCl 20 mg tablet 20 mg PO HS Rx Instructions: TAKE WITH 40MG = 60MG DAILY rosuvastatin 40 mg tablet 40 mg PO HS diltiazem HCl 30 mg tablet 30 mg PO BID diazepam 5 mg tablet 5 mg PO BID cholecalciferol (vitamin D3) [Vitamin D3] 25 mcg (1,000 unit) Tablet 25 mcg PO HS warfarin 2.5 mg tablet 2.5 mg PO DAILY diazepam 5 mg tablet 5 mg PO TID PRN (Reason: Pain) Discharge Orders: Discharge Order (Routine); Ordered 04/24/23 Ordered By: Ofelia Carnes/Other Patient Handouts: What to Know When TakingWarfarin, Relieving Back Pain, Back Care Every Day Admission Data Admit Date/Time: 04/23/23 00:26 Attending Provider: Francis Mera Admit Provider: Ian Menendez Primary Care Provider: Nithya Foster Other Providers: Sanchez Blank; Ian Menendez Supervising Physician Co-Signing Physician Notes I personally examined the patient and verified all guerrero points of history and exam, discussed case, and agree with decision making with Dr Morris knee pain improved. back pain the same. more bought into the plan as discussed, reiterated.. Vitals noted, in general he is awake and alert pleasant appears to be in no distress. HEENT normocephalic atraumatic mucous membranes moist. Neuro shows no focal deficits. Knee painappears to be patellofemoral/patellar tracking/patellar tendinitistaught VMO strengthening, PT eval and treat, Voltaren gel. improved. safe for home. outpt management. Acute on chronic back pain See discharge instructions. Comprehensive plan outlined yet againessentially the same as in February, except now with his kidney function being so good, we definitely have ability to utilize topical diclofenac. He is set up for OMT next week Resident Activity Tracking Resident Involvement: Resident Care Provided Care Provided: Adult Hospital Medicine
--- NOTE | 2023-04-24 16:36 | Billing Data ---
Date of Service April 24, 2023 Coding Level of Care Code 43081 IN/OBS DISCH 30 MIN/LESS
--- NOTE | 2023-04-25 05:51 | Electrocardiogram Report ---
Test Reason : Blood Pressure : / mmHG Vent. Rate : 113 BPM Atrial Rate : 000 BPM P-R Int : 000 ms QRS Dur : 084 ms QT Int : 348 ms P-R-T Axes : 000 007 -02 degrees QTc Int : 477 ms Atrial fibrillation with rapid ventricular response Abnormal ECG When compared with ECG of 12-FEB-2023 19:40, Atrial fibrillation has replaced Sinus rhythm Vent. rate has increased BY 53 BPM Confirmed by Horace Horton ([id number]) on 04/25/2023 5:50:40 AM Referred By: REFERRED SELF Confirmed By:Horace Horton
--- NOTE | 2023-04-25 05:53 | Electrocardiogram Report ---
Test Reason : Blood Pressure : / mmHG Vent. Rate : 117 BPM Atrial Rate : 000 BPM P-R Int : 000 ms QRS Dur : 078 ms QT Int : 314 ms P-R-T Axes : 000 039 048 degrees QTc Int : 438 ms Atrial fibrillation with rapid ventricular response Abnormal ECG When compared with ECG of 22-APR-2023 20:00, No significant change Confirmed by Horace Horton ([id number]) on 04/25/2023 5:52:54 AM Referred By: REFERRED SELF Confirmed By:Horace Horton
--- NOTE | 2023-04-26 18:23 | Electrocardiogram Report ---
Test Reason : Blood Pressure : / mmHG Vent. Rate : 115 BPM Atrial Rate : 078 BPM P-R Int : 000 ms QRS Dur : 082 ms QT Int : 348 ms P-R-T Axes : 000 057 067 degrees QTc Int : 482 ms Atrial fibrillation with rapid ventricular response Prolonged QT Abnormal ECG When compared with ECG of 22-APR-2023 23:00, No significant change was found Confirmed by Horace Horton ([id number]) on 04/26/2023 6:22:32 PM Referred By: REFERRED SELF Confirmed By:Horace Horton
== END 2023-04-24 20:00 | disposition home or self-care (01) ==
LOC: ED 17:11 → 3W 17:11 → SUATTDRO 04-23 00:26 → 3W 04-23 02:07

== ENCOUNTER 2023-09-09 13:42 | Inpatient (IN) ==
[2023-09-09] MEDS: LORazepam 1 MG/1 ML SYR ED Inj Use IV STA (14:13)
[2023-09-09] MEDS: ONDANSETRON INJ 2 MG/ML 2 ML VIAL IV STA ×2 (14:13→15:59)
--- NOTE | 2023-09-09 14:37 | XRay Report ---
XR chest 1V portable CLINICAL HISTORY: Dysrhythmia, CP TECHNIQUE: Single frontal radiograph of the chest was obtained. Comparison: Comparison is made to chest radiograph 02/12/2023 FINDINGS: ACDF is seen. The cardiomediastinal silhouette is normal. The lungs are clear. No evidence of pleural effusion or pneumothorax. IMPRESSION: No acute chest disease. ACT 112: Negative or not required by law. Electronically signed by: Maico Nguyễn M.D. 09/09/2023 2:36 PM
[2023-09-09 14:48] LABS: Basophils # (auto) 0.02 K/uL (0.00-0.20); Basophils % (auto) 0.1 %; Hematocrit (blood only) 43.7 % (42.0-52.0); Hemoglobin 15.5 g/dl (14.0-18.0); Immature Granulocytes # (auto) 0.04 K/uL (0.01-0.20); Immature Granulocytes % (auto) 0.3 %; Lymphocytes # (auto) 0.82 K/uL (1.20-3.40); Lymphocytes % (auto) 5.9 %; Mean Corpuscular Hemoglobin 32.1 pg (25.0-34.0); Mean Corpuscular Hgb Conc 35.5 g/dL (32.0-36.0); Mean Corpuscular Volume 90.5 fL (80.0-100.0); Mean Platelet Volume 10.3 fL (9.4-12.4); Monocytes # (auto) 0.91 K/uL (0.11-0.59); Monocytes % (auto) 6.6 %; Neutrophils # (auto) 12.07 K/uL (1.40-6.50); Neutrophils % (auto) 87.1 %; Platelet Count 264 K/uL (130-400); RDW Coefficient of Variation 12.7 % (11.5-14.5); RDW Standard Deviation 41.8 fL (36.4-46.3); Red Blood Count 4.83 M/uL (4.70-6.10); White Blood Count 13.86 K/ul (4.8-10.8)
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
[2023-09-09 14:57] LABS: Albumin Globulin Ratio 1.8 (0.9-2); Albumin Level 4.8 gm/dl (3.4-5.0); BUN Creatinine Ratio 18.2 (10-20); Bilirubin,Total 0.6 mg/dl (0.2-1.0); Calcium 9.8 mg/dl (8.6-10.3); Creatinine Clr Calc Pharmacy 26.6 ml/min; Est GFR (African American) 25.2 ml/min; Est GFR (Non-African American) 21.7 ml/min; Globulin 2.7 gm/dl (2.5-4.0); Potassium 3.7 mmol/L (3.5-5.1); Total Protein 7.5 gm/dl (6.0-8.3)
[2023-09-09 15:04] LABS: Troponin I High Sensitivity 20.7 pg/ml (0-20)
[2023-09-09 15:08] LABS: INR 3.6 (0.9-1.1); Partial Thromboplastin Ratio 1.1; Partial Thromboplastin Time 30 Seconds (21-31); Prothrombin Time 34.8 Seconds (9.0-12.0)
[2023-09-09 15:13] LABS: Thyroid Stimulating Hormone 0.279 uIu/ml (0.300-4.500)
[2023-09-09] MEDS: dilTIAZem HCL 125 MG in DEXTROSE 5% 100 ML IV SCH (15:53)
[2023-09-09] MEDS: SODIUM CHLORIDE 0.9% 500 ML IV ONE (16:03)
[2023-09-09 16:13] LABS: T4 Free Thyroxine 1.3 ng/dl (0.61-1.60)
--- NOTE | 2023-09-09 16:18 | CT Scan Report ---
ABDOMEN AND PELVIS CT WITHOUT CONTRAST CT DOSE: 1245.33 mGy.cm HISTORY: epigastric pain to left tenderness TECHNIQUE: Multiaxial CT images of the abdomen and pelvis were performed without contrast. A dose lo wering technique was utilized adhering to the principles of ALARA. COMPARISON STUDY: Abdomen and pelvis CT 02/12/2023. FINDINGS: The lung bases are clear. No pneumoperitoneum. No pneumatosis. No acute fractures identifie d. Right sacroiliac bolts are noted. Extensive posterior fusion hardware from T11 through S1 again no ernestina. The left T11 pedicle screw remains fractured. Pericardial calcifications again noted. Moderate t hickening of the gastric antrum with mild adjacent fat stranding. No perforation identified. Small du odenal diverticulum is noted. Small midline supraumbilical hernia containing a knuckle small bowel re marisol unchanged. No evidence for bowel obstruction. Stable 6 mm hypodense lesion within the right hep atic dome. This favors a cyst. The gallbladder, pancreas, spleen, and adrenal glands unremarkable. No renal stones or hydronephrosis. Stable right renal lesions measuring up to 2.7 cm again noted. These favor cysts. Calcified plaque within the normal caliber abdominal aorta. No retroperitoneal or pelvi c lymphadenopathy. No pelvic free fluid. Normal bladder. Small fat-containing bilateral inguinal colette ias. Stable appearance of the appendix. No evidence for acute appendicitis. Colonic diverticulosis. N o evidence for acute diverticulitis. Fluid-filled colon. Questionable mild thickening within the dist al descending colon and proximal sigmoid colon. This raises the possibility of a low-grade colitis. IMPRESSION: 1. Moderate thickening of the gastric antrum with adjacent fat stranding. This favors a nonspecific g astritis. An underlying gastric ulcer is not excluded. However, no perforation identified. Follow-up nonemergent endoscopy recommended for further evaluation. 2. Questionable mild thickening of the distal descending colon and proximal sigmoid colon raising the possibility of a low-grade colitis. 3. Fluid-filled colon suggestive of a diarrheal illness. 4. Small midline supraumbilical hernia containing a knuckle of small bowel. This remains unchanged. N o evidence for a bowel obstruction. 5. Additional findings as described above. ACT 112: Negative or not required by law. Electronically signed by: Andres Carty M.D. 09/09/2023 4:17 PM
[2023-09-09] MEDS: STAT IV Infusion **Titration per Protocol STA (16:34)
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
[2023-09-09] MEDS: FAMOTIDINE 20MG IV PUSH 20 MG/5 ML SYR IV STA (16:52)
[2023-09-09] MEDS: PANTOprazole 80 MG in DEXTROSE 5% 100 ML IV STA (17:22)
[2023-09-09] MEDS: LACTATED RINGER'S 1,000 ML IV ONE ×2 (17:23→19:39)
[2023-09-09] MEDS: LACTATED RINGER'S 1,000 ML IV SCH (19:40)
[2023-09-09] MEDS: ONDANSETRON INJ 2 MG/ML 2 ML VIAL IV PRN (19:45)
[2023-09-09 20:14] LABS: Adenovirus F 40/41 PCR Not Detected (NotDetected); Astrovirus PCR Not Detected (NotDetected); Campylobacter PCR Not Detected (NotDetected); Cryptosporidium PCR Not Detected (NotDetected); Cyclospora cayetanensis PCR Not Detected (NotDetected); Entamoeba histolytica PCR Not Detected (NotDetected); Enteroaggregative E.coli(EAEC) Not Detected (NotDetected); Enteropathogenic E.coli (EPEC) Not Detected (NotDetected); Enterotoxigenic E.coli (ETEC) Not Detected (NotDetected); Giardia lamblia PCR Not Detected (NotDetected); Norovirus GI/GII PCR Not Detected (NotDetected); Plesiomonas shigelloides PCR Not Detected (NotDetected); Rotavirus A PCR Not Detected (NotDetected); Salmonella PCR Not Detected (NotDetected); Sapovirus PCR Not Detected (NotDetected); Shiga-like Toxin E.coli (STEC) Not Detected (NotDetected); Shigella/Enteroinvasive E.coli Not Detected (NotDetected); Vibrio cholerae PCR Not Detected (NotDetected); Vibrio species PCR Not Detected (NotDetected); Yersinia enterocolitica PCR Not Detected (NotDetected)
[2023-09-09] MEDS: ROSUVASTATIN CALCIUM 20 MG TAB PO SCH (20:48)
[2023-09-09] MEDS: diazePAM 5 MG TABLET PO SCH (20:48)
[2023-09-09] MEDS ORDERED: PARoxetine HCL 20 MG TAB PO SCH (21:00)
[2023-09-09] MEDS: PARoxetine HCL 20 MG TAB PO SCH (21:26)
[2023-09-10] MEDS: dilTIAZem HCL 30 MG TAB PO SCH (01:34)
--- NOTE | 2023-09-10 06:24 | Electrocardiogram Report ---
Test Reason : Blood Pressure : / mmHG Vent. Rate : 108 BPM Atrial Rate : 000 BPM P-R Int : 000 ms QRS Dur : 084 ms QT Int : 356 ms P-R-T Axes : 000 046 046 degrees QTc Int : 477 ms Atrial fibrillation with rapid ventricular response Abnormal ECG When compared with ECG of 26-APR-2023 21:21, No significant change was found Confirmed by Horace Horton ([id number]) on 09/10/2023 6:24:19 AM Referred By: Confirmed By:Horace Horton
[2023-09-10 06:30] LABS: Basophils # (auto) 0.04 K/uL (0.00-0.20); Basophils % (auto) 0.4 %; Eosinophils # (auto) 0.09 K/uL (0.00-0.50); Eosinophils % (auto) 0.8 %; Hematocrit (blood only) 36.7 % (42.0-52.0); Hemoglobin 12.5 g/dl (14.0-18.0); Immature Granulocytes # (auto) 0.05 K/uL (0.01-0.20); Immature Granulocytes % (auto) 0.4 %; Lymphocytes # (auto) 1.08 K/uL (1.20-3.40); Lymphocytes % (auto) 9.6 %; Mean Corpuscular Hemoglobin 31.3 pg (25.0-34.0); Mean Corpuscular Hgb Conc 34.1 g/dL (32.0-36.0); Mean Platelet Volume 10.3 fL (9.4-12.4); Monocytes # (auto) 1.02 K/uL (0.11-0.59); Monocytes % (auto) 9.1 %; Neutrophils # (auto) 8.93 K/uL (1.40-6.50); Neutrophils % (auto) 79.7 %; Platelet Count 198 K/uL (130-400); RDW Coefficient of Variation 12.8 % (11.5-14.5); RDW Standard Deviation 43.8 fL (36.4-46.3); Red Blood Count 3.99 M/uL (4.70-6.10); White Blood Count 11.21 K/ul (4.8-10.8)
[2023-09-10 06:36] LABS: Prothrombin Time 47.2 Seconds (9.0-12.0)
[2023-09-10 06:53] LABS: BUN Creatinine Ratio 16.7 (10-20); Calcium 8.8 mg/dl (8.6-10.3); Est GFR (African American) 30.3 ml/min; Est GFR (Non-African American) 26.2 ml/min; Magnesium 1.8 mg/dl (1.7-2.4); Potassium 3.8 mmol/L (3.5-5.1)
--- OUTSIDE RECORDS SUMMARY | 2023-09-10 07:02 | External Medical Summary | Continuity of Care Document ---
Author Name Unknown Organization [address] Address [address] [place] [id number] Care Team Providers Care Curriculum Assistant Principal Name Role Phone Gavin Foster Primary Care Physician [phone] Encounter [facility] [id number] Date(s): 06/19/23 - 06/19/[address] [place] [id number] [facility], [facility] [address] [place] [address] [phone] Encounter Diagnosis Body mass index [BMI] 29.0-29.9, adult(Discharge Diagnosis) - 06/19/23 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(Discharge Diagnosis) - 06/19/23 Chronic renal failure, stage 3 (moderate)(Discharge Diagnosis) - 06/19/23 Anxiety and depression(Discharge Diagnosis) - 06/19/23 Chronic back pain(Discharge Diagnosis) - 06/19/23 Discharge Disposition: Home or Self Care Attending Physician: MD Foster Ravishankar E Referring Physician: MD Foster Ravishankar E Allergies, Adverse Reactions, Alerts Substance Reaction Severity Status azithromycin Active penicillins Active Neurontin emotional distress Active Dust Nasal itching Active Mold Nasal congestion Active Lyrica Able to recognise own emotional pain and distress Active Assessment and Plan Extracted from: Title:Office Visit Note Author:CLAUDIA Melvin Kat y Marie Date:06/19/23 1.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 Problem isChronic Goal:maintenance Data:_ Plan:update labs, continue with current regimen 2.Chronic renal failure, stage 3 (moderate) Problem isChronic Goal:maintenance Data:_ Plan:update labs, discussed the importance of monitoring and preserving renal function 3.Anxiety and depression Problem isChronic Goal:maintenance Data:_ Plan:stop paroxetine and start buspirone 4.Chronic back pain Problem isChronic Goal:maintenance Data:_ Plan:offered pain management referral Patient verbalizes understanding and agrees with plan Immunizations Given and Recorded Vaccine Date Status Refusal Reason influenza virus vaccine, inactivated 02/11/23 Jaime rded influenza virus vaccine, inactivated 03/10/21 Jaime rded influenza virus vaccine, inactivated 12/26/19 Jaime rded influenza virus vaccine, inactivated 02/03/18 Give n influenza virus vaccine, inactivated 01/24/16 Give n influenza virus vaccine, inactivated 02/12/14 Jaime rded SARS COVID Vaccine Unspecified 02/11/23 Recorded SARS-CoV-2 (COVID-19) mRNA BNT-162b2 vax 08/11/20 Recorded tetanus/diphtheria/pertuss, acel (Tdap) 05/06/11 R ecorded Medications busPIRone 10 mg oral tablet Start: 06/19/23 14:33:00 EST, 1 tab, PO, tid, Disp# 90 tab, Refills: 3, Pharmacy: [facility]/pharmacy #6 Start Date: 06/19/23 Stop Date: 10/17/23 Status: Ordered Cardizem 30 mg oral tablet Start: 05/13/23 13:31:00 EST, 1 tab, PO, bid, Disp# 180 tab, Refills: 3, Note to Pharmacy: discontinue metoprolol, Pharmacy: [facility]/pharmacy #191 Start Date: 05/13/23 Status: Ordered cholecalciferol 25 mcg (1000 intl units) oral capsule Start: 03/20/23 15:45:00 EST, 1 cap, PO, qhs Start Date: 03/20/23 Status: Ordered colchicine Start: 03/20/23 15:48:00 EST, 0.6 mg =, PO, Daily, PRN: gout Start Date: 03/20/23 Status: Ordered diazePAM 5 mg oral tablet Start: 06/10/23 11:19:00 EST, 1 tab, PO, bid, Disp# 60 tab, Refills: 0, Note to Pharmacy: PDMP verified, Pharmacy: [facility]/pharmacy #191 Start Date: 06/10/23 Status: Ordered lisinopril 20 mg oral tablet Start: 12/24/22 15:12:00 EDT, See Instructions, Disp# 90 tab, Refills: 3, TAKE 1 TABLET BY MOUTH EVERY DAY, Pharmacy: [facility]/pharmacy #[id number] Start Date: 12/24/22 Status: Ordered Lyrica Start: 03/20/23 15:36:00 EST, 75 mg =, PO, bid Start Date: 03/20/23 Status: Ordered metFORMIN 500 mg oral tablet Start: 07/18/22 8:48:00 EDT, See Instructions, Disp# 90 tab, Refills: 3, TAKE 1 TABLET BY MOUTH EVERY DAY, Pharmacy: [facility]/pharmacy #[id number] Start Date: 07/18/22 Status: Ordered multivitamin Start: 06/21/15 13:07:00, 1 tab, PO, Daily Start Date: 06/21/15 Status: Ordered oxyCODONE 5 mg oral tablet Start: 06/10/23 11:19:00 EST, 5 mg =, PO, tid, Disp# 90 tab, Refills: 0, Note to Pharmacy: PDMP verified, pls revert to 90 tab with next fill, 60 was temporary due to short supply, PRN: as needed forpain, Pharmacy: [facility]/pharmacy #[id number] Start Date: 06/10/23 Stop Date: 07/10/23 Status: Ordered rosuvastatin 40 mg oral tablet Start: 10/05/22 9:26:00 EDT, 1 tab, PO, qhs, Disp# 90 tab, Refills: 1, Pharmacy: [facility]/pharmacy #[id number] Start Date: 10/05/22 Status: Ordered warfarin 2.5 mg oral tablet Start: 05/13/23 13:31:00 EST, See Instructions, Disp# 45 tab, Refills: 2, Take ndv-cmm-p-half tablets daily by mouth as directed by [facility]., Note to Pharmacy: ?s: El [phone]., Pharmacy: [facility]/pharmacy #[id number] Start Date: 05/13/23 Status: Ordered Mental Status 06/19/23 Barriers to Learning one year None evide nt Mandatory Health Literacy Documentation Yes Health Literacy Communication Barriers N ever Primary Language Divehi Problem List Condition Confirmation Course Effective Dates Status Health St atus Informant Abnormal gait Confirmed Active Chronic anxiety Confirmed Active Chronic back pain Confirmed Active Chronic renal failure, stage 3 (moderate) Confirmed Active 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 Confirmed Active Opioid contract exists Confirmed Active Headache Confirmed Active Hearing loss Confirmed Active History of lumbar fusion Confirmed Active History of spinal fusion Confirmed Active Hypertension Confirmed Active Failed back syndrome, lumbar Confirmed Active Prostate cancer Confirmed Active Spinal stenosis in cervical region Confirmed Active Spinal stenosis of lumbar region Confirmed Active Tremor Confirmed Active Diagnosis Diagnosis Type Effective Dates Health Status Clinical Service Informant Body mass index [BMI] 29.0-29.9, adult Discharge Diagnosis 06/19/23 Non-Specified 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 Discharge Diagnosis 06/19/23 Anxiety and depression Discharge Diagnosis 06/19/23 Chronic back pain Discharge Diagnosis 06/19/23 Chronic renal failure, stage 3 (moderate) Discharge Diagnosis 06/19/23 Procedures Procedure Date Related Diagnosis Body Site Status Chest X-ray 1 09/25/[address] of abdomen and pelvis wit h contrast 2 09/24/19 Completed Chest X-ray 3 09/23/19 Completed A scan ultrasound 4 09/08/19 Compl eted Plain X-ray of left hand 5 08/16/19 Completed Lumbar spinal stenosis 6 03/10/19 Completed History of shoulder surgery 05/2017 Completed Robot assisted laparoscopic radical prostatectomy 05/17/16 Completed Mohs surgery 7 10/05/15 Completed Biopsy 8 08/08/15 Completed Biopsy 9, 10, 11 11/2014 Complete d Balloon sinuplasty 02/2014 Comple ernestina Colonoscopy 12 05/16/04 Completed Achilles tendon repair 13 Completed Colonoscopy 14 Completed Rotator cuff repair 15 Co mpleted Spinal fusion 16 Complete d Surgery 17 Completed Surgery 18 Completed 1impression: 1. minimal if any residual bibasilar opacities. No convincing evidence of acture cardioplmonary disease on the current exam 21. No acute process within the abdomen or pelvis 2. Mildly dilated appendix which contains numerous deverticula. No evidence for acute appendicitis or diverticulitis however surgical consultation is recommended for consideration for appendectomy given potential for underlying lesion or complication 3. 1.7 cm lesion within the posterior cortex of the upper pole of the right kidney. This could reflect a small solid renal lesion or hyperdense cyst. Nonemergent MRI of the kidneys is recommended. 4. Status post T11-S1 fusion. Fracture of the left T11 pedicle screw. Lucency adjacent to the T11 screws may reflect loosening. 3impression: 1. cardiomegaly without readiographic evidence of congestive failure 2. patchy airspace opacities are present at both lung bases. This could represent atelectasis and/or pneumonia/aspiration pneumonitis. Clinical corrleation will be required and radioraphic follow-up to resolution is recommended 4impression: 1. no hydronephrosis 2. minimal bilateral renal cortical thinning 5impression: 1. soft tissue swelling 2. no fractures identified 3. no conventional radiographic evidence of osteomyelitis 6Surgey 7Repair of MOHs defect left eye via lateral canthotomy and inferior cantholysis direct apposition. 8L eye lid 9also prostate sonography 10Biopsy showed 1 core of [place] 3 + 3 11prostate biopsy 12Repaet in 10 years Negative exam 13Right 145-10 years; normal exam 15x2 Right 16lumbar region 17cheek bone 18Left ulnar Vital Signs Most recent to oldest [Reference Range]: 1 Height 180.7 cm (06/19/23 2:10 PM) Patient Weight 97.5 kg (06/19/23 2:10 PM) Body Mass Index 29.86 kg/m2 (06/19/23 2:10 PM) Temperature [36.5-37.9 DegC] 36.4 DegC *LOW* (06/19/23 2:10 PM) Heart Rate 79 bpm (06/19/23 2:10 PM) Respiratory Rate 16 br/min (06/19/23 2:10 PM) Blood Pressure 112/84mmHg (06/19/23 2:10 PM) Cuff Pulse Pressure 28 mmHg (06/19/23 2:10 PM) Social History Social History Type Response Tobacco Former smoker Smoking Status Never smoked cigaret jae Sex Male FCM Outpt Note * CLAUDIA Melvin, Andreina Martinez: PERFORM Event Display: FCM Outpt Note Authored Date: [id number] Chief Complaint follow up for medication review History of Present Illness Enrique is a 73 year old male who presents today for a med check. Saw Cardiology after a hospital stay. He was unable to pay for his medication. Now on warfarin. Had been on metoprolol which was changed to diltiazem. Reports that he was taking paroxetine which was discontinued because it can react with the oxycodone Stopped his metoprolol. Metformin was stopped during a hospital stay. GFR is 39 per [place] labs in 04/2023 Back pain - recent fall, getting worse. Reports he has had injections and PT Review of Systems A total of 10 systems were reviewed. Pertinent positive and negatives addressed in HPI, all other findings are negative. Physical Exam Vitals & Measurements T:36.4C HR:79(Monitored) RR:16 BP:112/84 SpO2:97% HT:180.7cm WT:97.5kg WT:97.500kg(Dosing) BMI:29.86 PHQ2 Data(Data Documented on:06/19/2023 14:10) Emotional health assessment NEGATIVE Constitutional: Alert and oriented, No acute distress, Well-appearing, Normal mood and affect Respiratory: Lung sounds are clear, equal chest rise and fall with breathing, no pursed lip breathing Cardiovascular: Heart sounds regular rate and rhythm, without gallop or murmur, no edema HEENT: Normocephalic, atraumatic, conjunctiva are clear, sclera non-icteric, EOM intact Skin: Warm, pink, dry, intact Assessment/Plan 1.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 Problem isChronic Goal:maintenance Data:_ Plan:update labs, continue with current regimen 2.Chronic renal failure, stage 3 (moderate) Problem isChronic Goal:maintenance Data:_ Plan:update labs, discussed the importance of monitoring and preserving renal function 3.Anxiety and depression Problem isChronic Goal:maintenance Data:_ Plan:stop paroxetine and start buspirone 4.Chronic back pain Problem isChronic Goal:maintenance Data:_ Plan:offered pain management referral Patient verbalizes understanding and agrees with plan Problem List/Past Medical History Ongoing Abnormal gait Chronic anxiety Chronic back pain Chronic renal failure, stage 3 (moderate) 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 Failed back syndrome, lumbar Headache Hearing loss High cholesterol History of lumbar fusion History of spinal fusion Hypertension Opioid contract exists Prostate cancer Spinal stenosis in cervical region Spinal stenosis of lumbar region Tremor Historical Acute left flank pain Acute posthemorrhagic anemia Alcohol dependence Alcohol intoxication Allergic drug rash Anxiety Anxiety state Arthritis Atypical chest pain Backache Blepharitis of left eyelid Blood in urine Bulging lumbar disc C/O paresthesia Cervical nerve root pain Cervical radiculitis Chronic low back pain Chronic neck pain Chronic pain Constipation Contusion of orbital tissues Degeneration of cervical intervertebral disc Dehydration Depression Elevated fasting glucose Entropion Eustachian tube disorder Eustachian tube dysfunction Fall Fatigue Fever Flank pain H/O: surgery High blood pressure History of difficult intubation History of repair of musculotendinous cuff of shoulder Hypomagnesemia Hyponatremia Hypotension Knee joint inflamed Knee pain Left flank pain Lumbago Lumbago with sciatica Lumbar disc disease Medication interaction Near syncope Neck pain Orthostatic hypotension Otalgia Paranasal sinus disease Paresthesia of left upper limb Patient encounter status Pleuritic pain Polyuria Poor urinary stream Renal impairment Repeated prescription Sciatica Shoulder pain Skin sensation disturbance Sprain rotator cuff Swelling of bilateral feet Thoracalgia Urinary frequency Viral illness Weight disorder Well adult exam Procedure/Surgical History Chest X-ray (09/25/2019)CT of abdomen and pelvis with contrast (09/24/2019)Chest X-ray (09/23/2019)A scan ultrasound (09/08/2019)Plain X-ray of left hand (08/16/2019)Lumbar spinal stenosis (03/10/2019)History of shoulder surgery (05/2017)Robot assisted laparoscopic radical pr ostatectomy (05/17/2016)Mohs surgery (10/05/2015)Biopsy (08/08/2015)Biopsy (11/2014)Balloon sinuplasty (02/2014)Colonoscopy (05/16/2004)Spinal fusionColonoscopySurgerySurgeryAchilles tendon repairRotator cuff repair Medications busPIRone(busPIRone 10 mg oral tablet), 10 mg= 1 tab, PO, tid, 3 refills cholecalciferol(cholecalciferol 25 mcg (1000 intl units) oral capsule), 25 mcg= 1 cap, PO, qhs colchicine, 0.6 mg, PO, Daily, PRN diazePAM(diazePAM 5 mg oral tablet), 5 mg= 1 tab, PO, bid dilTIAZem(Cardizem 30 mg oral tablet), 30 mg= 1 tab, PO, bid, 3 refills lisinopril(lisinopril 20 mg oral tablet), See Instructions, 3 refills metFORMIN(metFORMIN 500 mg oral tablet), See Instructions, 3 refills multivitamin, 1 tab, PO, Daily oxyCODONE(oxyCODONE 5 mg oral tablet), 5 mg, PO, tid, PRN pregabalin(Lyrica), 75 mg, PO, bid rosuvastatin(rosuvastatin 40 mg oral tablet), 40 mg= 1 tab, PO, qhs, 1 refills warfarin(warfarin 2.5 mg oral tablet), See Instructions, 2 refills Allergies DustNasal itching LyricaAble to recognise own emotional pain and distress MoldNasal congestion Neurontinemotional distress azithromycin penicillins Social History Smoking Status Never smoked cigarettes Alcohol - Denies Alcohol Use Tobacco - Denies Tobacco Use Use:Former smoker Family History Aortic aneurysm: Father. Breast cancer: Mother. Heart attack: Father. Stroke: Mother. Health Status Family Member(s) Immunizations Vaccine Date Status influenza virus vaccine, inactivated 02/11/2023 Recorded SARS COVID Vaccine Unspecified 02/11/2023 Recorded influenza virus vaccine, inactivated 03/10/2021 Recorded SARS-CoV-2 (COVID-19) mRNA BNT-162b2 vax 08/11/2020 Recorded influenza virus vaccine, inactivated 12/26/2019 Recorded influenza virus vaccine, inactivated 02/03/2018 Given influenza virus vaccine, inactivated 01/24/2016 Given influenza virus vaccine, inactivated 02/12/2014 Recorded tetanus/diphtheria/pertuss, acel (Tdap) 05/06/2011 Recorded Recommendations Health Maintenance Pending(in the next year) OverDue Colorectal Cancer Screening due05/14/14and every 10year Due Adult COVID-19 Vaccination due06/19/23Unknown Frequency Adult Social Determinants of Health Screening due06/19/23Unknown Frequency Adult Tdap/Td Vaccine due06/19/23Unknown Frequency Diabetic Eye Exam due06/19/23Unknown Frequency Falls Plan of Care due06/19/23Unknown Frequency Hepatitis C Screening due06/19/23One-time only Medicare Annual Wellness Visit due06/19/23and every 1year Pneumococcal Vaccine Older Adults due06/19/23One-time only Shingles Vaccine due06/19/23One-time only Due In Future Diabetes Management A1c not due until07/01/23and every 366 Adult Influenza Vaccine not due until11/03/23and every 1year Satisfied(in the past 1 year) Satisfied Adult Influenza Vaccine on02/11/23.Satisfied by PRITI Reyes Gillian Body Mass Index on06/19/23.Satisfied by NATHALY Porter Angela Diabetes Management A1c on06/30/22.Satisfied by PRITI Reyes Gillian Lipid Screening on02/12/23.Satisfied by Contributor_system, [employer] Electronic Signature on File CC: Divina Lee, DO [address] [place] [address] Electronically Reviewed/Signed by: CLAUDIA Alston Author Signature Dt/Tm:06/19/2023 03:15 PM Department of Family Medicine [facility] Patient Care team information Care Team Personnel Name: Alan Marsh Todd Position: Pharmacist Schedule II Member Role: Pharmacy - Lifetime Address: Address: [address] [place] [id number] Name: Alan Garcia Francis Position: Pharmacist Schedule II Member Role: Pharmacy - Lifetime Address: Address: [facility] [address] [place] [address] Name: CLAUDIA Melvin Katy Marie Position: Nurse Pract - Family Med Member Role: Lifetime Relationship Address: Address: [address] [place] [id number] [place] Name: MD Cristian, Gavin Gomes Position: Physician Member Role: Primary Care Provider Address: Address: [address] [place] [id number] [place] Care Team Related Persons Name: EVANGELINA VÁSQUEZ Address: [place] [address] Name: LISSETH VÁSQUEZ Name: LISSETH VÁSQUEZ Address: home No Address Provided Name: SARA BURDICK Address: home No Address Provided [place], [place] [id number] Name: MARY JANE DAMIAN Address: home No Address Provided
[2023-09-10 07:05] LABS: Troponin I High Sensitivity 13.9 pg/ml (0-20)
--- NOTE | 2023-09-10 07:13 | Hospitalist Progress Note ---
Date of Service September 10, 2023 Assessment & Plan (1) Atrial fibrillation with rapid ventricular response: Plan: Substernal chest pain started /5. Presented to the ED. Found to be in a fib with RVR. Troponin peaked at 21.5. Likely in the setting of GI infection/deh ydration. Patient started on dilt drip leading to rate control. PO cardizem was continued with the hopes of weaning off of drip and resuming home dosing. His BP was tolerating the drip well until early this morning. Chart review significant for AM vitals with a BP 80/58 around 7:25. MAP 65. Reviewed dilt drip hold parameters which stated hold < 90 SBP and dilt PO hold parameters which stated hold < 100 SBP. Did reach out to who took the BP regarding patient Nita Bear at 7:29. Ordered two bags of Mag for repletion as a small bolus. Patient 3.5L + at that point. She replied at 8:13 that she was not the nurse taking care of the patient. She gave me the name of the nurse. Reached out to Kyaw Alonso and requested repeat vitals at 8:14. Patient was getting reportedly getting an ECHO at that time 8:21. Went to the floor to see patient who appeared well perfused. Repeat vitals with no significant change. Discussed case with Lizette Ramos as dilt drip was still running. At that time dilt drip was decreased to 5. With patient's overall appearance displaying adequate perfusion held off on bolus at this time. Per chart review PO dilt given at 8:45 by Kyaw Alonso. Repeat vitals after 1 hour with continued hypotension. Gave 500 mL NS bolus. BP after bolus with continued hypotension. Repeated bolus and consulted english division chair service for possible vasopressor support. Patient about 5.5L positive at this point. Patient's acuity was escalation to ICU status. He is now on pressor support. Hospitalist team will continue to follow. Hypotension likely in the setting of dilt use. Hold parameters were clearly stated. (2) Gastritis: Plan: Acute onset of nausea and diarrhea the evening of 5/5 Leukocytosis at 13.86 with a neutrophil predominance; afebrile A/P CT favored nonspecific gastritis and low-grade colitis; no perforation Procalcitonin WNL PCR stool culture/C. difficile ordered, pending Blood cultures ordered, pending Elevated anion gap at 17; Lactate ordered, pending Famotidine 20 mg IV QAM Zofran as needed for nausea; QTc 477 (3) Sepsis: Plan: Tachypnea + tachycardia + GI source on arrival Will defer antibiotics for now given likely a viral GI source; also HUS / C. Diff still in the differential Blood cultures ordered, pending 2500mL IVF bolus in the ED Maintenance fluids with LR at 125mL/hr x 2 in the setting of poor oral intake (4) JACK (acute kidney injury): Plan: BUN 51, creatinine 2.80 (baseline around 1.4), EGFR 21.7 Avoid nephrotoxic agents for possible Likely secondary to hypoperfusion in the setting of dehydration Hold lisinopril for now IVF (as above) (5) 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, type 2: Plan: Last A1c 5.6% on 10/29/2022 Not currently on meds; diet controlled Will defer insulin in setting of poor oral intake/acute GI illness AHA diet for now (6) Hypertension: Plan: Hold lisinopril (7) Anxiety: Plan: Continue paroxetine, diazepam Plan Disposition: Admit to PCU telemetry, upgraded to ICU 09/09 Full code Heart healthy diet, as tolerated VTE PPx: On warfarin (will hold while INR supratherapeutic) Admission and Anticipated Discharge Date Admission Date: September 09, 2023 Supervising Physician Co-Signing Physician Notes I personally examined the patient and verified all guerrero points of history and exam, discussed case, and agree with decision making with Dr Singer ongoing nausea no vomiting. Ongoing diarrhea. No blood no melena. No lightheadedness no chest pain or shortness of breath Vitals noted, in general he is awake and alert pleasant appears surprisingly no distress. HEENT normocephalic atraumatic mucous membranes moist. Abdomen is soft mild diffuse tenderness but no guarding rebound or rigidity. Skin without rashes pallor or icterus or diaphoresis. Labs and imaging noted. Shockappears to have been a combination of severe dehydration from his viral gastroenteritis and hypotensive effects from diltiazem for RVR. Additional fluid boluses were given, but unfortunately his pressures are still quite low. I suspect he will need to be on pressor support for short period of time until the diltiazem has worn off; at the same time we will also be helpful to have bedside IVC assessment to ensure he has been adequately fluid resuscitated (I suspect he has, clinically appears euvolemic, and he has had about 3.5 Lat the same time he could still potentially be dry)because of this we are moving him to the ICU. Acute renal failuredue to dehydrationat this point not clear if it is purely prerenal versus ATNfollow for response, low threshold for checking fractional excretion of sodium +/- renal ultrasound. Septic appearanceappears predominantly due to viral enteritis and profound dehydration. Given his hypotension and renal failure, could certainly consider this possible severe sepsis/septic shock A-fibrates now controlled, obviously stopping all rate controlling medicines in light of his hypotension. Chronically anticoagulated on warfarin Subjective Patient seen at bedside this morning. Reports feeling nausea with cramping abdominal pain. Symptoms started about a week ago. Is having diarrhea and significantly decreased PO intake. Patient began experiencing shortness of breath as well which has significantly improved. No chest pain, fevers, chills, vomiting, blood in the stool. Review of Systems Review of Systems: See HPI Physical Exam Physical Exam: General: ill appearing, non-toxic appearing, skin appears well perfused HEENT: normocephalic, atraumatic; no scleral icterus; PERRLA; moist mucus membrane; vision and hearing grossly intact Neck: supple; trachea midline Skin: warm, dry; no cyanosis; no rashes, bruising, lesions, or erythema noted CV: irregularly irregular rhythm rated control; S1/S2 normal; no murmurs/rubs /gallops; pulses intact and symmetric at radial, DP, and PT Lungs: no acute respiratory distress; symmetrical chest wall expansion; clear breath sounds across all lung johnson w/o adventitious sounds; no wheezing ABD: Soft, diffusely tender, no peritoneal signs; BS present; no rebound/guarding; no distention MSK: Patient trembling in bed Neuro: alert and oriented; normal mood and affect; fluent speech; no focal deficits Results & Data Results & Data Vital Signs (Past 12 Hours) Vital Signs Temp Pulse Pulse Resp BP Pulse Ox O2 Del Method 09/10/23 02:53 36.6 C 87 20 105/69 95 Room Air 09/09/23 22:50 36.6 C 84 16 107/72 95 Room Air 09/09/23 22:10 98 H 09/09/23 22:04 91 H 09/09/23 19:42 37 C 72 20 111/67 96 Room Air 09/09/23 19:35 90 Diagnostic Findings Chest X-Ray 09/09/23 14:00 FINDINGS: ACDF is seen. The cardiomediastinal silhouette is normal. The lungs are clear. No evidence of pleural effusion or pneumothorax. IMPRESSION: No acute chest disease. Abdomen/Pelvis CT 09/09/23 14:07 FINDINGS: The lung bases are clear. No pneumoperitoneum. No pneumatosis. No acute fractures identified. Right sacroiliac bolts are noted. Extensive posterior fusion hardware from T11 through S1 again noted. The left T11 pedicle screw remains fractured. Pericardial calcifications again noted. Moderate thickening of the gastric antrum with mild adjacent fat stranding. No perforation identified. Small duodenal diverticulum is noted. Small midline supraumbilical hernia containing a knuckle small bowel remains unchanged. No evidence for bowel obstruction. Stable 6 mm hypodense lesion within the right hepatic dome. This favors a cyst. The gallbladder, pancreas, spleen, and adrenal glands unremarkable. No renal stones or hydronephrosis. Stable right renal lesions measuring up to 2.7 cm again noted. These favor cysts. Calcified plaque within the normal caliber abdominal aorta. No retroperitoneal or pelvic lymphadenopathy. No pelvic free fluid. Normal bladder. Small fat-containing bilateral inguinal hernias. Stable appearance of the appendix. No evidence for acute appendicitis. Colonic diverticulosis. No evidence for acute diverticulitis. Fluid-filled colon. Questionable mild thickening within the distal descending colon and proximal sigmoid colon. This raises the possibility of a low-grade colitis. IMPRESSION: 1. Moderate thickening of the gastric antrum with adjacent fat stranding. This favors a nonspecific gastritis. An underlying gastric ulcer is not excluded. However, no perforation identified. Follow-up nonemergent endoscopy recommended for further evaluation. 2. Questionable mild thickening of the distal descending colon and proximal sigmoid colon raising the possibility of a low-grade colitis. 3. Fluid-filled colon suggestive of a diarrheal illness. 4. Small midline supraumbilical hernia containing a knuckle of small bowel. This remains unchanged. No evidence for a bowel obstruction. 5. Additional findings as described above. Resident Activity Tracking Resident Involvement: Resident Care Provided Care Provided: Adult [facility] (5) 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, type 2 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 complication status: without complication 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 usp insulin use: without usp use Qualified Code(s): E11.9 - Type 2 diabetes mellitus without complications
[2023-09-10] MEDS: MAGNESIUM SULFATE / D5W 1 GM/100 ML BAG IV SCH (08:45)
[2023-09-10] MEDS: FAMOTIDINE 20MG IV PUSH 20 MG/5 ML SYR IV SCH (08:52)
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
[2023-09-10] MEDS: SODIUM CHLORIDE 0.9% 500 ML IV ONE ×2 (10:29→12:06)
[2023-09-10] MEDS: ONDANSETRON INJ 2 MG/ML 2 ML VIAL IV SCH (11:05)
[2023-09-10] MEDS: METOCLOPRAMIDE HCL INJ 5 MG/ML 2 ML VIAL IV ONE (11:52)
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
[2023-09-10] MEDS ORDERED: STAT IV Infusion **Titration per Protocol STA (12:59)
[2023-09-10 13:03] LABS: BUN Creatinine Ratio 15.3 (10-20); Calcium 8.1 mg/dl (8.6-10.3); Creatinine Clr Calc Pharmacy 31.5 ml/min; Est GFR (African American) 30.9 ml/min; Est GFR (Non-African American) 26.7 ml/min; Magnesium 2.3 mg/dl (1.7-2.4); Phosphorus 2.2 mg/dl (2.5-4.9); Potassium 3.4 mmol/L (3.5-5.1)
[2023-09-10] MEDS: PHENYLEPHRINE/NSS 25 MG/250 ML BAG IV SCH (13:10)
[2023-09-10] MEDS: metroNIDAZOLE 500 MG/100 ML BAG IV SCH (13:19)
[2023-09-10] MEDS: cefTRIAXone SODIUM 2,000 MG/50 ML BAG IV SCH (13:21)
[2023-09-10 14:00] LABS: iSTAT Allen Test Pass; iSTAT Art Bld Gas pCO2 Correct 30 mmHg (35-46); iSTAT Art Bld Gas pH Corrected 7.373 (7.35-7.45); iSTAT Arterial Blood Gas HCO3 18 meg/L (19-24); iSTAT Arterial Blood Gas pCO2 30 mmHg (35-46); iSTAT Arterial Blood Gas pH 7.37 (7.35-7.45); iSTAT Arterial Blood Gas pO2 74 mmHg (80-95); iSTAT Arterial Blood Gas pO2 C 73; iSTAT Carbon Dioxide 18 mmol/L (24-31); iSTAT Hematocrit 33 % (42-52); iSTAT Hemoglobin 11.2 g/dl (14.0-18.0); iSTAT Potassium 3.3 mmol/L (3.3-5.0); iSTAT Site L Radial; iSTAT Sodium 139 mmol/L (135-144)
[2023-09-10] MEDS: PLASMA-LYTE A 1,000 ML IV SCH (15:12)
[2023-09-10] MEDS: HYDROCORTISONE SOD 100 MG in SYRINGE 0 ML IV STA (18:09)
--- NOTE | 2023-09-10 19:23 | XCELERA ---
[id number]
--- NOTE | 2023-09-10 19:29 | Billing Data ---
Date of Service September 10, 2023 Coding Level of Care Code 04603 SUB INP/OBS CARE
[2023-09-11] MEDS: HYDROCORTISONE SOD 50 MG in SYRINGE 0 ML IV SCH (02:50)
[2023-09-11 04:47] LABS: Basophils # (auto) 0.01 K/uL (0.00-0.20); Basophils % (auto) 0.1 %; Eosinophils # (auto) 0.01 K/uL (0.00-0.50); Eosinophils % (auto) 0.1 %; Hematocrit (blood only) 33.7 % (42.0-52.0); Hemoglobin 11.5 g/dl (14.0-18.0); Immature Granulocytes # (auto) 0.03 K/uL (0.01-0.20); Immature Granulocytes % (auto) 0.4 %; Lymphocytes # (auto) 0.71 K/uL (1.20-3.40); Lymphocytes % (auto) 10.3 %; Mean Corpuscular Hemoglobin 31.9 pg (25.0-34.0); Mean Corpuscular Hgb Conc 34.1 g/dL (32.0-36.0); Mean Corpuscular Volume 93.4 fL (80.0-100.0); Monocytes # (auto) 0.41 K/uL (0.11-0.59); Neutrophils # (auto) 5.71 K/uL (1.40-6.50); Neutrophils % (auto) 83.1 %; Platelet Count 168 K/uL (130-400); RDW Coefficient of Variation 12.9 % (11.5-14.5); RDW Standard Deviation 44.6 fL (36.4-46.3); Red Blood Count 3.61 M/uL (4.70-6.10); White Blood Count 6.88 K/ul (4.8-10.8)
[2023-09-11 04:52] LABS: INR 2.5 (0.9-1.1)
[2023-09-11 05:00] LABS: BUN Creatinine Ratio 12.9 (10-20); Calcium 8.2 mg/dl (8.6-10.3); Creatinine Clr Calc Pharmacy 30.9 ml/min; Est GFR (African American) 30.2 ml/min; Potassium 3.8 mmol/L (3.5-5.1)
--- NOTE | 2023-09-11 07:10 | Hospitalist Progress Note ---
Date of Service September 11, 2023 Assessment & Plan (1) Atrial fibrillation with rapid ventricular response: Plan: Substernal chest pain started 09/07. Presented to the ED. Found to be in a fib with RVR. Troponin peaked at 21.5. Likely in the setting of GI infection/deh ydration. Patient started on dilt drip leading to rate control. PO cardizem was continued with the hopes of weaning off of drip and resuming home dosing. Patient became hypotensive 09/09 requiring vasopressor support in the ICU. BP now acceptable. Rate elevated in the 100s. Resume PO dilt dosing of 30 mg BID per cardiology. Once patient rate control and tolerating PO can anticipate discharge home. dilt 30 mg BID monitor on tele (2) Hypotension: Plan: Patient became hypotensive 09/09. Despite clearly written parameters dilt drip and PO dilt were continued. Patient with minimal response to IVF. Escalated care to ICU status. Vasopressor support was given. Likely hypotensive in setting of excessive calcium channel blockage and hypovolemia. Patient was started on steroids and empiric antibiotics in the ICU. BP now acceptable. As patient significantly improved will discontinue these and continue with supportive care hold lisinopril continue IVF at 80 mL/hr (3) Gastritis: Plan: Patient with nausea and decreased PO intake for about a weak prior to prese ntation. CT with non-specific viral gastritis. No signs of diverticulitis, perforation, or abscess. Procal negative. Lactate < 2. BioFire stool and c. dif negative. Blood cultures with NGTD x 24H. Patient aggressively fluid resuscitated. Antiemetics and acid suppressant. Zofran as needed Famotidine 20 mg IV QAM (4) Sepsis: Plan: Tachypnea + tachycardia + GI source on arrival. Resolved. Patient was started on empiric antibiotics when upgraded to the ICU. Very likely viral gastritis. Would discontinue antibiotics and continue to monitor. (5) JACK (acute kidney injury): Plan: BUN 51, creatinine 2.80 on admit (baseline around 1.4), EGFR 21.7. FeNa 0.3%. Mo st likely pre-renal. Aggressively fluid resuscitated. Continue LR @ 80 mL until appropriate PO intake. IVF @ 80 mL/hr avoid nephrotoxics (6) 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, type 2: Plan: Last A1c 5.6% on 10/29/2022. Diet controlled. Defer on SSI as sugars acceptable. Continue to monitor. monitor (7) Hypertension: Plan: Hold lisinopril. If BP remains stable and creatinine improves can restart. (8) Anxiety: Plan: Continue paroxetine, diazepam (9) Supratherapeutic INR: Plan: Supratherapeutic INR on admission. Warfarin was held. INR 2.5. Give 2 mg today. Depending on INR - resume home dosing. (10) Adrenal insufficiency: Plan: Relative adrenal insufficiency in the setting of shock. AM cortisol ~9. Stress dose of steroids. Would recommend ACTH stimulation testing outpatient after about a month of being off steroids. Continue hydrocortisone 50 mg BID Outpatient f/u as above (11) Back pain: Plan: Chronic condition. OMT may be effective. Can consider while inpatient. Plan Disposition: downgraded to PCU telemetry 09/10 Full code Heart healthy diet, as tolerated VTE PPx: INR 2.5, resume warfarin Admission and Anticipated Discharge Date Admission Date: September 09, 2023 Supervising Physician Co-Signing Physician Notes I personally examined the patient and verified all guerrero points of history and exam, discussed case, and agree with decision making with Dr Singer feeling better still nauseated but PO intake improving, still diarrhea but slowing Vitals noted, in general he is awake and alert pleasant appears surprisingly no distress. HEENT normocephalic atraumatic mucous membranes moist. Abdomen is soft mild diffuse tenderness less than yesterday no guarding rebound or rigidity. Skin without rashes pallor or icterus or diaphoresis. Labs and imaging noted. Shockappears to have been a combination of severe dehydration from his viral gastroenteritis and hypotensive effects from diltiazem for RVR. now doing better. continue gentle IVF since prerenal, continue supportive care, advance diet Acute renal failuredue to dehydrationFeNa c/w prerenal - continue IV fluids Septic appearanceappears predominantly due to viral enteritis and profound dehydration. accentuated by low adrenal state - hydrocortisone replacement, follow- outpt lab w/u to discern ?true adrenal insufficiency A-fibrates now controlled. Chronically anticoagulated on warfarin Subjective Patient significantly improved this morning. Abdominal pain improved. Nausea has improved as well. Still not eating much and has had some diarrhea. No fevers or chills. No SOB. Does have chronic back/neck pain that will move forward to the chest. No SOB, fevers, or chills. Review of Systems Review of Systems: See HPI Physical Exam Physical Exam: Gen: well appearing patient in NAD HEENT: AT NC MMM Resp: CTAB no wheezing no increased work of breathing CV: irregularly irregular tachycardia (100s), no m/r/g clinically well perfused Abd: + BS soft, non-tender, non-distended MSK: no obvious deformities Skin: no rashes or bruising Neuro: alert and oriented Psych: appropriate mood and affect Resident Activity Tracking Resident Involvement: Resident Care Provided Care Provided: Adult Hospital Medicine (6) 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, type 2 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 complication status: without complication 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 roasterman insulin use: without roasterman use Qualified Code(s): E11.9 - Type 2 diabetes mellitus without complications
--- NOTE | 2023-09-11 07:29 | Critical Care Progress Note ---
Date of Service September 11, 2023 Assessment & Plan (1) Hypotension: (2) Gastritis: (3) Diarrhea: (4) Atrial fibrillation with rapid ventricular response: (5) JACK (acute kidney injury): (6) 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, type 2: Plan Reason Critically Ill: 73-year-old male with an extensive past medical history presenting in rapid A-fib and JACK in the setting of symptoms of chest discomfort, abdominal pain, and profound diarrhea. He was transferred to the ICU due to hypotension likely associated with diltiazem. He has been weaned off of pressors. He was found to be relatively adrenally insufficient and started on steroids. Antibiotics were initiated for colitis. NEURO - * CAM ICU: NEGATIVE CARDIAC/VASCULAR - * A-fib with RVR: Currently rate controlled. Now off pressors. Would be very judicious in using any AV rosetta blocking agents. Consideration for digoxin might be appropriate. RESPIRATORY - * Saturating well on room air. GI/NUTRITION - * Gastroenteritis: Complete course of Rocephin and Flagyl. If he has continued issues, consider outpatient GI evaluation for potential colonoscopy. RENAL/LYTES - * JACK on CKD 3: Patient has received adequate fluids. Will discontinue IV fluids at this point in time as he is taking adequate p.o. May need outpatient nephrology follow-up - * Okay to discontinue Winter ENDO - continue glycemic control. The patient has been initiated on empiric steroids for adrenal insufficiency. Wean to off over the next few days. * DMII * BSGs per unit protocol. ISS --> gtt per unit policy. HEME - * Stable H&H * Coumadin per primary service ID - * Will cover for possible GI sources of infection resulting in profound hypotension and sepsis syndrome. * Will cover with Rocephin and Flagyl in the critically ill patient. LINES/IV ACCESS - * PIVs x2 * Winter catheter DVT PROPHYLAXIS - * Hold on anticoagulation the patient with a supratherapeutic INR of 5.0. * SCDs Patient is stable off pressors. He is okay to return to the floor. Critical care services will sign off. Feel free to contact us with questions or concerns Admission and Anticipated Discharge Date Admission Date: September 09, 2023 Subjective Patient seen and examined. EMR reviewed. The patient reports he is doing well. He continues to have some crampy lower abdominal pain and intermittent diarrhea. He is not having any nausea or vomiting. He is tolerating a diet. He has had some subxiphoid chest discomfort which has been present for several weeks. It is not exacerbated by activity. He denies any other palpitations. No lower extremity edema. He denies fevers chills night sweats or other constitutional symptoms. Review of Systems Review of Systems: All systems reviewed & are unremarkable except as noted in Subjective Physical Exam Constitutional: WD/WN, vitals as above Neck: trachea midline, no thyromegaly Respiratory: normal respiratory effort, lungs clear to auscultation Cardiovascular: RRR, no murmur, no edema Gastrointestinal (Abdomen): normal bowel sounds, soft, nontender, no hepatosplenomegaly Musculoskeletal: Extremities: extremities normal to inspection Skin: no rashes, warm and dry Neurologic: Nonfocal exam Lymphatic: no cervical lymphadenopathy Results & Data Results & Data Vital Signs (Past 12 Hours) Vital Signs Temp Pulse Pulse Resp BP BP Pulse Ox 09/11/23 06:31 108 H 15 98/78 L 91 09/11/23 05:13 94 H 16 128/86 93 09/11/23 04:15 101 H 15 119/80 92 09/11/23 04:00 36.8 C 93 H 15 108/66 92 09/11/23 04:00 09/11/23 03:45 95 H 15 95/74 L 92 09/11/23 03:30 106 H 15 111/68 92 09/11/23 03:15 93 H 15 131/91 93 09/11/23 03:00 94 H 15 147/119 H 93 09/11/23 02:45 98 H 15 149/103 H 92 09/11/23 02:30 95 H 15 185/115 H 92 09/11/23 02:00 90 15 93 09/11/23 01:45 86 15 119/92 92 09/11/23 01:30 94 H 15 119/94 92 09/11/23 01:15 92 H 15 122/87 93 09/11/23 01:00 96 H 15 120/95 93 09/11/23 00:45 97 H 15 132/93 93 09/11/23 00:30 97 H 15 123/87 92 09/11/23 00:15 92 H 15 122/87 93 09/11/23 00:00 90 15 117/81 92 09/11/23 00:00 36.9 C 09/11/23 00:00 09/11/23 00:00 99 H 09/10/23 23:45 117/81 09/10/23 23:45 94 H 7 L 89 L 09/10/23 23:30 116/81 09/10/23 23:30 87 0 L 09/10/23 23:15 98 H 22 89 L 09/10/23 23:15 125/91 09/10/23 23:00 91 H 22 90 09/10/23 23:00 124/74 09/10/23 22:46 96 H 21 90 09/10/23 22:45 117/85 09/10/23 22:44 92 H 22 90 09/10/23 22:30 119/81 09/10/23 22:30 91 H 23 90 09/10/23 22:16 14 97 09/10/23 22:16 99/56 L 09/10/23 22:15 92 H 18 90 09/10/23 22:00 96 H 22 90 09/10/23 22:00 115/87 09/10/23 21:59 86 21 91 09/10/23 21:30 116/78 09/10/23 21:30 98 H 22 89 L 09/10/23 21:15 110/85 09/10/23 21:15 95 H 20 09/10/23 21:00 118/73 09/10/23 21:00 102 H 13 89 L 09/10/23 20:46 102 H 13 88 L 09/10/23 20:45 110/82 09/10/23 20:44 94 H 17 88 L 09/10/23 20:30 109/69 09/10/23 20:30 89 16 89 L 09/10/23 20:15 117/73 09/10/23 20:15 92 H 18 90 09/10/23 20:01 122/80 09/10/23 20:01 94 H 28 H 95 09/10/23 20:00 89 18 96 09/10/23 19:45 124/88 09/10/23 19:45 87 13 92 09/10/23 19:30 85 15 94 09/10/23 19:30 123/83 Pulse Ox O2 Del Method O2 Del Method 09/11/23 06:31 Room Air 09/11/23 05:13 Room Air 09/11/23 04:15 Room Air 09/11/23 04:00 Room Air 09/11/23 04:00 92 Room Air 09/11/23 03:45 Room Air 09/11/23 03:30 Room Air 09/11/23 03:15 Room Air 09/11/23 03:00 Room Air 09/11/23 02:45 Room Air 09/11/23 02:30 Room Air 09/11/23 02:00 Room Air 09/11/23 01:45 Room Air 09/11/23 01:30 Room Air 09/11/23 01:15 Room Air 09/11/23 01:00 Room Air 09/11/23 00:45 Room Air 09/11/23 00:30 Room Air 09/11/23 00:15 Room Air 09/11/23 00:00 Room Air 09/11/23 00:00 09/11/23 00:00 92 Room Air 09/11/23 00:00 09/10/23 23:45 09/10/23 23:45 09/10/23 23:30 09/10/23 23:30 09/10/23 23:15 09/10/23 23:15 09/10/23 23:00 09/10/23 23:00 09/10/23 22:46 09/10/23 22:45 09/10/23 22:44 09/10/23 22:30 09/10/23 22:30 09/10/23 22:16 09/10/23 22:16 09/10/23 22:15 09/10/23 22:00 09/10/23 22:00 09/10/23 21:59 09/10/23 21:30 09/10/23 21:30 09/10/23 21:15 09/10/23 21:15 09/10/23 21:00 09/10/23 21:00 09/10/23 20:46 09/10/23 20:45 09/10/23 20:44 09/10/23 20:30 09/10/23 20:30 09/10/23 20:15 09/10/23 20:15 09/10/23 20:01 09/10/23 20:01 09/10/23 20:00 09/10/23 19:45 09/10/23 19:45 09/10/23 19:30 09/10/23 19:30 Critical Care Results & Data Vital Signs (Past 12 Hours) Vital Signs Temp Pulse Pulse Resp BP BP Pulse Ox 09/11/23 06:31 108 H 15 98/78 L 91 09/11/23 05:13 94 H 16 128/86 93 09/11/23 04:15 101 H 15 119/80 92 09/11/23 04:00 36.8 C 93 H 15 108/66 92 09/11/23 04:00 09/11/23 03:45 95 H 15 95/74 L 92 09/11/23 03:30 106 H 15 111/68 92 09/11/23 03:15 93 H 15 131/91 93 09/11/23 03:00 94 H 15 147/119 H 93 09/11/23 02:45 98 H 15 149/103 H 92 09/11/23 02:30 95 H 15 185/115 H 92 09/11/23 02:00 90 15 93 09/11/23 01:45 86 15 119/92 92 09/11/23 01:30 94 H 15 119/94 92 09/11/23 01:15 92 H 15 122/87 93 09/11/23 01:00 96 H 15 120/95 93 09/11/23 00:45 97 H 15 132/93 93 09/11/23 00:30 97 H 15 123/87 92 09/11/23 00:15 92 H 15 122/87 93 09/11/23 00:00 90 15 117/81 92 09/11/23 00:00 36.9 C 09/11/23 00:00 09/11/23 00:00 99 H 09/10/23 23:45 117/81 09/10/23 23:45 94 H 7 L 89 L 09/10/23 23:30 116/81 09/10/23 23:30 87 0 L 09/10/23 23:15 98 H 22 89 L 09/10/23 23:15 125/91 09/10/23 23:00 91 H 22 90 09/10/23 23:00 124/74 09/10/23 22:46 96 H 21 90 09/10/23 22:45 117/85 09/10/23 22:44 92 H 22 90 09/10/23 22:30 119/81 09/10/23 22:30 91 H 23 90 09/10/23 22:16 14 97 09/10/23 22:16 99/56 L 09/10/23 22:15 92 H 18 90 09/10/23 22:00 96 H 22 90 09/10/23 22:00 115/87 09/10/23 21:59 86 21 91 09/10/23 21:30 116/78 09/10/23 21:30 98 H 22 89 L 09/10/23 21:15 110/85 09/10/23 21:15 95 H 20 09/10/23 21:00 118/73 09/10/23 21:00 102 H 13 89 L 09/10/23 20:46 102 H 13 88 L 09/10/23 20:45 110/82 09/10/23 20:44 94 H 17 88 L 09/10/23 20:30 109/69 09/10/23 20:30 89 16 89 L 09/10/23 20:15 117/73 09/10/23 20:15 92 H 18 90 09/10/23 20:01 122/80 09/10/23 20:01 94 H 28 H 95 09/10/23 20:00 89 18 96 09/10/23 19:45 124/88 09/10/23 19:45 87 13 92 Pulse Ox O2 Del Method O2 Del Method 09/11/23 06:31 Room Air 09/11/23 05:13 Room Air 09/11/23 04:15 Room Air 09/11/23 04:00 Room Air 09/11/23 04:00 92 Room Air 09/11/23 03:45 Room Air 09/11/23 03:30 Room Air 09/11/23 03:15 Room Air 09/11/23 03:00 Room Air 09/11/23 02:45 Room Air 09/11/23 02:30 Room Air 09/11/23 02:00 Room Air 09/11/23 01:45 Room Air 09/11/23 01:30 Room Air 09/11/23 01:15 Room Air 09/11/23 01:00 Room Air 09/11/23 00:45 Room Air 09/11/23 00:30 Room Air 09/11/23 00:15 Room Air 09/11/23 00:00 Room Air 09/11/23 00:00 09/11/23 00:00 92 Room Air 09/11/23 00:00 09/10/23 23:45 09/10/23 23:45 09/10/23 23:30 09/10/23 23:30 09/10/23 23:15 09/10/23 23:15 09/10/23 23:00 09/10/23 23:00 09/10/23 22:46 09/10/23 22:45 09/10/23 22:44 09/10/23 22:30 09/10/23 22:30 09/10/23 22:16 09/10/23 22:16 09/10/23 22:15 09/10/23 22:00 09/10/23 22:00 09/10/23 21:59 09/10/23 21:30 09/10/23 21:30 09/10/23 21:15 09/10/23 21:15 09/10/23 21:00 09/10/23 21:00 09/10/23 20:46 09/10/23 20:45 09/10/23 20:44 09/10/23 20:30 09/10/23 20:30 09/10/23 20:15 09/10/23 20:15 09/10/23 20:01 09/10/23 20:01 09/10/23 20:00 09/10/23 19:45 09/10/23 19:45 Lab & Micro Results (Past 24 Hours) RBC 3.61 M/uL (4.70-6.10) L 09/11/23 WBC 6.88 K/ul (4.8-10.8) 09/11/23 Hgb 11.5 g/dl (14.0-18.0) L 09/11/23 Hct 33.7 % (42.0-52.0) L 09/11/23 MCV 93.4 fL (80.0-100.0) 09/11/23 MCH 31.9 pg (25.0-34.0) 09/11/23 MCHC 34.1 g/dL (32.0-36.0) 09/11/23 RDW Standard Deviation 44.6 fL (36.4-46.3) 09/11/23 RDW Coefficient of Variation 12.9 % (11.5-14.5) 09/11/23 Plt Count 168 K/uL (130-400) 09/11/23 MPV 10.0 fL (9.4-12.4) 09/11/23 Neutrophils (%) (Auto) 83.1 % 09/11/23 Lymphocytes (%) (Auto) 10.3 % 09/11/23 Monocytes # (Auto) 0.41 K/uL (0.11-0.59) 09/11/23 Eosinophils # (Auto) 0.01 K/uL (0.00-0.50) 09/11/23 Immature Granulocyte % (Auto) 0.4 % 09/11/23 Neutrophils # (Auto) 5.71 K/uL (1.40-6.50) 09/11/23 Lymphocytes # (Auto) 0.71 K/uL (1.20-3.40) L 09/11/23 Monocytes # (Auto) 0.41 K/uL (0.11-0.59) 09/11/23 Eosinophils # (Auto) 0.01 K/uL (0.00-0.50) 09/11/23 Basophils # (Auto) 0.01 K/uL (0.00-0.20) 09/11/23 Immature Granulocyte # (Auto) 0.03 K/uL (0.01-0.20) 4 Na 139 mmol/L (136-145) 09/11/23 K 3.8 mmol/L (3.5-5.1) 09/11/23 Cl 110 mmol/L (98-107) H 09/11/23 CO2 21 mmol/L (21-32) 09/11/23 Anion Gap 8 (3-11) 09/11/23 BUN 31 mg/dl (6-23) H 09/11/23 Creatinine 2.41 mg/dl (0.6-1.4) H 09/11/23 Estimated GFR ( Amer) 30.2 ml/min 09/11/23 Estimated GFR (Non-Af Amer) 26.0 ml/min 09/11/23 BUN/Creatinine Ratio 12.9 (10-20) 09/11/23 Glu 135 mg/dl (70-99(Fasting)) H 09/11/23 Ca 8.2 mg/dl (8.6-10.3) L 09/11/23 Phosphorus Level 2.2 mg/dl (2.5-4.9) L 09/10/23 Mg 2.3 mg/dl (1.7-2.4) 09/10/23 12:21 Calcium Level 8.2 mg/dl (8.6-10.3) L 09/11/23 04:20 Prothromb Time International Ratio 2.5 (0.9-1.1) H 09/11/23 04 :20 Hugo Test Pass 09/10/23 13:47 Microbiology 09/09/23 17:45 Aerobic Blood Culture - Preliminary Blood No growth in Aerobic bottle after 24 hours. Anaerobic Blood Culture - Preliminary No growth in Anaerobic bottle after 24 hours. 09/09/23 17:45 Aerobic Blood Culture - Preliminary Blood No growth in Aerobic bottle after 24 hours. Anaerobic Blood Culture - Preliminary No growth in Anaerobic bottle after 24 hours. I & O Totals 24 Hours 09/10/23 09/11/23 09/12/23 06:59 06:59 06:59 Intake Total 4134.167 / 4134.167 4200.996 / 4200.996 Output Total 677 / 677 Balance 4131.167 / 4131.167 3523.996 / 3523.996 Cumulative 09/09/23 13:26 thru 09/11/23 06:36 Intake Total 8335.163 Output Total 680 Balance 7655.163 RT Ventilator Mngmt (Last Documented) Ventilator Ordered Settings Respiratory Rate 15 09/11/23 06:31 Ventilator - PT Measurements Respiratory Rate 15 Coding Level of Care Code 74517 SUB INP/OBS CARE 3/50MIN Diagnoses Hypotension I95.9 Gastritis K29.70 Diarrhea R19.7 Atrial fibrillation with rapid ventricular response I48.91 JACK (acute kidney injury) N17.9 Type 2 diabetes mellitus without complication, without long-term current use of insulin E11.9 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
--- NOTE | 2023-09-11 08:49 | Cardiology Progress Note ---
Date of Service September 11, 2023 Assessment & Plan Admission and Anticipated Discharge Date Admission Date: September 09, 2023 Subjective He has a multitude of complaints although none of them seem significant. He had chronic chest discomfort since he has been in the hospital. He complained of some mild shortness of breath but appeared comfortable talking in sentences. Although he noted he is having significant diarrhea the nurse notes he had 1 bowel movement last night and another 1 this morning. He is unaware of any palpitations or fluttering. He is unaware that he is in atrial fibrillation. Results & Data Vital Signs (Past 12 Hours) Vital Signs Temp Pulse Pulse Resp BP BP Pulse Ox 09/11/23 08:01 101 H 15 93 09/11/23 08:01 154/92 H 09/11/23 08:00 100 H 20 96 09/11/23 08:00 100 H 09/11/23 07:46 141/86 H 09/11/23 07:46 105 H 14 90 09/11/23 07:30 96 H 22 93 09/11/23 07:16 101 H 11 L 91 09/11/23 07:16 97/68 L 09/11/23 07:08 96 H 21 92 09/11/23 06:31 108 H 15 98/78 L 91 09/11/23 05:13 94 H 16 128/86 93 09/11/23 04:15 101 H 15 119/80 92 09/11/23 04:00 36.8 C 93 H 15 108/66 92 09/11/23 04:00 09/11/23 03:45 95 H 15 95/74 L 92 09/11/23 03:30 106 H 15 111/68 92 09/11/23 03:15 93 H 15 131/91 93 09/11/23 03:00 94 H 15 147/119 H 93 09/11/23 02:45 98 H 15 149/103 H 92 09/11/23 02:30 95 H 15 185/115 H 92 09/11/23 02:00 90 15 93 09/11/23 01:45 86 15 119/92 92 09/11/23 01:30 94 H 15 119/94 92 09/11/23 01:15 92 H 15 122/87 93 09/11/23 01:00 96 H 15 120/95 93 09/11/23 00:45 97 H 15 132/93 93 09/11/23 00:30 97 H 15 123/87 92 09/11/23 00:15 92 H 15 122/87 93 09/11/23 00:00 90 15 117/81 92 09/11/23 00:00 36.9 C 09/11/23 00:00 09/11/23 00:00 99 H 09/10/23 23:45 117/81 09/10/23 23:45 94 H 7 L 89 L 09/10/23 23:30 116/81 09/10/23 23:30 87 0 L 09/10/23 23:15 98 H 22 89 L 09/10/23 23:15 125/91 09/10/23 23:00 91 H 22 90 09/10/23 23:00 124/74 09/10/23 22:46 96 H 21 90 09/10/23 22:45 117/85 09/10/23 22:44 92 H 22 90 09/10/23 22:30 119/81 09/10/23 22:30 91 H 23 90 09/10/23 22:16 14 97 09/10/23 22:16 99/56 L 09/10/23 22:15 92 H 18 90 09/10/23 22:00 96 H 22 90 09/10/23 22:00 115/87 09/10/23 21:59 86 21 91 09/10/23 21:30 116/78 09/10/23 21:30 98 H 22 89 L 09/10/23 21:15 110/85 09/10/23 21:15 95 H 20 09/10/23 21:00 118/73 09/10/23 21:00 102 H 13 89 L 09/10/23 20:46 102 H 13 88 L Pulse Ox O2 Del Method O2 Del Method 09/11/23 08:01 Room Air 09/11/23 08:01 09/11/23 08:00 Room Air 09/11/23 08:00 09/11/23 07:46 09/11/23 07:46 Room Air 09/11/23 07:30 Room Air 09/11/23 07:16 Room Air 09/11/23 07:16 09/11/23 07:08 Room Air 09/11/23 06:31 Room Air 09/11/23 05:13 Room Air 09/11/23 04:15 Room Air 09/11/23 04:00 Room Air 09/11/23 04:00 92 Room Air 09/11/23 03:45 Room Air 09/11/23 03:30 Room Air 09/11/23 03:15 Room Air 09/11/23 03:00 Room Air 09/11/23 02:45 Room Air 09/11/23 02:30 Room Air 09/11/23 02:00 Room Air 09/11/23 01:45 Room Air 09/11/23 01:30 Room Air 09/11/23 01:15 Room Air 09/11/23 01:00 Room Air 09/11/23 00:45 Room Air 09/11/23 00:30 Room Air 09/11/23 00:15 Room Air 09/11/23 00:00 Room Air 09/11/23 00:00 09/11/23 00:00 92 Room Air 09/11/23 00:00 09/10/23 23:45 09/10/23 23:45 09/10/23 23:30 09/10/23 23:30 09/10/23 23:15 09/10/23 23:15 09/10/23 23:00 09/10/23 23:00 09/10/23 22:46 09/10/23 22:45 09/10/23 22:44 09/10/23 22:30 09/10/23 22:30 09/10/23 22:16 09/10/23 22:16 09/10/23 22:15 09/10/23 22:00 09/10/23 22:00 09/10/23 21:59 09/10/23 21:30 09/10/23 21:30 09/10/23 21:15 09/10/23 21:15 09/10/23 21:00 09/10/23 21:00 09/10/23 20:46 AAO x3 HEENT: 2+ carotids Lungs: Clear to auscultation bilaterally Heart: Irregular rate and rhythm; No murmurs Extremity: No clubbing cyanosis or edema Assessment & Plan (1) Atrial fibrillation with rapid ventricular response: Impression: 1. Afib with RVR 2. Sepsis 3. Hypertension 4. Dyslipidemia 5. Echocardiogram [facility] 2022 showing normal LVEF, borderline left atrial enlargement, RVSP of 30 to 40 mmHg, borderline aortic root dilatation, no significant valvular disease 6. Chronic kidney disease 7. Viral GI infection Is currently off pressors. His heart rate remains fast in atrial fibrillation. He is completely asymptomatic from his A-fib denying any palpitations or fluttering. For now would continue with a rate control strategy. I would add diltiazem 30 mg twice daily. Hopefully by slowing his heart rate down it increases his diastolic filling. Which ultimately increases his stroke-volume and improves his blood pressure. In discussing with the nurses he is not having much in the way of diarrhea and did have a pretty decent urine output this morning. Long-term he cannot afford DOACs and therefore has been on Coumadin with a goal INR of 2-3. His INR today is much better. We know his LV function is normal. He is complaining of some mild shortness of breath although his lungs are clear. He did just receive aggressive fluid resuscitation yesterday. Hopefully as his renal function continues to improve he will diurese on his own. If not heaping can be given 20 mg of IV Lasix to help facilitate diuresis. Will continue to follow. All this was discussed with the nursing staff.
[2023-09-11] MEDS: FLUDROCORTISONE ACETATE 0.1 MG TAB PO SCH (09:06)
[2023-09-11] MEDS: LACTATED RINGER'S 1,000 ML IV SCH (10:48)
[2023-09-11 10:55] LABS: Appearance Urine Cloudy (Clear); Bacteria Urine Automated None Seen (None Seen); Bilirubin Urine Negative (Negative); Blood Urine 2+ (Negative); Color Urine Yellow; Glucose Urine UA 2+ (Negative); Granular Casts Urine Present /lpf (None Prsent); Hyaline Casts Urine Present /lpf (None Presnt); Ketones Urine Negative (Negative); Leukocyte Esterase Urine Trace (Negative); Nitrite Urine Negative (Negative); Protein Urine 2+ (Negative); RBC Urine Automated 0-2 /hpf (0-2); Specific Gravity Urine 1.023 (1.000-1.030); Urobilinogen Urine Negative (Negative); WBC Urine Automated 0-5 /hpf (0-5); pH Urine 5.5 (4.5-7.5)
[2023-09-11 11:09] LABS: Creatinine Urine Random 152.4 mg/dl
[2023-09-11] MEDS: WARFARIN SOD 2 MG TAB PO ONE (15:47)
--- NOTE | 2023-09-11 16:18 | Billing Data ---
Date of Service September 11, 2023 Coding Level of Care Code 90912 SUB INP/OBS CARE
[2023-09-11] MEDS: HYDROCORTISONE 10 MG TAB PO SCH (16:53)
[2023-09-12 05:10] LABS: Basophils # (auto) 0.01 K/uL (0.00-0.20); Basophils % (auto) 0.1 %; Hematocrit (blood only) 31.3 % (42.0-52.0); Hemoglobin 10.7 g/dl (14.0-18.0); Immature Granulocytes # (auto) 0.04 K/uL (0.01-0.20); Immature Granulocytes % (auto) 0.5 %; Lymphocytes # (auto) 0.86 K/uL (1.20-3.40); Lymphocytes % (auto) 11.2 %; Mean Corpuscular Hemoglobin 31.4 pg (25.0-34.0); Mean Corpuscular Hgb Conc 34.2 g/dL (32.0-36.0); Mean Corpuscular Volume 91.8 fL (80.0-100.0); Mean Platelet Volume 10.3 fL (9.4-12.4); Monocytes % (auto) 7.8 %; Neutrophils % (auto) 80.4 %; Platelet Count 167 K/uL (130-400); RDW Coefficient of Variation 12.6 % (11.5-14.5); RDW Standard Deviation 42.1 fL (36.4-46.3); Red Blood Count 3.41 M/uL (4.70-6.10); White Blood Count 7.71 K/ul (4.8-10.8)
[2023-09-12 05:14] LABS: INR 1.8 (0.9-1.1); Prothrombin Time 18.2 Seconds (9.0-12.0)
[2023-09-12 05:25] LABS: BUN Creatinine Ratio 14.4 (10-20); Calcium 8.5 mg/dl (8.6-10.3); Creatinine Clr Calc Pharmacy 39.2 ml/min; Est GFR (African American) 35.8 ml/min; Est GFR (Non-African American) 30.9 ml/min; Potassium 3.6 mmol/L (3.5-5.1)
[2023-09-12] MEDS: ONDANSETRON INJ 2 MG/ML 2 ML VIAL IV PRN (05:29)
[2023-09-12] MEDS: PROCHLORPERAZINE 5 MG in SYRINGE 4 ML IV ONE (09:50)
--- NOTE | 2023-09-12 11:03 | Hospitalist Progress Note ---
Date of Service September 12, 2023 Assessment & Plan (1) Atrial fibrillation with rapid ventricular response: Plan: Substernal chest pain started 09/07. Presented to the ED. Found to be in a fib with RVR. Troponin peaked at 21.5. Likely in the setting of GI infection/dehydration. Patient started on dilt drip leading to rate control. PO cardizem was continued with the hopes of weaning off of drip and resuming home dosing. Patient became hypotensive 09/09 requiring vasopressor support in the ICU. BP now acceptable. Rate elevated in the 100s. Per cardiology increase to dilt 30 mg TID. Once patient rate control and tolerating PO can anticipate discharge home. dilt 30 mg TID monitor on tele (2) Hypotension: Plan: Patient became hypotensive 09/09. Despite clearly written parameters dilt drip and PO dilt were continued. Patient with minimal response to IVF. Escalated care to ICU status. Vasopressor support was given. Likely hypotensive in setting of excessive calcium channel blockage and hypovolemia. Patient was started on steroids and empiric antibiotics in the ICU. BP now acceptable. As patient significantly improved will discontinue these and continue with supportive care hold lisinopril adjust IVF as PO intake increases (3) Gastritis: Plan: Patient with nausea and decreased PO intake for about a weak prior to presentation. CT with non-specific viral gastritis. No signs of diverticulitis, perforation, or abscess. Procal negative. Lactate < 2. BioFire stool and c. dif negative. Blood cultures with NGTD x 24H. Patient aggressively fluid resuscitated. Antiemetics and acid suppressant. Concern for peptic ulcer disease. Zofran as needed Started PPI BID, H2 segundo BID, and carafate QID (4) Sepsis: Plan: Tachypnea + tachycardia + GI source on arrival. Resolved. Patient was started on empiric antibiotics when upgraded to the ICU. Very likely viral gastritis. Would discontinue antibiotics and continue to monitor. (5) JACK (acute kidney injury): Plan: BUN 51, creatinine 2.80 on admit (baseline around 1.4), EGFR 21.7. FeNa 0.3%. Most likely pre-renal. Aggressively fluid resuscitated. Continue LR @ 80 mL until appropriate PO intake. IVF @ 80 mL/hr avoid nephrotoxics (6) 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, type 2: Plan: Last A1c 5.6% on 10/29/2022. Diet controlled. Defer on SSI as sugars acceptable. Continue to monitor. monitor (7) Hypertension: Plan: Hold lisinopril. If BP remains stable and creatinine improves can restart. (8) Anxiety: Plan: Continue paroxetine, diazepam (9) Supratherapeutic INR: Plan: Supratherapeutic INR on admission. Warfarin was held. INR 2.5. Give 2 mg today. Depending on INR - resume home dosing. (10) Adrenal insufficiency: Plan: Relative adrenal insufficiency in the setting of shock. AM cortisol ~9. Stress dose of steroids. Would recommend ACTH stimulation testing outpatient after about a month of being off steroids. Continue hydrocortisone 50 mg BID Outpatient f/u as above (11) Back pain: Plan: Chronic condition. OMT may be effective. Can consider while inpatient. Plan Disposition: downgraded to PCU telemetry 09/10 Full code Heart healthy diet, as tolerated VTE PPx: INR 2.5, resume warfarin Admission and Anticipated Discharge Date Admission Date: September 09, 2023 Supervising Physician Co-Signing Physician Notes I personally examined the patient and verified all guerrero points of history and exam, discussed case, and agree with decision making with Dr Singer Upper GI complaints really about the same may be slightly worseis able to eat a little, but not really well. Still has a lot of nausea and upper stomach/lower chest pain that are really no better, may be slightly worse. Diarrhea has slowed. Vitals noted, in general he is awake and alert pleasant no distress. HEENT normocephalic atraumatic mucous membranes moist. Abdomen soft without guarding rebound or rigidity but he does have epigastric tenderness and a little bit of substernal tenderness reproducible to palpation, similar to the last few days. Possible peptic ulcer diseasewhile initially he came in with a severe enough viral enteritis to appear consistent with sepsis and had profound dehydration, and that certainly would have been enough to explain his upper GI symptoms, at this point his infectious symptoms appear to be improving, he is better hydrated, overall doing better, but his upper GI symptoms have remained static or may be slightly worsenedI have high suspicion for peptic ulcer disease now. Escalate acid suppressiontwice daily Pepcid, twice daily Protonix, 4 times daily Carafate. Follow closely. While his hemoglobin is down a little, I suspect this is more likely dilution than bleeding given his improved hemodynamics and reduced diarrhea. Shockappears to have been a combination of severe dehydration from his viral gastroenteritis and hypotensive effects from diltiazem for RVR. now doing better. Resolved Acute renal failuredue to dehydrationFeNa c/w prerenal - continue IV fluids, improved Septic appearanceappears predominantly due to viral enteritis and profound dehydration. accentuated by low adrenal state - hydrocortisone replacement, follow- outpt lab w/u to discern ?true adrenal insufficiencywill slowly start to wean down hydrocortisone in the coming days A-fibrates now controlled. Chronically anticoagulated on warfarin (the fact that he is anticoagulated and does not have overt bleeding also pleads against his drop in hemoglobin actually being hemorrhage) Subjective Patient reports epigastric abdominal pain today. Does have some diffuse abdominal pain and nausea as well. No fevers or chills. No hematochezia or emesis. Review of Systems 2 Review of Systems: See HPI Physical Exam 2 Physical Exam: Gen: well appearing patient in NAD HEENT: AT NC MMM Resp: CTAB no wheezing no increased work of breathing CV: irregularly irregular tachycardia (100s), no m/r/g clinically well perfused Abd: + BS soft, mildly tender diffusely, non-distended MSK: no obvious deformities Skin: no rashes or bruising Neuro: alert and oriented Psych: appropriate mood and affect Results & Data Results & Data Vital Signs (Past 12 Hours) Vital Signs Temp Pulse Pulse Resp BP BP Pulse Ox 09/12/23 08:00 36.4 C L 100 H 18 123/91 92 09/12/23 08:00 87 09/12/23 04:01 102 H 13 95 09/12/23 04:01 132/94 09/12/23 04:00 82 13 87 L 09/12/23 04:00 36.8 C 09/12/23 02:00 99 H 21 88 L 09/12/23 00:20 36.8 C 09/12/23 00:00 95 H 16 96 09/12/23 00:00 109/85 09/12/23 00:00 99 H O2 Del Method 09/12/23 08:00 Room Air 09/12/23 08:00 09/12/23 04:01 09/12/23 04:01 09/12/23 04:00 09/12/23 04:00 09/12/23 02:00 09/12/23 00:20 09/12/23 00:00 09/12/23 00:00 09/12/23 00:00 Laboratory Results 09/12/23 04:17 09/12/23 04:17 Resident Activity Tracking Resident Involvement: Resident Care Provided Care Provided: Adult Hospital Medicine (6) 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, type 2 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 complication status: without complication 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 long term care phlebotomist insulin use: without group home use Qualified Code(s): E11.9 - Type 2 diabetes mellitus without complications
[2023-09-12] MEDS: SUCRALFATE 1 GM TAB PO SCH (12:20)
[2023-09-12] MEDS: PANTOprazole 40 MG in SYRINGE 0 ML IV SCH (12:21)
--- NOTE | 2023-09-12 12:48 | Billing Data ---
Date of Service September 12, 2023 Coding Level of Care Code 71539 SUB INP/OBS CARE
--- NOTE | 2023-09-12 13:42 | Cardiology Progress Note ---
Date of Service September 12, 2023 Assessment & Plan (1) Atrial fibrillation with rapid ventricular response: Plan: Impression: 1. Afib with RVR 2. Sepsis 3. Hypertension 4. Dyslipidemia 5. Echocardiogram Bernadine Ortega 2022 showing normal LVEF, borderline left atr ial enlargement, RVSP of 30 to 40 mmHg, borderline aortic root dilatation, no significant valvular disease 6. Chronic kidney disease Mr. Coleman's heart rate is mildly tachycardic, still in afib. I increased his diltiazem to three times a day from two. His blood pressure is stable. Mr. Coleman was not receptive to Coumadin teaching by the nurse overnight, apparently telling her she was not smart enough to give him education on it. I discussed that he needs to be in communication with the anticoagulation clinic for regular INR testing. His last INR that I can find was May which I told him was far too long to go without lab work while on Coumadin. He was unreceptive to the idea that he needed to have tighter control of his INRs so he doesn't have a bleed or a stroke. We don't have a great answer to this problem. He can't afford DOACs and taking him off of Coumadin will put him at risk for stroke. I recommended he call the anticoagulation clinic at discharge for further guidance on next INR lab work. I do not think his chest pain is cardiac as it has been pretty constant since admission with no exacerbating or relieving factors. He describes it as a burning that goes through his back and stomach as well which would be atypical for angina. If he feels ok walking the halls and his heart rate is staying around 110 or lower, we can can continue to work on his heart rates in an outpatient setting and he can be discharged when ok with the hospitalists. This was discussed with the hospitalist. Admission and Anticipated Discharge Date Admission Date: September 09, 2023 Subjective Mr. Coleman continues to complain of abdominal pain. He notes chest pain has been constant since presenting to the hospital. He is not having any sob. No edema. He is still in afib on the monitor. No events overnight. His blood pressure is improved. Review of Systems Review of Systems: All systems reviewed & are unremarkable except as noted in HPI & below Physical Exam Constitutional: WD/WN, vitals as above Respiratory: normal respiratory effort, lungs clear to auscultation Cardiovascular: Rate/Rhythm: + abnormal rate and + abnormal rhythm Heart Sounds: no murmur Extremities: no edema Skin: no rashes, warm and dry Neurologic: moves all extremities and awake Psychiatric: A+Ox3, euthymic affect Results & Data Vital Signs (Past 12 Hours) Vital Signs Temp Pulse Pulse Resp BP BP Pulse Ox 09/12/23 12:01 117 H 31 H 89 L 09/12/23 12:01 117/81 09/12/23 12:00 110 H 23 117/81 93 09/12/23 11:00 90 19 93 09/12/23 08:00 36.4 C L 100 H 18 123/91 92 09/12/23 08:00 87 09/12/23 04:01 102 H 13 95 09/12/23 04:01 132/94 09/12/23 04:00 82 13 87 L 09/12/23 04:00 36.8 C 09/12/23 02:00 99 H 21 88 L O2 Del Method 09/12/23 12:01 09/12/23 12:01 09/12/23 12:00 09/12/23 11:00 09/12/23 08:00 Room Air 09/12/23 08:00 09/12/23 04:01 09/12/23 04:01 09/12/23 04:00 09/12/23 04:00 09/12/23 02:00
[2023-09-12] MEDS: dilTIAZem HCL 30 MG TAB PO SCH (15:02)
[2023-09-12] MEDS: WARFARIN SOD 1.25 MG TAB PO SCH (15:02)
[2023-09-12] MEDS: FAMOTIDINE 20MG IV PUSH 20 MG/5 ML SYR IV SCH (20:54)
[2023-09-13 05:11] LABS: Basophils # (auto) 0.01 K/uL (0.00-0.20); Basophils % (auto) 0.1 %; Eosinophils # (auto) 0.02 K/uL (0.00-0.50); Eosinophils % (auto) 0.2 %; Hematocrit (blood only) 32.3 % (42.0-52.0); Hemoglobin 11.1 g/dl (14.0-18.0); Immature Granulocytes # (auto) 0.05 K/uL (0.01-0.20); Immature Granulocytes % (auto) 0.5 %; Lymphocytes # (auto) 0.87 K/uL (1.20-3.40); Lymphocytes % (auto) 9.1 %; Mean Corpuscular Hemoglobin 31.4 pg (25.0-34.0); Mean Corpuscular Hgb Conc 34.4 g/dL (32.0-36.0); Mean Corpuscular Volume 91.5 fL (80.0-100.0); Mean Platelet Volume 10.2 fL (9.4-12.4); Monocytes # (auto) 0.81 K/uL (0.11-0.59); Monocytes % (auto) 8.4 %; Neutrophils # (auto) 7.85 K/uL (1.40-6.50); Neutrophils % (auto) 81.7 %; Platelet Count 168 K/uL (130-400); RDW Coefficient of Variation 12.7 % (11.5-14.5); RDW Standard Deviation 42.4 fL (36.4-46.3); Red Blood Count 3.53 M/uL (4.70-6.10); White Blood Count 9.61 K/ul (4.8-10.8)
[2023-09-13 05:24] LABS: Albumin Globulin Ratio 1.8 (0.9-2); Albumin Level 3.5 gm/dl (3.4-5.0); BUN Creatinine Ratio 12.1 (10-20); Bilirubin,Total 0.5 mg/dl (0.2-1.0); Calcium 8.8 mg/dl (8.6-10.3); Creatinine Clr Calc Pharmacy 38.7 ml/min; Est GFR (African American) 34.8 ml/min; Potassium 3.8 mmol/L (3.5-5.1); Total Protein 5.5 gm/dl (6.0-8.3)
[2023-09-13] MEDS: dilTIAZem HCL 120 MG CAPCR PO SCH (10:59)
[2023-09-13] MEDS: ACETAMINOPHEN 325 MG TAB PO PRN (13:59)
--- NOTE | 2023-09-13 16:05 | Hospitalist Progress Note ---
Date of Service September 13, 2023 Assessment & Plan (1) Atrial fibrillation with rapid ventricular response: Plan: Substernal chest pain started 09/07. Presented to the ED. Found to be in a fib with RVR. Troponin peaked at 21.5. Likely in the setting of GI infection/de hydration. Patient started on dilt drip leading to rate control. PO cardizem was continued with the hopes of weaning off of drip and resuming home dosing. Patient became hypotensive 09/09 requiring vasopressor support in the ICU. BP now acceptable. Rate elevated in the 100s. Per cardiology increase to dilt 30 mg TID. Once patient rate control and tolerating PO can anticipate discharge home. dilt 120 mg CD daily, could increase given borderline rates monitor on tele (2) Hypotension: Plan: Patient became hypotensive 09/09. Despite clearly written parameters dilt drip and PO dilt were continued. Patient with minimal response to IVF. Escalated care to ICU status. Vasopressor support was given. Likely hypotensive in setting of excessive calcium channel blockage and hypovolemia. Patient was started on steroids and empiric antibiotics in the ICU. BP now acceptable. As patient significantly improved will discontinue these and continue with supportive care hold lisinopril adjust IVF as PO intake increases (3) Gastritis: Plan: Patient with nausea and decreased PO intake for about a weak prior to presentation. CT with non-specific viral gastritis. No signs of diverticulitis, perforation, or abscess. Procal negative. Lactate < 2. BioFire stool and c. dif negative. Blood cultures with NGTD x 24H. Patient aggressively fluid resuscitated. Antiemetics and acid suppressant. Concern for peptic ulcer disease. Zofran as needed Started PPI BID, H2 segundo BID, and carafate QID Monitor for symptom improvement (4) Sepsis: Plan: Tachypnea + tachycardia + GI source on arrival. Resolved. Patient was started on empiric antibiotics when upgraded to the ICU. Very likely viral gastritis. Abx have been discontinued. (5) JACK (acute kidney injury): Plan: BUN 51, creatinine 2.80 on admit (baseline around 1.4), EGFR 21.7. FeNa 0.3%. Most likely pre-renal. Aggressively fluid resuscitated. Continue LR @ 125 mL until appropriate PO intake. IVF @ 125 mL/hr, improving avoid nephrotoxics (6) 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, type 2: Plan: Last A1c 5.6% on 10/29/2022. Diet controlled. Defer on SSI as sugars acceptable. Continue to monitor. monitor (7) Hypertension: Plan: Hold lisinopril. If BP remains stable and creatinine improves can restart. (8) Anxiety: Plan: Continue paroxetine, diazepam (9) Supratherapeutic INR: Plan: Supratherapeutic INR on admission. Warfarin was held. INR 2.5. Give 2 mg today. Depending on INR - resume home dosing. Recheck in AM (10) Adrenal insufficiency: Plan: Relative adrenal insufficiency in the setting of shock. AM cortisol ~9. Stress dose of steroids. Would recommend ACTH stimulation testing outpatient after about a month of being off steroids. Continue hydrocortisone 50 mg BID Outpatient f/u as above (11) Back pain: Plan: Chronic condition. OMT may be effective. Can consider while inpatient. Plan Disposition: downgraded to PCU telemetry 09/10 Full code Heart healthy diet, as tolerated VTE PPx: INR resume warfarin Admission and Anticipated Discharge Date Admission Date: September 09, 2023 Supervising Physician Co-Signing Physician Notes I personally examined the patient and verified all guerrero points of history and exam, discussed case, and agree with decision making with Dr Crews Still a lot of food intolerance. Still fairly nauseated. Almost a bit of a bigger complaint today he is starting to have rib related pain and cannot really take a good deep breath because of the pain. Vitals noted, in general he is awake and alert pleasant no distress. HEENT normocephalic atraumatic mucous membranes moist. Abdomen is soft ongoing epigastric tenderness. He is also fairly tender along his lower rib cage. Decreased respiratory motion. Possible peptic ulcer diseasewhile initially he came in with a severe enough viral enteritis to appear consistent with sepsis and had profound dehydration, and that certainly would have been enough to explain his upper GI symptoms, at this point his infectious symptoms appear to be improving, he is better hydrated, overall doing better, but his upper GI symptoms have remained static or may be slightly worsenedI have high suspicion for peptic ulcer disease now. He is not really feeling much betterpart of that may be simply that it is going to take more time for his peptic ulcer disease to heal over (but since he is not showing any ongoing concern of bleeding there would be no real benefit of a urgent EGD) and some of that might be that he is starting to have a little bit more dominant picture of rib related chest pain that is probably both primarily rib dysfunction from all of his vomiting and related to immobility/chronic back pain. Hypoxiasuspect atelectasis from poor inspiratory effortincentive spirometry, encourage movement Shockappears to have been a combination of severe dehydration from his viral gastroenteritis and hypotensive effects from diltiazem for RVR. now doing better. Resolved Acute renal failuredue to dehydrationFeNa c/w prerenal - continue IV fluids, improved Septic appearanceappears predominantly due to viral enteritis and profound dehydration. accentuated by low adrenal state - hydrocortisone replacement, follow- outpt lab w/u to discern ?true adrenal insufficiencywill slowly start to wean down hydrocortisone starting 09/13 A-fibrates now controlled. Chronically anticoagulated on warfarin (the fact that he is anticoagulated and does not have overt bleeding also pleads against his drop in hemoglobin actually being hemorrhage) Subjective Patient seen at bedside this morning. No acute events reported overnight. Patient unfortunately continues to complain of lower and upper abdominal pain despite being Hemoccult negative. He is occasionally having loose stools but without vomiting. He is eating limited amounts of food due to nausea which is occasionally relieved by antiemetics. He is having chest pain with blood draws without any change in EKG. Otherwise no new complaints this time. Review of Systems Review of Systems: See HPI Physical Exam Constitutional: WD/WN, vitals as above Neck: trachea midline, no thyromegaly Respiratory: normal respiratory effort, lungs clear to auscultation Cardiovascular: Rate/Rhythm: + abnormal rate and + abnormal rhythm Heart Sounds: no murmur Extremities: no edema Gastrointestinal (Abdomen): Inspection/Auscultation: abdomen normal to inspection and normal bowel sounds; abdomen not distended Musculoskeletal: Extremities: extremities normal to inspection Skin: no rashes, warm and dry Neurologic: moves all extremities and awake Psychiatric: A+Ox3, euthymic affect Lymphatic: no cervical lymphadenopathy Results & Data Results & Data Vital Signs (Past 12 Hours) Vital Signs Temp Pulse Pulse Resp BP BP Pulse Ox 09/13/23 11:51 36.8 C 109 H 20 112/78 96 09/13/23 11:48 120 H 94 09/13/23 11:48 112/78 09/13/23 10:00 135 H 09/13/23 09:31 140/85 09/13/23 09:31 112 H 2 L 09/13/23 08:00 149/94 H 09/13/23 08:00 120 H 0 L 94 09/13/23 08:00 110 H 09/13/23 08:00 09/13/23 07:20 141/92 H 09/13/23 07:20 110 H 0 L 94 09/13/23 07:00 36.9 C 111 H 20 141/92 H 95 09/13/23 06:00 110 H 0 L 86 L 09/13/23 04:00 126/86 09/13/23 04:00 100 H 0 L 89 L 09/13/23 04:00 36.8 C O2 Del Method 09/13/23 11:51 Room Air 09/13/23 11:48 09/13/23 11:48 09/13/23 10:00 09/13/23 09:31 09/13/23 09:31 09/13/23 08:00 09/13/23 08:00 09/13/23 08:00 09/13/23 08:00 Room Air 09/13/23 07:20 09/13/23 07:20 09/13/23 07:00 Room Air 09/13/23 06:00 09/13/23 04:00 09/13/23 04:00 09/13/23 04:00 (6) 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, type 2 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 complication status: without complication 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 residential insulin use: without residential use Qualified Code(s): E11.9 - Type 2 diabetes mellitus without complications
--- NOTE | 2023-09-13 17:26 | Billing Data ---
Date of Service September 13, 2023 Coding Level of Care Code 19733 SUB INP/OBS CARE MIN
[2023-09-14 04:56] LABS: Hematocrit (blood only) 34.6 % (42.0-52.0); Hemoglobin 11.8 g/dl (14.0-18.0); Mean Corpuscular Hemoglobin 31.9 pg (25.0-34.0); Mean Corpuscular Hgb Conc 34.1 g/dL (32.0-36.0); Mean Corpuscular Volume 93.5 fL (80.0-100.0); Mean Platelet Volume 9.7 fL (9.4-12.4); Platelet Count 175 K/uL (130-400); RDW Coefficient of Variation 12.8 % (11.5-14.5); White Blood Count 11.68 K/ul (4.8-10.8)
[2023-09-14 05:06] LABS: Albumin Globulin Ratio 1.6 (0.9-2); Albumin Level 3.7 gm/dl (3.4-5.0); BUN Creatinine Ratio 11.3 (10-20); Bilirubin,Total 0.8 mg/dl (0.2-1.0); Calcium 8.9 mg/dl (8.6-10.3); Est GFR (African American) 33.5 ml/min; Est GFR (Non-African American) 28.9 ml/min; Globulin 2.3 gm/dl (2.5-4.0); Potassium 3.5 mmol/L (3.5-5.1)
[2023-09-14 05:18] LABS: INR 2.2 (0.9-1.1); Prothrombin Time 22.1 Seconds (9.0-12.0)
--- NOTE | 2023-09-14 05:50 | Electrocardiogram Report ---
Test Reason : Blood Pressure : / mmHG Vent. Rate : 106 BPM Atrial Rate : 115 BPM P-R Int : 000 ms QRS Dur : 084 ms QT Int : 362 ms P-R-T Axes : 000 045 044 degrees QTc Int : 480 ms Atrial fibrillation with rapid ventricular response Abnormal ECG When compared with ECG of 09-SEP-2023 13:52, No significant change Confirmed by Horace Horton ([id number] on 09/14/2023 5:50:00 AM Referred By: REFERRED SELF Confirmed By:Horace Horton
--- NOTE | 2023-09-14 06:25 | Electrocardiogram Report ---
Test Reason : Blood Pressure : / mmHG Vent. Rate : 112 BPM Atrial Rate : 105 BPM P-R Int : 000 ms QRS Dur : 090 ms QT Int : 352 ms P-R-T Axes : 000 035 029 degrees QTc Int : 480 ms Atrial fibrillation with rapid ventricular response Low voltage QRS Nonspecific ST and T wave abnormality Abnormal ECG When compared with ECG of 11-SEP-2023 17:27, No significant change was found Confirmed by Horace Horton ([id number] on 09/14/2023 6:25:05 AM Referred By: REFERRED SELF Confirmed By:Horace Horton
[2023-09-14] MEDS ORDERED: LIDOCAINE 5% 1 PATCH TD PRN ×2 (06:56→07:35)
[2023-09-14] MEDS: HYDROCORTISONE 10 MG TAB PO SCH (07:42)
[2023-09-14] MEDS: FAMOTIDINE 20MG IV PUSH 20 MG/5 ML SYR IV SCH (07:50)
[2023-09-14] MEDS: dilTIAZem HCL 180 MG CAPCR PO SCH (08:43)
--- NOTE | 2023-09-14 09:49 | XRay Report ---
XR chest 2V PA/lateral CLINICAL HISTORY: increased respiratory rate TECHNIQUE: 2 views of the chest were obtained. Comparison: Comparison is made to chest radiograph 05/11/2023 FINDINGS: ACDF is seen and there is posterior fixation hardware in the lumbar spine. Cardiomegaly is noted. The aortic arch is calcified. Bilateral lower lung predominant airspace opacities are seen. No evidence of pleural effusion or pneumothorax. IMPRESSION: Bilateral lower lung predominant airspace opacities which may represent atelectasis, pneumonia, and/o r aspiration. ACT 112: Negative or not required by law. Electronically signed by: Maico Nguyễn M.D. 09/14/2023 9:48 AM
[2023-09-14] MEDS: oxyCODONE/ACETAMINOPHEN 5mg/325mg TAB PO STA (11:27)
[2023-09-14] MEDS ORDERED: dilTIAZem HCL 120 MG CAPCR PO ONE (13:03)
--- NOTE | 2023-09-14 13:06 | Hospitalist Progress Note ---
Date of Service September 14, 2023 Assessment & Plan (1) Atrial fibrillation with rapid ventricular response: Plan: Substernal chest pain started 09/07. Presented to the ED. Found to be in a fib with RVR. Troponin peaked at 21.5. Likely in the setting of GI infection/de hydration. Patient started on dilt drip leading to rate control. PO cardizem was continued with the hopes of weaning off of drip and resuming home dosing. Patient became hypotensive 09/09 requiring vasopressor support in the ICU. BP now acceptable. Rate elevated in the 100s. Per cardiology increase to dilt 30 mg TID. Once patient rate control and tolerating PO can anticipate discharge home. Increase diltiazem to 180 mg and if no improvement add an additional 60 in the afternoon for rate control. monitor on tele (2) Hypotension: Plan: Patient became hypotensive 09/09. Despite clearly written parameters dilt drip and PO dilt were continued. Patient with minimal response to IVF. Escalated care to ICU status. Vasopressor support was given. Likely hypotensive in setting of excessive calcium channel blockage and hypovolemia. Patient was started on steroids and empiric antibiotics in the ICU. BP now acceptable. As patient sig nificantly improved will discontinue these and continue with supportive care hold lisinopril adjust IVF as PO intake increases (3) Gastritis: Plan: Patient with nausea and decreased PO intake for about a weak prior to presentation. CT with non-specific viral gastritis. No signs of diverticulitis, perforation, or abscess. Procal negative. Lactate < 2. BioFire stool and c. dif negative. Blood cultures with NGTD x 24H. Patient aggressively fluid resuscitated. Antiemetics and acid suppressant. Concern for peptic ulcer disease. Zofran as needed Started PPI BID, H2 segundo BID, and carafate QID Monitor for symptom improvement (4) Sepsis: Plan: Tachypnea + tachycardia + GI source on arrival. Resolved. Patient was started on empiric antibiotics when upgraded to the ICU. Very likely viral gastritis. Abx have been discontinued. (5) JACK (acute kidney injury): Plan: BUN 51, creatinine 2.80 on admit (baseline around 1.4), EGFR 21.7. FeNa 0.3%. Most likely pre-renal. Aggressively fluid resuscitated. Continue LR @ 125 mL until appropriate PO intake. IVF @ 125 mL/hr, improving avoid nephrotoxics (6) 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, type 2: Plan: Last A1c 5.6% on 10/29/2022. Diet controlled. Defer on SSI as sugars acceptable. Continue to monitor. monitor (7) Hypertension: Plan: Hold lisinopril. If BP remains stable and creatinine improves can restart. (8) Anxiety: Plan: Continue paroxetine, diazepam (9) Supratherapeutic INR: Plan: Supratherapeutic INR on admission. Warfarin was held. INR 2.5. Give 2 mg today. Depending on INR - resume home dosing. Currently therapeutic at 2.2 (10) Adrenal insufficiency: Plan: Relative adrenal insufficiency in the setting of shock. AM cortisol ~9. Stress dose of steroids. Would recommend ACTH stimulation testing outpatient after about a month of being off steroids. Continue hydrocortisone 50 mg BID Outpatient f/u as above (11) Back pain: Plan: Chronic condition. OMT may be effective. Can consider while inpatient. Restart home oxycodone as did not cause withdraw or hyperalgesia Plan Disposition: downgraded to PCU telemetry 09/10 Full code Heart healthy diet, as tolerated VTE PPx: INR resume warfarin Admission and Anticipated Discharge Date Admission Date: September 09, 2023 Supervising Physician Co-Signing Physician Notes I personally examined the patient and verified all guerrero points of history and exam, discussed case, and agree with decision making with Dr Crews still not really able to eat well. Still feeling more or less the same with belly painrelates may be possibly a little bit worse. Still has lower rib pain and everything feels fairly tight in his lower rib cage and upper abdomen. Also dyspnea on exertion. Vitals noted, in general he is awake and alert pleasant no distress. HEENT normocephalic atraumatic mucous membranes moist. Abdomen is soft ongoing epigastric tenderness. He is also fairly tender along his lower rib cage. Decreased respiratory motion. Possible peptic ulcer diseasewhile initially he came in with a severe enough viral enteritis to appear consistent with sepsis and had profound dehydration, and that certainly would have been enough to explain his upper GI symptoms, at this point his infectious symptoms appear to be improving, he is better hydrated, overall doing better, but his upper GI symptoms have remained static or may be slightly worsenedI have high suspicion for peptic ulcer disease now. He Continues to feel no betterpart of that may be simply that it is going to take more time for his peptic ulcer disease to heal over (but since he is not showing any ongoing concern of bleeding there would be no real benefit of a urgent EGD) and some of that might be that he is starting to have a little bit more dominant picture of rib related chest pain that is probably both primarily rib dysfunction from all of his vomiting and related to immobility/chronic back pain. will increase Valium for the rib/muscular part of this, and give additional/short course of scheduled Zofran Atrial fibrillationRVR probably partly just baseline A-fib, and worse because of multiple drivers for reflex tachycardia with a baseline rhythm that happens to be A-fib (i.e. has ongoing stomach distress and pain would both be reasonable drivers for a reflex tachycardia, and then because his rhythm is A-fib it becomes RVR)escalating diltiazem for now. Symptoms seem to improve quite quickly as his rates improved (and his rates were about 901 05 while I was discussing his case with nursing for a while before seeing him) chronic back painwe had a good discussion reiterating the plans we have discussed in the fall and winterit sounds like he had not followed through because of a general mistrust of the medical system and prior bad experiencesalthough whenever he relates those they seem to be mostly surgical. Outlined everything again in detail, answered all questions to the best my ability and his satisfaction. We also discussed that medical marijuana would be reasonable to trythat I doubt it would really have much of a lasting benefit, but probably would be reasonable for transient pain reliefand likely for him would be safe for than his current methods of transient pain relief with narcotics or alcohol. Hypoxiasuspect atelectasis from poor inspiratory effortincentive spirometry, encourage movement Shockappears to have been a combination of severe dehydration from his viral gastroenteritis and hypotensive effects from diltiazem for RVR. now doing better. Resolved Acute renal failuredue to dehydrationFeNa c/w prerenal - continue IV fluids, improved Septic appearanceappears predominantly due to viral enteritis and profound dehydration. accentuated by low adrenal state - hydrocortisone replacement, follow- outpt lab w/u to discern ?true adrenal insufficiencyhad 25mg hydrocortisone this AM, and while he is more tachycardic, the fact that his blood pressures are actually elevated rather than low makes me suspect that the tachycardia is not at all anything adrenally insufficient. Hydrocortisone order has been discontinuedfollow how he does with his pressures off the hydrocortisone. Outpatient follow-up otherwise. Subjective Patient seen at bedside this morning. No acute events reported overnight. Patient continues to have chest and abdominal pain with loose stools but without vomiting. No real changes. Patient is asking for pain medication. Typically he takes oxycodone at home and has not been receiving it during hospitalization due to low blood pressures with unstable A-fib earlier in the week. No new complaints. Review of Systems Review of Systems: See HPI Physical Exam Constitutional: WD/WN, vitals as above Neck: trachea midline, no thyromegaly Respiratory: normal respiratory effort, lungs clear to auscultation Cardiovascular: Rate/Rhythm: + abnormal rate and + abnormal rhythm Heart Sounds: no murmur Extremities: no edema Gastrointestinal (Abdomen): normal bowel sounds, soft, nontender, no hepatosplenomegaly Inspection/Auscultation: abdomen normal to inspection and normal bowel sounds; abdomen not distended Musculoskeletal: Extremities: extremities normal to inspection Skin: no rashes, warm and dry Neurologic: moves all extremities and awake Psychiatric: A+Ox3, euthymic affect Lymphatic: no cervical lymphadenopathy Results & Data Results & Data Vital Signs (Past 12 Hours) Vital Signs Temp Pulse Pulse Resp BP Pulse Ox O2 Del Method 09/14/23 12:14 37.2 C 115 H 18 151/94 H 91 Room Air 09/14/23 10:39 137 H 09/14/23 10:20 Room Air 09/14/23 08:03 144 H 09/14/23 08:02 37.3 C 121 H 22 158/98 H 94 Room Air 09/14/23 03:49 36.7 C 106 H 20 128/91 92 Room Air (6) 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, type 2 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 complication status: without complication 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 prison insulin use: without terminal superintendent use Qualified Code(s): E11.9 - Type 2 diabetes mellitus without complications
--- NOTE | 2023-09-14 14:39 | Billing Data ---
Date of Service September 14, 2023 Coding Level of Care Code 23278 SUB INP/OBS CARE
[2023-09-14] MEDS: dilTIAZem HCl 60 MG TAB PO ONE (15:22)
[2023-09-14] MEDS: ONDANSETRON INJ 2 MG/ML 2 ML VIAL IV STA (15:23)
[2023-09-14] MEDS: dilTIAZem HCL 30 MG TAB PO ONE (15:25)
[2023-09-14] MEDS: diazePAM 5 MG TABLET PO SCH (18:22)
[2023-09-14] MEDS: ONDANSETRON INJ 2 MG/ML 2 ML VIAL IV SCH (20:18)
--- NOTE | 2023-09-15 00:52 | Communication Note ---
Date of Service: September 15, 2023 Was notified by nursing that Mr. Coleman had become hypoxic with oxygen saturation to the mid 80s% despite supplemental oxygen. On chart review and per nursing, patient had IV fluids discontinued earlier in the day. I ordered a chest x-ray and went to bedside. Mr. Coleman was tachypneic during exam, some diminished lung sounds but no significant rales or rhonchi appreciated. Some mild lower extremity edema appreciated. I ordered a 10mg dose of IV Lasix. I reviewed the image from the portable x-ray, when compared to prior x-ray from 7am (on 09/13), right lung appears to have consolidation. Upon chart review, patient also had elevated temp to 37.9C earlier this evening, I started Cefepime for concern of pneumonia. Later in the night, I was notified that the patient's oxygen requirement continued to increase progressing from 6L to ultimately 15L NC while still not maintaining adequate oxygen saturations. I notified Dr. Menendez of his st atus change and ordered an ABG and stat labs. Nursing notified respiratory as well. When I returned to bedside, labs were being obtained. Mr. Coleman had a HR in the 120s and respiratory rate of 28-30 at this time. ABG result was obtained and showed respiratory alkalosis (pH 7.48, pCO2 32, HCO3 24). Respiratory initiated high flow nasal cannula. Linezolid was added for additional antibiotic coverage, there is concern of aspiration as the cause of this pneumonia so patient was made NPO and an order was placed for speech therapy evaluation. I did discuss with pharmacy the interaction between L chastityzolid and Paxil, I have discontinued his Paxil for the time being but I was advised by pharmacy to watch for signs of serotonin syndrome in the 24+ hours. Repeat MRSA nares was also ordered, although prior swab from earlier in admission. Patient has also continued to have elevated heart rate, currently reaching upper 130s while staying in atrial fibrillation, will order a one time dose of digoxin to see if tachycardia will improve. At approximately 5:15a.m. I was notified that the patient had gone from 50 to 100 FIO2 ratio on 60L HFNC while O2 sat dropping to the low 80s. I contact the application support analyst BARTOLO and asked for assessment due to concern patient would require ICU admission. I returned to bedside and alongside respiratory therapy explained to the patient why he needed to be put on BiPAP which he had refused earlier in the night. Patient agreed to putting on the BiPAP. Sales Support Technician BARTOLO recommended additional IV Lasix and BiPAP. I put in consult request for pulmonology/Dr. Diop at this time.
[2023-09-15] MEDS: CEFEPIME 2,000 MG in SYRINGE 0 ML IV SCH (01:04)
[2023-09-15] MEDS: FUROSEMIDE INJ 20 MG/2 ML VIAL IV STA (01:04)
[2023-09-15 04:04] LABS: Base Excess ABG 0.9 mEq/L (-9-1.8); HCO3 ABG 24 mmol/L (19-24); Oxygen Saturation ABG 99.3 % (90-95); PCO2 ABG 32 mmHg (35-46); PO2 ABG 131 mmHg (80-95); pH ABG 7.48 (7.35-7.45)
[2023-09-15 04:09] LABS: Allen Test Pos (Pos)
[2023-09-15 04:10] LABS: Basophils # (auto) 0.02 K/uL (0.00-0.20); Basophils % (auto) 0.2 %; Eosinophils # (auto) 0.23 K/uL (0.00-0.50); Eosinophils % (auto) 1.9 %; Hematocrit (blood only) 32.1 % (42.0-52.0); Immature Granulocytes % (auto) 0.8 %; Lymphocytes # (auto) 1.08 K/uL (1.20-3.40); Lymphocytes % (auto) 8.7 %; Mean Corpuscular Hemoglobin 31.9 pg (25.0-34.0); Mean Corpuscular Hgb Conc 34.3 g/dL (32.0-36.0); Mean Platelet Volume 9.8 fL (9.4-12.4); Monocytes # (auto) 0.84 K/uL (0.11-0.59); Monocytes % (auto) 6.8 %; Neutrophils # (auto) 10.16 K/uL (1.40-6.50); Neutrophils % (auto) 81.6 %; Platelet Count 162 K/uL (130-400); Red Blood Count 3.45 M/uL (4.70-6.10); White Blood Count 12.43 K/ul (4.8-10.8)
[2023-09-15 04:30] LABS: Albumin Globulin Ratio 1.5 (0.9-2); Albumin Level 3.6 gm/dl (3.4-5.0); BUN Creatinine Ratio 10.3 (10-20); Bilirubin,Total 1.2 mg/dl (0.2-1.0); Calcium 8.8 mg/dl (8.6-10.3); Creatinine Clr Calc Pharmacy 39.4 ml/min; Est GFR (Non-African American) 30.2 ml/min; Globulin 2.4 gm/dl (2.5-4.0); Potassium 3.4 mmol/L (3.5-5.1)
[2023-09-15] MEDS: DIGOXIN 250 MCG in SYRINGE 9 ML IV STA (04:38)
[2023-09-15] MEDS: LINEZOLID 600 MG/300 ML BAG IV SCH (04:39)
[2023-09-15] MEDS: FUROSEMIDE INJ 20 MG/2 ML VIAL IV ONE (06:18)
--- NOTE | 2023-09-15 07:52 | XRay Report ---
XR chest 1V portable CLINICAL HISTORY: hypoxia TECHNIQUE: Single frontal radiograph of the chest was obtained. Comparison: Comparison is made to chest radiograph 09/14/2023 FINDINGS: ACDF is seen. Cardiomegaly is noted. Airspace opacities in the right lower lobe have increased from p rior exam. Prominence of pulmonary vasculature. Small right pleural effusion. IMPRESSION: 1. Worsening of right lower lung airspace opacity and pleural effusion. This may represent worsening pneumonia and/or aspiration. 2. Cardiomegaly with possible mild pulmonary edema. ACT 112: Negative or not required by law. Electronically signed by: Maico Nguyễn M.D. 09/15/2023 7:50 AM
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
[2023-09-15] MEDS: FUROSEMIDE 40 MG/4 ML VIAL IV ONE (08:37)
[2023-09-15] MEDS: cefTRIAXone SODIUM 2,000 MG/50 ML BAG IV SCH (14:10)
--- NOTE | 2023-09-15 14:41 | Billing Data ---
Date of Service September 15, 2023 Coding Level of Care Code 50788 SUB INP/OBS CARE
--- NOTE | 2023-09-15 15:06 | Hospitalist Progress Note ---
Date of Service September 15, 2023 Assessment & Plan (1) Atrial fibrillation with rapid ventricular response: Plan: Substernal chest pain started 09/07. Presented to the ED. Found to be in a fib with RVR. Troponin peaked at 21.5. Likely in the setting of GI infection/de hydration. Patient started on dilt drip leading to rate control. PO cardizem was continued with the hopes of weaning off of drip and resuming home dosing. Patient became hypotensive 09/09 requiring vasopressor support in the ICU. BP now acceptable. Rate elevated in the 100s. Per cardiology increase to dilt 30 mg TID. Once patient rate control and tolerating PO can anticipate discharge home. Diltiazem 180 am, 60 pm. Once respiration and volume status improve, increase to 300 mg total daily monitor on tele (2) Acute hypoxemic respiratory failure: Plan: Secondary to likely fluid overload and aspiration pneumonitis on XR Given multiple doses of lasix with improvement down to 2LNC Started on Linezolid and Cefepime overnight, MRSA nares neg, deescalated to Rocephin daily Clinically Improving (3) Hypotension: Plan: Patient became hypotensive 09/09. Despite clearly written parameters dilt drip and PO dilt were continued. Patient with minimal response to IVF. Escalated care to ICU status. Vasopressor support was given. Likely hypotensive in setting of exce ssive calcium channel blockage and hypovolemia. Patient was started on steroids and empiric antibiotics in the ICU. BP now acceptable. As patient significantly improved will discontinue these and continue with supportive care hold lisinopril adjust IVF as PO intake increases (4) Gastritis: Plan: Patient with nausea and decreased PO intake for about a weak prior to presentation. CT with non-specific viral gastritis. No signs of diverticulitis, perforation, or abscess. Procal negative. Lactate < 2. BioFire stool and c. dif negative. Blood cultures with NGTD x 24H. Patient aggressively fluid resuscitated. Antiemetics and acid suppressant. Concern for peptic ulcer disease. Zofran as needed Started PPI BID, H2 segundo BID, and carafate QID Monitor for symptom improvement (5) JACK (acute kidney injury): Plan: BUN 51, creatinine 2.80 on admit (baseline around 1.4), EGFR 21.7. FeNa 0.3%. Most likely pre-renal. Aggressively fluid resuscitated. Fluid discontinued. BMP daily avoid nephrotoxics (6) 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, type 2: Plan: Last A1c 5.6% on 10/29/2022. Diet controlled. Defer on SSI as sugars acceptable. Continue to monitor. monitor (7) Hypertension: Plan: Hold lisinopril. If BP remains stable and creatinine improves can restart. (8) Anxiety: Plan: Continue paroxetine, diazepam (9) Supratherapeutic INR: Plan: Supratherapeutic INR on admission. Warfarin was held. INR 2.5. Give 2 mg today. Depending on INR - resume home dosing. Currently therapeutic at 2.2, recheck in am (10) Adrenal insufficiency: Plan: Relative adrenal insufficiency in the setting of shock. AM cortisol ~9. Stress dose of steroids. Would recommend ACTH stimulation testing outpatient after about a month of being off steroids. Continue hydrocortisone 50 mg BID Outpatient f/u as above (11) Back pain: Plan: Chronic condition. OMT may be effective. Can consider while inpatient. Restart home oxycodone as did not cause withdraw or hyperalgesia Plan Disposition: downgraded to PCU telemetry 09/10 Full code Heart healthy diet, as tolerated VTE PPx: INR resume warfarin Admission and Anticipated Discharge Date Admission Date: September 09, 2023 Supervising Physician Co-Signing Physician Notes I personally examined the patient and verified all guerrero points of history and exam, discussed case, and agree with decision making with Dr Crews Shortness of breath/hypoxia through the night improving drastically, has put out about 6 L of urine. Down to 2 L nasal cannula oxygen. P.o. intake is still poor. Vitals noted, in general he is awake and alert pleasant no distress. HEENT normocephalic atraumatic mucous membranes moist. Lungs diminished bilat erally but no adventitious sounds, no rales rhonchi or wheezes with good effort acute problem 09/14hypoxiaprobably fluid overload, no clear inciting factor why "now" but does not have anything appearing consistent with acute [place]/etc.improving nicely with diuresis. It is quite asymmetric, and he has had GI distress, it is possible he aspirated (no reported vomiting, but certainly could have reflux/aspirated)improving much more in line with pulmonary edemacontinue diuresis, continue empiric antibiotics for nowbut if there is no evidence of pneumonia by tomorrow, even if he had an aspiration event it would likely have been pneumonitis and self resolvedi.e. unless there is obvious signs of pneumonia by tomorrow can DC antibiotics and continue just with diuresis. Possible peptic ulcer diseasewhile initially he came in with a severe enough viral enteritis to appear consistent with sepsis and had profound dehydration, and that certainly would have been enough to explain his upper GI symptoms, at this point his infectious symptoms appear to be improving, he is better hydrated, overall doing better, but his upper GI symptoms have remained static or may be slightly worsenedI have high suspicion for peptic ulcer disease now. Still not really feeling any better despite several days of escalated acid suppression/mucosal treatment. If he is not feeling considerably better by tomorrow, strongly consider GI consult. Atrial fibrillation Rates now better controlled, anticoagulated chronic back painwe had a good discussion on 09/13 reiterating the plans we have discussed in the fall and winter (please see discharge instructions given to patient at both of those discharges to outline the detailed/comprehensive plan)it sounds like he had not followed through because of a general mistrust of the medical system and prior bad experiencesalthough whenever he relates those they seem to be mostly surgical. Outlined everything again in detail, answered all questions to the best my ability and his satisfaction. We also discussed that medical marijuana would be reasonable to trythat I doubt it would really have much of a lasting benefit, but probably would be reasonable for transient pain reliefand likely for him would be safe for than his current methods of transient pain relief with narcotics or alcohol. Shockappears to have been a combination of severe dehydration from his viral gastroenteritis and hypotensive effects from diltiazem for RVR. now doing better. Resolved Acute renal failuredue to dehydration superimposed on CKD. Septic appearanceappears predominantly due to viral enteritis and profound dehydration. accentuated by low adrenal state - hydrocortisone replacement, follow- outpt lab w/u to discern ?true adrenal insufficiencyhad 25mg hydrocortisone this AM, and while he is more tachycardic, the fact that his blood pressures are actually elevated rather than low makes me suspect that the tachycardia is not at all anything adrenally insufficient. Hydrocortisone order has been discontinuedfollow how he does with his pressures off the hydrocortisone. Outpatient follow-up otherwise. Subjective Patient seen at bedside this morning. Unfortunately, it seems that the patient's respiratory status declined overnight requiring supplemental oxygen up to the point of CPAP before O2 saturation improved but seems to be doing better this morning and currently on 6 L nasal cannula. Does describe being short of breath but without any new or worsening chest pain. Continues to feel nausea. No other complaints currently at this time. Review of Systems Review of Systems: See HPI Physical Exam Constitutional: WD/WN, vitals as above Neck: trachea midline, no thyromegaly Respiratory: + abnormal respiratory effort Auscult ation: + rhonchi (R sided > L) Cardiovascular: Rate/Rhythm: + tachycardic and + irregularly irregular Heart Sounds: no murmur Extremities: no edema Gastrointestinal (Abdomen): normal bowel sounds, soft, nontender, no hepatosplenomegaly Inspection/Auscultation: abdomen normal to inspection and normal bowel sounds; abdomen not distended Musculoskeletal: Extremities: extremities normal to inspection Skin: no rashes, warm and dry Neurologic: moves all extremities and awake Psychiatric: A+Ox3, euthymic affect Lymphatic: no cervical lymphadenopathy Results & Data Results & Data Vital Signs (Past 12 Hours) Vital Signs Temp Pulse Pulse Resp BP BP Pulse Ox 09/15/23 11:00 36.5 C 111 H 26 H 104/72 94 09/15/23 08:00 109 H 09/15/23 08:00 37.5 C 106 H 28 H 145/100 H 95 09/15/23 07:49 114 H 28 H 97 09/15/23 07:43 09/15/23 06:42 108 H 97 09/15/23 05:51 106 H 20 99 09/15/23 05:33 85 L 09/15/23 05:22 86 L 09/15/23 05:19 125 H 98 09/15/23 05:11 82 L 09/15/23 05:09 92 09/15/23 05:07 80 L 09/15/23 04:53 110 H 133/83 95 09/15/23 04:40 129/82 09/15/23 04:38 136 H 09/15/23 04:28 30 H 96 09/15/23 03:37 127 H 87 L 09/15/23 03:29 86 L O2 Del Method O2 Flow Rate FiO2 09/15/23 11:00 Nasal Cannula 2 09/15/23 08:00 09/15/23 08:00 CPAP 09/15/23 07:49 70 09/15/23 07:43 CPAP 09/15/23 06:42 CPAP 70 09/15/23 05:51 80 09/15/23 05:33 High Flow Nasal Cannula 60 100 09/15/23 05:22 High Flow Nasal Cannula 50 90 09/15/23 05:19 High Flow Nasal Cannula 50 100 09/15/23 05:11 High Flow Nasal Cannula 50 60 09/15/23 05:09 High Flow Nasal Cannula 50 60 09/15/23 05:07 High Flow Nasal Cannula 50 50 09/15/23 04:53 High Flow Nasal Cannula 50 50 09/15/23 04:40 09/15/23 04:38 09/15/23 04:28 High Flow Nasal Cannula 50 50 09/15/23 03:37 Oxymask 15 09/15/23 03:29 Oxymask 12 (6) 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, type 2 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 complication status: without complication 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 prison insulin use: without manager terminal use Qualified Code(s): E11.9 - Type 2 diabetes mellitus without complications
[2023-09-15] MEDS: dilTIAZem HCl 60 MG TAB PO ONE (16:31)
--- NOTE | 2023-09-15 16:34 | Billing Data ---
Date of Service September 15, 2023 Coding Level of Care Code 42102 SUB INP/OBS CARE
[2023-09-15] MEDS: oxyCODONE HCL IR 5 MG TAB (IMMEDIATE RELEASE) PO PRN (19:27)
[2023-09-15] MEDS ORDERED: dilTIAZem HCL 120 MG CAPCR PO SCH (21:00)
[2023-09-16] MEDS: FUROSEMIDE INJ 20 MG/2 ML VIAL IV ONE (00:02)
[2023-09-16 06:23] LABS: Basophils # (auto) 0.03 K/uL (0.00-0.20); Basophils % (auto) 0.3 %; Eosinophils # (auto) 0.48 K/uL (0.00-0.50); Eosinophils % (auto) 5.1 %; Hematocrit (blood only) 35.8 % (42.0-52.0); Hemoglobin 12.2 g/dl (14.0-18.0); Immature Granulocytes # (auto) 0.06 K/uL (0.01-0.20); Immature Granulocytes % (auto) 0.6 %; Lymphocytes # (auto) 1.52 K/uL (1.20-3.40); Lymphocytes % (auto) 16.1 %; Mean Corpuscular Hemoglobin 31.8 pg (25.0-34.0); Mean Corpuscular Hgb Conc 34.1 g/dL (32.0-36.0); Mean Corpuscular Volume 93.2 fL (80.0-100.0); Mean Platelet Volume 10.1 fL (9.4-12.4); Monocytes # (auto) 0.77 K/uL (0.11-0.59); Monocytes % (auto) 8.2 %; Neutrophils # (auto) 6.58 K/uL (1.40-6.50); Neutrophils % (auto) 69.7 %; Platelet Count 179 K/uL (130-400); RDW Coefficient of Variation 12.6 % (11.5-14.5); RDW Standard Deviation 43.1 fL (36.4-46.3); Red Blood Count 3.84 M/uL (4.70-6.10); White Blood Count 9.44 K/ul (4.8-10.8)
[2023-09-16 06:26] LABS: INR 2.6 (0.9-1.1); Prothrombin Time 25.6 Seconds (9.0-12.0)
[2023-09-16 06:54] LABS: BUN Creatinine Ratio 9.3 (10-20); Calcium 8.6 mg/dl (8.6-10.3); Creatinine Clr Calc Pharmacy 38.9 ml/min; Est GFR (African American) 34.8 ml/min; Potassium 2.9 mmol/L (3.5-5.1)
[2023-09-16] MEDS: POTASSIUM CHLORIDE CRTAB 20 MEQ TABCR PO STA (07:45)
--- NOTE | 2023-09-16 07:53 | Hospitalist Progress Note ---
Date of Service September 16, 2023 Assessment & Plan (1) Atrial fibrillation with rapid ventricular response: Plan: Substernal chest pain started 09/07. Presented to the ED. Found to be in a fib with RVR. Troponin peaked at 21.5. Likely in the setting of GI infection/dehydration. Patient started on dilt drip leading to rate control. PO cardizem was continued with the hopes of weaning off of drip and resuming home dosing. Patient became hypotensive 09/09 requiring vasopressor support in the ICU. BP now acceptable. Rate controlled with 120 mg dilt BID. monitor on tele continue dilt 120 mg BID f/u cards outpatient (2) Acute hypoxemic respiratory failure: Plan: Secondary to likely fluid overload and aspiration pneumonitis on XR. Improved with Lasix. Did start empiric abx - linezolid and cefepime. MRSA nares negative. Now on ceftriaxone. Likely aspiration pneumonitis. Reasonable to continue with cefdinir outpatient. As symptoms more commonly present during the night and when laying on his side there may be a component of wean O2 as tolerated cefdinir for CAP (3) Hypotension: Plan: Patient became hypotensive 09/09. Despite clearly written parameters dilt drip and PO dilt were continued. Patient with minimal response to IVF. Escalated care to ICU status. Vasopressor support was given. Likely hypotensive in setting of excessive calcium channel blockage and hypovolemia. Patient was started on steroids and empiric antibiotics in the ICU. BP now acceptable. As patient significantly improved will discontinue these and continue with supportive care hold lisinopril (4) Gastritis: Plan: Patient with nausea and decreased PO intake for about a weak prior to presentation. CT with non-specific viral gastritis. No signs of diverticulitis, perforation, or abscess. Procal negative. Lactate < 2. BioFire stool and c. dif negative. Blood cultures with NGTD x 24H. Patient aggressively fluid resuscitated. Antiemetics and acid suppressant. Concern for peptic ulcer disease. Zofran as needed Started PPI BID, H2 segundo BID, and carafate QID Monitor for symptom improvement (5) JACK (acute kidney injury): Plan: BUN 51, creatinine 2.80 on admit (baseline around 1.4), EGFR 21.7. FeNa 0.3%. Most likely pre-renal. Aggressively fluid resuscitated. Fluids discontinued. Will need close f/u as baseline may actually be closer to 2. BMP daily avoid nephrotoxics (6) 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, type 2: Plan: Last A1c 5.6% on 10/29/2022. Diet controlled. Defer on SSI as sugars acceptable. Continue to monitor. (7) Hypertension: Plan: Hold lisinopril. If BP remains stable and creatinine improves can restart. As BP on the softer side would hold at discharge. Can resume if hypertensive outpatient. (8) Anxiety: Plan: Continue paroxetine, diazepam (9) Supratherapeutic INR: Plan: Supratherapeutic INR on admission. Warfarin was held. Since resumed and in therapeutic range. (10) Adrenal insufficiency: Plan: Relative adrenal insufficiency in the setting of shock. AM cortisol ~9. Stress dose of steroids while inpatient. Would recommend ACTH stimulation testing outpatient after about a month of being off steroids. (11) Back pain: Plan: Chronic condition. OMT may be effective. Can consider while inpatient. Restart home oxycodone. Plan Disposition: downgraded to PCU telemetry 09/10 Full code Heart healthy diet, as tolerated VTE PPx: INR resume warfarin Admission and Anticipated Discharge Date Admission Date: September 09, 2023 Supervising Physician Co-Signing Physician Notes I personally examined the patient and verified guerrero points of history and exam, discussed case, and agree with decision making and plan documented by Dr. Singer. Patient reporting increased back pain after lying in hospital bed for past couple days. Patient is on chronic opioid therapy, agreed to a one-time dose of oxycodone during the day, encouraged him to get out of bed and work with physical therapy. Patient would benefit from a pain management referral on discharge. Discussed importance of evaluation overnight for nighttime hypoxia and need for BiPAP therapy. Continue monitoring electrolytes and maintaining potassium >4. A-fib with RVR, rate has been stable, patient denies chest pain or shortness of breath, successfully diuresed with IV furosemide. Appreciate cardiology recommendations. Subjective Patient significantly improved this morning. Review of Systems 2 Review of Systems: See HPI Physical Exam 2 Physical Exam: Gen: well appearing patient in NAD HEENT: AT NC MMM Resp: CTAB no wheezing no increased work of breathing CV: irregularly irregular, rate controlled, no m/r/g clinically well perfused Abd: non-distended MSK: no obvious deformities Skin: no rashes or bruising Neuro: alert and oriented Psych: appropriate mood and affect Results & Data Results & Data Vital Signs (Past 12 Hours) Vital Signs Temp Pulse Pulse Resp BP Pulse Ox O2 Del Method 09/16/23 03:02 36.5 C 86 19 110/71 100 BiPAP 09/16/23 02:37 76 24 93 09/16/23 00:39 90 17 92 CPAP 09/16/23 00:05 83 18 99 09/15/23 23:03 75 92 Oxymask 09/15/23 22:46 37 C 76 20 100/66 94 Oxymask 09/15/23 22:35 84 O2 Flow Rate FiO2 09/16/23 03:02 09/16/23 02:37 50 09/16/23 00:39 50 09/16/23 00:05 50 09/15/23 23:03 5 09/15/23 22:46 3 09/15/23 22:35 Laboratory Results 09/16/23 05:34 09/16/23 05:34 Resident Activity Tracking Resident Involvement: Resident Care Provided Care Provided: Adult Hospital Medicine (6) 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, type 2 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 complication status: without complication 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 termite helper insulin use: without long-term use Qualified Code(s): E11.9 - Type 2 diabetes mellitus without complications
[2023-09-16] MEDS: dilTIAZem HCL 120 MG CAPCR PO SCH (08:00)
[2023-09-16 08:17] LABS: Magnesium 1.3 mg/dl (1.7-2.4)
--- NOTE | 2023-09-16 09:17 | Cardiology Progress Note ---
Date of Service September 16, 2023 Assessment & Plan (1) Atrial fibrillation with rapid ventricular response: Plan: Impression: 1. Afib with RVR 2. Sepsis 3. Hypertension 4. Dyslipidemia 5. Echocardiogram Bernadine Ortega 09/2023 showing normal LVF with EF 55-60%, mild concentric LVH, severe left atrial enlargement, normal RSVP, Mild to moderate mitral valve regurgitation 6. Chronic kidney disease Mr. Coleman's heart rate is acceptable. He is tolerating 120 mg long acting diltiazem. His blood pressure is stable. His INR is therapeutic. He will need to reach out to the [facility] coumadin clinic after discharge to reconnect with them as he had not had an INR draw in months prior to the hospitalization. He can't afford DOACs. His fluid overload appears to be iatrogenic rather than heart failure. His echo this admission showed stable LVF. He is diuresing briskly. His potassium is low today. Recommend keeping his level above 4.0 given his afib. If he is not too sob, he should walk the halls. Admission and Anticipated Discharge Date Admission Date: September 09, 2023 Subjective Mr. Coleman unfortunately had a rough weekend. He became hypoxic and required bipap for a period. He appeared to be fluid overloaded and was diuresed with IV furosemide. Today he reports feeling much better. He is not sob in bed today. No chest pain. He is in afib with rates 80s-100 on monitor. Review of Systems Review of Systems: All systems reviewed & are unremarkable except as noted in HPI & below Physical Exam Constitutional: WD/WN, vitals as above Respiratory: normal respiratory effort, lungs clear to auscultation Cardiovascular: Rate/Rhythm: + abnormal rate and + abnormal rhythm Heart Sounds: no murmur Extremities: no edema Skin: no rashes, warm and dry Neurologic: moves all extremities and awake Psychiatric: A+Ox3, euthymic affect Results & Data Vital Signs (Past 12 Hours) Vital Signs Temp Pulse Pulse Resp BP Pulse Ox O2 Del Method 09/16/23 08:03 36.5 C 80 20 109/73 96 Nasal Cannula 09/16/23 03:02 36.5 C 86 19 110/71 100 BiPAP 09/16/23 02:37 76 24 93 09/16/23 00:39 90 17 92 CPAP 09/16/23 00:05 83 18 99 09/15/23 23:03 75 92 Oxymask 09/15/23 22:46 37 C 76 20 100/66 94 Oxymask 09/15/23 22:35 84 O2 Flow Rate FiO2 09/16/23 08:03 09/16/23 03:02 09/16/23 02:37 50 09/16/23 00:39 50 09/16/23 00:05 50 09/15/23 23:03 5 09/15/23 22:46 3 09/15/23 22:35
[2023-09-16] MEDS: MAGNESIUM SULFATE / D5W 1 GM/100 ML BAG IV SCH (09:49)
[2023-09-16] MEDS: POTASSIUM CHLORIDE CRTAB 20 MEQ TABCR PO ONE (09:49)
[2023-09-16] MEDS: oxyCODONE/ACETAMINOPHEN 5mg/325mg TAB PO ONE (13:56)
[2023-09-16 16:48] LABS: BUN Creatinine Ratio 9.9 (10-20); Calcium 8.7 mg/dl (8.6-10.3); Creatinine Clr Calc Pharmacy 37.3 ml/min; Est GFR (African American) 33.1 ml/min; Est GFR (Non-African American) 28.6 ml/min
[2023-09-16 20:33] LABS: HCO3 ABG 31 mmol/L (19-24); Oxygen Saturation ABG 96.5 % (90-95); PCO2 ABG 42 mmHg (35-46); PO2 ABG 73 mmHg (80-95); pH ABG 7.48 (7.35-7.45)
[2023-09-16 20:34] LABS: Allen Test Pos (Pos)
[2023-09-17 05:58] LABS: Base Excess ABG 8.7 mEq/L (-9-1.8); HCO3 ABG 33 mmol/L (19-24); Oxygen Saturation ABG 99.8 % (90-95); PCO2 ABG 42 mmHg (35-46); PO2 ABG 141 mmHg (80-95)
[2023-09-17 06:00] LABS: Allen Test Pos (Pos)
[2023-09-17 06:07] LABS: Basophils # (auto) 0.02 K/uL (0.00-0.20); Basophils % (auto) 0.3 %; Eosinophils # (auto) 0.31 K/uL (0.00-0.50); Eosinophils % (auto) 4.3 %; Hematocrit (blood only) 31.2 % (42.0-52.0); Hemoglobin 10.6 g/dl (14.0-18.0); Immature Granulocytes # (auto) 0.11 K/uL (0.01-0.20); Immature Granulocytes % (auto) 1.5 %; Lymphocytes # (auto) 1.67 K/uL (1.20-3.40); Lymphocytes % (auto) 23.4 %; Mean Corpuscular Hemoglobin 31.7 pg (25.0-34.0); Mean Corpuscular Volume 93.4 fL (80.0-100.0); Mean Platelet Volume 9.9 fL (9.4-12.4); Monocytes # (auto) 0.74 K/uL (0.11-0.59); Monocytes % (auto) 10.4 %; Neutrophils # (auto) 4.29 K/uL (1.40-6.50); Neutrophils % (auto) 60.1 %; Platelet Count 177 K/uL (130-400); RDW Coefficient of Variation 12.6 % (11.5-14.5); RDW Standard Deviation 43.3 fL (36.4-46.3); Red Blood Count 3.34 M/uL (4.70-6.10); White Blood Count 7.14 K/ul (4.8-10.8)
[2023-09-17 06:38] LABS: Albumin Globulin Ratio 1.5 (0.9-2); Albumin Level 3.5 gm/dl (3.4-5.0); BUN Creatinine Ratio 11.2 (10-20); Bilirubin,Total 0.5 mg/dl (0.2-1.0); Calcium 8.4 mg/dl (8.6-10.3); Creatinine Clr Calc Pharmacy 42.4 ml/min; Est GFR (African American) 38.5 ml/min; Est GFR (Non-African American) 33.2 ml/min; Globulin 2.3 gm/dl (2.5-4.0); Magnesium 2.1 mg/dl (1.7-2.4); Potassium 3.7 mmol/L (3.5-5.1); Total Protein 5.8 gm/dl (6.0-8.3)
[2023-09-17] MEDS: POTASSIUM CHLORIDE CRTAB 20 MEQ TABCR PO STA (11:17)
--- NOTE | 2023-09-17 11:54 | Hospitalist Progress Note ---
Date of Service September 17, 2023 Assessment & Plan (1) Atrial fibrillation with rapid ventricular response: Plan: Substernal chest pain started 09/07. Presented to the ED. Found to be in a fib with RVR. Troponin peaked at 21.5. Likely in the setting of GI infection/dehydration. Patient started on dilt drip leading to rate control. PO cardizem was continued with the hopes of weaning off of drip and resuming home dosing. Patient became hypotensive 09/09 requiring vasopressor support in the ICU. BP now acceptable. Rate controlled with 120 mg dilt BID. monitor on tele continue dilt 120 mg BID f/u cards outpatient (2) Acute hypoxemic respiratory failure: Plan: Secondary to likely fluid overload and aspiration pneumonitis on XR. Improved with Lasix. Did start empiric abx - linezolid and cefepime. MRSA nares negative. Now on ceftriaxone. Likely aspiration pneumonitis. Reasonable to continue with cefdinir outpatient. As symptoms more commonly present during the night and when laying on his side there may be a component of hypoventilation/MARY ELLEN. Would recommend overnight pulse ox with AM ABG to eval for qualification for NIPV. overnight pulse ox, allow desaturation - needs 5 minutes < 90 to qualify for NIPV AM ABG cefdinir for CAP on discharge (3) Hypotension: Plan: Patient became hypotensive 09/09. Despite clearly written parameters dilt drip and PO dilt were continued. Patient with minimal response to IVF. Escalated care to ICU status. Vasopressor support was given. Likely hypotensive in setting of excessive calcium channel blockage and hypovolemia. Patient was started on steroids and empiric antibiotics in the ICU. BP now acceptable. As patient significantly improved will discontinue these and continue with supportive care. Lisinopril d/c on discharge as BP remain soft can restart if BP elevated outpatient. (4) Gastritis: Plan: Patient with nausea and decreased PO intake for about a weak prior to presentation. CT with non-specific viral gastritis. No signs of diverticulitis, perforation, or abscess. Procal negative. Lactate < 2. BioFire stool and c. dif negative. Blood cultures with NGTD x 24H. Patient aggressively fluid resuscitated. Antiemetics and acid suppressant. Concern for peptic ulcer disease. Zofran as needed Started PPI BID, H2 segundo BID, and carafate QID, symptoms significantly improved, continue for 2 weeks outpatient (5) JACK (acute kidney injury): Plan: BUN 51, creatinine 2.80 on admit (baseline around 1.4), EGFR 21.7. FeNa 0.3%. Most likely pre-renal. Aggressively fluid resuscitated. Fluids discontinued. Will need close f/u as baseline may actually be closer to 2. BMP daily avoid nephrotoxics (6) 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, type 2: Plan: Last A1c 5.6% on 10/29/2022. Diet controlled. Defer on SSI as sugars acceptable. Continue to monitor. (7) Hypertension: Plan: Hold lisinopril. As BP on the softer side would hold at discharge. Can resume if hypertensive outpatient. (8) Anxiety: Plan: Continue paroxetine, diazepam (9) Supratherapeutic INR: Plan: Supratherapeutic INR on admission. Warfarin was held. Since resumed and in therapeutic range. (10) Adrenal insufficiency: Plan: Relative adrenal insufficiency in the setting of shock. AM cortisol ~9. Stress dose of steroids while inpatient. Would recommend ACTH stimulation testing outpatient after about a month of being off steroids. (11) Back pain: Plan: Chronic condition. OMT may be effective. Can consider while inpatient. Restart home oxycodone. Would do pain management referral on an outpatient basis. Plan Disposition: downgraded to PCU telemetry 09/10 Full code Heart healthy diet, as tolerated VTE PPx: warfarin - INR therapeutic Admission and Anticipated Discharge Date Admission Date: September 09, 2023 Supervising Physician Co-Signing Physician Notes I personally examined the patient and verified guerrero points of history and exam, discussed case, and agree with decision making and plan documented by Dr. Singer. Patient overall with improvement of symptoms, breathing with much improvement, no chest pain or palpitations. discussed obtaining nocturnal pulse oximetry prior to discharge so patient can at least go home on oxygen for nighttime use, he has substantial decreases into the 80s requiring positive pressure ventilation at night while hospitalized. We reviewed that he will need an outpatient sleep study. Patient is understanding. Patient continues to struggle with his back pain, advised him to follow-up with pain management on discharge, he agrees, was able to do well with physical therapy today. anticipate discharge tomorrow. Vital signs are stable. Subjective Patient significantly improved this morning. Review of Systems 2 Review of Systems: See HPI Physical Exam 2 Physical Exam: Gen: well appearing patient in NAD HEENT: AT NC MMM Resp: CTAB no wheezing no increased work of breathing CV: irregularly irregular, rate controlled, no m/r/g clinically well perfused Abd: non-distended MSK: no obvious deformities Skin: no rashes or bruising Neuro: alert and oriented Psych: appropriate mood and affect Results & Data Results & Data Vital Signs (Past 12 Hours) Vital Signs Temp Pulse Pulse Pulse Pulse Resp Resp 09/17/23 11:16 36.4 C L 77 17 09/17/23 11:11 114 H 95 H 18 09/17/23 08:00 09/17/23 08:00 80 09/17/23 07:26 36.3 C L 79 19 09/17/23 03:03 88 15 09/17/23 02:57 36.5 C 69 19 Resp BP BP Pulse Ox Pulse Ox Pulse Ox O2 Del Method 09/17/23 11:16 111/67 97 Room Air 09/17/23 11:11 17 96 93 09/17/23 08:00 Nasal Cannula 09/17/23 08:00 09/17/23 07:26 100/64 95 Nasal Cannula 09/17/23 03:03 100 09/17/23 02:57 97/65 L 100 BiPAP O2 Flow Rate FiO2 09/17/23 11:16 09/17/23 11:11 09/17/23 08:00 2 09/17/23 08:00 09/17/23 07:26 2 09/17/23 03:03 50 09/17/23 02:57 Laboratory Results 09/17/23 05:42 09/17/23 05:42 Resident Activity Tracking Resident Involvement: Resident Care Provided Care Provided: Adult Hospital Medicine (6) 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, type 2 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 complication status: without complication 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 retirement insulin use: without retirement use Qualified Code(s): E11.9 - Type 2 diabetes mellitus without complications
[2023-09-17] MEDS: oxyCODONE HCL IR 5 MG TAB (IMMEDIATE RELEASE) PO STA (16:29)
[2023-09-17 20:32] LABS: Base Excess ABG 5.6 mEq/L (-9-1.8); HCO3 ABG 29 mmol/L (19-24); Oxygen Saturation ABG 97.3 % (90-95); PCO2 ABG 36 mmHg (35-46); PO2 ABG 76 mmHg (80-95)
[2023-09-17 21:20] LABS: Allen Test Pos (Pos)
[2023-09-17] MEDS: MELATONIN 3 MG TAB PO PRN (22:51)
[2023-09-18 06:15] LABS: Base Excess ABG 7.9 mEq/L (-9-1.8); HCO3 ABG 31 mmol/L (19-24); Oxygen Saturation ABG 97.8 % (90-95); PCO2 ABG 36 mmHg (35-46); PO2 ABG 76 mmHg (80-95)
[2023-09-18 06:26] LABS: Basophils # (auto) 0.02 K/uL (0.00-0.20); Basophils % (auto) 0.3 %; Eosinophils # (auto) 0.29 K/uL (0.00-0.50); Eosinophils % (auto) 3.7 %; Hematocrit (blood only) 31.9 % (42.0-52.0); Hemoglobin 10.8 g/dl (14.0-18.0); Immature Granulocytes # (auto) 0.07 K/uL (0.01-0.20); Immature Granulocytes % (auto) 0.9 %; Lymphocytes # (auto) 1.69 K/uL (1.20-3.40); Lymphocytes % (auto) 21.3 %; Mean Corpuscular Hemoglobin 31.9 pg (25.0-34.0); Mean Corpuscular Hgb Conc 33.9 g/dL (32.0-36.0); Mean Corpuscular Volume 94.1 fL (80.0-100.0); Mean Platelet Volume 9.9 fL (9.4-12.4); Monocytes % (auto) 12.6 %; Neutrophils # (auto) 4.86 K/uL (1.40-6.50); Neutrophils % (auto) 61.2 %; Platelet Count 201 K/uL (130-400); RDW Coefficient of Variation 12.6 % (11.5-14.5); RDW Standard Deviation 43.5 fL (36.4-46.3); Red Blood Count 3.39 M/uL (4.70-6.10); White Blood Count 7.93 K/ul (4.8-10.8)
[2023-09-18 06:42] LABS: Albumin Globulin Ratio 1.4 (0.9-2); Albumin Level 3.6 gm/dl (3.4-5.0); BUN Creatinine Ratio 10.1 (10-20); Bilirubin,Total 0.5 mg/dl (0.2-1.0); Calcium 8.9 mg/dl (8.6-10.3); Est GFR (African American) 43.5 ml/min; Est GFR (Non-African American) 37.5 ml/min; Globulin 2.5 gm/dl (2.5-4.0); Magnesium 1.9 mg/dl (1.7-2.4); Potassium 4.4 mmol/L (3.5-5.1); Total Protein 6.1 gm/dl (6.0-8.3)
[2023-09-18 06:45] LABS: Allen Test Pos (Pos)
[2023-09-18 06:46] LABS: pH ABG 7.54 (7.35-7.45)
--- NOTE | 2023-09-18 07:50 | Discharge Summary ---
Date of Service September 18, 2023 Admission HPI Per Admitting Provider Sawyer is a 73-year-old male with PMH of T2DM, A-fib with RVR, IV drug use, HTN, HLD, prostate cancer, BPH, gout, anxiety, and CKD stage III. He presented via EMS for acute onset of nausea and diffuse chest pain that started the evening of 09/07. Patient reports that the chest pain is substernal and constant, and that it fluctuates between 5/10 - 8/10 pain. He reports that he had a similar experience when he had A-fib with RVR in June; however, the nausea is new this time. No radiation to the back, neck, or jaw. Patient reports that he took all of his regular morning medications today; only recent change in medication is that he was switched off metoprolol. Patient reports his main concern at the moment is his nausea, diarrhea, and abdominal cramping. He denies any vomiting. He denies smoking, tobacco use, or recent alcohol use. Patient is tachycardic at 125 at time of admission; vitals otherwise stable. ED course: Diltiazem drip Lorazepam 1 mg IV Protonix 80 mg IV Zofran 4 mg IV x 2 Famotidine 20 mg IV NSS 500 mL IV ROS: Patient endorses acute onset of nausea, chills, abdominal cramping, diarrhea, and chest pain. Patient denies fever, night-sweats, dizziness, lightheadedness, changes in v ision, SANDOVAL, chest palpitations, left shoulder/jaw pain or pressure, pleuritic CP, cough, or blood in urine/stool. Principal Diagnosis gastritis, a fib with RVR Discharge Exam Gen: well appearing patient in NAD HEENT: AT NC MMM Resp: CTAB no wheezing no increased work of breathing CV: irregularly irregular, rate controlled, no m/r/g clinically well perfused Abd: non-distended MSK: no obvious deformities Skin: no rashes or bruising Neuro: alert and oriented Psych: appropriate mood and affect Discharge Data Allergies Allergy/AdvReac Type Severity Reaction Status Date / Time house dust Allergy Severe congestion,difficulty Verified 09/09/23 16:38 breathing- receives allergy shots mold Allergy Severe nasal Verified 09/09/23 16:38 congestion, difficulty breathing Penicillins Allergy Intermediate rash, hives Verified 05/06/24 16:38 Consultations 09/09/23 16:25 ED Decision to Admit Stat 09/09/23 22:33 Consult Cardiology Routine 09/10/23 10:59 Consult Collar Setter Overlock Routine 09/15/23 05:57 Consult Pulmonology Routine Ordered Studies Chest X-Ray 09/09/23 14:00 FINDINGS: ACDF is seen. The cardiomediastinal silhouette is normal. The lungs are clear. No evidence of pleural effusion or pneumothorax. IMPRESSION: No acute chest disease. Abdomen/Pelvis CT 09/09/23 14:07 FINDINGS: The lung bases are clear. No pneumoperitoneum. No pneumatosis. No acute fractures identified. Right sacroiliac bolts are noted. Extensive posterior fusion hardware from T11 through S1 again noted. The left T11 pedicle screw remains fractured. Pericardial calcifications again noted. Moderate thickening of the gastric antrum with mild adjacent fat stranding. No perforation identified. Small duodenal diverticulum is noted. Small midline supraumbilical hernia containing a knuckle small bowel remains unchanged. No evidence for bowel obstruction. Stable 6 mm hypodense lesion within the right hepatic dome. This favors a cyst. The gallbladder, pancreas, spleen, and adrenal glands unremarkable. No renal stones or hydronephrosis. Stable right renal lesions measuring up to 2.7 cm again noted. These favor cysts. Calcified plaque within the normal caliber abdominal aorta. No retroperitoneal or pelvic lymphadenopathy. No pelvic free fluid. Normal bladder. Small fat-containing bilateral inguinal hernias. Stable appearance of the appendix. No evidence for acute appendicitis. Colonic diverticulosis. No evidence for acute diverticulitis. Fluid-filled colon. Questionable mild thickening within the distal descending colon and proximal sigmoid colon. This raises the possibility of a low-grade colitis. IMPRESSION: 1. Moderate thickening of the gastric antrum with adjacent fat stranding. This favors a nonspecific gastritis. An underlying gastric ulcer is not excluded. However, no perforation identified. Follow-up nonemergent endoscopy recommended for further evaluation. 2. Questionable mild thickening of the distal descending colon and proximal sigmoid colon raising the possibility of a low-grade colitis. 3. Fluid-filled colon suggestive of a diarrheal illness. 4. Small midline supraumbilical hernia containing a knuckle of small bowel. This remains unchanged. No evidence for a bowel obstruction. 5. Additional findings as described above. Chest X-Ray 09/14/23 07:00 FINDINGS: ACDF is seen and there is posterior fixation hardware in the lumbar spine. Cardiomegaly is noted. The aortic arch is calcified. Bilateral lower lung predominant airspace opacities are seen. No evidence of pleural effusion or pneumothorax. IMPRESSION: Bilateral lower lung predominant airspace opacities which may represent atelectasis, pneumonia, and/or aspiration. Chest X-Ray 09/15/23 00:06 FINDINGS: ACDF is seen. Cardiomegaly is noted. Airspace opacities in the right lower lobe have increased from prior exam. Prominence of pulmonary vasculature. Small right pleural effusion. IMPRESSION: 1. Worsening of right lower lung airspace opacity and pleural effusion. This may represent worsening pneumonia and/or aspiration. 2. Cardiomegaly with possible mild pulmonary edema. Hospital Course (1) Atrial fibrillation with rapid ventricular response: Substernal chest pain started 09/07. Presented to the ED. Found to be in a fib with RVR. Troponin peaked at 21.5. Likely in the setting of GI infection/dehydration. Patient started on dilt drip leading to rate control. PO cardizem was continued with the hopes of weaning off of drip and resuming home dosing. Patient became hypotensive 09/09 requiring vasopressor support in the ICU. BP now acceptable. Rate controlled with 120 mg dilt BID. Cards follow up outpatient. (2) Acute hypoxemic respiratory failure: Secondary to likely fluid overload and aspiration pneumonitis on XR. Improved with Lasix. Did start empiric abx - linezolid and cefepime. MRSA nares negative. On CTX inpatient, transition to cefdinir outpatient for 5 days total. Likely aspiration pneumonitis. Reasonable to continue with cefdinir outpatient. As symptoms more commonly present during the night and when laying on his side there may be a component of hypoventilation/MARY ELLEN. Would recommend overnight pulse ox with AM ABG to eval for qualification for NIPV or home oxygen. Patient did desat overnight, with recovery on 2L. Will set up home O2 - 2L NC QHS. Patient w ill need outpatient sleep follow up. (3) Hypotension: Patient became hypotensive /. Despite clearly written parameters dilt drip and PO dilt were continued. Patient with minimal response to IVF. Escalated care to ICU status. Vasopressor support was given. Likely hypotensive in setting of excessive calcium channel blockage and hypovolemia. Patient was started on steroids and empiric antibiotics in the ICU. BP now acceptable. As patient significantly improved will discontinue these and continue with supportive care. Lisinopril d/c on discharge as BP remain soft can restart if BP elevated outpatient. (4) Gastritis: Patient with nausea and decreased PO intake for about a weak prior to presentation. CT with non-specific viral gastritis. No signs of diverticulitis, perforation, or abscess. Procal negative. Lactate < 2. BioFire stool and c. dif negative. Blood cultures with NGTD x 24H. Patient aggressively fluid resuscitated. Antiemetics and acid suppressant - PPI BID, H2 segundo, and carafate QID. Concern for peptic ulcer disease. Continue outpatient for 2 weeks, then reassess. F/u PCP. (5) JACK (acute kidney injury): BUN 51, creatinine 2.80 on admit (baseline around 1.4), EGFR 21.7. FeNa 0.3%. Most likely pre-renal. Aggressively fluid resuscitated. Fluids discontinued. Follow up outpatient. (6) 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, type 2: Last A1c 5.6% on 10/29/2022. Diet controlled. Defer on SSI as sugars acceptable. Continue to monitor. (7) Hypertension: Hold lisinopril. As BP on the softer side would hold at discharge. Can resume if hypertensive outpatient. (8) Anxiety: Continue paroxetine, diazepam (9) Supratherapeutic INR: Supratherapeutic INR on admission. Warfarin was held. Since resumed and in therapeutic range. (10) Adrenal insufficiency: Relative adrenal insufficiency in the setting of shock. AM cortisol ~9. Stress dose of steroids while inpatient. Would recommend ACTH stimulation testing outpatient after about a month of being off steroids. (11) Back pain: Chronic condition. OMT may be effective. Can consider while inpatient. Restart home oxycodone. Would do pain management referral on an outpatient basis. Total Time Total Time Spent Total Time Spent (In Minutes): See attending attestation Discharge Plan Discharge Items Patient Disposition: Home - Self-Care Reason For Visit: ACUTE ONSET OF NAUSEA, CHEST PAIN Discharge Diagnosis: gastritis, a fib with RVR Activity: Per Instructions section Non-emergency contact: Primary Care Provider and Lead Painter Call non-emergency contact if: you have any medication questions, your pain is not controlled and your temperature is above 101 Follow-up/Referrals: Randal Beatty DO [Physician] - (Called to schedule, Dr. Beatty's office will call Pt to schedule follow up.) Nithya Foster MD [Primary Care Provider] - 09/23/23 3:45 pm (Hospital follow up schedule with Dr. Foster on September 22 at 3:45) Diet: Heart Healthy Addtl Attending Provider Instructions: You were seen in the hospital for shortness of breath and gastrointestinal illness. You heart rate was found to be significantly elevated. You have a history of atrial fibrillation. We changed your diltiazem dosing to 120 mg twice daily. Follow up with cardiology for further management. Your gastrointestinal illness improved significantly. We started you on acid reducers for presumed gastritis. Would continue these acid reducers - pantoprazole, famotidine, Carafate for 2 weeks and follow up with your PCP. You likely developed a bit of a pneumonia. We will continue your antibiotics outpatient with a medication called cefdinir. We will continue with 5 days total of treatment, take as directed. Your oxygen saturation dropped most nights and improved with CPAP/BiPAP. You have may some sort of sleep disorder. We will send you home with oxygen to use 2L nightly. We will also put in a referral to sleep medicine. They should contact you about scheduling an appointment. Pending Studies at Discharge: No Stand-Alone Forms: My [facility], Smoking Cessation Medications and DC Order Prescriptions: New sucralfate 1 gram Tablet 1 g PO QID Qty: 60 0RF lidocaine 5 % Adhesive Patch,Medicated 1 patch transdermal DAILY PRN (Reason: pain) Qty: 30 0RF diltiazem HCl [Cardizem CD] 120 mg Capsule,Extended Release 24hr 120 mg PO BID Qty: 60 0RF cefdinir 300 mg capsule 300 mg PO BID 2 Days Qty: 4 0RF famotidine [Acid Controller] 20 mg tablet 20 mg PO BID 14 Days Qty: 28 0RF pantoprazole 40 mg tablet,delayed release (DR/EC) 40 mg PO BID 14 Days Qty: 28 0RF Continued multivitamin Tablet 1 tab PO HS paroxetine HCl [Paxil] 40 mg tablet 40 mg PO HS Rx Instructions: ON HOLD PER PT TAKE WITH 20MG =60MG DAILY paroxetine HCl 20 mg tablet 20 mg PO HS Rx Instructions: ON HOLD PER PT TAKE WITH 40MG = 60MG DAILY rosuvastatin 40 mg tablet 40 mg PO HS diazepam 5 mg tablet 5 mg PO BID cholecalciferol (vitamin D3) [Vitamin D3] 25 mcg (1,000 unit) Tablet 25 mcg PO HS warfarin 2.5 mg tablet 3.75 mg PO HS Rx Instructions: TAKES 1 1/2 TABS AT HS. oxycodone 5 mg tablet 5 mg PO Q8H PRN (Reason: pain) Qty: 9 0RF Discontinued lisinopril [Zestril] 20 mg tablet 20 mg PO HS diltiazem HCl 30 mg tablet 30 mg PO BID Rx Instructions: LAST FILLED 04/27/2023 FOR 90 DAYS/180 TABS. Discharge Orders: Discharge Order (Routine); Ordered 09/18/23 Ordered By: Darcy Singer Admission Data Admit Date/Time: 09/09/23 17:22 Attending Provider: Dilcia Hammond Admit Provider: Kostas Fofana Primary Care Provider: Nithya Foster Other Providers: Kostas Fofana; Randal Beatty; Sanchez Diop Other Interventions: Discharge Summary Assessment (RN) Last Done: 09/18/23 10:26 Supervising Physician Co-Signing Physician Notes I personally examined the patient and verified guerrero points of history and exam, discussed case, and agree with decision making and plan documented by Dr. Singer. Patient overall with improvement of symptoms, breathing with much improvement, no chest pain or palpitations. Patient appears comfortable, lungs clear b/l to auscultation, regular rate and rhythm, no acute distress. Obtained nocturnal pulse oximetry prior to discharge to order home on oxygen for nighttime use prior to outpatient sleep study. Patient was advised to discuss consideration of ACTH stimulation test outpatient due to concerns about possible adrenal insufficiency. Patient is understanding. Patient continues to struggle with his back pain, advised him to follow-up with pain management on discharge, he agrees. Patient will follow-up with PCP as well. Resident Activity Tracking Resident Involvement: Resident Care Provided Care Provided: Adult [facility] Medicine
[2023-09-18] MEDS: ACETAMINOPHEN 500 MG TAB PO ONE (09:37)
[2023-09-19 10:24] LABS: pH ABG 7.51 (7.35-7.45)
== END 2023-09-18 13:00 | disposition home or self-care (01) | DRG 871 ==
LOC: ED 13:42 → SUATTDRO 17:22 → 2S 17:22 → 1E 09-10 12:25 → 4W 09-13 16:38

== ENCOUNTER 2023-11-27 14:36 | Inpatient (IN) ==
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
[2023-11-27] MEDS: oxyCODONE HCL IR 5 MG TAB (IMMEDIATE RELEASE) PO STA (14:59)
[2023-11-27] MEDS: dilTIAZem HCl 5 MG/ML 5 ML VIAL IV STA (15:18)
[2023-11-27] MEDS: SODIUM CHLORIDE 0.9% 1,000 ML IV ONE (15:24)
--- NOTE | 2023-11-27 15:30 | XRay Report ---
XR chest 1V portable HISTORY: Dyspnea COMPARISON: Chest 09/26/2023. FINDINGS: No pneumothorax. The heart is mildly enlarged. Cervical and lumbar spinal fusion hardware i s noted. Trace right pleural effusion. There is perihilar interstitial/vascular thickening as pronoun navi within the right lung base. This likely represents pulmonary edema. Hazy appearance to the right medial lung base also likely corresponds the pulmonary edema. A superimposed pneumonia would be diffi cult to exclude. There are calcifications within the aortic knob. IMPRESSION: 1. Cardiomegaly with mild interstitial pulmonary edema and a trace right pleural effusion. 2. Hazy appearance to the right medial lung base likely corresponds to the pulmonary edema. A superim posed pneumonia is not excluded. ACT 112: Negative or not required by law. Electronically signed by: Andres Carty M.D. 11/27/2023 3:29 PM
[2023-11-27 15:47] LABS: Base Excess VBG 0.3 mEq/L; HCO3 VBG 24 mmol/L; Oxygen Saturation VBG 91.3 %; PCO2 VBG 33 mmHg (38-50); PO2 VBG 59 mmHg; pH VBG 7.46 (7.36-7.41)
[2023-11-27 16:03] LABS: Basophils # (auto) 0.03 K/uL (0.00-0.20); Basophils % (auto) 0.4 %; Eosinophils # (auto) 0.15 K/uL (0.00-0.50); Eosinophils % (auto) 1.8 %; Hematocrit (blood only) 35.5 % (42.0-52.0); Hemoglobin 11.9 g/dl (14.0-18.0); Immature Granulocytes # (auto) 0.03 K/uL (0.01-0.20); Immature Granulocytes % (auto) 0.4 %; Lymphocytes # (auto) 1.36 K/uL (1.20-3.40); Lymphocytes % (auto) 16.5 %; Mean Corpuscular Hemoglobin 30.2 pg (25.0-34.0); Mean Corpuscular Hgb Conc 33.5 g/dL (32.0-36.0); Mean Corpuscular Volume 90.1 fL (80.0-100.0); Mean Platelet Volume 10.6 fL (9.4-12.4); Monocytes # (auto) 0.84 K/uL (0.11-0.59); Monocytes % (auto) 10.2 %; Neutrophils # (auto) 5.81 K/uL (1.40-6.50); Neutrophils % (auto) 70.7 %; Platelet Count 205 K/uL (130-400); RDW Coefficient of Variation 14.6 % (11.5-14.5); RDW Standard Deviation 47.8 fL (36.4-46.3); Red Blood Count 3.94 M/uL (4.70-6.10); White Blood Count 8.22 K/ul (4.8-10.8)
[2023-11-27] MEDS: dilTIAZem HCL 125 MG in DEXTROSE 5% 100 ML IV SCH (16:20)
[2023-11-27 16:21] LABS: Albumin Globulin Ratio 1.6 (0.9-2); Albumin Level 4.1 gm/dl (3.4-5.0); BUN Creatinine Ratio 25.4 (10-20); Bilirubin,Total 0.7 mg/dl (0.2-1.0); Calcium 9.4 mg/dl (8.6-10.3); Creatinine Clr Calc Pharmacy 52.4 ml/min; Est GFR (African American) 57.2 ml/min; Est GFR (Non-African American) 49.3 ml/min; Globulin 2.5 gm/dl (2.5-4.0); Potassium 4.2 mmol/L (3.5-5.1); Total Protein 6.6 gm/dl (6.0-8.3)
[2023-11-27 16:28] LABS: Troponin I High Sensitivity 19.2 pg/ml (0-20)
[2023-11-27 16:34] LABS: INR 2.6 (0.9-1.1); Prothrombin Time 25.8 Seconds (9.0-12.0)
[2023-11-27 16:49] LABS: Adenovirus PCR Not Detected (NotDetected); Bordetella parapertussis PCR Not Detected (NotDetected); Bordetella pertussis PCR Not Detected (NotDetected); Chlamydia pneumoniae PCR Not Detected (NotDetected); Coronavirus 229E PCR Not Detected (NotDetected); Coronavirus CoV-2 (COVID19)PCR Not Detected (NotDetected); Coronavirus HKU1 PCR Not Detected (NotDetected); Coronavirus NL63 PCR Not Detected (NotDetected); Coronavirus OC43PCR Not Detected (NotDetected); Human Metapneumovirus PCR Not Detected (NotDetected); Influenza A PCR Not Detected (NotDetected); Influenza B PCR Not Detected (NotDetected); Mycoplasma pneumoniae PCR Not Detected (NotDetected); Parainfluenza Virus 1 PCR Not Detected (NotDetected); Parainfluenza Virus 2 PCR Not Detected (NotDetected); Parainfluenza Virus 3 PCR Not Detected (NotDetected); Parainfluenza Virus 4 PCR Not Detected (NotDetected); Respiratory Syncytial VirusPCR Not Detected (NotDetected); Rhinovirus/Enterovirus PCR Not Detected (NotDetected)
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
[2023-11-27] MEDS: METOPROLOL TARTRATE 1 MG/ML VIAL IV STA (17:04)
[2023-11-27] MEDS: FUROSEMIDE 40 MG/4 ML VIAL IV ONE (17:14)
[2023-11-27] MEDS: LACTATED RINGER'S 500 ML IV STA (17:31)
[2023-11-27] MEDS: PANTOprazole 40 MG in SYRINGE 0 ML IV STA (18:27)
[2023-11-27] MEDS: FAMOTIDINE 20MG IV PUSH 20 MG/5 ML SYR IV STA (18:27)
[2023-11-27] MEDS: OPTIRAY 320 125ml IV ONE (18:53)
[2023-11-27 19:17] LABS: Appearance Urine Clear (Clear); Bacteria Urine Automated None Seen (None Seen); Bilirubin Urine Negative (Negative); Blood Urine Negative (Negative); Cast Urine Automated 0-2 /lpf (0-2); Color Urine Yellow; Epithelial Cell Urine Auto 0-2 /hpf (0-2); Glucose Urine UA Negative (Negative); Ketones Urine Negative (Negative); Leukocyte Esterase Urine Negative (Negative); Nitrite Urine Negative (Negative); Protein Urine Trace (Negative); RBC Urine Automated 0-2 /hpf (0-2); Specific Gravity Urine 1.018 (1.000-1.030); Urobilinogen Urine Negative (Negative); WBC Urine Automated 0-5 /hpf (0-5)
--- NOTE | 2023-11-27 20:08 | CT Scan Report ---
Exam(s): CTA CHEST W/WO Contrast IV Amt: 118 ml optiray 320 EXAM: CT Angiography Chest Without and With Intravenous Contrast CLINICAL HISTORY: Reason for exam: chest/back pain. TECHNIQUE: Axial computed tomographic angiography images of the chest without and with intravenous contrast. CTDI is 126.47 mGy and DLP is 2774.96 mGy-cm. Automated exposure control was utilized for the study. A dose lowering technique was utilized adhering to the principles of ALARA. MIP reconstructed images were created and reviewed. CONTRAST: Patient received 118 ml optiray 320 of IV contrast COMPARISON: None FINDINGS: Pulmonary arteries: Unremarkable. No pulmonary embolus identified. Aorta: Atherosclerotic changes of the aorta. No aortic aneurysm or dissection. Lungs: Interlobular septal thickening is suggestive of fluid overload. Dependent atelectasis bilaterally. Probable scattered atelectasis on the postcontrast images. No mass. Pleural space: Moderate right and small left pleural effusions. No pneumothorax. Heart: Coronary artery and aortic valve calcifications. Mild cardiomegaly. No significant pericardial effusion. No evidence of RV dysfunction. Mediastinum: Nonspecific prominent mediastinal lymph nodes. Bones/joints: Degenerative changes of the spine. Postsurgical changes of the lower thoracic spine and upper lumbar spine partially visualized. No acute fracture. No dislocation. Soft tissues: Unremarkable. Lymph nodes: See above. Liver: Small hypodensity in the right liver is too small to definitively characterize. Kidneys and ureters: Small right renal cyst. IMPRESSION: 1. No pulmonary embolus identified. 2. Atherosclerotic changes of the aorta. No aortic aneurysm or dissection. 3. Interlobular septal thickening is suggestive of fluid overload. 4. Moderate right and small left pleural effusions. Electronically signed by: Nain Ramon M.D. 11/27/23 20:07 PM
--- NOTE | 2023-11-27 20:12 | CT Scan Report ---
Exam(s): CT ABDOMEN + PELVIS With Contrast IV Amt: 118 ml optiray 320 EXAM: CT Abdomen and Pelvis With Intravenous Contrast CLINICAL HISTORY: Reason for exam: Right sided abdominal pain, hypotension, tachycardia. TECHNIQUE: Axial computed tomography images of the abdomen and pelvis with intravenous contrast. CTDI is 27.28 mGy and DLP is 1276.26 mGy-cm. Automated exposure control was utilized for the study. A dose lowering technique was utilized adhering to the principles of ALARA. CONTRAST: Patient received 118 ml optiray 320 of IV contrast COMPARISON: CT abdomen/pelvis on 10/05/2023 FINDINGS: Lung bases: Please see accompanying CT chest for further details. ABDOMEN: Liver: Trace perihepatic fluid. Gallbladder and bile ducts: Pericholecystic edema could be secondary to fluid overload. No ductal dilation. Pancreas: Unremarkable. No mass. No ductal dilation. Spleen: Unremarkable. No splenomegaly. Adrenals: Unremarkable. No mass. Kidneys and ureters: Nonspecific bilateral perinephric fat stranding. Probable right renal cysts. Evaluation is limited by artifact and could be further evaluated with ultrasound if clinically indicated. No hydronephrosis or obstructing ureteral stone. Stomach and bowel: Evaluation of the stomach is limited underdistention. No mucosal thickening. No bowel obstruction or inflammation. PELVIS: Appendix: Normal appendix. Bladder: Winter catheter in a decompressed bladder limits evaluation. Reproductive: Unremarkable as visualized. ABDOMEN and PELVIS: Intraperitoneal space: Unremarkable. No free air. No significant fluid collection. Bones/joints: Degenerative changes of the spine. Postsurgical changes from T11-S1. Surgical fixation of the right SI joint. No acute fracture. No dislocation. Soft tissues: Small fat-containing right and one hernia. Small fat- containing ventral hernia. Vasculature: Atherosclerotic changes of the vasculature. No abdominal aortic aneurysm or dissection. Mild ectasia of the abdominal aorta. Phleboliths of the pelvis. Lymph nodes: Unremarkable. No enlarged lymph nodes. IMPRESSION: Pericholecystic edema could be secondary to fluid overload. No other acute abnormality in the abdomen or pelvis. Electronically signed by: Nain Ramon M.D. 11/27/23 20:11 PM
[2023-11-27] MEDS ORDERED: DICYCLOMINE HCL 10 MG CAP PO PRN (20:15)
--- NOTE | 2023-11-27 20:22 | Electrocardiogram Report ---
Test Reason : Blood Pressure : / mmHG Vent. Rate : 131 BPM Atrial Rate : 000 BPM P-R Int : 000 ms QRS Dur : 088 ms QT Int : 328 ms P-R-T Axes : 000 042 048 degrees QTc Int : 484 ms Atrial fibrillation with rapid ventricular response with premature ventricular or aberrantly conducte d complexes Abnormal ECG When compared with ECG of 05-OCT-2023 17:32, No significant change was found Confirmed by Greg Patterson ([id number]) on 11/27/2023 8:22:25 PM Referred By: Confirmed By:Greg Patterson
[2023-11-27 21:08] LABS: Magnesium 1.6 mg/dl (1.7-2.4)
[2023-11-27] MEDS: ACETAMINOPHEN 500 MG TAB PO SCH (21:25)
[2023-11-27] MEDS: WARFARIN SOD 1.25 MG TAB PO SCH (21:26)
[2023-11-27] MEDS: MULTIVITAMIN TAB PO SCH (21:26)
[2023-11-27] MEDS: ROSUVASTATIN CALCIUM 20 MG TAB PO SCH (21:27)
[2023-11-27] MEDS: PARoxetine HCL 20 MG TAB PO SCH (21:27)
[2023-11-27] MEDS: SUCRALFATE 1 GM TAB PO SCH (21:28)
[2023-11-27] MEDS: diazePAM 5 MG TABLET PO SCH (21:30)
[2023-11-27] MEDS: STAT IV Infusion **Titration per Protocol STA (21:42)
[2023-11-27] MEDS: MAGNESIUM SULFATE / D5W 1 GM/100 ML BAG IV SCH (22:17)
[2023-11-28] MEDS: oxyCODONE HCL IR 5 MG TAB (IMMEDIATE RELEASE) PO PRN ×2 (00:15→20:34)
[2023-11-28] MEDS: METOPROLOL TARTRATE 1 MG/ML VIAL IV STA (03:54)
[2023-11-28] MEDS: oxyCODONE HCL IR 5 MG TAB (IMMEDIATE RELEASE) PO STA (05:42)
[2023-11-28] MEDS: dilTIAZem HCl 5 MG/ML 5 ML VIAL IV STA (05:43)
--- NOTE | 2023-11-28 06:37 | Communication Note ---
Date of Service: November 28, 2023 Notified by nursing that patient continues to have chest discomfort (as present on admission) with deep breathing. Telemetry shows HR ranging from 100-130s, BP elevated from prior and currently at 130s/100s. EKG obtained which showed afib with RVR. One time dose of 2.5mg IV lopressor given, approximately 1 hour later there was no significant change in HR or BP. Ordered 5mg IV diltiazem at this time. Patient also endorsing pain which was not improved with oxycodone at 12am, so additional one dose of oxycodone ordered. Considering patient's significant fluctuations with BP since arrival, all rate control medications discussed with Dr. Melgoza prior to ordering. Resident Activity Tracking Resident Involvement: Resident Care Provided Care Provided: Adult [facility]
[2023-11-28 07:44] LABS: Basophils # (auto) 0.04 K/uL (0.00-0.20); Basophils % (auto) 0.4 %; Eosinophils # (auto) 0.15 K/uL (0.00-0.50); Eosinophils % (auto) 1.6 %; Hematocrit (blood only) 38.2 % (42.0-52.0); Hemoglobin 12.6 g/dl (14.0-18.0); Immature Granulocytes # (auto) 0.04 K/uL (0.01-0.20); Immature Granulocytes % (auto) 0.4 %; Lymphocytes # (auto) 1.46 K/uL (1.20-3.40); Lymphocytes % (auto) 15.3 %; Mean Corpuscular Hemoglobin 30.1 pg (25.0-34.0); Mean Corpuscular Volume 91.4 fL (80.0-100.0); Mean Platelet Volume 10.8 fL (9.4-12.4); Monocytes # (auto) 0.86 K/uL (0.11-0.59); Neutrophils % (auto) 73.3 %; Platelet Count 194 K/uL (130-400); RDW Coefficient of Variation 14.6 % (11.5-14.5); RDW Standard Deviation 48.9 fL (36.4-46.3); Red Blood Count 4.18 M/uL (4.70-6.10); White Blood Count 9.55 K/ul (4.8-10.8)
[2023-11-28 08:06] LABS: INR 1.8 (0.9-1.1); Prothrombin Time 18.3 Seconds (9.0-12.0)
[2023-11-28 08:18] LABS: Calcium 9.3 mg/dl (8.6-10.3); Magnesium 1.9 mg/dl (1.7-2.4); Potassium 3.9 mmol/L (3.5-5.1)
[2023-11-28 08:23] LABS: BUN Creatinine Ratio 19.5 (10-20); Creatinine Clr Calc Pharmacy 45.3 ml/min; Est GFR (Non-African American) 41.5 ml/min
--- NOTE | 2023-11-28 08:23 | Electrocardiogram Report ---
Test Reason : Blood Pressure : / mmHG Vent. Rate : 114 BPM Atrial Rate : 097 BPM P-R Int : 000 ms QRS Dur : 090 ms QT Int : 320 ms P-R-T Axes : 000 019 026 degrees QTc Int : 441 ms Atrial fibrillation with rapid ventricular response Abnormal ECG When compared with ECG of 27-NOV-2023 15:03, HR has decreased by 17 bpm Confirmed by Addison Salas ([id number]) on 11/28/2023 8:23:31 AM Referred By: REFERRED SELF Confirmed By:Addison Salas
[2023-11-28] MEDS: PANTOprazole 40 MG TAB PO SCH (08:30)
[2023-11-28] MEDS: MAGNESIUM SULFATE / D5W 1 GM/100 ML BAG IV ONE (10:57)
[2023-11-28] MEDS: POTASSIUM CHLORIDE 10 MEQ TABCR PO STA (10:57)
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
[2023-11-28] MEDS ORDERED: METHOCARBAMOL 500 MG TABLET PO SCH (15:30)
[2023-11-28] MEDS ORDERED: oxyCODONE HCL IR 5 MG TAB (IMMEDIATE RELEASE) PO PRN (17:19)
--- NOTE | 2023-11-28 17:25 | Hospitalist Progress Note ---
Date of Service November 28, 2023 Assessment & Plan (1) Acute heart failure with preserved ejection fraction: Plan: Presents with bilateral pleuritic pains, bilateral pleural effusions, rapid atrial fibrillation, elevated BNP, acute on chronic HFpEF Lasix 40mg IV given in ER, 500ml LR bolus given for hypotension related to diltiazem and metoprolol use given for rapid A-fib Remains slightly volume overloaded-start Lasix 20 mg p.o. daily tomorrow as per cardiology recommendation now that blood pressures are improved Daily weight, strict I&Os Low Na, heart healthy diet, fluid restrict 1500ml With lower rib pain likely due to pleural effusions as troponin negative x 3, not ACS. ECG without ischemic changes (2) Atrial fibrillation with rapid ventricular response: Plan: Rates remain elevated in the 1 teens to 120s, attempts at rate control with IV medication resulted in hypotension requiring fluid bolus Appreciate cardiology consultation-rate control with metoprolol succinate 25 mg daily, stop home diltiazem Plan for cardioversion if INR can remain therapeutic over the next 3 weeks- patient has typically been noncompliant with INR checks in the past it is burdensome for him to make arrangements to get blood draws Continue anticoagulation with warfarin, INR 1.8 today, follow INR in the morning Antiarrhythmics are not a good option as he has been typically noncompliant as per cardiology for safety monitoring/surveillance Digoxin not a good choice for him again also due to renal issues as well as compliance with monitoring levels, etc. Monitor on telemetry (3) Hypotension: Plan: Secondary to diltiazem and metoprolol IV given in ER, now improved Cortisol level appropriate Starting Toprol-XL low-dose this evening-monitor BP (4) Gastritis: Plan: Suspect cause of his chest pain in addition to rapid HR. Unknown when pantoprazole was discontinued. This was diagnosed on previous admission IV pantoprazole and famotidine given in the ER Continue pantoprazole 40mg PO BID Carafate 1g QID as needed CT for dissection and CT A/P to assess for alternative causes of chest and abdominal pain is negative (5) Diarrhea: Plan: Stool and c. diff PCR ordered but he has not had any further diarrhea (6) CKD (chronic kidney disease), stage III: Plan: Creatinine around baseline at 1.6 Renally dose medications and avoid nephrotoxins Follow BMP Plan Chronic medical conditions: Anxiety - continue diazepam and paroxetine Spinal stenosis - chronic back pain managed by oxycodone PRN-he is requesting an increased dose-increase to 10 mg as needed for severe pain, use acetaminophen PO 1g TID VTE Prophylaxis - warfarin Disposition -continued stay on PCU Admission and Anticipated Discharge Date Admission Date: November 27, 2023 Subjective Patient reports ongoing chronic pain in his neck and back. The pain around the bottoms of both ribs and in the epigastric region is better except when he sits up and takes a deep breath. Patient is requesting an increased dose of oxycodone to 10 mg He has been in rapid atrial fibrillation with rates in the 110s to 120s since admission. He had episodes of hypotension overnight with chest pain that is now resolved I discussed his care with cardiology nurse practitioner Physical Exam Constitutional: well developed and + disheveled Respiratory: normal respiratory effort, lungs clear to auscultation Cardiovascular: Rate/Rhythm: + tachycardic and + irregularly irregular Heart Sounds: no murmur Extremities: + edema (Trace pitting edema legs bilaterally) Gastrointestinal (Abdomen): normal bowel sounds, soft, nontender, no hepatosplenomegaly Psychiatric: A+Ox3, euthymic affect Results & Data Results & Data Vital Signs (Past 12 Hours) Vital Signs Temp Pulse Pulse Resp BP Pulse Ox O2 Del Method 11/28/23 15:06 36.6 C 98 H 17 121/88 89 L Room Air 11/28/23 14:26 107 H 11/28/23 11:00 36.7 C 114 H 19 136/89 93 Room Air 11/28/23 08:00 Room Air 11/28/23 07:58 116 H 11/28/23 07:51 36.7 C 115 H 19 108/72 91 Room Air 11/28/23 05:41 138/103 H Laboratory Results BMP, magnesium, troponin, INR reviewed PG Care Time/CCT Total # of Minutes Spent Total Time Spent with Patient: Total time spent is greater than 50% in coordination of care (as documented) at patient's floor/unit and/or counseling patient: Coding Level of Care Code 52269 SUB INP/OBS CARE 3/50MIN Diagnoses Acute heart failure with preserved ejection fraction I50.31 Atrial fibrillation with rapid ventricular response I48.91 Hypotension I95.9 Gastritis K29.70 Diarrhea R19.7 CKD (chronic kidney disease), stage III N18.30
[2023-11-28] MEDS: METOPROLOL SUCC 25MG EXT REL TAB PO SCH (20:28)
[2023-11-29 07:52] LABS: Basophils # (auto) 0.03 K/uL (0.00-0.20); Basophils % (auto) 0.4 %; Eosinophils # (auto) 0.17 K/uL (0.00-0.50); Eosinophils % (auto) 2.3 %; Hematocrit (blood only) 37.7 % (42.0-52.0); Hemoglobin 12.1 g/dl (14.0-18.0); Immature Granulocytes # (auto) 0.03 K/uL (0.01-0.20); Immature Granulocytes % (auto) 0.4 %; Lymphocytes % (auto) 14.6 %; Mean Corpuscular Hemoglobin 29.7 pg (25.0-34.0); Mean Corpuscular Hgb Conc 32.1 g/dL (32.0-36.0); Mean Corpuscular Volume 92.4 fL (80.0-100.0); Mean Platelet Volume 10.9 fL (9.4-12.4); Monocytes # (auto) 0.79 K/uL (0.11-0.59); Monocytes % (auto) 10.5 %; Neutrophils # (auto) 5.42 K/uL (1.40-6.50); Neutrophils % (auto) 71.8 %; Platelet Count 163 K/uL (130-400); RDW Coefficient of Variation 14.6 % (11.5-14.5); RDW Standard Deviation 49.4 fL (36.4-46.3); Red Blood Count 4.08 M/uL (4.70-6.10); White Blood Count 7.54 K/ul (4.8-10.8)
[2023-11-29 08:22] LABS: INR 1.7 (0.9-1.1); Prothrombin Time 17.2 Seconds (9.0-12.0)
[2023-11-29] MEDS: FUROSEMIDE 20 MG TAB PO SCH (08:43)
[2023-11-29 08:45] LABS: BUN Creatinine Ratio 17.5 (10-20); Calcium 9.4 mg/dl (8.6-10.3); Est GFR (African American) 42.1 ml/min; Est GFR (Non-African American) 36.3 ml/min; Potassium 4.6 mmol/L (3.5-5.1)
--- NOTE | 2023-11-29 08:46 | Cardiology Progress Note ---
Date of Service November 29, 2023 Assessment & Plan (1) Acute heart failure with preserved ejection fraction: Plan: Suspect he is better off having BB as opposed to CCB. Would try to titrate up on dose of BB until HR resting 70-80bpm. Will give extra 25mg metoprolol XL now. If HR remains stable may be able to be DC later today. If he is DC in the next 24 hours-I would like to see him in the office next week. Will order 24 hour Holter monitor after he is on BB for about a week. Will also get ECHO done as OP to reassess the MR and LA size as well as the LV function. If able to be DC, would hold the diltiazem and DC on just BB, low dose lasix and the warfarin. (2) Atrial fibrillation with rapid ventricular response: Plan: ok to cont warfarin; goal INR 2-3. Discussed getting home PT machine post DC to do home finger sticks. Plan Impression: 1. Afib 2. Hypertension 3. Dyslipidemia 4. Echocardiogram [facility] 09/2023 showing normal LVF, EF 55%, severe left atrial dilatation, moderate mitral valve regurgitation 5. HFpF 6. Chronic kidney disease Mr. Coleman is difficult to create a care plan for given his unwillingness or inability to make it to follow up appointments. Thus far a rate control approach has been pursued for his afib, but given his heart failure, he would likely do better in sinus rhythm. I doubt he will stay in sinus rhythm without antiarrhythmics given his left atrial dilation, but without consistent follow up antiarrhythmics should not be prescribed. I discussed with him that if he can get consistent INR checks over the next three weeks and he stays therapeutic, we could perform electrical cardioversion. The procedure was described and risks and benefits discussed including risk of stroke both during the cardioversion and after. He would need to be especially consistent with his INR checks and warfarin for the month after the cardioversion as risk for stroke is about 10% in that time frame without blood thinner. I don't think a more aggressive rate control strategy could be undertaken as he is at times hypotensive. I will change him from diltiazem to metoprolol. He was originally placed on short acting dilt during a period of hypotension and significant JACK of unclear etiology and then moved to long acting, but beta segundo would be a better choice given his heart failure. I don't think his kidney function and poor ability to follow up allow for digoxin therapy. More aggressive treatment of his heart failure would be helpful but I don't think he will be able to afford Entresto or an SGLT2 inhibitor. He did not meet income requirements for financial assistance for DOACs and his out of pocket costs are high. Could consider spironolactone and ARB, but he will need close monitoring of his kidney function and I have concerns about him again becoming hypotensive. I would wait to initiate in the outpatient setting if he is doing ok with the metoprolol. He could be discharged with furosemide 20 mg daily with a bmp in a week. Admission and Anticipated Discharge Date Admission Date: November 27, 2023 Anticipated date of discharge: 11/29/23 Subjective Reviewed his prior hx and hospitalization with PND as well as acute SOB and Afib with RVR. Patient reports ongoing chronic pain in his neck and back. The pain around the bottoms of both ribs and in the epigastric region is better except when he sits up and takes a deep breath. Patient is requesting an increased dose of oxycodone to 10 mg He has been in rapid atrial fibrillation with rates in low 100s. BP ok and reviewed. He had an a dose of metoprolol XL last pm. Review of Systems Review of Systems: All systems reviewed & are unremarkable except as noted in HPI & below Respiratory: + dyspnea on exertion breathing better Cardiovascular: Additional Comments: no chest pain noted Neurologic: no symptoms of stroke Psychiatric: pleasant Physical Exam Constitutional: WD/WN, vitals as above Respiratory: normal respiratory effort, lungs clear to auscultation Cardiovascular: Rate/Rhythm: + abnormal rate and + abnormal rhythm Extremities: no edema Gastrointestinal (Abdomen): soft NT Skin: no rashes, warm and dry Neurologic: moves all extremities and awake Psychiatric: Orientation: oriented x 3 Results & Data Vital Signs (Past 12 Hours) Vital Signs Temp Pulse Pulse Resp BP Pulse Ox O2 Del Method 11/29/23 08:11 105 H 11/29/23 08:11 Room Air 11/29/23 07:08 36.3 C L 105 H 19 135/79 97 Room Air 11/29/23 03:34 36.6 C 105 H 18 112/76 95 Room Air 11/28/23 22:55 111 H 11/28/23 22:26 36.6 C 123 H 18 114/70 92 Room Air 11/28/23 21:00 Room Air Laboratory Results CBC hgb 12.1; BMP still pending
[2023-11-29] MEDS: METOPROLOL SUCC 25MG EXT REL TAB PO STA (09:28)
[2023-11-29] MEDS: METOPROLOL SUCC 25MG EXT REL TAB PO ONE (10:54)
--- NOTE | 2023-11-29 17:19 | Discharge Summary ---
Discharge Summary Date of Service November 29, 2023 Principal Dx & Hospital Course #1 = Principal Diagnosis (1) Acute heart failure with preserved ejection fraction: Presents with bilateral pleuritic pains, bilateral pleural effusions, rapid atrial fibrillation, elevated BNP, acute on chronic HFpEF Lasix 40mg IV given in ER, 500ml LR bolus given for hypotension related to diltiazem and metoprolol use given for rapid A-fib Remains slightly volume overloaded-started Lasix 20 mg p.o. daily as per cardiology recommendation now that blood pressures are improved Daily weight, strict I&Os Low Na, heart healthy diet, fluid restrict 1800ml on discharge With lower rib pain likely due to pleural effusions as troponin negative x 3, not ACS. ECG without ischemic changes Follow BMP in 3 days-gave Rx for labs Stable for dc to home and Cardiology plans to repeat ECHO as outpt (2) Atrial fibrillation with rapid ventricular response: Rates remained elevated in the 1 teens to 120s, attempts at rate control with IV medication resulted in hypotension requiring fluid bolus Appreciate cardiology consultation-rate control with metoprolol succinate 25 mg daily, stop home diltiazem Increased Toprol XL dose to 25mg po bid on day of discharge and rates improved to 90s-low 100s--> stable for discharge Plan for cardioversion if INR can remain therapeutic over the next 3 weeks- patient has typically been noncompliant with INR checks in the past it is burdensome for him to make arrangements to get blood draws Continue anticoagulation with warfarin, INR 1.7 today, follow INR in 3 days as outpt Antiarrhythmics are not a good option as he has been typically noncompliant as per cardiology for safety monitoring/surveillance Digoxin not a good choice for him again also due to renal issues as well as compliance with monitoring levels, etc. COntinue Toprol XL 25mg po bid on discharge, plan for outpt Holter monitor and close f/u with Cardiology in 1 week (3) Hypotension: Secondary to diltiazem and metoprolol IV given in ER, now improved Cortisol level appropriate Started Toprol-XL 25mg po bid and BPs tolerated well (4) Gastritis: Suspect cause of his chest pain in addition to rapid HR. Unknown when pantoprazole was discontinued. This was diagnosed on previous admission IV pantoprazole and famotidine given in the ER Continue pantoprazole 40mg PO BID on discharge along with prn sucralfate CT for dissection and CT A/P to assess for alternative causes of chest and abdominal pain is negative Improving (5) Diarrhea: Stool and c. diff PCR ordered but he has not had any further diarrhea (6) CKD (chronic kidney disease), stage III: Creatinine around baseline at 1.6-1.8 Renally dose medications and avoid nephrotoxins Follow BMP as outpt now that he is on lasix Plan Chronic medical conditions: Anxiety - continue diazepam and paroxetine Spinal stenosis - chronic back pain managed by oxycodone PRN-he is requesting an increased dose-increase to 10 mg as needed for severe pain, use acetaminophen prn, f/u with PCP. He is considering medical marijuana card for pain so he can stop all opioids VTE Prophylaxis - warfarin Disposition -dc to home Notes For Next Care Provider Check BMP, INR on Saturday12/01/23--? Rx given at time of discharge with results to go to PCP and Cardiology Medication Changes From Visit Added Toprol XL 25mg po bid Discontinued diltiazem Added lasix 20mg po qAM Added Protonix 40mg po bid Admission HPI Per Admitting Provider Sawyer Hoff is a 73 year old male with permanent atrial fibrillation who presents to the ER with generalized pain and shortness of breath. He is not clear on his history as reports symptoms for the last 6 months but much worse th e last few days. He normally does not have chest pain however and this appears to be new over the last few days. Shortness of breath is associated with chest pain. Both are much worse on lying down. I admitted him in September with similar symptoms with gastritis and a. fib RVR at that time. He was having diarrhea at that time and appeared hypovolemic but trial of rate control with diltiazem led to hypotension and ICU admission for vasopressors the following day despite fluid resuscitation. He returned later in September with a similar presentation again and was diagnosed with Campylobacter. On discharge he was supposed to be taking pantoprazole and famotidine however he reports no longer taking these but does not know why (he thinks the prescription just wasn't renewed). He returns today in a. fib RVR despite having taken his diltiazem this morning. Labs/imaging/history suggest he is more hypervolemic at this time however again attempts at rate control with diltiazem and metoprolol led to hypotension when seen therefore diltiazem was discontinued and he was given 500ml bolus. He does note since his rate is better controlled his shortness of breath and chest pain have improved a little. He was lightheaded while just lying in bed when hypotensive in the ER down to 78/55. Chest pain currently 4/10, radiating to back (although he has chronic back pain), worse on lying flat, associated with shortness of breath. No nausea or diaphoresis. He is also having right sided abdominal pain on palpation which he thinks he had during his prior hospitalizations. He has had diarrhea for the last 2 days with 2 loose BM/day. No fever or chills. No nasal congestion, cough, sinus pain. His warfarin is currently on hold due to supratherapeutic INR. Discharge Exam Constitutional well developed and + disheveled Respiratory normal respiratory effort, lungs clear to auscultation Cardiovascular Rate/Rhythm: regular rate and + irregularly irregular Heart Sounds: no murmur Extremities: + edema (Trace pitting edema legs bilaterally) Gastrointestinal (Abdomen) normal bowel sounds, soft, nontender, no hepatosplenomegaly Psychiatric A+Ox3, euthymic affect Updated Medication List Medication Instructions Recorded Confirmed Type multivitamin 1 tab PO HS 01/28/18 11/27/23 History paroxetine HCl 40 mg tablet (Paxil) 40 mg PO HS 01/04/22 11/27/23 History paroxetine HCl 20 mg tablet 20 mg PO HS 04/13/22 11/27/23 History rosuvastatin 40 mg tablet 40 mg PO HS 04/13/22 11/27/23 History cholecalciferol (vitamin D3) 25 25 mcg PO HS 02/12/23 11/27/23 History mcg (1,000 unit) tablet (Vitamin D3) diazepam 5 mg tablet 5 mg PO BID 02/12/23 11/27/23 History warfarin 2.5 mg tablet 3.75 mg PO HS 04/22/23 11/27/23 History oxycodone 5 mg tablet 5 mg PO TID PRN pain #9 tabs 10/01/23 11/27/23 Rx dicyclomine 10 mg capsule 10 mg PO TID PRN abdominal pain 10/05/23 11/27/23 Rx #30 caps sucralfate 1 gram tablet 1 g PO QID PRN Gi Upset 11/27/23 11/27/23 History furosemide 20 mg tablet 20 mg PO QAM #30 tabs 11/29/23 Rx metoprolol succinate 25 mg 25 mg PO BID #60 tabs 11/29/23 Rx tablet,extended release 24 hr pantoprazole 40 mg tablet,delayed 40 mg PO BID #60 tabs 11/29/23 Rx release Hospital Stay Data Consultations 11/27/23 16:40 ED Decision to Admit Stat 11/28/23 10:28 Consult Cardiology Routine Diagnostic Imagining Performed 11/27/23 17:49 CT Abd and Pelvis [CT abd pelvis IV con only] Stat CT angio chest dissec wo/w con Stat Pending Results Patient Have Any Pending Studies at Discharge: No Discharge Instructions Given to Patient (Per Discharging Provider) You were admitted with pain in your upper abdomen and ribs which may be from inflammation in your stomach or from the fluid around the bottoms of your lungs. Please take Protonix twice a day as an antacid for stomach inflammation. You were started on lasix as a water pill to get rid of extra fluid around the lungs. Your atrial fibrillation was causing your heart rate to be too fast which also contributes to the build up of fluid around the lungs. You were started on metoprolol to replace your diltiazem. Please follow up with the Senior Laboratory Technician in [address] Ross would like to arrange a Holter monitor for you to see what your heart rate and rhythm are doing at that point in time. Please have your Coumadin level (INR) checked on Saturday along with your kidney function. A prescription for this will be given to you on discharge. Call your Primary Care doctor if any of the following symptoms or problems start or get worse: * Shortness of breath or difficulty breathing * Wake up at night short of breath * Chest pain * Cough * Swelling of your hands, feet, or legs * More fatigued or tired with your normal activity * Palpitations - sudden fast heart beats WEIGHT * Weigh yourself every morning after using the bathroom. * Use the same scale. * Wear the same amount of clothing. * Write your weight down on a chart. * Call your Primary Care doctor if you gain more than 2-3 pounds in 1-2 days. MEDICATIONS * Use this discharge instruction sheet for medication instructions. * Take your medications at the time your doctor ordered. * Do not skip a dose of your medicines. * If you miss a dose of medicine, take it as soon as possible, but DO NOT DOUBLE A DOSE. * Read your medicine information when you get home. * Know all of the side effects of your medicine. If in doubt, ask your pharmacist * Call your Primary Care doctor's office if you have any side effects. * Be sure all of your doctors know what medicine and herbs you take (including cold, flu, and herbal medicine). Take the following with you to your follow-up doctor appointments: * Weight Chart * Medication List * List of questions Do not drink excessive alcohol, beer or wine. Total Time Total Time Spent Total Time Spent (In Minutes): 40 min Total Time Includes: Examination of the Patient, Discharge Planning, Medication Reconciliation and Communication With Other Providers (Cardiology CLAUDIA Ramos) Coding Level of Care Code 57878 INP/OBS DISCH >30 MIN Diagnoses Acute heart failure with preserved ejection fraction I50.31 Atrial fibrillation with rapid ventricular response I48.91 Hypotension I95.9 Gastritis K29.70 Diarrhea R19.7 CKD (chronic kidney disease), stage III N18.30
[2023-11-29] MEDS: METOPROLOL SUCC 25MG EXT REL TAB PO SCH (17:48)
[2023-12-03] MEDS ORDERED: PROPOFOL IV EMULSION 10 MG/ML 20 ML VIAL IV ONE (08:21)
[2023-12-03] MEDS ORDERED: LIDOCAINE 2% 2 ML VIAL/AMP(20MG/ML) INFIL ONE (08:21)
[2023-12-03] MEDS ORDERED: PHENYLEPHRINE HCL 10 MG/ML VIAL ONE (08:22)
== END 2023-11-29 18:09 | disposition home or self-care (01) | DRG 291 ==
LOC: ED 14:36 → 4W 17:04 → SUATTDRO 17:04 → 4W 18:50

== ENCOUNTER 2023-12-01 13:18 | Inpatient (IN) ==
[2023-12-01 14:03] LABS: Basophils # (auto) 0.04 K/uL (0.00-0.20); Basophils % (auto) 0.5 %; Eosinophils # (auto) 0.21 K/uL (0.00-0.50); Eosinophils % (auto) 2.8 %; Hematocrit (blood only) 37.1 % (42.0-52.0); Hemoglobin 12.3 g/dl (14.0-18.0); Immature Granulocytes # (auto) 0.02 K/uL (0.01-0.20); Immature Granulocytes % (auto) 0.3 %; Lymphocytes # (auto) 1.88 K/uL (1.20-3.40); Lymphocytes % (auto) 24.8 %; Mean Corpuscular Hemoglobin 30.5 pg (25.0-34.0); Mean Corpuscular Hgb Conc 33.2 g/dL (32.0-36.0); Mean Corpuscular Volume 92.1 fL (80.0-100.0); Mean Platelet Volume 11.4 fL (9.4-12.4); Monocytes # (auto) 0.82 K/uL (0.11-0.59); Monocytes % (auto) 10.8 %; Neutrophils % (auto) 60.8 %; Platelet Count 231 K/uL (130-400); RDW Coefficient of Variation 14.6 % (11.5-14.5); RDW Standard Deviation 49.4 fL (36.4-46.3); Red Blood Count 4.03 M/uL (4.70-6.10); White Blood Count 7.57 K/ul (4.8-10.8)
[2023-12-01 14:06] LABS: Albumin Globulin Ratio 1.7 (0.9-2); Albumin Level 4.3 gm/dl (3.4-5.0); BUN Creatinine Ratio 21.2 (10-20); Bilirubin,Total 0.4 mg/dl (0.2-1.0); Calcium 9.1 mg/dl (8.6-10.3); Creatinine Clr Calc Pharmacy 45.1 ml/min; Est GFR (African American) 43.2 ml/min; Est GFR (Non-African American) 37.3 ml/min; Globulin 2.6 gm/dl (2.5-4.0); Potassium 4.3 mmol/L (3.5-5.1); Total Protein 6.9 gm/dl (6.0-8.3)
[2023-12-01 14:12] LABS: Troponin I High Sensitivity 10.6 pg/ml (0-20)
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
[2023-12-01 14:28] LABS: INR 1.5 (0.9-1.1); Partial Thromboplastin Ratio 1.1; Partial Thromboplastin Time 29 Seconds (21-31); Prothrombin Time 15.6 Seconds (9.0-12.0)
[2023-12-01] MEDS: PERCOCET 5/325MG HOMEPACK PO ONE (14:36)
[2023-12-01] MEDS: oxyCODONE/ACETAMINOPHEN 5mg/325mg TAB PO STA (14:36)
--- NOTE | 2023-12-01 15:22 | XRay Report ---
XR chest 1V portable HISTORY: 73 years-old Male Chest pain, nonspecific COMPARISON: CTA chest 11/27/2023 TECHNIQUE: AP view of the chest FINDINGS: Cardiac silhouette is enlarged. Pulmonary vascular congestion. No pneumothorax or pleural effusion. C ervical spinal fusion hardware. Bones appear grossly intact. IMPRESSION: Cardiomegaly with pulmonary vascular congestion. ACT 112: Negative or not required by law. The above report was generated using voice recognition software. It may contain grammatical, syntax o r spelling errors. Electronically signed by: Brooks Cedillo M.D. 12/01/2023 3:21 PM
[2023-12-01] MEDS: FUROSEMIDE 40 MG/4 ML VIAL IV ONE (15:50)
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
[2023-12-01] MEDS ORDERED: SUCRALFATE 1 GM TAB PO PRN (17:08)
[2023-12-01 18:26] LABS: Appearance Urine Clear (Clear); Bilirubin Urine Negative (Negative); Blood Urine Negative (Negative); Color Urine Yellow; Glucose Urine UA Negative (Negative); Ketones Urine Negative (Negative); Leukocyte Esterase Urine Negative (Negative); Nitrite Urine Negative (Negative); Protein Urine Negative (Negative); Specific Gravity Urine 1.007 (1.000-1.030); Urobilinogen Urine Negative (Negative)
[2023-12-01] MEDS: WARFARIN SOD 5 MG TAB PO SCH (20:08)
[2023-12-01] MEDS: CHOLECALCIFEROL 25 MCG (1000 UNITS) TAB PO SCH (20:09)
[2023-12-01] MEDS: PARoxetine HCL 20 MG TAB PO SCH ×2 (20:09)
[2023-12-01] MEDS: ROSUVASTATIN CALCIUM 20 MG TAB PO SCH (20:09)
[2023-12-01] MEDS: METOPROLOL SUCC 25MG EXT REL TAB PO SCH (20:09)
[2023-12-01] MEDS: MULTIVITAMIN TAB PO SCH (20:09)
[2023-12-01] MEDS: PANTOprazole 40 MG TAB PO SCH (20:09)
[2023-12-01] MEDS: diazePAM 5 MG TABLET PO SCH (20:11)
--- NOTE | 2023-12-01 21:49 | Electrocardiogram Report ---
Test Reason : Blood Pressure : / mmHG Vent. Rate : 112 BPM Atrial Rate : 000 BPM P-R Int : 000 ms QRS Dur : 084 ms QT Int : 322 ms P-R-T Axes : 000 040 040 degrees QTc Int : 439 ms Atrial fibrillation with rapid ventricular response Abnormal ECG When compared with ECG of 28-NOV-2023 03:30, No significant change was found Confirmed by Horace Horton ([id number]) on 12/01/2023 9:48:59 PM Referred By: REFERRED SELF Confirmed By:Horace Horton
[2023-12-01] MEDS: oxyCODONE HCL IR 5 MG TAB (IMMEDIATE RELEASE) PO PRN (22:33)
[2023-12-02 07:58] LABS: Basophils # (auto) 0.04 K/uL (0.00-0.20); Basophils % (auto) 0.6 %; Eosinophils # (auto) 0.26 K/uL (0.00-0.50); Eosinophils % (auto) 4.1 %; Hematocrit (blood only) 38.7 % (42.0-52.0); Hemoglobin 12.6 g/dl (14.0-18.0); Immature Granulocytes # (auto) 0.01 K/uL (0.01-0.20); Immature Granulocytes % (auto) 0.2 %; Lymphocytes # (auto) 1.74 K/uL (1.20-3.40); Lymphocytes % (auto) 27.1 %; Mean Corpuscular Hemoglobin 29.7 pg (25.0-34.0); Mean Corpuscular Hgb Conc 32.6 g/dL (32.0-36.0); Mean Corpuscular Volume 91.3 fL (80.0-100.0); Mean Platelet Volume 10.9 fL (9.4-12.4); Monocytes # (auto) 0.84 K/uL (0.11-0.59); Monocytes % (auto) 13.1 %; Neutrophils # (auto) 3.52 K/uL (1.40-6.50); Neutrophils % (auto) 54.9 %; Platelet Count 223 K/uL (130-400); RDW Coefficient of Variation 14.7 % (11.5-14.5); RDW Standard Deviation 49.1 fL (36.4-46.3); Red Blood Count 4.24 M/uL (4.70-6.10); White Blood Count 6.41 K/ul (4.8-10.8)
[2023-12-02 08:12] LABS: BUN Creatinine Ratio 24.2 (10-20); Calcium 9.2 mg/dl (8.6-10.3); Creatinine Clr Calc Pharmacy 41.8 ml/min; Est GFR (African American) 43.5 ml/min; Est GFR (Non-African American) 37.5 ml/min; Magnesium 1.8 mg/dl (1.7-2.4); Potassium 4.4 mmol/L (3.5-5.1)
[2023-12-02 08:20] LABS: INR 1.7 (0.9-1.1); Prothrombin Time 17.5 Seconds (9.0-12.0)
[2023-12-02] MEDS: FUROSEMIDE INJ 20 MG/2 ML VIAL IV SCH (08:29)
[2023-12-02] MEDS: MAGNESIUM SULFATE / D5W 1 GM/100 ML BAG IV ONE (08:34)
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
[2023-12-02] MEDS: oxyCODONE HCL IR 5 MG TAB (IMMEDIATE RELEASE) PO STA (09:36)
--- NOTE | 2023-12-02 12:58 | Hospitalist Progress Note ---
Date of Service December 02, 2023 Assessment & Plan (1) Atrial fibrillation: (2) Acute heart failure with preserved ejection fraction: Plan A-Fib: - Telemetry reviewed, consistently in A-fib with rates between 100-130 - Continue Metoprolol 25mg BID, hesitant to escalate rate control therapy given soft BP readings - On warfarin anticoagulation, AM INR 1.7 - continue at increased 5mg dose, AM recheck - Cardiology consulted, appreciate recs: - Recommending MICHAEL due to sub-therapeutic INR followed by cardioversion, scheduled for 12/02 - NPO @ midnight - Consider ablation in outpatient setting. Acute HF w/ preserved EF: - Elevated BNP + Hypoxia on admission - Continue Lasix IV 20mg daily, will defer more aggressive diuresis at this time given softer BPs - BP also limiting addition of other goal directed medical therapies - I/Os, daily weights - Fluid restriction, low Na diet VTE Prophylaxis - warfarin Diet - low Na, heart healthy Admission and Anticipated Discharge Date Admission Date: December 01, 2023 Supervising Physician Co-Signing Physician Notes I personally examined the patient and verified all guerrero points of history and exam, discussed case, and agree with decision making with Dr Hernandez still feeling short of breath. Appreciate cardiology plan. Updated patient and answered all questions to the best my ability. Vitals noted, in general he is awake and alert pleasant no distress. The first time I saw him he was sleeping comfortably laying fairly flat. Breathing unlabored no accessory muscle use good effort. acute diastolic CHF in the setting of A-fib with RVRsuspect RVR is driving most of this. His rate control is fairly difficult because he does not reliably stay rate controlled at doses of medications that are compatible with his fairly low baseline blood pressure. Because of this, agree with rhythm control strategy. MICHAEL/cardioversion tomorrow. Otherwise as above. Subjective Patient evaluated at bedside this morning, notes that shortness of breath is ongoing but perhaps slightly improved. Still cannot lay flat but is resting comfortably with head of bed slightly elevated. Notes that sx started developing just one day after being discharged from hospital. States that he has been adherent with medications but does not weigh himself routinely. Denies associated CP, fevers, chills. Pt states that he spoke with cardiology earlier this morning, is amenable to MICHAEL/cardioversion if recommended. Review of Systems Review of Systems: as per HPI Physical Exam Physical Exam: General: Alert and oriented. No acute distress Cardiac: Regular rate and rhythm, no murmurs appreciated Respiratory: Lungs clear to auscultation bilaterally, No increased work of breathing. No crackles appreciated. Psych: mood affect congruence Extremities: No lower extremity edema, calves non-tender bilaterally Results & Data Results & Data Vital Signs (Past 12 Hours) Vital Signs Temp Pulse Resp BP Pulse Ox O2 Del Method 12/02/23 10:58 36.9 C 106 H 18 110/73 91 Room Air 12/02/23 08:00 Room Air 12/02/23 07:57 36.5 C 108 H 18 106/74 95 Room Air 12/02/23 04:31 36.4 C L 102 H 18 107/80 95 Room Air Resident Activity Tracking Resident Involvement: Resident Care Provided Care Provided: Adult Hospital Medicine (1) Atrial fibrillation Atrial fibrillation type: paroxysmal Qualified Code(s): I48.0 - Paroxysmal atrial fibrillation
--- NOTE | 2023-12-02 17:46 | Billing Data ---
Date of Service December 02, 2023 Coding Level of Care Code 18812 SUB INP/OBS CARE MIN
[2023-12-02] MEDS: oxyCODONE HCL IR 5 MG TAB (IMMEDIATE RELEASE) PO PRN (18:31)
--- NOTE | 2023-12-03 07:25 | Hospitalist Progress Note ---
Date of Service December 03, 2023 Assessment & Plan (1) Atrial fibrillation: (2) Acute heart failure with preserved ejection fraction: Plan A-Fib: - S/p MICHAEL, negative for thrombus, and cardioversion, successfully converted to NSR -MICHAEL also shows mild global hypokinesis, EF 35-40% - Continue Metoprolol 25mg BID - Continue Warfarin anticoagulation, AM INR check - Cardiology consulted, appreciate recs: - S/p MICHAEL and cardioversion - Consider ablation in outpatient setting. Acute HF w/ preserved EF: - Elevated BNP + Hypoxia on admission - Continue Lasix IV 20mg daily, hold for softer BPs - BP also limiting addition of other goal directed medical therapies - I/Os, daily weights - Fluid restriction, low Na diet VTE Prophylaxis - warfarin Diet - low Na, heart healthy Admission and Anticipated Discharge Date Admission Date: December 01, 2023 Supervising Physician Co-Signing Physician Notes I personally examined the patient and verified all guerrero points of history and exam, discussed case, and agree with decision making with Dr Hernandez back pain/R sided back and flank pain. Vitals noted, Laying on his left side holding his right lower rib cage and appearing in some degree of discomfort. Breathing unlabored no accessory muscle use. Lungs are clear without rales rhonchi or wheezes good effort. Right-sided lower rib cage musculature high tone, tender, decreased range of motionbalanced ligamentous tension with mild improvement in tissue texture changes no real improvement in pain. Patient tolerated well. acute diastolic CHF in the setting of A-fib with RVRsuspect RVR is driving most of this. Worse cardiomyopathy likely rate related, although with MR being worse it could be valvular related as wellbut really likely all of this relates to uncontrolled tachycardia, and hopefully will improve with time and rate control/rhythm control. Lungs are clear. Appreciate cardiology input. Continue to follow for now. Right-sided flank painappears most consistent with musculoskeletal, as is his norm. Blood pressure too low to utilize narcotics safely (was about 80/60 when I saw him) Voltaren gel, IV Tylenol, gentle OMT. Can utilize narcotics if his pressure allows for it. Mild but persistent hypotensionseems to be asymptomatic from it, but his pressures are relatively lowobviously with caution given CHF, but given that his CHF appears to be more rate related than truly volume overload, to 50 of IV fluids to try to help improve his pressure. Otherwise as above appreciate cardiology input Subjective Patient evaluated at bedside this morning after MICHAEL/cardioversion, notes that SOB has improved. Denies CP, SOB. Notes increased back pain. Review of Systems Review of Systems: as per HPI Physical Exam Physical Exam: General: Alert and oriented. No acute distress Cardiac: Regular rate and rhythm, no murmurs appreciated. No JVD appreciated. Respiratory: Lungs clear to auscultation bilaterally, No increased work of breathing. No crackles appreciated. Psych: mood affect congruence Extremities: No lower extremity edema, calves non-tender bilaterally Results & Data Results & Data Vital Signs (Past 12 Hours) Vital Signs Temp Pulse Resp BP Pulse Ox O2 Del Method 12/03/23 03:03 36.4 C L 91 H 18 112/73 96 Room Air 12/02/23 22:53 37.0 C 58 L 18 92/40 L 95 Room Air 12/02/23 21:44 Room Air 12/02/23 19:47 36.8 C 95 H 18 104/72 95 Room Air Resident Activity Tracking Resident Involvement: Resident Care Provided Care Provided: Adult Hospital Medicine (1) Atrial fibrillation Atrial fibrillation type: paroxysmal Qualified Code(s): I48.0 - Paroxysmal atrial fibrillation
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
[2023-12-03] MEDS: BENZOCAINE/TETRACAIN/BUTAM 50 APPLN/5 GM CAN EXT ONE (07:52)
--- NOTE | 2023-12-03 08:55 | Cardioversion ---
Date of Service December 03, 2023 Electrical Cardioversion Rpt Electrical Cardioversion Report The procedure of biphasic DC cardioversion was discussed with the patient and informed consent was obtained. Conscious sedation was performed by anesthesiology. After MICHAEL was completed and there was no evidence of SADIE thrombus, synchronous biphasic DC cardioversion was performed successfully with 300 Joules x 1. Normal Sinus Rhythm was obtained. Patient remained in NSR at the completion of the procedure. Heart rate post cardioversion 70-75bpm with occasional PACs. The results of the test were discussed with the patients sister Sumi. Impression: Successful DC Cardioversion Achieving NSR.
[2023-12-03] MEDS: LACTATED RINGER'S 250 ML IV ONE (09:30)
[2023-12-03 10:13] LABS: BUN Creatinine Ratio 19.4 (10-20); Calcium 9.7 mg/dl (8.6-10.3); Creatinine Clr Calc Pharmacy 30.7 ml/min; Est GFR (Non-African American) 25.9 ml/min
--- NOTE | 2023-12-03 10:23 | Cardiology Progress Note ---
Date of Service December 03, 2023 Assessment & Plan (1) Paroxysmal atrial fibrillation: (2) Mitral regurgitation: (3) Systolic and diastolic CHF, acute on chronic: Plan His MR is worse than previously noted with severely enlarged LA. The LV function appears affected as well. Would consider changing his RAPHAEL inh over to Entresto as long as he can obtain this med due to the cost. Would maintain HR control with metoprolol for now. Ideally amiodarone would be helpful but with p rior compliance issues with coumadin/protimes/etoh would avoid for now. Will reassess his MR and EF with ECHO as OP hopefully he will maintain in NSR. Will schedule him for follow up next week. Will have him get EVENT monitor at time of DC from our office to follow rhythm. Discussed residential goal with his sister Sumi post procedure-ideally would like to see EP for Afib ablation eval given his CHF with loss of NSR. 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 Will arrange for HOME PT machine to aid in compliance of warfarin. Increase warfarin dose today so hopefully the INR can be Therapeutic until tomorrow. Please monitor AT LEAST 24 hours given periprocedural hypotension. He runs low as baseline but would watch for now. Admission and Anticipated Discharge Date Admission Date: December 01, 2023 Subjective Pt seen with his MICHAEL and cardioversion. Consent obtained. See procedure reports. Further discussion below. Review of Systems Review of Systems: All systems reviewed & are unremarkable except as noted in HPI & below Cardiovascular: + dyspnea at rest, + dyspnea on exertion and + palpitations Physical Exam Physical Exam: General: Alert and oriented. No acute distress Cardiac: Irregular rate and rhythm, systolic murmur at apex radiates to axilla c/w MR Respiratory: Lungs clear to auscultation bilaterally, No increased work of breathing. No crackles appreciated. Psych: mood affect congruence Extremities: No lower extremity edema, calves non-tender bilaterally Results & Data Vital Signs (Past 12 Hours) Vital Signs Temp Pulse Resp BP BP Pulse Ox O2 Del Method 12/03/23 08:47 68 16 74/59 L 94 Room Air 12/03/23 08:32 68 16 73/60 L 94 Room Air 12/03/23 08:17 72 16 86/66 L 96 Room Air 12/03/23 08:10 76 16 93/75 L 97 Oxymask 12/03/23 07:26 92 H 16 106/91 95 Room Air 12/03/23 03:03 36.4 C L 91 H 18 112/73 96 Room Air 12/02/23 22:53 37.0 C 58 L 18 92/40 L 95 Room Air O2 Flow Rate 12/03/23 08:47 12/03/23 08:32 12/03/23 08:17 12/03/23 08:10 10 12/03/23 07:26 12/03/23 03:03 12/02/23 22:53 ECG Additional Comments: post cardioversion MICHAEL showed NSR with PACs (2) Mitral regurgitation Qualified Code(s): I34.0 - Nonrheumatic mitral (valve) insufficiency
[2023-12-03 10:28] LABS: INR 1.7 (0.9-1.1)
[2023-12-03] MEDS: ENOXAPARIN 100 MG/1ML SYR SQ SCH (13:10)
--- NOTE | 2023-12-03 13:13 | Anesthesiology Progress Note ---
Date of Service December 03, 2023 Anesthesia Post Procedure Vital Signs Vital Signs: Temp Pulse Pulse Resp BP BP Pulse Ox 12/03/23 11:38 71 20 80/63 L 94 12/03/23 11:20 12/03/23 10:34 89/67 L 12/03/23 10:18 71 18 92/71 L 98 12/03/23 08:47 68 16 74/59 L 94 12/03/23 08:32 68 16 73/60 L 94 12/03/23 08:17 72 16 86/66 L 96 12/03/23 08:10 76 16 93/75 L 97 12/03/23 07:26 92 H 16 106/91 95 12/03/23 07:00 78 12/03/23 03:03 36.4 C L 91 H 18 112/73 96 12/02/23 22:53 37.0 C 58 L 18 92/40 L 95 12/02/23 21:44 12/02/23 19:47 36.8 C 95 H 18 104/72 95 12/02/23 15:11 36.9 C 84 16 98/67 L 94 O2 Del Method O2 Flow Rate 12/03/23 11:38 Room Air 12/03/23 11:20 Room Air 12/03/23 10:34 12/03/23 10:18 Room Air 12/03/23 08:47 Room Air 12/03/23 08:32 Room Air 12/03/23 08:17 Room Air 12/03/23 08:10 Oxymask 10 12/03/23 07:26 Room Air 12/03/23 07:00 12/03/23 03:03 Room Air 12/02/23 22:53 Room Air 12/02/23 21:44 Room Air 12/02/23 19:47 Room Air 12/02/23 15:11 Room Air Pain Intensity Chest: Pain Intensity: 8 Bilateral Back: Pain Intensity: 8 Transfer of Care Handoff Completed per policy Notes Mental Status: alert / awake / arousable Patient Amnestic to Procedure: Yes Nausea / Vomiting: adequately controlled Pain: adequately controlled Airway Patency, RR, SpO2: stable & adequate BP & HR: stable & adequate Hydration State: stable & adequate Anesthetic Complications: no major complications apparent
[2023-12-03] MEDS: DICYCLOMINE HCL 10 MG CAP PO PRN (13:34)
[2023-12-03] MEDS ORDERED: ACETAMINOPHEN 500 MG TAB PO PRN (13:59)
[2023-12-03] MEDS: SODIUM CHLORIDE 0.9% 250 ML IV ONE (14:57)
[2023-12-03] MEDS: SODIUM CHLORIDE 0.9% 1,000 ML IV SCH (14:57)
[2023-12-03] MEDS: DICLOFENAC SOD 1% GEL 100 GM TUBE EXT SCH (17:41)
--- NOTE | 2023-12-03 19:17 | Billing Data ---
Date of Service December 03, 2023 Coding Level of Care Code 62002 SUB INP/OBS CARE MIN
[2023-12-04 08:21] LABS: Prothrombin Time 20.1 Seconds (9.0-12.0)
[2023-12-04 08:27] LABS: BUN Creatinine Ratio 21.3 (10-20); Creatinine Clr Calc Pharmacy 35.2 ml/min; Est GFR (African American) 35.4 ml/min; Est GFR (Non-African American) 30.6 ml/min; Magnesium 1.9 mg/dl (1.7-2.4); Potassium 4.3 mmol/L (3.5-5.1)
--- NOTE | 2023-12-04 08:38 | Cardiology Progress Note ---
Date of Service December 04, 2023 Assessment & Plan (1) Atrial fibrillation: (2) Acute heart failure with preserved ejection fraction: Plan Plan Impression: 1. Afib 2. Hypertension 3. Dyslipidemia 4. Echocardiogram Bernadine Ortega 09/2023 showing normal LVF, EF 55%, severe left atrial dilatation, moderate mitral valve regurgitation 5. HFpF 6. Chronic kidney disease Mr. Coleman remains in sinus rhythm today. It may be difficult to keep him in sinus rhythm with his severe left atrial dilatation but for now there isn't a great option on arrhythmics for him. He will need to be set up with home INR monitoring. He is therapeutic today and so his Lovenox can be stopped. He will be set up for an event monitor through our office to be placed the day of discharge or the day after depending on timing. He is still orthopneic however he had an JACK on labs yesterday and hypotension following his cardioversion so diuretics have been held for now. Hopefully now that he is in SR he will start to diurese a bit on his own. He does not have the blood pressure room to start Entresto or spironolactone at this time. We may have a difficult time with the cost of Entresto and an SGLT2i for him. In the longer term he may benefit from a Watchman since keeping his INR therapeutic has been very difficult. He would likely also benefit from an A-fib ablation. He is interested in both procedures and we could work on setting this up after discharge in an outpatient setting. His MR looked worse than previous on his MICHAEL and his EF was reduced. We will repeat his echo in the near future after his medications have been optimized. Admission and Anticipated Discharge Date Admission Date: December 01, 2023 Subjective Mr. Coleman remains in sinus rhythm this morning. He is still feeling orthopneic. Review of Systems Review of Systems: All systems reviewed & are unremarkable except as noted in HPI & below Physical Exam Constitutional: WD/WN, vitals as above Respiratory: normal respiratory effort, lungs clear to auscultation Cardiovascular: RRR, no murmur, no edema Skin: no rashes, warm and dry Neurologic: moves all extremities and awake Psychiatric: A+Ox3, euthymic affect Results & Data Vital Signs (Past 12 Hours) Vital Signs Temp Pulse Pulse Resp BP Pulse Ox O2 Del Method 12/04/23 08:01 36.3 C L 71 19 103/73 97 Room Air 12/04/23 07:50 Room Air 12/04/23 03:16 36.7 C 86 18 94/61 L 95 Room Air 12/04/23 00:24 78 12/03/23 22:46 36.4 C L 76 18 86/59 L 92 Room Air 12/03/23 22:21 Room Air (1) Atrial fibrillation Atrial fibrillation type: paroxysmal Qualified Code(s): I48.0 - Paroxysmal atrial fibrillation
[2023-12-04] MEDS ORDERED: LIDOCAINE 1%/EPINEPHRINE 1:100,000 50 ML VIAL ONE (10:08)
[2023-12-04] MEDS ORDERED: LIDOCAINE 1% LOCAL 20 ML VIAL ONE (10:08)
--- NOTE | 2023-12-04 13:03 | Hospitalist Progress Note ---
Date of Service December 04, 2023 Assessment & Plan (1) Atrial fibrillation: (2) Acute heart failure with preserved ejection fraction: Plan A-Fib: - S/p MICHAEL, negative for thrombus, and cardioversion, successfully converted to NSR -MICHAEL also shows mild global hypokinesis, worsening MR, EF 35-40%, a decrease compared to previous echo in September 2023. - Continue Metoprolol 25mg BID - Continue Warfarin anticoagulation, AM INR check - Cardiology consulted, appreciate recs: - S/p MICHAEL and cardioversion - Consider ablation in outpatient setting. - Cardiology recommending home INR monitoring - Will be set up with an event monitor - Repeat echo in outpatient setting given drop in EF and worsening MR - Likely discharge tomorrow morning - will need BMP recheck in the days following discharge Acute HF w/ preserved EF: - Elevated BNP + Hypoxia on admission - Hold Lasix due to soft BP and clinically euvolemic appearance - BP also limiting addition of other goal directed medical therapies - I/Os, daily weights - Fluid restriction, low Na diet VTE Prophylaxis - warfarin Diet - low Na, heart healthy Admission and Anticipated Discharge Date Admission Date: December 01, 2023 Supervising Physician Co-Signing Physician Notes I personally examined the patient and verified all guerrero points of history and exam, discussed case, and agree with decision making with Dr Hernandez Mild degree of orthopnea. Ongoing back and lower rib pain. Feels like he would probably be able to get home tomorrow. Vitals noted, in general he is sitting up in bed appears to be in no distress. HEENT normocephalic atraumatic mucous membranes moist. Breathing unlabored no accessory muscle use good effort. Skin shows no rashes no pallor or icterus. Neuro without focal deficits. acute diastolic CHF in the setting of A-fib with RVRsuspect RVR was driving most of this. Worse cardiomyopathy likely rate related, although with MR being worse it could be valvular related as wellbut really likely all of this relates to uncontrolled tachycardia, and hopefully will improve with time and rate control/rhythm control. With blood pressure and creatinine, doubt further diuresis would be more beneficial than risky, suspect his dyspnea will slowly resolve over time. Hopefully home tomorrow Otherwise as above appreciate cardiology input Subjective Continues to experience some shortness of breath and orthopnea. Denies dyspnea with mild exertion. Consistently in NSR overnight with rates generally in the 60s-70s. No acute overnight events. Review of Systems Review of Systems: as per HPI Physical Exam Physical Exam: General: Alert and oriented. No acute distress Cardiac: Regular rate and rhythm, no murmurs appreciated. No JVD appreciated. Respiratory: Lungs clear to auscultation bilaterally, No increased work of breathing. No crackles appreciated. Psych: mood affect congruence Extremities: No lower extremity edema, calves non-tender bilaterally Results & Data Results & Data Vital Signs (Past 12 Hours) Vital Signs Temp Pulse Pulse Resp BP Pulse Ox O2 Del Method 12/04/23 12:19 73 12/04/23 12:03 36.4 C L 72 20 108/74 98 Room Air 12/04/23 08:01 36.3 C L 71 19 103/73 97 Room Air 12/04/23 07:50 Room Air 12/04/23 03:16 36.7 C 86 18 94/61 L 95 Room Air Resident Activity Tracking Resident Involvement: Resident Care Provided Care Provided: Adult Hospital Medicine (1) Atrial fibrillation Atrial fibrillation type: paroxysmal Qualified Code(s): I48.0 - Paroxysmal atrial fibrillation
--- NOTE | 2023-12-04 16:37 | Billing Data ---
Date of Service December 04, 2023 Coding Level of Care Code 42187 SUB INP/OBS CARE
[2023-12-04 21:49] LABS: Base Excess VBG -2.6 mEq/L; HCO3 VBG 22 mmol/L; Oxygen Saturation VBG 83.7 %; PCO2 VBG 36 mmHg (38-50); PO2 VBG 49 mmHg; pH VBG 7.39 (7.36-7.41)
[2023-12-04 22:14] LABS: Troponin I High Sensitivity 21.3 pg/ml (0-20)
--- NOTE | 2023-12-05 06:16 | Electrocardiogram Report ---
Test Reason : Blood Pressure : / mmHG Vent. Rate : 074 BPM Atrial Rate : 074 BPM P-R Int : 168 ms QRS Dur : 096 ms QT Int : 436 ms P-R-T Axes : 081 060 086 degrees QTc Int : 483 ms Sinus rhythm with Premature atrial complexes Prolonged QT Abnormal ECG When compared with ECG of 01-DEC-2023 13:26, Sinus rhythm has replaced Atrial fibrillation Vent. rate has decreased BY 38 BPM Confirmed by Horace Horton ([id number]) on 12/05/2023 6:16:44 AM Referred By: REFERRED SELF Confirmed By:Hoarce Horton
[2023-12-05 06:36] LABS: Albumin Level 4.1 gm/dl (3.4-5.0); Bilirubin,Total 0.6 mg/dl (0.2-1.0); Calcium 9.1 mg/dl (8.6-10.3); Hematocrit (blood only) 38.8 % (42.0-52.0); Hemoglobin 12.5 g/dl (14.0-18.0); Mean Corpuscular Hgb Conc 32.2 g/dL (32.0-36.0); Mean Platelet Volume 10.7 fL (9.4-12.4); Platelet Count 220 K/uL (130-400); Potassium 4.4 mmol/L (3.5-5.1); RDW Coefficient of Variation 14.7 % (11.5-14.5); RDW Standard Deviation 50.3 fL (36.4-46.3); Red Blood Count 4.17 M/uL (4.70-6.10); White Blood Count 7.12 K/ul (4.8-10.8)
[2023-12-05 06:42] LABS: Albumin Globulin Ratio 1.7 (0.9-2); BUN Creatinine Ratio 20.9 (10-20); Creatinine Clr Calc Pharmacy 37.9 ml/min; Est GFR (African American) 38.7 ml/min; Est GFR (Non-African American) 33.4 ml/min; Globulin 2.4 gm/dl (2.5-4.0); Total Protein 6.5 gm/dl (6.0-8.3)
[2023-12-05 06:51] LABS: INR 2.4 (0.9-1.1); Prothrombin Time 23.8 Seconds (9.0-12.0)
--- NOTE | 2023-12-05 09:56 | Cardiology Progress Note ---
Date of Service December 05, 2023 Assessment & Plan (1) Systolic and diastolic CHF, acute on chronic: (2) Mitral regurgitation: (3) Paroxysmal atrial fibrillation: (4) Chest pain: (5) CKD (chronic kidney disease): Plan He is a somewhat difficult historian because of his ongoing symptoms as well as multiple hospitalizations with congestive heart failure relatively low blood pressure I am going to recommend that he undergo right and left heart catheterization to further define his cardiac diagnosis. The right heart cath will be helpful in helping to assess pulmonary hypertension versus left-sided heart failure as a cause of his ongoing shortness of breath regarding the mitral regurgitation. We will have to wait several days to see if his renal function improves. At this point we have not given him IV fluids but are just holding his diuretics. Ideally had like to see him on Entresto however with the renal issues at this point that is not possible. The procedure of cardiac catheterization was discussed with the patient and he is in agreement. Will anticipate doing the cath early next week pending his renal function. Syd His case was extensively discussed with Dr. Blanco right now or will follow his renal function over the weekend and if remains stable we will proceed with catheterization next week. I will also discuss his case with Dr. Dooley who I am anticipating will be doing his procedure next week. Admission and Anticipated Discharge Date Admission Date: December 01, 2023 Subjective Continues to experience some shortness of breath and orthopnea. Denies dyspnea with mild exertion. Consistently in NSR overnight with rates generally in the 60s-70s. No acute overnight events.He reports not feeling any better since he is been maintained in normal sinus rhythm for approximately 48 hours. He continues to complain of chest discomfort which radiates from his ribs through to the front as well as into his back. We had a long discussion regarding his future cardiac evaluation. Because with the MICHAEL his LV function looked compromised as well as more significant mitral regurgitation and previously noted I am going to recommend that he undergo both a right and left heart catheterization to further define his coronary and cardiac pathology. He is in agreement and is willing to proceed with the test. I explained to him however that his recent renal insufficiency decompensation would require that we have to wait several days until the catheterization could be performed. I would anticipate that hopefully by Saturday or Saturday he would be able to proceed with the catheterization pending his renal function. He is agreeable. including benefits were discussed with the patient and he is in agreement. Review of Systems Cardiovascular: + dyspnea at rest, + dyspnea on exertion and + palpitations Physical Exam Physical Exam: General: Alert and oriented. No acute distress Cardiac: Irregular rate and rhythm, systolic murmur at apex radiates to axilla c/w MR Respiratory: Lungs clear to auscultation bilaterally, No increased work of breathing. No crackles appreciated. Psych: mood affect congruence Extremities: No lower extremity edema, calves non-tender bilaterally Constitutional: WD/WN, vitals as above Cardiovascular: RRR, no murmur, no edema Rate/Rhythm: + abnormal rate and + abnormal rhythm Extremities: no edema Skin: no rashes, warm and dry Neurologic: moves all extremities and awake Psychiatric: A+Ox3, euthymic affect Orientation: alert and oriented x 3 Results & Data Vital Signs (Past 12 Hours) Vital Signs Temp Pulse Pulse Resp BP Pulse Ox O2 Del Method 12/05/23 07:46 36.5 C 109 H 21 95/63 L 96 Room Air 12/05/23 02:25 36.5 C 73 18 113/87 95 Room Air 12/05/23 00:34 Room Air 12/04/23 23:13 36.5 C 73 18 111/73 92 Room Air 12/04/23 22:05 70 (2) Mitral regurgitation Qualified Code(s): I34.0 - Nonrheumatic mitral (valve) insufficiency (4) Chest pain Chest pain type: unspecified Qualified Code(s): R07.9 - Chest pain, unspecified (5) CKD (chronic kidney disease) Chronic kidney disease stage: stage 3 (moderate) Qualified Code(s): N18.3 - Chronic kidney disease, stage 3 (moderate)
--- NOTE | 2023-12-05 12:05 | Hospitalist Progress Note ---
Date of Service December 05, 2023 Assessment & Plan (1) Atrial fibrillation: (2) Acute heart failure with preserved ejection fraction: Plan A-Fib: - S/p MICHAEL 12/02, negative for thrombus, and cardioversion, successfully converted to NSR - Continue Metoprolol 25mg BID - Continue Warfarin anticoagulation, AM INR check - Cardiology consulted, appreciate recs: - S/p MICHAEL and cardioversion 12/02 - Consider ablation in outpatient setting. - Cardiology recommending home INR monitoring - Will be set up with an event monitor in close proximity to discharge JACK on CKD: - Cr 2.42 on admission (baseline 1.4 - 1.8) - AM Cr 1.96 - Continue to hold Lasix, monitor kidney function. If improvement stagnates, consider small amount of IV fluids ie. 500ml over the course of the day. Acute HF w/ preserved EF: - Elevated BNP + Hypoxia on admission - Continue to hold Lasix due to soft BP, pt clinically euvolemic - BP also limiting addition of other goal directed medical therapies - I/Os, daily weights - Fluid restriction, low Na diet -MICHAEL 12/02 also showed mild global hypokinesis, worsening MR, EF 35-40%, a decrease compared to previous echo in September 2023. - Cardiology consulted, recommend right and left heart cath, scheduled for 12/08 VTE Prophylaxis - warfarin Diet - low Na, heart healthy Admission and Anticipated Discharge Date Admission Date: December 01, 2023 Supervising Physician Co-Signing Physician Notes I personally examined the patient and verified all guerrero points of history and exam, discussed case, and agree with decision making with Dr Hernandez Back pain persists. Extensive discussion with cardiology (input greatly appreciated) and they feel with his worsening EF on ischemic workup is warranted; given his CKD and the complexity, as well as his worsened EF and worsened mitral regurg, they felt it most appropriate to keep him inpatient, improve renal function to where right and left heart cath are able to be proceeded with, and do this while he is still in the hospital. Patient agrees with this as well.. Vitals noted, in general he is sitting up in bed appears to be in no distress. HEENT normocephalic atraumatic mucous membranes moist. Breathing unlabored no accessory muscle use good effort. Skin shows no rashes no pallor or icterus. Neuro without focal deficits. acute diastolic CHF in the setting of A-fib with RVRsuspect RVR was driving most of this. Worse cardiomyopathy likely rate related, although with MR being worse it could be valvular related as wellbut really likely all of this relates to uncontrolled tachycardia, and hopefully will improve with time and rate control/rhythm control. At the same time, ischemic workup and right/left heart cath are warranted, and given his complexity, quite reasonable to follow through with this while he is still in the hospital. - Currently therapeutic on anticoagulation, but with cath planned on Saturday, will hold warfarin. Can utilize Lovenox for anticoagulation should his numbers become subtherapeutic. Follow daily INR. CKDruns a baseline elevated creatinineat the same time has been higher than his baseline. Improving each day. Given the goal of keeping him for a right and left heart cath, if his creatinine improvement stalls out, consider very sm all amounts of IV fluids to augment improvement based on his numbers, symptoms, blood pressure, and day-to-day follow-up. Chronic back painpatient complaining that his back pain is far worse than normal because of being in the hospital. Agreed to temporarily augment pain control with IV narcotics as neededcautioned him to try to utilize p.o. narcotics first and use IV only for severe or breakthrough pain. At the same time also was very plainly blunt with patient that I am not at all surprised that his back pain is worse while he is in the hospital, given that it has been quite severe for quite some time, and he has absolutely followed through with the 0 of the steps I outlined in a quite lengthy and deep comprehensive plan that I myself have utilized with patients in the past with a good deal of successand given that he has not taken any steps to improve his situation, I am not remotely surprised that his situation has not improved. With this, encouraged him to actually follow through with steps to improve his situation this time given that, while it will take quite a while, and of course no success is promised, my experience would suggest he has a high probability of improved pain control and improved quality of life with the plan I have outlined for him on multiple occasions. Otherwise as above appreciate cardiology input Subjective Patient states that he is overall feeling rundown and short of breath, essentially unchanged from pre-cardioversion. Per patient, cardiology was in to see him earlier, planning for cardiac cath once kidney function improves. Denies chest pain, fever/chills. Review of Systems Review of Systems: as per HPI Physical Exam Physical Exam: General: Alert and oriented. No acute distress Cardiac: Regular rate and rhythm, no murmurs appreciated. No JVD appreciated. Respiratory: Lungs clear to auscultation bilaterally, No increased work of breathing. No crackles appreciated. Psych: mood affect congruence Extremities: No lower extremity edema, calves non-tender bilaterally Results & Data Results & Data Vital Signs (Past 12 Hours) Vital Signs Temp Pulse Resp BP BP Pulse Ox O2 Del Method 12/05/23 11:33 36.8 C 67 19 98/77 L 92 Room Air 12/05/23 07:46 36.5 C 109 H 21 95/63 L 96 Room Air 12/05/23 02:25 36.5 C 73 18 113/87 95 Room Air 12/05/23 00:34 Room Air Resident Activity Tracking Resident Involvement: Resident Care Provided Care Provided: Adult Hospital Medicine (1) Atrial fibrillation Atrial fibrillation type: paroxysmal Qualified Code(s): I48.0 - Paroxysmal atrial fibrillation
--- NOTE | 2023-12-05 12:57 | Billing Data ---
Date of Service December 05, 2023 Coding Level of Care Code 30385 SUB INP/OBS CARE MIN
[2023-12-05] MEDS: HYDROmorphone INJ 1 MG/ML SYRINGE IV PRN (13:30)
--- NOTE | 2023-12-06 06:54 | Hospitalist Progress Note ---
Date of Service December 06, 2023 Assessment & Plan (1) Atrial fibrillation: (2) Acute heart failure with preserved ejection fraction: Plan A-Fib: - S/p MICHAEL 12/02, negative for thrombus, and cardioversion, successfully converted to NSR - Continue Metoprolol 25mg BID - Continue to hold Warfarin given upcoming heart cath, AM INR check - Cardiology consulted, appreciate recs: - S/p MICHAEL and cardioversion 12/02 - Consider ablation in outpatient setting. - Cardiology recommending home INR monitoring - Will be set up with an event monitor in close proximity to discharge JACK on CKD: - Cr 2.42 on admission (baseline 1.4 - 1.8) - AM Cr 2.11 - Continue to hold Lasix, monitor kidney function. Will trial gentle maintenance fluids. Recheck AM labs. Acute HF w/ preserved EF: - Elevated BNP + Hypoxia on admission - Continue to hold Lasix due to soft BP, pt clinically euvolemic - BP also limiting addition of other goal directed medical therapies - I/Os, daily weights - Fluid restriction, low Na diet -MICHAEL 12/02 also showed mild global hypokinesis, worsening MR, EF 35-40%, a decrease compared to previous echo in September 2023. - Cardiology consulted, recommend right and left heart cath, scheduled for 12/08 VTE Prophylaxis - Warfarin held given upcoming heart cath Diet - low Na, heart healthy Admission and Anticipated Discharge Date Admission Date: December 01, 2023 Supervising Physician Co-Signing Physician Notes Patient seen and examined, chart reviewed, case discussed with Dr. Hernandez and I agree with the assessment and plan as above except as otherwise noted Labs and images reviewed Patient seen at the bedside, feels "okay". Predominant concern is back pain which is improved and tolerable with his current medications. He feels the shortness of breath is not any better or worse than it has been in the previous few days. Denies chest pain, chest pressure, lightheadedness, dizziness. No acute distress in bed at time of visit. Lung sounds are diminished but without rales. Acute diastolic CHF with A-fib RVR s/p cardioversion High risk of return to atrial arrhythmia. Optimize magnesium to goal 2.0. May have rate related cardiomyopathy however given worsening EF ischemic workup is warranted. Patient is pending right and left heart cath on Saturday. Continue to follow renal function, BP over the weekend. He has been in sinus rhythm, INR has drifted below 2.0 this morning patient is subsequently started on heparin gtt. for prophylaxis. Agree with above. Subjective No acute overnight events. Patient has remained in NSR with rates generally in the 60s-70s. Denies chest pain, fever/chills. Overall, feeling a bit better this morning, less short of breath. Currently on supplemental O2, which he states makes him more comfortable. Denies CP, SOB, fever/chills. Review of Systems Review of Systems: as per HPI Physical Exam 2 Physical Exam: General: Alert and oriented. No acute distress Cardiac: Regular rate and rhythm, no murmurs appreciated. No JVD appreciated. Respiratory: Lungs clear to auscultation bilaterally, No increased work of breathing. No crackles appreciated. Psych: mood affect congruence Extremities: No lower extremity edema, calves non-tender bilaterally Results & Data Results & Data Vital Signs (Past 12 Hours) Vital Signs Temp Pulse Pulse Resp BP Pulse Ox O2 Del Method 12/06/23 03:23 36.5 C 67 18 99/64 L 94 Nasal Cannula 12/05/23 23:08 36.3 C L 69 16 110/76 92 Nasal Cannula 12/05/23 22:02 69 12/05/23 19:51 36.3 C L 66 16 103/70 95 Room Air O2 Flow Rate 12/06/23 03:23 2.0 12/05/23 23:08 2.0 12/05/23 22:02 12/05/23 19:51 Resident Activity Tracking Resident Involvement: Resident Care Provided Care Provided: Adult Hospital Medicine (1) Atrial fibrillation Atrial fibrillation type: paroxysmal Qualified Code(s): I48.0 - Paroxysmal atrial fibrillation
[2023-12-06 07:08] LABS: BUN Creatinine Ratio 19.9 (10-20); Calcium 9.2 mg/dl (8.6-10.3); Creatinine Clr Calc Pharmacy 35.2 ml/min; Est GFR (African American) 35.4 ml/min; Est GFR (Non-African American) 30.6 ml/min; Potassium 4.5 mmol/L (3.5-5.1)
[2023-12-06 07:15] LABS: INR 2.4 (0.9-1.1)
[2023-12-06] MEDS: LACTATED RINGER'S 500 ML IV SCH (11:45)
--- NOTE | 2023-12-06 18:41 | Electrocardiogram Report ---
Test Reason : Blood Pressure : / mmHG Vent. Rate : 071 BPM Atrial Rate : 071 BPM P-R Int : 170 ms QRS Dur : 088 ms QT Int : 450 ms P-R-T Axes : 085 059 085 degrees QTc Int : 489 ms Normal sinus rhythm Prolonged QT Abnormal ECG When compared with ECG of 03-DEC-2023 08:20, Premature atrial complexes are no longer Present Confirmed by Horace Horton ([id number]) on 12/06/2023 6:41:17 PM Referred By: REFERRED SELF Confirmed By:Horace Horton
--- NOTE | 2023-12-07 06:47 | Discharge Summary ---
Date of Service December 07, 2023 Admission HPI Per Admitting Provider Sawyer Hoff is a 73 year old male who presents to the ER with shortness of breath. He was recently admitted with acute heart failure with preserved ejection fraction in atrial fibrillation with rapid ventricular rate. He was started on Lasix and switched from diltiazem to metoprolol XL. He reports feeling better at time of discharge but as soon as he returned home he started becoming more short of breath. Associated orthopnea and paroxysmal nocturnal dyspnea. He reports taking all medications as prescribed and did not having any significant salt intake. No known weight increase, leg swelling, presyncope or s yncope. No fever, chills, cough, nasal congestion, sinus pain. Discharge Data Allergies Allergy/AdvReac Type Severity Reaction Status Date / Time house dust Allergy Severe congestion,difficulty Verified 11/27/23 16:12 breathing- receives allergy shots mold Allergy Severe nasal Verified 11/27/23 16:12 congestion, difficulty breathing Penicillins Allergy Intermediate rash, hives Verified 11/27/23 16:12 Consultations 12/01/23 15:41 ED Decision to Admit Stat 12/01/23 22:03 Consult Cardiology Routine 12/02/23 08:55 Consult Anesthesiology Routine Procedures Performed Operation Date: 12/09/23 09:00 <No data on this case meets the specified criteria> Hospital Course (1) Atrial fibrillation: (2) Acute heart failure with preserved ejection fraction: Plan A-Fib: - S/p MICHAEL 12/02, negative for thrombus, and cardioversion, successfully converted to NSR - Continue Metoprolol 25mg BID - Continue to hold Warfarin given upcoming heart cath, AM INR check - Cardiology consulted, appreciate recs: - S/p MICHAEL and cardioversion 12/02 - Consider ablation in outpatient setting. - Cardiology recommending home INR monitoring - Will be set up with an event monitor in close proximity to discharge JACK on CKD: - Cr 2.42 on admission (baseline 1.4 - 1.8) - AM Cr 2.11 - Continue to hold Lasix, monitor kidney function. Will trial gentle maintenance fluids. Recheck AM labs. Acute HF w/ preserved EF: - Elevated BNP + Hypoxia on admission - Continue to hold Lasix due to soft BP, pt clinically euvolemic - BP also limiting addition of other goal directed medical therapies - I/Os, daily weights - Fluid restriction, low Na diet -MICHAEL 12/02 also showed mild global hypokinesis, worsening MR, EF 35-40%, a decrease compared to previous echo in September 2023. 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 You were cardioverted to bring your heart back into a normal rhythm; it is difficult to determine how long this may last. As such, cardiology will set you up with an event monitor to monitor your heart rate in the outpatient setting. Cardiology will also help determine if/when an ablation procedure may be appropriate. As far as medication, no changes were made to your home medications. Pending Studies at Discharge: No Stand-Alone Forms: [facility] [employer], Smoking Cessation Medications and DC Order Prescriptions: Continued multivitamin Tablet 1 tab PO HS paroxetine HCl [Paxil] 40 mg tablet 40 mg PO HS paroxetine HCl 20 mg tablet 20 mg PO HS Rx Instructions: TAKE WITH 40MG = 60MG DAILY rosuvastatin 40 mg tablet 40 mg PO HS diazepam 5 mg tablet 5 mg PO BID cholecalciferol (vitamin D3) [Vitamin D3] 25 mcg (1,000 unit) Tablet 25 mcg PO HS oxycodone 5 mg tablet 5 mg PO TID PRN (Reason: pain) Qty: 9 0RF dicyclomine 10 mg capsule 10 mg PO TID PRN (Reason: abdominal pain) Qty: 30 0RF sucralfate 1 gram tablet 1 g PO QID PRN (Reason: Gi Upset) pantoprazole 40 mg Tablet,Delayed Release (Dr/Ec) 40 mg PO BID Qty: 60 0RF metoprolol succinate 25 mg Tablet Extended Release 24 Hr 25 mg PO BID Qty: 60 0RF Changed warfarin 2.5 mg tablet 5 mg PO DAILY 30 Days Qty: 60 0RF Rx Instructions: PER PT "SKIP YESTERDAY, 11/26/23 AND TODAY, 11/27/23 PER ANTI COAG". take as directed Held furosemide 20 mg Tablet 20 mg PO QAM Qty: 30 0RF Hold Instructions: Resume on 12/11/23. Hold until directed to restart by your outpatient providers. Admission Data Admit Date/Time: 12/01/23 16:06 Attending Provider: Gerry Cordon Admit Provider: Kostas Fofana Primary Care Provider: Nithya Foster Other Providers: Kostas Fofana; Randal Beatty; Danae Clarke; No Link; Kandy Loza; Dolores Valdez; Obinna Graff; Vance Rivera; Papo Christopher; Andres Jones; Paola Jones; Kobi Collado; Kalpana Whyte; Bruce Kasper; Alfa Whitlock; [place]; Bora Lamb; Adelita Madsen; Calixto Sevilla; Ruby Sevilla; Dago Shook; Ct Escamilla; Massimo Ray; Zahraa Barker; Laure Nguyen; Emigdio Matthews; Alee Jerome; Kusum Mcgrath; Naila Henderson; Tenisha Pineda; Yifan Pineda V; Kemal Wilson; No Andre; Kavon Cardoso; Chary Thayer; Yifan Vance; Luis E Madsen; Maico Zuluaga; Adenike Steven; Pia Olsen; Yifan Salinas; Oni Oliver; June Nguyen; Perry Nixon; Reva Edouard; Debbie Zapata; Benito Julian; Zachary Lamb; Radha Woodward; Ovidio Condon; Manolo Brizuela; Kyaw Mooney; Obinna Kauffman Jr; Yun Abbott; Beena Carrillo; Natasha Booker; Emigdio Sung; Andres Jefferson; Amy Foster; Beena Thomas; Randal Munoz; Chuck Howe; Beka Barrett; Kameron Echevarria; Jenifer Santana; Kamar Lara; Jadyn Pierre; Lavonne Barrientos; Corrina Mathis
--- NOTE | 2023-12-07 06:49 | Hospitalist Progress Note ---
Date of Service December 07, 2023 Assessment & Plan (1) Atrial fibrillation: (2) Acute heart failure with preserved ejection fraction: Plan 1) Acute HF w/ preserved EF: - Elevated BNP + Hypoxia on admission - Continue to hold Lasix due to soft BP, pt clinically euvolemic - BP also limiting addition of other goal directed medical therapies - I/Os, daily weights - Fluid restriction, low Na diet -MICHAEL 12/02 also showed mild global hypokinesis, worsening MR, EF 35-40%, a decrease compared to previous echo in September 2023. - Cardiology consulted, recommend right and left heart cath, scheduled for 12/08 2) A-Fib: - S/p MICHAEL 12/02, negative for thrombus, and cardioversion, successfully converted to NSR - Continue Metoprolol 25mg BID - pt started on Heparin drip due to sub-therapeutic INR (more easily reversed in acute setting by using protamine sulfate) - INR, 1.8 <-- 2.4, Continue to hold Warfarin given upcoming heart cath, AM INR check - Cardiology consulted, appreciate recs: - S/p MICHAEL and cardioversion 12/02 - Consider ablation in outpatient setting. - Cardiology recommending home INR monitoring - Will be set up with an event monitor in close proximity to discharge 3) JACK on CKD: - Cr 2.03 <-- 2.11 <-- 1.96 <-- 2.42 on admission (baseline 1.4 - 1.8) - Improving - Continue to hold Lasix, monitor kidney function. Will trial gentle maintenance fluids. Code status: Full code Disposition: PCU VTE Prophylaxis - Warfarin held given upcoming heart cath Diet - low Na, heart healthy Admission and Anticipated Discharge Date Admission Date: December 01, 2023 Supervising Physician Co-Signing Physician Notes Patient seen and examined, chart reviewed, case discussed with Dr. lBanco and I agree with the assessment and plan as above except as otherwise noted Labs and images reviewed Sawyer is seen at the bedside. Had an episode of confusion last night, this is resolved. Continues to have some back pain otherwise feels about the same as yesterday. No chest pain no chest pressure. Denies shortness of breath at rest. Lungs were clear, heart rate is regular at the bedside. Heart failure with preserved EF: No acute decompensation at time of assessment. EF 35-40%, pending ischemic evaluation. Currently stable at the bedside. Creatinine 2.03, downtrending from 2.11 heparin GTT temporarily in place for stroke prophylaxis with history of A-fib/a flutter. Anticipate right/left heart cath 12/08. Subjective No acute overnight events. Patient has remained in NSR with rates generally in the 60s-70s. Patient has some residual chest pain (10/13), but no fever/chills. Overall, feeling a bit better this morning, less short of breath, patient not requiring O2. Patient continues to have back pain (12/13) and is not sleeping well. Review of Systems Constitutional: + body aches and + insomnia (some chroni c insomnia at baseline); no fever and no chills Respiratory: + dyspnea on exertion; no cough and no d yspnea Cardiovascular: + chest pain and + lightheadedness (inte rmittent lightheadedness); no palpitations Gastrointestinal: no abdominal pain, no nausea, no vomiting and no diarrhea/loose stools Genitourinary: no dysuria, no urinary frequency, no urinary incontinence or no flank pain Neurologic: + tingling and + numbness (baseline numb ness/tingling of RLE, toes on LLE) Physical Exam Constitutional: WD/WN, vitals as above Respiratory: normal respiratory effort, lungs clear to auscultation Cardiovascular: Rate/Rhythm: regular rate and regular rhythm Heart Sounds: no gallop and no murmur Extremities: normal capillary refill; no calf tenderness and no pedal edema Gastrointestinal (Abdomen): Inspection/Auscultation: normal bowel sounds Percussion/Palpation: + abdomen tender (left and right upper abdominal tenderness) and + hepatomegaly Psychiatric: A+Ox3, euthymic affect Results & Data Results & Data Vital Signs (Past 12 Hours) Vital Signs Temp Pulse Pulse Resp BP Pulse Ox O2 Del Method 12/06/23 23:57 36.7 C 96 H 18 127/81 98 Room Air 12/06/23 22:01 69 12/06/23 19:11 36.6 C 68 18 99/65 L 98 Room Air (1) Atrial fibrillation Atrial fibrillation type: paroxysmal Qualified Code(s): I48.0 - Paroxysmal atrial fibrillation
[2023-12-07 07:57] LABS: BUN Creatinine Ratio 19.2 (10-20); Calcium 9.5 mg/dl (8.6-10.3); Creatinine Clr Calc Pharmacy 36.6 ml/min; Est GFR (African American) 37.1 ml/min; Potassium 4.8 mmol/L (3.5-5.1)
[2023-12-07 08:00] LABS: INR 1.8 (0.9-1.1)
[2023-12-07] MEDS ORDERED: Heparin IV Adult Wt-Based Low-Dose *NO* INITIAL Bolus Protocol IV SCH (08:21)
--- NOTE | 2023-12-07 08:58 | Billing Data ---
Date of Service December 06, 2023 Coding Level of Care Code 25214 SUB INP/OBS CARE
[2023-12-07] MEDS: HEPARIN SODIUM/DEXTROSE 25,000 UNITS/500 ML BAG IV SCH (10:21)
[2023-12-07 12:10] LABS: Partial Thromboplastin Ratio 1.2; Partial Thromboplastin Time 31 Seconds (21-31)
[2023-12-07 12:14] LABS: Basophils # (auto) 0.04 K/uL (0.00-0.20); Basophils % (auto) 0.6 %; Eosinophils # (auto) 0.23 K/uL (0.00-0.50); Eosinophils % (auto) 3.4 %; Hematocrit (blood only) 39.6 % (42.0-52.0); Hemoglobin 12.4 g/dl (14.0-18.0); Immature Granulocytes # (auto) 0.01 K/uL (0.01-0.20); Immature Granulocytes % (auto) 0.1 %; Lymphocytes # (auto) 1.44 K/uL (1.20-3.40); Lymphocytes % (auto) 21.6 %; Mean Corpuscular Hemoglobin 29.7 pg (25.0-34.0); Mean Corpuscular Hgb Conc 31.3 g/dL (32.0-36.0); Mean Corpuscular Volume 94.7 fL (80.0-100.0); Monocytes # (auto) 0.67 K/uL (0.11-0.59); Neutrophils # (auto) 4.29 K/uL (1.40-6.50); Neutrophils % (auto) 64.3 %; Platelet Count 210 K/uL (130-400); RDW Coefficient of Variation 14.6 % (11.5-14.5); RDW Standard Deviation 50.7 fL (36.4-46.3); Red Blood Count 4.18 M/uL (4.70-6.10); White Blood Count 6.68 K/ul (4.8-10.8)
--- NOTE | 2023-12-07 16:55 | Billing Data ---
Date of Service December 07, 2023 Coding Level of Care Code 82636 SUB INP/OBS CARE
--- NOTE | 2023-12-08 06:51 | Hospitalist Progress Note ---
Date of Service December 08, 2023 Assessment & Plan (1) Atrial fibrillation: (2) Acute heart failure with preserved ejection fraction: Plan 1) Acute HF w/ preserved EF: - Elevated BNP + Hypoxia on admission - Continue to hold Lasix due to soft BP, pt clinically euvolemic - BP also limiting addition of other goal directed medical therapies - I/Os, daily weights - Fluid restriction, low Na diet -MICHAEL 12/02 also showed mild global hypokinesis, worsening MR, EF 35-40%, a decrease compared to previous echo in September 2023. - Cardiology consulted, recommend right and left heart cath, scheduled for 12/08, 9:00 am 2) A-Fib: - S/p MICHAEL 12/02, negative for thrombus, and cardioversion, successfully converted to NSR - in NSR o/n on telemetry - Continue Metoprolol 25mg BID - pt started on Heparin drip due to sub-therapeutic INR (more easily reversed in acute setting by using protamine sulfate) - INR, 1.5 <-- 1.8 <-- 2.4, Continue to hold Warfarin given upcoming heart cath, AM INR check - Cardiology consulted, appreciate recs: - S/p MICHAEL and cardioversion 12/02 - Consider ablation in outpatient setting. - Cardiology recommending home INR monitoring - Will be set up with an event monitor in close proximity to discharge 3) JACK on CKD: #resolved - Cr 1.74 <-- 2.03 <-- 2.42 on admission (baseline 1.4 - 1.8) - Improved, back to baseline - Continue to hold Lasix, monitor kidney function. Will trial gentle maintenance fluids. Code status: Full code Disposition: PCU VTE Prophylaxis - Warfarin held given upcoming heart cath Diet - low Na, heart healthy Admission and Anticipated Discharge Date Admission Date: December 01, 2023 Supervising Physician Co-Signing Physician Notes Patient seen and examined, chart reviewed, case discussed with Dr. Blanco and I agree with the assessment and plan as above except as otherwise noted Labs and images reviewed Sawyer is seen at the bedside. Had an episode where he got dressed and went for a walk, remembers this but does not remember why he went. Feels normal today. Oriented to name place and year.. Continues to have some back pain otherwise feels this is tolerable currently.. No chest pain no chest pressure. Denies shortness of breath at rest. Lungs were clear, heart rate is regular at the bedside. Heart failure with preserved EF: No acute decompensation at time of assessment. EF 35-40%, pending ischemic evaluation. Currently stable at the bedside. Creatinine 1.7, continues to downtrending from 2.11 heparin GTT temporarily in place for stroke prophylaxis with history of A-fib/a flutter. Anticipate right/left heart cath 12/08. No acute changes today Subjective No acute overnight events. Patient has remained in NSR with rates generally in the 60s-70s. Patient has some residual mild chest pain (2/10), but no fever/chills. Overall, feeling a bit better this morning, less short of breath, patient not requiring O2. Patient continues to have back pain (10/13) and slept better last night Review of Systems Review of Systems: as per HPI Constitutional: + body aches and + insomnia (some chroni c insomnia at baseline); no fever and no chills Respiratory: + dyspnea on exertion; no cough and no d yspnea Cardiovascular: + chest pain; no palpitations and no lig htheadedness Gastrointestinal: no abdominal pain, no nausea, no vomiting and no diarrhea/loose stools Genitourinary: no dysuria, no urinary frequency, no urinary incontinence or no flank pain Neurologic: + tingling and + numbness (baseline numb ness/tingling of RLE, toes on LLE) Physical Exam Constitutional: WD/WN, vitals as above Respiratory: normal respiratory effort, lungs clear to auscultation Cardiovascular: Rate/Rhythm: regular rate and regular rhythm Heart Sounds: + murmur (left midclavicular, radiating to l. axilla); no gallop Extremities: normal capillary refill; no calf tenderness and no pedal edema Gastrointestinal (Abdomen): Inspection/Auscultation: normal bowel sounds Percussion/Palpation: + abdomen tender (left and right upper abdominal tender ness) Psychiatric: A+Ox3, euthymic affect Results & Data Results & Data Vital Signs (Past 12 Hours) Vital Signs Temp Pulse Pulse Resp BP Pulse Ox O2 Del Method 12/08/23 03:01 36.4 C L 66 18 99/65 L 93 Room Air 12/07/23 23:33 36.5 C 70 18 131/92 92 Room Air 12/07/23 22:01 68 12/07/23 19:13 36.5 C 68 18 112/76 95 Room Air Resident Activity Tracking Resident Involvement: Resident Care Provided Care Provided: Adult Hospital Medicine (1) Atrial fibrillation Atrial fibrillation type: paroxysmal Qualified Code(s): I48.0 - Paroxysmal atrial fibrillation
[2023-12-08 07:49] LABS: Basophils # (auto) 0.04 K/uL (0.00-0.20); Basophils % (auto) 0.8 %; Eosinophils # (auto) 0.21 K/uL (0.00-0.50); Eosinophils % (auto) 4.2 %; Hematocrit (blood only) 36.3 % (42.0-52.0); Hemoglobin 11.9 g/dl (14.0-18.0); Immature Granulocytes # (auto) 0.01 K/uL (0.01-0.20); Immature Granulocytes % (auto) 0.2 %; Lymphocytes # (auto) 1.47 K/uL (1.20-3.40); Lymphocytes % (auto) 29.3 %; Mean Corpuscular Hemoglobin 29.9 pg (25.0-34.0); Mean Corpuscular Hgb Conc 32.8 g/dL (32.0-36.0); Mean Corpuscular Volume 91.2 fL (80.0-100.0); Mean Platelet Volume 10.5 fL (9.4-12.4); Monocytes # (auto) 0.44 K/uL (0.11-0.59); Monocytes % (auto) 8.8 %; Neutrophils # (auto) 2.84 K/uL (1.40-6.50); Neutrophils % (auto) 56.7 %; Platelet Count 203 K/uL (130-400); RDW Coefficient of Variation 14.5 % (11.5-14.5); RDW Standard Deviation 48.1 fL (36.4-46.3); Red Blood Count 3.98 M/uL (4.70-6.10); White Blood Count 5.01 K/ul (4.8-10.8)
[2023-12-08 08:02] LABS: BUN Creatinine Ratio 21.8 (10-20); Calcium 9.6 mg/dl (8.6-10.3); Creatinine Clr Calc Pharmacy 42.7 ml/min; Est GFR (African American) 44.7 ml/min; Est GFR (Non-African American) 38.6 ml/min; Potassium 4.4 mmol/L (3.5-5.1)
[2023-12-08 08:13] LABS: ANTI-Xa, UFH(UnfractionatedHep 0.43 IU/ml (0.3-0.7); INR 1.5 (0.9-1.1); Prothrombin Time 15.8 Seconds (9.0-12.0)
--- NOTE | 2023-12-08 17:47 | Billing Data ---
Date of Service December 08, 2023 Coding Level of Care Code 43058 SUB INP/OBS CARE
[2023-12-09 08:53] LABS: Basophils # (auto) 0.04 K/uL (0.00-0.20); Basophils % (auto) 0.7 %; Eosinophils # (auto) 0.22 K/uL (0.00-0.50); Eosinophils % (auto) 3.6 %; Hematocrit (blood only) 35.5 % (42.0-52.0); Hemoglobin 11.8 g/dl (14.0-18.0); Immature Granulocytes # (auto) 0.02 K/uL (0.01-0.20); Immature Granulocytes % (auto) 0.3 %; Lymphocytes % (auto) 17.9 %; Mean Corpuscular Hemoglobin 29.9 pg (25.0-34.0); Mean Corpuscular Hgb Conc 33.2 g/dL (32.0-36.0); Mean Corpuscular Volume 90.1 fL (80.0-100.0); Mean Platelet Volume 10.9 fL (9.4-12.4); Monocytes # (auto) 0.57 K/uL (0.11-0.59); Monocytes % (auto) 9.3 %; Neutrophils # (auto) 4.18 K/uL (1.40-6.50); Neutrophils % (auto) 68.2 %; Platelet Count 218 K/uL (130-400); RDW Coefficient of Variation 14.6 % (11.5-14.5); RDW Standard Deviation 48.4 fL (36.4-46.3); Red Blood Count 3.94 M/uL (4.70-6.10); White Blood Count 6.13 K/ul (4.8-10.8)
[2023-12-09 09:01] LABS: INR 1.3 (0.9-1.1)
--- NOTE | 2023-12-09 09:33 | Pre Anesthesia Assessment ---
Date of Service December 09, 2023 Pre Sedation Assessment Vital Signs Temp Pulse Pulse Pulse Resp BP BP 12/09/23 08:49 62 18 127/93 12/09/23 07:59 36.5 C 61 17 124/84 12/09/23 03:36 36.4 C L 60 18 98/57 L 12/08/23 22:40 36.4 C L 87 18 123/83 12/08/23 21:43 65 12/08/23 19:36 36.4 C L 61 18 118/79 12/08/23 15:55 36.2 C L 63 20 112/76 12/08/23 10:43 36.3 C L 62 20 99/65 L Pulse Ox O2 Del Method 12/09/23 08:49 98 Room Air 12/09/23 07:59 93 Room Air 12/09/23 03:36 93 Room Air 12/08/23 22:40 97 Room Air 12/08/23 21:43 12/08/23 19:36 92 Room Air 12/08/23 15:55 93 Room Air 12/08/23 10:43 91 Room Air Cardiovascular RRR, no murmur, no edema Respiratory normal respiratory effort, lungs clear to auscultation Pre-Sedation Airway Assessment Smoking Status: Former smoker Hx Sleep Apnea: No Short, Thick Neck: No Thyromental Distance: > or= 3.5 Finger Breadths Oral Cavity: + WNL Mallampati Class: III ASA: ASA3 NPO Status Date of Last Intake of Fluids: 12/03/23 Time of Last Intake of Fluids: 07:00 Date of Last Intake of Solid Food: 12/02/23 Time of Last Intake of Solid Foods: 21:00 Notes The planned sedation has been discussed with the patient. Informed Consent was obtained. I have identified the patient, determined the appropriateness of sedation and have assessed the patient immediately prior to the procedure. All medicine(s) and interventions are by my order.
[2023-12-09 09:35] LABS: ANTI-Xa, UFH(UnfractionatedHep 0.37 IU/ml (0.3-0.7)
[2023-12-09 09:37] LABS: Calcium 9.6 mg/dl (8.6-10.3); Potassium 4.4 mmol/L (3.5-5.1)
[2023-12-09 09:43] LABS: BUN Creatinine Ratio 19.5 (10-20); Creatinine Clr Calc Pharmacy 37.2 ml/min; Est GFR (African American) 37.8 ml/min; Est GFR (Non-African American) 32.6 ml/min
[2023-12-09] MEDS: fentaNYL citrate PF 100 MCG/2 ML VIAL ONE (10:24)
[2023-12-09] MEDS: HEPARIN (PORCINE) 1000 UNIT/ML 10 ML (CATH LAB USE ONLY) ONE (10:24)
[2023-12-09] MEDS: OPTIRAY 350 ONE (10:25)
[2023-12-09] MEDS: MIDAZOLAM HCL 1 MG/ML 2ML VIAL ONE (10:26)
[2023-12-09] MEDS: NITROGLYCERIN/D5W 100MCG/ML 20ML SYR ONE (10:26)
[2023-12-09] MEDS: niCARdipine HCL INJ 2.5 MG/ML 10 ML AMP ONE (10:26)
--- NOTE | 2023-12-09 10:27 | Post Anesthesia Assessment ---
Date of Service December 09, 2023 Post Sedation Assessment Vital Signs Temp Pulse Pulse Pulse Resp BP BP 12/09/23 08:49 62 18 127/93 12/09/23 07:59 36.5 C 61 17 124/84 12/09/23 03:36 36.4 C L 60 18 98/57 L 12/08/23 22:40 36.4 C L 87 18 123/83 12/08/23 21:43 65 12/08/23 19:36 36.4 C L 61 18 118/79 12/08/23 15:55 36.2 C L 63 20 112/76 12/08/23 10:43 36.3 C L 62 20 99/65 L Pulse Ox O2 Del Method 12/09/23 08:49 98 Room Air 12/09/23 07:59 93 Room Air 12/09/23 03:36 93 Room Air 12/08/23 22:40 97 Room Air 12/08/23 21:43 12/08/23 19:36 92 Room Air 12/08/23 15:55 93 Room Air 12/08/23 10:43 91 Room Air Recovery Score Activity: Moves 4 extremities Respiration: Deep Breath/Cough Circulation: +/-20% PreAnes Value Consciousness: Arouseable (by name) Oxygen Saturation: > 92% On Room Air Post Anesthesia Score: 9 Discharge Sedation Level of Care: Fast Track Phase II Post Sedation Plan On clinical assessment, the patient appears to have tolerated the sedation without complications. Patient is recovering as anticipated. Patient will continue to be monitored by nursing and may be discharged when sedation discharge criteria are met per below protocol. Upon Completions of procedure up to 15 minutes continue every 5 minute vital signs and the P.A.R. score; then discharge to a Phase I or Fast Track to Phase II per the following guidelines: * Discharge Patient to appropriate Phase II area if PAR is 8 or greater or return to pre- procedure baseline. The post - procedure orders will be as directed. * If PAR score is less than 8 or not return to pre-procedure baseline then patient will follow Phase I monitoring till PAR is reached for Phase II. The Phase I may be done in procedure room or may call to secure a Phase I area. * If naloxone or flumazenil are used for reversal, hold in Phase I for continued monitoring from when last reversal dose was given for a minimum of 60 minutes or longer pending the nurse and/or physician discretion of patient condition before discharge to Phase II. Please call the Sedation Physician to re-evaluate and complete post-note for discharge to Phase II area. Do NOT discharge from procedure sedation or Phase 1 until post- sedation evaluation note is complete by procedure /sedation MD Sedation Discharge Instructions to be given to the patient at discharge to home. [facility] Procedure Codes (Charges) Indication for Procedure Indication for procedure: SOB Sedation/Anesthesia Procedure 1: Sedation/Anesthesia: 24134 Mod Sedation by the same physician;Init15 Min Child Age 5 & Up (Initial 15 minutes, start time 0952) Total Sedation Time (minutes): 31 Procedure 2: Sedation/Anesthesia: 68241 Mod Sedation by the same physician; Ea [id number] Minutes (Additional 16 minutes, end time 1023) Total Sedation Time (minutes): 31
[2023-12-09 10:34] LABS: iSTAT Arterial Blood Gas HCO3 21 meg/L (19-24); iSTAT Arterial Blood Gas pCO2 34 mmHg (35-46); iSTAT Arterial Blood Gas pH 7.41 (7.35-7.45); iSTAT Arterial Blood Gas pO2 < 32 mmHg (80-95); iSTAT Carbon Dioxide 22 mmol/L (24-31); iSTAT Hematocrit 33 % (42-52); iSTAT Hemoglobin 11.2 g/dl (14.0-18.0); iSTAT Potassium 4.1 mmol/L (3.3-5.0); iSTAT Sodium 136 mmol/L (135-144)
[2023-12-09 10:34] LABS: iSTAT Arterial Blood Gas HCO3 23 meg/L (19-24); iSTAT Arterial Blood Gas pCO2 30 mmHg (35-46); iSTAT Arterial Blood Gas pH 7.49 (7.35-7.45); iSTAT Arterial Blood Gas pO2 < 32 mmHg (80-95); iSTAT Carbon Dioxide 23 mmol/L (24-31); iSTAT Hematocrit 35 % (42-52); iSTAT Hemoglobin 11.9 g/dl (14.0-18.0); iSTAT Potassium 4.4 mmol/L (3.3-5.0); iSTAT Sodium 140 mmol/L (135-144)
--- NOTE | 2023-12-09 15:02 | Hospitalist Progress Note ---
Date of Service December 09, 2023 Assessment & Plan (1) Atrial fibrillation: (2) Acute heart failure with preserved ejection fraction: Plan 1) Acute HF w/ preserved EF: - Elevated BNP + Hypoxia on admission - Continue to hold Lasix due to soft BP, pt clinically euvolemic - BP also limiting addition of other goal directed medical therapies - I/Os, daily weights - Fluid restriction, low Na diet -MICHAEL 12/02 also showed mild global hypokinesis, worsening MR, EF 35-40%, a decrease compared to previous echo in September 2023. - Heart cath 12/09/23 negative for significant disease. 2) A-Fib: - S/p MICHAEL 12/02, negative for thrombus, and cardioversion, successfully converted to NSR - in NSR o/n on telemetry - Continue Metoprolol 25mg BID - pt started on Heparin drip due to sub-therapeutic INR (more easily reversed in acute setting by using protamine sulfate) - INR, 1.5 <-- 1.8 <-- 2.4, Continue to hold Warfarin given upcoming heart cath, AM INR check - Cardiology consulted, appreciate recs: - S/p MICHAEL and cardioversion 12/02 - Consider ablation in outpatient setting. - Cardiology recommending home INR monitoring - Will be set up with an event monitor in close proximity to discharge 3) JACK on CKD: -Remains elevated at 2.0 today - (baseline 1.4 - 1.8) - Improved, back to baseline - Continue to hold Lasix, monitor kidney function. Code status: Full code Disposition: PCU VTE Prophylaxis - Warfarin held given upcoming heart cath Diet - low Na, heart healthy Admission and Anticipated Discharge Date Admission Date: December 01, 2023 Supervising Physician Co-Signing Physician Notes I personally examined the patient and verified guerrero points of history and exam, discussed case, and agree with decision making and plan documented by Dr. Simpson. Patient evaluated post cath with sister Rosibel at bedside (from CT). Patient denies any chest pain. Patient in bed lying flat, right lungs clear b/l to anterior auscultation, regular rate and rhythm, no acute distress. Discussed reports of lack of significant disease reported on cardiac catheterization. Reviewed MICHAEL results. Will discuss next steps with cardiology. Patient recommended to have event monitor prior to discharge, continued INR monitoring, and follow-up. Discussed with patient's sister importance of connecting with case management for outpatient services that may be available in the community, as well as consideration of visit to [facility]. Subjective Patient seen and evaluated at bedside this morning. No acute events overnight. Negative L/R heart cath today was negative for significant disease. Review of Systems Review of Systems: reviewed, per HPI Physical Exam Physical Exam: Constitutional: chronically ill appearing. NAD. HEENT: NCAT, no conjunctival injection CV: Clinically well perfused, Resp: CTABL, no wheezes/rales/rhonchi appreciated, no increased work of breathing GI: soft, nondistended, nontender, BS normoactive MSK: no gross deformities appreciated Skin: warm, dry, no rash appreciated Neuro: alert, oriented, no focal neurologic deficit appreciated Results & Data Results & Data Vital Signs (Past 12 Hours) Vital Signs Temp Pulse Pulse Pulse Resp BP BP 12/09/23 13:23 36.4 C L 54 L 18 123/81 12/09/23 12:11 36.4 C L 58 L 17 143/99 H 12/09/23 11:44 36.3 C L 59 L 19 136/88 12/09/23 11:06 36.3 C L 58 L 14 130/89 12/09/23 10:44 70 17 131/78 12/09/23 10:30 65 18 131/78 12/09/23 08:49 62 18 12/09/23 07:59 36.5 C 61 17 124/84 12/09/23 03:36 36.4 C L 60 18 98/57 L BP Pulse Ox O2 Del Method 12/09/23 13:23 96 Room Air 12/09/23 12:11 96 Room Air 12/09/23 11:44 95 Room Air 12/09/23 11:06 94 Room Air 12/09/23 10:44 97 Room Air 12/09/23 10:30 99 Room Air 12/09/23 08:49 127/93 98 Room Air 12/09/23 07:59 93 Room Air 12/09/23 03:36 93 Room Air Resident Activity Tracking Resident Involvement: Resident Care Provided Care Provided: Adult Hospital Medicine (1) Atrial fibrillation Atrial fibrillation type: paroxysmal Qualified Code(s): I48.0 - Paroxysmal atrial fibrillation
[2023-12-09 16:39] LABS: iSTAT Arterial Blood Gas HCO3 21 meg/L (19-24); iSTAT Arterial Blood Gas pCO2 28 mmHg (35-46); iSTAT Arterial Blood Gas pH 7.49 (7.35-7.45); iSTAT Arterial Blood Gas pO2 101 mmHg (80-95); iSTAT Carbon Dioxide 22 mmol/L (24-31); iSTAT Hematocrit 35 % (42-52); iSTAT Hemoglobin 11.9 g/dl (14.0-18.0); iSTAT Potassium 4.5 mmol/L (3.3-5.0); iSTAT Sodium 137 mmol/L (135-144)
[2023-12-10] MEDS: WARFARIN SOD 5 MG TAB PO ONE (07:37)
[2023-12-10 08:21] LABS: BUN Creatinine Ratio 17.9 (10-20); Calcium 9.6 mg/dl (8.6-10.3); Est GFR (Non-African American) 38.9 ml/min; Potassium 4.2 mmol/L (3.5-5.1)
[2023-12-10 08:28] LABS: INR 1.2 (0.9-1.1); Prothrombin Time 13.2 Seconds (9.0-12.0)
--- NOTE | 2023-12-10 08:37 | Cardiology Progress Note ---
Date of Service December 10, 2023 Assessment & Plan (1) Systolic and diastolic CHF, acute on chronic: (2) Mitral regurgitation: (3) Paroxysmal atrial fibrillation: (4) Chest pain: (5) CKD (chronic kidney disease): Plan Mr. Coleman is maintaining sinus rhythm. He can continue with metoprolol and warfarin. His last two doses of metoprolol were held due to hypotension so I will decrease the dose down to once daily. We may even have to drop to 12.5 mg. He should be discharged with Lovenox to bridge until his INR is therapeutic given his recent cardioversion. He says that he would be comfortable giving himself shots. He will need Lovenox teaching from nursing. Will need to investigate first if he can afford outpatient Lovenox. Ideally he would be on Entresto and an SGLT2i but these will probably be too expensive for him and he does not have blood pressure room anyhow. His echo should be rechecked in a few months to reassess his EF, pulmonary pressures and mitral valve regurgitation after he has spent some time in SR and hopefully diuresed a bit. His blood pressure also does not leave room for further diuretics His cardiac catheterization did not show significant disease but did show elevated right heart pressures. The cath report is not yet available. He will need to have an event monitor placed at our clinic on the day of discharge or day after and close follow up with Dr. Ross. His kidney function is back to baseline today. Discharge per hospitalists, cardiology will sign off for now. Admission and Anticipated Discharge Date Admission Date: December 01, 2023 Subjective Mr. Coleman appears comfortable this morning. He has chronic musculoskeletal chest pain that is worse with a deep breath. He notes that his breathing is better. Review of Systems Review of Systems: All systems reviewed & are unremarkable except as noted in HPI & below Physical Exam Constitutional: WD/WN, vitals as above Respiratory: normal respiratory effort, lungs clear to auscultation Cardiovascular: RRR, no murmur, no edema Skin: no rashes, warm and dry Neurologic: moves all extremities and awake Psychiatric: A+Ox3, euthymic affect Results & Data Vital Signs (Past 12 Hours) Vital Signs Temp Pulse Pulse Pulse Resp BP Pulse Ox 12/10/23 07:53 36.5 C 57 L 17 96/63 L 92 12/10/23 03:12 36.7 C 71 17 110/72 92 12/09/23 23:14 36.7 C 57 L 16 107/65 91 12/09/23 21:45 62 O2 Del Method 12/10/23 07:53 Room Air 12/10/23 03:12 Room Air 12/09/23 23:14 Room Air 12/09/23 21:45 (2) Mitral regurgitation Qualified Code(s): I34.0 - Nonrheumatic mitral (valve) insufficiency (4) Chest pain Chest pain type: unspecified Qualified Code(s): R07.9 - Chest pain, unspecified (5) CKD (chronic kidney disease) Chronic kidney disease stage: stage 3 (moderate) Qualified Code(s): N18.3 - Chronic kidney disease, stage 3 (moderate)
[2023-12-10] MEDS ORDERED: ENOXAPARIN 1 MG/KG SQ SCH (09:15)
--- NOTE | 2023-12-10 09:59 | Cardiac Catheterization ---
[facility] Data: Activities Officer Cardiac Status Clinical evaluation leading to the procedure CAD Presenation: Unstable angina Anginal Classification: CCS III Heart Failure: NYHA Class: CCS IV Cardiogenic Shock within 24 Hours: No Cardiac Arrest within 24 Hours: No Imaging Studies Past 6 Months: Yes Stress Studies Past 6 Months: No Coronary Anatomy Dominant: Right Left Main (% Stenosis): Normal LAD (% Stenosis): Normal D1 (% Stenosis): Normal D2 (% Stenosis): Normal D3 (% Stenosis): Normal Circumflex (% Stenosis): Proximal (30%) OM1 (% Stenosis): Normal OM2 (% Stenosis): Normal L PL1 (% Stenosis): Normal RCA (% Stenosis): Mid (30 to 40% calcified) R PDA (% Stenosis): Normal R PL1 (% Stenosis): Normal Diagnostic Physicians Name: Benito Dooley MD, PhD Closure Device Percutaneous Entry Location: Radial and IJ Closure Device: Radial Band Recommendations: Medical Therapy and/or Counseling Cardiac Cath Procedure Full Procedure Date December 09, 2023 Pre-Procedure Diagnosis Pre-Procedure Diagnosis: CHF AUC Score AUC Score: 07 Post-Procedure Diagnosis Post-Procedure Diagnosis: Mild CAD and Elevated Intracardiac Pressures Procedure(s) Performed Procedure(s) Performed: Coronary Angiography, Left Heart Cath, Right Heart Cath and Ultrasound Guided Vascular Access Esl Tutor Benito Dooley MD, PhD Estimated Blood Loss Estimated Blood Loss: 5 cc Medication(s) Medication(s): Fentanyl, Heparin, Lidocaine 1%, Nicardipine, Nitroglycerin and Versed Summary of Findings Brief description: Patient was brought to the cardiac catheterization suite where he was shaved and prepped in a sterile fashion. Sedated using IV Versed and fentanyl. Soft tissues of the right wrist were anesthetized using 2 mL of 1% Xylocaine. The right radial artery was accessed with a modified Seldinger technique and a 6 [place] radial artery glide sheath was placed. All catheters were advanced and exchanged over a 0.035 J-tip wire. Patient was provided anticoagulation with IV heparin and antispasmodics including nicardipine and nitroglycerin. Left coronary angiography in orthogonal views with a 5 [place] 4 diagnostic catheter. Right coronary angiography in orthogonal views with a 5 [place] 4 diagnostic catheter. Left heart cath was performed with a 5 [place]orean pigtail catheter We next turned our attention to right heart cath Soft tissues of the right neck were anesthetized using 2 mL of 1% Xylocaine. Using the ultrasound for guidance (image saved), the right internal jugular vein was accessed with a micropuncture kit. The micropuncture sheath was then exchanged over a 0.035 J-tip wire for a 6 [place] venous sheath. 6 [place] Westhoff-Jose catheter was then advanced through the venous sheath and the balloon was inflated. Under fluoroscopic guidance the catheter was advanced through the right ventricle and out to the pulmonary artery where it was advanced to the "wedge position". Pulmonary capillary wedge pressure was then measured. The balloon was deflated and pulmonary arterial pressure and oxygen saturation were sampled. The catheter was pulled back into the right ventricle or right ventricular hemodynamics were measured. Finally, the catheter was pulled back and the right atrium or right atrial pressure and oxygen saturation were measured. Systemic arterial oxygen saturation sample was obtained from the radial artery sheath. The cardiac output and index were determined by the method of Josefina. Westhoff-Jose wire was removed from the patient. Radial artery sheath was removed and hemostasis is obtained using a TR band. The venous sheath was removed and hemostasis was obtained using manual compression. Patient remained hemodynamically stable and asymptomatic. He was returned to the recovery area. This ended the case. Right heart cath findings: PCWP-44 mmHg PAP-56/31 mmHg, mean 43 mmHg RVP-53/15 mmHg, RVEDP 22 mmHg RAP-22 mmHg Ao sat-98% PA sat-64% RA sat-69% CO (Josefina)-5.83 L/min CI (Josefina)-2.73 L/min/m PVR-1.54 Gamino units SVR-9.61 Gamino units PVR-13.38 Gamino units Coronary angiography findings: OBW-pvila-yrrvwhz vessel bifurcating into LAD and circumflex. Mild calcification without disease. LAD-large and transapical. Proximal and mid LAD have mild calcification and mild luminal irregularities. The provide a small caliber branching first diagonal and a small to medium caliber second diagonal. Distal LAD is relative ly small in caliber without significant disease and provides a small caliber third diagonal. LCx-this is large caliber and nondominant. First branch is an atrial branch and at the same level there is a very small OM1. Proximal segment beginning just after the atrial branch has up to 30% stenosis. The circumflex remains large as it travels in AV groove giving a large multi branching OM 2. Distally it is also large providing a large branching posterior lateral and then terminating distally after he gives a small atrial branch. There is no angiographically significant disease in the remainder of the circumflex and its branches. RCA-medium to large caliber and dominant vessel. There is mild calcification in the mid segment with 30 to 40% stenosis. Distally there is luminal irregularities and then the vessel bifurcates into the PDA and branching posterolateral. These vessels have no angiographically significant disease. Summary: 1. Mild nonocclusive coronary disease as described 2. Elevated intracardiac pressures including wedge pressure, PA pressure, RV pressure, and RA pressure. Evidence of persistent volume overload plus or minus moderate pulmonary hypertension. Normal LV filling pressure. 3. Additional recommendations regarding medical management per primary cardiology team. Hemodynamics Rest Ao:: 120/70 mmHg, mean 90 mmHg Final Ao: 115/68 mmHg, mean 78 mmHg LV: 120/8 mmHg, LVEDP 13 mmHg Recommendations Recommendations: Medical Therapy and/or Counseling Radiation Exposure (mGy) 782 mGy, fluoroscopy time 3.0 minutes Contrast (mls) 60 cc Anesthesia 1 mg Versed, 50 mcg fentanyl IV. Start time 951, end time 1023 Procedural Complication(s) None Disposition Activities Officer Holding/Recovery I attest to the content of the Intraoperative Record and any orders documented therein. Any exceptions are noted below. [facility] [place] Codes Cardiac Catheterization Procedure 1: Cardiovascular Cath Procedures: 09392 Coronaries & LHC (+/-LV) & RHC Therapeutic Services & Ancillary Procedure 1: Cardiovascular Tx and Anc Procedures: 63410 Ultrasonic Guidance Vascular Access Moderate Sedation Procedure 1: Sedation/Anesthesia: 75502 Mod Sedation by the same physician;Init15 Min Child Age 5 & Up (Initial 15 min, start 951) Procedure 2: Sedation/Anesthesia: 80939 Mod Sedation by the same physician; Ea [id number] Minutes (Additional 16 minutes, end time 1023) PG Care Time/CCT Total # of Minutes Spent Total Time Spent with Patient: Total time spent is greater than 50% in coordination of care (as documented) at patient's floor/unit and/or counseling patient:
[2023-12-10] MEDS: ENOXAPARIN 100 MG/1ML SYR SQ SCH (10:00)
--- NOTE | 2023-12-10 11:57 | Hospitalist Progress Note ---
Date of Service December 10, 2023 Assessment & Plan (1) Atrial fibrillation: (2) Acute heart failure with preserved ejection fraction: Plan 1) Acute HF w/ preserved EF: - Elevated BNP + Hypoxia on admission - Continue to hold Lasix due to soft BP, pt clinically euvolemic - BP also limiting addition of other goal directed medical therapies - I/Os, daily weights - Fluid restriction, low Na diet -MICHAEL 12/02 also showed mild global hypokinesis, worsening MR, EF 35-40%, a decrease compared to previous echo in September 2023. - Heart cath 12/09/23 negative for significant disease. 2) A-Fib: - Continue Metoprolol 25mg daily - INR 1.2 this am, will bridge with Lovenox until INR returns to therapeutic range. - Cardiology consulted, appreciate recs: - S/p MICHAEL and cardioversion 12/02 - Consider ablation in outpatient setting. - Cardiology recommending home INR monitoring - Will be set up with an event monitor in close proximity to discharge 3) JACK on CKD: - Cr 1.73 today - (baseline 1.4 - 1.8) - Continue to hold Lasix, monitor kidney function. Code status: Full code Disposition: PCU VTE Prophylaxis - Warfarin restarted, Lovenox restarted Diet - low Na, heart healthy Admission and Anticipated Discharge Date Admission Date: December 01, 2023 Supervising Physician Co-Signing Physician Notes I personally examined the patient and verified guerrero points of history and exam, discussed case, and agree with decision making and plan documented by Dr. Simpson. Patient resting comfortably in bed on exam, nonlabored breathing, no acute distress. Discussion with patient's Sister Rosibel and case management about possible options on discharge. Discussed anticipation of discharge tomorrow if anticoagulation bridging can be achieved. Patient recommended to continue Lovenox on discharge until INR in therapeutic range. Unfortunately th is might be expensive for patient. Patient will need to follow-up with cardiology for an event monitor. Subjective Patient seen and evaluated at bedside this morning. No acute events overnight. Patient states overall he is feeling better, continues to have reproducible chest pain and chronic back pain. Has very limited social support at home and will have to discuss with case management and family what dispo plans will be safest for patient. Review of Systems Review of Systems: reviewed, per HPI Physical Exam Physical Exam: Constitutional: chronically ill appearing. NAD. HEENT: NCAT, no conjunctival injection CV: Clinically well perfused, Resp: CTABL, no wheezes/rales/rhonchi appreciated, no increased work of breathing GI: soft, nondistended, nontender, BS normoactive MSK: no gross deformities appreciated Skin: warm, dry, no rash appreciated Neuro: alert, oriented, no focal neurologic deficit appreciated Results & Data Results & Data Vital Signs (Past 12 Hours) Vital Signs Temp Pulse Pulse Resp BP Pulse Ox O2 Del Method 12/10/23 11:29 36.6 C 58 L 18 96/56 L 97 Room Air 12/10/23 07:53 36.5 C 57 L 17 96/63 L 92 Room Air 12/10/23 03:12 36.7 C 71 17 110/72 92 Room Air Resident Activity Tracking Resident Involvement: Resident Care Provided Care Provided: Adult Hospital Medicine (1) Atrial fibrillation Atrial fibrillation type: paroxysmal Qualified Code(s): I48.0 - Paroxysmal a trial fibrillation
[2023-12-10] MEDS: WARFARIN SOD 5 MG TAB PO SCH (15:30)
[2023-12-10] MEDS: METOPROLOL SUCC 25MG EXT REL TAB PO SCH (21:34)
[2023-12-11 10:04] LABS: INR 1.4 (0.9-1.1); Prothrombin Time 15.1 Seconds (9.0-12.0)
--- NOTE | 2023-12-11 15:17 | Hospitalist Progress Note ---
Date of Service December 11, 2023 Assessment & Plan (1) Atrial fibrillation: (2) Acute heart failure with preserved ejection fraction: Plan 1) Acute HF w/ preserved EF: - Elevated BNP + Hypoxia on admission - Continue to hold Lasix due to soft BP, pt clinically euvolemic - BP also limiting addition of other goal directed medical therapies - I/Os, daily weights - Fluid restriction, low Na diet -MICHAEL 12/02 also showed mild global hypokinesis, worsening MR, EF 35-40%, a decrease compared to previous echo in September 2023. - Heart cath 12/09/23 negative for significant disease. 2) A-Fib: - Continue Metoprolol 25mg daily - INR 1.4 this am, will bridge with Lovenox until INR returns to therapeutic range. - Cardiology consulted, appreciate recs: - S/p MICHAEL and cardioversion 12/02 - Consider ablation in outpatient setting. - Cardiology recommending home INR monitoring - Will be set up with an event monitor in close proximity to discharge ([facility]) 3) JACK on CKD: - (baseline 1.4 - 1.8) - Continue to hold Lasix, monitor kidney function. Code status: Full code Disposition: PCU VTE Prophylaxis - Warfarin restarted, Lovenox restarted Diet - low Na, heart healthy Admission and Anticipated Discharge Date Admission Date: December 01, 2023 Supervising Physician Co-Signing Physician Notes I personally examined the patient and verified guerrero points of history and exam, discussed case, and agree with decision making and plan documented by Dr. Simpson. Discussed at length patient's difficulty with chronic daily pain, he expresses that he can only perform limited tasks, has been through surgery/injections/physical therapy. Encouraged patient to continue activities as tolerated. We reviewed the importance of multimodal approach to pain relief. Patient also discusses chronic and active depression, has been on paroxetine 60 mg for years and not finding much benefit, we discussed considering starting duloxetine which does have benefit for not only anxiety and depression but also for pain. Awaiting therapeutic INR. Subjective Patient seen and evaluated at bedside this morning. No acute events overnight. No significant complaints this am. Explained cost of Lovenox to patient and he will elect to stay here until INR reaches therapeutic level. Review of Systems Review of Systems: reviewed, per HPI Physical Exam Physical Exam: Constitutional: chronically ill appearing. NAD. HEENT: NCAT, no conjunctival injection CV: Clinically well perfused, Resp: CTABL, no wheezes/rales/rhonchi appreciated, no increased work of breathing GI: soft, nondistended, nontender, BS normoactive MSK: no gross deformities appreciated Skin: warm, dry, no rash appreciated Neuro: alert, oriented, no focal neurologic deficit appreciated Results & Data Results & Data Vital Signs (Past 12 Hours) Vital Signs Temp Pulse Pulse Pulse Resp BP BP 12/11/23 14:50 12/11/23 12:07 36.6 C 58 L 18 97/59 L 12/11/23 11:22 54 L 12/11/23 07:52 36.4 C L 53 L 18 101/66 Pulse Ox O2 Del Method 12/11/23 14:50 92 12/11/23 12:07 92 Room Air 12/11/23 11:22 12/11/23 07:52 95 Room Air Resident Activity Tracking Resident Involvement: Resident Care Provided Care Provided: Adult Hospital Medicine (1) Atrial fibrillation Atrial fibrillation type: paroxysmal Qualified Code(s): I48.0 - Paroxysmal atrial fibrillation
[2023-12-12 06:59] LABS: Hematocrit (blood only) 37.8 % (42.0-52.0); Hemoglobin 12.5 g/dl (14.0-18.0); Mean Corpuscular Hemoglobin 29.6 pg (25.0-34.0); Mean Corpuscular Hgb Conc 33.1 g/dL (32.0-36.0); Mean Corpuscular Volume 89.6 fL (80.0-100.0); Mean Platelet Volume 10.1 fL (9.4-12.4); Platelet Count 235 K/uL (130-400); RDW Coefficient of Variation 14.3 % (11.5-14.5); RDW Standard Deviation 46.8 fL (36.4-46.3); Red Blood Count 4.22 M/uL (4.70-6.10); White Blood Count 6.04 K/ul (4.8-10.8)
[2023-12-12 07:23] LABS: INR 1.5 (0.9-1.1); Prothrombin Time 16.1 Seconds (9.0-12.0)
[2023-12-12 07:37] LABS: BUN Creatinine Ratio 18.9 (10-20); Calcium 9.7 mg/dl (8.6-10.3); Creatinine Clr Calc Pharmacy 41.3 ml/min; Est GFR (African American) 42.9 ml/min; Potassium 4.2 mmol/L (3.5-5.1)
[2023-12-12] MEDS: WARFARIN SOD 3 MG TAB PO STA (08:51)
--- NOTE | 2023-12-12 09:45 | Hospitalist Progress Note ---
Date of Service December 12, 2023 Assessment & Plan (1) Atrial fibrillation: (2) Acute heart failure with preserved ejection fraction: Plan 1) Acute HF w/ preserved EF: - Elevated BNP + Hypoxia on admission - Continue to hold Lasix due to soft BP, pt clinically euvolemic - BP also limiting addition of other goal directed medical therapies - I/Os, daily weights - Fluid restriction, low Na diet -MICHAEL 12/02 also showed mild global hypokinesis, worsening MR, EF 35-40%, a decrease compared to previous echo in September 2023. - Heart cath 12/09/23 negative for significant disease. 2) A-Fib: - Continue Metoprolol 25mg daily - INR 1.4 this am, will bridge with Lovenox until INR returns to therapeutic range. - Cardiology consulted, appreciate recs: - S/p MICHAEL and cardioversion 12/02 - Consider ablation in outpatient setting. - Cardiology recommending home INR monitoring - Will be set up with an event monitor in close proximity to discharge ([facility]) 3) JACK on CKD: - (baseline 1.4 - 1.8) - Continue to hold Lasix, monitor kidney function. Code status: Full code Disposition: PCU VTE Prophylaxis - Warfarin restarted, Lovenox restarted Diet - low Na, heart healthy Admission and Anticipated Discharge Date Admission Date: December 01, 2023 Supervising Physician Co-Signing Physician Notes I personally examined the patient and verified guerrero points of history and exam, discussed case, and agree with decision making and plan documented by Dr. Simpson. Awaiting therapeutic INR, currently 1.5 today, goal 2-3. Patient denies any cardiac concerns, has been in NSR since successful conversion. Discussed consideration of changing paroxetine to duloxetine, unfortunately paroxetine is a potent enzyme inhibitor for the metabolizer of duloxetine, so it is recommended the patient wean down off paroxetine and then introduce duloxetine o trell a period of time. Patient understanding and will discuss this with his PCP at follow-up. Plan is to return home with home health, patient's sister is an area and assisting, she is connected with case management and is aware of local resources to assist patient to remain independent at home. Subjective Patient seen and evaluated at bedside this morning. No acute events overnight. No current complaints. Unfortunately, INR 1.5 this am remains subtherapeutic. Patient with no other acute complaints Review of Systems Review of Systems: reviewed, per HPI Physical Exam Physical Exam: Constitutional: chronically ill appearing. NAD. HEENT: NCAT, no conjunctival injection CV: Clinically well perfused, Resp: CTABL, no wheezes/rales/rhonchi appreciated, no increased work of breathing GI: soft, nondistended, nontender, BS normoactive MSK: no gross deformities appreciated Skin: warm, dry, no rash appreciated Neuro: alert, oriented, no focal neurologic deficit appreciated Results & Data Results & Data Vital Signs (Past 12 Hours) Vital Signs Temp Pulse Pulse Resp BP BP Pulse Ox 12/12/23 09:27 55 L 12/12/23 07:45 36.7 C 60 18 115/71 118/59 L 96 12/12/23 02:58 36.6 C 57 L 18 103/63 93 12/11/23 23:11 36.6 C 60 16 108/64 94 12/11/23 21:53 58 L O2 Del Method 12/12/23 09:27 12/12/23 07:45 Room Air 12/12/23 02:58 Room Air 12/11/23 23:11 Room Air 12/11/23 21:53 Resident Activity Tracking Resident Involvement: Resident Care Provided Care Provided: Adult Hospital Medicine (1) Atrial fibrillation Atrial fibrillation type: paroxysmal Qualified Code(s): I48.0 - Paroxysmal atrial fibrillation
[2023-12-13 06:37] LABS: INR 1.7 (0.9-1.1)
--- NOTE | 2023-12-13 08:40 | Hospitalist Progress Note ---
Date of Service December 13, 2023 Assessment & Plan (1) Atrial fibrillation: (2) Acute heart failure with preserved ejection fraction: Plan 1) Acute HF w/ preserved EF: - Elevated BNP + Hypoxia on admission - Continue to hold Lasix due to soft BP, pt clinically euvolemic - BP also limiting addition of other goal directed medical therapies - I/Os, daily weights - Fluid restriction, low Na diet -MICHAEL 12/02 showed mild global hypokinesis, worsening MR, EF 35-40%, a decrease compared to September 2023. - Heart cath 12/09/23 negative for significant disease. 2) A-Fib: - Continue Metoprolol 25mg daily - INR 1.7 this am, will bridge with Lovenox until INR returns to therapeutic range. - Cardiology consulted, appreciate recs: - S/p MICHEAL and cardioversion 12/02 - Consider ablation in outpatient setting. - Cardiology recommending home INR monitoring - form completed - [facility] cardiology follow up Saturday12/16/23 with plan for event monitor at that time 3) JACK on CKD: - (baseline 1.4 - 1.8) - Continue to hold Lasix, BMP tomorrow am Code status: Full code Disposition: PCU VTE Prophylaxis - Warfarin restarted, Lovenox restarted Diet - low Na, heart healthy Admission and Anticipated Discharge Date Admission Date: December 01, 2023 Supervising Physician Co-Signing Physician Notes Attending Physician Supervision Note: I independently interviewed and examined the patient and verified the guerrero history and physical, reviewed labs and image studies and agree with findings and care plan noted above. Acute HFrEF - s/p diuresis. lasix now on hold. -C done for concern of unstable angina - noted Mild CAD A fib - s/p MICHAEL and cardioversion 12/02 -continue metoprolol -INR 1.7. Needs bridging until therapeutic d/t recent cardioversion. -To have home INR check machine arranged on discharge. -Event monitor to be placed on saturday. Anticipate d/c home in am. Subjective Patient seen and evaluated at bedside this morning. No acute events overnight. No acute complaints this am. INR 1.7. Was given additional 3mg Warfarin yesterday am. Review of Systems Review of Systems: reviewed, per HPI Physical Exam Physical Exam: Constitutional: chronically ill appearing. NAD. HEENT: NCAT, no conjunctival injection CV: Clinically well perfused, Resp: no increased work of breathing GI: nondistended MSK: no gross deformities appreciated Skin: warm, dry, no rash appreciated Neuro: alert, oriented, no focal neurologic deficit appreciated Results & Data Results & Data Vital Signs (Past 12 Hours) Vital Signs Temp Pulse Pulse Resp BP Pulse Ox O2 Del Method 12/13/23 08:05 36.5 C 56 L 20 94/56 L 93 Room Air 12/13/23 02:41 36.6 C 55 L 14 107/73 93 Room Air 12/12/23 22:59 36.9 C 58 L 14 103/71 95 Room Air 12/12/23 21:57 63 Resident Activity Tracking Resident Involvement: Resident Care Provided Care Provided: Adult Hospital Medicine (1) Atrial fibrillation Atrial fibrillation type: paroxysmal Qualified Code(s): I48.0 - Paroxysmal atrial fibrillation
[2023-12-14 02:53] VITALS: TEMP 97.7
[2023-12-14 06:29] LABS: BUN Creatinine Ratio 20.5 (10-20); Calcium 9.7 mg/dl (8.6-10.3); Creatinine Clr Calc Pharmacy 39.1 ml/min; Est GFR (African American) 40.2 ml/min; Est GFR (Non-African American) 34.7 ml/min; Potassium 4.4 mmol/L (3.5-5.1)
[2023-12-14 07:47] VITALS: RESP 15
--- NOTE | 2023-12-14 10:57 | Discharge Summary ---
Date of Service December 14, 2023 Admission HPI Per Admitting Provider Sawyer Hoff is a 73 year old male with permanent atrial fibrillation who presents to the ER with generalized pain and shortness of breath. He is not clear on his history as reports symptoms for the last 6 months but much worse the last few days. He normally does not have chest pain however and this appears to be new over the last few days. Shortness of breath is associated with chest pain. Both are much worse on lying down. I admitted him in September with similar symptoms with gastritis and a. fib RVR at that time. He was having diarrhea at that time and appeared hypovolemic but trial of rate control with diltiazem led to hypotension and ICU admission for vasopressors the following day despite fluid resuscitation. He returned later in September with a similar presentation again and was diagnosed with Campylobacter. On discharge he was supposed to be taking pantoprazole and famotidine however he reports no longer taking these but does not know why (he thinks the prescription just wasn't renewed). He returns today in a. fib RVR despite having taken his diltiazem this morning. Labs/imaging/history suggest he is more hypervolemic at this time however again attempts at rate control with diltiazem and metoprolol led to hypotension when seen therefore diltiazem was discontinued and he was given 500ml bolus. He does note since his rate is better controlled his shortness of breath and chest pain have improved a little. He was lightheaded while just lying in bed when hypotensive in the ER down to 78/55. Chest pain currently 4/10, radiating to back (although he has chronic back pain), worse on lying flat, associated with shortness of breath. No nausea or diaphoresis. He is also having right sided abdominal pain on palpation which he thinks he had during his prior hospitalizations. He has had diarrhea for the last 2 days with 2 loose BM/day. No fever or chills. No nasal congestion, cough, sinus pain. His warfarin is currently on hold due to supratherapeutic INR. Admission Exam Per Admitting Provider Constitutional: WD/WN, vitals as above ENMT: external ear and nose normal, oropharynx normal Respiratory: + respiratory distress, + labored breath ing and + uses accessory muscles Auscultation: + crackles (bibasal); breath sounds present, no diminished lung sounds, no rales, no rhonchi and no wheezes Cardiovascular: Rate/Rhythm: + tachycardic and + irregularly irregular Heart Sounds: no murmur Extremities: normal capillary refill; no calf tenderness and no pedal edema Gastrointestinal (Abdomen): Inspection/Auscultation: abdomen normal to inspection; abdomen not distended Percussion/Palpation: + abdomen tender (Right sided) and abdomen soft; no guarding and abdomen not rigid Musculoskeletal: no cyanosis or clubbing, extremities motor strength 5/5 Skin: no rashes, warm and dry Neurologic: moves all extremities and awake; not confused Psychiatric: A+Ox3, euthymic affect Genitourinary: no CVA tenderness Principal Diagnosis CHF exacerbation, a fib w/ RVR Discharge Exam Constitutional: chronically ill appearing. NAD. HEENT: NCAT, no conjunctival injection CV: Clinically well perfused, Resp: no increased work of breathing GI: nondistended MSK: no gross deformities appreciated Skin: warm, dry, no rash appreciated Neuro: alert, oriented, no focal neurologic deficit appreciated Discharge Data Allergies Allergy/AdvReac Type Severity Reaction Status Date / Time house dust Allergy Severe congestion,difficulty Verified 11/27/23 16:12 breathing- receives allergy shots mold Allergy Severe nasal Verified 11/27/23 16:12 congestion, difficulty breathing Penicillins Allergy Intermediate rash, hives Verified 11/27/23 16:12 Consultations 12/01/23 15:41 ED Decision to Admit Stat 12/01/23 22:03 Consult Cardiology Routine 12/02/23 08:55 Consult Anesthesiology Routine Procedures Performed Operation Date: 12/09/23 09:00 Actual Procedures s Cineradiography w/Routine Exam - Benito Dooley MD, PhD p Cath, Right and Left Heart - Benito Dooley MD, PhD Ordered Studies 12/09/23 06:59 CL Cath Imgs for PACS use only Routine Hospital Course (1) Atrial fibrillation: (2) Acute heart failure with preserved ejection fraction: Plan 1) Acute HF w/ preserved EF: - Elevated BNP + Hypoxia on admission - Continue to hold Lasix on discharge due to soft BP, pt clinically euvolemic - BP also limitis addition of other goal directed medical therapiess - MICHAEL 12/02 showed mild global hypokinesis, worsening MR, EF 35-40%, a decrease compared to September 2023. - Heart cath 12/09/23 negative for significant disease. 2) A-Fib: - Continue Metoprolol 25mg daily - INR 2.0 at discharge, continue warfarin 5mg daily - Cardiology consulted - S/p MICHAEL and cardioversion 12/02 - Consider ablation in outpatient setting. - Cardiology recommending home INR monitoring - form completed - [facility] follow up Saturday12/16/23 with plan for event monitor at that time 3) JACK on CKD: - Cr 1.9 at discharge - (baseline 1.4 - 1.8) Total Time Total Time Spent Total Time Spent (In Minutes): see attending documentation Discharge Plan Discharge Items Patient Disposition: Home - Self-Care Reason For Visit: ACUTE ON CHRONIC HEART FAILURE WITH PRESERVED EJEC Discharge Diagnosis: Afib RVR, acute on chronic HF Activity: Resume your previous activity Non-emergency contact: Primary Care Provider and Telephone Supervisor Call non-emergency contact if: you have any medication questions and your s ymptoms worsen Follow-up/Referrals: Nithya Foster MD [Primary Care Provider] - Karen Ross DO [Physician] - 12/16/23 11:10 am (Please contact office if unable to keep appointment at [phone]) Diet: Heart Healthy Addtl Attending Provider Instructions: You were admitted to the hospital due to shortness of breath, likely due to a co mbination of heart failure exacerbation and A-fib with increased rate. You were cardioverted to bring your heart back into a normal rhythm; it is difficult to determine how long this may last. As such, cardiology will set you up with an event monitor to monitor your heart rate in the outpatient setting. Cardiology will also help determine if/when an ablation procedure may be appropriate. As far as medication, no changes were made to your home medications. While you were hospitalized forms were filled out for you to obtain an in home INR monitoring machine. [facility] [employer] will reach out to you to set this up. You have a follow up appointment with cardiology on 01/16/24 at 11:10 am at the [facility] office. Pending Studies at Discharge: No Stand-Alone Forms: [employer], Smoking Cessation Medications and DC Order Prescriptions: Continued multivitamin Tablet 1 tab PO HS paroxetine HCl [Paxil] 40 mg tablet 40 mg PO HS paroxetine HCl 20 mg tablet 20 mg PO HS Rx Instructions: TAKE WITH 40MG = 60MG DAILY rosuvastatin 40 mg tablet 40 mg PO HS diazepam 5 mg tablet 5 mg PO BID cholecalciferol (vitamin D3) [Vitamin D3] 25 mcg (1,000 unit) Tablet 25 mcg PO HS oxycodone 5 mg tablet 5 mg PO TID PRN (Reason: pain) Qty: 9 0RF dicyclomine 10 mg capsule 10 mg PO TID PRN (Reason: abdominal pain) Qty: 30 0RF sucralfate 1 gram tablet 1 g PO QID PRN (Reason: Gi Upset) pantoprazole 40 mg Tablet,Delayed Release (Dr/Ec) 40 mg PO BID Qty: 60 0RF metoprolol succinate 25 mg Tablet Extended Release 24 Hr 25 mg PO BID Qty: 60 0RF Changed warfarin 2.5 mg tablet 5 mg PO DAILY 30 Days Qty: 60 0RF Rx Instructions: PER PT "SKIP YESTERDAY, 11/26/23 AND TODAY, 11/27/23 PER ANTI COAG". take as directed Held furosemide 20 mg Tablet 20 mg PO QAM Qty: 30 0RF Hold Instructions: Resume on 12/11/23. Hold until directed to restart by your outpatient providers. Discharge Orders: Discharge Order (Routine); Ordered 12/14/23 Ordered By: Asim Simpson Admission Data Admit Date/Time: 12/01/23 16:06 Attending Provider: Agueda Thayer Admit Provider: Kostas Fofana Primary Care Provider: Nithya Foster Other Providers: Kostas Fofana; Radnal Beatty; Danae Clarke; Marilu Link; Kandy Loza; Dolores Valdez; Obinna Graff; Vance Rivera; Papo Christopher; Andres Jones; Paola Jones; Kobi Collado; Kalpana Whyte; Bruce Kasper; Alfa Whitlock; [place]; Bora Lamb; Adelita Madsen; Calixto Sevilla; Ruby Sevilla; Dago Shook; Ct Escamilla; Massimo Ray; Zahraa Barker; Laure Nguyen; Emigdio Matthews; Alee Jerome; Kusum Mcgrath; Naila Henderson; Tenisha Pineda; Yifan Pineda V; Kemal Wilson; No Newberry; Kavon Cardoso; Chary Thayer; Yifan Vance; Luis E Madsen; Maico Zuluaga; Adenike Steven; Pia Olsen; Yifan Salinas; Oni Oliver; June Nguyen; Perry Nixon; Reva Edouard; Debbie Zapata; Benito Julian; Zachary Lamb; Radha Woodward; Ovidio Condon; Manolo Brizuela; Kyaw Mooney; Obinna Kauffman Jr; Yun Abbott; Beean Carrillo; Natasha Booker; Emigdio Sung; Andres Jefferson; Amy Foster; Beena Thomas; Randal Munoz; Chuck Howe; Beka Barrett; Kameron Echevarria; Jenifer Santana; Kamar Lara; Jadyn Pierre; Lavonne Barrientos; Corrina Mathis; Dilcia Hammond Other Interventions: Discharge Summary Assessment (RN) Last Done: 12/14/23 11:14 Supervising Physician Co-Signing Physician Notes Attending Physician Supervision Note: I independently interviewed and examined the patient and verified the guerrero history and physical, reviewed labs and image studies and agree with findings and care plan noted above. Acute HFrEF - s/p diuresis. Euvolemic on discharge. lasix on hold due to low BP readings. To reassess at hospital f/u appointment. -[facility] done for concern of unstable angina - noted Mild CAD A fib - s/p MICHAEL and cardioversion 12/02 -continue metoprolol -INR - 2 on day of discharge. -To have home INR check machine arranged on discharge. -Event monitor to be arranged as outpatient CKD - stable. Resident Activity Tracking Resident Involvement: Resident Care Provided Care Provided: Adult [facility]
[2023-12-14 11:24] VITALS: BP 111/68; PULSE 57; O2SAT 95
== END 2023-12-14 13:10 | disposition home or self-care (01) | DRG 286 ==
LOC: ED 13:18 → 2S 16:06 → SUATTDRO 16:06 → 2S 16:25

== ENCOUNTER 2024-01-15 11:31 | Inpatient (IN) ==
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
[2024-01-15 12:57] LABS: HCO3 VBG 28 mmol/L; Oxygen Saturation VBG < 60.0 %; PCO2 VBG 65 mmHg (38-50); PO2 VBG 36 mmHg; pH VBG 7.24 (7.36-7.41)
--- NOTE | 2024-01-15 13:06 | XRay Report ---
XR chest 1V portable CLINICAL HISTORY: Dyspnea. COMPARISON STUDY: Chest CT November 27, 2023. Chest radiograph December 01, 2023. FINDINGS: There are postoperative findings within the spine. Low lung volumes are unchanged. There is no pneumothorax or pleural effusion. Cardiomegaly is unchanged. There is pulmonary vascular congesti on, similar to prior exam. No consolidation is identified suggest pneumonia IMPRESSION: Cardiomegaly with pulmonary vascular congestion, similar to prior exam. ACT 112: Negative or not required by law. Electronically signed by: Issac Vu M.D. 01/15/2024 1:05 PM
[2024-01-15 13:09] LABS: Basophils # (auto) 0.02 K/uL (0.00-0.20); Basophils % (auto) 0.2 %; Eosinophils # (auto) 0.15 K/uL (0.00-0.50); Eosinophils % (auto) 1.6 %; Hematocrit (blood only) 39.9 % (42.0-52.0); Hemoglobin 12.8 g/dl (14.0-18.0); Immature Granulocytes # (auto) 0.03 K/uL (0.01-0.20); Immature Granulocytes % (auto) 0.3 %; Lymphocytes # (auto) 1.24 K/uL (1.20-3.40); Lymphocytes % (auto) 12.8 %; Mean Corpuscular Hemoglobin 29.8 pg (25.0-34.0); Mean Corpuscular Hgb Conc 32.1 g/dL (32.0-36.0); Mean Corpuscular Volume 92.8 fL (80.0-100.0); Monocytes % (auto) 13.5 %; Neutrophils # (auto) 6.91 K/uL (1.40-6.50); Neutrophils % (auto) 71.6 %; Platelet Count 169 K/uL (130-400); RDW Coefficient of Variation 14.2 % (11.5-14.5); RDW Standard Deviation 47.9 fL (36.4-46.3); White Blood Count 9.65 K/ul (4.8-10.8)
[2024-01-15 13:25] LABS: Adenovirus PCR Not Detected (NotDetected); Bordetella parapertussis PCR Not Detected (NotDetected); Bordetella pertussis PCR Not Detected (NotDetected); Chlamydia pneumoniae PCR Not Detected (NotDetected); Coronavirus 229E PCR Not Detected (NotDetected); Coronavirus CoV-2 (COVID19)PCR Not Detected (NotDetected); Coronavirus HKU1 PCR Not Detected (NotDetected); Coronavirus NL63 PCR Not Detected (NotDetected); Coronavirus OC43PCR Not Detected (NotDetected); Human Metapneumovirus PCR Not Detected (NotDetected); Influenza A PCR Not Detected (NotDetected); Influenza B PCR Not Detected (NotDetected); Mycoplasma pneumoniae PCR Not Detected (NotDetected); Parainfluenza Virus 1 PCR Not Detected (NotDetected); Parainfluenza Virus 2 PCR Not Detected (NotDetected); Parainfluenza Virus 3 PCR Not Detected (NotDetected); Parainfluenza Virus 4 PCR Not Detected (NotDetected); Respiratory Syncytial VirusPCR Not Detected (NotDetected); Rhinovirus/Enterovirus PCR Not Detected (NotDetected)
[2024-01-15 13:28] LABS: Albumin Globulin Ratio 1.9 (0.9-2); Albumin Level 4.6 gm/dl (3.4-5.0); BUN Creatinine Ratio 20.3 (10-20); Bilirubin,Total 0.7 mg/dl (0.2-1.0); Calcium 9.2 mg/dl (8.6-10.3); Creatinine Clr Calc Pharmacy 40.3 ml/min; Est GFR (African American) 37.3 ml/min; Est GFR (Non-African American) 32.2 ml/min; Globulin 2.4 gm/dl (2.5-4.0); Potassium 5.3 mmol/L (3.5-5.1)
[2024-01-15 13:39] LABS: Partial Thromboplastin Ratio 1.7; Partial Thromboplastin Time 46 Seconds (21-31); Prothrombin Time 57.2 Seconds (9.0-12.0)
--- NOTE | 2024-01-15 13:44 | Electrocardiogram Report ---
Test Reason : Blood Pressure : */* mmHG Vent. Rate : 64 BPM Atrial Rate : 64 BPM P-R Int : 168 ms QRS Dur : 82 ms QT Int : 414 ms P-R-T Axes : * -5 54 degrees QTcB Int : 427 ms Normal sinus rhythm Low voltage QRS Inferior infarct , age undetermined Abnormal ECG When compared with ECG of 04-Dec-2023 20:57, Questionable change in QRS axis Nonspecific T wave abnormality now evident in Inferior leads QT has shortened Confirmed by Ilia Osborne ([id number]) on 01/15/2024 1:44:47 PM Referred By: Confirmed By: Ilia Osborne
[2024-01-15 13:54] LABS: INR 6.2 (0.9-1.1)
--- NOTE | 2024-01-15 13:56 | CT Scan Report ---
HEAD CT NONCONTRAST CT DOSE: 1140.94 mGy.cm HISTORY: lethargy, falling asleep at bedside TECHNIQUE: Multiaxial CT images of the head were performed without the use of intravenous contrast. A utomated exposure control was utilized for this study. A dose lowering technique was utilized adheri ng to the principles of ALARA. Comparison: Head CT 05/15/2018. Findings: The paranasal sinuses and mastoid air cells are clear. The calvarium and skull base are int act. The ventricles and sulci are within normal limits. There is no mass, hematoma, midline shift, or acute infarct. Impression: No acute intracranial abnormality. ACT 112: Negative or not required by law. Electronically signed by: Andres Carty M.D. 01/15/2024 1:55 PM
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
[2024-01-15 15:32] LABS: Base Excess VBG 1.2 mEq/L; HCO3 VBG 28 mmol/L; Oxygen Saturation VBG 72.3 %; PCO2 VBG 50 mmHg (38-50); PO2 VBG 43 mmHg; pH VBG 7.35 (7.36-7.41)
--- NOTE | 2024-01-15 15:50 | XCELERA ---
[id number]
[2024-01-15] MEDS: MoRPHine SULFATE 2 MG/ML CARP IV PRN (16:46)
[2024-01-15] MEDS: ALUMINUM/MAGNESIUM SUSP 30 ML UDC PO STA (16:46)
[2024-01-15] MEDS: ACETAMINOPHEN 500 MG TAB PO PRN (16:46)
[2024-01-15] MEDS: DICLOFENAC SOD 1% GEL 100 GM TUBE EXT SCH (16:47)
[2024-01-15] MEDS: FAMOTIDINE 20MG IV PUSH 20 MG/5 ML SYR IV STA (16:47)
[2024-01-15] MEDS: PANTOprazole 40 MG in SYRINGE 0 ML IV ONE (16:47)
[2024-01-15] MEDS ORDERED: ACETAMINOPHEN 325 MG TAB PO PRN (18:24)
[2024-01-15] MEDS ORDERED: FUROSEMIDE 20 MG TAB PO SCH (18:24)
[2024-01-15] MEDS ORDERED: POLYETHYLENE (MIRALAX) 17 GM PACK PO PRN (18:24)
[2024-01-15 18:32] VITALS: TEMP 97.7
--- OUTSIDE RECORDS SUMMARY | 2024-01-15 19:10 | External Medical Summary | Continuity of Care Document ---
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 Name Role Phone Gavin Foster Primary Care Physician [phone] [id number] Date[facility]s): 12/20/23 - 12/20/[address] [facility] [address] [place] [address] [phone] Encounter Diagnosis Atrial fibrillation(Discharge Diagnosis) - 12/20/23 HFrEF (heart failure with reduced ejection fraction)(Discharge Diagnosis) - 12/20/23 Depression(Discharge Diagnosis) - 12/20/23 Discharge Disposition: Home or Self Care Attending Physician: Sanjuanita Poole DO, Mariana Annette Referring Physician: Sanjuanita Poole DO, Mariana Annette Allergies, Adverse Reactions, Alerts Substance Criticality Severity Reaction Reaction Severity Status azithromycin Active penicillins Active Lyrica Able to recogni se own emotional pain and distress Active Neurontin emotional distress A ctive Dust Nasal itching Active Mold Nasal congestion Act manoj Assessment and Plan Extracted from: Title:Office Visit Note Author:Sanjuanita Poole DO, Mariana Annette Date:12/20/23 1.Atrial fibrillation Pt advised to call cardiology today to schedule an appt for post-hospital f/u, referralmade to help in scheduling process cont metoprolol 25mgdaily per discharge summary 2.HFrEF (heart failure with reduced ejection fraction) as above 3.Depression will reach out to discharge physician to clarify what med was discussed with patient referral to psych for recommendations Immunizations Given and Recorded Vaccine Date Status [...] tetanus/diphtheria/pertuss, acel (Tdap) 05/06/11 R ecorded Medications Carafate 1 g oral tablet Start: 12/16/23 5:16:00 PM EDT, 1 tab, PO, ac and hs, Disp# 120 tab, Refills: 0, [id number] Start Date: 12/16/23 Status: Ordered cholecalciferol 25 mcg (1000 intl units) oral capsule Start: 12/16/23 5:21:00 PM EDT, 1 cap, PO, qhs, Disp# 90 cap, Refills: 3, Pharmacy: [facility] #[id number] Start Date: 12/16/23 Status: Ordered colchicine 0.6 mg oral tablet Start: 12/18/23 5:15:00 PM EDT, 1 tab, PO, Daily, Disp# 30 tab, Refills: 3, Max of 3 tabs (1.8mg) per day, PRN: as needed for gout pain, [id number] Start Date: 12/18/23 Status: Ordered diazePAM 5 mg oral tablet Start: 12/11/23 1:11:00 PM EDT, 1 tab, PO, bid, Disp# 60 tab, Refills: 0, Note to Pharmacy: PDMP verified, Pharmacy: [facility]/pharmacy #[id number] Start Date: 12/11/23 Status: Ordered dicyclomine 10 mg oral capsule Start: 12/20/23 2:33:00 PM EDT, 1 cap, PO, tid Start Date: 12/20/23 Status: Ordered DilTIAZem (Eqv-Cardizem CD) 180 mg/24 hours oral capsule, extended release Start: 11/25/23 12:21:00 PM EDT, 1 cap, PO, Daily, Disp# 30 cap, Refills: 0, Pharmacy: [facility]/pharmacy #[id number] Start Date: 11/25/23 Status: Ordered famotidine 20 mg oral tablet Start: 10/09/23 1:53:00 PM EDT, 1 tab, PO, bid, Disp# 60 tab, Refills: 3, Pharmacy: [facility]/pharmacy #[id number] Start Date: 10/09/23 Status: Ordered furosemide 20 mg oral tablet Start: 12/20/23 2:38:00 PM EDT, 1 tab, PO, Daily Start Date: 12/20/23 Status: Ordered Metoprolol Succinate ER 25 mg oral tablet, extended release Start: 12/20/23 2:37:00 PM EDT, 1 tab, PO, Daily Start Date: 12/20/23 Status: Ordered multivitamin Start: 06/21/15 1:07:00 PM EST, 1 tab, PO, Daily Start Date: 06/21/15 Status: Ordered oxyCODONE 5 mg oral tablet Start: 12/16/23 1:43:00 PM EDT, 5 mg =, PO, tid, Disp# 90 tab, Refills: 0, Note to Pharmacy: PDMP verified, pls revert to 90 tab with next fill, 60 was temporary due to short supply, PRN: as needed for pain, Pharmacy: [facility]/pharmacy #[id number] Start Date: 12/16/23 Stop Date: 01/15/24 Status: Ordered pantoprazole 40 mg oral delayed release tablet Start: 10/11/23 10:34:00 AM EDT, 1 tab, PO, Daily, Disp# 90 tab, Pharmacy: [facility]/pharmacy #[id number] Start Date: 10/11/23 Status: Ordered PARoxetine 20 mg oral tablet Start: 12/16/23 5:16:00 PM EDT, 1 tab, PO, Daily, Disp# 30 tab, Refills: 11, take with the 40mg tablet to equal 60mg total, Pharmacy: [facility]/pharmacy #[id number] Start Date: 12/16/23 Stop Date: 12/10/24 Status: Ordered PARoxetine 40 mg oral tablet Start: 12/16/23 5:16:00 PM EDT, 1 tab, PO, Daily, Disp# 30 tab, Refills: 11, take with the 20mg tablet to equal 60mg total, Pharmacy: [facility]/pharmacy #[id number] Start Date: 12/16/23 Stop Date: 12/10/24 Status: Ordered rosuvastatin 40 mg oral tablet Start: 07/04/23 10:57:00 AM EST, 1 tab, PO, qhs, Disp# 90 tab, Refills: 1, Pharmacy: [id number] Start Date: 07/04/23 Status: Ordered warfarin 2.5 mg oral tablet Start: 10/11/23 3:23:00 PM EDT, See Instructions, Disp# 45 tab, Refills: 2, Take lfh-lkr-x-half tablets daily by mouth as directed by [facility] Note to Pharmacy: ?s: El [phone]., Pharmacy: [facility] #[id number] Start Date: 10/11/23 Status: Ordered warfarin 2.5 mg oral tablet Start: 11/11/23 1:18:00 PM EDT, See Instructions, Disp# 45 tab, Refills: 3, Take gtf-hte-a-half tablets daily by mouth as directed by [facility]., Note to Pharmacy: ?s: El [phone]., [id number] Start Date: 11/11/23 Status: Ordered Mental Status 12/20/23 Barriers to Learning one year None evide nt Mandatory Health Literacy Documentation Yes Health Literacy Communication Barriers N ever Primary Language Guatemalan Problem List Condition Confirmation Course Effective Dates Status Health St atus Informant Abnormal gait Confirmed Active Atrial fibrillation Confirmed Active Chronic anxiety Confirmed Active Chronic back pain Confirmed Active Chronic renal failure, stage 3 (moderate) Confirmed Active Depression Confirmed Active 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 Confirmed Active Opioid contract exists Confirmed Active Headache Confirmed Active Hearing loss Confirmed Active HFrEF (heart failure with reduced ejection fraction) Confirmed Active History of lumbar fusion Confirmed Active History of spinal fusion Confirmed Active Hypertension Confirmed Active Failed back syndrome, lumbar Confirmed Active Prostate cancer Confirmed Active Spinal stenosis in cervical region Confirmed Active Spinal stenosis of lumbar region Confirmed Active Tremor Confirmed Active Diagnosis Diagnosis Type Effective Dates Health Status Clinical Service Informant Atrial fibrillation Discharge Diagnosis 12/20/23 Non-Specified Depression Discharge Diagnosis 12/20/23 Non-Specified HFrEF (heart failure with reduced ejection fraction) Discharge Diagnosis 12/20/23 Non-Specified Procedures Procedure Date Related Diagnosis Body Site [...] prostate sonography 10Biopsy showed 1 core of Chloe 3 + 3 11prostate biopsy 12Repaet in 10 years Negative exam 13Right 145-10 years; normal exam 15x2 Right 16lumbar region 17cheek bone 18Left ulnar Vital Signs Most recent to oldest [Reference Range]: 1 Temperature [36.5-37.9 DegC] 36.9 DegC (8/16/24 2:37 PM) Blood Pressure 102/62mmHg (12/20/23 2:37 PM) Cuff Pulse Pressure 40 mmHg (12/20/23 2:37 PM) Social History Social History Type Response Tobacco Former smoker Smoking Status Former Smoker, quit > 1 yr Sex Male Sex Representation Male (finding) [facility]CM Outpt Note * Sanjuanita Poole DO, Mariana Annette: PERFORM Event Display: [facility]CM Outpt Note Authored Date: [id number] Chief Complaint Hosp f/u [facility] d/c 12/14/23. B/l foot pain. History of Present Illness Patient admitted to [facility] 11/30-12/13 for A-fib w/ RVR, acute heart failure Initially treated with IV lasix for HF but this was eventually held due to hypotension. He underwent cardioversion on 12/02 for Afib and heart cath due to unstable angina. His cath showed mild CAD and elevated right heart pressures. His MICHAEL showed mild global hypokinesis, worsening MR, EF 35-40%, a decrease compared to September 2023. Due to persistent hypotension his diltiazem was stopped and he was started onmetoprolol 25mg daily. Has home nursing that started yesterday. His sister Sumi is here with him and notes he is depressed.WHile int hospital they were told he would be weaned off the paxil andstarted on something different but unsure what the medication was. He has been on a number of medications for anxiety and depression but does not remember the names. Sister states he's had some falls. Not moving a lot, mainly on the couch. He declines home PT/OT. Physical Exam Vitals & Measurements T:36.9C BP:102/62 SpO2:96% PHQ2 Data(Data Documented on:12/20/2023 14:34) Emotional health assessment POSITIVE PHQ-9 Data(Data Documented on:12/20/2023 14:46) PHQ-9 Severity Score:23 Thoughts that you would be better off or of hurting yourself in some way?Not at All Depression Risk:Elevated General Anxiety Disorder Screening: RENAE-7 Score:10 RENAE-7 Problem Severity:Very Difficult General: _Alert and oriented, No acute distress Cardiovascular: _Normal rate, Regular rhythm, No murmur, No gallop. Respiratory: _Lungs are clear to auscultation, Respirations are non-labored, Breath sounds are equal Psych: Mood-affect congruence. Reports no SI/HI. Speech is of normal pace and content Assessment/Plan 1.Atrial fibrillation Pt advised to call cardiology today to schedule an appt for post-hospital f/u, referralmade to help in scheduling process cont metoprolol 25mgdaily per discharge summary 2.HFrEF (heart failure with reduced ejection fraction) as above 3.Depression will reach out to discharge physician to clarify what med was discussed with patient referral to psych for recommendations Attestation Time spent: Pre-visit planning: _15 Pqgu-gm-cabo visit: _30 Post-visit (orders/documentation/coordination of care):5 Total visit time: _50 Problem List/Past Medical History Ongoing Abnormal gait Atrial fibrillation Chronic anxiety Chronic back pain Chronic renal failure, stage 3 (moderate) Depression 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 Failed back syndrome, lumbar Headache Hearing loss HFrEF (heart failure with reduced ejection fraction) High cholesterol History of lumbar fusion History of spinal fusion Hypertension Opioid contract exists Prostate cancer Spinal stenosis in cervical region Spinal stenosis of lumbar region Tremor Resolved Acute left flank pain Acute posthemorrhagic anemia [...] disorder Well adult exam Procedure/Surgical History Chest X-ray| Service Date: 09/25/2019CT of abdomen and pelvis with contrast| Service Date: 09/24/2019Chest X-ray| Service Date: 09/23/2019A scan ultrasound| Service Date: 09/08/2019Plain X-ray of left hand| Service Date: 08/16/2019Lumbar spinal stenosis| Service Date: 03/10/2019History of shoulder surgery| Service Date: 05/2017Robot assisted laparoscopic radical prostatectomy| Service Date: 05/17/2016Mohs surgery| Service Date: 10/05/2015Biopsy| Service Date: 08/08/2015Biopsy| Service Date: 11/2014Balloon sinuplasty| Service Date: 02/2014Colonoscopy| Service Date: 05/16/2004Spinal fusionColonoscopySurgerySurgeryAchilles tendon repairRotator cuff repair Medications cholecalciferol(cholecalciferol 25 mcg (1000 intl units) oral capsule), 25 mcg= 1 cap, PO, qhs, 3 refills colchicine(colchicine 0.6 mg oral tablet), 0.6 mg= 1 tab, PO, Daily, PRN, 3 refills diazePAM(diazePAM 5 mg oral tablet), 5 mg= 1 tab, PO, bid dicyclomine(dicyclomine 10 mg oral capsule), 10 mg= 1 cap, PO, tid dilTIAZem(DilTIAZem (Eqv-Cardizem CD) 180 mg/24 hours oral capsule, extended release), 180 mg= 1 cap, PO, Daily famotidine(famotidine 20 mg oral tablet), 20 mg= 1 tab, PO, bid, 3 refills furosemide(furosemide 20 mg oral tablet), 20 mg= 1 tab, PO, Daily metoprolol(Metoprolol Succinate ER 25 mg oral tablet, extended release), 25 mg= 1 tab, PO, Daily multivitamin, 1 tab, PO, Daily oxyCODONE(oxyCODONE 5 mg oral tablet), 5 mg, PO, tid, PRN pantoprazole(pantoprazole 40 mg oral delayed release tablet), 40 mg= 1 tab, PO, Daily PARoxetine(PARoxetine 40 mg oral tablet), 40 mg= 1 tab, PO, Daily, 11 refills PARoxetine(PARoxetine 20 mg oral tablet), 20 mg= 1 tab, PO, Daily, 11 refills rosuvastatin(rosuvastatin 40 mg oral tablet), 1 tab, PO, qhs sucralfate(Carafate 1 g oral tablet), 1 g= 1 tab, PO, ac and hs warfarin(warfarin 2.5 mg oral tablet), See Instructions, 2 refills warfarin(warfarin 2.5 mg oral tablet), See Instructions, 3 refills Allergies DustNasal itching LyricaAble to recognise own emotional pain and distress MoldNasal congestion Neurontinemotional distress azithromycin penicillins Social History Smoking Status Former Smoker, quit > 1 yr Alcohol - Denies Alcohol Use Tobacco - [...] OverDue Colorectal Cancer Screening due05/14/14and every 10year Diabetes Management A1c due07/01/23and every 366day Adult Influenza Vaccine due11/03/23and every 1year Due Adult COVID-19 Vaccination due12/20/23Unknown Frequency Adult Social Determinants of Health Screening due12/20/23Unknown Frequency Adult Tdap/Td Vaccine due12/20/23Unknown Frequency Diabetic Eye Exam due12/20/23Unknown Frequency Falls Plan of Care due12/20/23Unknown Frequency Hepatitis C Screening due12/20/23One-time only Medicare Annual Wellness Visit due12/20/23and every 1year Pneumococcal Vaccine Older Adults due12/20/23One-time only Shingles Vaccine due12/20/23One-time only Due In Future Body Mass Index not due until11/11/24and every 366day Satisfied(in the past 1 year) Satisfied Adult Influenza Vaccine on02/11/23.Satisfied by PRITI Reyes Gillian Body Mass Index on11/11/23.Satisfied by NATHALY Porter Angela Lipid Screening on02/12/23.Satisfied by Contributor_system, Actions PHQ-9 After Positive PHQ-2 on12/20/23.Satisfied by CIELO Costello Lori Electronic Signature on File Electronically Reviewed/Signed by: Niya Poole DO Author Signature Dt/Tm:12/20/2023 05:00 PM Department of Family Medicine MAF Patient Care team information Care Team Personnel Name: Alan Marsh Todd Position: Pharmacist Schedule II Member Role: Pharmacy - Lifetime Address: [address] [place] [id number] [place] Name: Alan Garcia Francis Position: Pharmacist Schedule II Member Role: Pharmacy - Lifetime Address: [facility] [address] [place] [address] [place] Name: CLAUDIA Melvin Katy Marie Position: Nurse Pract - Family Med Member Role: Lifetime Relationship Address: [address] [place] [address] [place] Name: MD Cristian, Gavin Gomes Position: Physician Member Role: Primary Care Provider Address: [address] [place] [address] Care Team Related Persons Name: SUMI VÁSQUEZ Name: LISSETH VÁSQUEZ Name: LISSETH VÁSQUEZ Name: SARA BURDICK Name: MARY JANE DAMIAN"
--- OUTSIDE RECORDS SUMMARY | 2024-01-15 19:10 | External Medical Summary | Continuity of Care Document ---
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 Name Role Phone Gavin Foster Primary Care Physician [phone] [id number] Date(s): 12/27/23 - 12/27/23 [place] [address] [place] [address] [phone] Encounter Diagnosis Paroxysmal atrial fibrillation(Discharge Diagnosis) - 12/27/23 Nonischemic cardiomyopathy(Discharge Diagnosis) - 12/27/23 Afib(Discharge Diagnosis) - 12/27/23 Chronic right-sided CHF (congestive heart failure)(Discharge Diagnosis) - 12/27/23 Discharge Disposition: Home or Self Care Attending Physician: DO Ross Michelle L Allergies, Adverse Reactions, Alerts Substance Criticality Severity Reaction Reaction Severity Status azithromycin Active penicillins Active Lyrica Able to recogni se own emotional pain and distress Active Neurontin emotional distress A ctive Dust Nasal itching Active Mold Nasal congestion Act manoj Immunizations Given and Recorded Vaccine Date Status [...] hs, Disp# 120 tab, Refills: 0, Pharmacy: [facility]/pharmacy #[id number] Start Date: 12/16/23 Status: Ordered cholecalciferol 25 mcg (1000 intl units) oral capsule Start: 12/16/23 5:21:00 PM EDT, 1 cap, PO, qhs, Disp# 90 cap, Refills: 3, [id number] Start Date: 12/16/23 Status: Ordered colchicine 0.6 mg oral tablet Start: 12/18/23 5:15:00 PM EDT, 1 tab, PO, Daily, Disp# 30 tab, Refills: 3, Max of 3 tabs (1.8mg) per day, PRN: as needed for gout pain, [id number] Start Date: 12/18/23 Status: Ordered diazePAM 5 mg oral tablet Start: 12/11/23 1:11:00 PM EDT, 1 tab, PO, bid, Disp# 60 tab, Refills: 0, Note to Pharmacy: PDMP verified, [id number] Start Date: 12/11/23 Status: Ordered dicyclomine 10 mg oral capsule Start: 12/20/23 2:33:00 PM EDT, 1 cap, PO, tid, as needed Start Date: 12/20/23 Status: Ordered famotidine 20 mg oral tablet Start: 10/09/23 1:53:00 PM EDT, 1 tab, PO, bid, Disp# 60 tab, Refills: 3, [id number] Start Date: 10/09/23 Status: Ordered furosemide [...] supply, PRN: as needed for pain, Pharmacy: [facility] #[id number] Start Date: 12/16/23 Stop Date: 01/15/24 Status: Ordered pantoprazole 40 mg oral delayed release tablet Start: 10/11/23 10:34:00 AM EDT, 1 tab, PO, bid, Disp# 90 tab, Pharmacy: [facility] #[id number] Start Date: 10/11/23 Status: Ordered PARoxetine 20 mg oral tablet Start: 12/16/23 5:16:00 PM EDT, 1 tab, PO, Daily, Disp# 30 tab, Refills: 11, take with the 40mg tablet to equal 60mg total, Pharmacy: [facility] #[id number] Start Date: 12/16/23 Stop Date: 12/10/24 Status: Ordered PARoxetine 40 mg oral tablet Start: 12/16/23 5:16:00 PM EDT, 1 tab, PO, Daily, Disp# 30 tab, Refills: 11, take with the 20mg tablet to equal 60mg total, [facility] Start Date: 12/16/23 Stop Date: 12/10/24 Status: Ordered rosuvastatin 40 mg oral tablet Start: 07/04/23 10:57:00 AM EST, 1 tab, PO, qhs, Disp# 90 tab, Refills: 1, Pharmacy: [id number] Start Date: 07/04/23 Status: Ordered warfarin 2.5 mg oral tablet Start: 10/11/23 3:23:00 PM EDT, See Instructions, Disp# 45 tab, Refills: 2, Take yid-giu-v-half tablets daily by mouth as directed by [facility] Note to Pharmacy: ?s: El [phone]., Pharmacy: [facility] #[id number] Start Date: 10/11/23 Status: Ordered warfarin 2.5 mg oral tablet Start: 11/11/23 1:18:00 PM EDT, See Instructions, Disp# 45 tab, Refills: 3, Take izy-tpe-t-half tablets daily by mouth as directed by [facility]., Note to Pharmacy: ?s: El [phone]., Pharmacy: [facility]/pharmacy #[id number] Start Date: 11/11/23 Status: Ordered Problem List Condition Confirmation Course Effective Dates [...] Effective Dates Health Status Clinical Service Informant Paroxysmal atrial fibrillation Discharge Diagnosis 12/27/23 Non-Specified Afib Discharge Diagnosis 12/27/23 Non-Specified Nonischemic cardiomyopathy Discharge Diagnosis 12/27/23 Non-Specified Chronic right-sided CHF (congestive heart failure) Discharge Diagnosis 12/27/23 Non-Specified Procedures Procedure Date Related Diagnosis Body [...] Most recent to oldest [Reference Range]: 1 Patient Weight 89 kg (12/27/23 3:52 PM) Heart Rate 66 bpm (12/27/23 3:52 PM) Blood Pressure 88/64mmHg (12/27/23 3:52 PM) BP Location # 1 Right Arm (12/27/23 3:52 PM) Social History Social History Type Response Tobacco Former smoker Smoking Status Former Smoker, quit > 1 yr Sex Male Sex Representation Male (finding) Patient Care team information Care Team Personnel Name: Alan Marsh Todd Position: Pharmacist Schedule II Member Role: Pharmacy - Lifetime Address: [address] [place] [address] [place] Name: Alan Garcia Francis Position: Pharmacist Schedule II Member Role: Pharmacy - Lifetime Address: [facility] [address] [place] [address] [place] Name: CLAUDIA Melvin Katy Marie Position: Nurse Pract - Family Med Member Role: Lifetime Relationship Address: [address] [address] [place] Name: MD Cristian, Gavin Gomes Position: Physician Member Role: Primary Care Provider Address: [address] [place] [address] [place] Care Team Related Persons Name: EVANGELINA VÁSQUEZ Name: LISSETH VÁSQUEZ Name: LISSETH VÁSQUEZ Name: SARA BURDICK Name: MARY JANE DAMIAN
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
[2024-01-15 19:36] VITALS: BP 101/64; PULSE 59; RESP 18; O2SAT 94
[2024-01-15 19:47] LABS: Base Excess VBG -2.6 mEq/L; HCO3 VBG 23 mmol/L; Oxygen Saturation VBG 97.9 %; PCO2 VBG 43 mmHg (38-50); PO2 VBG 121 mmHg; pH VBG 7.34 (7.36-7.41)
--- NOTE | 2024-01-15 21:28 | Communication Note ---
Date of Service: January 15, 2024 Sawyer is seen at the bedside. Notified by nursing that patient requesting to leave AMA, agitated. He is seen in the hallway outside of his room. He is alert and mentation improved from prior. Last VBG reviewed, hypercapnia resolved. Discussed with nursing patient has received no pain medications/benzodiazepines. Patient reports he wishes to leave the hospital. At assessment he is oriented to name, date, and place. He is able to elicit why he came to the hospital. He reports he is aware that he was treated for hypercapnia, has a elevated INR with a risk of bleeding, and was treated for potential CHF with diuretics although his renal function is elevated. Patient was confused when he arrived, appears improved and patient is aware that he was brought in by EMS. Discussed that it is recommended he remain in the morning for repeat electrolyte measurement, repeat INR, repeat creatinine measurement and with an a.m. gas given his spray alkalosis on presentation. He expresses an understanding of this, but would like to leave and understands that there is a risk of bleeding, respiratory failure, and kidney injury which could cause severe/permanent injury or . He reports he does not wishes to stay and would like to leave AGAINST MEDICAL ADVICE. He requests to have an Uber for transport home. Patient's sister/primary contact Sumi by phone contacted provider by phone; She reports that he has had many frustrations with the hospital system and has signed out AMA many times and does get frustrated with hospitals. She is arranging transport to have him picked up from the hospital and brought home.
[2024-01-15] MEDS ORDERED: HEPARIN SOD 5,000 UNIT/0.5 ML VIAL SQ SCH (22:00)
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
--- NOTE | 2024-01-16 14:19 | Electrocardiogram Report ---
Test Reason : Blood Pressure : */* mmHG Vent. Rate : 55 BPM Atrial Rate : 55 BPM P-R Int : 172 ms QRS Dur : 80 ms QT Int : 444 ms P-R-T Axes : 57 22 34 degrees QTcB Int : 424 ms Sinus bradycardia Otherwise normal ECG When compared with ECG of 15-Jan-2024 11:35, Nonspecific T wave abnormality, improved in Inferior leads Nonspecific T wave abnormality no longer evident in Lateral leads Confirmed by Ilia Osborne ([id number]) on 01/16/2024 2:19:28 PM Referred By: REFERRED SELF Confirmed By: Ilia Osborne
== END 2024-01-15 22:15 | disposition left against medical advice (07) | DRG 189 ==
LOC: ED 11:31 → 2N 16:49

== ENCOUNTER 2024-05-13 11:37 | Observation (INO) ==
[2024-05-13] MEDS: MoRPHine SULFATE 4 MG/ML 1 ML CARP\\VIAL IV PRN (12:05)
[2024-05-13] MEDS: ONDANSETRON INJ 2 MG/ML 2 ML VIAL IV STA (12:05)
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
[2024-05-13 12:17] LABS: Basophils # (auto) 0.02 K/uL (0.00-0.20); Basophils % (auto) 0.3 %; Eosinophils # (auto) 0.09 K/uL (0.00-0.50); Eosinophils % (auto) 1.5 %; Hematocrit (blood only) 34.4 % (42.0-52.0); Hemoglobin 12.3 g/dl (14.0-18.0); Immature Granulocytes # (auto) 0.02 K/uL (0.01-0.20); Immature Granulocytes % (auto) 0.3 %; Lymphocytes % (auto) 14.8 %; Mean Corpuscular Hemoglobin 33.2 pg (25.0-34.0); Mean Corpuscular Hgb Conc 35.8 g/dL (32.0-36.0); Mean Platelet Volume 10.3 fL (9.4-12.4); Monocytes # (auto) 0.93 K/uL (0.11-0.59); Monocytes % (auto) 15.3 %; Neutrophils # (auto) 4.12 K/uL (1.40-6.50); Neutrophils % (auto) 67.8 %; Platelet Count 173 K/uL (130-400); RDW Coefficient of Variation 13.3 % (11.5-14.5); RDW Standard Deviation 45.6 fL (36.4-46.3); White Blood Count 6.08 K/ul (4.8-10.8)
--- NOTE | 2024-05-13 12:29 | XRay Report ---
XR chest 1V portable CLINICAL HISTORY: fall TECHNIQUE: Single frontal radiograph of the chest was obtained. Comparison: Comparison is made to chest radiograph 01/15/2024 FINDINGS: ACDF is seen. Calcified aortic knob is seen. The lungs are clear. No evidence of pleural effusion or pneumothorax. IMPRESSION: No acute chest disease. ACT 112: Negative or not required by law. Electronically signed by: Maico Nguyễn M.D. 05/13/2024 12:28 PM
[2024-05-13 12:37] LABS: Albumin Globulin Ratio 1.6 (0.9-2); Albumin Level 4.4 gm/dl (3.4-5.0); BUN Creatinine Ratio 16.3 (10-20); Bilirubin,Total 1.4 mg/dl (0.2-1.0); Calcium 9.5 mg/dl (8.6-10.3); Creatinine Clr Calc Pharmacy 53.3 ml/min; Globulin 2.7 gm/dl (2.5-4.0); Potassium 3.7 mmol/L (3.5-5.1); Total Protein 7.1 gm/dl (6.0-8.3)
[2024-05-13 12:42] LABS: Troponin I High Sensitivity 17.6 pg/ml (0-20)
[2024-05-13 12:44] LABS: Partial Thromboplastin Ratio 2.2; Partial Thromboplastin Time 60 Seconds (21-31)
[2024-05-13] MEDS: OPTIRAY 320 100ml IV ONE (12:48)
[2024-05-13 12:49] LABS: INR 6.7 (0.9-1.1)
--- NOTE | 2024-05-13 13:27 | CT Scan Report ---
ABDOMEN AND PELVIS CT WITH IV CONTRAST CT DOSE: 1556.22 mGy.cm HISTORY: fall, right pelvis hematoma TECHNIQUE: Multiaxial CT images of the abdomen and pelvis were performed following the IV administrat ion of 94 cc of Optiray, A dose lowering technique was utilized adhering to the principles of ALARA. COMPARISON STUDY: 04/23/2024 FINDINGS: ABDOMEN: Liver, gallbladder, spleen, pancreas, and adrenal glands are unremarkable. Kidneys show no h ydronephrosis or calculi. There are a few stable small cyst at the right kidney. There are scattered atherosclerotic calcifications. No abdominal aortic aneurysm. Pelvis: There is a stable small ventral hernia containing a nonobstructed small bowel loop. Stable ab sence of the prostate. Urinary bladder is nondistended. There is mild colonic diverticulosis. No acut e diverticulitis. No bowel inflammation or obstruction. No free fluid, free air, or abscess. There is a small amount of patchy density and surrounding soft tissue stranding in the medial inferior right gluteal region measuring 7 cm in greatest dimension, consistent with small soft tissue hematoma. No e vidence of active hemorrhage seen. Osseous structures: Stable lumbar and right SI joint metallic fusion. No fracture seen at the visuali zed osseous structures. IMPRESSION: 1. Small superficial soft tissue hematoma right gluteal region. No underlying fracture seen. 2. Otherwise as described. ACT 112: Negative or not required by law. The above report was generated using voice recognition software. It may contain grammatical, syntax o r spelling errors. Electronically signed by: Emigdio Gilbert M.D. 05/13/2024 1:25 PM
[2024-05-13] MEDS: PHYTONADIONE 5 MG TAB PO STA (14:21)
[2024-05-13] MEDS: SODIUM CHLORIDE 0.9% 500 ML IV ONE ×2 (14:22→15:00)
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
[2024-05-13 18:28] LABS: Appearance Urine Clear (Clear); Bacteria Urine Automated None Seen (None Seen); Bilirubin Urine Negative (Negative); Blood Urine Negative (Negative); Color Urine Yellow; Epithelial Cell Urine Auto 0-2 /hpf (0-2); Glucose Urine UA Negative (Negative); Ketones Urine 1+ (Negative); Leukocyte Esterase Urine Negative (Negative); Nitrite Urine Negative (Negative); Protein Urine Trace (Negative); RBC Urine Automated 0-2 /hpf (0-2); Specific Gravity Urine > 1.045 (1.000-1.030); Urobilinogen Urine Negative (Negative); WBC Urine Automated 0-5 /hpf (0-5)
--- OUTSIDE RECORDS SUMMARY | 2024-05-13 19:14 | External Medical Summary | Continuity of Care Document ---
Author Name Unknown Organization [facility] [address] [facility] Address [address] [place] [address] [phone] Care Team Providers Care Internet Sales Director Name Role Phone Gann Niya Poole Primary [facility] P debora [phone] Encounter [facility] [id number] Date(s): 05/01/24 - 05/01/24 [facility] [address], [address] [place] [address] [phone] Discharge Disposition: Home or Self Care Attending Physician: DO Ross Michelle L Referring Physician: DO Ross Michelle L Allergies, Adverse Reactions, Alerts Substance Criticality Severity Reaction Reaction Severity Status azithromycin Active penicillins Active Neurontin emotional distress A ctive Lyrica Able to recogni se own emotional pain and distress Active Dust Nasal itching Active Mold [...] tetanus/diphtheria/pertuss, acel (Tdap) 05/06/11 R ecorded Medications cholecalciferol 25 mcg (1000 intl units) oral capsule Start: 12/16/23 5:21:00 PM EDT, 1 cap, PO, qhs, Disp# 90 cap, Refills: 3, Pharmacy: [id number] Start Date: 12/16/23 Status: Ordered colchicine 0.6 mg oral tablet Start: 12/18/23 5:15:00 PM EDT, 1 tab, PO, Daily, Disp# 30 tab, Refills: 3, Max of 3 tabs (1.8mg) per day, PRN: as needed for gout pain, [facility] Start Date: 12/18/23 Status: Ordered diazePAM 5 mg oral tablet Start: 04/08/24 3:15:00 PM EST, 1 tab, PO, bid, Disp# 60 tab, Refills: 0, Note to Pharmacy: PDMP verified. Do not fill earlier than 28 days from last fill., Pharmacy: [facility] #[facility] Start Date: 04/08/24 Status: Ordered famotidine 20 mg oral tablet Start: 10/09/23 1:53:00 PM EDT, 1 tab, PO, bid, Disp# 60 tab, Refills: 3, Pharmacy: [facility] #[facility] Start Date: 10/09/23 Status: Ordered furosemide 20 mg oral tablet Start: 12/20/23 2:38:00 PM EDT, 1 tab, PO, Daily Start Date: 12/20/23 Status: Ordered Metoprolol Succinate ER 25 mg oral tablet, extended release Start: 02/19/24 3:40:00 PM EDT, 1 tab, PO, Daily, Disp# 90 tab, Refills: 3, Pharmacy: [facility] #[facility] Start Date: 02/19/24 Status: Ordered multivitamin Start: 06/21/15 1:07:00 PM EST, 1 tab, PO, Daily Start Date: 06/21/15 Status: Ordered oxyCODONE 5 mg oral tablet Start: 04/08/24 3:15:00 PM EST, 5 mg =, PO, tid, Disp# 90 tab, Refills: 0, Note to Pharmacy: PDMP verified, Do not fill earlier than 28 days from last fill., PRN: as needed for pain, Pharmacy: [facility] #[facility] Start Date: 04/08/24 Stop Date: 05/08/24 Status: Ordered pantoprazole 40 mg oral delayed release tablet Start: 04/23/24 2:20:00 PM EST, 1 tab, PO, Daily, Disp# 90 tab, Refills: 3, Pharmacy: [id number] Start Date: 04/23/24 Status: Ordered PARoxetine 20 mg oral tablet Start: 04/08/24 3:15:00 PM EST, 1 tab, PO, Daily, Disp# 90 tab, Refills: 3, take with the 40mg tablet to equal 60mg total, Pharmacy: [facility][id number] Start Date: 04/08/24 Status: Ordered PARoxetine 40 mg oral tablet Start: 03/03/24 3:22:00 PM EDT, 1 tab, PO, Daily, Disp# 90 tab, Refills: 3, take with the 20mg tablet to equal 60mg total, Pharmacy: [facility] #[id number] Start Date: 03/03/24 Status: Ordered rosuvastatin 40 mg oral tablet Start: 01/01/24 8:00:00 AM EDT, 1 tab, PO, qhs, Disp# 90 tab, Refills: 1, Pharmacy: [facility] [id number] Start Date: 01/01/24 Status: Ordered warfarin 2.5 mg oral tablet Start: 10/11/23 3:23:00 PM EDT, See Instructions, Disp# 45 tab, Refills: 2, Take rwz-pzj-b-half tablets daily by mouth as directed by [facility]., Note to Pharmacy: ?s: El [phone]., Pharmacy: [facility] #[id number] Start Date: 10/11/23 Status: Ordered warfarin 2.5 mg oral tablet Start: 03/03/24 3:22:00 PM EDT, See Instructions, Disp# 135 tab, Refills: 3, Take srp-aos-x-half tablets daily by mouth as directed by [facility]., Note to Pharmacy:?s: El [phone]., Pharmacy: [facility] #[id number] Start Date: 03/03/24 Status: Ordered Problem List Condition Confirmation Course Effective Dates Status Health St atus Informant Abnormal gait Confirmed Active Anemia Confirmed Active Atrial fibrillation Confirmed Active Chronic anxiety Confirmed Active Chronic back pain Confirmed Active Chronic renal failure, stage 3 (moderate) Confirmed Active Depression Confirmed Active 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 Confirmed Active Opioid contract exists Confirmed Active GERD (gastroesophageal reflux disease) Confirmed Active Headache Confirmed Active Hearing loss Confirmed Active HFrEF (heart failure with reduced ejection fraction) Confirmed Active History of lumbar fusion Confirmed Active Hx of carcinoma in situ of prostate Confirmed Active History of spinal fusion Confirmed Active Hypertension Confirmed Active Failed back syndrome, lumbar Confirmed Active Spinal stenosis in cervical region Confirmed Active Spinal stenosis of lumbar region Confirmed Active Tremor Confirmed Active Procedures Procedure Date Related Diagnosis Body Site [...] prostate sonography 10Biopsy showed 1 core of [place] 3 + 3 11prostate biopsy 12Repaet in 10 years Negative exam 13Right 145-10 years; normal exam 15x2 Right 16lumbar region 17cheek bone 18Left ulnar Results Radiology Reports * Exam Date Time Procedure Performing Provider Status 05/01/24 8:52 AM Echo TransTHORacic TTE Complete [place]; Final Notes: (Echo TransTHORacic TTE Complete) Reason For Exam: f/u LV and RV function s/p cardioversion Echo TransTHORacic TTE Complete Report Signatures Finalized by Dr. Karen Ross DO on 05/01/2024 06:17 PM [place] Act 112: No-No further action needed Summary 1. Normal left ventricular size and systolic function with no regional wall motion abnormalities. 2. Ejection fraction as calculated by Biplane Simpsons method is 60%. 3. Mild left ventricular hypertrophy. 4. Grade II diastolic dysfunction of the left ventricle (pseudonormal filling pattern). 5. Mildly dilated right ventricle with normal systolic function. 6. Severely dilated left atrium. 7. Dilated right atrium. 8. Moderate mitral valve regurgitation. 9. Insufficient TR for estimation of pulmonary artery systolic pressure. 10. Elevated estimated pulmonary arterial mean pressure (24 mmHg). 11. No prior studies for comparison. Recommendations * Patient noted to be in normal sinus rhythm during the echo. The overall ejection fraction has improved compared to the patient's prior study done at [facility]. Patient Info Name: ENRIQUE VÁSQUEZ Age: 74 years : 1950 Gender: Male Ht: 183 cm Wt: 96 kg BSA: 2.23 m2 HR: 62 bpm BP: 138 / 80 mmHg Heart Rhythm: Sinus Rhythm Technical Quality: Good Exam Date: 05/01/2024 8:07 AM Exam Location: [facility] Patient Status: Outpatient Staff Ordering Physician: Karen Ross Doper: Ivory Santana RDCS, RVT Attending Physician: Karen Ross ([email or web address]) Study Info CPT 89293 - Indications I480 - Paroxysmal Atrial Fibrillation Procedure(s) * A complete two-dimensional, color flow and Doppler transthoracic echocardiogram was performed. Exam Type: Cardiac Basic Left Ventricle Normal left ventricular size and systolic function with no regional wall motion abnormalities. Ejection fraction as calculated by Biplane Simpsons method is 60%. Mild left ventricular hypertrophy. Grade II diastolic dysfunction of the left ventricle (pseudonormal filling pattern). Right Ventricle Mildly dilated right ventricle with normal systolic function. TAPSE is normal, 1.7 cm. Left Atrium Severely dilated left atrium. Right Atrium Dilated right atrium. Atrial Septum Lipomatous hypertrophy of the atrial septum; Appears intact. Aortic Valve Mildly calcified, tricuspid aortic valve without stenosis or insufficiency. Pulmonic Valve Mild pulmonary regurgitation. Elevated estimated pulmonary arterial mean pressure (24 mmHg). Mitral Valve Moderate mitral valve regurgitation. Tricuspid Valve Unremarkable tricuspid valve. Trace tricuspid valve regurgitation. Insufficient TR for estimation of pulmonary artery systolic pressure. Pericardium/Pleural No pericardial effusion. Inferior Vena Cava Normal IVC size and inspiratory collapse. Estimated right atrial pressure is 3 mmHg. Aorta Normal aortic root size for BSA. Calcified aortic root. The ascending aorta is mildly dilated for BSA, measuring 4.0 cm with an index of 1.77 cm/m2. Left Ventricular Outflow Tract Name Value Normal LVOT 2D LVOT Diameter 2.5 cm LVOT Doppler LVOT Peak Velocity 0.68 m/s LVOT Mean Gradient 1 mmHg LVOT VTI 14.90 cm LVOT Stroke Volume 70.21 ml LVOT Stroke Volume Index 0.03 l/m2 LVOT Cardiac Output 4.35 l/min LVOT Cardiac Index 1.95 L/min/m2 Pulmonic Valve Name Value Normal PV 2D RVOT Diameter (2D) 3.4 cm 1.7-2.7 RVOT Doppler RVOT Peak Velocity 0.47 m/s PV Doppler PV Peak Velocity 0.83 m/s PV Regurgitation Doppler GA Peak Velocity 2.30 m/s GA Decel Time 1,127 ms GA PHT 327 ms Mitral Valve Name Value Normal MV Doppler MV PHT 53 ms MV Regurgitation Doppler MR ERO (PISA) 0.23 cm2 MV Diastolic Function MV E Peak Velocity 0.83 m/s <=0.50 MV A Peak Velocity 0.34 m/s MV E/A 2.46 <=0.80 MV Decel Time 183 ms MV Annular TDI MV Septal s' Velocity 6.16 cm/s MV Septal e' Velocity 8.11 cm/s >=7.00 MV E/e' (Septal) 10.2 <=8.0 MV Lateral s' Velocity 7.30 cm/s MV Lateral e' Velocity 11.80 cm/s >=10.00 MV E/e' (Lateral) 7.04 <=8.00 MV e' Average 9.96 MV E/e' (Average) 8.64 <=14.00 Tricuspid Valve Name Value Normal TV Regurgitation Doppler TR Peak Velocity 1.88 m/s <=2.80 TR Peak Gradient 14 mmHg Estimated PAP/RSVP RA Pressure 3 mmHg <=5 PA Systolic Pressure 17 mmHg <40 PA Mean Pressure (GA Velocity) 24 mmHg TV Diastolic Function TV E Peak Velocity 0.40 m/s TV A Peak Velocity 0.27 m/s TV E/A 1.47 0.80-2.00 TV Decel Time 201 ms >=120 TV Annular TDI TV Lateral Haleigh s' Velocity 8.4 cm/s 9.5-18.7 TV Lateral Haleigh e' Velocity 7.6 cm/s <7.8 TV E/e' 5.23 2.00-6.00 Aorta Name Value Normal Ascending Aorta Sinus of Valsalva Diameter 3.8 cm 3.1-3.7 Sinus of Valsalva Index 1.71 cm/m2 1.50-1.90 Prox Asc Ao Diameter 4.0 cm 2.6-3.4 Prox Asc Ao Diameter Index 1.77 cm/m2 1.30-1.70 Thoracic Aorta Ao Arch Diameter 3.6 cm Desc Ao Peak Velocity 0.73 m/s Desc Ao Peak Gradient 2 mmHg Venous Name Value Normal IVC/SVC IVC Diameter (Insp 2D) 0.8 cm IVC Diameter (Exp 2D) 2.0 cm <=2.1 IVC Diameter Percent Change (2D) 63 % >=50 Aortic Valve Name Value Normal AV Doppler AV Peak Velocity 1.15 m/s <2.00 AV Area (Cont Eq Gurwinder) 2.8 cm2 AV Area Index (Cont Eq Gurwinder) 1.24 cm2/m2 AV V1/V2 Ratio 0.59 AV Regurgitation 2D LVOT Area 4.7 cm2 Ventricles Name Value Normal LV Dimensions 2D/MM IVS Diastolic Thickness (2D) 1.1 cm 0.6-1.0 LVID Diastole (2D) 5.0 cm 3.6-5.6 LVIW Diastolic Thickness (2D) 1.1 cm 0.6-1.0 LVID Systole (2D) 3.3 cm 2.5-4.0 LVOT Diameter 2.5 cm LV Mass (2D Cubed) 198.31 g 88.00-224.00 LV Mass Index (2D Cubed) 0.01 g/cm2 0.00-0.01 Relative Wall Thickness (2D) 0.44 LV Fractional Shortening/Ejection Fraction 2D/MM LV Fractional Shortening (2D) 34 % 25-43 LV Diastolic Volume (4C MOD) 122 ml LV Diastolic Volume (2C MOD) 131 ml LV Diastolic Volume (BP MOD) 126 ml 62-150 LV Diastolic Volume Index (BP MOD) 56.62 ml/m2 34.00-74.00 LV Systolic Volume (BP MOD) 51 ml 21-61 LV Systolic Volume Index (BP MOD) 23.09 ml/m2 11.00-31.00 LV EF (BP MOD) 60 % 57-68 LV SV (BP MOD) 74.75 ml RV Dimensions 2D/MM RV Basal Diastolic Dimension 4.2 cm 2.5-4.1 TAPSE 1.7 cm >=1.7 Atria Name Value Normal LA Dimensions LA Area (4C) 30.1 cm2 LA Length (4C) 6.2 cm LA Area (2C) 26.9 cm2 LA Length (2C) 6.2 cm LA Volume (4C A-L) 124.46 ml LA Volume (2C A-L) 99.68 ml LA Volume (BP A-L) 112 ml 18-58 LA Volume Index (BP A-L) 50.04 ml/m2 <=34.00 RA Dimensions RA Area (4C) 21.5 cm2 <=18.0 Final Signed by:DO Ross Michelle L Signed (Electronic Signature):05/01/2024 8:07 a Social History Social History Type Response Tobacco Former smoker Smoking Status Never smoked cigaret jae Sex Male Sex Representation Male (finding) Patient Care team information Care Team Personnel Name: Sanjuanita Poole DO, Mariana Annette Position: Physician - Family Med Member Role: Primary Care Provider Address: [address] [place] [id number] [place] Name: Alan Marsh Todd Position: Pharmacist Schedule II Member Role: Pharmacy - Lifetime Address: [address] [place] [address] [place] Name: Alan Garcia Francis Position: Pharmacist Schedule II Member Role: Pharmacy - Lifetime Address: [facility] [address] [place] [address] [place] Name: CLAUDIA Melvin Katy Marie Position: Nurse Pract - Family Med Member Role: Lifetime Relationship Address: [address] [place] [address] [place] Care Team Related Persons Name: EVANGELINA VÁSQUEZ Name: LISSETH VÁSQUEZ Name: LISSETH VÁSQUEZ Name: SARA BURDICK Name: MARY JANE DAMIAN
--- OUTSIDE RECORDS SUMMARY | 2024-05-13 19:14 | External Medical Summary | Continuity of Care Document ---
Author Name Unknown Organization [facility] Address [address] [place] [id number] Care Team Providers Care Airline Station Agent Name Role Phone Niya Cordero Primary Care debora [phone] [id number] Date(s): 05/05/24 - 05/05/24 [facility] [address], [address] [place] [address] [phone] Encounter Diagnosis Paroxysmal atrial fibrillation(Discharge Diagnosis) - 05/05/24 Diastolic dysfunction(Discharge Diagnosis) - 05/05/24 HFrEF (heart failure with reduced ejection fraction)(Discharge Diagnosis) - 05/05/24 High cholesterol(Discharge Diagnosis) - 05/05/24 Discharge Disposition: Home or Self Care Attending [...] qhs, Disp# 90 cap, Refills: 3, Pharmacy: [id number] Start Date: 12/16/23 Status: Ordered colchicine 0.6 mg oral tablet Start: 12/18/23 5:15:00 PM EDT, 1 tab, PO, Daily, Disp# 30 tab, Refills: 3, Max of 3 tabs (1.8mg) per day, PRN: as needed for gout pain, Pharmacy: [facility] #[id number] Start Date: 12/18/23 Status: Ordered diazePAM 5 mg oral tablet Start: 05/07/24 12:57:00 PM EST, 1 tab, PO, bid, Disp# 60 tab, Refills: 0, Note to Pharmacy: PDMP verified. Do not fill earlier than 28 days from last fill., [id number] Start Date: 05/07/24 Status: Ordered furosemide 20 mg oral tablet Start: 12/20/23 2:38:00 PM EDT, 1 tab, PO, Daily Start Date: 12/20/23 Status: Ordered Metoprolol Succinate ER 25 mg oral tablet, extended release Start: 02/19/24 3:40:00 PM EDT, 1 tab, PO, Daily, Disp# 90 tab, Refills: 3, Pharmacy: [facility] # Start Date: 02/19/24 Status: Ordered multivitamin Start: 06/21/15 1:07:00 PM EST, 1 tab, PO, Daily Start Date: 06/21/15 Status: Ordered oxyCODONE 5 mg oral tablet Start: 05/07/24 12:57:00 PM EST, 5 mg =, PO, tid, Disp# 90 tab, Refills: 0, Note to Pharmacy: PDMP verified, Do not fill earlier than 28 days from last fill., PRN: as needed for pain, [id number] Start Date: 05/07/24 Stop Date: 06/06/24 Status: Ordered pantoprazole 40 mg oral delayed release tablet Start: 04/23/24 2:20:00 PM EST, 1 tab, PO, Daily, Disp# 90 tab, Refills: 3, Pharmacy: [facility] #[facility] Start Date: 04/23/24 Status: Ordered PARoxetine 20 mg oral tablet Start: 04/08/24 3:15:00 PM EST, 1 tab, PO, Daily, Disp# 90 tab, Refills: 3, take with the 40mg tablet to equal 60mg total, [id number] Start Date: 04/08/24 Status: Ordered PARoxetine 40 mg oral tablet Start: 05/07/24 12:57:00 PM EST, 1 tab, PO, Daily, Disp# 90 tab, Refills: 3, take with the 20mg tablet to equal 60mg total, [id number] Start Date: 05/07/24 Status: Ordered rosuvastatin 40 mg oral tablet Start: 01/01/24 8:00:00 AM EDT, 1 tab, PO, qhs, Disp# 90 tab, Refills: 1, Pharmacy: [facility] [id number] Start Date: 01/01/24 Status: Ordered warfarin 2.5 mg oral tablet Start: 10/11/23 3:23:00 PM EDT, See Instructions, Disp# 45 tab, Refills: 2, Take zdb-wzm-u-half tablets daily by mouth as directed by [facility]., Note to Pharmacy: ?s: El [phone]., [id number] Start Date: 10/11/23 Status: Ordered warfarin 2.5 mg oral tablet Start: 03/03/24 3:22:00 PM EDT, See Instructions, Disp# 135 tab, Refills: 3, Take xiv-qnn-p-half tablets daily by mouth as directed by [facility]., Note to Pharmacy:?s: El [phone]., Pharmacy: [facility] #[id number] Start Date: 03/03/24 Status: Ordered Mental Status 05/05/24 Barriers to Learning one year None evide nt Mandatory Health Literacy Documentation Yes Health Literacy Communication Barriers N ever Primary Language Yemeni Problem List Condition Confirmation Course Effective Dates [...] Effective Dates Health Status Clinical Service Informant Diastolic dysfunction Discharge Diagnosis 05/05/24 Non-Specified HFrEF (heart failure with reduced ejection fraction) Discharge Diagnosis 05/05/24 Non-Specified Paroxysmal atrial fibrillation Discharge Diagnosis 05/05/24 Non-Specified Procedures Procedure Date Related Diagnosis Body [...] prostate sonography 10Biopsy showed 1 core of [place] 3 + 3 11prostate biopsy 12Repaet in 10 years Negative exam 13Right 145-10 years; normal exam 15x2 Right 16lumbar region 17cheek bone 18Left ulnar Vital Signs Most recent to oldest [Reference Range]: 1 Patient Weight 92.1 kg (05/05/24 11:40 AM) Heart Rate 68 bpm (05/05/24 11:40 AM) Blood Pressure 138/82mmHg (05/05/24 11:40 AM) Cuff Pulse Pressure 56 mmHg (05/05/24 11:40 AM) Social History Social History Type Response Tobacco Former smoker Smoking Status Never smoked cigaret jae Sex Male Sex Representation Male (finding) Patient Care team information Care Team Personnel Name: Sanjuanita Poole DO, Mariana Annette Position: Physician - Family Med Member Role: Primary Care Provider Address: [address] [place] [address] [place] Name: Alan Marsh Todd Position: Pharmacist Schedule II Member Role: Pharmacy - Lifetime Address: [address] [place] [address] [place] Name: Alan Garcia Francis Position: Pharmacist Schedule II Member Role: Pharmacy - Lifetime Address: [facility] [address] [place] [address] [place] Name: CLAUDIA Melvin Katy Marie Position: Nurse Pract - Family Med Member Role: Lifetime Relationship Address: [address] [place] [address] [place] Care Team Related Persons Name: EVANGELINA VÁSQUEZ Name: LISSETH VÁSQUEZ Name: LISSETH VÁSQUEZ Name: SARA BURDICK Name: MARY JANE DAMIAN
--- OUTSIDE RECORDS SUMMARY | 2024-05-13 19:14 | External Medical Summary | Continuity of Care Document ---
Author Name Unknown Organization [address] Address [address] [place] [phone] Care Team Providers Care Filler Sifter Helper Name Role Phone Niya Cordero Primary [facility] P hysicichristian [phone] Encounter [facility] [id number] Date(s): 04/23/24 - 04/23/[address] [facility] [address] [facility], [facility] [address] [place] [address] [place] [phone] Encounter Diagnosis Hypertension(Discharge Diagnosis) - 04/23/24 Pain in the abdomen(Discharge Diagnosis) - 04/23/24 Chronic low back pain(Discharge Diagnosis) - 04/23/24 Chronic neck pain(Discharge Diagnosis) - 04/23/24 Discharge Disposition: Home or Self Care Attending [...] Visit Note Author:Sanjuanita Poole DO, Mariana Annette Date:04/23/24 1.Hypertension Better today likely related to pain 2.Pain in the abdomen Unclear etiology will obtain CT abd/pelvis 3.Chronic neck pain 4.Chronic low back pain Referral to pain management for evaluation Immunizations Given and Recorded Vaccine Date Status [...] qhs, Disp# 90 cap, Refills: 3, Pharmacy: [facility]/pharmacy #[id number] Start Date: 12/16/23 Status: Ordered colchicine 0.6 mg oral tablet Start: 12/18/23 5:15:00 PM EDT, 1 tab, PO, Daily, Disp# 30 tab, Refills: 3, Max of 3 tabs (1.8mg) per day, PRN: as needed for gout pain, [facility] Start Date: 12/18/23 Status: Ordered diazePAM 5 mg oral tablet Start: 04/08/24 3:15:00 PM EST, 1 tab, PO, bid, Disp# 60 tab, Refills: 0, Note to Pharmacy: PDMP verified. Do not fill earlier than 28 days from last fill., [id number] Start Date: 04/08/24 Status: Ordered famotidine 20 mg oral tablet Start: 10/09/23 1:53:00 PM EDT, 1 tab, PO, bid, Disp# 60 tab, Refills: 3, [facility] Start Date: 10/09/23 Status: Ordered furosemide 20 mg oral tablet Start: 12/20/23 2:38:00 PM EDT, 1 tab, PO, Daily Start Date: 12/20/23 Status: Ordered Metoprolol Succinate ER 25 mg oral tablet, extended release Start: 02/19/24 3:40:00 PM EDT, 1 tab, PO, Daily, Disp# 90 tab, Refills: 3, Pharmacy: [facility]/pharmacy #[id number] Start Date: 02/19/24 Status: Ordered multivitamin Start: 06/21/15 1:07:00 PM EST, 1 tab, PO, Daily Start Date: 06/21/15 Status: Ordered oxyCODONE 5 mg oral tablet Start: 04/08/24 3:15:00 PM EST, 5 mg =, PO, tid, Disp# 90 tab, Refills: 0, Note to Pharmacy: PDMP verified, Do not fill earlier than 28 days from last fill., PRN: as needed for pain, Pharmacy: [facility] #[id number] Start Date: 04/08/24 Stop Date: 05/08/24 Status: Ordered pantoprazole 40 mg oral delayed release tablet Start: 04/23/24 2:20:00 PM EST, 1 tab, PO, Daily, Disp# 90 tab, Refills: 3, Pharmacy: [facility] #[id number] Start Date: 04/23/24 Status: Ordered PARoxetine 20 mg oral tablet Start: 04/08/24 3:15:00 PM EST, 1 tab, PO, Daily, Disp# 90 tab, Refills: 3, take with the 40mg tablet to equal 60mg total, Pharmacy: [facility] #[facility] Start Date: 04/08/24 Status: Ordered PARoxetine 40 mg oral tablet Start: 03/03/24 3:22:00 PM EDT, 1 tab, PO, Daily, Disp# 90 tab, Refills: 3, take with the 20mg tablet to equal 60mg total, Pharmacy: [facility] # Start Date: 03/03/24 Status: Ordered rosuvastatin 40 mg oral tablet Start: 01/01/24 8:00:00 AM EDT, 1 tab, PO, qhs, Disp# 90 tab, Refills: 1, Pharmacy: [facility] STORE [id number] Start Date: 01/01/24 Status: Ordered warfarin 2.5 mg oral tablet Start: 10/11/23 3:23:00 PM EDT, See Instructions, Disp# 45 tab, Refills: 2, Take puj-kef-w-half tablets daily by mouth as directed by [facility]., Note to Pharmacy: ?s: El [phone]., Pharmacy: [facility] #[id number] Start Date: 10/11/23 Status: Ordered warfarin 2.5 mg oral tablet Start: 03/03/24 3:22:00 PM EDT, See Instructions, Disp# 135 tab, Refills: 3, Take qxk-cyd-m-half tablets daily by mouth as directed by [facility]., Note to Pharmacy:?s: El [phone]., Pharmacy: [facility]/pharmacy #[id number] Start Date: 03/03/24 Status: Ordered Mental Status 04/23/24 Barriers to Learning one year None evide nt Mandatory Health Literacy Documentation Yes Health Literacy Communication Barriers N ever Primary Language Georgian Problem List Condition Confirmation Course Effective Dates [...] Effective Dates Health Status Clinical Service Informant Hypertension Discharge Diagnosis 04/23/24 Non-Specified Chronic low back pain Discharge Diagnosis 04/23/24 Non-Specified Chronic neck pain Discharge Diagnosis 04/23/24 Non-Specified Pain in the abdomen Discharge Diagnosis 04/23/24 Non-Specified Procedures Procedure Date Related Diagnosis Body [...] oldest [Reference Range]: 1 Temperature [36.5-37.9 DegC] 36.7 DegC (04/23/24 11:33 AM) Blood Pressure 138/80mmHg (04/23/24 11:33 AM) Cuff Pulse Pressure 58 mmHg (04/23/24 11:33 AM) Social History Social History Type Response Tobacco Former smoker Smoking Status Never smoked cigaret jae Sex Male Sex Representation Male (finding) [facility] Outpt Note * Sanjuanita Poole DO, Mariana Annette: PERFORM Event Display: [facility] Outpt Note Authored Date: Chief Complaint Pt here b/p check. B/p 164/100. This am 149/94. Hr been good. History of Present Illness Acute visit due to elevated BP at home BP 170/100 at home yesterday, was asymptomatic He is on metoprolol ER 25mg daily for Afib,he is also on furosemide but has not been taking lately. Has been having achyabdominal pain and nausea. Periumbilical. Started2 dayas ago.Comesandgoes.Last BM was this AM, was normal, no blood or dark stool.No diarrhea. states his neck and low back pain have been worsening. He's had several surgical interventions and is on chronic opiates. Agreeable to pain management eval. Physical Exam Vitals & Measurements T:36.7C BP:138/80 SpO2:98% PHQ2 Data(Data Documented on:04/23/2024 11:33) Emotional health assessment NEGATIVE General: _Alert and oriented, No acute distress Cardiovascular: _Normal rate, Regular rhythm, No murmur, No gallop. Respiratory: _Lungs are clear to auscultation, Respirations are non-labored, Breath sounds are equal Gastrointestinal: _Soft, periumbilicalTTP no rebound or guarding,Non- distended, Normal bowel sounds. Psych: Mood-affect congruence. Reports no SI/HI. Speech is of normal pace and content Assessment/Plan 1.Hypertension Better today likely related to pain 2.Pain in the abdomen Unclear etiology will obtain CT abd/pelvis 3.Chronic neck pain 4.Chronic low back pain Referral to pain management for evaluation Attestation Time spent: Pre-visit planning: _5 Vfbq-xb-[id number] visit: _25 Post-visit (orders/documentation/coordination of care):4 Total visit time: _34 Problem List/Past Medical History Ongoing Abnormal gait Anemia Atrial fibrillation Chronic anxiety Chronic back pain Chronic renal failure, stage 3 (moderate) Depression 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 Failed back syndrome, lumbar GERD (gastroesophageal reflux disease) Headache Hearing loss HFrEF (heart failure with reduced ejection fraction) High cholesterol History of lumbar fusion History of spinal fusion Hx of carcinoma in situ of prostate Hypertension Opioid contract exists Spinal stenosis in cervical region Spinal stenosis [...] status Pleuritic pain Polyuria Poor urinary stream Prostate cancer Renal impairment Repeated prescription Sciatica Shoulder pain [...] tablet), 5 mg= 1 tab, PO, bid famotidine(famotidine 20 mg oral tablet), 20 mg= 1 tab, PO, bid, 3 refills furosemide, 20 mg= 1 tab, PO, Daily furosemide(furosemide 20 mg oral tablet), 20 mg= 1 tab, PO, Daily metoprolol(Metoprolol Succinate ER 25 mg oral tablet, extended release), 25 mg= 1 tab, PO, Daily, 3refills multivitamin, 1 tab, PO, Daily oxyCODONE(oxyCODONE 5 mg oral tablet), 5 mg, PO, tid, PRN PARoxetine(PARoxetine 20 mg oral tablet), 20 mg= 1 tab, PO, Daily, 3 refills PARoxetine(PARoxetine 40 mg oral tablet), 40 mg= 1 tab, PO, Daily, 3 refills rosuvastatin(rosuvastatin 40 mg oral tablet), 1 tab, PO, qhs warfarin(warfarin 2.5 mg oral tablet), See Instructions, [...] due11/03/23and every 1year Due Adult COVID-19 Vaccination due04/23/24Unknown Frequency Adult Social Determinants of Health Screening due04/23/24Unknown Frequency Adult Tdap/Td Vaccine due04/23/24Unknown Frequency Diabetic Eye Exam due04/23/24Unknown Frequency Falls Plan of Care due04/23/24Unknown Frequency Hepatitis C Screening due04/23/24One-time only Medicare Annual Wellness Visit due04/23/24and every 1year Pneumococcal Vaccine Older Adults due04/23/24One-time only Shingles Vaccine due04/23/24One-time only Due In Future Body Mass Index not due until04/16/25and every 366day Satisfied(in the past 1 year) Satisfied Body Mass Index on01/21/24.Satisfied by NATHALY Shea Bobbi PHQ-9 After Positive PHQ-2 on12/20/23.Satisfied by CIELO Costello Lori Electronic Signature on File Electronically Reviewed/Signed by: Niya Poole DO Author Signature Dt/Tm:04/23/2024 12:13 PM Department of Family Medicine [facility] Patient Care team information Care Team Personnel Name: Sanjuanita Poole DO, Niya Ospina Position: Physician - Family Med Member Role: Primary Care Provider Address: [address] [place] [address] [address] [place] [address] [place] Name: Alan Marsh Todd Position: Pharmacist Schedule II Member Role: Pharmacy - Lifetime Address: [address] [place] [id number] [place] Name: Alan Garcia Francis Position: Pharmacist Schedule II Member Role: Pharmacy - Lifetime Address: [facility] [address] [place] [address] [place] Name: CLAUDIA Melvin Katy Marie Position: Nurse Pract - Family Med Member Role: Lifetime Relationship Address: [address] [place] [address] [address] [place] [address] [place] Care Team Related Persons Name: EVANGELINA VÁSQUEZ Name: LISSETH VÁSQUEZ Name: LISSETH VÁSQUEZ Name: SARA BURDICK Name: MARY JANE DAMIAN"
[2024-05-13] MEDS ORDERED: HYDROmorphone INJ 0.5 MG/0.5 ML SYR IV PRN (19:56)
[2024-05-13] MEDS ORDERED: oxyCODONE HCL IR 5 MG TAB (IMMEDIATE RELEASE) PO PRN ×2 (19:56)
[2024-05-13] MEDS ORDERED: SUCRALFATE 1 GM TAB PO PRN (19:56)
[2024-05-13] MEDS: diazePAM 5 MG TABLET PO SCH (21:06)
[2024-05-13] MEDS: PARoxetine HCL 20 MG TAB PO SCH (21:06)
[2024-05-13] MEDS: ROSUVASTATIN CALCIUM 20 MG TAB PO SCH (21:07)
[2024-05-13] MEDS: HYDROmorphone INJ 0.5 MG/0.5 ML SYR IV PRN (21:09)
[2024-05-13] MEDS: ACETAMINOPHEN 500 MG TAB PO SCH (21:13)
[2024-05-13] MEDS: HYDROmorphone HCL 2 MG TAB PO PRN (22:00)
--- NOTE | 2024-05-14 07:34 | Electrocardiogram Report ---
Test Reason : Blood Pressure : */* mmHG Vent. Rate : 150 BPM Atrial Rate : * BPM P-R Int : * ms QRS Dur : 80 ms QT Int : 278 ms P-R-T Axes : * 18 46 degrees QTcB Int : 439 ms Poor data quality, interpretation may be adversely affected Atrial fibrillation with rapid ventricular response Abnormal ECG When compared with ECG of 15-Jan-2024 15:54, Atrial fibrillation has replaced Sinus rhythm Vent. rate has increased by 95 bpm Confirmed by Greg Patterson ([id number]) on 05/14/2024 7:34:28 AM Referred By: Niya Poole Confirmed By: Greg Patterson
[2024-05-14] MEDS: METOPROLOL SUCC 25MG EXT REL TAB PO SCH (08:05)
[2024-05-14] MEDS: PANTOprazole 40 MG TAB PO SCH (08:06)
--- NOTE | 2024-05-14 08:35 | Electrocardiogram Report ---
Test Reason : Blood Pressure : */* mmHG Vent. Rate : 90 BPM Atrial Rate : 90 BPM P-R Int : 136 ms QRS Dur : 86 ms QT Int : 388 ms P-R-T Axes : 95 37 55 degrees QTcB Int : 474 ms Normal sinus rhythm Diffuse Minor Nonspecific ST abnormality Abnormal ECG When compared with ECG of 13-May-2024 11:45, Sinus rhythm has replaced Atrial fibrillation Vent. rate has decreased by 60 bpm Confirmed by Addison Salas ([id number]) on 05/14/2024 8:35:23 AM Referred By: Niya Poole Confirmed By: Addison Salas
[2024-05-14 09:47] LABS: Hematocrit (blood only) 28.7 % (42.0-52.0); Hemoglobin 9.9 g/dl (14.0-18.0); Mean Corpuscular Hemoglobin 32.7 pg (25.0-34.0); Mean Corpuscular Hgb Conc 34.5 g/dL (32.0-36.0); Mean Corpuscular Volume 94.7 fL (80.0-100.0); Platelet Count 164 K/uL (130-400); RDW Coefficient of Variation 13.5 % (11.5-14.5); RDW Standard Deviation 46.7 fL (36.4-46.3); Red Blood Count 3.03 M/uL (4.70-6.10); White Blood Count 4.96 K/ul (4.8-10.8)
[2024-05-14 09:57] LABS: Albumin Globulin Ratio 1.8 (0.9-2); Albumin Level 3.8 gm/dl (3.4-5.0); BUN Creatinine Ratio 12.1 (10-20); Bilirubin,Total 1.1 mg/dl (0.2-1.0); Calcium 8.5 mg/dl (8.6-10.3); Creatinine Clr Calc Pharmacy 55.7 ml/min; Globulin 2.1 gm/dl (2.5-4.0); Potassium 3.6 mmol/L (3.5-5.1); Total Protein 5.9 gm/dl (6.0-8.3)
[2024-05-14 10:07] LABS: INR 4.7 (0.9-1.1); Prothrombin Time 44.1 Seconds (9.0-12.0)
[2024-05-14] MEDS: PHYTONADIONE 5 MG in DEXTROSE 5% 50 ML IV ONE (10:42)
[2024-05-14] MEDS: HYDROmorphone INJ 1 MG/ML SYRINGE IV PRN (12:24)
--- NOTE | 2024-05-14 12:28 | Hospitalist Progress Note ---
Date of Service May 14, 2024 Assessment & Plan (1) Hematoma of right buttock: Plan: Developed after he fell. Coumadin is on hold and he is receiving vitamin K. Heating pad ordered. Pain control measures. Hold warfarin. (2) Coumadin toxicity: (3) Acute blood loss anemia: Plan: Hemoglobin has dropped to 9.9. No transfusion necessary at this point. Serial labs (4) Supratherapeutic INR: Plan: Continue vitamin K administration until INR has normalized. Serial labs. Coumadin has been discontinued (5) Paroxysmal atrial fibrillation: Plan: Current NSR. Continue metoprolol. Coumadin has been discontinued. Telemetryl Plan Anticipate eventual discharge to home within the next 2 to 3 days Admission and Anticipated Discharge Date Admission Date: May 13, 2024 Subjective Alert and oriented. He is having some pain at the right buttock hematoma site. He was supratherapeutic on Coumadin at the time of admission. INR was 6.7 and is now 4.7 after vitamin K administered on admission. He will receive another 5 mg intravenously of vitamin K now and serial INR measurements ordered. Coumadin is currently on hold. Dilaudid IV as needed for pain. Review of Systems 2 Review of Systems: Constitutionalno fever or chills ENTno blurred vision, no double vision, no epistaxis, no sore throat Respiratoryno cough, no wheezing, no shortness of breath Cardiacno palpitations, no chest pain, no syncope Irena nausea, vomiting, diarrhea, melena, hematochezia GUno urinary retention, no urinary incontinence, no dysuria, no hematuria Musculoskeletalright buttock pain from fall and hematoma Skinextensive ecchymoses noted right buttock Neurono isolated weakness, no paresthesia, no weakness Psychno depression, no anxiety Physical Exam 2 Physical Exam: General-alert and oriented x3, no fever, no chills HEENT-head atraumatic and normocephalic, pupils equal and reactive to light, extraocular muscles intact Neck-no lymphadenopathy or thyromegaly, trachea midline Chest-clear to auscultation. No rales, wheezing or rhonchi Cardiac-regular rate and rhythm, normal S1 and S2 Abdomen-normal bowel sounds, no hepatosplenomegaly Extremities-no cyanosis, clubbing, or edema Skinextensive ecchymoses right buttock with palpable tenderness and firmness Neuro-cranial nerves II through XII intact, motor and sensory function within normal limits, strength symmetrical, no focal deficits Psych-normal affect, normal mood Results & Data Results & Data Vital Signs (Past 12 Hours) Vital Signs Temp Pulse Resp BP Pulse Ox O2 Del Method 05/14/24 07:14 36.4 C L 63 18 98/60 L 97 Room Air Laboratory Results 05/14/24 09:05 05/14/24 09:05 PG Care Time/CCT Total # of Minutes Spent Total Time Spent with Patient: Total time spent is greater than 50% in coordination of care (as documented) at patient's floor/unit and/or counseling patient: Coding Level of Care Code 58556 SUB INP/OBS CARE 3/50MIN Diagnoses Hematoma of right buttock S30.0XXA Coumadin toxicity T45.511A Acute blood loss anemia D62 Supratherapeutic INR R79.1 Paroxysmal atrial fibrillation I48.0
[2024-05-14 20:05] LABS: INR 1.9 (0.9-1.1); Prothrombin Time 19.3 Seconds (9.0-12.0)
[2024-05-15 07:22] LABS: Basophils # (auto) 0.02 K/uL (0.00-0.20); Basophils % (auto) 0.4 %; Eosinophils # (auto) 0.29 K/uL (0.00-0.50); Hematocrit (blood only) 29.7 % (42.0-52.0); Hemoglobin 10.1 g/dl (14.0-18.0); Immature Granulocytes # (auto) 0.01 K/uL (0.01-0.20); Immature Granulocytes % (auto) 0.2 %; Lymphocytes # (auto) 1.07 K/uL (1.20-3.40); Lymphocytes % (auto) 22.1 %; Mean Corpuscular Hemoglobin 32.3 pg (25.0-34.0); Mean Corpuscular Volume 94.9 fL (80.0-100.0); Monocytes # (auto) 0.62 K/uL (0.11-0.59); Monocytes % (auto) 12.8 %; Neutrophils # (auto) 2.84 K/uL (1.40-6.50); Neutrophils % (auto) 58.5 %; Platelet Count 184 K/uL (130-400); RDW Coefficient of Variation 13.2 % (11.5-14.5); RDW Standard Deviation 45.6 fL (36.4-46.3); Red Blood Count 3.13 M/uL (4.70-6.10); White Blood Count 4.85 K/ul (4.8-10.8)
[2024-05-15 07:32] VITALS: BP 120/69; PULSE 89; RESP 20; TEMP 97.9; O2SAT 95
[2024-05-15 07:49] LABS: Calcium 8.5 mg/dl (8.6-10.3); Creatinine Clr Calc Pharmacy 63.4 ml/min; Potassium 3.9 mmol/L (3.5-5.1)
[2024-05-15 07:58] LABS: INR 1.3 (0.9-1.1); Prothrombin Time 14.2 Seconds (9.0-12.0)
--- NOTE | 2024-05-15 12:16 | Discharge Summary ---
Discharge Summary Date of Service May 15, 2024 Principal Dx & Hospital Course #1 = Principal Diagnosis (1) Hematoma of right buttock: Developed after he fell. Coumadin has been discontinued and reversed with vitamin K. Heating pad application 3 times daily for 20 minutes each application. Pain control measures. (2) Coumadin toxicity: Elevated INR on admission. This has been reversed with vitamin K. Coumadin has been discontinued (3) Acute blood loss anemia: Hemoglobin has dropped to 9.9. No transfusion necessary at this point. Serial labs (4) Supratherapeutic INR: Coumadin has been reversed with intravenous vitamin K. Serial labs. Coumadin has been discontinued (5) Paroxysmal atrial fibrillation: Current NSR. Continue metoprolol. Coumadin has been discontinued. Telemetry Plan Home today, May 15 Admission HPI Per Admitting Provider Sawyer Coleman is a 74 year old male who presents to the ER with right buttocks pain following a fall 2-3 days ago. He denies hitting his head. He called his family doctor today due to pain in his right gluteal region and he felt like something was broken therefore was advised to go to the ER. He is unsure why his INR is so high today. He notes he takes his INR at home and has his warfarin adjusted by someone at [facility]. This gluteal pain is severity 10/10 and radiates down to his foot, worse on any movement or pressure on this area. No new numbness. No anal numbness or loss of tone. He does feel he has to push harder to pass urine and having bowel movements. Initially he was in atrial fibrillation in the ER but spontaneously converted to NSR. Discharge Exam General-alert and oriented x3, no fever, no chills HEENT-head atraumatic and normocephalic, pupils equal and reactive to light, extraocular muscles intact Neck-no lymphadenopathy or thyromegaly, trachea midline Chest-clear to auscultation. No rales, wheezing or rhonchi Cardiac-regular rate and rhythm, normal S1 and S2 Abdomen-normal bowel sounds, no hepatosplenomegaly Extremities-no cyanosis, clubbing, or edema Skinextensive ecchymoses right buttock with palpable tenderness and firmness Neuro-cranial nerves II through XII intact, motor and sensory function within normal limits, strength symmetrical, no focal deficits Psych-normal affect, normal mood Discharge Plan Discharge Items Patient Disposition: Home - Self-Care Reason For Visit: RIGHT GLUTEAL HEMATOMA Discharge Diagnosis: Mechanical fall, Coumadin toxicity, right gluteal hematoma, acute blood loss anemia Activity: Resume your previous activity Non-emergency contact: Primary Care Provider Call non-emergency contact if: your symptoms worsen Follow-up/Referrals: Nithya Foster MD [Primary Care Provider] - Diet: Regular Addtl Attending Provider Instructions: Stop Coumadin for now. Apply heat to right buttock hematoma 3 times a day, 20 minutes each time. Take oxycodone 10 mg every 6 hours as needed for pain Pending Studies at Discharge: No Stand-Alone Forms: My [employer], Smoking Cessation Medications and DC Order Prescriptions: New oxycodone 10 mg tablet 10 mg PO Q6H PRN (Reason: pain) Qty: 20 0RF Continued multivitamin Tablet 1 tab PO HS paroxetine HCl [Paxil] 40 mg tablet 40 mg PO HS Rx Instructions: Take 40mg w/ 20mg to equal 60mg at bedtime paroxetine HCl 20 mg tablet 20 mg PO HS Rx Instructions: TAKE WITH 40MG = 60MG at bedtime rosuvastatin 40 mg tablet 40 mg PO HS diazepam 5 mg tablet 5 mg PO BID cholecalciferol (vitamin D3) [Vitamin D3] 25 mcg (1,000 unit) Tablet 25 mcg PO HS oxycodone 5 mg tablet 5 mg PO TID PRN (Reason: pain) Qty: 9 0RF colchicine 0.6 mg tablet 0.6 mg PO DAILY PRN (Reason: Gout Flare) pantoprazole 40 mg tablet,delayed release (DR/EC) 40 mg PO DAILY metoprolol succinate 25 mg tablet extended release 24 hr 25 mg PO DAILY sucralfate 1 gram tablet 1 g PO QID PRN (Reason: Gi Upset) Discontinued warfarin 2.5 mg tablet 5 mg PO HS Discharge Orders: Discharge Order (Routine); Ordered 05/15/24 Ordered By: Yovani Myers Admission Data Admit Date/Time: 05/13/24 18:53 Attending Provider: Yovani Myers Admit Provider: Kostas Fofana Primary Care Provider: Nithya Foster Other Providers: Kostas Fofana Hospital Stay Data Consultations 05/13/24 14:26 ED Decision to Admit Stat Diagnostic Imagining Performed 05/13/24 11:58 CT abd pelvis IV con only Stat Pending Results Patient Have Any Pending Studies at Discharge: No Discharge Instructions Given to Patient (Per Discharging Provider) Stop Coumadin for now. Apply heat to right buttock hematoma 3 times a day, 20 minutes each time. Take oxycodone 10 mg every 6 hours as needed for pain Total Time Total Time Spent Total Time Spent (In Minutes): 45 minutes Coding Level of Care Code 81023 INP/OBS DISCH >30 MIN Diagnoses Hematoma of right buttock S30.0XXA Coumadin toxicity T45.511A Acute blood loss anemia D62 Supratherapeutic INR R79.1 Paroxysmal atrial fibrillation I48.0
== END 2024-05-15 14:07 | disposition home or self-care (01) ==
LOC: ED 11:37 → EDINP 11:37 → SUATTDRO 18:53 → 3W 19:57

== ENCOUNTER 2024-11-11 17:31 | Inpatient (IN) ==
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
[2024-11-11] MEDS: OPTIRAY 320 100ml IV ONE (17:50)
[2024-11-11 17:52] LABS: Hematocrit (blood only) 33.6 % (42.0-52.0); Hemoglobin 11.2 g/dl (14.0-18.0); Immature Granulocytes # (auto) 0.03 K/uL (0.01-0.20); Immature Granulocytes % (auto) 0.3 %; Mean Corpuscular Hemoglobin 31.6 pg (25.0-34.0); Mean Corpuscular Volume 94.9 fL (80.0-100.0); Platelet Count 195 K/uL (130-400); RDW Standard Deviation 47.8 fL (36.4-46.3); Red Blood Count 3.54 M/uL (4.70-6.10); White Blood Count 10.12 K/ul (4.8-10.8)
--- NOTE | 2024-11-11 18:08 | XRay Report ---
Clinical History: Trauma Technique: 2 frontal views of the chest were obtained Comparison is made to the prior examination dated 06/17/2024 Findings: There is new diffuse interstitial prominence, concerning for pulmonary edema. The heart size is within normal limits. No pleural effusion or pneumothorax is seen. There is no definite pulmonary nodule. No fracture is noted. There is thoracic degenerative disc disease Impression: New diffuse interstitial prominence, likely due to pulmonary edema ACT 112: Positive. There are findings on this exam that require communication between the performing entity and the patient following Patient Test Result Information Act ([place] ACT 112) guidelines. Electronically signed by Marvin Clemente 11-11-2024 6:08 PM
[2024-11-11 18:09] LABS: Alanine Aminotransferase 44 U/L (7-52); Albumin Globulin Ratio 1.6 (0.9-2); Alkaline Phosphatase 80 U/L (34-104); Anion Gap 9 (3-11); Bilirubin,Total 2.0 mg/dl (0.2-1.0); Blood Urea Nitrogen 17 mg/dl (6-23); Calcium 8.8 mg/dl (8.6-10.3); Carbon Dioxide 23 mmol/L (21-32); Chloride 105 mmol/L (98-107); Creatine Kinase 544 U/L (30-223); Globulin 2.4 gm/dl (2.5-4.0); Glucose 107 mg/dl (70-99(Fasting)); Lipase 13 U/L (11-82); Potassium 4.0 mmol/L (3.5-5.1); Sodium 137 mmol/L (136-145); Total Protein 6.3 gm/dl (6.0-8.3)
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
[2024-11-11 18:19] LABS: INR 1.2 (0.9-1.1); Partial Thromboplastin Time 28 Seconds (21-31); Prothrombin Time 13.2 Seconds (9.0-12.0)
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
[2024-11-11] MEDS: SODIUM CHLORIDE 0.9% 1,000 ML IV ONE (18:34)
[2024-11-11] MEDS: ACETAMINOPHEN 1,000 MG/100 ML VIAL IV STA (18:34)
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
[2024-11-11] MEDS: MoRPHine SULFATE 4 MG/ML 1 ML CARP\\VIAL IV STA (20:20)
[2024-11-11 20:39] LABS: Appearance Urine Clear (Clear); Bacteria Urine Automated None Seen (None Seen); Cast Urine Automated 0-2 /lpf (0-2); Epithelial Cell Urine Auto 0-2 /hpf (0-2); Glucose Urine UA Negative (Negative); RBC Urine Automated 0-2 /hpf (0-2); WBC Urine Automated 0-5 /hpf (0-5)
[2024-11-11] MEDS: FUROSEMIDE INJ 20 MG/2 ML VIAL IV ONE (20:40)
[2024-11-11] MEDS ORDERED: DEXTROSE 50% 50 ML SYRINGE IV PRN (21:47)
[2024-11-11] MEDS ORDERED: GLUCOSE 40% GEL 15 GM TUBE PO PRN (21:47)
[2024-11-11] MEDS ORDERED: GLUCAGON FOR INJ 1 MG VIAL SQ PRN (21:47)
[2024-11-11] MEDS ORDERED: GLUCOSE 10 TAB/TUBE PO PRN (21:47)
[2024-11-11] MEDS ORDERED: POLYETHYLENE (MIRALAX) 17 GM PACK PO PRN (21:47)
[2024-11-11] MEDS ORDERED: MoRPHine SULFATE 2 MG/ML CARP IV PRN (21:47)
[2024-11-11] MEDS ORDERED: CARBOHYDRATES FOR HYPOGLYCEMIA PO PRN (21:47)
[2024-11-11] MEDS ORDERED: ACETAMINOPHEN 325 MG TAB PO PRN (21:47)
[2024-11-11] MEDS ORDERED: FUROSEMIDE 40 MG/4 ML VIAL IV ONE (21:47)
[2024-11-11] MEDS: REMOVE LIDODERM PATCH SCH (21:52)
[2024-11-11] MEDS: INSULIN ASPART PER UNIT CHARGE SC SCH (21:53)
[2024-11-11 22:07] LABS: Magnesium 1.5 mg/dl (1.7-2.4)
[2024-11-11] MEDS: METOPROLOL SUCC 50MG EXT REL TAB PO SCH (22:46)
[2024-11-11] MEDS: LIDOCAINE 5% 1 PATCH TD STA (22:46)
[2024-11-12] MEDS: MoRPHine SULFATE 4 MG/ML 1 ML CARP\\VIAL IV PRN (00:28)
[2024-11-12] MEDS: ONDANSETRON INJ 2 MG/ML 2 ML VIAL IV PRN (08:30)
[2024-11-12] MEDS: DOCUSATE SODIUM/SENNA 50/8.6MG TAB PO SCH (08:30)
[2024-11-12] MEDS: FUROSEMIDE 40 MG/4 ML VIAL IV ONE (08:53)
[2024-11-12 10:03] LABS: Hematocrit (blood only) 31.5 % (42.0-52.0); Hemoglobin 10.7 g/dl (14.0-18.0); Mean Corpuscular Hemoglobin 32.4 pg (25.0-34.0); Mean Corpuscular Volume 95.5 fL (80.0-100.0); Platelet Count 175 K/uL (130-400); RDW Standard Deviation 48.0 fL (36.4-46.3); Red Blood Count 3.30 M/uL (4.70-6.10); White Blood Count 8.13 K/ul (4.8-10.8)
[2024-11-12 10:35] LABS: Anion Gap 9.0 (3-11); Calcium 8.7 mg/dl (8.6-10.3); Carbon Dioxide 24.0 mmol/L (21-32); Chloride 105.0 mmol/L (98-107); Potassium 4.0 mmol/L (3.5-5.1); Sodium 138.0 mmol/L (136-145)
[2024-11-12 10:41] LABS: Blood Urea Nitrogen 19.0 mg/dl (6-23); Creatine Kinase 323.0 U/L (30-223); Creatinine Clr Calc Pharmacy 58.7 ml/min; Glucose 115.0 mg/dl (70-99(Fasting))
[2024-11-12] MEDS: REMOVE LIDODERM PATCH ONE (11:38)
[2024-11-12 14:05] LABS: Magnesium 1.5 mg/dl (1.7-2.4)
[2024-11-12 15:10] VITALS: RESP 18
[2024-11-12] MEDS: MAGNESIUM OXIDE 400 MG TAB PO ONE (17:07)
--- NOTE | 2024-11-12 18:34 | Electrocardiogram Report ---
Test Reason : Blood Pressure : */* mmHG Vent. Rate : 123 BPM Atrial Rate : * BPM P-R Int : * ms QRS Dur : 78 ms QT Int : 308 ms P-R-T Axes : * -15 -21 degrees QTcB Int : 440 ms Atrial fibrillation with rapid ventricular response possible Inferior infarct , age undetermined Abnormal ECG When compared with ECG of 17-Jun-2024 18:43, Atrial fibrillation has replaced Sinus rhythm Vent. rate has increased by 41 bpm T wave inversion now evident in Inferior leads Confirmed by Kyaw Guzman ([id number]) on 11/12/2024 6:34:03 PM Referred By: REFERRED SELF Confirmed By: Kyaw Guzman
[2024-11-12] MEDS: MAGNESIUM SULFATE / D5W 1 GM/100 ML BAG IV SCH (20:40)
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
[2024-11-13 03:44] VITALS: O2SAT 98
[2024-11-13 08:01] VITALS: TEMP 97.5
[2024-11-13 10:21] VITALS: BP 110/77; PULSE 82
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
== END 2024-11-13 10:54 | disposition home or self-care (01) | DRG 206 ==
LOC: ED 17:31 → SUATTDRO 19:40 → 2N 19:40

== ENCOUNTER 2024-12-09 00:13 | Inpatient (IN) ==
[2024-12-09 00:27] VITALS: TEMP 97.5
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
[2024-12-09] MEDS: ACETAMINOPHEN 1,000 MG/100 ML VIAL IV STA (00:59)
[2024-12-09] MEDS: PANTOprazole 40 MG/10 ML SYR IV ONE (00:59)
[2024-12-09] MEDS: FAMOTIDINE 20MG IV PUSH 20 MG/5 ML SYR IV STA (00:59)
[2024-12-09] MEDS: CETIRIZINE HCL 10 MG TABLET PO ONE (00:59)
[2024-12-09] MEDS: SODIUM CHLORIDE 0.9% 1,000 ML IV SCH (01:03)
[2024-12-09 01:23] LABS: Hematocrit (blood only) 40.8 % (42.0-52.0); Hemoglobin 13.2 g/dl (14.0-18.0); Immature Granulocytes # (auto) 0.03 K/uL (0.01-0.20); Immature Granulocytes % (auto) 0.3 %; Mean Corpuscular Hemoglobin 31.0 pg (25.0-34.0); Mean Corpuscular Volume 95.8 fL (80.0-100.0); Platelet Count 220 K/uL (130-400); RDW Standard Deviation 48.1 fL (36.4-46.3); Red Blood Count 4.26 M/uL (4.70-6.10); White Blood Count 8.68 K/ul (4.8-10.8)
[2024-12-09 01:42] LABS: Alanine Aminotransferase 14.0 U/L (7-52); Albumin Globulin Ratio 1.6 (0.9-2); Alkaline Phosphatase 95.0 U/L (34-104); Anion Gap 15.0 (3-11); Bilirubin,Total 0.6 mg/dl (0.2-1.0); Blood Urea Nitrogen 62.0 mg/dl (6-23); Calcium 9.8 mg/dl (8.6-10.3); Carbon Dioxide 21.0 mmol/L (21-32); Chloride 101.0 mmol/L (98-107); Creatinine Clr Calc Pharmacy 20.0 ml/min; Globulin 3.2 gm/dl (2.5-4.0); Glucose 103.0 mg/dl (70-99(Fasting)); Lipase 33.0 U/L (11-82); Magnesium 2.3 mg/dl (1.7-2.4); Potassium 5.2 mmol/L (3.5-5.1); Sodium 137.0 mmol/L (136-145); Total Protein 8.3 gm/dl (6.0-8.3)
--- NOTE | 2024-12-09 02:07 | XRay Report ---
EXAM: XR chest 1V portable CLINICAL HISTORY: tachycardia TECHNIQUE: An X-ray image of the chest is obtained in AP projection. COMPARISON: Compared to the previous studies dated 11/11/2024. FINDINGS: Pulmonary Parenchyma: Prominent hilar and basal pulmonary vasculature is still noted. No evidence of consolidation, collapse, or focal opacities. No pulmonary nodules are identified. No evidence of pleural effusion or pleural thickening. Heart and Mediastinum: Enlarged cardiac size with curvilinear atheromatous calcifications of the aortic arch. No mediastinal widening or masses. No hilar or mediastinal lymphadenopathy. Bony Thorax: Degenerative changes in the visualized spine. A partially visualized lower thoracic and cervical metallic fixators. Soft Tissues: Soft tissues overlying the chest wall are unremarkable. Overlying chest leads are seen. IMPRESSION: 1. Enlarged heart with mild perihilar congestion(unchanged). 2. Previously seen moderate pleural effusions on the CT are not visualized on the current radiograph. Electronically signed by Kam Etienne 12-09-2024 02:07 AM
[2024-12-09 02:44] LABS: Appearance Urine Clear (Clear); Bacteria Urine Automated None Seen (None Seen); Epithelial Cell Urine Auto 0-2 /hpf (0-2); Glucose Urine UA Negative (Negative); RBC Urine Automated 0-2 /hpf (0-2); WBC Urine Automated 0-5 /hpf (0-5)
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
[2024-12-09 03:24] LABS: Creatine Kinase 305.0 U/L (30-223)
--- NOTE | 2024-12-09 04:21 | Ultrasound Report ---
EXAM: US renal/blad retro comp CLINICAL HISTORY: arleth TECHNIQUE: A renal ultrasound was performed using grayscale imaging. COMPARISON: No previous studies are available for comparison. FINDINGS: Right Kidney: The right kidney measures 9.5 x 5 x 4.8 cm. Upper pole cyst, measuring 1.9x2.5 cm. A hypoechoic area in the mid pole of the right kidney measuring 1.6 x 1.4 x 2.1 cm, possibly a complicated cyst. No hydronephrosis, calculi, or masses were identified. Renal parenchymal echogenicity is normal. Cortical thickness: Within normal. The renal pelvis is within normal. Left Kidney: The left kidney measures 9.6 x 6.7 x 5 cm. Two simple cortical cysts are noted midpolar, measuring 0.9 x 0.8 cm and 1.4 x 1.1 cm. No hydronephrosis, calculi, or masses were identified. Renal parenchymal echogenicity is normal. Cortical thickness: Within normal. The renal pelvis is within normal. Urinary bladder: The urinary bladder is underdistended yet showing no calculi or masses. IMPRESSION: 1. Normal renal parenchymal echogenicity. 2. No evidence of obstructing renal calculus or hydronephrosis. 3. Bilateral renal cortical simple cysts. 4. Impression of a right renal midpole complicated cyst. Electronically signed by Kam Etienne 12-09-2024 04:20 AM
[2024-12-09 05:09] LABS: INR 3.0 (0.9-1.1); Prothrombin Time 29.1 Seconds (9.0-12.0)
[2024-12-09] MEDS ORDERED: POLYETHYLENE (MIRALAX) 17 GM PACK PO PRN (05:20)
[2024-12-09] MEDS ORDERED: ONDANSETRON INJ 2 MG/ML 2 ML VIAL IV PRN (05:20)
[2024-12-09] MEDS ORDERED: SUCRALFATE 1 GM TAB PO PRN (05:20)
[2024-12-09] MEDS ORDERED: MELATONIN 3 MG TAB PO PRN (05:20)
[2024-12-09] MEDS: LACTATED RINGER'S 1,000 ML IV SCH (05:28)
[2024-12-09] MEDS: diphenhydrAMINE Capsule 25 MG CAP PO PRN (05:31)
[2024-12-09 06:30] VITALS: O2SAT 97
[2024-12-09 08:01] VITALS: BP 107/74; PULSE 99; RESP 18
[2024-12-09 10:29] LABS: Anion Gap 10.0 (3-11); Blood Urea Nitrogen 56.0 mg/dl (6-23); Calcium 8.9 mg/dl (8.6-10.3); Carbon Dioxide 21.0 mmol/L (21-32); Chloride 104.0 mmol/L (98-107); Creatinine Clr Calc Pharmacy 27.6 ml/min; Glucose 111.0 mg/dl (70-99(Fasting)); Potassium 3.9 mmol/L (3.5-5.1); Sodium 135.0 mmol/L (136-145)
--- NOTE | 2024-12-09 11:00 | Electrocardiogram Report ---
Test Reason : Blood Pressure : */* mmHG Vent. Rate : 113 BPM Atrial Rate : * BPM P-R Int : * ms QRS Dur : 86 ms QT Int : 348 ms P-R-T Axes : * 29 50 degrees QTcB Int : 477 ms Atrial fibrillation with rapid ventricular response Abnormal ECG When compared with ECG of 11-Nov-2024 17:38, Criteria for Inferior infarct are no longer Present T wave inversion no longer evident in Inferior leads Confirmed by Kyaw Guzman ([id number]) on 12/09/2024 11:00:39 AM Referred By: REFERRED SELF Confirmed By: Kyaw Guzman
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
== END 2024-12-09 11:30 | disposition left against medical advice (07) | DRG 683 ==
LOC: ED 00:13 → 3N 03:24 → SUATTDRO 03:24 → 3N 05:15